=== PATIENT | male | born 1965 | race Caucasian/White ===

== ENCOUNTER → 2016-05-08 | Outpatient (CLI) | payer MEDICARE, OTHER ==
--- NOTE | 2016-05-08 11:44 | FL ---
EXAMINATION TYPE: FL barium swallow DATE OF EXAM ORDERED: 05/08/2016 11:28 AM HISTORY: Reflux and heartburn. COMPARISON: None. FINDINGS: The esophagus distended normally with air and barium without evidence of obstructing or co nstricting disease. The mucosal pattern throughout the esophagus is within normal limits. There is no significant hiatal hernia or reflux. The lower esophagus is somewhat patulous. IMPRESSION: MILDLY PATULOUS LOWER ESOPHAGUS.
== END | disposition home or self-care (01) ==
LOC: RADFLWHC 10:58
PROVIDERS: ATTEND Family Medicine
DX: K22.8 Other specified diseases of esophagus (principal)
CPT/HCPCS: 74220

== ENCOUNTER 2016-06-26 11:30 | Inpatient (IN) | payer MEDICARE, OTHER ==
[2016-06-26] MEDS ORDERED: SODIUM CHLORIDE 0.9% 500 ML IV STA (12:00)
[2016-06-26] MEDS ORDERED: METOCLOPRAMIDE 5 MG/ML 2 ML VIAL IVP STA (12:00)
[2016-06-26] MEDS ORDERED: SODIUM CHLORIDE 0.9% 1,000 ML IV STA (12:00)
[2016-06-26] MEDS ORDERED: DIPHENOX-ATROP 2.5-0.025 MG 1 EACH TAB PO STA (12:00)
--- NOTE | 2016-06-26 12:03 | ED ---
General Adult HPI - General Chief complaint: Nausea/Vomiting/Diarrhea Stated complaint: SORE THROAT, DIZZINESS, VOMITING X 3 DAYS Time Seen by Provider: 06/26/16 11:55 Source: patient, RN notes reviewed Mode of arrival: ambulatory Limitations: no limitations - History of Present Illness Initial comments: This is a 50-year-old male who presents emergency department with past medical history significant for alcoholism. Patient states she's been sober for 9 months. Patient comes in today because the last 3 days he states been vomiting and having diarrhea. Patient states he doesn't have any abdominal pain or has been some abdominal cramping. Patient states he can't keep anything down so he is feeling a little lightheaded and just overall feeling fatigued. Patient denies any headache patient denies any numbness weakness. Patient denies any disorientation. Patient denies any chest pain palpitations or difficulty breathing. Patient denies any blood emesis or in the diarrhea - Related Data Home Medications Medication Instructions Recorded Confirmed Benztropine Mesylate [Cogentin] 1 mg PO DAILY 06/26/16 06/26/16 Cyanocobalamin (Vitamin B-12) 5,000 mcg PO DAILY 06/26/16 06/26/16 [Vitamin B12] Ergocalciferol [Vitamin D2] 50,000 unit PO Q7D 06/26/16 06/26/16 Lisinopril [Zestril] 20 mg PO DAILY 06/26/16 06/26/16 Ranitidine HCl [Zantac] 150 mg PO BID 06/26/16 06/26/16 diphenhydrAMINE [Benadryl] 50 mg PO HS PRN 06/26/16 06/26/16 fluPHENAZine DECANOATE [Prolixin 50 mg IM Q7D 06/26/16 06/26/16 Decanoate] Allergies Allergy/AdvReac Type Severity Reaction Status Date / Time No Known Allergies Allergy Verified 11/01/15 20:24 Review of Systems ROS Statement: Those systems with pertinent positive or pertinent negative responses have been documented in the HPI. ROS Other: All systems not noted in ROS Statement are negative. Past Medical History Past Medical History: GERD/Reflux, Hypertension Additional Past Medical History / Comment(s): VARICOSE VEINS. HAND/ARM TREMORS FAMILT THINAKS MAY BE D/T MEDICATIONS HE'S ON. History of Any Multi-Drug Resistant Organisms: None Reported Past Surgical History: No Surgical Hx Reported Additional Past Surgical History / Comment(s): SPOKE WITH PT'S MOM AND SISTER CONCEPCIÓN-PT HAS NEVER HAD ANY SX. Past Anesthesia/Blood Transfusion Reactions: No Reported Reaction Additional Past Anesthesia/Blood Transfusion Reaction / Comment(s): Never had Past Psychological History: Anxiety, Depression, Schizophrenia Additional Psychological History / Comment(s): MAJOR DEPRSSIVE DISORDER/MOOD DISORDER/PSYCHOSIS/SCHIZOPHRANIA"AUDITORY HALLUCINATIONS" UPON ADMIT 04-17-15 PT DISORGANIZED WITH THOUGHTS,SCATTERED,POOR HISTORIAN. Smoking Status: Never smoker Past Alcohol Use History: None Reported, Daily, Heavy Past Drug Use History: None Reported - Past Family History Father Family Medical History: Myocardial Infarction ([place]) Additional Family Medical History / Comment(s): AT AGE 58 FROM [place] Mother Family Medical History: Deep Vein Thrombosis (DVT), Hypertension Additional Family Medical History / Comment(s): PRIMARY PULMONARY HYPERTENSION General Exam - General Exam Comments Initial Comments: GENERAL: Patient is well-developed and well-nourished. Patient is nontoxic and well- hydrated and is in mild distress. ENT: Neck is soft and supple. No significant lymphadenopathy is noted. Oropharynx is clear. Dry mucous membranes. Neck has full range of motion without eliciting any pain. EYES: The sclera were anicteric and conjunctiva were pink and moist. Extraocular movements were intact and pupils were equal round and reactive to light. Eyelids were unremarkable. PULMONARY: Unlabored respirations. Good breath sounds bilaterally. No audible rales rhonchi or wheezing was noted. CARDIOVASCULAR: There is a regular rate and rhythm without any murmurs gallops or rubs. ABDOMEN: Soft and nontender with normal bowel sounds. SKIN: Skin is clear with no lesions or rashes and otherwise unremarkable. NEUROLOGIC: Patient is alert and oriented x3. Cranial nerves II through XII are grossly intact. Motor and sensory are also intact. Normal speech, volume and content. Symmetrical smile. MUSCULOSKELETAL: Normal extremities with adequate strength and full range of motion. LYMPHATICS: No significant lymphadenopathy is noted PSYCHIATRIC: Normal psychiatric evaluation. Normal interpersonal interactions appears functionally intact in deals appropriately with others. No signs of depression. No signs of anxiety. Limitations: no limitations Course Vital Signs 06/26/16 06/26/16 11:53 12:25 Temperature 97.6 F 98.8 F Pulse Rate 114 H 100 Respiratory 18 20 Rate Blood Pressure 127/80 126/76 O2 Sat by Pulse 98 98 Oximetry Medical Decision Making - Medical Decision Making Patient's sodium was 117 so I we'll keep the patient in the hospital corrected sodium slowly. I spoke with Dr. Turcios and he agreed to admit the patient. - Lab Data Result diagrams: 06/26/16 12:20 06/26/16 12:20 Lab Results 06/26/16 06/26/16 06/26/16 Range/Units 12:20 12:20 12:20 WBC 14.2 H (3.8-10.6) k/uL RBC 4.23 L (4.30-5.90) m/uL Hgb 13.8 (13.0-17.5) gm/dL Hct 36.7 L (39.0-53.0) % MCV 86.7 (80.0-100.0) fL MCH 32.6 (25.0-35.0) pg MCHC 37.6 H (31.0-37.0) g/dL RDW 12.4 (11.5-15.5) % Plt Count 205 (150-450) k/uL Neutrophils % 82 % Lymphocytes % 7 % Monocytes % 8 % Eosinophils % 0 % Basophils % 0 % Neutrophils # 11.7 H (1.3-7.7) k/uL Lymphocytes # 1.0 (1.0-4.8) k/uL Monocytes # 1.2 H (0-1.0) k/uL Eosinophils # 0.0 (0-0.7) k/uL Basophils # 0.0 (0-0.2) k/uL Hyperchromasia Marked Sodium 117 L* (137-145) mmol/L Potassium 3.6 (3.5-5.1) mmol/L Chloride 81 L (98-107) mmol/L Carbon Dioxide 22 (22-30) mmol/L Anion Gap 14 mmol/L BUN 17 (9-20) mg/dL Creatinine 0.65 L (0.66-1.25) mg/dL Est GFR (MDRD) Af Amer >60 (>60 ml/min/1.73 sqM) Est GFR (MDRD) Non-Af >60 (>60 ml/min/1.73 sqM) Glucose 104 H (74-99) mg/dL Calcium 9.1 (8.4-10.2) mg/dL Total Bilirubin 2.6 H (0.2-1.3) mg/dL AST 25 (17-59) U/L ALT 23 (21-72) U/L Alkaline Phosphatase 47 (38-126) U/L Ammonia 10 (<30) umol/L Total Protein 7.2 (6.3-8.2) g/dL Albumin 4.5 (3.5-5.0) g/dL Amylase 47 (30-110) U/L Lipase 62 (23-300) U/L Disposition Clinical Impression: Gastroenteritis, Hyponatremia Disposition: ADMITTED IP TO THIS [facility] Time of Disposition: 13:18
[2016-06-26 12:49] LABS: ALT 23 U/L (21-72); AST 25 U/L (17-59); Alkaline Phosphatase 47 U/L (38-126); Amylase 47 U/L (30-110); Anion Gap 14 mmol/L; Blood Urea Nitrogen 17 mg/dL (9-20); Calcium 9.1 mg/dL (8.4-10.2); Carbon Dioxide 22 mmol/L (22-30); Chloride 81 mmol/L (98-107); Glucose 104 mg/dL (74-99); Non-African American GFR(MDRD) >60 (>60 ml/min/1.73 sqM); Potassium 3.6 mmol/L (3.5-5.1); Total Bilirubin 2.6 mg/dL (0.2-1.3); Total Protein 7.2 g/dL (6.3-8.2)
[2016-06-26 13:03] LABS: Basophils % (A) 0 %; CH 34.1; CHCM 39.5; Eosinophils % (A) 0 %; HCT 36.7 % (39.0-53.0); HDW 2.84; HGB 13.8 gm/dL (13.0-17.5); Hyperchromasia Marked; Luc # (Auto) 0.21; Luc % (Auto) 2; Lymphocytes % (A) 7 %; MCH 32.6 pg (25.0-35.0); MCHC 37.6 g/dL (31.0-37.0); MCV 86.7 fL (80.0-100.0); Monocytes # (A) 1.2 k/uL (0-1.0); Monocytes % (A) 8 %; Neutrophils # (A) 11.7 k/uL (1.3-7.7); Neutrophils % (A) 82 %; RBC 4.23 m/uL (4.30-5.90); RDW 12.4 % (11.5-15.5); WBC 14.2 k/uL (3.8-10.6); WBC (Perox) 12.84
[2016-06-26 13:10] LABS: Sodium 117 mmol/L (137-145)
[2016-06-26] MEDS ORDERED: SODIUM CHLORIDE 0.9% 1,000 ML IV ONE (13:18)
[2016-06-26] MEDS ORDERED: ONDANSETRON 4 MG/2 ML VIAL IVP PRN (13:22)
[2016-06-26] MEDS ORDERED: diphenhydrAMINE 25 MG CAP PO PRN (21:24)
[2016-06-26] MEDS: traZODone HCL 50 MG TAB PO PRN (21:41)
[2016-06-26] MEDS: LISINOPRIL 20 MG TAB PO SCH (21:41)
[2016-06-27 08:41] LABS: Potassium 3.5 mmol/L (3.5-5.1)
[2016-06-27] MEDS: LISINOPRIL 20 MG TAB PO SCH (09:18)
[2016-06-27] MEDS: FAMOTIDINE 20 MG TAB PO SCH ×2 (09:18→20:14)
[2016-06-27] MEDS: BENZTROPINE MESYLATE 1 MG TAB PO SCH (09:18)
[2016-06-27 11:15] VITALS: BMI 25.8
--- NOTE | 2016-06-27 13:10 | P.HPIM ---
History of Present Illness H&P Date: 06/27/16 Chief Complaint: Nausea vomiting dizziness lightheadedness with diarrhea 50-year-old male presented on the day of admission to the emergency room after patient stated over the last several days he been experiencing nausea vomiting loose stool with dizziness lightheadedness could not keep fluids down and became concerned and came into the emergency room to be evaluated for the above- mentioned symptoms. It was noted in the emergency room the sodium level was 119. Patient does have a history of alcoholism. Patient states he has been sober for the last 9 months. Given the above clinical presentation the patient was admitted with gastroenteritis and hyponatremia. Patient was placed on IV hydration 0.9 sodium infused at 100. A repeat sodium level was up to 137. Since admission patient denied any nausea vomiting there was no stool denied dizziness or lightheadedness. The ammonia level was 10. Creatinine 0.65 amylase and lipase were not elevated patient remained afebrile was noted that the patient was able to ambulate in the hallway without dizziness or lightheadedness Patient states he has not been hospitalized recently. Reviewing computerized records indicate the patient was admitted to the mental health unit in April 2015 at that time was treated for hyponatremia sodium on that admission was 125 Review of Systems Essentially unremarkable except as mentioned in the present illness Past Medical History Past Medical History: GERD/Reflux, Hypertension Additional Past Medical History / Comment(s): VARICOSE VEINS. History of Any Multi-Drug Resistant Organisms: None Reported Past Surgical History: No Surgical Hx Reported Additional Past Surgical History / Comment(s): SPOKE WITH PT'S MOM AND SISTER CONCEPCIÓN-PT HAS NEVER HAD ANY SX OTHER THAN TOOTH EXTRACTIONS Past Anesthesia/Blood Transfusion Reactions: No Reported Reaction Additional Past Anesthesia/Blood Transfusion Reaction / Comment(s): Never had Past Psychological History: Anxiety, Depression, Schizophrenia Additional Psychological History / Comment(s): MAJOR DEPRSSIVE DISORDER/MOOD DISORDER/PSYCHOSIS/SCHIZOPHRANIA"AUDITORY HALLUCINATIONS" AT TIME OF THIS ADMIT PT IS ALERT AND ORIENTATED,"FEEELS WELL MAINTAINED ON HIS MEDICATIONS DENIES ANY THOUGHTS OF WANTING TO HARM SELF. PT STATED LIVES BY HIMSELF, NO OUTSIDE SERVICES COME IN TO HELP. DOES'NT DRIVE-TAKES BUS OR TAXI OR UNCLE WILL TAKE TO APPTS. [facility] COMES OUT TWICE A WEEK Smoking Status: Never smoker Past Alcohol Use History: None Reported, Daily, Heavy Additional Past Alcohol Use History / Comment(s): QUIT ETOH OCTOBER 2015 Past Drug Use History: None Reported - Past Family History Father Family Medical History: Myocardial Infarction ([place]) Additional Family Medical History / Comment(s): AT AGE 58 FROM [place] Mother Family Medical History: Deep Vein Thrombosis (DVT), Hypertension Additional Family Medical History / Comment(s): PRIMARY PULMONARY HYPERTENSION Medications and Allergies Home Medications Medication Instructions Recorded Confirmed Type Benztropine Mesylate [Cogentin] 1 mg PO DAILY 06/26/16 06/26/16 History Cyanocobalamin (Vitamin B-12) 5,000 mcg PO DAILY 06/26/16 06/26/16 History [Vitamin B12] Ergocalciferol [Vitamin D2] 50,000 unit PO Q7D 06/26/16 06/26/16 History Lisinopril [Zestril] 20 mg PO DAILY 06/26/16 06/26/16 History Ranitidine HCl [Zantac] 150 mg PO BID 06/26/16 06/26/16 History diphenhydrAMINE [Benadryl] 50 mg PO HS PRN 06/26/16 06/26/16 History fluPHENAZine DECANOATE [Prolixin 50 mg IM Q7D 06/26/16 06/26/16 History Decanoate] Allergies Allergy/AdvReac Type Severity Reaction Status Date / Time No Known Allergies Allergy Verified 11/01/15 20:24 Physical Exam Vitals: Vital Signs Temp Pulse Pulse Resp BP BP Pulse Ox 06/27/16 12:00 98.0 F 98 16 120/79 99 06/27/16 08:00 97.1 F L 106 H 18 108/69 06/27/16 04:00 97.6 F 87 16 95/56 95 06/26/16 23:57 95 16 115/76 97 06/26/16 20:00 97.8 F 95 16 122/81 98 06/26/16 18:57 98.2 F 82 18 132/78 100 06/26/16 16:30 99.0 F 99 14 119/81 99 06/26/16 14:19 92 14 128/82 98 Intake and Output 06/26/16 06/27/16 06/27/16 22:59 06:59 14:59 Intake Total 800 2570 Balance 800 2570 Intake: IV 800 1800 Invasive Line 1 1800 Sodium Chloride 0.9% 1, 800 000 ml @ 100 mls/hr IV . Q10H ONE Rx#:[id number] Oral 770 Other: # Voids 0 Weight 72.575 kg Patient Weight 06/28/16 06:59 Weight 72.575 kg Physical exam 50-year-old male being seen on rounds. Patient was up ambulating in the hallway. Patient denies dizziness or lightheadedness HEENT normocephalic mucous membranes moist Lungs essentially clear with adequate air movement on room air Heart S1-S2 audible and regular Abdomen soft nontender reports no nausea vomiting no further stooling Extremities no edema to the upper or lower extremities Results CBC & Chem 7: 06/26/16 12:20 06/27/16 08:04 Thrombosis Risk Factor Assmnt - Choose All That Apply Any of the Below Risk Factors Present?: Yes Each Factor Represents 1 point: Age 41-60 years, Obesity (BMI >25), Varicose veins Other Risk Factors: No Other congenital or acquired thrombophilia - If yes, enter type in comment: No Thrombosis Risk Factor Assessment Total Risk Factor Score: 3 Thrombosis Risk Factor Assessment Level: Moderate Risk Assessment and Plan Plan: Impression Present on admission nausea vomiting frequent stooling suspect due to viral gastroenteritis Present on admission acute hyponatremia History of schizophrenia with schizoaffective disorder No evidence of psychogenic polydipsia History of alcoholism with his last drink reported 9 months prior Plan Hep-Lock IV Resume home meds as appropriate Transferred to a [facility] floor Repeat labs in the morning DVT and GI prophylaxis The above dictated assessment and findings were discussed with dr Padron Impression and the plan of care have been dictated as directed. Sophy Kaur nurse practitioner acting as a scribe for dr Padron
[2016-06-27] MEDS ORDERED: fluPHENAZine DECANOATE 25 MG/ML 5ML MDV IM SCH (13:15)
[2016-06-27] MEDS ORDERED: ERGOCALCIFEROL 50,000 UNIT CAP PO SCH (13:15)
[2016-06-27] MEDS: traZODone HCL 50 MG TAB PO PRN (22:05)
[2016-06-28 00:17] VITALS: RESP 16
[2016-06-28 07:03] LABS: Anion Gap 11 mmol/L; Blood Urea Nitrogen 6 mg/dL (9-20); Calcium 9.1 mg/dL (8.4-10.2); Carbon Dioxide 23 mmol/L (22-30); Chloride 101 mmol/L (98-107); Glucose 98 mg/dL (74-99); Non-African American GFR(MDRD) >60 (>60 ml/min/1.73 sqM); Potassium 3.6 mmol/L (3.5-5.1); Sodium 135 mmol/L (137-145)
[2016-06-28] MEDS: BENZTROPINE MESYLATE 1 MG TAB PO SCH (08:53)
[2016-06-28] MEDS: LISINOPRIL 20 MG TAB PO SCH (08:54)
[2016-06-28] MEDS: FAMOTIDINE 20 MG TAB PO SCH (08:54)
[2016-06-28 08:56] VITALS: BP 131/86; PULSE 95; TEMP 97.9
--- NOTE | 2016-06-28 10:35 | P.DS ---
Providers Date of admission: 06/26/16 13:18 Expected date of discharge: 06/28/16 Attending physician: Elvin Ruvalcaba Primary care physician: Elvin Ruvalcaba [facility] Course: 50-year-old male presented on the day of admission to the emergency room after patient stated over the last several days he been experiencing nausea vomiting loose stool with dizziness lightheadedness could not keep fluids down and became concerned and came into the emergency room to be evaluated for the above- mentioned symptoms. It was noted in the emergency room the sodium level was 119. Patient does have a history of alcoholism. Patient states he has been sober for the last 9 months. Given the above clinical presentation the patient was admitted with gastroenteritis and hyponatremia. Patient was placed on IV hydration 0.9 sodium infused at 100. A repeat sodium level was up to 137. Since admission patient denied any nausea vomiting there was no stool denied dizziness or lightheadedness. The ammonia level was 10. Creatinine 0.65 amylase and lipase were not elevated patient remained afebrile was noted that the patient was able to ambulate in the hallway without dizziness or lightheadedness On the morning of the discharge date June 28 the sodium was 135. The attending did discuss with the patient to not be drinking excessive amounts of liquid patient verbalized an understanding. There was no further episodes of nausea vomiting no frequent stooling Patient states he has not been hospitalized recently. Reviewing computerized records indicate the patient was admitted to the mental health unit in April 2015 at that time was treated for hyponatremia sodium on that admission was 125 Impression discharge diagnosis Present on admission nausea vomiting frequent stooling suspect due to viral gastroenteritis Present on admission acute hyponatremia resolved History of schizophrenia with schizoaffective disorder No evidence of psychogenic polydipsia History of alcoholism with his last drink reported 9 months prior The above dictated assessment and findings were discussed with dr jordon Butler and the plan of care have been dictated as directed. Sophy Kaur nurse practitioner acting as a scribe for dr ruvalcaba Plan - Discharge Summary Discharge Medication List Benztropine Mesylate [Cogentin] 1 mg PO DAILY 06/26/16 [History] Cyanocobalamin (Vitamin B-12) [Vitamin B12] 5,000 mcg PO DAILY 06/26/16 [History ] Ergocalciferol [Vitamin D2 (DRISDOL)] 50,000 unit PO Q7D 06/26/16 [History] Lisinopril [Zestril] 20 mg PO DAILY 06/26/16 [History] Ranitidine HCl [Zantac] 150 mg PO BID 06/26/16 [History] diphenhydrAMINE [Benadryl] 50 mg PO HS PRN 06/26/16 [History] fluPHENAZine DECANOATE [Prolixin Decanoate] 50 mg IM Q7D 06/26/16 [History] Follow up Appointment(s)/Referral(s): Elvin Ruvalcaba MD [Primary Care Provider] - 1-2 days Patient Instructions/Handouts: Gastroenteritis ([place]) Discharge Disposition: HOME SELF-CARE
[2016-06-28] MEDS ORDERED: CYANOCOBALAMIN 500 MCG TAB PO SCH (12:00)
--- NOTE | 2016-06-28 15:35 | HP ---
DATE OF ADMISSION: 06/26/2016 CHIEF COMPLAINT: Nausea, vomiting, dehydration and hyponatremia. HISTORY OF PRESENT ILLNESS: This is another admission for this 50-year-old white male with schizophrenia. I have not seen him for some time. He came into the emergency room yesterday with nausea, vomiting, diarrhea, and his sodium was 114. He has a past problem with psychogenic water drinking, however. REVIEW OF SYSTEMS: He denies any headaches, chest pain, shortness of breath, cough, hemoptysis, hematemesis, melena, hematochezia, jaundice, hematuria, frequency, urgency, diabetes, etc. Past medical history, family history and personal and social histories are all otherwise unremarkable or noncontributory or unchanged. PHYSICAL EXAMINATION: Blood pressure is 132/84 with a pulse of 90, respirations 30, and he is afebrile. In general he appeared to be slightly pale and dehydrated. Head, ears, eyes, nose, mouth, and throat were normal. Neck veins not distended. Thyroid is not enlarged. Chest is clear. Cardiac exam is normal. Abdomen is soft, nontender. Extremities are normal. IMPRESSION: 1. Probable gastroenteritis. 2. Dehydration. 3. Hyponatremia. 4. Schizophrenia. 5. History of psychogenic water drinking. PLAN: 1. Bed rest. 2. IV fluids. 3. Correct electrolyte imbalance.
--- NOTE | 2016-06-28 15:39 | PN ---
DATE OF SERVICE: 06/27/2016 CHIEF COMPLAINT: Dehydration and hyponatremia. HISTORY OF PRESENT ILLNESS: This gentleman is doing better. Sodium has started to come up. He still feels nauseated. PHYSICAL EXAMINATION: CHEST: Clear. CARDIAC: Normal. ABDOMEN: Soft, nontender. IMPRESSION: 1. Viral gastroenteritis. 2. Dehydration. 3. Hyponatremia. PLAN: 1. Continue with IV fluids and follow labs. 2. Reintroduce diet slowly.
--- NOTE | 2016-06-28 16:07 | PN ---
DATE OF SERVICE: 06/28/2016 CHIEF COMPLAINT: Dehydration, viral gastroenteritis and electrolyte imbalance. HISTORY OF PRESENT ILLNESS: This gentleman is doing well and he is having no problems. He has had no vomiting. Sodium corrected. He is drinking a lot of liquids. PHYSICAL EXAMINATION: ABDOMEN: Soft, nontender. Chest is clear. Cardiac exam is normal. IMPRESSION: 1. Viral gastroenteritis. 2. Dehydration. 3. Hyponatremia. 4. Schizophrenia. 5. History of psychogenic water drinking. PLAN: He can probably go home today and this may be arranged by the nurse practitioner. We will see him in the office.
== END 2016-06-28 13:28 | disposition home or self-care (01) | DRG 641 ==
LOC: EC 11:30 → 6SEL 13:18
PROVIDERS: ADMIT Family Medicine; ATTEND Family Medicine
DX: E87.1 Hypo-osmolality and hyponatremia (principal); E86.0 Dehydration; F25.9 Schizoaffective disorder, unspecified; I10 Essential (primary) hypertension; A08.4 Viral intestinal infection, unspecified; F10.21 Alcohol dependence, in remission; K21.9 Gastro-esophageal reflux disease without esophagitis; R25.1 Tremor, unspecified; F32.9 Major depressive disorder, single episode, unspecified; F41.9 Anxiety disorder, unspecified; Z79.899 Other long term (current) drug therapy
CPT/HCPCS: 36415; 80048; 80051; 80053; 82140; 82150; 83690; 85025; 96361; 96374; 99284

== ENCOUNTER 2018-05-14 17:50 | Emergency (ER) | payer MEDICARE, OTHER ==
--- NOTE | 2018-05-14 19:02 | ED ---
General Adult HPI - General Chief complaint: Recheck/Abnormal Lab/Rx Stated complaint: Sodim IV Time Seen by Provider: 05/14/18 18:15 Source: patient, RN notes reviewed Mode of arrival: ambulatory Limitations: no limitations - History of Present Illness Initial comments: This is a 52-year-old male presents emergency department and states that he has had a chronic history of low sodium and so he is monitored by a internet marketing director and the internet marketing director recently did some lab work. Patient states that lab work showed that his sodium was low enough to come back to the hospital so he is here. Patient states he feels absolutely fine he has no symptoms. Patient denies any pain patient denies any difficulty breathing patient denies any weakness. Patient denies any recent fever or chills. - Related Data Home Medications Medication Instructions Recorded Confirmed Benztropine Mesylate [Cogentin] 1 mg PO BID 06/26/16 05/14/18 Cyanocobalamin (Vitamin B-12) 5,000 mcg PO DAILY 06/26/16 05/14/18 [Vitamin B12] Ergocalciferol [Vitamin D2 50,000 unit PO Q48H 06/26/16 05/14/18 (DRISDOL)] Lisinopril [Zestril] 20 mg PO DAILY 06/26/16 05/14/18 diphenhydrAMINE [Benadryl] 50 mg PO HS PRN 06/26/16 05/14/18 fluPHENAZine DECANOATE [Prolixin 50 mg IM TH 06/26/16 05/14/18 Decanoate] Atenolol [Tenormin] 50 mg PO DAILY 05/14/18 05/14/18 Furosemide [Lasix] 20 mg PO DAILY 05/14/18 05/14/18 Omeprazole 20 mg PO Q48H 05/14/18 05/14/18 Potassium Chloride ER [K-Dur 20] 20 meq PO DAILY 05/14/18 05/14/18 Sodium Chloride Tab 1 gm PO BID 05/14/18 05/14/18 Allergies Allergy/AdvReac Type Severity Reaction Status Date / Time No Known Allergies Allergy Verified 05/14/18 19:42 Review of Systems ROS Statement: Those systems with pertinent positive or pertinent negative responses have been documented in the HPI. ROS Other: All systems not noted in ROS Statement are negative. Past Medical History Past Medical History: GERD/Reflux, Hypertension Additional Past Medical History / Comment(s): VARICOSE VEINS. History of Any Multi-Drug Resistant Organisms: None Reported Past Surgical History: No Surgical Hx Reported Additional Past Surgical History / Comment(s): SPOKE WITH PT'S MOM AND SISTER CONCEPCIÓN-PT HAS NEVER HAD ANY SX OTHER THAN TOOTH EXTRACTIONS Past Anesthesia/Blood Transfusion Reactions: No Reported Reaction Additional Past Anesthesia/Blood Transfusion Reaction / Comment(s): Never had Past Psychological History: Anxiety, Depression, Schizophrenia Smoking Status: Never smoker Past Alcohol Use History: None Reported, Daily, Heavy Past Drug Use History: None Reported - Past Family History Father Family Medical History: Myocardial Infarction ([place]) Additional Family Medical History / Comment(s): AT AGE 58 FROM [place] Mother Family Medical History: Deep Vein Thrombosis (DVT), Hypertension Additional Family Medical History / Comment(s): PRIMARY PULMONARY HYPERTENSION General Exam - General Exam Comments Initial Comments: GENERAL: Patient is well-developed and well-nourished. Patient is nontoxic and well- hydrated and is in no acute distress. ENT: Neck is soft and supple. No significant lymphadenopathy is noted. Oropharynx is clear. Moist mucous membranes. Neck has full range of motion without eliciting any pain. EYES: The sclera were anicteric and conjunctiva were pink and moist. Extraocular movements were intact and pupils were equal round and reactive to light. Eyelids were unremarkable. PULMONARY: Unlabored respirations. Good breath sounds bilaterally. No audible rales rhonchi or wheezing was noted. CARDIOVASCULAR: There is a regular rate and rhythm without any murmurs gallops or rubs. ABDOMEN: Soft and nontender with normal bowel sounds. No palpable organomegaly was noted. There is no palpable pulsatile mass. SKIN: Skin is clear with no lesions or rashes and otherwise unremarkable. NEUROLOGIC: Patient is alert and oriented x3. Cranial nerves II through XII are grossly intact. Motor and sensory are also intact. Normal speech, volume and content. Symmetrical smile. MUSCULOSKELETAL: Normal extremities with adequate strength and full range of motion. No lower extremity swelling or edema. No calf tenderness. LYMPHATICS: No significant lymphadenopathy is noted PSYCHIATRIC: Normal psychiatric evaluation. Limitations: no limitations Course Vital Signs 05/14/18 05/14/18 18:14 20:10 Temperature 97.8 F Pulse Rate 78 69 Respiratory 20 16 Rate Blood Pressure 148/88 107/72 O2 Sat by Pulse 99 99 Oximetry Medical Decision Making - Medical Decision Making Patient's sodium was 127. I gave the patient a 500 mL bolus of normal saline. I spoke with Dr. Silver she did not think that was too low and did not need to keep the patient I sent the patient home to get labs done on Friday and she will follow the patient up as an outpatient. Patient remains asymptomatic throughout his ED stay. - Lab Data Result diagrams: 05/14/18 18:50 05/14/18 18:50 Lab Results 05/14/18 05/14/18 Range/Units 18:50 18:50 WBC 5.3 (3.8-10.6) k/uL RBC 4.24 L (4.30-5.90) m/uL Hgb 13.7 (13.0-17.5) gm/dL Hct 37.7 L (39.0-53.0) % MCV 88.8 (80.0-100.0) fL MCH 32.3 (25.0-35.0) pg MCHC 36.4 (31.0-37.0) g/dL RDW 12.3 (11.5-15.5) % Plt Count 217 (150-450) k/uL Neutrophils % 53 % Lymphocytes % 32 % Monocytes % 9 % Eosinophils % 2 % Basophils % 1 % Neutrophils # 2.8 (1.3-7.7) k/uL Lymphocytes # 1.7 (1.0-4.8) k/uL Monocytes # 0.5 (0-1.0) k/uL Eosinophils # 0.1 (0-0.7) k/uL Basophils # 0.0 (0-0.2) k/uL Sodium 127 L (137-145) mmol/L Potassium 4.0 (3.5-5.1) mmol/L Chloride 94 L (98-107) mmol/L Carbon Dioxide 24 (22-30) mmol/L Anion Gap 9 mmol/L BUN 8 L (9-20) mg/dL Creatinine 0.82 (0.66-1.25) mg/dL Est GFR (CKD-EPI)AfAm >90 (>60 ml/min/1.73 sqM) Est GFR (CKD-EPI)NonAf >90 (>60 ml/min/1.73 sqM) Glucose 106 H (74-99) mg/dL Calcium 9.7 (8.4-10.2) mg/dL Total Bilirubin 2.2 H (0.2-1.3) mg/dL AST 25 (17-59) U/L ALT 26 (21-72) U/L Alkaline Phosphatase 36 L (38-126) U/L Total Protein 7.2 (6.3-8.2) g/dL Albumin 4.9 (3.5-5.0) g/dL Disposition Clinical Impression: Hyponatremia Disposition: HOME SELF-CARE Condition: Good Instructions: Hyponatremia (ED) Additional Instructions: Patient needs to get his blood redrawn on Friday and follow-up with Dr. Silver later in the day. Is patient prescribed a controlled substance at d/c from ED?: No Referrals: Nat Silver MD [STAFF PHYSICIAN] - 1-2 days Time of Disposition: 20:16
[2018-05-14 19:23] LABS: Basophils % (A) 1 %; Eosinophils # (A) 0.1 k/uL (0-0.7); Eosinophils % (A) 2 %; HCT 37.7 % (39.0-53.0); HGB 13.7 gm/dL (13.0-17.5); Lymphocytes # (A) 1.7 k/uL (1.0-4.8); Lymphocytes % (A) 32 %; MCH 32.3 pg (25.0-35.0); MCHC 36.4 g/dL (31.0-37.0); MCV 88.8 fL (80.0-100.0); Mean Platelet Volume 6.7; Monocytes # (A) 0.5 k/uL (0-1.0); Monocytes % (A) 9 %; Neutrophils # (A) 2.8 k/uL (1.3-7.7); Neutrophils % (A) 53 %; Platelet Count 217 k/uL (150-450); RBC 4.24 m/uL (4.30-5.90); RDW 12.3 % (11.5-15.5); WBC 5.3 k/uL (3.8-10.6)
[2018-05-14 19:33] LABS: ALT 26 U/L (21-72); AST 25 U/L (17-59); Albumin 4.9 g/dL (3.5-5.0); Alkaline Phosphatase 36 U/L (38-126); Anion Gap 9 mmol/L; Blood Urea Nitrogen 8 mg/dL (9-20); Calcium 9.7 mg/dL (8.4-10.2); Carbon Dioxide 24 mmol/L (22-30); Chloride 94 mmol/L (98-107); Glucose 106 mg/dL (74-99); Sodium 127 mmol/L (137-145); Total Bilirubin 2.2 mg/dL (0.2-1.3); Total Protein 7.2 g/dL (6.3-8.2)
[2018-05-14] MEDS ORDERED: SODIUM CHLORIDE 0.9% 500 ML 500 ML IV ONE (19:44)
[2018-05-14 20:10] VITALS: BP 107/72; PULSE 69; RESP 16
[2018-05-14 20:30] VITALS: TEMP 98.1
== END 2018-05-14 20:28 | disposition home or self-care (01) ==
LOC: EC 17:50
DX: E87.1 Hypo-osmolality and hyponatremia (principal); I10 Essential (primary) hypertension; K21.9 Gastro-esophageal reflux disease without esophagitis; Z79.899 Other long term (current) drug therapy
CPT/HCPCS: 36415; 80053; 85025; 99283

== ENCOUNTER → 2018-05-19 | Outpatient (CLI) | payer MEDICARE, OTHER ==
[2018-05-20 04:16] LABS: Albumin 4.6 g/dL (3.80-4.90); Albumin/Globulin Ratio 3.07 (1.20-2.10); Anion Gap 7.4 mmol/L (4.00-12.00); Carbon Dioxide 25.6 mmol/L (21.6-31.8); Globulin 1.5 g/dL (1.6-3.3); Potassium 3.9 mmol/L (3.5-5.5); Total Bilirubin 1.7 mg/dL (0.3-1.2); Total Protein 6.1 g/dL (6.2-8.2)
== END | disposition home or self-care (01) ==
LOC: LABWHC1 16:42
PROVIDERS: ATTEND Nurse Practitioner Family
DX: E87.1 Hypo-osmolality and hyponatremia (principal)
CPT/HCPCS: 36415; 80053

== ENCOUNTER 2018-06-11 10:22 | Day surgery (SDC) | payer MEDICARE, OTHER ==
[2018-06-10 08:59] VITALS: BMI 28.2
[2018-06-11 10:46] VITALS: RESP 16; TEMP 98
[2018-06-11] MEDS ORDERED: LACTATED RINGERS 1,000 ML IV ONE (10:52)
[2018-06-11] MEDS ORDERED: PROPOFOL 10 MG/ML 20 ML VIAL IV ONE (11:50)
--- NOTE | 2018-06-11 12:27 | P.PCN ---
Date of Procedure: 06/11/18 Procedure(s) Performed: Procedure: Colonoscopy and polypectomy. Preoperative diagnosis: Screening for colon cancer. Postoperative diagnosis: 1. Flat rectal polyp partially removed with the snare piecemeal. 2. Sigmoid diverticulosis with no evidence of acute diverticulitis or strictures. Preparation: HalfLytely prep. Sedation: Was provided by anesthesia. Brief clinical history: The patient is a 52-year-old male who is scheduled for this evaluation for screening for neoplasia age being his risk factor. There is no family history of colon cancer. The patient does no abdominal pains, change in bowel habits or bleeding. This would be his first colonoscopy. Procedure: With the patient on his left lateral decubitus position and after informed consent and adequate sedation, the perianal area was inspected and it did not show any fissures or fistulas. There were no masses felt on digital rectal examination. The Olympus CFH 190L video colonoscope was then inserted in the rectum in the usual fashion and advanced to the cecum. There were several diverticular orifices seen scattered in the sigmoid but I saw no evidence of acute diverticulitis or strictures. There was a flat polypoid area in the rectum close to the rectosigmoid junction measuring 2-3 cm in greatest dimension. I partially removed it piecemeal with the snare with good hemostasis. I retroflexed the endoscope in the rectum before the endoscope was withdrawn. The patient tolerated the procedure well. Plan: The patient was reassured. Discussed dietary measures. He will follow up with you as planned and I would like to see him in follow-up in the office in 2-3 months and plan further evaluation depending on his course and pathology results. I will keep you updated on his progress.
[2018-06-11 12:48] VITALS: BP 157/86; PULSE 87
== END 2018-06-11 13:15 | disposition home or self-care (01) ==
LOC: ORWHC2ENDO 10:22
DX: Z12.11 Encounter for screening for malignant neoplasm of colon (principal); D12.8 Benign neoplasm of rectum; K21.9 Gastro-esophageal reflux disease without esophagitis; I10 Essential (primary) hypertension; F41.9 Anxiety disorder, unspecified; K57.30 Diverticulosis of large intestine without perforation or abscess without bleeding; F32.9 Major depressive disorder, single episode, unspecified; F20.9 Schizophrenia, unspecified; Z79.899 Other long term (current) drug therapy; Z86.73 Personal history of transient ischemic attack (TIA), and cerebral infarction without residual deficits
CPT/HCPCS: 88305; 45385; J2704

== ENCOUNTER 2019-01-25 08:48 | Day surgery (SDC) | payer MEDICARE, OTHER ==
[2019-01-22 08:59] VITALS: BMI 29.8
[~2019-01-25 08:48] MED LIST: LACTATED RINGERS 1,000 ML IV SCH; LIDOCAINE 1% 20 ML VIAL (10MG/ML) FOR IV START INTRADERMA PRN
[2019-01-25 09:08] VITALS: TEMP 96.8
[2019-01-25] MEDS ORDERED: LIDOCAINE 1% INJ 10MG/ML (20 ML MDV) ONE (09:41)
[2019-01-25] MEDS ORDERED: PROPOFOL 10 MG/ML 20 ML VIAL IV ONE (09:41)
--- NOTE | 2019-01-25 10:14 | P.PCN ---
Date of Procedure: 01/25/19 Description of Procedure: BRIEF HISTORY: Patient is a 53-year-old pleasant male scheduled for an elective colonoscopy as a part of follow-up after colonoscopy in 06/2018 with piecemeal resection of large rectal polyp. The patient was seen on 06/11/2018 at which time a 2-3 cm flat rectal polyp close to the rectosigmoid regimen approximately 2-3 cm in size was removed with cold snare polypectomy. Pathology was significant for tubular adenoma and the patient is following up for repeat colonoscopy. PROCEDURE PERFORMED: Colonoscopy. PREOPERATIVE DIAGNOSIS: History of colon polyps, last colonoscopy 06/2018 with piecemeal resection of a rectal colon polyp. ESTIMATED BLOOD LOSS: Minimal. IV sedation per Anesthesia. PROCEDURE: After informed consent was obtained, the patient, was brought into the endoscopy unit. IV sedation was administered by Anesthesia under continuous monitoring. Digital rectal examination was normal. Initially the Olympus CF-190 flexible video colonoscope was then inserted in the rectum, gradually advanced into the cecum without any difficulty. Careful examination was performed as the scope was gradually being withdrawn. Ileocecal valve and the appendiceal orifice were visualized and appeared normal. Prep was excellent. Mucosa of the cecum, ascending colon, transverse colon, descending colon, sigmoid colon, and rectum appeared normal. A few small mouth diverticula were noted in the left colon. Careful examination of the rectosigmoid and rectum at the location of previously removed polyps failed to show any remaining tissue. Retroflexion was performed in the rectum and no lesions were seen. The patient tolerated the procedure well. IMPRESSION: Careful examination of the rectum and rectosigmoid location of previously removed rectal polyp with no remaining abnormal tissue noted. Mild left-sided colonic diverticulosis. RECOMMENDATIONS: Findings of this examination were discussed with the patient and his brother. Okay to resume diet and medications. Recommend repeat colonoscopy in 3 years for high risk colon polyps.
[2019-01-25 10:33] VITALS: BP 36/78; PULSE 77; RESP 18
== END 2019-01-25 10:44 | disposition home or self-care (01) ==
LOC: ORWHC2ENDO 08:48
PROVIDERS: ATTEND Internal Medicine
DX: Z12.11 Encounter for screening for malignant neoplasm of colon (principal); Z86.010 Personal history of colon polyps; K21.9 Gastro-esophageal reflux disease without esophagitis; K57.30 Diverticulosis of large intestine without perforation or abscess without bleeding; I10 Essential (primary) hypertension; Z87.898 Personal history of other specified conditions; Z79.899 Other long term (current) drug therapy
CPT/HCPCS: J2001; J2704; G0105; 45378

== ENCOUNTER 2019-10-04 11:53 | Emergency (ER) | payer MEDICARE, OTHER ==
[2019-10-04 11:58] VITALS: TEMP 98
--- NOTE | 2019-10-04 12:50 | ED ---
General Adult HPI - General Chief complaint: Extremity Problem,Nontraumatic Stated complaint: right foot/ankle swelling Time Seen by Provider: 10/04/19 12:39 Source: patient Mode of arrival: ambulatory Limitations: no limitations - History of Present Illness Initial comments: Patient is a 53-year-old male presenting to the emergency department with chief complaint of ankle or feet swelling. Patient reports incident occurred yesterday has gradually increased in severity. Patient states he might a stepped on a nail but is not completely sure. States it initially started on the right lower extremity now he has also noticed that her left lower ext remity. States he does not leave his house much. States he sees a boardmarker. 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 He states he has tapered down to about 2-3 L of ". States he has a history of hypertension and poor urinary excretion so he takes Lasix daily. Denies any night sweats fevers or chills. Denies any chest pain or shortness of breath at this time. - Related Data Home Medications Medication Instructions Recorded Confirmed Cyanocobalamin (Vitamin B-12) 5,000 mcg PO DAILY 06/26/16 01/22/19 [Vitamin B-12] Lisinopril [Zestril] 20 mg PO HS 06/26/16 01/22/19 diphenhydrAMINE [Benadryl] 50 mg PO HS PRN 06/26/16 01/22/19 fluPHENAZine DECANOATE [Prolixin 50 mg IM TH 06/26/16 01/22/19 Decanoate] Atenolol [Tenormin] 50 mg PO DAILY 05/14/18 01/22/19 Furosemide [Lasix] 20 mg PO DAILY 05/14/18 01/22/19 Omeprazole 20 mg PO Q48H 05/14/18 01/22/19 Potassium Chloride ER [K-Dur 20] 10 meq PO DAILY 05/14/18 01/22/19 Sodium Chloride Tab 1 gm PO BID 05/14/18 01/22/19 Cholecalciferol [Vitamin D3] 5,000 unit PO Q48H 06/10/18 01/22/19 Fluticasone Nasal [place] [Flonase 1 spray EA NOSTRIL DAILY 06/10/18 01/22/19 Nasal [place]] Naltrexone HCl [Revia] 50 mg PO DAILY 01/22/19 01/22/19 Tamsulosin [Flomax] 0.4 mg PO BID 01/22/19 01/22/19 Allergies Allergy/AdvReac Type Severity Reaction Status Date / Time No Known Allergies Allergy Verified 10/04/19 11:58 Review of Systems ROS Statement: Those systems with pertinent positive or pertinent negative responses have been documented in the HPI. ROS Other: All systems not noted in ROS Statement are negative. Past Medical History Past Medical History: GERD/Reflux, Hypertension Additional Past Medical History / Comment(s): VARICOSE VEINS. History of Any Multi-Drug Resistant Organisms: None Reported Past Surgical History: No Surgical Hx Reported Additional Past Surgical History / Comment(s): TOOTH EXTRACTIONS Past Anesthesia/Blood Transfusion Reactions: No Reported Reaction Additional Past Anesthesia/Blood Transfusion Reaction / Comment(s): Never had Past Psychological History: Anxiety, Depression, Schizophrenia Smoking Status: Never smoker - Past Family History Father Family Medical History: Myocardial Infarction ([place]) Additional Family Medical History / Comment(s): AT AGE 58 FROM [place] Mother Family Medical History: Deep Vein Thrombosis (DVT), Hypertension Additional Family Medical History / Comment(s): PRIMARY PULMONARY HYPERTENSION General Exam Limitations: no limitations General appearance: alert, in no apparent distress Head exam: Present: atraumatic, normocephalic, normal inspection Eye exam: Present: normal appearance, PERRL, EOMI Pupils: Present: normal accommodation ENT exam: Present: normal exam, mucous membranes moist Neck exam: Present: normal inspection, full ROM Respiratory exam: Present: normal lung sounds bilaterally Cardiovascular Exam: Present: regular rate, normal rhythm, normal heart sounds Extremities exam: Present: normal inspection (Non-erythematous swelling noted in the bilateral lower extremity. No overlying skin changes suggesting cellulitis.), full ROM, normal capillary refill, pedal edema (+2 pitting edema right lower extremity. +1 pitting edema in the left lower extremity.), other (+2 dorsalis pedis and posterior tibialis bilaterally.). Absent: tenderness, calf tenderness (Negative Homans bilaterally.) Back exam: Present: normal inspection, full ROM Neurological exam: Present: alert, oriented X3 Psychiatric exam: Present: normal affect, normal mood Skin exam: Present: warm, dry, intact, normal color Course Vital Signs 10/04/19 10/04/19 10/04/19 11:53 13:30 14:00 Temperature 98.0 F Pulse Rate 78 63 61 Respiratory 18 15 17 Rate Blood Pressure 109/68 108/74 105/76 O2 Sat by Pulse 100 98 Oximetry 10/04/19 10/04/19 10/04/19 14:30 15:00 15:30 Temperature Pulse Rate 60 55 L 68 Respiratory 14 19 19 Rate Blood Pressure 109/82 105/73 117/81 O2 Sat by Pulse 98 Oximetry 10/04/19 16:00 Temperature Pulse Rate 78 Respiratory 18 Rate Blood Pressure 112/80 O2 Sat by Pulse Oximetry Medical Decision Making - Medical Decision Making Patient is a 53-year-old male presenting to emergency Department with a chief complaint of feet and ankle swelling. On exam patient has bilateral lower extremity edema localized to the feet and ankle region. +2 pitting edema on the right lower extremity +1 pitting edema in the left lower extremity. No overlying cellulitic skin changes noted. Patient does take Lasix for poor urinary excretion. Patient does drink large amounts of diet Coke daily. Patient to see a boardmarker and is scheduled to see him within this week. CBC CMP are unremarkable. BNP is within normal limits. Chest x-ray is unremarkable. EKG reveals sinus rhythm and no ST changes. Patient denies any shortness of breath or chest pain at this time. Patient given 20 mg of IV Lasix. I suspect this is due to fluid overload. Return parameters were thoroughly discussed with patient was understanding and agreeable. Case discussed with physician. - Lab Data Result diagrams: 10/04/19 13:10/04/19 13: Lab Results 10/04/19 10/04/19 10/04/19 Range/Units 13: 13: 13: WBC 4.6 (3.8-10.6) k/uL RBC 4.13 L (4.30-5.90) m/uL Hgb 13.5 (13.0-17.5) gm/dL Hct 38.9 L (39.0-53.0) % MCV 94.1 (80.0-100.0) fL MCH 32.6 (25.0-35.0) pg MCHC 34.7 (31.0-37.0) g/dL RDW 14.1 (11.5-15.5) % Plt Count 213 (150-450) k/uL Neutrophils % 62 % Lymphocytes % 21 % Monocytes % 10 % Eosinophils % 3 % Basophils % 1 % Neutrophils # 2.9 (1.3-7.7) k/uL Lymphocytes # 1.0 (1.0-4.8) k/uL Monocytes # 0.4 (0-1.0) k/uL Eosinophils # 0.1 (0-0.7) k/uL Basophils # 0.0 (0-0.2) k/uL Sodium 139 (137-145) mmol/L Potassium 4.0 (3.5-5.1) mmol/L Chloride 106 (98-107) mmol/L Carbon Dioxide 23 (22-30) mmol/L Anion Gap 10 mmol/L BUN 7 L (9-20) mg/dL Creatinine 0.75 (0.66-1.25) mg/dL Est GFR (CKD-EPI)AfAm >90 (>60 ml/min/1.73 sqM) Est GFR (CKD-EPI)NonAf >90 (>60 ml/min/1.73 sqM) Glucose 92 (74-99) mg/dL Calcium 9.6 (8.4-10.2) mg/dL Total Bilirubin 0.9 (0.2-1.3) mg/dL AST 41 (17-59) U/L ALT 58 H (4-49) U/L Alkaline Phosphatase 51 (38-126) U/L NT-Pro-B Natriuret Pep 85 pg/mL Total Protein 7.1 (6.3-8.2) g/dL Albumin 4.4 (3.5-5.0) g/dL Disposition Clinical Impression: Bilateral lower extremity edema Disposition: HOME SELF-CARE Condition: Stable Instructions (If sedation given, give patient instructions): Leg Edema (ED) Additional Instructions: Follow-up with your kidney doctor. Return to emergency department if symptoms worsen. Is patient prescribed a controlled substance at d/c from ED?: No Referrals: [facility] [Primary Care Provider] - 1-2 days Time of Disposition: 15:34
--- NOTE | 2019-10-04 13:19 | XR ---
EXAMINATION TYPE: XR chest 2V DATE OF EXAM: 10/04/2019 COMPARISON: None HISTORY: 53-year-old male with chest pain TECHNIQUE: PA and lateral views FINDINGS: The cardiomediastinal silhouette, aorta, and pulmonary vasculature are within normal limits. Lungs an d pleural spaces are clear. IMPRESSION: No acute cardiopulmonary process.
[2019-10-04 13:52] LABS: Basophils % (A) 1 %; Eosinophils # (A) 0.1 k/uL (0-0.7); Eosinophils % (A) 3 %; HCT 38.9 % (39.0-53.0); HGB 13.5 gm/dL (13.0-17.5); Lymphocytes % (A) 21 %; MCH 32.6 pg (25.0-35.0); MCHC 34.7 g/dL (31.0-37.0); MCV 94.1 fL (80.0-100.0); Mean Platelet Volume 8.1; Monocytes # (A) 0.4 k/uL (0-1.0); Monocytes % (A) 10 %; Neutrophils # (A) 2.9 k/uL (1.3-7.7); Neutrophils % (A) 62 %; Platelet Count 213 k/uL (150-450); RBC 4.13 m/uL (4.30-5.90); RDW 14.1 % (11.5-15.5); WBC 4.6 k/uL (3.8-10.6)
[2019-10-04 13:59] LABS: ALT 58 U/L (4-49); AST 41 U/L (17-59); African American GFR (CKD) >90 (>60 ml/min/1.73 sqM); Albumin 4.4 g/dL (3.5-5.0); Alkaline Phosphatase 51 U/L (38-126); Anion Gap 10 mmol/L; Blood Urea Nitrogen 7 mg/dL (9-20); Calcium 9.6 mg/dL (8.4-10.2); Carbon Dioxide 23 mmol/L (22-30); Chloride 106 mmol/L (98-107); Glucose 92 mg/dL (74-99); Non-African American GFR(CKD) >90 (>60 ml/min/1.73 sqM); Sodium 139 mmol/L (137-145); Total Bilirubin 0.9 mg/dL (0.2-1.3); Total Protein 7.1 g/dL (6.3-8.2)
[2019-10-04] MEDS ORDERED: FUROSEMIDE 10 MG/ML 2 ML VIAL IV ONE (14:58)
[2019-10-04 16:19] VITALS: BP 112/80; PULSE 78; RESP 18
== END 2019-10-04 16:22 | disposition home or self-care (01) ==
LOC: EC 11:53
DX: R60.0 Localized edema (principal); I10 Essential (primary) hypertension; K21.9 Gastro-esophageal reflux disease without esophagitis
CPT/HCPCS: 36415; 93005; 83880; 80053; 85025; 71046; 99284; 96374; J1940

== ENCOUNTER 2019-10-22 14:54 | Observation (INO) | payer MEDICARE, OTHER ==
--- NOTE | 2019-10-22 15:39 | ED ---
General Adult HPI - General Chief complaint: GI Bleed Stated complaint: rectal bleeding Time Seen by Provider: 10/22/19 14:55 Source: patient, RN notes reviewed, old records reviewed Mode of arrival: ambulatory Limitations: no limitations - History of Present Illness Initial comments: This is a 53-year-old male who presents emergency department with past medical history significant for schizophrenia according to the brother his medications have recently been changed. Patient comes in today because he states he is having rectal bleeding since this morning. He states is bright red blood the 2 times he had a bowel movement. Patient states there was quite a bit of blood. Patient denies any rectal pain. Patient denies any anal sex. Patient denies any trauma to that area. Patient denies any abdominal pain. Brother does state that the patient's hygiene is severely worsening and has been he doesn't think Medications are serving as well. Patient denies any fever. Patient denies chest pain difficulty breathing shortness of breath. - Related Data Home Medications Medication Instructions Recorded Confirmed Cyanocobalamin (Vitamin B-12) 5,000 mcg PO DAILY 06/26/16 01/22/19 [Vitamin B-12] Lisinopril [Zestril] 20 mg PO HS 06/26/16 01/22/19 diphenhydrAMINE [Benadryl] 50 mg PO HS PRN 06/26/16 01/22/19 fluPHENAZine DECANOATE [Prolixin 50 mg IM TH 06/26/16 01/22/19 Decanoate] Atenolol [Tenormin] 50 mg PO DAILY 05/14/18 01/22/19 Furosemide [Lasix] 20 mg PO DAILY 05/14/18 01/22/19 Omeprazole 20 mg PO Q48H 05/14/18 01/22/19 Potassium Chloride ER [K-Dur 20] 10 meq PO DAILY 05/14/18 01/22/19 Sodium Chloride Tab 1 gm PO BID 05/14/18 01/22/19 Cholecalciferol [Vitamin D3] 5,000 unit PO Q48H 06/10/18 01/22/19 Fluticasone Nasal [place] [Flonase 1 spray EA NOSTRIL DAILY 06/10/18 01/22/19 Nasal [place]] Naltrexone HCl [Revia] 50 mg PO DAILY 09/20/19 09/20/19 Tamsulosin [Flomax] 0.4 mg PO BID 01/22/19 01/22/19 Allergies Allergy/AdvReac Type Severity Reaction Status Date / Time No Known Allergies Allergy Verified 10/22/19 15:01 Review of Systems ROS Statement: Those systems with pertinent positive or pertinent negative responses have been documented in the HPI. ROS Other: All systems not noted in ROS Statement are negative. Past Medical History Past Medical History: GERD/Reflux, Hypertension Additional Past Medical History / Comment(s): VARICOSE VEINS. History of Any Multi-Drug Resistant Organisms: None Reported Past Surgical History: No Surgical Hx Reported Additional Past Surgical History / Comment(s): TOOTH EXTRACTIONS Past Anesthesia/Blood Transfusion Reactions: No Reported Reaction Additional Past Anesthesia/Blood Transfusion Reaction / Comment(s): Never had Past Psychological History: Anxiety, Depression, Schizophrenia Smoking Status: Never smoker - Past Family History Father Family Medical History: Myocardial Infarction ([place]) Additional Family Medical History / Comment(s): AT AGE 58 FROM [place] Mother Family Medical History: Deep Vein Thrombosis (DVT), Hypertension Additional Family Medical History / Comment(s): PRIMARY PULMONARY HYPERTENSION General Exam - General Exam Comments Initial Comments: GENERAL: Patient is well-developed and well-nourished. Patient is nontoxic and well- hydrated and is in no acute distress. ENT: Neck is soft and supple. No significant lymphadenopathy is noted. Oropharynx is clear. Moist mucous membranes. Neck has full range of motion without eliciting any pain. EYES: The sclera were anicteric and conjunctiva were pink and moist. Extraocular movements were intact and pupils were equal round and reactive to light. Eyelids were unremarkable. PULMONARY: Unlabored respirations. Good breath sounds bilaterally. No audible rales rhonchi or wheezing was noted. CARDIOVASCULAR: There is a regular rate and rhythm without any murmurs gallops or rubs. RECTAL: There was no obvious source of bright red blood. Patient had excoriation all around the anus. It looked like very poor hygiene. ABDOMEN: Soft and nontender with normal bowel sounds. No palpable organomegaly was noted. There is no palpable pulsatile mass. SKIN: Skin is clear with no lesions or rashes and otherwise unremarkable. NEUROLOGIC: Patient is alert and oriented x3. Cranial nerves II through XII are grossly intact. Motor and sensory are also intact. Normal speech, volume and content. Symmetrical smile. MUSCULOSKELETAL: Normal extremities with adequate strength and full range of motion. LYMPHATICS: No significant lymphadenopathy is noted PSYCHIATRIC: Normal psychiatric evaluation. Limitations: no limitations Course Vital Signs 10/22/19 10/22/19 10/22/19 14:56 15:30 16:00 Temperature 98.4 F Pulse Rate 107 H 97 81 Respiratory 18 14 18 Rate Blood Pressure 136/90 145/95 157/106 O2 Sat by Pulse 98 97 Oximetry 10/22/19 16:30 Temperature Pulse Rate 72 Respiratory 22 Rate Blood Pressure 160/104 O2 Sat by Pulse 97 Oximetry Medical Decision Making - Medical Decision Making I spoke with Dr. Harrison agreed to admit the patient admitted the patient wrote admitting orders. - Lab Data Result diagrams: 10/22/19 15:18 10/22/19 15:18 Lab Results 10/22/19 10/22/19 10/22/19 Range/Units 15:18 15:18 15:18 WBC 9.9 (3.8-10.6) k/uL RBC 4.13 L (4.30-5.90) m/uL Hgb 13.0 (13.0-17.5) gm/dL Hct 38.1 L (39.0-53.0) % MCV 92.1 (80.0-100.0) fL MCH 31.5 (25.0-35.0) pg MCHC 34.2 (31.0-37.0) g/dL RDW 13.1 (11.5-15.5) % Plt Count 191 (150-450) k/uL Neutrophils % 85 % Lymphocytes % 6 % Monocytes % 6 % Eosinophils % 1 % Basophils % 1 % Neutrophils # 8.4 H (1.3-7.7) k/uL Lymphocytes # 0.6 L (1.0-4.8) k/uL Monocytes # 0.6 (0-1.0) k/uL Eosinophils # 0.1 (0-0.7) k/uL Basophils # 0.1 (0-0.2) k/uL PT 10.6 (9.0-12.0) sec INR 1.0 (<1.2) APTT 27.7 (22.0-30.0) sec Sodium 133 L (137-145) mmol/L Potassium 3.5 (3.5-5.1) mmol/L Chloride 102 (98-107) mmol/L Carbon Dioxide 22 (22-30) mmol/L Anion Gap 9 mmol/L BUN 5 L (9-20) mg/dL Creatinine 0.55 L (0.66-1.25) mg/dL Est GFR (CKD-EPI)AfAm >90 (>60 ml/min/1.73 sqM) Est GFR (CKD-EPI)NonAf >90 (>60 ml/min/1.73 sqM) Glucose 103 H (74-99) mg/dL Calcium 9.0 (8.4-10.2) mg/dL Total Bilirubin 2.4 H (0.2-1.3) mg/dL AST 41 (17-59) U/L ALT 28 (4-49) U/L Alkaline Phosphatase 53 (38-126) U/L Total Protein 6.9 (6.3-8.2) g/dL Albumin 4.3 (3.5-5.0) g/dL Disposition Clinical Impression: Rectal bleeding Disposition: ADMITTED IP TO THIS [facility] Referrals: [facility] [Primary Care Provider] - 1-2 days Time of Disposition: 16:48
[2019-10-22 15:53] LABS: Basophils # (A) 0.1 k/uL (0-0.2); Basophils % (A) 1 %; Eosinophils # (A) 0.1 k/uL (0-0.7); Eosinophils % (A) 1 %; HCT 38.1 % (39.0-53.0); Lymphocytes # (A) 0.6 k/uL (1.0-4.8); Lymphocytes % (A) 6 %; MCH 31.5 pg (25.0-35.0); MCHC 34.2 g/dL (31.0-37.0); MCV 92.1 fL (80.0-100.0); Mean Platelet Volume 7.4; Monocytes # (A) 0.6 k/uL (0-1.0); Monocytes % (A) 6 %; Neutrophils # (A) 8.4 k/uL (1.3-7.7); Neutrophils % (A) 85 %; Platelet Count 191 k/uL (150-450); RBC 4.13 m/uL (4.30-5.90); RDW 13.1 % (11.5-15.5); WBC 9.9 k/uL (3.8-10.6)
[2019-10-22 16:03] LABS: ALT 28 U/L (4-49); AST 41 U/L (17-59); African American GFR (CKD) >90 (>60 ml/min/1.73 sqM); Albumin 4.3 g/dL (3.5-5.0); Alkaline Phosphatase 53 U/L (38-126); Anion Gap 9 mmol/L; Blood Urea Nitrogen 5 mg/dL (9-20); Carbon Dioxide 22 mmol/L (22-30); Chloride 102 mmol/L (98-107); Glucose 103 mg/dL (74-99); Non-African American GFR(CKD) >90 (>60 ml/min/1.73 sqM); Potassium 3.5 mmol/L (3.5-5.1); Sodium 133 mmol/L (137-145); Total Bilirubin 2.4 mg/dL (0.2-1.3); Total Protein 6.9 g/dL (6.3-8.2)
[2019-10-22 16:07] LABS: Partial Thromboplastin Time 27.7 sec (22.0-30.0); Prothrombin Time 10.6 sec (9.0-12.0)
[2019-10-22] MEDS ORDERED: SODIUM CHLORIDE 0.9% 1,000 ML IV ONE (16:49)
[2019-10-22] MEDS ORDERED: ACETAMINOPHEN TAB 325 MG TAB PO PRN (19:13)
[2019-10-22] MEDS ORDERED: ONDANSETRON 4 MG/2 ML VIAL IVP PRN (19:14)
[2019-10-22] MEDS: PANTOPRAZOLE 40 MG/10 ML VIAL IVP SCH (19:30)
[2019-10-22] MEDS: TAMSULOSIN 0.4 MG CAP.ER.24H PO SCH (21:00)
[2019-10-22] MEDS ORDERED: LISINOPRIL 20 MG TAB PO SCH (21:00)
[2019-10-22 23:47] LABS: Basophils % (A) 1 %; Eosinophils # (A) 0.2 k/uL (0-0.7); Eosinophils % (A) 3 %; HCT 39.7 % (39.0-53.0); Lymphocytes # (A) 1.3 k/uL (1.0-4.8); Lymphocytes % (A) 18 %; MCH 30.9 pg (25.0-35.0); MCHC 32.8 g/dL (31.0-37.0); Mean Platelet Volume 7.3; Monocytes # (A) 0.5 k/uL (0-1.0); Monocytes % (A) 7 %; Neutrophils # (A) 5.1 k/uL (1.3-7.7); Neutrophils % (A) 69 %; Platelet Count 195 k/uL (150-450); RBC 4.22 m/uL (4.30-5.90); RDW 13.3 % (11.5-15.5); WBC 7.3 k/uL (3.8-10.6)
--- NOTE | 2019-10-22 23:54 | P.HPIM ---
History of Present Illness H&P Date: 10/22/19 Chief Complaint: Rectal bleeding Patient is a 53-year-old male with a known history of hypertension, GERD, anxiety/depression, schizophrenia and history of heavy alcohol use currently in remission presents to ER with complaints of rectal bleeding which he noticed this morning. Patient states that he did have bright red blood along with his bowel movement. Denies any complaints of abdominal pain or rectal pain. Patient says that he was constipated recently and he dehydrated bowel movement otherwise yesterday. Patient also had small bowel 1 today. Denies any fever or chills. Denied any trauma. Denied any complaints of chest pain or shortness of breath. No fever no chills. No cough or sputum production. Laboratory data showed WBC 9.9, hemoglobin 13.0 and platelets 191, sodium 133, potassium 3.5, BUN 5 and creatinine 0.55 and total bilirubin is 2.4 Patient is referred he did have colonoscopy several years ago by Dr. Collins and was told he he had diverticulosis but patient is not sure. Review of Systems Constitutional: Patient denies any fever or chills . No generalized weakness or weight loss. Abdomen: Patient denied nausea vomiting and diarrhea and abdominal pain.Rectal bleeding. Cardiovascular: Patient denies any chest pain or short of breath no palpitations. Respiratory: patient denied any cough is from production. No shortness of breath Neurologic: Patient denied any numbness or tingling headache. Musculoskeletal: Patient denies any complaints of joint swelling or deformity. Skin: Negative Psychiatric: Negative Endocrine: No heat or cold intolerance. No recent weight gain. Genitourinary: No dysuria or hematuria. All other 14 point ROS negative except the above Past Medical History Past Medical History: GERD/Reflux, Hypertension Additional Past Medical History / Comment(s): VARICOSE VEINS. History of Any Multi-Drug Resistant Organisms: None Reported Past Surgical History: No Surgical Hx Reported Additional Past Surgical History / Comment(s): TOOTH EXTRACTIONS Past Anesthesia/Blood Transfusion Reactions: No Reported Reaction Additional Past Anesthesia/Blood Transfusion Reaction / Comment(s): Never had Past Psychological History: Anxiety, Depression, Schizophrenia Additional Psychological History / Comment(s): MAJOR DEPRSSIVE DISORDER/MOOD DISORDER/PSYCHOSIS/SCHIZOPHRENIA"AUDITORY HALLUCINATIONS" FEEELS WELL MAINTAINED ON HIS MEDICATIONS DENIES ANY THOUGHTS OF WANTING TO HARM SELF. PT STATED LIVES BY HIMSELF, NO OUTSIDE SERVICES COME IN TO HELP. DOESN'T DRIVE-TAKES BUS, TAXI OR UNCLE WILL TAKE TO APPTS. [facility] COMES OUT on THURSDAYS Smoking Status: Never smoker Past Alcohol Use History: None Reported, Abuse, Heavy Additional Past Alcohol Use History / Comment(s): HX ETOH ABUSE LAST USED 11/20/18 Past Drug Use History: None Reported - Past Family History Father Family Medical History: Myocardial Infarction ([place]) Additional Family Medical History / Comment(s): AT AGE 58 FROM [place] Mother Family Medical History: Deep Vein Thrombosis (DVT), Hypertension Additional Family Medical History / Comment(s): PRIMARY PULMONARY HYPERTENSION Medications and Allergies Home Medications Medication Instructions Recorded Confirmed Type Atenolol [Tenormin] 50 mg PO DAILY 05/14/18 10/22/19 History Furosemide [Lasix] 20 mg PO BID-W/MEALS 05/14/18 10/22/19 History Omeprazole 20 mg PO Q48H 05/14/18 10/22/19 History Sodium Chloride Tab 1 gm PO BID 05/14/18 10/22/19 History Tamsulosin [Flomax] 0.4 mg PO BID 01/22/19 10/22/19 History ARIPiprazole IM SYRINGE [Abilify 400 mg IM Q28D 10/22/19 10/22/19 History Maintena Syringe] ARIPiprazole [Abilify] 20 mg PO DAILY 10/22/19 10/22/19 History Benztropine Mesylate [Cogentin] 2 mg PO BID PRN 10/22/19 10/22/19 History Cholecalciferol [Vitamin D3 (25 5,000 unit PO DAILY 10/22/19 10/22/19 History Mcg = 1000 Iu)] Fluticasone Nasal [place] [Flonase 1 spray EA NOSTRIL DAILY 10/22/19 10/22/19 History Nasal [place]] Lisinopril 30 mg PO HS 10/22/19 10/22/19 History Potassium Chloride ER [K-Dur 10] 10 meq PO DAILY 10/22/19 10/22/19 History Topiramate 50 mg PO DAILY 10/22/19 10/22/19 History Allergies Allergy/AdvReac Type Severity Reaction Status Date / Time No Known Allergies Allergy Verified 10/22/19 20:42 Physical Exam Vitals: Vital Signs Temp Pulse Pulse Resp BP BP Pulse Ox 10/22/19 19:35 98.7 F 76 17 156/96 96 10/22/19 17:59 98.9 F 71 14 135/81 97 10/22/19 17:30 92 11 L 169/100 98 10/22/19 17:00 93 17 156/104 98 10/22/19 16:30 72 22 160/104 97 10/22/19 16:00 81 18 157/106 97 10/22/19 15:30 97 14 145/95 98 10/22/19 14:56 98.4 F 107 H 18 136/90 Intake and Output 10/22/19 10/22/19 10/23/19 14:59 22:59 06:59 Other: Voiding Method Toilet # Voids 1 1 Weight 81.647 kg 81.647 kg PHYSICAL EXAMINATION: Patient is lying in the bed comfortably, no acute distress, awake alert and oriented.. HEENT: Normocephalic. Neck is supple. Pupils reactive. Nostrils clear. Oral cavity is moist. Ears reveal no drainage. Neck reveals no JVD, carotid bruits, or thyromegaly. CHEST EXAMINATION: Trachea is central. Symmetrical expansion. Lung hurtado clear to auscultation and percussion. CARDIAC: Normal S1, S2 with no gallops. No murmurs ABDOMEN: Soft. Bowel sounds normal. No organomegaly. No abdominal bruits. Extremities: reveal no edema. No clubbing or cyanosis Neurologically awake, alert, oriented x3 with well-coordinated movements. No focal deficits noted Skin: No rash or skin lesions. Psychiatric: Coperative. Nonsuicidal, Flat affect. Musculoskeletal: No joint swelling or deformity. Normal range of motion. Results CBC & Chem 7: 10/22/19 23:18 10/22/19 15:18 Labs: Abnormal Lab Results - Last 24 Hours (Table) 10/22/19 10/22/19 Range/Units 15:18 15:18 RBC 4.13 L (4.30-5.90) m/uL Hct 38.1 L (39.0-53.0) % Neutrophils # 8.4 H (1.3-7.7) k/uL Lymphocytes # 0.6 L (1.0-4.8) k/uL Sodium 133 L (137-145) mmol/L BUN 5 L (9-20) mg/dL Creatinine 0.55 L (0.66-1.25) mg/dL Glucose 103 H (74-99) mg/dL Total Bilirubin 2.4 H (0.2-1.3) mg/dL Thrombosis Risk Factor Assmnt - DVT/VTE Prophylaxis DVT/VTE Prophylaxis: Mechanical Prophylaxis ordered - Choose All That Apply Each Factor Represents 1 point: Age 41-60 years Each Risk Factor Represents 3 Points: Family history of DVT/PE Thrombosis Risk Factor Assessment Total Risk Factor Score: 4 Thrombosis Risk Factor Assessment Level: Moderate Risk Assessment and Plan Assessment: Rectal bleeding likely hemorrhoidal internal. Questionable history of diverticulosis Uncontrolled hypertension Anxiety/depression, schizophrenia DVT prophylaxis with SCDs Plan: Patient will be continued on IV hydration with normal saline. Monitor H&H. Nothing by mouth. Currently at home blood pressure medications and GI was consulted. Further recommendations based on clinical course. Time with Patient: Greater than 30
[2019-10-23 07:29] VITALS: BP 154/91; PULSE 69; RESP 16; TEMP 98.4
[2019-10-23] MEDS: TAMSULOSIN 0.4 MG CAP.ER.24H PO SCH (08:23)
[2019-10-23] MEDS: PANTOPRAZOLE 40 MG/10 ML VIAL IVP SCH (08:24)
[2019-10-23 08:57] LABS: Basophils % (A) 0 %; Eosinophils # (A) 0.1 k/uL (0-0.7); Eosinophils % (A) 2 %; HCT 40.4 % (39.0-53.0); HGB 13.2 gm/dL (13.0-17.5); Lymphocytes # (A) 0.8 k/uL (1.0-4.8); Lymphocytes % (A) 12 %; MCH 30.9 pg (25.0-35.0); MCHC 32.7 g/dL (31.0-37.0); MCV 94.3 fL (80.0-100.0); Mean Platelet Volume 7.6; Monocytes # (A) 0.5 k/uL (0-1.0); Monocytes % (A) 7 %; Neutrophils # (A) 4.9 k/uL (1.3-7.7); Neutrophils % (A) 76 %; Platelet Count 189 k/uL (150-450); RBC 4.29 m/uL (4.30-5.90); RDW 13.4 % (11.5-15.5); WBC 6.4 k/uL (3.8-10.6)
[2019-10-23] MEDS ORDERED: ATENOLOL 50 MG TAB PO SCH (09:00)
[2019-10-23 09:02] LABS: ALT 28 U/L (4-49); AST 35 U/L (17-59); African American GFR (CKD) >90 (>60 ml/min/1.73 sqM); Albumin 3.8 g/dL (3.5-5.0); Alkaline Phosphatase 44 U/L (38-126); Anion Gap 8 mmol/L; Blood Urea Nitrogen 3 mg/dL (9-20); Calcium 8.6 mg/dL (8.4-10.2); Carbon Dioxide 24 mmol/L (22-30); Chloride 107 mmol/L (98-107); Glucose 88 mg/dL (74-99); Non-African American GFR(CKD) >90 (>60 ml/min/1.73 sqM); Potassium 3.9 mmol/L (3.5-5.1); Sodium 139 mmol/L (137-145); Total Bilirubin 2.3 mg/dL (0.2-1.3); Total Protein 6.5 g/dL (6.3-8.2)
--- NOTE | 2019-10-23 16:11 | P.CONS ---
History of Present Illness - Reason for Consult Consult date: 10/23/19 Rectal hemorrhage Requesting physician: Percy Harrison - Chief Complaint Rectal bleed - History of Present Illness 53-year-old male with a medical history significant for hypertension, GERD, anxiety/depression, schizophrenia, and previous alcohol abuse who presented to the emergency department with reports of blood per rectum. The patient reports noting blood per rectum yesterday. Multiple episodes. He also reports some blood on his underwear. No further bleeding since he came to the hospital with the patient reporting a normal brown bowel movement today. No associated abdominal pain. No history of peptic ulcer disease. Denies any NSAID use. No nausea or vomiting. Laboratory evaluation significant for WBC 6.4, hemoglobin 13.2, platelet count 289,000, total bilirubin 2.3, alkaline phosphatase 44, AST 35 and ALTs 28. He has undergone multiple colonoscopies in the past with his last in 2019 significant for polypectomy and diverticulosis. Review of Systems REVIEW OF SYSTEMS: CONSTITUTIONAL: Denies any fevers, chills, weight change or fatigue. CARDIOVASCULAR: Denies any chest pain, palpitations high or low blood pressures RESPIRATORY: Denies any shortness of breath, hemoptysis or cough. GENITOURINARY: No dysuria or hematuria. MUSCULOSKELETAL: No weakness reported. SKIN: Denies any new rashes or lesions, jaundice or pallor. PSYCHIATRIC: Patient has a history of schizophrenia, anxiety and depression. NEUROLOGY: Denies headache, denies any new focal deficits. EARS/NOSE/THROAT: No recent hearing change, congestion, nasal discharge or sore throat. EYES: No pain in eyes, discharge or change in vision. GASTROINTESTINAL: As per HPI. Past Medical History Past Medical History: GERD/Reflux, Hypertension Additional Past Medical History / Comment(s): VARICOSE VEINS. History of Any Multi-Drug Resistant Organisms: None Reported Past Surgical History: No Surgical Hx Reported Additional Past Surgical History / Comment(s): TOOTH EXTRACTIONS Past Anesthesia/Blood Transfusion Reactions: No Reported Reaction Additional Past Anesthesia/Blood Transfusion Reaction / Comm: Never had Past Psychological History: Anxiety, Depression, Schizophrenia Additional Psychological History / Comment(s): MAJOR DEPRSSIVE DISORDER/MOOD DISORDER/PSYCHOSIS/SCHIZOPHRENIA"AUDITORY HALLUCINATIONS" FEEELS WELL MAINTAINED ON HIS MEDICATIONS DENIES ANY THOUGHTS OF WANTING TO HARM SELF. PT STATED LIVES BY HIMSELF, NO OUTSIDE SERVICES COME IN TO HELP. DOESN'T DRIVE-TAKES BUS, TAXI OR UNCLE WILL TAKE TO APPTS. [facility] COMES OUT on THURSDAYS Smoking Status: Never smoker Past Alcohol Use History: None Reported, Abuse, Heavy Additional Past Alcohol Use History / Comment(s): HX ETOH ABUSE LAST USED 11/20/18 Past Drug Use History: None Reported - Past Family History Father Family Medical History: Myocardial Infarction ([place]) Additional Family Medical History / Comment(s): AT AGE 58 FROM [place] Mother Family Medical History: Deep Vein Thrombosis (DVT), Hypertension Additional Family Medical History / Comment(s): PRIMARY PULMONARY HYPERTENSION Medications and Allergies Home Medications Medication Instructions Recorded Confirmed Type Atenolol [Tenormin] 50 mg PO DAILY 05/14/18 10/22/19 History Furosemide [Lasix] 20 mg PO BID-W/MEALS 05/14/18 10/22/19 History Omeprazole 20 mg PO Q48H 05/14/18 10/22/19 History Sodium Chloride Tab 1 gm PO BID 05/14/18 10/22/19 History Tamsulosin [Flomax] 0.4 mg PO BID 01/22/19 10/22/19 History ARIPiprazole IM SYRINGE [Abilify 400 mg IM Q28D 10/22/19 10/22/19 History Maintena Syringe] ARIPiprazole [Abilify] 20 mg PO DAILY 10/22/19 10/22/19 History Benztropine Mesylate [Cogentin] 2 mg PO BID PRN 10/22/19 10/22/19 History Cholecalciferol [Vitamin D3 (25 5,000 unit PO DAILY 10/22/19 10/22/19 History Mcg = 1000 Iu)] Fluticasone Nasal [place] [Flonase 1 spray EA NOSTRIL DAILY 10/22/19 10/22/19 History Nasal [place]] Lisinopril 30 mg PO HS 10/22/19 10/22/19 History Potassium Chloride ER [K-Dur 10] 10 meq PO DAILY 10/22/19 10/22/19 History Topiramate 50 mg PO DAILY 10/22/19 10/22/19 History Hydrocortisone Suppository 25 mg RECTAL BID PRN #7 supp 10/23/19 Rx [Anusol-Hc] Allergies Allergy/AdvReac Type Severity Reaction Status Date / Time No Known Allergies Allergy Verified 10/22/19 20:42 Physical Exam Vitals: Vital Signs Temp Pulse Pulse Resp BP BP Pulse Ox 10/23/19 08:00 16 10/23/19 07:00 98.4 F 69 16 154/91 98 10/23/19 03:23 98.2 F 81 18 152/90 97 10/22/19 19:35 98.7 F 76 17 156/96 96 10/22/19 17:59 98.9 F 71 14 135/81 97 10/22/19 17:30 92 11 L 169/100 98 10/22/19 17:00 93 17 156/104 98 10/22/19 16:30 72 22 160/104 97 10/22/19 16:00 81 18 157/106 97 10/22/19 15:30 97 14 145/95 98 10/22/19 14:56 98.4 F 107 H 18 136/90 Intake and Output 10/22/19 10/23/19 10/23/19 22:59 06:59 14:59 Other: Voiding Method Toilet Toilet # Voids 1 0 Weight 81.647 kg On physical examination, patient appears comfortable in no apparent distress. HEAD: Normocephalic, atraumatic. EYES: No scleral icterus. No conjunctival injection. MOUTH: No lesions, tongue midline. NECK: Trachea midline, no gross abnormalities. CHEST: Clear to auscultation with no wheezing or rhonchi appreciated. HEART: Regular rate and rhythm. ABDOMEN: Soft, nontender to palpation. Bowel sounds are positive. No organomegaly. No guarding or rigidity. EXTREMITIES: No pedal edema. SKIN: No rashes, no jaundice. NEUROLOGIC: Alert and oriented x3. No focal deficits. Results CBC & Chem 7: 10/23/19 08:03 10/23/19 08:03 Labs: Abnormal Lab Results - Last 24 Hours (Table) 10/22/19 10/22/19 10/22/19 Range/Units 15:18 15:18 23:18 RBC 4.13 L 4.22 L (4.30-5.90) m/uL Hct 38.1 L (39.0-53.0) % Neutrophils # 8.4 H (1.3-7.7) k/uL Lymphocytes # 0.6 L (1.0-4.8) k/uL Sodium 133 L (137-145) mmol/L BUN 5 L (9-20) mg/dL Creatinine 0.55 L (0.66-1.25) mg/dL Glucose 103 H (74-99) mg/dL Total Bilirubin 2.4 H (0.2-1.3) mg/dL Assessment and Plan (1) Rectal bleeding Narrative/Plan: 53-year-old male with multiple medical comorbidities presenting to the hospital with painless bright red blood per rectum yesterday. Multiple episodes with the patient denying any associated abdominal pain. No history of peptic ulcer disease or NSAID use. Last colonoscopy in 2019 significant for polypectomy and diverticulosis. Hemoglobin has remained stable at 13.2 with patient reporting a normal nonbloody brown bowel movement today. Suspicion is for hemorrhoidal disease, less likely diverticular given stability of hemoglobin, AVM or other etiology. Current Visit: Yes Status: Acute Code(s): K62.5 - HEMORRHAGE OF ANUS AND RECTUM SNOMED Code(s): 07359765 (2) Diverticulosis Current Visit: Yes Status: Acute Code(s): K57.90 - DVRTCLOS OF INTEST, PART UNSP, W/O PERF OR ABSCESS W/O BLEED SNOMED Code(s): 868236474 (3) History of colon polyps Current Visit: Yes Status: Acute Code(s): Z86.010 - PERSONAL HISTORY OF COLONIC POLYPS SNOMED Code(s): 245606209 Plan: Supportive care Okay for diet Anusol suppository ordered Local hemorrhoidal care discussed No plans for endoscopic evaluation at this time Thanks for allowing us to participate in the care of the patient
[2019-10-23] MEDS ORDERED: HYDROCORTISONE SUPPOSITORY 25 MG SUPP RECTAL SCH (21:00)
== END 2019-10-23 16:44 | disposition home or self-care (01) ==
LOC: EC 14:54 → 4SSUR 16:49
PROVIDERS: ADMIT Internal Medicine; ATTEND Internal Medicine
DX: K57.91 Diverticulosis of intestine, part unspecified, without perforation or abscess with bleeding (principal); I10 Essential (primary) hypertension; F41.9 Anxiety disorder, unspecified; F32.9 Major depressive disorder, single episode, unspecified; F20.9 Schizophrenia, unspecified; K21.9 Gastro-esophageal reflux disease without esophagitis; I83.90 Asymptomatic varicose veins of unspecified lower extremity; F39 Unspecified mood [affective] disorder; Z03.818 Encounter for observation for suspected exposure to other biological agents ruled out; Z79.899 Other long term (current) drug therapy; Z98.890 Other specified postprocedural states; Z87.19 Personal history of other diseases of the digestive system; Z86.010 Personal history of colon polyps; Z82.49 Family history of ischemic heart disease and other diseases of the circulatory system
CPT/HCPCS: 96376; 96361 ×3; 96374; 99285; 36415; 86900; 86901; 80053 ×2; 85025 ×2; 85610; 85730; 86850; G0378 ×2; U0003; C9113 ×2

== ENCOUNTER 2019-10-26 15:33 | Inpatient (IN) | payer MEDICARE, MEDICAID ==
--- NOTE | 2019-10-26 15:40 | ED ---
Psych HPI - General Stated Complaint: mental health Time Seen by Provider: 10/26/19 15:36 Source: patient, EMS, RN notes reviewed Mode of arrival: EMS Limitations: no limitations - History of Present Illness Initial Comments: 53-year-old male presents emergency department for psychiatric evaluation. Patient was brought to emergency department via EMS for evaluation. 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 Patient denies any suicidal or homicidal denies any drug or alcohol use. Patient states that he was with his sister who did not agree with something so she called the convenience store clerk. Patient offers no other complaints. No physical complaints. - Related Data Home Medications Medication Instructions Recorded Confirmed Atenolol [Tenormin] 50 mg PO DAILY 05/14/18 10/26/19 Furosemide [Lasix] 20 mg PO BID-W/MEALS 05/14/18 10/26/19 Omeprazole 20 mg PO Q48H 05/14/18 10/26/19 Tamsulosin [Flomax] 0.4 mg PO BID 01/22/19 10/26/19 ARIPiprazole IM SYRINGE [Abilify 400 mg IM Q28D 10/22/19 10/26/19 Maintena Syringe] ARIPiprazole [Abilify] 20 mg PO DAILY 10/22/19 10/26/19 Benztropine Mesylate [Cogentin] 2 mg PO BID PRN 10/22/19 10/26/19 Lisinopril 30 mg PO HS 10/22/19 10/26/19 Potassium Chloride ER [K-Dur 10] 10 meq PO DAILY 10/22/19 10/26/19 Topiramate 50 mg PO DAILY 10/22/19 10/26/19 Allergies Allergy/AdvReac Type Severity Reaction Status Date / Time No Known Allergies Allergy Verified 10/22/19 20:42 Review of Systems ROS Statement: Those systems with pertinent positive or pertinent negative responses have been documented in the HPI. ROS Other: All systems not noted in ROS Statement are negative. Past Medical History Past Medical History: GERD/Reflux, Hypertension Additional Past Medical History / Comment(s): VARICOSE VEINS. History of Any Multi-Drug Resistant Organisms: None Reported Past Surgical History: No Surgical Hx Reported Additional Past Surgical History / Comment(s): TOOTH EXTRACTIONS Past Anesthesia/Blood Transfusion Reactions: No Reported Reaction Additional Past Anesthesia/Blood Transfusion Reaction / Comment(s): Never had Past Psychological History: Anxiety, Depression, Schizophrenia Additional Psychological History / Comment(s): MAJOR DEPRSSIVE DISORDER/MOOD DISORDER/PSYCHOSIS/SCHIZOPHRENIA"AUDITORY HALLUCINATIONS" FEEELS WELL MAINTAINED ON HIS MEDICATIONS DENIES ANY THOUGHTS OF WANTING TO HARM SELF. PT STATED LIVES BY HIMSELF, NO OUTSIDE SERVICES COME IN TO HELP. DOESN'T DRIVE-TAKES BUS, TAXI OR UNCLE WILL TAKE TO APPTS. [facility] COMES OUT on THURSDAYS Smoking Status: Never smoker Past Alcohol Use History: None Reported, Abuse, Heavy Additional Past Alcohol Use History / Comment(s): HX ETOH ABUSE LAST USED 11/20/18 Past Drug Use History: None Reported - Past Family History Father Family Medical History: Myocardial Infarction ([place]) Additional Family Medical History / Comment(s): AT AGE 58 FROM [place] Mother Family Medical History: Deep Vein Thrombosis (DVT), Hypertension Additional Family Medical History / Comment(s): PRIMARY PULMONARY HYPERTENSION General Exam General appearance: alert, in no apparent distress Head exam: Present: atraumatic, normocephalic, normal inspection Eye exam: Present: normal appearance, PERRL, EOMI. Absent: scleral icterus, conjunctival injection, periorbital swelling ENT exam: Present: normal exam, normal oropharynx, mucous membranes moist Neck exam: Present: normal inspection, full ROM. Absent: tenderness, meningismus, lymphadenopathy Respiratory exam: Present: normal lung sounds bilaterally. Absent: respiratory distress, wheezes, rales, rhonchi, stridor Cardiovascular Exam: Present: regular rate, normal rhythm, normal heart sounds. Absent: systolic murmur, diastolic murmur, rubs, gallop, clicks GI/Abdominal exam: Present: soft, normal bowel sounds. Absent: distended, tenderness, guarding, rebound, rigid Neurological exam: Present: alert, oriented X3, CN II-XII intact, reflexes normal. Absent: motor sensory deficit Psychiatric exam: Present: flat affect Skin exam: Present: warm, dry, intact, normal color. Absent: rash Course Vital Signs 10/26/19 15:35 Temperature 98.7 F Pulse Rate 80 Respiratory 18 Rate Blood Pressure 127/93 O2 Sat by Pulse 99 Oximetry Medical Decision Making - Medical Decision Making Patient reevaluated and will be admitted for further psychiatric treatment. Disposition Clinical Impression: Acute psychosis Disposition: TRANSFER TO PSYCH HOSP/UNIT Referrals: [facility] [Primary Care Provider] - 1-2 days
[2019-10-26] MEDS ORDERED: BENZTROPINE MESYLATE 1 MG TAB PO PRN (17:57)
[2019-10-26] MEDS ORDERED: MAGNESIUM HYDROXIDE 2,400 MG/10 ML CUP PO PRN (17:59)
[2019-10-26] MEDS ORDERED: LORazepam 1 MG TAB PO PRN (17:59)
[2019-10-26] MEDS ORDERED: ACETAMINOPHEN TAB 325 MG TAB PO PRN (17:59)
[2019-10-26] MEDS ORDERED: ZIPRASIDONE 20 MG VIAL IM PRN (17:59)
[2019-10-26] MEDS ORDERED: LORazepam 2 MG/ML INJ IM PRN (18:01)
[2019-10-26 18:22] LABS: Amphetamine Screen,Urine Not Detected (NotDetected); Barbiturate Screen,Urine Not Detected (NotDetected); Benzodiazepines Screen,Urine Not Detected (NotDetected); Cocaine Screen,Urine Not Detected (NotDetected); Methadone Screen, Urine Not Detected (NotDetected); Opiate Screen,Urine Not Detected (NotDetected); Oxycodone Screen, Urine Not Detected (NotDetected); Phencyclidine Screen,Urine Not Detected (NotDetected); Tricyclic Antidepressant,Urine Not Detected (NotDetected); Urn Cannabinoid Scrn Not Detected (NotDetected)
[2019-10-26 19:01] LABS: Appearance,Urine Clear (Clear); Bilirubin,Urine Negative (Negative); Blood,Urine Negative (Negative); Color,Urine Colorless; Glucose,Urine (UA) Negative (Negative); Ketones,Urine Negative (Negative); Leukocyte Esterase,Urine Negative (Negative); Nitrite,Urine Negative (Negative); Protein,Urine Negative (Negative); Specific Gravity,Urine 1.002 (1.001-1.035); Urobilinogen,Urine <2.0 mg/dL (<2.0)
[2019-10-26] MEDS: TAMSULOSIN 0.4 MG CAP.ER.24H PO SCH (20:59)
[2019-10-26] MEDS: PANTOPRAZOLE 40 MG TABLET PO SCH (20:59)
[2019-10-26] MEDS: LISINOPRIL 10 MG TAB PO SCH (20:59)
--- NOTE | 2019-10-26 23:00 | P.HPIM ---
History of Present Illness H&P Date: 10/26/19 The patient was seen and examined in the mental health unit at 9 PM on 10/25 Patient is a 53-year-old male with a PMH of hypertension, GERD, depression, schizophrenia, and anxiety who was brought in by EMS after a [facility] order. The patient was subsequently admitted to the mental health unit where he was seen and evaluated earlier today. The patient had reportedly had an argument with his sister who had activated the EMS. The patient notes being upset about the fact that he is in the mental health unit though otherwise denied any additional complaints. Despite being on antihypertensives at home, the patient had reported no medical history or complaints. He denied any complaints including chest pain, shortness of fever, chills, nausea, vomiting, dizziness, or diarrhea. Urine toxicology and UA were unremarkable in the emergency room. Review of Systems Pertinent positives and negatives as discussed in HPI, a complete review of systems was performed and all other systems are negative. Past Medical History Past Medical History: GERD/Reflux, Hypertension Additional Past Medical History / Comment(s): VARICOSE VEINS. History of Any Multi-Drug Resistant Organisms: None Reported Past Surgical History: No Surgical Hx Reported Additional Past Surgical History / Comment(s): TOOTH EXTRACTIONS Past Anesthesia/Blood Transfusion Reactions: No Reported Reaction Additional Past Anesthesia/Blood Transfusion Reaction / Comment(s): Never had Past Psychological History: Anxiety, Depression, Schizophrenia Additional Psychological History / Comment(s): MAJOR DEPRSSIVE DISORDER/MOOD DISORDER/PSYCHOSIS/SCHIZOPHRENIA"AUDITORY HALLUCINATIONS" FEEELS WELL MAINTAINED ON HIS MEDICATIONS DENIES ANY THOUGHTS OF WANTING TO HARM SELF. PT STATED LIVES BY HIMSELF, NO OUTSIDE SERVICES COME IN TO HELP. DOESN'T DRIVE-TAKES BUS, TAXI OR UNCLE WILL TAKE TO APPTS. [facility] COMES OUT on THURSDAYS Smoking Status: Never smoker Past Alcohol Use History: None Reported, Abuse, Heavy Additional Past Alcohol Use History / Comment(s): HX ETOH ABUSE LAST USED 11/20/18 Past Drug Use History: None Reported - Past Family History Father Family Medical History: Myocardial Infarction ([place]) Additional Family Medical History / Comment(s): AT AGE 58 FROM [place] Mother Family Medical History: Deep Vein Thrombosis (DVT), Hypertension Additional Family Medical History / Comment(s): PRIMARY PULMONARY HYPERTENSION Medications and Allergies Home Medications Medication Instructions Recorded Confirmed Type Atenolol [Tenormin] 50 mg PO DAILY 05/14/18 10/26/19 History Furosemide [Lasix] 20 mg PO BID-W/MEALS 05/14/18 10/26/19 History Omeprazole 20 mg PO Q48H 05/14/18 10/26/19 History Tamsulosin [Flomax] 0.4 mg PO BID 01/22/19 10/26/19 History ARIPiprazole IM SYRINGE [Abilify 400 mg IM Q28D 10/22/19 10/26/19 History Maintena Syringe] ARIPiprazole [Abilify] 20 mg PO DAILY 10/22/19 10/26/19 History Benztropine Mesylate [Cogentin] 2 mg PO BID PRN 10/22/19 10/26/19 History Lisinopril 30 mg PO HS 10/22/19 10/26/19 History Potassium Chloride ER [K-Dur 10] 10 meq PO DAILY 10/22/19 10/26/19 History Topiramate 50 mg PO DAILY 10/22/19 10/26/19 History Allergies Allergy/AdvReac Type Severity Reaction Status Date / Time No Known Allergies Allergy Verified 10/22/19 20:42 Physical Exam Vitals: Vital Signs Temp Pulse Pulse Resp BP BP Pulse Ox 10/26/19 19:48 97.0 F L 60 18 145/99 100 10/26/19 19:00 82 18 122/76 98 10/26/19 15:35 98.7 F 80 18 127/93 99 Intake and Output 10/26/19 10/26/19 10/26/19 06:59 14:59 22:59 Other: Weight 86.636 kg General: non toxic, no distress, appears at stated age, obese Derm: no unusual rashes/lesions no unusual ecchymoses, warm, dry Head: atraumatic, normocephalic, symmetric Eyes: EOMI, no lid lag, anicteric sclera, pupils equal round reactive to light ENT: Nose and ears atraumatic, no thrush, no pharyngeal erythema Neck: No thyromegaly, no cervical lymphadenopathy, trachea midline, supple Mouth: no lip lesion, mucus membranes moist Cardiovascular: S1S2 reg, no murmur, positive posterior tibial pulse bilateral, no edema, capillary refill less than 2 seconds Lungs: CTA bilateral, no rhonchi, no rales , no accessory muscle use Abdominal: soft, nontender to palpation, no guarding, no appreciable organomegaly, normal bowel sounds Ext: no gross muscle atrophy, muscle strength 5 out of 5 in all 4 extremities grossly, no contractures, Neuro: CN II-XI grossly intact, light touch intact all 4 extremities, finger to nose within normal limits, Psych: Alert, oriented, flat affect Assessment and Plan Plan: Hypertension -Continue with home meds History of schizophrenia, depression, anxiety -As per psychiatry Thank you for allowing us to participate in the care of this patient. We will follow peripherally. Do not hesitate to contact us with questions. Someone can be reached from the [facility] hospitalist group at all hours of the day at [phone].
[2019-10-27 09:02] LABS: Basophils % (A) 1 %; Eosinophils # (A) 0.1 k/uL (0-0.7); Eosinophils % (A) 2 %; HCT 41.3 % (39.0-53.0); HGB 13.4 gm/dL (13.0-17.5); Lymphocytes # (A) 0.9 k/uL (1.0-4.8); Lymphocytes % (A) 20 %; MCH 30.8 pg (25.0-35.0); MCHC 32.4 g/dL (31.0-37.0); MCV 95.1 fL (80.0-100.0); Mean Platelet Volume 7.6; Monocytes # (A) 0.3 k/uL (0-1.0); Monocytes % (A) 7 %; Neutrophils # (A) 3.2 k/uL (1.3-7.7); Neutrophils % (A) 68 %; Platelet Count 222 k/uL (150-450); RBC 4.34 m/uL (4.30-5.90); RDW 13.5 % (11.5-15.5); WBC 4.7 k/uL (3.8-10.6)
[2019-10-27] MEDS: FUROSEMIDE 20 MG TAB PO SCH ×2 (09:07→18:52)
[2019-10-27] MEDS: TAMSULOSIN 0.4 MG CAP.ER.24H PO SCH ×2 (09:08→20:56)
[2019-10-27] MEDS: POTASSIUM CHLORIDE ER 10 MEQ TAB.ER.PRT PO SCH (09:08)
[2019-10-27] MEDS: ATENOLOL 50 MG TAB PO SCH (09:08)
[2019-10-27] MEDS: TOPIRAMATE 25 MG TAB PO SCH (09:08)
[2019-10-27 09:26] LABS: ALT 25 U/L (4-49); AST 30 U/L (17-59); African American GFR (CKD) >90 (>60 ml/min/1.73 sqM); Albumin 4.2 g/dL (3.5-5.0); Alkaline Phosphatase 45 U/L (38-126); Anion Gap 11 mmol/L; Blood Urea Nitrogen 6 mg/dL (9-20); Calcium 9.3 mg/dL (8.4-10.2); Carbon Dioxide 26 mmol/L (22-30); Chloride 105 mmol/L (98-107); Cholesterol 90 mg/dL (<200); Glucose 104 mg/dL (74-99); HDL Cholesterol 67 mg/dL (40-60); LDL Cholesterol,Calculated 17 mg/dL (0-99); Non-African American GFR(CKD) >90 (>60 ml/min/1.73 sqM); Potassium 3.7 mmol/L (3.5-5.1); Sodium 142 mmol/L (137-145); Total Bilirubin 1.3 mg/dL (0.2-1.3); Triglycerides 30 mg/dL (<150)
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
[2019-10-27 18:11] LABS: Hemoglobin A1C 4.7 % (4.0-6.0)
[2019-10-27] MEDS: LISINOPRIL 10 MG TAB PO SCH (20:56)
[2019-10-28] MEDS: POTASSIUM CHLORIDE ER 10 MEQ TAB.ER.PRT PO SCH (08:35)
[2019-10-28] MEDS: FUROSEMIDE 20 MG TAB PO SCH ×2 (08:35→18:30)
[2019-10-28] MEDS: TAMSULOSIN 0.4 MG CAP.ER.24H PO SCH ×2 (08:35→19:57)
[2019-10-28] MEDS: TOPIRAMATE 25 MG TAB PO SCH (08:35)
[2019-10-28] MEDS: ATENOLOL 50 MG TAB PO SCH (08:35)
[2019-10-28] MEDS ORDERED: ARIPiprazole IM 400 MG VIAL (NO COST) IM SCH (10:15)
[2019-10-28] MEDS ORDERED: ARIPiprazole IM SYRINGE 400 MG (NO CHARGE) IM SCH ×2 (10:15→11:15)
--- NOTE | 2019-10-28 13:16 | P.PN ---
Progress Note - Text Progress Note Date: 10/28/19 Clinical Problems: Schizophrenia multiple episodes currently in acute episode, alcohol use disorder moderate Interim history: I reviewed the medical record, interviewed the patient and discuss his treatment and treatment plan during team meeting. He requested a physician's order to be allowed to drink Coca-Cola that a friend brought to the unit. He was angry when I informed him of the unit policy regarding no outside food or drink. He also asked to continue "salt tablets" that he alleged were prescribed by a "outside doctor." By a explained there is no reason to prescribe salt tablets because his serum sodium is normal and the consulting hospitalist did not recommend the supplement. I informed of my recommendation regarding another trial of clozapine. He would not consent and alleged that his current medication, Abilify, is "miraculous." He has been attending most therapeutic groups and activities. He slept 6 hours last night but he had difficulty falling asleep and neuro psych sales specialist awakening. Mental status exam: He presented as a neatly groomed and casually dressed 53-year-old male who is irritable and demanding. He made eye contact and attended the interview. He had a distressed facial expression. He showed no abnormality of psychomotor activity. His speech was spontaneous and consistent with his mood. His affect was irritable but not inappropriate. He denied suicidal ideation or wishes. He did not express clear ideas reference, paranoid ideation or delusions. He ruminated over his Coca-Cola need for salt tablets. His thinking was concrete and associations were not fully logical goal-directed. He denied hallucinations but again was responding to internal stimuli during our interview. Assessment: He is irritable, demanding and continued to experiencing auditory hallucinations. Overall, his clinical condition is unchanged from admission. He is angry that his demands were not met and is not consenting to a clozapine trial. Plan: Continue inpatient treatment. Safety precautions. Continue Abilify 20 mg daily. Administer Abilify injection 400 mg today. Continued discussion of clozapine. Note that although I prefer having his consent for a clozapine trial he is on a one year involuntary treatment order. Encouraged continued participation in therapeutic groups and activities. Evaluate clinical status response to treatment daily basis.
[2019-10-28] MEDS: PANTOPRAZOLE 40 MG TABLET PO SCH (18:31)
[2019-10-28] MEDS: LISINOPRIL 10 MG TAB PO SCH (19:57)
[2019-10-29] MEDS: TAMSULOSIN 0.4 MG CAP.ER.24H PO SCH ×2 (09:13→21:50)
[2019-10-29] MEDS: POTASSIUM CHLORIDE ER 10 MEQ TAB.ER.PRT PO SCH (09:13)
[2019-10-29] MEDS: TOPIRAMATE 25 MG TAB PO SCH (09:13)
[2019-10-29] MEDS: ATENOLOL 50 MG TAB PO SCH (09:13)
[2019-10-29] MEDS: FUROSEMIDE 20 MG TAB PO SCH ×2 (09:13→16:57)
[2019-10-29] MEDS: LISINOPRIL 10 MG TAB PO SCH (21:50)
[2019-10-30] MEDS: FUROSEMIDE 20 MG TAB PO SCH ×2 (08:50→17:02)
[2019-10-30] MEDS: TOPIRAMATE 25 MG TAB PO SCH (08:50)
[2019-10-30] MEDS: POTASSIUM CHLORIDE ER 10 MEQ TAB.ER.PRT PO SCH (08:50)
[2019-10-30] MEDS: TAMSULOSIN 0.4 MG CAP.ER.24H PO SCH ×2 (08:50→20:15)
[2019-10-30] MEDS: ATENOLOL 50 MG TAB PO SCH (08:50)
--- NOTE | 2019-10-30 13:16 | P.PN ---
Progress Note - Text Interval history: The patient is found in the hallway he follows me to an interview room. The patient has a history of schizophrenia and was recently admitted her acute symptoms of psychosis. He continues to comply with the oral Abilify. He describes auditory hallucinations that are heard from 4 AM to 10 PM every night, he indicates he has some concerns about his safety and he is trying to maintain an "awareness perimeter". He was able to sleep last night staff report he slept 6 hours. Appetite is stable. No reports of any behavioral disturbance. Mental status exam: The patient is a balding male appearing his stated age his hair short he is dressed in his own clothing eye contact is appropriate speech is fluent spontaneous nonpressured. Affect is blunted. He reports no suicidal or homicidal ideation intent or plan. He reports auditory hallucinations described as voices on speakers. He reports no visual h allucinations he describes some paranoid thinking in terms of safety. He demonstrates no verbal or physical aggressiveness he demonstrates no involuntary repetitive movements. Insight and judgment impaired. Plan: The patient will continue on his current psychotropic medication. We will monitor him for safety and encourage full participation in the milieu. Vital signs reviewed. He requires continued psychiatric hospitalization.
[2019-10-30] MEDS: PANTOPRAZOLE 40 MG TABLET PO SCH ×2 (18:11→20:15)
[2019-10-30] MEDS: LISINOPRIL 10 MG TAB PO SCH (20:15)
[2019-10-31] MEDS: TOPIRAMATE 25 MG TAB PO SCH (09:32)
[2019-10-31] MEDS: TAMSULOSIN 0.4 MG CAP.ER.24H PO SCH ×2 (09:32→21:03)
[2019-10-31] MEDS: POTASSIUM CHLORIDE ER 10 MEQ TAB.ER.PRT PO SCH (09:32)
[2019-10-31] MEDS: ATENOLOL 50 MG TAB PO SCH (09:32)
[2019-10-31] MEDS: FUROSEMIDE 20 MG TAB PO SCH ×2 (09:32→17:26)
--- NOTE | 2019-10-31 11:15 | P.PN ---
Progress Note - Text Interval history: The patient is found in his room pacing he follows me to an interview room. He indicates his mood is fine he states he's working on things. He indicates ongoing auditory hallucinations that are "expert, professional things". He states that he is fearful of using clozapine as it will erase his memory. Staff report he slept 6 hours he indicates he is eating meals. He has no particular questions or concerns for me today. He indicates that he would like to be discharged as soon as possible. Mental status exam: The patient is alert he is found pacing in his room he reluctantly follows me to an interview room. Hygiene grooming adequate, speech is fluent nonspontaneous but he does provide answers to questions. Speech is slow at times. He reports no suicidal or homicidal ideation intent or plan. He endorses ongoing auditory hallucinations and is somewhat vague in describing what they are saying. He states that he is experiencing no command auditory hallucinations "at this time". He demonstrates no verbal or physical aggressiveness he is demonstrating no involuntary repetitive movements. Affect is bland throughout the session with little reactivity. Plan: The patient will continue on his current psychotropic medications. We will monitor him for safety and encourage full participation in the milieu. Vital signs reviewed. He requires continued psychiatric hospitalization.
[2019-10-31] MEDS: LISINOPRIL 10 MG TAB PO SCH (21:03)
[2019-11-01] MEDS ORDERED: cloZAPine 25 MG TAB PO SCH (09:45)
[2019-11-01] MEDS: POTASSIUM CHLORIDE ER 10 MEQ TAB.ER.PRT PO SCH (09:51)
[2019-11-01] MEDS: ATENOLOL 50 MG TAB PO SCH (09:51)
[2019-11-01] MEDS: TOPIRAMATE 25 MG TAB PO SCH (09:51)
[2019-11-01] MEDS: TAMSULOSIN 0.4 MG CAP.ER.24H PO SCH ×2 (09:51→21:18)
[2019-11-01] MEDS: FUROSEMIDE 20 MG TAB PO SCH ×2 (09:51→17:20)
--- NOTE | 2019-11-01 11:25 | P.PN ---
Progress Note - Text Progress Note Date: 10/29/19 Clinical Problems: Schizophrenia multiple episodes currently in acute episode, alcohol use disorder moderate Interim history: I reviewed the medical record, interviewed the patient and discuss his treatment and treatment plan during team meeting. He requested a prescription for a "salt tablet" that was prescribed by primary care provider. He alleged that he can tell that his sodium is low. I explained that his serum sodium was normal and the medical geneticist did not recommend sodium sup plement. He replied that has been "2 days" since he left has blood tests and "demanded" on other tests. Otherwise, his only concern was discharge. He again declined treatment with clozapine. I attempted to explained the reasons for this recommendation but became more guarded, paranoid and defensive. He began accusing me of "threatening him" and "making him "deaf." The latter allegation was related to my opinion that he is experiencing auditory hallucinations. He has been attending most therapeutic groups and activities but often stays last on the duration of the activity. He slept 6 hours last night. Mental status exam: He presented as a neatly groomed and casually dressed 53-year-old male who is irritable and demanding. He made eye contact and attended the interview. He had a angry facial expression. He showed no abnormality of psychomotor activity. His speech was spontaneous and consistent with his mood. His affect was paranoid, irritable and hostile. He denied suicidal ideation or wishes. He talked about receiving messages from the computer monitor. He ruminated over salt tablets. His thinking was concrete and associations were not fully logical goal-directed. He denied hallucinations but again was responding to internal stimuli during our interview. Assessment: He is irritable, demanding and continued to experiencing auditory hallucinations. Overall, his clinical condition is unchanged from admission. He is angry that his demands were not met and is not consenting to a clozapine trial. Plan: Continue inpatient treatment. Safety precautions. Continue Abilify 20 mg daily. Administer Abilify injection 400 mg today. Continued discussion of clozapine. Encouraged continued participation in therapeutic groups and activities. Evaluate clinical status response to treatment daily basis.
--- NOTE | 2019-11-01 11:38 | P.PN ---
Progress Note - Text Progress Note Date: 11/01/19 Clinical Problems: Schizophrenia multiple episodes currently in acute episode, alcohol use disorder moderate Interim history: I reviewed the medical record, interviewed the patient and discuss his treatment and treatment plan during team meeting. He stated that he spoke with his sister over the weekend and on her recommendation he will start clozapine. He did not perseverate about Coca-Cola her salt tablets. I calculated his average daily dose of caffeine if he is consuming 10 2 L bottles of Diet Coke per day. Supposedly there are 42 mg of caffeine per 12 ounces of diet Coke. So he is consuming 2,366.98mg of caffeine per day. Mental status exam: He presented as a neatly groomed and casually dressed 53-year-old male who was not irritable and demanding. He made eye contact and attended the interview. He had blunted but bright facial expression. He showed no abnormality of psychomotor activity. His speech was spontaneous and consistent with his mood. His affect was calm and appropriate. He denied suicidal ideation or wishes. He continues to experience ideas reference and thought insertion. His thinking was concrete and associations were not fully logical goal-directed. He denied hallucinations but again was responding to internal stimuli during our interview. Assessment: The initial irritability was probably related to caffeine withdrawal. Overall, his clinical condition has improved from admission. He has consented to a clozapine trial. Plan: Continue inpatient treatment. Safety precautions. Continue Abilify 20 mg daily. Begin clozapine titration with 12.5 mg daily. Obtain weekly CBC with differential. Encouraged continued participation in therapeutic groups and activities. Evaluate clinical status response to treatment daily basis.
[2019-11-01] MEDS: PANTOPRAZOLE 40 MG TABLET PO SCH (19:44)
[2019-11-01] MEDS: LISINOPRIL 10 MG TAB PO SCH (21:18)
[2019-11-02] MEDS: ARIPiprazole 10 MG TAB PO SCH ×2 (08:52→09:17)
[2019-11-02] MEDS: FUROSEMIDE 20 MG TAB PO SCH (08:52)
[2019-11-02] MEDS: POTASSIUM CHLORIDE ER 10 MEQ TAB.ER.PRT PO SCH (08:53)
[2019-11-02] MEDS: TOPIRAMATE 25 MG TAB PO SCH (08:53)
[2019-11-02] MEDS: ATENOLOL 50 MG TAB PO SCH (08:53)
[2019-11-02] MEDS: TAMSULOSIN 0.4 MG CAP.ER.24H PO SCH (08:53)
[2019-11-02] MEDS ORDERED: cloZAPine 25 MG TAB PO SCH (09:00)
[2019-11-02] MEDS: MAG HYDROX/AL HYDROX/SIMETH 30 ML CUP PO PRN ×2 (09:19→17:23)
[2019-11-02 13:23] LABS: Glucose,Whole Blood 95 mg/dL (75-99)
--- NOTE | 2019-11-02 14:11 | P.PN ---
Progress Note - Text Progress Note Date: 11/02/19 Clinical Problems: Schizophrenia multiple episodes currently in acute episode, alcohol use disorder moderate Interim history: I reviewed the medical record, interviewed the patient and discuss his treatment and treatment plan during team meeting. He received at 25 mg dose of clozapine this morning. At approximately 1310 this afternoon he fell and hit his head. He told the nurse that he fell twice. When nurse evaluated him he was pale and had difficulty responding to questions. His initial blood pressure was 104/61. A repeat was 61/36 then 70/34. He is evaluated by the hospital recruiting operations consultant. Mental status exam: He presented as a pale. 53-year-old male who was not irritable and demanding. He made eye contact and attended the interview. He had blunted but bright facial expression. He showed no abnormality of psychomotor activity. His speech was spontaneous and consistent with his mood. His affect was calm and appropriate. He denied suicidal ideation or wishes. He did not express ideas reference or thought insertion. His thinking was concrete and associations were not fully logical goal-directed. He denied hallucinations but again was responding to internal stimuli during our interview. Assessment: Orthostasis is most likely secondary to clozapine. Plan: Follow recommendations of the hospitalist. Computed tomography scan and x-ray pending. Discontinue clozapine. Discuss treatment with normal. Attentive antipsychotic. Obtain weekly CBC with differential. Encouraged continued participation in therapeutic groups and activities. Evaluate clinical status response to treatment daily basis.
--- NOTE | 2019-11-02 14:27 | CT ---
EXAMINATION TYPE: CT brain wo con DATE OF EXAM: 11/02/2019 COMPARISON: 04/23/2015 HISTORY: 54-year-old male pain after Fall today TECHNIQUE: Examination was done in axial plane without intravenous contrast. Coronal and sagittal r econstructions performed. CT DLP: 1201 mGycm Automated exposure control for dose reduction was used. FINDINGS: Mild posterior scalp swelling. No underlying calvarial fracture. Paranasal sinuses and mastoid air ce lls appear well-pneumatized. Rightward nasal septal deviation. Orbits and globes are intact. Some scattered prominent calvarial artifacts especially posteriorly and along the middle cranial mikhail a. Allowing for this limitation, there is no definite evidence of acute intracranial hemorrhage, acute ischemic changes, mass, mass-effect, or extra-axial fluid collection. There is no effacement of cere bral sulci or basal subarachnoid cisterns. There is no hydrocephalus. There is no midline shift. G ray-white matter distinction is preserved. IMPRESSION: Prominent calvarial artifacts due to head positioning limiting assessment of the posterior convexitie s and middle cranial fossa. Allowing for this limitation, no definite acute intracranial abnormality seen. However, given the extensive artifacts, clinical monitoring is recommended. If any changes in m entation, the exam should be repeated.
[2019-11-02 14:41] LABS: Basophils % (A) 0 %; Eosinophils % (A) 0 %; HCT 43.4 % (39.0-53.0); HGB 14.1 gm/dL (13.0-17.5); Lymphocytes # (A) 0.2 k/uL (1.0-4.8); Lymphocytes % (A) 3 %; MCH 31.1 pg (25.0-35.0); MCHC 32.5 g/dL (31.0-37.0); MCV 95.6 fL (80.0-100.0); Mean Platelet Volume 7.6; Monocytes # (A) 0.3 k/uL (0-1.0); Monocytes % (A) 5 %; Neutrophils # (A) 5.6 k/uL (1.3-7.7); Neutrophils % (A) 89 %; Platelet Count 164 k/uL (150-450); RBC 4.54 m/uL (4.30-5.90); RDW 13.3 % (11.5-15.5); WBC 6.3 k/uL (3.8-10.6)
--- NOTE | 2019-11-02 14:41 | XR ---
Left shoulder HISTORY: Trauma and pain 3 views of left shoulder Bone mineralization, joint spaces and alignment are maintained. Left lung apex as visualized is [place]. IMPRESSION: No fracture or dislocation is evident.
[2019-11-02 14:49] LABS: ALT 18 U/L (4-49); AST 19 U/L (17-59); African American GFR (CKD) >90 (>60 ml/min/1.73 sqM); Albumin 4.1 g/dL (3.5-5.0); Alkaline Phosphatase 44 U/L (38-126); Anion Gap 9 mmol/L; Blood Urea Nitrogen 11 mg/dL (9-20); Calcium 8.8 mg/dL (8.4-10.2); Carbon Dioxide 19 mmol/L (22-30); Chloride 107 mmol/L (98-107); Glucose 114 mg/dL (74-99); Non-African American GFR(CKD) 84 (>60 ml/min/1.73 sqM); Potassium 4.4 mmol/L (3.5-5.1); Sodium 135 mmol/L (137-145); Total Bilirubin 1.7 mg/dL (0.2-1.3); Total Protein 6.8 g/dL (6.3-8.2)
--- NOTE | 2019-11-02 15:08 | P.PN ---
Progress Note - Text Progress Note Date: 11/02/19 Nursing staff reported that patient fell twice on the floor and hit the back of his head. No bleeding was noted. Patient stated that he felt dizzy, lightheaded, got weak and lost balance. He denied losing consciousness. No blurred or double vision. No focal weakness or numbness. No palpitations, chest pain or shortness of breath. Further history revealed that patient was started on clozapine yesterday, started having diarrhea afterwards. Also having some nausea but no vomiting. He had a total of 5 watery stools since last night. Examination revealed positive orthostatic vital signs, Constitutional: No acute distress Eyes:Anicteric sclerae, moist conjunctiva, no lid-lag, PERRLA, Neck: Supple, FROM, no masses, or JVD, No carotid bruits, No thyromegaly Lungs: Clear to auscultation, Clear to percussion, Normal respiratory effort, no accessory muscle use Cardiovascular: Heart regular in rate and rhythm, No murmurs, gallops, or rubs, No peripheral edema Abdominal: Soft, Nontender, no guarding, rebound or rigidity, Normoactive bowel sounds, No hepatomegaly, No splenomegaly, No palpable mass Neuro: Muscles Strength 5/5 in all 4 extremities, Sensation to light touch grossly present throughout, Cranial nerves II-XII grossly intact, no focal sensory deficits Plan: D/C clozapine IV fluids, already given 1 L, will bolus with 1 more liter. Hold blood pressure medications for now Follow blood pressure Fall precautions Care discussed with patient's nurse
[2019-11-02] MEDS ORDERED: SODIUM CHLORIDE 0.9% 1,000 ML IV ONE (15:26)
[2019-11-03] MEDS: ARIPiprazole 10 MG TAB PO SCH (08:17)
[2019-11-03] MEDS: POTASSIUM CHLORIDE ER 10 MEQ TAB.ER.PRT PO SCH (08:17)
[2019-11-03] MEDS: TOPIRAMATE 25 MG TAB PO SCH (08:17)
[2019-11-03] MEDS ORDERED: cloZAPine 25 MG TAB PO SCH (09:00)
[2019-11-03 09:11] LABS: Basophils % (A) 0 %; Eosinophils % (A) 1 %; HGB 14.3 gm/dL (13.0-17.5); Lymphocytes # (A) 0.3 k/uL (1.0-4.8); Lymphocytes % (A) 6 %; MCH 32.3 pg (25.0-35.0); MCHC 33.3 g/dL (31.0-37.0); Mean Platelet Volume 7.6; Monocytes # (A) 0.3 k/uL (0-1.0); Monocytes % (A) 6 %; Neutrophils # (A) 4.6 k/uL (1.3-7.7); Neutrophils % (A) 86 %; Platelet Count 182 k/uL (150-450); RBC 4.44 m/uL (4.30-5.90); RDW 13.7 % (11.5-15.5); WBC 5.3 k/uL (3.8-10.6)
--- NOTE | 2019-11-03 12:57 | P.PN ---
Progress Note - Text Progress Note Date: 11/03/19 Clinical Problems: Schizophrenia multiple episodes currently in acute episode, alcohol use disorder moderate Interim history: I reviewed the medical record, interviewed the patient and discuss his treatment and treatment plan during team meeting. We stopped clozapine yesterday. Medicine administered 2 L of saline IV. The shoulder x- ray was negative for fracture or dislocation. The computed tomography scan was suboptimal but showed no definite intracranial abnormalities. His blood pressu re today was 138/79 with normal orthostatic changes. He attributes the low blood pressure and fall to not being allowed to have Diet Coke or take his "salt pills." I explained that it is likely related to the clozapine appears to have marked sensitivity to the autonomic effects of clozapine. We discussed treatment options and agreed to trial of Prolixin. Mental status exam: He presented casually groomed 53-year-old male who was guarded but pleasant. He made eye contact and attended the interview. He had blunted but bright facial expression. He showed no abnormality of psychomo tor activity. His speech was spontaneous and consistent with his mood. His affect was calm and appropriate. He denied suicidal ideation or wishes. He did not express ideas reference or thought insertion. His thinking was concrete and associations were not fully logical goal-directed. He denied hallucinations but again was responding to internal stimuli during our interview. Assessment: Orthostasis and fall most likely secondary to clozapine. Plan: Continue inpatient hospitalization. Safety precautions. Begin Prolixin 2.5 mg by mouth twice a day and titrated clinical response and tolerance. Encouraged continued participation in therapeutic groups and activities. Evaluate clinical status response to treatment daily basis.
[2019-11-03] MEDS: MAG HYDROX/AL HYDROX/SIMETH 30 ML CUP PO PRN (14:42)
[2019-11-03] MEDS: PANTOPRAZOLE 40 MG TABLET PO SCH (21:04)
[2019-11-04] MEDS: ARIPiprazole 10 MG TAB PO SCH (08:21)
[2019-11-04] MEDS: TOPIRAMATE 25 MG TAB PO SCH (08:21)
[2019-11-04 09:41] LABS: African American GFR (CKD) >90 (>60 ml/min/1.73 sqM); Anion Gap 9 mmol/L; Blood Urea Nitrogen 7 mg/dL (9-20); Calcium 8.8 mg/dL (8.4-10.2); Carbon Dioxide 20 mmol/L (22-30); Chloride 108 mmol/L (98-107); Glucose 117 mg/dL (74-99); Non-African American GFR(CKD) >90 (>60 ml/min/1.73 sqM); Potassium 3.8 mmol/L (3.5-5.1); Sodium 137 mmol/L (137-145)
--- NOTE | 2019-11-04 13:12 | P.PN ---
Progress Note - Text Progress Note Date: 11/04/19 Clinical Problems: Schizophrenia multiple episodes currently in acute episode, alcohol use disorder moderate Interim history: I reviewed the medical record, interviewed the patient and discuss his treatment and treatment plan during team meeting. He denied problems or concerns other than discharge and wanting to be allowed to drink diet Coca-Cola. I explained that the policy does not allow outside food or drinks. He denied experiencing further episodes of lightheadedness, weakness or faintness. Repeat BMP-sodium 137 potassium 3.8 BUN 7 creatinine 0.63 He denied side effects to the initial doses of Prolixin. Mental status exam: He presented casually groomed 53-year-old male who was guarded but pleasant. He made eye contact and attended the interview. He had blunted but bright facial expression. He showed no abnormality of psychomotor activity. His speech was spontaneous and consistent with his mood. His affect was calm and appropriate. He denied suicidal ideation or wishes. He did not express ideas reference or thought insertion. His thinking was concrete and associations were not fully logical goal-directed. He denied hallucinations but again was responding to internal stimuli during our interview. Assessment: No further episodes of orthostasis once we discontinued clozapine. No adverse effects initial dose of Prolixin. Plan: Continue inpatient hospitalization. Safety precautions. Continue Prolixin 2.5 mg by mouth twice a day and titrated clinical response and tolerance. Begin Prolixin Decanoate 25 mg IM monthly. Encouraged continued participation in therapeutic groups and activities. Evaluate clinical status response to treatment daily basis.
[2019-11-04] MEDS ORDERED: fluPHENAZine DECANOATE 25 MG/ML 5ML MDV IM SCH ×3 (13:30→15:00)
[2019-11-05] MEDS ORDERED: cloZAPine 25 MG TAB PO SCH (09:00)
[2019-11-05] MEDS: TOPIRAMATE 25 MG TAB PO SCH (09:23)
--- NOTE | 2019-11-05 11:58 | P.PN ---
Progress Note - Text Progress Note Date: 11/05/19 Clinical Problems: Schizophrenia multiple episodes currently in acute episode, alcohol use disorder moderate Interim history: I reviewed the medical record, interviewed the patient and discuss his treatment and treatment plan during team meeting. With his permission, also spoke with his sister Aviva. Tin denied problems or concerns other than discharge and wanted to drink his diet Coca-Cola. He specifically denied that he is receiving messages from the computer or the computer speakers. He would not talk about past believes her conspiracies. His sister asked about his condition and treatment. She was unaware of the severity of his psychosis prior to admission. She inquired about the reason for prescribing Topamax. I spoke with Tin he stated the psychiatrist the [facility] started Topamax because of his alcohol use. He denied adverse reactions to the initial injection of Prolixin. He has pending therapeutic groups and activities. He posed no management problem and had no episodes of behavioral dyscontrol. Mental status exam: He presented casually groomed 53-year-old male who was guarded but pleasant. He made eye contact and attended the interview. He had blunted but bright facial expression. He showed no abnormality of psychomotor activity. His speech was spontaneous and consistent with his mood. His affect was calm and appropriate. He denied suicidal ideation or wishes. He did not express ideas reference or thought insertion. His thinking was concrete and associations were not fully logical goal-directed. He denied hallucinations but again was responding to internal stimuli during our interview. Assessment: No further episodes of orthostasis once we discontinued clozapine. No adverse effects initial dose of Prolixin decanoate. Plan: Continue inpatient hospitalization. Safety precautions. Continue Prolixin 2.5 mg by mouth twice a day and titrated clinical response and tolerance. Continue Prolixin Decanoate 25 mg IM monthly. Encouraged continued participation in therapeutic groups and activities. Evaluate clinical status response to treatment daily basis.
[2019-11-05] MEDS: PANTOPRAZOLE 40 MG TABLET PO SCH (18:25)
[2019-11-06] MEDS: TOPIRAMATE 25 MG TAB PO SCH (08:20)
--- NOTE | 2019-11-06 11:46 | P.PN ---
Progress Note - Text Progress Note Date: 11/06/19 Interval history: Patient was seen taking part in group and doing a crossword puzzle and was di rectable and agreeable to speak with sign writer letterer or painter. Patient appeared to be polite and was calm during the interview. He was concrete in speaking about his crossword puzzle that he was doing. He states it is getting along with others. He claims that he might be discharged later on this week. He states that his mood has been gradually improving however continues to hear voices "on and off". He claims that he was able to sleep well last night and has a fair appetite. At this time patient denies any suicidal or homicidal ideations intent or plan. Denies any visual hallucinations. Patient denies any side effects from the medications and has been compliant with meds. Mental status exam: General Appearance: Patient appears to be stated age is alert, directable, and cooperative. Behavior: No agitated behavior. Patient is calm and directable cooperative. Speech: Patient's speech is fluent and nonpressured. Monotone. Mood/Affect: Mood is improving mildly, affect is congruent and constricted. Suicidality/Homicidality: Patient denies having any suicidal or homicidal ideation intent or plan. Perceptions: Patient denies any auditory or visual hallucinations. Though content/process: There is no evidence of any delusional thought content and thought process is linear and goal-directed. [place]. Memory and concentration: AOX3, grossly intact for the purposes of this session Judgment and insight: improving mildly Assessment/Plan: Continue with current diagnosis. Patient continues to meet criteria for inpatient psychiatric admission for symptom stabilization and safety.Patient will be maintained on current psychotropic medication regimen. Monitor for medication compliance and for any psychotropic medication side effects. Will continue to monitor ongoing response to treatment. Encouraged participation in milieu.
[2019-11-07] MEDS: TOPIRAMATE 25 MG TAB PO SCH (09:46)
--- NOTE | 2019-11-07 10:40 | P.PN ---
Progress Note - Text Progress Note Date: 11/07/19 Interval history: Patient was seen in his room this morning and was directable and agreeable to speak with sports writer. Patient appeared to be polite and was calm during the interview and for the most part was appropriate with sports writer. He claims that he has been going to groups and getting along with others on the unit. Patient offered no complaints about his medications and states that he was able to sleep well last night. He claims that he might be discharged later on this week. He states that his mood has been gradually improving however continues to hear voices during the day. He states that he was waiting for his close to finish drying and also was wondering if he could have Diet Coke dropped off for him. At this time patient denies any suicidal or homicidal ideations intent or plan. Denies any visual hallucinations. Patient denies any side effects from the medications and has been compliant with meds. Mental status exam: General Appearance: Patient appears to be stated age is alert, directable, and cooperative. Behavior: No agitated behavior. Patient is calm and directable cooperative. Speech: Patient's speech is fluent and nonpressured. Monotone. Mood/Affect: Mood is improving mildly, affect is congruent and constricted. Suicidality/Homicidality: Patient denies having any suicidal or homicidal ideation intent or plan. Perceptions: Patient denies any auditory or visual hallucinations. Though content/process: There is no evidence of any delusional thought content and thought process is linear and goal-directed. [place]. Memory and concentration: AOX3, grossly intact for the purposes of this session Judgment and insight: improving mildly Assessment/Plan: Continue with current diagnosis. Patient continues to meet criteria for inpatient psychiatric admission for symptom stabilization and safety.Patient will be maintained on current psychotropic medication regimen, with the exception of increasing Prolixin by mouth to 3 mg twice a day. Monitor for medication compliance and for any psychotropic medication side effects. Will continue to monitor ongoing response to treatment. Encouraged participation in milieu.
[2019-11-07] MEDS: PANTOPRAZOLE 40 MG TABLET PO SCH (20:22)
[2019-11-08 07:00] VITALS: RESP 18
[2019-11-08] MEDS: TOPIRAMATE 25 MG TAB PO SCH (08:27)
--- NOTE | 2019-11-08 14:09 | P.PN ---
Progress Note - Text Progress Note Date: 11/08/19 Clinical Problems: Schizophrenia multiple episodes currently in acute episode, alcohol use disorder moderate Interim history: I reviewed the medical record, interviewed the patient and discuss his treatment and treatment plan during team meeting. He was ambivalent about discharge requested not to be discharged "until tomorrow or the day after." He described a were organized delusional belief that his thoughts and actions are controlled by what he described as "radiofrequencies". The radiof requencies were boradcast by the president of [facility]. She showed me a paper where he lists a series of steps that he must follow as a result of commands of the radiofrequencies. The items on his list were written as though they were lines in a computer". He later gave me a piece of paper that he wrote "one half shock. [place] glamour adjustment. [employer]." The covering psychiatrist increased his Prolixin to 30 mg twice a day over the weekend. Mental status exam: He presented casually groomed 53-year-old male who was guarded but pleasant. He made eye contact and attended the interview. He had blunted but bright facial expression. He showed no abnormality of psychomotor activity. His speech was spontaneous and consistent with his mood. His affect was calm and appropriate. He denied suicidal ideation or wishes. He expressed ideas of reference. I suspect that is also experiencing thought insertion. His thinking was concrete and associations were not fully lo gical goal-directed. He described ongoing auditory hallucinations and possible command hallucinations. During the interview he frequently stares at the computer monitors and was mumbling to himself. Assessment: He is overall clinical condition appears much worse since we discontinued clozapine. He will probably require treatment with 2 antipsychotics. Plan: Continue inpatient hospitalization. Safety precautions. Continue Prolixin 3 mg by mouth twice a day and titrated clinical response and tolerance. Consider augmentation with olanzapine. Continue Prolixin Decanoate 25 mg IM monthly. Encouraged continued participation in therapeutic groups and activities. Evaluate clinical status response to treatment daily basis.
[2019-11-09] MEDS: TOPIRAMATE 25 MG TAB PO SCH (09:14)
[2019-11-09 11:24] VITALS: BMI 29.9
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
[2019-11-09] MEDS ORDERED: fluPHENAZine DECANOATE 25 MG/ML 5ML MDV IM SCH (14:00)
[2019-11-09] MEDS: PANTOPRAZOLE 40 MG TABLET PO SCH (19:22)
[2019-11-09] MEDS: OLANZapine 5 MG TAB PO SCH (21:41)
[2019-11-10] MEDS: TOPIRAMATE 25 MG TAB PO SCH (08:27)
--- NOTE | 2019-11-10 13:08 | P.PN ---
Progress Note - Text Progress Note Date: 11/10/19 Clinical Problems: Schizophrenia multiple episodes currently in acute episode, alcohol use disorder moderate Interim history: I reviewed the medical record, interviewed the patient and discuss his treatment and treatment plan during team meeting. He was again apprehensive about leaving the hospital today. He denied that he is concerned about his neighbors. He continues expressed multiple paranoid delusional beliefs. He has a fixed paranoid that he is a subject of a conspiracy. He denied side effects to the initial dose of olanzapine. Mental status exam: He presented casually groomed restless 53-year-old male who was guarded but pleasant. He made eye contact and attended the interview. He had blunted but bright facial expression. He showed no abnormality of psychomotor activity. His speech was spontaneous and consistent with his mood. His affect was blunted. He denied suicidal ideation or wishes. He expressed ideas of reference, paranoid ideation and paranoid delusional beliefs. His thinking was concrete and associations were not fully logical goal-directed. He described ongoing auditory hallucinations and possible command hallucinations. During the interview he frequently stares at the computer monitors and was mumbling to himself. Assessment: He is overall clinical condition is improved modestly since admission. He experienced symptomatic orthostasis and the fall with 25 mg of clozapine. Plan: Continue inpatient hospitalization. Safety precautions. Continue Prolixin Decanoate to 25 mg every weekly IM and olanzapine 5 mg at bedtime. Titrate medications according to clinical response and tolerance. Encouraged continued participation in therapeutic groups and activities. Evaluate clinical status response to treatment daily basis.
[2019-11-11 08:35] LABS: Basophils # (A) 0.1 k/uL (0-0.2); Basophils % (A) 1 %; Eosinophils # (A) 0.2 k/uL (0-0.7); Eosinophils % (A) 3 %; HCT 43.5 % (39.0-53.0); HGB 15.3 gm/dL (13.0-17.5); Lymphocytes # (A) 1.3 k/uL (1.0-4.8); Lymphocytes % (A) 23 %; MCH 31.7 pg (25.0-35.0); MCHC 35.2 g/dL (31.0-37.0); Mean Platelet Volume 7.9; Monocytes # (A) 0.4 k/uL (0-1.0); Monocytes % (A) 8 %; Neutrophils # (A) 3.6 k/uL (1.3-7.7); Neutrophils % (A) 63 %; Platelet Count 280 k/uL (150-450); RBC 4.82 m/uL (4.30-5.90); RDW 12.8 % (11.5-15.5); WBC 5.6 k/uL (3.8-10.6)
[2019-11-11 08:54] LABS: ALT 31 U/L (4-49); AST 28 U/L (17-59); African American GFR (CKD) >90 (>60 ml/min/1.73 sqM); Albumin 4.5 g/dL (3.5-5.0); Alkaline Phosphatase 61 U/L (38-126); Anion Gap 10 mmol/L; Blood Urea Nitrogen 8 mg/dL (9-20); Calcium 9.3 mg/dL (8.4-10.2); Carbon Dioxide 21 mmol/L (22-30); Chloride 104 mmol/L (98-107); Glucose 105 mg/dL (74-99); MCV 90.3 fL (80.0-100.0); Non-African American GFR(CKD) >90 (>60 ml/min/1.73 sqM); Potassium 4.7 mmol/L (3.5-5.1); Sodium 135 mmol/L (137-145); Total Bilirubin 1.3 mg/dL (0.2-1.3)
[2019-11-11] MEDS: TOPIRAMATE 25 MG TAB PO SCH (09:11)
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
[2019-11-11] MEDS: PANTOPRAZOLE 40 MG TABLET PO SCH (19:07)
[2019-11-11] MEDS ORDERED: OLANZapine 10 MG TAB PO SCH (21:00)
[2019-11-12 00:05] VITALS: BP 130/79; PULSE 84; TEMP 98.5
[2019-11-12] MEDS: OLANZapine 5 MG TAB PO SCH (08:53)
[2019-11-12] MEDS: TOPIRAMATE 25 MG TAB PO SCH (11:15)
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
== END 2019-11-12 15:05 | disposition home or self-care (01) | DRG 885 ==
LOC: EC 15:33 → 3MHU 17:40
PROVIDERS: ADMIT Psychiatry & Neurology Psychiatry; ATTEND Psychiatry & Neurology Psychiatry
DX: F20.0 Paranoid schizophrenia (principal); E87.1 Hypo-osmolality and hyponatremia; F15.93 Other stimulant use, unspecified with withdrawal; F10.10 Alcohol abuse, uncomplicated; F32.9 Major depressive disorder, single episode, unspecified; H91.90 Unspecified hearing loss, unspecified ear; I10 Essential (primary) hypertension; I95.2 Hypotension due to drugs; T42.4X5A Adverse effect of benzodiazepines, initial encounter; R63.1 Polydipsia; Z79.899 Other long term (current) drug therapy; Z82.49 Family history of ischemic heart disease and other diseases of the circulatory system; W19.XXXA Unspecified fall, initial encounter; F41.9 Anxiety disorder, unspecified; I83.90 Asymptomatic varicose veins of unspecified lower extremity; Z83.2 Family history of diseases of the blood and blood-forming organs and certain disorders involving the immune mechanism
CPT/HCPCS: 70450; 80048; 80053; 80061; 80306; 81003; 82075; 83036; 84443; 85025; 93005; 99285

== ENCOUNTER 2019-11-18 19:44 | Inpatient (IN) | payer MEDICARE, OTHER ==
[2019-11-18] MEDS ORDERED: SODIUM CHLORIDE 0.9% 1,000 ML IV STA (20:09)
[2019-11-18] MEDS ORDERED: ONDANSETRON 4 MG/2 ML VIAL IVP STA (20:09)
--- NOTE | 2019-11-18 20:14 | ED ---
Weakness HPI <Chu Muir - Last Filed: 11/18/19 22:11> - General Source: patient, family Mode of arrival: ambulatory <Tawana Pham - Last Filed: 11/18/19 23:49> - General Chief complaint: Weakness Stated complaint: Mental Health Time Seen by Provider: 11/18/19 20:03 - History of Present Illness Initial comments: 54-year-old male patient with past medical history significant for hypertension and chronic alcohol abuse presents to the emergency department today for evaluation of weakness, shaking, shortness of breath, and vomiting. Patient states had 2 episodes of vomiting today. States he feels weak and shaky. Denies any fever or chills. Denies headache, blurred vision, double vision. Denies any chest pain. Brother says that he seems short of breath, has been breathing heavily all day. Denies any cough or congestion. Denies nasal congestion or drainage. Denies any rash. He denies any hematemesis, hematochezia, or melena. Reports normal bowel movements with no constipation or diarrhea. Denies any new medications. Patient denies any recent back pain, numbness, tingling, dizziness, hematuria, dysuria, urinary urgency, urinary frequency, or any other complaints. (Tawana Pham) - Related Data Home Medications Medication Instructions Recorded Confirmed Omeprazole 20 mg PO Q48H 05/14/18 11/18/19 Previous Rx's Medication Instructions Recorded Benztropine Mesylate [Cogentin] 2 mg PO BID PRN #60 tab 11/12/19 OLANZapine [ZyPREXA] 10 mg PO HS #30 tab 11/12/19 Topiramate 50 mg PO DAILY #30 tab 11/12/19 fluPHENAZine DECANOATE [Prolixin 25 mg IM Q7D #1 ml 11/12/19 Decanoate] Allergies Allergy/AdvReac Type Severity Reaction Status Date / Time No Known Allergies Allergy Verified 11/18/19 21:57 Review of Systems ROS Other: All systems not noted in ROS Statement are negative. <Chu Muir - Last Filed: 11/18/19 22:11> ROS Other: All systems not noted in ROS Statement are negative. <Tawana Pham - Last Filed: 11/18/19 23:49> ROS Statement: Those systems with pertinent positive or pertinent negative responses have been documented in the HPI. Past Medical History Past Medical History: GERD/Reflux, Hypertension Additional Past Medical History / Comment(s): VARICOSE VEINS. History of Any Multi-Drug Resistant Organisms: None Reported Past Surgical History: No Surgical Hx Reported Additional Past Surgical History / Comment(s): TOOTH EXTRACTIONS Past Anesthesia/Blood Transfusion Reactions: No Reported Reaction Additional Past Anesthesia/Blood Transfusion Reaction / Comment(s): Never had Past Psychological History: Anxiety, Depression, Schizophrenia Smoking Status: Never smoker Past Alcohol Use History: None Reported, Occasional Past Drug Use History: None Reported - Past Family History Father Family Medical History: Myocardial Infarction (MD) Additional Family Medical History / Comment(s): AT AGE 58 FROM MD Mother Family Medical History: Deep Vein Thrombosis (DVT), Hypertension Additional Family Medical History / Comment(s): PRIMARY PULMONARY HYPERTENSION <Tawana Pham - Last Filed: 11/18/19 23:49> General Exam Limitations: altered mental status, physical limitation General appearance: obtunded, in distress Head exam: Present: atraumatic, normocephalic, normal inspection Eye exam: Present: normal appearance, PERRL, EOMI. Absent: scleral icterus, conjunctival injection, periorbital swelling ENT exam: Present: normal exam, mucous membranes moist Neck exam: Present: normal inspection. Absent: tenderness, meningismus, lymphadenopathy Respiratory exam: Present: normal lung sounds bilaterally. Absent: respiratory distress, wheezes, rales, rhonchi, stridor Cardiovascular Exam: Present: normal rhythm, tachycardia, normal heart sounds. Absent: systolic murmur, diastolic murmur, rubs, gallop, clicks GI/Abdominal exam: Present: soft, normal bowel sounds. Absent: distended, tenderness, guarding, rebound, rigid Extremities exam: Present: normal inspection, full ROM, normal capillary refill. Absent: tenderness, pedal edema, joint swelling, calf tenderness Back exam: Present: normal inspection Neurological exam: Present: alert, oriented X3, CN II-XII intact Psychiatric exam: Present: normal affect, normal mood Skin exam: Present: warm, dry, intact, normal color. Absent: rash <Chu Muir - Last Filed: 11/18/19 22:11> General appearance: alert, in no apparent distress, other (Physical well-de veloped, well-nourished adult male patient in no acute distress. Vital signs upon presentation are temperature 97.6F, pulse 113, respirations 20, blood pressure 150/93, pulse ox 98% on room air.) Eye exam: Present: normal appearance, PERRL, EOMI. Absent: scleral icterus, conjunctival injection, periorbital swelling ENT exam: Present: normal exam, normal oropharynx, mucous membranes moist Respiratory exam: Present: normal lung sounds bilaterally. Absent: respiratory distress, wheezes, rales, rhonchi, stridor Cardiovascular Exam: Present: normal rhythm, tachycardia, normal heart sounds. Absent: systolic murmur, diastolic murmur, rubs, gallop, clicks GI/Abdominal exam: Present: soft, normal bowel sounds. Absent: distended, tenderness, guarding, rebound, rigid Neurological exam: Present: alert, oriented X3, CN II-XII intact Psychiatric exam: Present: normal affect, normal mood Skin exam: Present: warm, dry, intact, pallor. Absent: normal color, rash <Tawana Pham M - Last Filed: 11/18/19 23:49> Course Vital Signs 11/18/19 11/18/19 11/18/19 19:51 21:40 21:44 Temperature 97.6 F Pulse Rate 113 H 136 H 122 H Respiratory 20 48 H 52 H Rate Blood Pressure 158/93 190/108 171/93 O2 Sat by Pulse 98 96 98 Oximetry 11/18/19 11/18/19 11/18/19 21:50 22:20 22:45 Temperature Pulse Rate 113 H 101 H 102 H Respiratory 38 H 22 22 Rate Blood Pressure 159/91 151/91 150/88 O2 Sat by Pulse 98 97 97 Oximetry 11/18/19 23:10 Temperature 98.0 F Pulse Rate 101 H Respiratory 26 H Rate Blood Pressure 141/87 O2 Sat by Pulse 97 Oximetry EKG Findings - EKG Comments: EKG Findings:: EKG obtained at 2023 shows sinus tachycardia with a ventricular rate of 113, IN interval 164, QRS duration 92, QT 336, QTc 460. No evidence of ST elevation or depression. <Tawana Pham - Last Filed: 11/18/19 23:49> Medical Decision Making - Lab Data Result diagrams: 11/18/19 20:24 11/18/19 20:24 <Chu Muir - Last Filed: 11/18/19 22:11> - Lab Data Result diagrams: 11/18/19 20:24 11/18/19 22:42 <Tawana Pham - Last Filed: 11/18/19 23:49> - Medical Decision Making 54-year-old male patient presented to the emergency department today for evaluation of generalized weakness, shaking, and one episode of vomiting. Patient has a known history of daily alcohol use. Patient has had hyponatremia in the past and states symptoms were similar. Physical examination did reveal mild tremor into the bilateral upper extremities. Patient was answering questions appropriately. Physical examination was otherwise unremarkable. Labs reviewed and did reveal White blood cell count of 11.6, PT/INR were normal. Sodium 113, potassium 3.6, carbon dioxide 7, glucose 118, serum osmolality 237, lactic acid 7.2, using 1.2. Liver enzymes are normal. Did discuss the case with my attending Dr. Muir. Patient's breath alcohol was .000. CIWA and ativan was ordered. Before performing CIWA patient did have what appeared to be a seizure. Patient was exhibiting decorticate posturing and muscle rigidity, not responding to verbal stimuli. Patient was given 2mg IV ativan and moved to a trauma room. IV fluids ordered. Dr. Muir took over care of the patient at 2114. Did speak to Dr. Rivero after repeat labs came back. Informed him of patient's electrolytes and labs. He recommended hypertonic saline 3% at 30cc/hr. Serum sodium check every 2 hours. Stop hypertonic saline when sodium reaches 118 or higher. Cotton insertion. Did enter orders and spoke to ICU nurse Don caring for the patient with instructions. (Tawana Pham) - Lab Data Lab Results 11/18/19 11/18/19 11/18/19 Range/Units 20:24 20:24 20:24 WBC 11.6 H (3.8-10.6) k/uL RBC 4.52 (4.30-5.90) m/uL Hgb 14.4 (13.0-17.5) gm/dL Hct 40.7 (39.0-53.0) % MCV 90.0 (80.0-100.0) fL MCH 31.8 (25.0-35.0) pg MCHC 35.4 (31.0-37.0) g/dL RDW 12.7 (11.5-15.5) % Plt Count 317 (150-450) k/uL Neutrophils % 89 % Lymphocytes % 5 % Monocytes % 5 % Eosinophils % 0 % Basophils % 0 % Neutrophils # 10.4 H (1.3-7.7) k/uL Lymphocytes # 0.6 L (1.0-4.8) k/uL Monocytes # 0.6 (0-1.0) k/uL Eosinophils # 0.0 (0-0.7) k/uL Basophils # 0.0 (0-0.2) k/uL Manual Slide Review Performed PT 10.1 (9.0-12.0) sec INR 1.0 (<1.2) APTT 22.5 (22.0-30.0) sec Sodium 113 L* (137-145) mmol/L Potassium 3.6 (3.5-5.1) mmol/L Chloride 82 L (98-107) mmol/L Carbon Dioxide 7 L* (22-30) mmol/L Anion Gap 24 mmol/L BUN <2 L (9-20) mg/dL Creatinine 0.40 L (0.66-1.25) mg/dL Est GFR (CKD-EPI)AfAm >90 (>60 ml/min/1.73 sqM) Est GFR (CKD-EPI)NonAf >90 (>60 ml/min/1.73 sqM) Glucose 118 H (74-99) mg/dL Osmolality (280-301) mosm/kg Lactic Ac Sepsis Rflx Plasma Lactic Acid Edwin (0.7-2.0) mmol/L Calcium 7.9 L (8.4-10.2) mg/dL Phosphorus (2.5-4.5) mg/dL Magnesium 1.2 L (1.6-2.3) mg/dL Total Bilirubin 2.2 H (0.2-1.3) mg/dL AST 43 (17-59) U/L ALT 26 (4-49) U/L Alkaline Phosphatase 63 (38-126) U/L Troponin I (0.000-0.034) ng/mL Total Protein 7.6 (6.3-8.2) g/dL Albumin 5.0 (3.5-5.0) g/dL TSH 0.917 (0.465-4.680) mIU/L Urine Color Urine Appearance (Clear) Urine pH (5.0-8.0) Ur Specific [place] (1.001-1.035) Urine Protein (Negative) Urine Glucose (UA) (Negative) Urine Ketones (Negative) Urine Blood (Negative) Urine Nitrite (Negative) Urine Bilirubin (Negative) Urine Urobilinogen (<2.0) mg/dL Ur Leukocyte Esterase (Negative) Urine RBC (0-5) /hpf Urine WBC (0-5) /hpf Urine Bacteria (None) /hpf Hyaline Casts (0-2) /lpf Urine Mucus (None) /hpf Urine Osmolality (50-1400) mosm/kg 11/18/19 11/18/19 11/18/19 Range/Units 20:24 20:24 20:24 WBC (3.8-10.6) k/uL RBC (4.30-5.90) m/uL Hgb (13.0-17.5) gm/dL Hct (39.0-53.0) % MCV (80.0-100.0) fL MCH (25.0-35.0) pg MCHC (31.0-37.0) g/dL RDW (11.5-15.5) % Plt Count (150-450) k/uL Neutrophils % % Lymphocytes % % Monocytes % % Eosinophils % % Basophils % % Neutrophils # (1.3-7.7) k/uL Lymphocytes # (1.0-4.8) k/uL Monocytes # (0-1.0) k/uL Eosinophils # (0-0.7) k/uL Basophils # (0-0.2) k/uL Manual Slide Review PT (9.0-12.0) sec INR (<1.2) APTT (22.0-30.0) sec Sodium (137-145) mmol/L Potassium (3.5-5.1) mmol/L Chloride (98-107) mmol/L Carbon Dioxide (22-30) mmol/L Anion Gap mmol/L BUN (9-20) mg/dL Creatinine (0.66-1.25) mg/dL Est GFR (CKD-EPI)AfAm (>60 ml/min/1.73 sqM) Est GFR (CKD-EPI)NonAf (>60 ml/min/1.73 sqM) Glucose (74-99) mg/dL Osmolality (280-301) mosm/kg Lactic Ac Sepsis Rflx Plasma Lactic Acid Edwin 7.2 H* (0.7-2.0) mmol/L Calcium (8.4-10.2) mg/dL Phosphorus (2.5-4.5) mg/dL Magnesium (1.6-2.3) mg/dL Total Bilirubin (0.2-1.3) mg/dL AST (17-59) U/L ALT (4-49) U/L Alkaline Phosphatase (38-126) U/L Troponin I <0.012 (0.000-0.034) ng/mL Total Protein (6.3-8.2) g/dL Albumin (3.5-5.0) g/dL TSH (0.465-4.680) mIU/L Urine Color Urine Appearance (Clear) Urine pH (5.0-8.0) Ur Specific [place] (1.001-1.035) Urine Protein (Negative) Urine Glucose (UA) (Negative) Urine Ketones (Negative) Urine Blood (Negative) Urine Nitrite (Negative) Urine Bilirubin (Negative) Urine Urobilinogen (<2.0) mg/dL Ur Leukocyte Esterase (Negative) Urine RBC (0-5) /hpf Urine WBC (0-5) /hpf Urine Bacteria (None) /hpf Hyaline Casts (0-2) /lpf Urine Mucus (None) /hpf Urine Osmolality 314 (50-1400) mosm/kg 11/18/19 11/18/19 11/18/19 Range/Units 20:24 20:47 20:55 WBC (3.8-10.6) k/uL RBC (4.30-5.90) m/uL Hgb (13.0-17.5) gm/dL Hct (39.0-53.0) % MCV (80.0-100.0) fL MCH (25.0-35.0) pg MCHC (31.0-37.0) g/dL RDW (11.5-15.5) % Plt Count (150-450) k/uL Neutrophils % % Lymphocytes % % Monocytes % % Eosinophils % % Basophils % % Neutrophils # (1.3-7.7) k/uL Lymphocytes # (1.0-4.8) k/uL Monocytes # (0-1.0) k/uL Eosinophils # (0-0.7) k/uL Basophils # (0-0.2) k/uL Manual Slide Review PT (9.0-12.0) sec INR (<1.2) APTT (22.0-30.0) sec Sodium (137-145) mmol/L Potassium (3.5-5.1) mmol/L Chloride (98-107) mmol/L Carbon Dioxide (22-30) mmol/L Anion Gap mmol/L BUN (9-20) mg/dL Creatinine (0.66-1.25) mg/dL Est GFR (CKD-EPI)AfAm (>60 ml/min/1.73 sqM) Est GFR (CKD-EPI)NonAf (>60 ml/min/1.73 sqM) Glucose (74-99) mg/dL Osmolality 237 L* (280-301) mosm/kg Lactic Ac Sepsis Rflx Y Plasma Lactic Acid Edwin (0.7-2.0) mmol/L Calcium (8.4-10.2) mg/dL Phosphorus 2.7 (2.5-4.5) mg/dL Magnesium (1.6-2.3) mg/dL Total Bilirubin (0.2-1.3) mg/dL AST (17-59) U/L ALT (4-49) U/L Alkaline Phosphatase (38-126) U/L Troponin I (0.000-0.034) ng/mL Total Protein (6.3-8.2) g/dL Albumin (3.5-5.0) g/dL TSH (0.465-4.680) mIU/L Urine Color Colorless Urine Appearance Clear (Clear) Urine pH 5.0 (5.0-8.0) Ur Specific [place] 1.006 (1.001-1.035) Urine Protein Negative (Negative) Urine Glucose (UA) 2+ H (Negative) Urine Ketones 1+ H (Negative) Urine Blood Trace H (Negative) Urine Nitrite Negative (Negative) Urine Bilirubin Negative (Negative) Urine Urobilinogen <2.0 (<2.0) mg/dL Ur Leukocyte Esterase Negative (Negative) Urine RBC <1 (0-5) /hpf Urine WBC <1 (0-5) /hpf Urine Bacteria Rare H (None) /hpf Hyaline Casts 1 (0-2) /lpf Urine Mucus Rare H (None) /hpf Urine Osmolality (50-1400) mosm/kg - Radiology Data Two-view x-ray of the chest was obtained. Report was reviewed in its entirety. Impression by Dr. [place]a shows no acute cardiopulmonary process. (Tawana Pham) Critical Care Time Critical Care Time: Yes Total Critical Care Time: 31 <Chu Muir - Last Filed: 11/18/19 22:11> Disposition Is patient prescribed a controlled substance at d/c from ED?: No <Chu Muir - Last Filed: 11/18/19 22:11> <Tawana Pham - Last Filed: 11/18/19 23:49> Clinical Impression: Hyponatremia, Psychogenic polydipsia, Dehydration, New onset seizure, Alcohol abuse Disposition: ADMITTED IP TO THIS HOSP Condition: Serious
[2019-11-18 20:47] LABS: Basophils % (A) 0 %; Eosinophils % (A) 0 %; HCT 40.7 % (39.0-53.0); HGB 14.4 gm/dL (13.0-17.5); Lymphocytes # (A) 0.6 k/uL (1.0-4.8); Lymphocytes % (A) 5 %; MCH 31.8 pg (25.0-35.0); MCHC 35.4 g/dL (31.0-37.0); Mean Platelet Volume 9.8; Monocytes # (A) 0.6 k/uL (0-1.0); Monocytes % (A) 5 %; Neutrophils # (A) 10.4 k/uL (1.3-7.7); Neutrophils % (A) 89 %; RBC 4.52 m/uL (4.30-5.90); RDW 12.7 % (11.5-15.5); WBC 11.6 k/uL (3.8-10.6)
[2019-11-18 20:48] LABS: ALT 26 U/L (4-49); AST 43 U/L (17-59); African American GFR (CKD) >90 (>60 ml/min/1.73 sqM); Alkaline Phosphatase 63 U/L (38-126); Anion Gap 24 mmol/L; Blood Urea Nitrogen <2 mg/dL (9-20); Calcium 7.9 mg/dL (8.4-10.2); Chloride 82 mmol/L (98-107); Glucose 118 mg/dL (74-99); Magnesium 1.2 mg/dL (1.6-2.3); Non-African American GFR(CKD) >90 (>60 ml/min/1.73 sqM); Total Bilirubin 2.2 mg/dL (0.2-1.3); Total Protein 7.6 g/dL (6.3-8.2)
[2019-11-18 20:53] LABS: Potassium 3.6 mmol/L (3.5-5.1)
[2019-11-18 20:54] LABS: Carbon Dioxide 7 mmol/L (22-30); Sodium 113 mmol/L (137-145)
[2019-11-18 20:56] LABS: Platelet Count 317 k/uL (150-450)
[2019-11-18 21:00] LABS: Appearance,Urine Clear (Clear); Bacteria,Urine Rare /hpf; Bilirubin,Urine Negative (Negative); Blood,Urine Trace (Negative); Color,Urine Colorless; Glucose,Urine (UA) 2+ (Negative); Hyaline Casts,Urine 1 /lpf (0-2); Ketones,Urine 1+ (Negative); Leukocyte Esterase,Urine Negative (Negative); Mucus,Urine Rare /hpf; Nitrite,Urine Negative (Negative); Protein,Urine Negative (Negative); RBC,Urine <1 /hpf (0-5); Specific Gravity,Urine 1.006 (1.001-1.035); Urobilinogen,Urine <2.0 mg/dL (<2.0); WBC,Urine <1 /hpf (0-5)
[2019-11-18 21:02] LABS: Partial Thromboplastin Time 22.5 sec (22.0-30.0); Prothrombin Time 10.1 sec (9.0-12.0)
[2019-11-18] MEDS ORDERED: SODIUM CHLORIDE 0.9% 1,000 ML IV ONE (21:10)
[2019-11-18] MEDS ORDERED: LORazepam 2 MG/ML INJ IV PRN ×2 (21:15)
[2019-11-18] MEDS ORDERED: THIAMINE 100 MG/ML 2 ML VIAL IM STA (21:15)
[2019-11-18] MEDS ORDERED: DIAZEPAM 5 MG/ML 2 ML INJ IVP STA (21:17)
[2019-11-18] MEDS ORDERED: LORazepam 2 MG/ML INJ IV STA (21:17)
[2019-11-18] MEDS ORDERED: levETIRAcetam IV 1,500 MG in SALINE 1 100ML.BAG IVPB STA (21:17)
[2019-11-18] MEDS ORDERED: DEXTROSE 5%-0.45% NACL 1,000 ML IV ONE (21:17)
--- NOTE | 2019-11-18 21:27 | XR ---
EXAMINATION TYPE: XR chest 2V DATE OF EXAM: 11/18/2019 COMPARISON: Prior chest x-ray 10/04/2019 HISTORY: Weakness and vomiting TECHNIQUE: Frontal and lateral views of the chest are obtained. FINDINGS: Exam is expiratory and rotated. There is no focal air space opacity, pleural effusion, or p neumothorax seen. The cardiac silhouette size is within normal limits. The osseous structures are intact. IMPRESSION: No acute cardiopulmonary process.
[2019-11-18] MEDS: MAGNESIUM SULFATE-D5W PMX 1 GM in DEXTROSE/WATER 1 100ML.BAG IVPB SCH ×2 (21:34→22:15)
[2019-11-18 21:41] LABS: Phosphorus 2.7 mg/dL (2.5-4.5)
[2019-11-18] MEDS ORDERED: NALOXONE 0.4 MG/ML 1 ML VIAL IV PRN (21:59)
[2019-11-18 23:02] LABS: ALT 24 U/L (4-49); AST 36 U/L (17-59); African American GFR (CKD) >90 (>60 ml/min/1.73 sqM); Albumin 3.7 g/dL (3.5-5.0); Alkaline Phosphatase 51 U/L (38-126); Anion Gap 18 mmol/L; Blood Urea Nitrogen 3 mg/dL (9-20); Chloride 87 mmol/L (98-107); Glucose 111 mg/dL (74-99); Magnesium 2.1 mg/dL (1.6-2.3); Non-African American GFR(CKD) >90 (>60 ml/min/1.73 sqM); Phosphorus 1.5 mg/dL (2.5-4.5); Potassium 3.6 mmol/L (3.5-5.1); VBG PH 7.23 (7.31-7.41)
[2019-11-18 23:03] LABS: Carbon Dioxide 8 mmol/L (22-30); Sodium 113 mmol/L (137-145)
[2019-11-18] MEDS ORDERED: DEXTROSE 5%-0.9% NACL 1,000 ML IV SCH (23:15)
--- NOTE | 2019-11-18 23:41 | CT ---
EXAMINATION TYPE: CT brain wo con DATE OF EXAM: 11/18/2019 COMPARISON: 11/02/2019 HISTORY: seizure CT DLP: 1072.4 mGycm Automated exposure control for dose reduction was used. Ventricles have fairly normal size. There is no mass effect nor midline shift. There is no sign of in tracranial hemorrhage. Calvarium is intact. There is no evidence of cerebral edema. Skull base appear s intact. IMPRESSION: Negative CT scan of the brain. No change.
[2019-11-18] MEDS ORDERED: SODIUM CHLORIDE 3%(HYPERTONIC) 500 ML IV SCH (23:45)
[2019-11-19 00:47] LABS: Glucose,Whole Blood 103 mg/dL (75-99)
[2019-11-19 02:26] LABS: Sodium 116 mmol/L (137-145)
--- NOTE | 2019-11-19 02:31 | XR ---
EXAMINATION TYPE: XR chest 1V portable DATE OF EXAM: 11/19/2019 COMPARISON: Yesterday HISTORY: Weakness. Aspiration. TECHNIQUE: FINDINGS: There is no heart failure nor confluent pneumonic infiltrate. Heart size is normal. Costoph renic angles are clear. There are chest leads. Bony thorax appears intact. IMPRESSION: No active cardiopulmonary disease. Inspiration improved compared to exam yesterday.
[2019-11-19 03:07] LABS: African American GFR (CKD) >90 (>60 ml/min/1.73 sqM); Anion Gap 15 mmol/L; Blood Urea Nitrogen 4 mg/dL (9-20); Calcium 7.9 mg/dL (8.4-10.2); Carbon Dioxide 15 mmol/L (22-30); Chloride 86 mmol/L (98-107); Glucose 90 mg/dL (74-99); Non-African American GFR(CKD) >90 (>60 ml/min/1.73 sqM); Potassium 4.2 mmol/L (3.5-5.1)
[2019-11-19 05:38] LABS: HCT 42.8 % (39.0-53.0); MCH 30.5 pg (25.0-35.0); MCHC 34.9 g/dL (31.0-37.0); MCV 87.2 fL (80.0-100.0); Mean Platelet Volume 7.3; Platelet Count 312 k/uL (150-450); RBC 4.91 m/uL (4.30-5.90); RDW 12.5 % (11.5-15.5); WBC 13.2 k/uL (3.8-10.6)
[2019-11-19 05:46] LABS: African American GFR (CKD) >90 (>60 ml/min/1.73 sqM); Anion Gap 13 mmol/L; Carbon Dioxide 17 mmol/L (22-30); Chloride 91 mmol/L (98-107); Glucose 91 mg/dL (74-99); Non-African American GFR(CKD) >90 (>60 ml/min/1.73 sqM); Sodium 121 mmol/L (137-145)
[2019-11-19 05:47] LABS: Blood Urea Nitrogen 5 mg/dL (9-20); Potassium 4.6 mmol/L (3.5-5.1)
[2019-11-19 05:52] LABS: Band Neutrophils % 1 %; Crenated RBC Present; Lymphocytes # (M) 0.26 k/uL (1.0-4.8); Monocytes # (M) 0.53 k/uL (0-1.0); Neutrophils % (M) 93 %; Nucleated Red Blood Cells 0 /100 WBC (0-0); Total Cells Counted 100
[2019-11-19] MEDS ORDERED: DEXTROSE 5% IN WATER 1,000 ML IV SCH (06:15)
[2019-11-19] MEDS ORDERED: IPRATROPIUM-ALBUTEROL 3 ML NEB INHALATION PRN (07:42)
[2019-11-19] MEDS ORDERED: LEVOFLOXACIN 750MG-D5W PMX 750 MG in DEXTROSE/WATER 1 150ML.BAG IVPB SCH (09:00)
[2019-11-19] MEDS ORDERED: DIAZEPAM 5 MG/ML 2 ML INJ IVP SCH (09:00)
--- NOTE | 2019-11-19 09:37 | P.CNNES ---
History of Present Illness Consult date: 11/19/19 Requesting physician: Chu Muir Reason for Consult: seizure History of Present Illness: History obtained from medical records. This is a 54-year-old gentleman with medical history of hypertension, chronic alcohol abuse, Who presented to the emergency department for evaluation of weakness, shaken, shortness of breath and vomiting. Patient is stated that he had 2 episodes of vomiting the day of presentation as well feeling weak and shaky. He denies fever, headache, visual disturbance, numbness, dizziness. Denies being on any new medication. 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 the ED workup consisted of CT of the head done on which was reported as negative computed tomography scan of the brain. No change. EKG was reported as sinus tachycardia with ventricular rate of 113, bilatrial enlargement, left axis deviation, pulmonary disease pattern. chest x-ray there is no acute cardiopulmonary process. In the hospital prior to given Ativan 2 mg for CIWA protocol patient appears to have a procedure per medical record. Patient was exhibiting decorticate posturing and muscle rigidity, not responding to verbal stimuli. Patient was given 2 mg Ativan. patient sodium on presentation was 113 his baseline sodium is 135-142 he did have episodes in the past and got as low as 121 (2015). He was started on 3% hypertonic saline. And it was decided that the patient to be moved to the ICU. Serum blood glucose on presentation was 118. Patient was seen at bedside and he was drowsy and not responding. No further seizure or jerking movement seen. Review of Systems 12 point review of system and the pertinent positive and negative as per HPI. Past Medical History Past Medical History: GERD/Reflux, Hypertension Additional Past Medical History / Comment(s): VARICOSE VEINS. History of Any Multi-Drug Resistant Organisms: None Reported Past Surgical History: No Surgical Hx Reported Additional Past Surgical History / Comment(s): TOOTH EXTRACTIONS Past Anesthesia/Blood Transfusion Reactions: No Reported Reaction Additional Past Anesthesia/Blood Transfusion Reaction / Comment(s): Never had Past Psychological History: Anxiety, Depression, Schizophrenia Smoking Status: Never smoker Past Alcohol Use History: None Reported, Occasional Past Drug Use History: None Reported - Past Family History Father Family Medical History: Myocardial Infarction ([place]) Additional Family Medical History / Comment(s): AT AGE 58 FROM [place] Mother Family Medical History: Deep Vein Thrombosis (DVT), Hypertension Additional Family Medical History / Comment(s): PRIMARY PULMONARY HYPERTENSION Medications and Allergies Home Medications Medication Instructions Recorded Confirmed Type Omeprazole 20 mg PO Q48H 05/14/18 11/18/19 History OLANZapine [ZyPREXA] 10 mg PO HS #30 tab 11/12/19 11/18/19 Rx Topiramate 50 mg PO DAILY #30 tab 11/12/19 11/18/19 Rx fluPHENAZine DECANOATE [Prolixin 25 mg IM Q7D #1 ml 11/12/19 11/18/19 Rx Decanoate] Atenolol [Tenormin] 50 mg PO DAILY 11/19/19 11/19/19 History Allergies Allergy/AdvReac Type Severity Reaction Status Date / Time No Known Allergies Allergy Verified 11/18/19 21:57 Physical Examination - Vital Signs Vital Signs: Vital Signs Temp Pulse Resp BP Pulse Ox 11/19/19 06:00 111 H 23 134/88 97 11/19/19 05:00 110 H 25 H 142/105 99 11/19/19 04:00 97.9 F 114 H 28 H 147/96 97 11/19/19 03:00 109 H 31 H 147/104 100 11/19/19 02:00 112 H 26 H 109/77 89 L 11/19/19 01:00 101 H 23 144/90 95 11/19/19 00:00 97.5 F L 103 H 19 148/91 96 11/18/19 23:10 98.0 F 101 H 26 H 141/87 97 11/18/19 22:45 102 H 22 150/88 97 11/18/19 22:20 101 H 22 151/91 97 11/18/19 21:50 113 H 38 H 159/91 98 11/18/19 21:44 122 H 52 H 171/93 98 11/18/19 21:40 136 H 48 H 190/108 96 11/18/19 19:51 97.6 F 113 H 20 158/93 98 Intake and Output 11/18/19 11/19/19 11/19/19 22:59 06:59 14:59 Intake Total 90 Output Total 5200 Balance -5110 Intake: IV 30 Sodium Chloride 3%( 30 Hypertonic) 500 ml @ 30 mls/hr IV .[id number] [facility] Rx #:[id number] Intake, IV Titration 60 Amount Sodium Chloride 3%( 60 Hypertonic) 500 ml @ 30 mls/hr IV .[id number] [facility] Rx #:[id number] Output: Urine 5200 Other: Voiding Method Indwelling Catheter Weight 68.039 kg 68.039 kg GENERAL: The patient is lying in bed and is not in acute distress. CHEST: The heart rate is regular rate rhythm. No murmurs to auscultation. LUNG: Rhonci to auscultation throughout. Not labored breathing. ABDOMEN/GI: Bowel sounds present in all 4 quadrants. No tenderness to palpation throughout. NEUROLOGICAL: Limited because of patient condition Higher mental function: Drowsy but awakable to voice and painful stimuli but not responding to questions. Cranial nerves: The pupils are round, equal (3mm bilaterally) and reactive to light. Pupils are in center bilaterally. Visual hurtado are full to confrontati on throughout. Extraocular movement is intact no nystagmus is noted. No facial weakness appreciated. Motor: Gait is defered. The strength is moving all extremities above gravity throughout and no focality seen. Normal tone and bulk. Sensation: Intact to painful stimuli. Reflexes (right/left): 2+ rhroughout except ankles 1+. Plantars are downgoing bilaterally. Results sodium on presentation was 113 at 2024 on 7 10/19/2019. Currently sodium is 121 on 0 533 on 11/19/2019. calcium of 7.9. Wbc cell of 13.2. lactic acid of 2.2, PT of 10.1, INR 1.0, PTT of 22.5. - Laboratory Findings CBC and BMP: 11/19/19 05:33 11/19/19 10:55 Abnormal Lab Findings: Abnormal Labs 11/18/19 11/18/19 11/18/19 20:24 20:24 20:24 WBC 11.6 H Neutrophils # 10.4 H Neutrophils # (Manual) Lymphocytes # 0.6 L Lymphocytes # (Manual) VBG pH VBG pCO2 VBG HCO3 Sodium 113 L* Chloride 82 L Carbon Dioxide 7 L* BUN <2 L Creatinine 0.40 L Glucose 118 H POC Glucose (mg/dL) Osmolality Plasma Lactic Acid Edwin 7.2 H* Calcium 7.9 L Phosphorus Magnesium 1.2 L Total Bilirubin 2.2 H Total Protein Urine Glucose (UA) Urine Ketones Urine Blood Urine Bacteria Urine Mucus 11/18/19 11/18/19 11/18/19 20:24 20:47 22:42 WBC Neutrophils # Neutrophils # (Manual) Lymphocytes # Lymphocytes # (Manual) VBG pH VBG pCO2 VBG HCO3 Sodium 113 L* Chloride 87 L Carbon Dioxide 8 L* BUN 3 L Creatinine 0.40 L Glucose 111 H POC Glucose (mg/dL) Osmolality 237 L* Plasma Lactic Acid Edwin Calcium 7.0 L Phosphorus 1.5 L Magnesium Total Bilirubin 2.0 H Total Protein 6.0 L Urine Glucose (UA) 2+ H Urine Ketones 1+ H Urine Blood Trace H Urine Bacteria Rare H Urine Mucus Rare H 11/18/19 11/18/19 11/19/19 22:42 22:42 00:16 WBC Neutrophils # Neutrophils # (Manual) Lymphocytes # Lymphocytes # (Manual) VBG pH 7.23 L VBG pCO2 22 L VBG HCO3 9 L* Sodium 114 L* Chloride Carbon Dioxide BUN Creatinine Glucose POC Glucose (mg/dL) Osmolality Plasma Lactic Acid Edwin 5.9 H* Calcium Phosphorus Magnesium Total Bilirubin Total Protein Urine Glucose (UA) Urine Ketones Urine Blood Urine Bacteria Urine Mucus 11/19/19 11/19/19 11/19/19 00:45 01:50 01:50 WBC Neutrophils # Neutrophils # (Manual) Lymphocytes # Lymphocytes # (Manual) VBG pH VBG pCO2 VBG HCO3 Sodium 116 L* Chloride 86 L Carbon Dioxide 15 L BUN 4 L Creatinine 0.43 L Glucose POC Glucose (mg/dL) 103 H Osmolality Plasma Lactic Acid Edwin 2.2 H* Calcium 7.9 L Phosphorus Magnesium Total Bilirubin Total Protein Urine Glucose (UA) Urine Ketones Urine Blood Urine Bacteria Urine Mucus 11/19/19 11/19/19 11/19/19 05:33 05:33 05:33 WBC 13.2 H Neutrophils # Neutrophils # (Manual) 12.40 H Lymphocytes # Lymphocytes # (Manual) 0.26 L VBG pH VBG pCO2 VBG HCO3 Sodium 121 L Chloride 91 L Carbon Dioxide 17 L BUN 5 L Creatinine 0.42 L Glucose POC Glucose (mg/dL) Osmolality Plasma Lactic Acid Edwin 2.2 H* Calcium 8.0 L Phosphorus Magnesium Total Bilirubin Total Protein Urine Glucose (UA) Urine Ketones Urine Blood Urine Bacteria Urine Mucus Assessment and Plan Assessment: This is a 54-year-old gentleman with medical history of hypertension, chronic alcohol abuse, Who presented to the emergency department for evaluation of weakness, shaken, shortness of breath and vomiting. Patient is stated that he had 2 episodes of vomiting the day of presentation as well feeling weak and shaky. He had episode of seizure on presentation and was given [address] head was negative for acute abnormality. His initial Na leve was 113. His baseline is 135-142. He was started on 3% hypertnoic saline. Seizure is provoked from hyponatremia Hyponatremia Chronic alcohol use Plan: Regarding his seizure it is likely provoked from hyponatremia. -EEG ordered. Significant Hyponatremia: -His last Na in system was on 11/11/2019 and was 135. He presented with Na level of 113 on 11/18/19. (criteria for chronic hyponatremia is >48 hours. And we are not exactly sure if this was >48hr or not)?. -Regarding correction of Na: Recommend correcting at 6 to 12 mEq per L in the first 24 hours and 18 mEQ per L or less within 48 hours. Rapid correction can lead to osmotic demylination syndrome. He is on 3% hypertonic saline. Regarding alcohol use: -[facility] protocol -On Thiamine 100mg daily. thank you for the consultation Tha Singh M.D. neuro hospitalist Time with Patient: Greater than 30
[2019-11-19] MEDS: THIAMINE 100 MG TAB PO SCH ×2 (09:42→16:52)
[2019-11-19] MEDS: PIPERACILLIN-TAZOBACTAM 3.375 GM in SODIUM CHLORIDE 0.9% 100 ML IVPB SCH ×3 (09:45→23:54)
[2019-11-19] MEDS: ENOXAPARIN 40 MG/0.4 ML SYRINGE SQ SCH (09:46)
[2019-11-19] MEDS: levETIRAcetam IV 1,000 MG in SALINE 1 100ML.BAG IVPB SCH ×2 (09:46→22:18)
[2019-11-19] MEDS: DESMOPRESSIN ACETATE 4 MCG/ML VIAL (MDV) IV SCH (09:46)
[2019-11-19] MEDS: PANTOPRAZOLE 40 MG/10 ML VIAL IV SCH (09:47)
[2019-11-19] MEDS ORDERED: hydrALAZINE HCL 20 MG/ML 1 ML VIAL IVP PRN (09:58)
--- NOTE | 2019-11-19 10:07 | P.HPIM ---
History of Present Illness H&P Date: 11/19/19 History of Present Illness This is a 54-year-old male patient of [facility]'s clinic with past medical history of hypertension, gastroesophageal reflux disease, anxiety, depression, schizophrenia, daily alcohol use. Patient had a hospitalization in October of this year for rectal bleeding and hemoglobin was stable at 13. He was seen by GI with no plan for intervention. He also had a recent psychiatric unit admission, involuntary. The patient follows with [facility] with Dr. Jacinto. The patient was admitted for psychosis which is a chronic issue. He is noted to consume 6-10 L of diet Coke per day and there was also concern that he was drinking alcohol. Patient presents to [facility] emergency center for evaluation of weakness, shaking, shortness of breath and vomiting. Patient apparently had 2 episodes of vomiting today. No fever or chills no chest pain. Apparently brother was with him in the emergency center and thought he was short of breath and had been breathing heavily all day. No cough or congestion. No rash. No known blood in his stools and no diarrhea. No recent medication changes. Blood pressure initially 190/108, heart rate running between 113 and 136. He was afebrile. EKG was sinus tachycardia. WBC 11.6, hemoglobin 14.4, platelet count 317. Sodium 113, potassium 3.6, chloride 82, CO2 7, BUN 2 and creatinine 0.4. Blood sugar 118. Lactic acid 7.2 and this morning at 1.1. Venous pH 7.23, pCO2 22 and bicarb 9. Serum osmolality 237, urine osmolality 314, urine sodium 98. Urinalysis negative for infection. Troponin negative. Total bilirubin 2.2. Calcium 7.9, phosphorus initially 2.7 repeated 1.5. Magnesium 1.2 with repeat at 2.1. Chest x-ray shows no acute cardiac pulmonary process. CAT scan of the brain was negative. In the emergency center, patient had mild tremor and possible seizure activity. Patient was admitted to the intensive care unit, started on 3% saline IV and started on CIWA protocol and IV Keppra. Patient is seen today in the intensive care unit. Patient is obtunded. organ tuner is sinus tachycardia. Consults in place with intensivists, neurology, nephrology and psychiatry. Review of Systems Unable to be obtained due to patient's mental status. Physical Examination Gen: This is a 54-year-old male. No respiratory distress noted. HEENT: Head is atraumatic, normocephalic. Pupils equal, round, sluggish. Sclerae is anicteric. NECK: Supple. No JVD. No lymphadenopathy. No thyromegaly. LUNGS: Scattered rhonchi. No intercostal retractions. HEART: Regular rate and rhythm. No murmur. organ tuner is sinus tachycardia ABDOMEN: Soft. Bowel sounds are present. No masses. No tenderness. EXTREMITIES: No pedal edema. No calf tenderness. NEUROLOGICAL: Patient is unresponsive to verbal/painful stimuli. Assessment and Plan 1. Metabolic encephalopathy secondary to hyponatremia, possible seizure, alcohol abuse. 2. Aspiration pneumonia. Patient started on Levaquin 750 mg daily and Zosyn IV. Dr. Cannon on consult. Patient will need speech therapy evaluation once responsive. 3. Severe metabolic acidosis, lactic acidosis. Consult with nephrology. Patient is currently on IV fluids at D5 4 5 100 mL per hour managed by Dr. Rivero. Patient is status desmopressin 1. 4. Severe hyponatremia most likely secondary to alcohol abuse and psychogenic polydipsia. Nephrology on consult. 5. New onset seizure disorder possibly related to low sodium. Patient's been started on Keppra 1000 mg every 12 hours. Neurology consult. 6. Possible sepsis with aspiration pneumonia. Continue IV antibiotics. 7. History of alcohol abuse. Patient has been placed on the CIWA protocol. 8. 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 Psychiatric evaluation once patient stabilized. Anticipate need for mental health admission. 9. Hypertensive emergency. Patient started on hydralazine 10 mg IV every 4 hours for systolic blood pressure greater than 160. 10. Gastroesophageal reflux disease. Protonix. 11. DVT prophylaxis. Lovenox. 11. COVID-19 testing. Patient will be admitted to the hospital for a minimum of 2 night stay. Discharge plan: To be determined. Patient may require enteral health admission. Impression and plan of care have been directed as dictated by the signing physician. Alla Teran nurse practitioner acting as scribe for signing physician. Past Medical History Past Medical History: GERD/Reflux, Hypertension Additional Past Medical History / Comment(s): VARICOSE VEINS. History of Any Multi-Drug Resistant Organisms: None Reported Past Surgical History: No Surgical Hx Reported Additional Past Surgical History / Comment(s): TOOTH EXTRACTIONS Past Anesthesia/Blood Transfusion Reactions: No Reported Reaction Additional Past Anesthesia/Blood Transfusion Reaction / Comment(s): Never had Past Psychological History: Anxiety, Depression, Schizophrenia Smoking Status: Never smoker Past Alcohol Use History: None Reported, Daily Past Drug Use History: None Reported - Past Family History Father Family Medical History: Myocardial Infarction ([place]) Additional Family Medical History / Comment(s): AT AGE 58 FROM [place] Mother Family Medical History: Deep Vein Thrombosis (DVT), Hypertension Additional Family Medical History / Comment(s): PRIMARY PULMONARY HYPERTENSION Medications and Allergies Home Medications Medication Instructions Recorded Confirmed Type Omeprazole 20 mg PO Q48H 05/14/18 11/18/19 History OLANZapine [ZyPREXA] 10 mg PO HS #30 tab 11/12/19 11/18/19 Rx Topiramate 50 mg PO DAILY #30 tab 11/12/19 11/18/19 Rx fluPHENAZine DECANOATE [Prolixin 25 mg IM Q7D #1 ml 11/12/19 11/18/19 Rx Decanoate] Atenolol [Tenormin] 50 mg PO DAILY 11/19/19 11/19/19 History Allergies Allergy/AdvReac Type Severity Reaction Status Date / Time No Known Allergies Allergy Verified 11/18/19 21:57 Physical Exam Vitals: Vital Signs Temp Pulse Resp BP Pulse Ox 11/19/19 06:00 111 H 23 134/88 97 11/19/19 05:00 110 H 25 H 142/105 99 11/19/19 04:00 97.9 F 114 H 28 H 147/96 97 11/19/19 03:00 109 H 31 H 147/104 100 11/19/19 02:00 112 H 26 H 109/77 89 L 11/19/19 01:00 101 H 23 144/90 95 11/19/19 00:00 97.5 F L 103 H 19 148/91 96 11/18/19 23:10 98.0 F 101 H 26 H 141/87 97 11/18/19 22:45 102 H 22 150/88 97 11/18/19 22:20 101 H 22 151/91 97 11/18/19 21:50 113 H 38 H 159/91 98 11/18/19 21:44 122 H 52 H 171/93 98 11/18/19 21:40 136 H 48 H 190/108 96 11/18/19 19:51 97.6 F 113 H 20 158/93 98 Intake and Output 11/18/19 11/19/19 11/19/19 22:59 06:59 14:59 Intake Total 90 Output Total 5200 Balance -5110 Intake: IV 30 Sodium Chloride 3%( 30 Hypertonic) 500 ml @ 30 mls/hr IV .[id number] [facility] Rx #:[id number] Intake, IV Titration 60 Amount Sodium Chloride 3%( 60 Hypertonic) 500 ml @ 30 mls/hr IV .[id number] [facility] Rx #:[id number] Output: Urine 5200 Other: Voiding Method Indwelling Catheter Weight 68.039 kg 68.039 kg Results CBC & Chem 7: 11/19/19 05:33 11/19/19 05:33 Labs: Abnormal Lab Results - Last 24 Hours (Table) 11/18/19 11/18/19 11/18/19 Range/Units 20:24 20:24 20:24 WBC 11.6 H (3.8-10.6) k/uL Neutrophils # 10.4 H (1.3-7.7) k/uL Neutrophils # (Manual) (1.3-7.7) k/uL Lymphocytes # 0.6 L (1.0-4.8) k/uL Lymphocytes # (Manual) (1.0-4.8) k/uL VBG pH (7.31-7.41) VBG pCO2 (37-51) mmHg VBG HCO3 (24-28) mmol/L Sodium 113 L* (137-145) mmol/L Chloride 82 L (98-107) mmol/L Carbon Dioxide 7 L* (22-30) mmol/L BUN <2 L (9-20) mg/dL Creatinine 0.40 L (0.66-1.25) mg/dL Glucose 118 H (74-99) mg/dL POC Glucose (mg/dL) (75-99) mg/dL Osmolality (280-301) mosm/kg Plasma Lactic Acid Edwin 7.2 H* (0.7-2.0) mmol/L Calcium 7.9 L (8.4-10.2) mg/dL Phosphorus (2.5-4.5) mg/dL Magnesium 1.2 L (1.6-2.3) mg/dL Total Bilirubin 2.2 H (0.2-1.3) mg/dL Total Protein (6.3-8.2) g/dL Urine Glucose (UA) (Negative) Urine Ketones (Negative) Urine Blood (Negative) Urine Bacteria (None) /hpf Urine Mucus (None) /hpf 11/18/19 11/18/19 11/18/19 Range/Units 20:24 20:47 22:42 WBC (3.8-10.6) k/uL Neutrophils # (1.3-7.7) k/uL Neutrophils # (Manual) (1.3-7.7) k/uL Lymphocytes # (1.0-4.8) k/uL Lymphocytes # (Manual) (1.0-4.8) k/uL VBG pH (7.31-7.41) VBG pCO2 (37-51) mmHg VBG HCO3 (24-28) mmol/L Sodium 113 L* (137-145) mmol/L Chloride 87 L (98-107) mmol/L Carbon Dioxide 8 L* (22-30) mmol/L BUN 3 L (9-20) mg/dL Creatinine 0.40 L (0.66-1.25) mg/dL Glucose 111 H (74-99) mg/dL POC Glucose (mg/dL) (75-99) mg/dL Osmolality 237 L* (280-301) mosm/kg Plasma Lactic Acid Edwin (0.7-2.0) mmol/L Calcium 7.0 L (8.4-10.2) mg/dL Phosphorus 1.5 L (2.5-4.5) mg/dL Magnesium (1.6-2.3) mg/dL Total Bilirubin 2.0 H (0.2-1.3) mg/dL Total Protein 6.0 L (6.3-8.2) g/dL Urine Glucose (UA) 2+ H (Negative) Urine Ketones 1+ H (Negative) Urine Blood Trace H (Negative) Urine Bacteria Rare H (None) /hpf Urine Mucus Rare H (None) /hpf 11/18/19 11/18/19 11/19/19 Range/Units 22:42 22:42 00:16 WBC (3.8-10.6) k/uL Neutrophils # (1.3-7.7) k/uL Neutrophils # (Manual) (1.3-7.7) k/uL Lymphocytes # (1.0-4.8) k/uL Lymphocytes # (Manual) (1.0-4.8) k/uL VBG pH 7.23 L (7.31-7.41) VBG pCO2 22 L (37-51) mmHg VBG HCO3 9 L* (24-28) mmol/L Sodium 114 L* (137-145) mmol/L Chloride (98-107) mmol/L Carbon Dioxide (22-30) mmol/L BUN (9-20) mg/dL Creatinine (0.66-1.25) mg/dL Glucose (74-99) mg/dL POC Glucose (mg/dL) (75-99) mg/dL Osmolality (280-301) mosm/kg Plasma Lactic Acid Edwin 5.9 H* (0.7-2.0) mmol/L Calcium (8.4-10.2) mg/dL Phosphorus (2.5-4.5) mg/dL Magnesium (1.6-2.3) mg/dL Total Bilirubin (0.2-1.3) mg/dL Total Protein (6.3-8.2) g/dL Urine Glucose (UA) (Negative) Urine Ketones (Negative) Urine Blood (Negative) Urine Bacteria (None) /hpf Urine Mucus (None) /hpf 11/19/19 11/19/19 11/19/19 Range/Units 00:45 01:50 01:50 WBC (3.8-10.6) k/uL Neutrophils # (1.3-7.7) k/uL Neutrophils # (Manual) (1.3-7.7) k/uL Lymphocytes # (1.0-4.8) k/uL Lymphocytes # (Manual) (1.0-4.8) k/uL VBG pH (7.31-7.41) VBG pCO2 (37-51) mmHg VBG HCO3 (24-28) mmol/L Sodium 116 L* (137-145) mmol/L Chloride 86 L (98-107) mmol/L Carbon Dioxide 15 L (22-30) mmol/L BUN 4 L (9-20) mg/dL Creatinine 0.43 L (0.66-1.25) mg/dL Glucose (74-99) mg/dL POC Glucose (mg/dL) 103 H (75-99) mg/dL Osmolality (280-301) mosm/kg Plasma Lactic Acid Edwin 2.2 H* (0.7-2.0) mmol/L Calcium 7.9 L (8.4-10.2) mg/dL Phosphorus (2.5-4.5) mg/dL Magnesium (1.6-2.3) mg/dL Total Bilirubin (0.2-1.3) mg/dL Total Protein (6.3-8.2) g/dL Urine Glucose (UA) (Negative) Urine Ketones (Negative) Urine Blood (Negative) Urine Bacteria (None) /hpf Urine Mucus (None) /hpf 11/19/19 11/19/19 11/19/19 Range/Units 05:33 05:33 05:33 WBC 13.2 H (3.8-10.6) k/uL Neutrophils # (1.3-7.7) k/uL Neutrophils # (Manual) 12.40 H (1.3-7.7) k/uL Lymphocytes # (1.0-4.8) k/uL Lymphocytes # (Manual) 0.26 L (1.0-4.8) k/uL VBG pH (7.31-7.41) VBG pCO2 (37-51) mmHg VBG HCO3 (24-28) mmol/L Sodium 121 L (137-145) mmol/L Chloride 91 L (98-107) mmol/L Carbon Dioxide 17 L (22-30) mmol/L BUN 5 L (9-20) mg/dL Creatinine 0.42 L (0.66-1.25) mg/dL Glucose (74-99) mg/dL POC Glucose (mg/dL) (75-99) mg/dL Osmolality (280-301) mosm/kg Plasma Lactic Acid Edwin 2.2 H* (0.7-2.0) mmol/L Calcium 8.0 L (8.4-10.2) mg/dL Phosphorus (2.5-4.5) mg/dL Magnesium (1.6-2.3) mg/dL Total Bilirubin (0.2-1.3) mg/dL Total Protein (6.3-8.2) g/dL Urine Glucose (UA) (Negative) Urine Ketones (Negative) Urine Blood (Negative) Urine Bacteria (None) /hpf Urine Mucus (None) /hpf Thrombosis Risk Factor Assmnt - Choose All That Apply Any of the Below Risk Factors Present?: Yes Each Factor Represents 1 point: Age 41-60 years, Medical pt on bed rest Other Risk Factors: Yes Each Risk Factor Represents 2 Points: Patient confined to bed Thrombosis Risk Factor Assessment Total Risk Factor Score: 4 Thrombosis Risk Factor Assessment Level: Moderate Risk
[2019-11-19] MEDS: IPRATROPIUM-ALBUTEROL 3 ML NEB INHALATION SCH ×4 (10:20→19:55)
--- NOTE | 2019-11-19 10:51 | P.NPCON ---
History of Present Illness - Reason for Consult hyponatremia - History of Present Illness Reason for consultation: Hyponatremia History of present illness: Patient is a 54-year-old male seen in renal consultation for hyponatremia. Patient's sodium level on admission on 11/18/2019 at 8:24 PM was 113. He did have a seizure in the ER. He received normal saline boluses. He was then also started on 3% for short duration. 3% saline was subsequently discontinued due to high urine output. He is currently on D5W at 75 mL an hour. Sodium level was 121 this morning. Patient is not a reliable historian. He is quite lethargic. Patient has history of alcohol abuse and will binge drink large amounts at a time. He also has history of drinking significant amount of fluids. Per records, he drinks 10 L of diet Coke daily. He also received 1 g of DDAVP this morning. Urine output in the last 3 hours was about 550 mL. Blood pressure stable. Oral intake poor. Vital signs are stable. General: The patient appeared well nourished and normally developed. Lethargic. HEENT: Head exam is unremarkable. Neck is without jugular venous distension. LUNGS: Lungs are clear to auscultation and percussion. Breath sounds decreased. HEART: Rate and Rhythm are regular. ABDOMEN: Soft, nontender. EXTREMITITES: No clubbing, cyanosis, or edema. Past Medical History Past Medical History: GERD/Reflux, Hypertension Additional Past Medical History / Comment(s): VARICOSE VEINS. History of Any Multi-Drug Resistant Organisms: None Reported Past Surgical History: No Surgical Hx Reported Additional Past Surgical History / Comment(s): TOOTH EXTRACTIONS Past Anesthesia/Blood Transfusion Reactions: No Reported Reaction Additional Past Anesthesia/Blood Transfusion Reaction / Comment(s): Never had Past Psychological History: Anxiety, Depression, Schizophrenia Smoking Status: Never smoker Past Alcohol Use History: None Reported, Daily Past Drug Use History: None Reported - Past Family History Father Family Medical History: Myocardial Infarction ([place]) Additional Family Medical History / Comment(s): AT AGE 58 FROM [place] Mother Family Medical History: Deep Vein Thrombosis (DVT), Hypertension Additional Family Medical History / Comment(s): PRIMARY PULMONARY HYPERTENSION Medications and Allergies Home Medications Medication Instructions Recorded Confirmed Type Omeprazole 20 mg PO Q48H 05/14/18 11/18/19 History OLANZapine [ZyPREXA] 10 mg PO HS #30 tab 11/12/19 11/18/19 Rx Topiramate 50 mg PO DAILY #30 tab 11/12/19 11/18/19 Rx fluPHENAZine DECANOATE [Prolixin 25 mg IM Q7D #1 ml 11/12/19 11/18/19 Rx Decanoate] Atenolol [Tenormin] 50 mg PO DAILY 11/19/19 11/19/19 History Allergies Allergy/AdvReac Type Severity Reaction Status Date / Time No Known Allergies Allergy Verified 11/18/19 21:57 Physical Exam Vitals: Vital Signs Temp Pulse Resp BP Pulse Ox 11/19/19 10:37 98 11/19/19 10:00 105 H 23 144/87 99 11/19/19 09:00 110 H 27 H 123/73 98 11/19/19 08:00 97.5 F L 121 H 27 H 114/80 96 11/19/19 07:00 110 H 27 H 136/95 90 L 11/19/19 06:00 111 H 23 134/88 97 11/19/19 05:00 110 H 25 H 142/105 99 11/19/19 04:00 97.9 F 114 H 28 H 147/96 97 11/19/19 03:00 109 H 31 H 147/104 100 11/19/19 02:00 112 H 26 H 109/77 89 L 11/19/19 01:00 101 H 23 144/90 95 11/19/19 00:00 97.5 F L 103 H 19 148/91 96 11/18/19 23:10 98.0 F 101 H 26 H 141/87 97 11/18/19 22:45 102 H 22 150/88 97 11/18/19 22:20 101 H 22 151/91 97 11/18/19 21:50 113 H 38 H 159/91 98 11/18/19 21:44 122 H 52 H 171/93 98 11/18/19 21:40 136 H 48 H 190/108 96 11/18/19 19:51 97.6 F 113 H 20 158/93 98 Intake and Output 11/18/19 11/19/19 11/19/19 22:59 06:59 14:59 Intake Total 90 150 Output Total 0874 573 Balance -4047 -621 Intake: IV 30 150 Dextrose 5% in Water 1, 150 000 ml @ 75 mls/hr IV . [id number] [facility] Rx#:[id number] Sodium Chloride 3%( 30 Hypertonic) 500 ml @ 30 mls/hr IV .[id number] [facility] Rx #:[id number] Intake, IV Titration 60 Amount Sodium Chloride 3%( 60 Hypertonic) 500 ml @ 30 mls/hr IV .[id number] [facility] Rx #:[id number] Output: Urine 5200 575 Other: Voiding Method Indwelling Catheter Indwelling Catheter Weight 68.039 kg 85.9 kg Results - Lab Results Most recent lab results Calcium 8.0 mg/dL (8.4-10.2) L 11/19/19 05:33 Phosphorus 1.5 mg/dL (2.5-4.5) L 11/18/19 22:42 Magnesium 2.1 mg/dL (1.6-2.3) 11/18/19 22:42 11/19/19 05:33 11/19/19 05:33 Assessment and Plan Plan: Assessment: 1. Hypovolemic hyponatremia. Also component of excess fluid intake and poor solute intake. Sodium level 113 on admission last night and 121 this morning. TSH normal. Urine osmolality 314. Urine random sodium 98. 2. Metabolic acidosis secondary to Topamax and lactic acidosis. 3. Aspiration pneumonia maintained on antibiotics. 4. New onset seizure secondary to hyponatremia. Neurology following. 5. History of alcohol abuse. 6. History of schizophrenia and chronic psychosis. Plan: Increase D5W to 125 mL an hour. Status post DDAVP this morning. Repeat sodium level at 11 AM. Avoid rapid correction of sodium level. Brain CT negative. Thank you for the consultation. I will continue to follow the patient with you during his hospital stay.
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
[2019-11-19 12:25] LABS: Appearance,Urine Clear (Clear); Bacteria,Urine Rare /hpf; Bilirubin,Urine Negative (Negative); Blood,Urine Small (Negative); Color,Urine Yellow; Glucose,Urine (UA) Negative (Negative); Hyaline Casts,Urine 1 /lpf (0-2); Ketones,Urine 4+ (Negative); Leukocyte Esterase,Urine Moderate (Negative); Mucus,Urine Rare /hpf; Nitrite,Urine Negative (Negative); Protein,Urine Trace (Negative); RBC,Urine 1 /hpf (0-5); Specific Gravity,Urine 1.013 (1.001-1.035); Squamous Epithelial Cell,Urine <1 /hpf (0-4); Urobilinogen,Urine <2.0 mg/dL (<2.0); WBC,Urine 15 /hpf (0-5)
--- NOTE | 2019-11-19 13:52 | P.CON ---
Consult Note - . Consult date: 11/19/19 Assessment/Plan:: Clinical Problems: Delirium due to hyponatremia, seizure, schizophrenia, psychogenic polydipsia, history of hypotension Interim history: I reviewed the medical record and attempted to interview the patient. He is a 54-year-old male known to psychiatry service due to prior psychiatric hospitalizations. He was discharged from psychiatric unit on 11/12/2019 with a diagnosis of schizophrenia and psychogenic polydipsia. He has a long history of psychosis schizophrenia and multiple trials of antipsychotic medications. He has history of poor response to antipsychotic medications and is chronically psychotic. He also history of self-induced water intoxication where we have to restrict his food intake when he is on the psychiatric unit. He was nonresponsive and unable to provide a history. Mental status exam: He presented as a thin casually groomed middle-aged male with pale complexion. He was unresponsive to his fourth. He was restless in bed. Assessment: He has signs and symptoms of acute delirium is likely related to hyponatremia. Given his history of psychogenic polydipsia I suspect that he was consuming excessive amounts of water and diet Coca-Cola prior to admission. Plan: Hold psychotropic medications at this time. Psychiatry will follow. Thank you for the consult.
[2019-11-19] MEDS ORDERED: SODIUM CHLORIDE 3%(HYPERTONIC) 500 ML IV SCH (17:30)
[2019-11-19] MEDS: LORazepam 2 MG/ML INJ IV PRN (20:32)
[2019-11-20] MEDS: LORazepam 2 MG/ML INJ IV PRN (02:12)
[2019-11-20 05:14] LABS: ALT 49 U/L (4-49); AST 456 U/L (17-59); African American GFR (CKD) >90 (>60 ml/min/1.73 sqM); Albumin 3.8 g/dL (3.5-5.0); Alkaline Phosphatase 57 U/L (38-126); Anion Gap 9 mmol/L; Blood Urea Nitrogen 3 mg/dL (9-20); Calcium 8.2 mg/dL (8.4-10.2); Carbon Dioxide 18 mmol/L (22-30); Chloride 98 mmol/L (98-107); Glucose 94 mg/dL (74-99); Magnesium 2.3 mg/dL (1.6-2.3); Non-African American GFR(CKD) >90 (>60 ml/min/1.73 sqM); Potassium 3.6 mmol/L (3.5-5.1); Sodium 125 mmol/L (137-145); Total Protein 6.2 g/dL (6.3-8.2)
--- NOTE | 2019-11-20 06:28 | XR ---
EXAMINATION TYPE: XR chest 1V portable DATE OF EXAM: 11/20/2019 HISTORY: sob. REFERENCE: Previous study dated 11/19/2019. FINDINGS: The patient has taken a relatively poor inspiration. Heart size upper limits of normal. There is vascular congestion without agustina edema. Pleural spaces a re clear. IMPRESSION: 1. POOR INSPIRATION. 2. MILD VASCULAR CONGESTION.
[2019-11-20] MEDS: IPRATROPIUM-ALBUTEROL 3 ML NEB INHALATION SCH ×4 (08:32→19:22)
[2019-11-20] MEDS: THIAMINE 100 MG TAB PO SCH (08:55)
[2019-11-20] MEDS: PANTOPRAZOLE 40 MG/10 ML VIAL IV SCH (09:48)
[2019-11-20] MEDS: ENOXAPARIN 40 MG/0.4 ML SYRINGE SQ SCH (09:48)
[2019-11-20] MEDS: PIPERACILLIN-TAZOBACTAM 3.375 GM in SODIUM CHLORIDE 0.9% 100 ML IVPB SCH ×3 (09:48→23:32)
--- NOTE | 2019-11-20 10:41 | P.PN ---
Subjective Progress Note Date: 11/20/19 This is a 54-year-old male patient of [facility] clinic with past medical history of hypertension, gastroesophageal reflux disease, anxiety, depression, schizophrenia, daily alcohol use. Patient had a hospitalization in October of this year for rectal bleeding and hemoglobin was stable at 13. He was seen by GI with no plan for intervention. He also had a recent psychiatric unit admission, involuntary. The patient follows with [facility] with Dr. Jacinto. The patient was admitted for psychosis which is a chronic issue. He is noted to consume 6-10 L of diet Coke per day and there was also concern that he was drinking alcohol. Patient presents to [facility] emergency center for evaluation of weakness, shaking, shortness of breath and vomiting. Patient apparently had 2 episodes of vomiting today. No fever or chills no chest pain. Apparently brother was with him in the emergency center and thought he was short of breath and had been breathing heavily all day. No cough or congestion. No rash. No known blood in his stools and no diarrhea. No recent medication changes. Blood pressure initially 190/108, heart rate running between 113 and 136. He was afebrile. EKG was sinus tachycardia. WBC 11.6, hemoglobin 14.4, platelet count 317. Sodium 113, potassium 3.6, chloride 82, CO2 7, BUN 2 and creatinine 0.4. Blood sugar 118. Lactic acid 7.2 and this morning at 1.1. Venous pH 7.23, pCO2 22 and bicarb 9. Serum osmolality 237, urine osmolality 314, urine sodium 98. Urinalysis negative for infection. Troponin negative. Total bilirubin 2.2. Calcium 7.9, phosphorus initially 2.7 repeated 1.5. Magnesium 1.2 with repeat at 2.1. Chest x-ray shows no acute cardiac pulmonary process. CAT scan of the brain was negative. In the emergency center, patient had mild tremor and possible seizure activity. Patient was admitted to the intensive care unit, started on 3% saline IV and started on CIWA protocol and IV Keppra. Patient is seen today in the intensive care unit. Patient is obtunded. quality assurance monitor final is sinus tachycardia. Consults in place with intensivists, neurology, nephrology and psychiatry. 11/19: Patient remains in the intensive care unit. He is an awake and alert but unable to answer questions. This morning, he had a first episode small amount of liquid stool. Heart rate in the 90s and low 100s, blood pressure 100/77, pulse ox is 100% on O2. Blood work at 4 AM revealed sodium 125, CO2 18, BUN 3 and creatinine 0.49. AST 456. Patient has been seen and followed by multiple consultants. Patient remains nothing by mouth and thiamine will be changed to IV. Speech therapy consult added which will see him on Friday. EEG was unable to be obtained. Review of Systems Unable to be obtained due to patient's mental status. Physical Examination Gen: This is a 54-year-old male. No respiratory distress noted. HEENT: Head is atraumatic, normocephalic. Pupils equal, round, sluggish. Sclerae is anicteric. NECK: Supple. No JVD. No lymphadenopathy. No thyromegaly. LUNGS: Scattered rhonchi. No intercostal retractions. HEART: Regular rate and rhythm. No murmur. quality assurance monitor final is sinus tachycardia ABDOMEN: Soft. Bowel sounds are present. No masses. No tenderness. Cotton catheter draining clear raheel urine EXTREMITIES: No pedal edema. No calf tenderness. NEUROLOGICAL: Patient is awake and remains disoriented. Unable to answer questions. Assessment and Plan 1. Metabolic encephalopathy secondary to hyponatremia, possible seizure, alcohol abuse. EEG was unable to be obtained. Neurology consult appreciated. 2. Aspiration pneumonia. Continue Zosyn IV. Dr. Cannon consult appreciated. Patient will need speech therapy evaluation on Friday. 3. Severe metabolic acidosis, lactic acidosis. Consult with nephrology. Patient is status desmopressin 1. 4. Severe hyponatremia most likely secondary to alcohol abuse and psychogenic polydipsia. Nephrology consult appreciated. 5. New onset seizure disorder possibly related to low sodium. Patient's been started on Keppra 1000 mg every 12 hours. Neurology consult appreciated. 6. Possible sepsis with aspiration pneumonia. Continue IV antibiotics. 7. History of alcohol abuse. Patient has been placed on the CIWA protocol. 8. 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 Psychiatric evaluation once patient stabilized. Anticipate need for mental health admission. 9. Hypertensive emergency. Patient started on hydralazine 10 mg IV every 4 hours for systolic blood pressure greater than 160. 10. Gastroesophageal reflux disease. Protonix. 11. DVT prophylaxis. Lovenox. 11. COVID-19 infection not present. Discharge plan: To be determined. Patient may require enteral health admission. Impression and plan of care have been directed as dictated by the signing physician. Alla Teran nurse practitioner acting as scribe for signing physician. Objective - Vital Signs Vital signs: Vital Signs Temp 98.5 F 11/20/19 04:00 Pulse 95 11/20/19 08:42 Resp 20 11/20/19 06:00 BP 100/77 11/20/19 06:00 Pulse Ox 100 11/20/19 06:00 Intake & Output 11/19/19 11/20/19 11/20/19 18:59 06:59 18:59 Intake Total 460 590 Output Total 1375 1895 Balance -915 -1305 Weight 83.1 kg Intake: IV 460 490 Dextrose 5% in Water 1, 420 450 000 ml @ 75 mls/hr IV . [id number] [facility] Rx#:[id number] Sodium Chloride 3%( 40 40 Hypertonic) 500 ml @ 20 mls/hr IV .Q24H [facility] Rx#: [id number] Intake, IV Titration 100 Amount levETIRAcetam IV 1,000 mg 100 In Saline 1 100ml.bag @ 400 mls/hr IVPB Q12HR [facility] Rx#:[id number] Output: Urine 1375 1895 Other: Voiding Method Indwelling Catheter Indwelling Catheter - Labs CBC & Chem 7: 11/19/19 05:33 11/20/19 04:27 Labs: Abnormal Lab Results - Last 24 Hours (Table) 11/19/19 11/19/19 11/19/19 Range/Units 10:55 12:00 15:54 Sodium 119 L* 118 L* (137-145) mmol/L Carbon Dioxide (22-30) mmol/L BUN (9-20) mg/dL Creatinine (0.66-1.25) mg/dL Calcium (8.4-10.2) mg/dL Total Bilirubin (0.2-1.3) mg/dL AST (17-59) U/L Total Protein (6.3-8.2) g/dL Urine Protein Trace H (Negative) Urine Ketones 4+ H (Negative) Urine Blood Small H (Negative) Ur Leukocyte Esterase Moderate H (Negative) Urine WBC 15 H (0-5) /hpf Urine Bacteria Rare H (None) /hpf Urine Mucus Rare H (None) /hpf 11/19/19 11/20/19 11/20/19 Range/Units 20:11 00:53 04:27 Sodium 120 L 122 L 125 L (137-145) mmol/L Carbon Dioxide 18 L (22-30) mmol/L BUN 3 L (9-20) mg/dL Creatinine 0.49 L (0.66-1.25) mg/dL Calcium 8.2 L (8.4-10.2) mg/dL Total Bilirubin 4.0 H (0.2-1.3) mg/dL AST 456 H (17-59) U/L Total Protein 6.2 L (6.3-8.2) g/dL Urine Protein (Negative) Urine Ketones (Negative) Urine Blood (Negative) Ur Leukocyte Esterase (Negative) Urine WBC (0-5) /hpf Urine Bacteria (None) /hpf Urine Mucus (None) /hpf Microbiology - Last 24 Hours (Table) 11/19/19 12:00 Urine Culture - Preliminary Urine,Voided
[2019-11-20] MEDS: DESMOPRESSIN ACETATE 4 MCG/ML VIAL (MDV) IV SCH (10:47)
[2019-11-20] MEDS: THIAMINE 100 MG/ML 2 ML VIAL IVP SCH (10:48)
[2019-11-20] MEDS: levETIRAcetam IV 1,000 MG in SALINE 1 100ML.BAG IVPB SCH ×2 (10:52→20:43)
[2019-11-20] MEDS ORDERED: DEXTROSE 5% IN WATER 1,000 ML IV ONE (11:53)
--- NOTE | 2019-11-20 12:20 | P.PN ---
Subjective Progress Note Date: 11/20/19 Follow-up for hyponatremia. Sodium improving. 3% saline was stopped last night. Objective - Vital Signs Vital signs: Vital Signs Temp 98.6 F 11/20/19 08:00 Pulse 96 11/20/19 11:29 Resp 15 11/20/19 11:00 BP 135/95 11/20/19 11:00 Pulse Ox 99 11/20/19 11:00 Intake & Output 11/19/19 11/20/19 11/20/19 18:59 06:59 18:59 Intake Total 460 590 375 Output Total 1375 1895 740 Balance -915 -1305 -365 Weight 83.1 kg Intake: IV 460 490 375 .9 225 Dextrose 5% in Water 1, 420 450 150 000 ml @ 75 mls/hr IV . [id number] [facility] Rx#:[id number] Sodium Chloride 3%( 40 40 Hypertonic) 500 ml @ 20 mls/hr IV .Q24H [facility] Rx#: [id number] Intake, IV Titration 100 Amount levETIRAcetam IV 1,000 mg 100 In Saline 1 100ml.bag @ 400 mls/hr IVPB Q12HR [facility] Rx#:[id number] Output: Urine 1375 1895 740 Other: Voiding Method Indwelling Catheter Indwelling Catheter Indwelling Catheter # Bowel Movements 1 - Exam No acute distress Comfortably sleeping S1-S2 heard Lungs clear No edema - Labs CBC & Chem 7: 11/19/19 05:33 11/20/19 10:33 Labs: Abnormal Lab Results - Last 24 Hours (Table) 11/19/19 11/19/19 11/19/19 Range/Units 12:00 15:54 20:11 Sodium 118 L* 120 L (137-145) mmol/L Carbon Dioxide (22-30) mmol/L BUN (9-20) mg/dL Creatinine (0.66-1.25) mg/dL Calcium (8.4-10.2) mg/dL Total Bilirubin (0.2-1.3) mg/dL AST (17-59) U/L Total Protein (6.3-8.2) g/dL Urine Protein Trace H (Negative) Urine Ketones 4+ H (Negative) Urine Blood Small H (Negative) Ur Leukocyte Esterase Moderate H (Negative) Urine WBC 15 H (0-5) /hpf Urine Bacteria Rare H (None) /hpf Urine Mucus Rare H (None) /hpf 11/20/19 11/20/19 11/20/19 Range/Units 00:53 04:27 10:33 Sodium 122 L 125 L 129 L (137-145) mmol/L Carbon Dioxide 18 L (22-30) mmol/L BUN 3 L (9-20) mg/dL Creatinine 0.49 L (0.66-1.25) mg/dL Calcium 8.2 L (8.4-10.2) mg/dL Total Bilirubin 4.0 H (0.2-1.3) mg/dL AST 456 H (17-59) U/L Total Protein 6.2 L (6.3-8.2) g/dL Urine Protein (Negative) Urine Ketones (Negative) Urine Blood (Negative) Ur Leukocyte Esterase (Negative) Urine WBC (0-5) /hpf Urine Bacteria (None) /hpf Urine Mucus (None) /hpf Microbiology - Last 24 Hours (Table) 11/19/19 08:26 Blood Culture - Preliminary Blood No Growth after 24 hours 11/19/19 08:33 Blood Culture - Preliminary Blood No Growth after 24 hours 11/19/19 12:00 Urine Culture - Preliminary Urine,Voided Assessment and Plan Assessment: #1 symptomatic hypovolemic hypotonic hyponatremia. #2 anion gap metabolic acidosis secondary to lactic acidosis. #3 aspiration pneumonia on antibiotics #4 alcohol abuse #5 schizophrenia and chronic psychosis Plan: #1 goal sodium of 127 by end of the day until 8 PM. Sodium 129 at 10:30 in the morning. #2 start D5 water at 100 ML's an hour to lower the serum sodium. #3 monitor ins and outs. #4 if still rapidly correcting give 1 g of DDAVP.
--- NOTE | 2019-11-20 13:46 | P.PN ---
Subjective Progress Note Date: 11/20/19 On today's evaluation of 11/20/19, the patient is due can slightly more aroused and awake compared to yesterday. He talks slow. He is able to follow some simple commands and answer questions appropriately. We are still managing his sodium and nephrology is mainly involved in management of his hyponatremia. There was a rapid correction the sodium and accordingly, the patient will be given DDAVP. I've left management of hyponatremia to the nephrology team. The patient's sodium this morning was 125 and he subsequently came up to 129. He is making good amount of urine output. Creatinine is at 0.4. No significant respiratory distress. He has some scattered rhonchi. Limited congestion. Ch est x-ray is not showing any focal pulmonary infiltrates or pneumonias. No evidence of seizure activity. The patient is moving all 4 extremities for now. As mentioned earlier, the patient is known to have schizophrenia. Objective - Vital Signs Vital signs: Vital Signs Temp 98.6 F 11/20/19 08:00 Pulse 96 11/20/19 11:29 Resp 15 11/20/19 11:00 BP 135/95 11/20/19 11:00 Pulse Ox 99 11/20/19 11:00 Intake & Output 11/19/19 11/20/19 11/20/19 18:59 06:59 18:59 Intake Total 460 590 375 Output Total 1375 1895 740 Balance -915 -1305 -365 Weight 83.1 kg Intake: IV 460 490 375 .9 225 Dextrose 5% in Water 1, 420 450 150 000 ml @ 75 mls/hr IV . [id number] [facility] Rx#:[id number] Sodium Chloride 3%( 40 40 Hypertonic) 500 ml @ 20 mls/hr IV .Q24H [facility] Rx#: [id number] Intake, IV Titration 100 Amount levETIRAcetam IV 1,000 mg 100 In Saline 1 100ml.bag @ 400 mls/hr IVPB Q12HR [facility] Rx#:[id number] Output: Urine 1375 1895 740 Other: Voiding Method Indwelling Catheter Indwelling Catheter Indwelling Catheter # Bowel Movements 1 - Exam Gen. appearance is calm comfortable likely distress Head exam was generally normal. There was no scleral icterus or corneal arcus. Mucous membranes were moist. Neck was supple and without jugular venous distension, thyromegaly, or carotid bruits. Carotids were easily palpable bilaterally. There was no adenopathy. Lungs sounds are diminished and there is scattered rhonchi throughout the lung hurtado bilaterally Cardiac exam revealed the PMI to be normally situated and sized. The rhythm was regular and no extrasystoles were noted during several minutes of auscultation. The first and second heart sounds were normal and physiologic splitting of the second heart sound was noted. There were no murmurs, rubs, clicks, or gallops. Abdominal exam revealed normal bowel sounds. The abdomen was soft, non-tender, and without masses, organomegaly, or appreciable enlargement of the abdominal aorta. Examination of the extremities revealed easily palpable radial, femoral and pedal pulses. There was no cyanosis, clubbing or edema. Neurologically the patient is slow in answering questions. He remains still s ome degree of confusion. Is able to follow simple commands. He talks quite slow. There is improvement in level of alertness compared to yesterday. - Labs CBC & Chem 7: 11/19/19 05:33 11/20/19 10:33 Labs: Abnormal Lab Results - Last 24 Hours (Table) 11/19/19 11/19/19 11/20/19 Range/Units 15:54 20:11 00:53 Sodium 118 L* 120 L 122 L (137-145) mmol/L Carbon Dioxide (22-30) mmol/L BUN (9-20) mg/dL Creatinine (0.66-1.25) mg/dL Calcium (8.4-10.2) mg/dL Total Bilirubin (0.2-1.3) mg/dL AST (17-59) U/L Total Protein (6.3-8.2) g/dL 11/20/19 11/20/19 Range/Units 04:27 10:33 Sodium 125 L 129 L (137-145) mmol/L Carbon Dioxide 18 L (22-30) mmol/L BUN 3 L (9-20) mg/dL Creatinine 0.49 L (0.66-1.25) mg/dL Calcium 8.2 L (8.4-10.2) mg/dL Total Bilirubin 4.0 H (0.2-1.3) mg/dL AST 456 H (17-59) U/L Total Protein 6.2 L (6.3-8.2) g/dL Microbiology - Last 24 Hours (Table) 11/19/19 08:26 Blood Culture - Preliminary Blood No Growth after 24 hours 11/19/19 08:33 Blood Culture - Preliminary Blood No Growth after 24 hours 11/19/19 12:00 Urine Culture - Preliminary Urine,Voided Assessment and Plan Plan: 1 severe hyponatremia due to excessive fluid intake, possibility of psychogenic polydipsia in addition to excessive alcohol ingestion. The sodium level was gradually improving and it was up to 125 and he came up to 129. Nephrology is concerned about a rapid correction. We are providing this patient with the DDAV P. We'll monitor the sodium every 4 hours and will make the necessary adjustments. 2 seizure activity secondary to above 3 encephalopathy, related to metabolic encephalopathy with a possibility of a postictal state post seizure activity, the patient is improved and seems to be much more alert and awake. Unable to perform an EEG as the patient was having increased mobility and movement. Nevertheless, clinically, there are no seizure activity noted. 4 lactic acidosis, improved 5 emesis with questionable aspiration. No evidence of pneumonia on today's chest x-ray 6 schizophrenia with delusional ideations along with history of depression 7 alcoholism 8 history of chronic and ongoing psychosis 9 hypertension 10. 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 The patient is receiving DDAVP 1 g to prevent rapid correction of the sodium level. We'll monitor the sodium. Replace electrolytes IV Keppra IV Zosyn aspiration precautions Unable to complete the EEG. This will be done at the later stage. Clinically there are no seizure activity noted. Will need another psychiatric evaluation once more awake and alert and wants to metabolic issues have been treated and resolved we'll continue to follow.
[2019-11-21 04:42] LABS: ALT 54 U/L (4-49); AST 383 U/L (17-59); African American GFR (CKD) >90 (>60 ml/min/1.73 sqM); Albumin 3.3 g/dL (3.5-5.0); Alkaline Phosphatase 47 U/L (38-126); Anion Gap 7 mmol/L; Blood Urea Nitrogen 3 mg/dL (9-20); Calcium 8.1 mg/dL (8.4-10.2); Carbon Dioxide 20 mmol/L (22-30); Chloride 102 mmol/L (98-107); Glucose 104 mg/dL (74-99); Non-African American GFR(CKD) >90 (>60 ml/min/1.73 sqM); Potassium 3.1 mmol/L (3.5-5.1); Sodium 129 mmol/L (137-145); Total Bilirubin 2.4 mg/dL (0.2-1.3); Total Protein 5.5 g/dL (6.3-8.2)
[2019-11-21] MEDS ORDERED: Potassium Replacement Protocol 1 EACH MISC MISCELLANE PRN (06:26)
[2019-11-21] MEDS: POTASSIUM CHLORIDE 10 MEQ in WATER FOR INJECTION 1 100ML.BAG IVPB SCH ×4 (06:33→10:23)
[2019-11-21] MEDS: IPRATROPIUM-ALBUTEROL 3 ML NEB INHALATION SCH ×5 (07:05→19:27)
[2019-11-21] MEDS: PIPERACILLIN-TAZOBACTAM 3.375 GM in SODIUM CHLORIDE 0.9% 100 ML IVPB SCH (07:54)
[2019-11-21] MEDS: ENOXAPARIN 40 MG/0.4 ML SYRINGE SQ SCH (08:15)
[2019-11-21] MEDS: levETIRAcetam IV 1,000 MG in SALINE 1 100ML.BAG IVPB SCH ×2 (08:15→21:41)
[2019-11-21] MEDS: THIAMINE 100 MG/ML 2 ML VIAL IVP SCH (08:16)
[2019-11-21] MEDS: PANTOPRAZOLE 40 MG/10 ML VIAL IV SCH (08:16)
[2019-11-21] MEDS: DESMOPRESSIN ACETATE 4 MCG/ML VIAL (MDV) IV SCH (09:13)
[2019-11-21] MEDS ORDERED: fluPHENAZine DECANOATE 25 MG/ML 5ML MDV IM SCH (10:15)
[2019-11-21] MEDS: atenoloL 50 MG TAB PO SCH (10:40)
[2019-11-21 11:50] LABS: Potassium 4.1 mmol/L (3.5-5.1)
[2019-11-21 11:53] LABS: HCT 36.5 % (39.0-53.0); HGB 13.2 gm/dL (13.0-17.5); MCH 32.4 pg (25.0-35.0); MCHC 36.2 g/dL (31.0-37.0); MCV 89.5 fL (80.0-100.0); Mean Platelet Volume 6.9; Platelet Count 192 k/uL (150-450); RBC 4.08 m/uL (4.30-5.90); RDW 13.3 % (11.5-15.5); WBC 7.9 k/uL (3.8-10.6)
--- NOTE | 2019-11-21 12:21 | P.PN ---
Subjective Progress Note Date: 11/21/19 On today's evaluation of 11/21/2019, the patient is much more aroused and awake. No new complaints. He is interactive. He is slow in his speech but he is making much better since compared to yesterday and today before. Sodium level has improved and sodium level is up to 131. Nephrology was concerned about the rapid correction of the patient was given DDAVP. This slowed out of the rapid correction of the sodium level. Otherwise, the patient became well. The patient having respiratory difficulties and IV Zosyn were discontinued. No seizure activity has been noted. Is moving all 4 extremities. His psychiatric medication will be resumed. A swallow evaluation will be done and this was done the bedside and the patient will be off her diet if he passes a swallow evaluation. No other significant events otherwise for now. Objective - Vital Signs Vital signs: Vital Signs Temp 98.7 F 11/21/19 08:00 Pulse 91 11/21/19 10:00 Resp 20 11/21/19 10:00 BP 110/66 11/21/19 10:00 Pulse Ox 96 11/21/19 10:00 Intake & Output 11/20/19 11/21/19 11/21/19 18:59 06:59 18:59 Intake Total 1000 1200 100 Output Total 1225 511 256 Balance -225 689 -156 Weight 89.8 kg Intake: IV 1000 1100 .9 450 Dextrose 5% in Water 1, 1000 000 ml @ 100 mls/hr IV . Q10H [facility] Rx#:[id number] Dextrose 5% in Water 1, 550 100 000 ml @ 75 mls/hr IV . [id number] [facility] Rx#:[id number] Intake, IV Titration 100 100 Amount Dextrose 5% in Water 1, 100 000 ml @ 100 mls/hr IV . Q10H [facility] Rx#:[id number] Potassium Chloride 10 meq 100 In Water For Injection 1 100ml.bag @ 100 mls/hr IVPB Q1HR [facility] Rx#: [id number] Output: Urine 1225 511 256 Other: Voiding Method Indwelling Catheter Indwelling Catheter Indwelling Catheter # Bowel Movements 1 - Exam Gen. appearance is calm comfortable likely distress Head exam was generally normal. There was no scleral icterus or corneal arcus. Mucous membranes were moist. Neck was supple and without jugular venous distension, thyromegaly, or carotid bruits. Carotids were easily palpable bilaterally. There was no adenopathy. Lungs sounds are diminished and there is scattered rhonchi throughout the lung hurtado bilaterally Cardiac exam revealed the PMI to be normally situated and sized. The rhythm was regular and no extrasystoles were noted during several minutes of auscultation. The first and second heart sounds were normal and physiologic splitting of the second heart sound was noted. There were no murmurs, rubs, clicks, or gallops. Abdominal exam revealed normal bowel sounds. The abdomen was soft, non-tender, and without masses, organomegaly, or appreciable enlargement of the abdominal aorta. Examination of the extremities revealed easily palpable radial, femoral and pedal pulses. There was no cyanosis, clubbing or edema. Neurologically the patient is slow in answering questions. He seems to be much more awake and regaining his consciousness back slowly. Is able to follow simple commands. He talks quite slow. There is improvement in level of alertness compared to yesterday. Continues to show daily improvement in the level of alertness. - Labs CBC & Chem 7: 11/21/19 11:25 11/21/19 11:25 Labs: Abnormal Lab Results - Last 24 Hours (Table) 11/20/19 11/20/19 11/21/19 Range/Units 16:00 23:11 04:16 RBC (4.30-5.90) m/uL Hct (39.0-53.0) % Sodium 129 L 128 L 129 L (137-145) mmol/L Potassium 3.1 L (3.5-5.1) mmol/L Carbon Dioxide 20 L (22-30) mmol/L BUN 3 L (9-20) mg/dL Creatinine 0.51 L (0.66-1.25) mg/dL Glucose 104 H (74-99) mg/dL Calcium 8.1 L (8.4-10.2) mg/dL Total Bilirubin 2.4 H (0.2-1.3) mg/dL AST 383 H (17-59) U/L ALT 54 H (4-49) U/L Total Protein 5.5 L (6.3-8.2) g/dL Albumin 3.3 L (3.5-5.0) g/dL 11/21/19 11/21/19 11/21/19 Range/Units 08:25 11:25 11:25 RBC 4.08 L (4.30-5.90) m/uL Hct 36.5 L (39.0-53.0) % Sodium 131 L 131 L (137-145) mmol/L Potassium (3.5-5.1) mmol/L Carbon Dioxide (22-30) mmol/L BUN (9-20) mg/dL Creatinine (0.66-1.25) mg/dL Glucose (74-99) mg/dL Calcium (8.4-10.2) mg/dL Total Bilirubin (0.2-1.3) mg/dL AST (17-59) U/L ALT (4-49) U/L Total Protein (6.3-8.2) g/dL Albumin (3.5-5.0) g/dL Microbiology - Last 24 Hours (Table) 11/19/19 08:26 Blood Culture - Preliminary Blood No Growth after 48 hours 11/19/19 08:33 Blood Culture - Preliminary Blood No Growth after 48 hours 11/19/19 12:00 Urine Culture - Final Urine,Voided Assessment and Plan Plan: 1 severe hyponatremia due to excessive fluid intake, possibility of psychogenic polydipsia in addition to excessive alcohol ingestion. The sodium level is up to 131 and along with that there is improvement in the patient's mentation 2 seizure activity secondary to above 3 encephalopathy, related to metabolic encephalopathy with a possibility of a postictal state post seizure activity, the patient is improved and seems to be much more alert and awake. Unable to perform an EEG as the patient was having increased mobility and movement. Nevertheless, clinically, there are no seizure activity noted. Neurologist on the case and an EEG may be done probably within next 24-48 hours. 4 lactic acidosis, improved 5 emesis with questionable aspiration. No evidence of pneumonia on today's chest x-ray 6 schizophrenia with delusional ideations along with history of depression 7 alcoholism 8 history of chronic and ongoing psychosis 9 hypertension 10. Acid reflux Plan Monitor sodium level and tapered the recovery on a rapid correction of the sodium by DDAVP IV Keppra Stopped IV Zosyn aspiration precautions Unable to complete the EEG. This will be done at the later stage. Clinically there are no seizure activity noted. I would suggest doing an EEG by tomorrow meanwhile keeping the IV Keppra. Restart psychiatric medication including Topamax and Zyprexa we'll continue to follow.
--- NOTE | 2019-11-21 12:46 | P.PN ---
Subjective Progress Note Date: 11/21/19 This is a 54-year-old male patient of [facility]'s clinic with past medical history of hypertension, gastroesophageal reflux disease, anxiety, depression, schizophrenia, daily alcohol use. Patient had a hospitalization in October of this year for rectal bleeding and hemoglobin was stable at 13. He was seen by GI with no plan for intervention. He also had a recent psychiatric unit admission, involuntary. The patient follows with [facility] with Dr. Jacinto. The patient was admitted for psychosis which is a chronic issue. He is noted to consume 6-10 L of diet Coke per day and there was also concern that he was drinking alcohol. Patient presents to [facility] emergency center for evaluation of weakness, shaking, shortness of breath and vomiting. Patient apparently had 2 episodes of vomiting today. No fever or chills no chest pain. Apparently brother was with him in the emergency center and thought he was short of breath and had been breathing heavily all day. No cough or congestion. No rash. No known blood in his stools and no diarrhea. No recent medication changes. Blood pressure initially 190/108, heart rate running between 113 and 136. He was afebrile. EKG was sinus tachycardia. WBC 11.6, hemoglobin 14.4, platelet count 317. Sodium 113, potassium 3.6, chloride 82, CO2 7, BUN 2 and creatinine 0.4. Blood sugar 118. Lactic acid 7.2 and this morning at 1.1. Venous pH 7.23, pCO2 22 and bicarb 9. Serum osmolality 237, urine osmolality 314, urine sodium 98. Urinalysis negative for infection. Troponin negative. Total bilirubin 2.2. Calcium 7.9, phosphorus initially 2.7 repeated 1.5. Magnesium 1.2 with repeat at 2.1. Chest x-ray shows no acute cardiac pulmonary process. CAT scan of the brain was negative. In the emergency center, patient had mild tremor and possible seizure activity. Patient was admitted to the intensive care unit, started on 3% saline IV and started on CIWA protocol and IV Keppra. Patient is seen today in the intensive care unit. Patient is obtunded. cardiac monitor technician is sinus tachycardia. Consults in place with intensivists, neurology, nephrology and psychiatry. 11/19: Patient remains in the intensive care unit. He is an awake and alert but unable to answer questions. This morning, he had a first episode small amount of liquid stool. Heart rate in the 90s and low 100s, blood pressure 100/77, pulse ox is 100% on O2. Blood work at 4 AM revealed sodium 125, CO2 18, BUN 3 and creatinine 0.49. AST 456. Patient has been seen and followed by multiple consultants. Patient remains nothing by mouth and thiamine will be changed to IV. Speech therapy consult added which will see him on Friday. EEG was unable to be obtained. 11/20: Patient remains in the intensive care unit. He is following commands and more alert. He has had good urine output with 80 mL per hour. Urine is clear. Bedside swallow evaluation to be done. He has been afebrile, heart rate 76, blood pressure 138/101, pulse ox 97% on room air. Patient has been resumed on atenolol. Anticipate psych evaluation next 24 hours. Repeat blood work reveals sodium 129, potassium 3.1, chloride 102, CO2 20, BUN 3 and creatinine 0.51. Blood sugar 104. Total bilirubin 2.4, AST 383, ALT 54, alkaline phosphatase 47. Lata BC 7.9, hemoglobin 13.2, platelet count 192. Review of Systems Unable to be obtained due to patient's mental status. Physical Examination Gen: This is a 54-year-old male. No respiratory distress noted. HEENT: Head is atraumatic, normocephalic. Pupils equal, round, sluggish. Sclerae is anicteric. NECK: Supple. No JVD. No lymphadenopathy. No thyromegaly. LUNGS: Scattered rhonchi. No intercostal retractions. HEART: Regular rate and rhythm. No murmur. cardiac monitor technician is sinus tachycardia ABDOMEN: Soft. Bowel sounds are present. No masses. No tenderness. Cotton catheter draining clear raheel urine EXTREMITIES: No pedal edema. No calf tenderness. NEUROLOGICAL: Patient is awake and able to follow commands. Assessment and Plan 1. Metabolic encephalopathy secondary to hyponatremia, possible seizure, alcohol abuse. EEG was unable to be obtained. Neurology consult appreciated. 2. Aspiration pneumonia ruled out. Dr. Cannon consult appreciated. Patient will need speech therapy evaluation on Friday. 3. Severe metabolic acidosis, lactic acidosis. Consult with nephrology. 4. Severe hyponatremia most likely secondary to alcohol abuse and psychogenic polydipsia. Nephrology consult appreciated. 5. New onset seizure disorder possibly related to low sodium. Patient's been started on Keppra 1000 mg every 12 hours. Neurology consult appreciated. 6. Possible sepsis with aspiration pneumonia. Continue IV antibiotics. 7. History of alcohol abuse. Patient has been placed on the CIWA protocol. 8. 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 Psychiatric evaluation once patient stabilized. Anticipate need for mental health admission. 9. Hypertensive emergency. Patient started on hydralazine 10 mg IV every 4 hours for systolic blood pressure greater than 160. Atenolol resumed. 10. Gastroesophageal reflux disease. Protonix. 11. DVT prophylaxis. Lovenox. 11. COVID-19 infection not present. Discharge plan: To be determined. Patient may require mental health admission. Impression and plan of care have been directed as dictated by the signing physician. Alla Teran nurse practitioner acting as scribe for signing physici an. Objective - Vital Signs Vital signs: Vital Signs Temp 99.0 F 11/21/19 07:00 Pulse 86 11/21/19 07:00 Resp 11 L 11/21/19 07:00 BP 105/80 11/21/19 07:00 Pulse Ox 97 11/21/19 07:00 Intake & Output 11/20/19 11/21/19 11/21/19 18:59 06:59 18:59 Intake Total 1000 1200 100 Output Total 1225 511 41 Balance -225 689 59 Weight 89.8 kg Intake: IV 1000 1100 .9 450 Dextrose 5% in Water 1, 1000 000 ml @ 100 mls/hr IV . Q10H [facility] Rx#:[id number] Dextrose 5% in Water 1, 550 100 000 ml @ 75 mls/hr IV . [id number] [facility] Rx#:[id number] Intake, IV Titration 100 100 Amount Dextrose 5% in Water 1, 100 000 ml @ 100 mls/hr IV . Q10H [facility] Rx#:[id number] Potassium Chloride 10 meq 100 In Water For Injection 1 100ml.bag @ 100 mls/hr IVPB Q1HR [facility] Rx#: [id number] Output: Urine 1225 511 41 Other: Voiding Method Indwelling Catheter Indwelling Catheter # Bowel Movements 1 - Labs CBC & Chem 7: 11/21/19 11:25 11/21/19 11:25 Labs: Abnormal Lab Results - Last 24 Hours (Table) 07/18/20 07/18/20 07/18/20 Range/Units 10:33 16:00 23:11 Sodium 129 L 129 L 128 L (137-145) mmol/L Potassium (3.5-5.1) mmol/L Carbon Dioxide (22-30) mmol/L BUN (9-20) mg/dL Creatinine (0.66-1.25) mg/dL Glucose (74-99) mg/dL Calcium (8.4-10.2) mg/dL Total Bilirubin (0.2-1.3) mg/dL AST (17-59) U/L ALT (4-49) U/L Total Protein (6.3-8.2) g/dL Albumin (3.5-5.0) g/dL 11/21/19 11/21/19 Range/Units 04:16 08:25 Sodium 129 L 131 L (137-145) mmol/L Potassium 3.1 L (3.5-5.1) mmol/L Carbon Dioxide 20 L (22-30) mmol/L BUN 3 L (9-20) mg/dL Creatinine 0.51 L (0.66-1.25) mg/dL Glucose 104 H (74-99) mg/dL Calcium 8.1 L (8.4-10.2) mg/dL Total Bilirubin 2.4 H (0.2-1.3) mg/dL AST 383 H (17-59) U/L ALT 54 H (4-49) U/L Total Protein 5.5 L (6.3-8.2) g/dL Albumin 3.3 L (3.5-5.0) g/dL Microbiology - Last 24 Hours (Table) 11/19/19 12:00 Urine Culture - Final Urine,Voided 11/19/19 08:26 Blood Culture - Preliminary Blood No Growth after 24 hours 11/19/19 08:33 Blood Culture - Preliminary Blood No Growth after 24 hours
--- NOTE | 2019-11-21 19:06 | P.PN ---
Progress Note - Text Progress Note Date: 11/21/19 Interval history: Patient is seen in psychiatric follow-up in [facility]. Patient was found in his room lying in bed. He is able to maintain alertness.He makes reference to not being able to eat currently and also makes reference to a seizure.He currently is on Zyprexa 10 mg at bedtime. Mental status exam: He is able to maintain alertness. He describes his mood as pretty good. He does not display any agitation. He does not verbalize any thoughts of harm to self or others. He makes a reference to thanking me for not killing him in the hospital in the past, seems to relay that he had asked me to do this.When asked the date he reads the date off the patient board. Plan: Monitor for any psychotropic medication side effects. Monitor for any symptoms of psychosis. Continue to treat any possible causes of delirium. Psychiatry will be following up with the patient.
[2019-11-21] MEDS ORDERED: OLANZapine 10 MG TAB PO SCH (21:00)
[2019-11-22 05:35] VITALS: BP 125/82; PULSE 95; RESP 18; TEMP 99.2
[2019-11-22] MEDS: IPRATROPIUM-ALBUTEROL 3 ML NEB INHALATION SCH ×2 (07:05→10:51)
[2019-11-22 07:26] LABS: ALT 72 U/L (4-49); AST 483 U/L (17-59); African American GFR (CKD) >90 (>60 ml/min/1.73 sqM); Albumin 3.6 g/dL (3.5-5.0); Alkaline Phosphatase 53 U/L (38-126); Anion Gap 5 mmol/L; Blood Urea Nitrogen 6 mg/dL (9-20); Calcium 8.7 mg/dL (8.4-10.2); Carbon Dioxide 23 mmol/L (22-30); Chloride 109 mmol/L (98-107); Glucose 75 mg/dL (74-99); Non-African American GFR(CKD) >90 (>60 ml/min/1.73 sqM); Potassium 3.9 mmol/L (3.5-5.1); Sodium 137 mmol/L (137-145); Total Bilirubin 1.8 mg/dL (0.2-1.3); Total Protein 5.9 g/dL (6.3-8.2)
[2019-11-22 07:37] LABS: HCT 36.9 % (39.0-53.0); MCH 31.6 pg (25.0-35.0); MCHC 35.3 g/dL (31.0-37.0); MCV 89.7 fL (80.0-100.0); Mean Platelet Volume 7.3; Platelet Count 185 k/uL (150-450); RBC 4.12 m/uL (4.30-5.90); RDW 13.4 % (11.5-15.5)
[2019-11-22] MEDS ORDERED: DEXTROSE 5% IN WATER 1,000 ML IV SCH (08:45)
--- NOTE | 2019-11-22 09:57 | FL ---
EXAMINATION TYPE: FL barium swallow w video DATE OF EXAM: 11/22/2019 CLINICAL HISTORY: 54-year-old male with aspiration pneumonia. TECHNIQUE: Deglutition study is performed utilizing thin liquid barium, honey and nectar thick liqui d barium, barium thick applesauce, and barium coated cracker. Total fluoroscopy time: 1 minute 52 seconds. Total images: None. Real-time fluoroscopy support was provided to speech pathology. COMPARISON: None. FINDINGS: The oral phase show satisfactory initiation and propagation with all modalities tested. There is ini tial absence of epiglottic inversion with gradually progresses to a normal swallow. Mild vallecular a nd piriform sinus residuals are demonstrated. There is transient penetration of nectar residuals duri ng a swallow of honey thickened liquid. No other aspiration or penetration is seen with any other mod ality tested. IMPRESSION: 1. Initial absence of epiglottic inversion with gradually progresses to a normal swallow. 2. Mild vallecular and piriform sinus residuals. 3. An episode of transient penetration of vallecular residuals. 4. No other penetration or aspiration seen. Please refer to speech therapist notes for further details if necessary.
--- NOTE | 2019-11-22 10:48 | P.DS ---
Providers Date of admission: 11/18/19 21:59 Expected date of discharge: 11/22/19 Attending physician: Bert Carrillo Consults: 11/18/19 21:59 Consult Physician Routine Consulting Provider: Bert Calderon Consult Reason/Comments: psychiatricHx Do you want consulting provider notified?: Yes Consult Physician Routine Consulting Provider: Nat Silver Consult Reason/Comments: hyponatremia Do you want consulting provider notified?: Already Contacted Consult Physician Urgent Consulting Provider: Jeffry Cannon Consult Reason/Comments: known Do you want consulting provider notified?: Yes Consult Physician Urgent Consulting Provider: Tha Zelaya Consult Reason/Comments: sz Do you want consulting provider notified?: Yes Primary care physician: [facility] Course: This is a 54-year-old male patient of [facility] with past medical history of hypertension, gastroesophageal reflux disease, anxiety, depression, schizophrenia, daily alcohol use. Patient had a hospitalization in October of this year for rectal bleeding and hemoglobin was stable at 13. He was seen by GI with no plan for intervention. He also had a recent psychiatric unit admission, involuntary. The patient follows with [facility] with Dr. Jacinto. The patient was admitted for psychosis which is a chronic issue. He is noted to consume 6-10 L of diet Coke per day and there was also concern that he was drinking alcohol. Patient presents to [facility] emergency center for evaluation of weakness, shaking, shortness of breath and vomiting. Patient apparently had 2 episodes of vomiting today. No fever or chills no chest pain. Apparently brother was with him in the emergency center and thought he was short of breath and had been breathing heavily all day. No cough or congestion. No rash. No known blood in his stools and no diarrhea. No recent medication changes. Blood pressure initially 190/108, heart rate running between 113 and 136. He was afebrile. EKG was sinus tachycardia. WBC 11.6, hemoglobin 14.4, platelet count 317. Sodium 113, potassium 3.6, chloride 82, CO2 7, BUN 2 and creatinine 0.4. Blood sugar 118. Lactic acid 7.2 and this morning at 1.1. Venous pH 7.23, pCO2 22 and bicarb 9. Serum osmolality 237, urine osmolality 314, urine sodium 98. Urinalysis negative for infection. Troponin negative. Total bilirubin 2.2. Calcium 7.9, phosphorus initially 2.7 repeated 1.5. Magnesium 1.2 with repeat at 2.1. Chest x-ray shows no acute cardiac pulmonary process. CAT scan of the brain was negative. In the emergency center, patient had mild tremor and possible seizure activity. Patient was admitted to the intensive care unit, started on 3% saline IV and started on CIWA protocol and IV Keppra. Patient is seen today in the intensive care unit. Patient is obtunded. barber is sinus tachycardia. Consults in place with intensivists, neurology, nephrology and psychiatry. 11/19: Patient remains in the intensive care unit. He is an awake and alert but unable to answer questions. This morning, he had a first episode small amount of liquid stool. Heart rate in the 90s and low 100s, blood pressure 100/77, pulse ox is 100% on O2. Blood work at 4 AM revealed sodium 125, CO2 18, BUN 3 and creatinine 0.49. AST 456. Patient has been seen and followed by multiple consultants. Patient remains nothing by mouth and thiamine will be changed to IV. Speech therapy consult added which will see him on Friday. EEG was unable to be obtained. 11/20: Patient remains in the intensive care unit. He is following commands and more alert. He has had good urine output with 80 mL per hour. Urine is clear. Bedside swallow evaluation to be done. He has been afebrile, heart rate 76, blood pressure 138/101, pulse ox 97% on room air. Patient has been resumed on atenolol. Anticipate psych evaluation next 24 hours. Repeat blood work reveals sodium 129, potassium 3.1, chloride 102, CO2 20, BUN 3 and creatinine 0.51. Blood sugar 104. Total bilirubin 2.4, AST 383, ALT 54, alkaline phosphatase 47. Lata BC 7.9, hemoglobin 13.2, platelet count 192. 11/21: Patient is seen today on the med-surg floor. He is awake and alert, able to follow commands, able to provide sister's phone number. Patient's sister Nevaeh is his power of marine engineer and has been contacted via phone. She would like him to return home. She is requesting no Keppra for home and she discussed this with neurology apparently on Ihsan. We will plan to have recheck of his sodium level every 2 weeks for the next 3 months and sodium tablets been ordered. Patient underwent modified barium swallow this morning with speech therapy that revealed no aspiration. Cotton catheter will be removed. Repeat lab work reveals sodium 137, potassium 3.9, chloride 109, CO2 23, BUN 6 and creatinine 0.46. Total bilirubin 1.8, AST 483, ALT 72.. Patient will be discharged home today in stable condition. Assessment and Plan 1. Metabolic encephalopathy secondary to hyponatremia, possible seizure, alcohol abuse. 2. Aspiration pneumonia ruled out. 3. Severe metabolic acidosis, lactic acidosis. 4. Severe hyponatremia most likely secondary to alcohol abuse and psychogenic polydipsia. 5. New onset seizure disorder possibly related to low sodium. 6. Possible sepsis with aspiration pneumonia, ruled out 7. History of alcohol abuse. 8. 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 9. Hypertensive emergency. 10. Gastroesophageal reflux disease. 11. COVID-19 infection not present. Discharge plan: Return home Impression and plan of care have been directed as dictated by the signing physician. Alla Teran nurse practitioner acting as scribe for signing physician. Patient Condition at Discharge: Serious Plan - Discharge Summary Discharge Rx Participant: No New Discharge Prescriptions: New Sodium Chloride Tab 1 gm PO DAILY #30 tablet Continue Omeprazole 20 mg PO Q48H fluPHENAZine DECANOATE [Prolixin Decanoate] 25 mg IM Q7D #1 ml OLANZapine [ZyPREXA] 10 mg PO HS #30 tab Topiramate 50 mg PO DAILY #30 tab Atenolol [Tenormin] 50 mg PO DAILY Discharge Medication List Omeprazole 20 mg PO Q48H 05/14/18 [History] OLANZapine [ZyPREXA] 10 mg PO HS #30 tab 11/12/19 [Rx] Topiramate 50 mg PO DAILY #30 tab 11/12/19 [Rx] fluPHENAZine DECANOATE [Prolixin Decanoate] 25 mg IM Q7D #1 ml 11/12/19 [Rx] Atenolol [Tenormin] 50 mg PO DAILY 11/19/19 [History] Sodium Chloride Tab 1 gm PO DAILY #30 tablet 11/22/19 [Rx] Follow up Appointment(s)/Referral([facility] - [facility] Days Ambulatory/Diagnostic Orders: Basic Metabolic Panel [LAB.AMB] Location: None Selected Comprehensive Metabolic Panel [LAB.AMB] Location: None Selected Patient Instructions/Handouts: Hyponatremia (DC) Activity/Diet/Wound Care/Special Instructions: Have first blood draw on and if sodium is low, start sodium tabs. Discharge Disposition: HOME SELF-CARE
[2019-11-22] MEDS: DESMOPRESSIN ACETATE 4 MCG/ML VIAL (MDV) IV SCH (10:58)
[2019-11-22] MEDS: PANTOPRAZOLE 40 MG/10 ML VIAL IV SCH (10:59)
[2019-11-22] MEDS: ENOXAPARIN 40 MG/0.4 ML SYRINGE SQ SCH (10:59)
[2019-11-22] MEDS: atenoloL 50 MG TAB PO SCH (11:00)
[2019-11-22] MEDS: THIAMINE 100 MG/ML 2 ML VIAL IVP SCH (11:00)
--- NOTE | 2019-11-22 11:28 | P.PN ---
Subjective Progress Note Date: 11/22/19 Principal diagnosis: Severe hyponatremia, hypervolemic related to psychogenic polydipsia, seizure activity related to hyponatremia On today's evaluation of 11/21/2019, the patient is much more aroused and awake. No new complaints. He is interactive. He is slow in his speech but he is making much better since compared to yesterday and today before. Sodium level has improved and sodium level is up to 131. Nephrology was concerned about the rapid correction of the patient was given DDAVP. This slowed out of the rapid correction of the sodium level. Otherwise, the patient became well. The patient having respiratory difficulties and IV Zosyn were discontinued. No sei zure activity has been noted. Is moving all 4 extremities. His psychiatric medication will be resumed. A swallow evaluation will be done and this was done the bedside and the patient will be off her diet if he passes a swallow evaluation. No other significant events otherwise for now. On 11/22/2019 patient seen in follow-up on the general medical oncology floor, he is resting comfortably in bed room air pulse ox is 96%, hemodynamically he is stable, no fever or chills, no complaints of shortness of breath, no cough or congestion, breathing seems to be comfortable, patient is lying flat in bed, she states he is feeling tired, he is easily arousable to verbal stimuli, and he is answering questions appropriately. IV fluids are D5 water at a rate of 40 ML per hour, today's serum sodium is up to 137, up from 129 from yesterday's labs on the morning labs. Patient also receiving DDAVP 1 caron IV daily Nephrology is following, and managing the sodium. Today's labs have been reviewed showing white blood cell count is 6.0, hemoglobin of 13.0, potassium 3.9, chloride is 109, CO2 is 23, BUN is 6, creatinine 0.46. Total bilirubin is down to 1.8, AST is 483, ALT 72, alk phos is 53. Blood and urine cultures are negative. No seizure activity, patient remains on CIWA protocol, no evidence of DTs at this time Objective - Vital Signs Vital signs: Vital Signs Temp 99.2 F 11/22/19 05:35 Pulse 95 11/22/19 05:35 Resp 18 11/22/19 05:35 BP 125/82 11/22/19 05:35 Pulse Ox 96 11/22/19 05:35 Intake & Output 11/21/19 11/22/19 11/22/19 18:59 06:59 18:59 Intake Total 100 100 Output Total 1156 300 300 Balance -1056 -200 -300 Intake: Intake, IV Titration 100 100 Amount Potassium Chloride 10 meq 100 In Water For Injection 1 100ml.bag @ 100 mls/hr IVPB Q1HR [facility] Rx#: [id number] levETIRAcetam IV 1,000 mg 100 In Saline 1 100ml.bag @ 400 mls/hr IVPB Q12HR [facility] Rx#:[id number] Oral 0 Output: Urine 1156 300 300 Other: Voiding Method Indwelling Catheter Indwelling Catheter Indwelling Catheter - Exam GENERAL EXAM: Somnolent, but easily arousable to verbal stimuli, 54-year-old white male, resting flat in bed on room air, speech is slow, but not slurred, understandable, patient states she is feeling fatigued, but no acute distress, with a pulse ox of 96%, comfortable in no apparent distress. HEAD: Normocephalic/atraumatic. EYES: Normal reaction of pupils, equal size. Conjunctiva pink, sclera white. NOSE: Clear with pink turbinates. THROAT: No erythema or exudates. NECK: No masses, no JVD, no thyroid enlargement, no adenopathy. CHEST: No chest wall deformity. Symmetrical expansion. LUNGS: Equal air entry with no crackles, wheeze, rhonchi or dullness. CVS: Regular rate and rhythm, normal S1 and S2, no gallops, no murmurs, no rubs ABDOMEN: Soft, nontender. No hepatosplenomegaly, normal bowel sounds, no guarding or rigidity. EXTREMITIES: No clubbing, no edema, no cyanosis, 2+ pulses and upper and lower extremities. MUSCULOSKELETAL: Muscle strength and tone normal. SPINE: No scoliosis or deformity SKIN: No rashes CENTRAL NERVOUS SYSTEM: Alert and oriented -3. No focal deficits, tone is normal in all 4 extremities. - Labs CBC & Chem 7: 11/22/19 06:59 11/22/19 06:59 Labs: Abnormal Lab Results - Last 24 Hours (Table) 11/21/19 11/21/19 11/21/19 Range/Units 11:25 11:25 16:50 RBC 4.08 L (4.30-5.90) m/uL Hct 36.5 L (39.0-53.0) % Sodium 131 L 133 L (137-145) mmol/L Chloride (98-107) mmol/L BUN (9-20) mg/dL Creatinine (0.66-1.25) mg/dL Total Bilirubin (0.2-1.3) mg/dL AST (17-59) U/L ALT (4-49) U/L Total Protein (6.3-8.2) g/dL 11/22/19 11/22/19 Range/Units 06:59 06:59 RBC 4.12 L (4.30-5.90) m/uL Hct 36.9 L (39.0-53.0) % Sodium (137-145) mmol/L Chloride 109 H (98-107) mmol/L BUN 6 L (9-20) mg/dL Creatinine 0.46 L (0.66-1.25) mg/dL Total Bilirubin 1.8 H (0.2-1.3) mg/dL AST 483 H (17-59) U/L ALT 72 H (4-49) U/L Total Protein 5.9 L (6.3-8.2) g/dL Microbiology - Last 24 Hours (Table) 11/19/19 08:26 Blood Culture - Preliminary Blood No Growth after 72 hours 11/19/19 08:33 Blood Culture - Preliminary Blood No Growth after 72 hours Assessment and Plan Plan: Assessment: 1 severe hyponatremia due to excessive fluid intake, possibility of psychogenic polydipsia in addition to excessive alcohol ingestion. The sodium level is up to 137 and along with that there is improvement in the patient's mentation 2 seizure activity secondary to above 3 encephalopathy, related to metabolic encephalopathy with a possibility of a postictal state post seizure activity, the patient is improved and seems to be much more alert and awake. Unable to perform an EEG as the patient was having increased mobility and movement. Nevertheless, clinically, there are no seizure activity noted. Neurologist on the case and an EEG may be done probably within next 24-48 hours. 4 lactic acidosis, improved 5 emesis with questionable aspiration. No evidence of pneumonia on today's chest x-ray 6 schizophrenia with delusional ideations along with history of depression 7 alcoholism 8 history of chronic and ongoing psychosis 9 hypertension 10. Acid reflux Plan: Patient is clinically stable, no recurrence of seizures, mentation is improving, patient is answering questions appropriately. He denies any acute complaints, no shortness of breath cough or congestion, vital signs have been stable, today's labs have been noted, nephrology is on an managing the serum sodium, patient is planning on returning home after discharge according to his sister who is his power of admitted attorneys. No other acute events overnight. Increase activity as tolerated. Stable for discharge from pulmonary perspective I performed a history & physical examination of the patient and discussed their management with my nurse practitioner, Maria Del Rosario Velazquez. I reviewed the nurse practitioner's note and agree with the documented findings and plan of care. Lung sounds are positive for clear breath sounds. The findings and the impression was discussed with the patient. I attest to the documentation by the nurse practitioner. Time with Patient: Less than 30
--- NOTE | 2019-11-22 12:19 | PN ---
PROGRESS NOTE Patient is seen for followup for hyponatremia. His serum sodium has improved to 137 today. He was 129 yesterday. Currently, patient is not eating much. He did receive a dose of DDAVP today as well to prevent rapid increase in the serum sodium level. PHYSICAL EXAMINATION: On examination today, blood pressure was 125/82, heart rate 95 per minute, patient is afebrile. Examination of the heart S1, S2. Examination of the lungs, decreased breath sounds at bases. Abdomen is soft, nontender. Examination lower extremities shows no evidence of edema. LABS: Show sodium of 137, potassium 3.9, chloride 109, BUN 6, creatinine 0.46. ASSESSMENT: Hyponatremia with rapid increase in serum sodium, status post 3% saline currently status post DDAVP. Serum sodium was 137 today. I will switch the IV fluids to D5W and repeat serum sodium again this afternoon. Avoid salt tablets given the rapid increase in serum sodium level. DC the DDAVP if the patient is being discharged. The patient will need close followup as outpatient. MMODL / IJN: [id number] /
== END 2019-11-22 15:25 | disposition home or self-care (01) | DRG 640 ==
LOC: EC 19:44 → 2SICU 21:59 → 5NMEDONC 11-21 14:24
PROVIDERS: ADMIT Internal Medicine Geriatric Medicine; ATTEND Internal Medicine Geriatric Medicine
DX: E87.1 Hypo-osmolality and hyponatremia (principal); G93.41 Metabolic encephalopathy; I16.1 Hypertensive emergency; F10.20 Alcohol dependence, uncomplicated; F20.9 Schizophrenia, unspecified; F41.9 Anxiety disorder, unspecified; G40.909 Epilepsy, unspecified, not intractable, without status epilepticus; I10 Essential (primary) hypertension; K21.9 Gastro-esophageal reflux disease without esophagitis; E86.0 Dehydration; E86.1 Hypovolemia; E87.2 Acidosis; R63.1 Polydipsia; Z79.899 Other long term (current) drug therapy; Z82.49 Family history of ischemic heart disease and other diseases of the circulatory system; I83.90 Asymptomatic varicose veins of unspecified lower extremity; Z11.59 Encounter for screening for other viral diseases; Z87.19 Personal history of other diseases of the digestive system; E87.79 Other fluid overload; Z83.2 Family history of diseases of the blood and blood-forming organs and certain disorders involving the immune mechanism; F32.9 Major depressive disorder, single episode, unspecified
CPT/HCPCS: 36415; 70450; 71045; 71046; 74230; 80048; 80053; 81001; 82075; 82803; 83605; 83735; 83930; 83935; 84100; 84132; 84295; 84300; 84443; 84484; 85025; 85027; 85610; 85730; 87040; 87086; 93005; 94640; 96361; 96365; 96366; 96372; 96375; 99291

== ENCOUNTER 2021-01-04 19:35 | Emergency (ER) | payer MEDICARE, OTHER ==
--- NOTE | 2021-01-04 22:24 | ED ---
Psych HPI - General Source: patient, police, RN notes reviewed Mode of arrival: ambulatory - History of Present Illness MD Complaint: other <Humza Fernandez - Last Filed: 01/04/21 23:19> - History of Present Illness MD Complaint: altered mental status Associated Psychiatric Symptoms: racing thoughts Quality: intermittent Worsens With: none Associated Symptoms: denies other symptoms Treatments Prior to Arrival: placed on mental health hold <Chu Muir - Last Filed: 01/05/21 02:50> - General Chief Complaint: Psychiatric Symptoms Stated Complaint: Petition Time Seen by Provider: 01/04/21 21:00 - History of Present Illness Initial Comments: 55-year-old male with a history of alcoholism history depression who is brought in by police tonight and a pickup order is also petitioned is a history of schi zophrenia who is dressed and formal tired today he states he will be tortured and killed is stated he was dressed [id number]. (Humza Fernandez) - Related Data Home Medications Medication Instructions Recorded Confirmed Omeprazole 20 mg PO Q48H 05/14/18 01/04/21 atenoloL [Tenormin] 50 mg PO BID 11/19/19 01/04/21 Acetaminophen [Tylenol] 650 mg PO TID PRN 01/04/21 01/04/21 Aspirin EC [Ecotrin Low Dose] 81 mg PO DAILY 01/04/21 01/04/21 Benztropine Mesylate [Cogentin] 2 mg PO BID 01/04/21 01/04/21 Cholecalciferol (Vitamin D3) 125 mcg PO DAILY 01/04/21 01/04/21 [Vitamin D3 (125 MCG = 5,000 IU)] fluPHENAZine decanoate [Prolixin 50 mg IM Q14D 01/04/21 01/04/21 Decanoate] lisinopriL [Zestril] 20 mg PO HS 01/04/21 01/04/21 Allergies Allergy/AdvReac Type Severity Reaction Status Date / Time No Known Allergies Allergy Verified 01/04/21 21:55 Review of Systems ROS Other: All systems not noted in ROS Statement are negative. <Humza Fernandez - Last Filed: 01/04/21 23:19> ROS Other: All systems not noted in ROS Statement are negative. <Chu Muir - Last Filed: 01/05/21 02:50> ROS Statement: Those systems with pertinent positive or pertinent negative responses have been documented in the HPI. Past Medical History Past Medical History: GERD/Reflux, Hypertension Additional Past Medical History / Comment(s): VARICOSE VEINS. History of Any Multi-Drug Resistant Organisms: None Reported Past Surgical History: No Surgical Hx Reported Additional Past Surgical History / Comment(s): TOOTH EXTRACTIONS Past Anesthesia/Blood Transfusion Reactions: No Reported Reaction Additional Past Anesthesia/Blood Transfusion Reaction / Comment(s): Never had Past Psychological History: Anxiety, Depression, Schizophrenia Smoking Status: Never smoker Past Alcohol Use History: None Reported, Occasional Past Drug Use History: None Reported - Past Family History Father Family Medical History: Myocardial Infarction ([place]) Additional Family Medical History / Comment(s): AT AGE 58 FROM [place] Mother Family Medical History: Deep Vein Thrombosis (DVT), Hypertension Additional Family Medical History / Comment(s): PRIMARY PULMONARY HYPERTENSION <Humza Fernandez - Last Filed: 01/04/21 23:19> General Exam General appearance: alert Head exam: Present: atraumatic, normocephalic, normal inspection Eye exam: Present: normal appearance, PERRL, EOMI. Absent: scleral icterus, conjunctival injection, periorbital swelling ENT exam: Present: normal exam, mucous membranes moist Neck exam: Present: normal inspection. Absent: tenderness, meningismus, lymphadenopathy Respiratory exam: Present: normal lung sounds bilaterally. Absent: respiratory distress, wheezes, rales, rhonchi, stridor Cardiovascular Exam: Present: regular rate, normal rhythm, normal heart sounds. Absent: systolic murmur, diastolic murmur, rubs, gallop, clicks GI/Abdominal exam: Present: soft, normal bowel sounds. Absent: distended, tenderness, guarding, rebound, rigid Extremities exam: Present: normal inspection, full ROM, normal capillary refill. Absent: tenderness, pedal edema, joint swelling, calf tenderness Back exam: Present: normal inspection Neurological exam: Present: alert, oriented X3, CN II-XII intact Psychiatric exam: Present: normal mood, flat affect, other (Demonstrate some flight of ideas) Skin exam: Present: warm, dry, intact, normal color. Absent: rash <Humza Fernandez - Last Filed: 09/02/21 23:19> - General Exam Comments Initial Comments: This is a well-developed well-nourished awake alert oriented times female (JimHumza) Course <Humza Fernandez - Last Filed: 01/04/21 23:19> <Chu Muir - Last Filed: 01/05/21 02:50> Vital Signs 01/04/21 20:24 Temperature 98.7 F Pulse Rate 115 H Respiratory 18 Rate Blood Pressure 163/100 O2 Sat by Pulse 96 Oximetry - Reevaluation(s) Reevaluation #1: 01/04/21 23:19 Petition and pickup order reviewed. Labs pending patient was endorsed to Dr. Muir at our shift change (Humza Fernandez) Reevaluation #2: 01/05/21 02:49 Record is reviewed (Chu Muir) Reevaluation #3: 01/05/21 02:49 Medically clear for psychiatric evaluation (Chu Muir) Medical Decision Making - Lab Data Result diagrams: 01/04/21 23:40 01/04/21 23:40 <Chu Muir - Last Filed: 01/05/21 02:50> - Medical Decision Making 55 male to the ER for evaluation patient is deemed safe for discharge home (Chu Muir) - Lab Data Lab Results 01/04/21 01/04/21 01/04/21 Range/Units 23:40 23:40 23:40 WBC 5.5 (3.8-10.6) k/uL RBC 4.00 L (4.30-5.90) m/uL Hgb 14.1 (13.0-17.5) gm/dL Hct 38.6 L (39.0-53.0) % MCV 96.5 (80.0-100.0) fL MCH 35.2 H (25.0-35.0) pg MCHC 36.5 (31.0-37.0) g/dL RDW 14.7 (11.5-15.5) % Plt Count 242 (150-450) k/uL MPV 7.7 Neutrophils % 64 % Lymphocytes % 23 % Monocytes % 8 % Eosinophils % 2 % Basophils % 1 % Neutrophils # 3.5 (1.3-7.7) k/uL Lymphocytes # 1.3 (1.0-4.8) k/uL Monocytes # 0.4 (0-1.0) k/uL Eosinophils # 0.1 (0-0.7) k/uL Basophils # 0.1 (0-0.2) k/uL Poikilocytosis Moderate Sodium 137 (137-145) mmol/L Potassium 3.2 L (3.5-5.1) mmol/L Chloride 100 (98-107) mmol/L Carbon Dioxide 25 (22-30) mmol/L Anion Gap 12 mmol/L BUN 3 L (9-20) mg/dL Creatinine 0.60 L (0.66-1.25) mg/dL Est GFR (CKD-EPI)AfAm >90 (>60 ml/min/1.73 sqM) Est GFR (CKD-EPI)NonAf >90 (>60 ml/min/1.73 sqM) Glucose 102 H (74-99) mg/dL Calcium 9.4 (8.4-10.2) mg/dL Magnesium 1.7 (1.6-2.3) mg/dL Total Bilirubin 0.8 (0.2-1.3) mg/dL AST 81 H (17-59) U/L ALT 53 H (4-49) U/L Alkaline Phosphatase 82 (38-126) U/L Total Protein 6.7 (6.3-8.2) g/dL Albumin 4.2 (3.5-5.0) g/dL Lipase 132 (23-300) U/L Urine Opiates Screen Not Detected (NotDetected) Ur Oxycodone Screen Not Detected (NotDetected) Urine Methadone Screen Not Detected (NotDetected) Ur Propoxyphene Screen Not Detected (NotDetected) Ur Barbiturates Screen Not Detected (NotDetected) U Tricyclic Antidepress Not Detected (NotDetected) Ur Phencyclidine Scrn Not Detected (NotDetected) Ur Amphetamines Screen Not Detected (NotDetected) U Methamphetamines Scrn Not Detected (NotDetected) U Benzodiazepines Scrn Not Detected (NotDetected) Urine Cocaine Screen Not Detected (NotDetected) U Marijuana (THC) Screen Not Detected (NotDetected) Disposition <Humza Fernandez - Last Filed: 01/04/21 23:19> Is patient prescribed a controlled substance at d/c from ED?: No <Chu Muir - Last Filed: 01/05/21 02:50> Clinical Impression: Schizophrenia, paranoid, chronic Disposition: HOME SELF-CARE Condition: Fair Instructions (If sedation given, give patient instructions): Mood Disorders (ED) [facility]errals: [facility] [Primary Care Provider] - 1-2 days
[2021-01-04 23:52] LABS: Basophils # (A) 0.1 k/uL (0-0.2); Basophils % (A) 1 %; Eosinophils # (A) 0.1 k/uL (0-0.7); Eosinophils % (A) 2 %; HCT 38.6 % (39.0-53.0); HGB 14.1 gm/dL (13.0-17.5); Lymphocytes # (A) 1.3 k/uL (1.0-4.8); Lymphocytes % (A) 23 %; MCH 35.2 pg (25.0-35.0); MCHC 36.5 g/dL (31.0-37.0); MCV 96.5 fL (80.0-100.0); Mean Platelet Volume 7.7; Monocytes # (A) 0.4 k/uL (0-1.0); Monocytes % (A) 8 %; Neutrophils # (A) 3.5 k/uL (1.3-7.7); Neutrophils % (A) 64 %; Platelet Count 242 k/uL (150-450); Poikilocytosis Moderate; RDW 14.7 % (11.5-15.5); WBC 5.5 k/uL (3.8-10.6)
[2021-01-05] LABS: ALT 53 U/L (4-49); AST 81 U/L (17-59); African American GFR (CKD) >90 (>60 ml/min/1.73 sqM); Albumin 4.2 g/dL (3.5-5.0); Alkaline Phosphatase 82 U/L (38-126); Anion Gap 12 mmol/L; Blood Urea Nitrogen 3 mg/dL (9-20); Calcium 9.4 mg/dL (8.4-10.2); Carbon Dioxide 25 mmol/L (22-30); Chloride 100 mmol/L (98-107); Glucose 102 mg/dL (74-99); Lipase 132 U/L (23-300); Magnesium 1.7 mg/dL (1.6-2.3); Non-African American GFR(CKD) >90 (>60 ml/min/1.73 sqM); Potassium 3.2 mmol/L (3.5-5.1); Sodium 137 mmol/L (137-145); Total Bilirubin 0.8 mg/dL (0.2-1.3); Total Protein 6.7 g/dL (6.3-8.2)
[2021-01-05 00:24] LABS: Amphetamine Screen,Urine Not Detected (NotDetected); Barbiturate Screen,Urine Not Detected (NotDetected); Benzodiazepines Screen,Urine Not Detected (NotDetected); Cocaine Screen,Urine Not Detected (NotDetected); Methadone Screen, Urine Not Detected (NotDetected); Opiate Screen,Urine Not Detected (NotDetected); Oxycodone Screen, Urine Not Detected (NotDetected); Phencyclidine Screen,Urine Not Detected (NotDetected); Tricyclic Antidepressant,Urine Not Detected (NotDetected); Urn Cannabinoid Scrn Not Detected (NotDetected)
[2021-01-05] MEDS ORDERED: POTASSIUM CHLORIDE ER 20 MEQ TAB.ER PO STA ×2 (00:41)
[2021-01-05 03:23] VITALS: BP 148/87; PULSE 91; RESP 20; TEMP 98.4
== END 2021-01-05 03:48 | disposition home or self-care (01) ==
LOC: EC 19:35
DX: F20.0 Paranoid schizophrenia (principal); K21.9 Gastro-esophageal reflux disease without esophagitis; I10 Essential (primary) hypertension; F41.9 Anxiety disorder, unspecified; F32.9 Major depressive disorder, single episode, unspecified; Z79.899 Other long term (current) drug therapy
CPT/HCPCS: 36415; 80053; 80306; 82075; 83690; 83735; 85025; 99284

== ENCOUNTER 2021-01-18 12:53 | Inpatient (IN) | payer MEDICARE, MEDICAID ==
[2021-01-18] MEDS ORDERED: SODIUM CHLORIDE 0.9% 1,000 ML IV ONE (13:45)
--- NOTE | 2021-01-18 13:47 | ED ---
General Adult HPI - General Chief complaint: Psychiatric Symptoms Stated complaint: Petition Time Seen by Provider: 01/18/21 13:20 Source: patient, RN notes reviewed, old records reviewed Mode of arrival: ambulatory Limitations: no limitations - History of Present Illness Initial comments: This is a 55-year-old male whose has a past medical history significant for schizophrenia. Patient is brought in today on a petition because he has not taken his medication he thinks that the pharmacy and charges and insurance difficulties or after. Patient states he agrees he is not taking his medications because he believes that her place. Patient denies suicidal or homicidal ideations. Patient states she has no physical complaints today. Patient denies shortness of breath difficult breathing or palpitations or chest pain. Patient denies any recent fever chills or cough. Patient states she's COVID vaccine. Patient denies abdominal pain patient denies nausea vomiting diarrhea. Patient states he drinks rum every day but he does loosen a lot of w ater because he doesn't like the taste. - Related Data Home Medications Medication Instructions Recorded Confirmed Omeprazole 20 mg PO Q48H 05/14/18 01/18/21 atenoloL [Tenormin] 50 mg PO BID 11/19/19 01/18/21 Acetaminophen [Tylenol] 650 mg PO TID PRN 01/04/21 01/18/21 Aspirin EC [Ecotrin Low Dose] 81 mg PO DAILY 01/04/21 01/18/21 Benztropine Mesylate [Cogentin] 2 mg PO BID 01/04/21 01/18/21 Cholecalciferol (Vitamin D3) 125 mcg PO Q48H 01/04/21 01/18/21 [Vitamin D3 (125 MCG = 5,000 IU)] fluPHENAZine decanoate [Prolixin 50 mg IM Q14D 01/04/21 01/18/21 Decanoate] lisinopriL [Zestril] 20 mg PO HS 01/04/21 01/18/21 Allergies Allergy/AdvReac Type Severity Reaction Status Date / Time No Known Allergies Allergy Verified 01/18/21 13:21 Review of Systems ROS Statement: Those systems with pertinent positive or pertinent negative responses have been documented in the HPI. ROS Other: All systems not noted in ROS Statement are negative. Past Medical History Past Medical History: GERD/Reflux, Hypertension Additional Past Medical History / Comment(s): VARICOSE VEINS. History of Any Multi-Drug Resistant Organisms: None Reported Past Surgical History: No Surgical Hx Reported Additional Past Surgical History / Comment(s): TOOTH EXTRACTIONS Past Anesthesia/Blood Transfusion Reactions: No Reported Reaction Additional Past Anesthesia/Blood Transfusion Reaction / Comment(s): Never had Past Psychological History: Anxiety, Depression, Schizophrenia Smoking Status: Never smoker Past Alcohol Use History: None Reported, Occasional Past Drug Use History: None Reported - Past Family History Father Family Medical History: Myocardial Infarction ([place]) Additional Family Medical History / Comment(s): AT AGE 58 FROM [place] Mother Family Medical History: Deep Vein Thrombosis (DVT), Hypertension Additional Family Medical History / Comment(s): PRIMARY PULMONARY HYPERTENSION General Exam - General Exam Comments Initial Comments: GENERAL: Patient is well-developed and well-nourished. Patient is nontoxic and well- hydrated and is in no acute distress. ENT: Neck is soft and supple. No significant lymphadenopathy is noted. Oropharynx is clear. Moist mucous membranes. Neck has full range of motion without eliciting any pain. EYES: The sclera were anicteric and conjunctiva were pink and moist. Extraocular movements were intact and pupils were equal round and reactive to light. Eyelids were unremarkable. PULMONARY: Unlabored respirations. Good breath sounds bilaterally. No audible rales rhonchi or wheezing was noted. CARDIOVASCULAR: There is a regular rate and rhythm without any murmurs gallops or rubs. ABDOMEN: Soft and nontender with normal bowel sounds. SKIN: Skin is clear with no lesions or rashes and otherwise unremarkable. NEUROLOGIC: Patient is alert and oriented x3. Cranial nerves II through XII are grossly int act. Motor and sensory are also intact. Normal speech, volume and content. Symmetrical smile. MUSCULOSKELETAL: Normal extremities with adequate strength and full range of motion. LYMPHATICS: No significant lymphadenopathy is noted PSYCHIATRIC: Patient states his medications for poison. Patient states insurance companies are after him as well as the local judges and the pharmacy. Limitations: no limitations Course Vital Signs 01/18/21 13:18 Temperature 97.7 F Pulse Rate 102 H Respiratory 18 Rate Blood Pressure 154/101 O2 Sat by Pulse 97 Oximetry Medical Decision Making - Medical Decision Making I filled out a clinical certification on this patient. EPS evaluated the patient and determined that the patient needs to be admitted. - Lab Data Result diagrams: 01/18/21 14:00 01/18/21 14:00 Lab Results 01/18/21 01/18/21 01/18/21 Range/Units 14:00 14:00 14:00 WBC 8.3 (3.8-10.6) k/uL RBC 4.39 (4.30-5.90) m/uL Hgb 15.4 (13.0-17.5) gm/dL Hct 41.1 (39.0-53.0) % MCV 93.6 (80.0-100.0) fL MCH 35.2 H (25.0-35.0) pg MCHC 37.6 H (31.0-37.0) g/dL RDW 12.3 (11.5-15.5) % Plt Count 239 (150-450) k/uL MPV 7.8 Neutrophils % 71 % Lymphocytes % 15 % Monocytes % 9 % Eosinophils % 1 % Basophils % 1 % Neutrophils # 5.8 (1.3-7.7) k/uL Lymphocytes # 1.3 (1.0-4.8) k/uL Monocytes # 0.7 (0-1.0) k/uL Eosinophils # 0.1 (0-0.7) k/uL Basophils # 0.0 (0-0.2) k/uL Hyperchromasia Slight Sodium 131 L (137-145) mmol/L Potassium 3.7 (3.5-5.1) mmol/L Chloride 95 L (98-107) mmol/L Carbon Dioxide 24 (22-30) mmol/L Anion Gap 12 mmol/L BUN 4 L (9-20) mg/dL Creatinine 0.57 L (0.66-1.25) mg/dL Est GFR (CKD-EPI)AfAm >90 (>60 ml/min/1.73 sqM) Est GFR (CKD-EPI)NonAf >90 (>60 ml/min/1.73 sqM) Glucose 84 (74-99) mg/dL Calcium 9.4 (8.4-10.2) mg/dL Magnesium 1.7 (1.6-2.3) mg/dL Total Bilirubin 1.6 H (0.2-1.3) mg/dL AST 75 H (17-59) U/L ALT 51 H (4-49) U/L Alkaline Phosphatase 67 (38-126) U/L Total Protein 7.2 (6.3-8.2) g/dL Albumin 4.4 (3.5-5.0) g/dL Urine Opiates Screen Not Detected (NotDetected) Ur Oxycodone Screen Not Detected (NotDetected) Urine Methadone Screen Not Detected (NotDetected) Ur Propoxyphene Screen Not Detected (NotDetected) Ur Barbiturates Screen Not Detected (NotDetected) U Tricyclic Antidepress Not Detected (NotDetected) Ur Phencyclidine Scrn Not Detected (NotDetected) Ur Amphetamines Screen Not Detected (NotDetected) U Methamphetamines Scrn Not Detected (NotDetected) U Benzodiazepines Scrn Not Detected (NotDetected) Urine Cocaine Screen Not Detected (NotDetected) U Marijuana (THC) Screen Not Detected (NotDetected) Disposition Clinical Impression: Psychoses Disposition: ADMITTED IP TO THIS [facility] Referrals: [facility] [Primary Care Provider] - 1-2 days Time of Disposition: 16:53
[2021-01-18 14:17] LABS: Basophils % (A) 1 %; Eosinophils # (A) 0.1 k/uL (0-0.7); Eosinophils % (A) 1 %; HCT 41.1 % (39.0-53.0); HGB 15.4 gm/dL (13.0-17.5); Hyperchromasia Slight; Lymphocytes # (A) 1.3 k/uL (1.0-4.8); Lymphocytes % (A) 15 %; MCH 35.2 pg (25.0-35.0); MCHC 37.6 g/dL (31.0-37.0); MCV 93.6 fL (80.0-100.0); Mean Platelet Volume 7.8; Monocytes # (A) 0.7 k/uL (0-1.0); Monocytes % (A) 9 %; Neutrophils # (A) 5.8 k/uL (1.3-7.7); Neutrophils % (A) 71 %; Platelet Count 239 k/uL (150-450); RBC 4.39 m/uL (4.30-5.90); RDW 12.3 % (11.5-15.5); WBC 8.3 k/uL (3.8-10.6)
[2021-01-18 14:36] LABS: ALT 51 U/L (4-49); AST 75 U/L (17-59); African American GFR (CKD) >90 (>60 ml/min/1.73 sqM); Albumin 4.4 g/dL (3.5-5.0); Alkaline Phosphatase 67 U/L (38-126); Anion Gap 12 mmol/L; Blood Urea Nitrogen 4 mg/dL (9-20); Calcium 9.4 mg/dL (8.4-10.2); Carbon Dioxide 24 mmol/L (22-30); Chloride 95 mmol/L (98-107); Glucose 84 mg/dL (74-99); Magnesium 1.7 mg/dL (1.6-2.3); Non-African American GFR(CKD) >90 (>60 ml/min/1.73 sqM); Potassium 3.7 mmol/L (3.5-5.1); Sodium 131 mmol/L (137-145); Total Bilirubin 1.6 mg/dL (0.2-1.3); Total Protein 7.2 g/dL (6.3-8.2)
[2021-01-18 14:58] LABS: Amphetamine Screen,Urine Not Detected (NotDetected); Barbiturate Screen,Urine Not Detected (NotDetected); Benzodiazepines Screen,Urine Not Detected (NotDetected); Cocaine Screen,Urine Not Detected (NotDetected); Methadone Screen, Urine Not Detected (NotDetected); Opiate Screen,Urine Not Detected (NotDetected); Oxycodone Screen, Urine Not Detected (NotDetected); Phencyclidine Screen,Urine Not Detected (NotDetected); Tricyclic Antidepressant,Urine Not Detected (NotDetected); Urn Cannabinoid Scrn Not Detected (NotDetected)
[2021-01-18] MEDS ORDERED: hydrALAZINE HCL 20 MG/ML 1 ML VIAL IVP STA (16:57)
[2021-01-18] MEDS ORDERED: MAGNESIUM HYDROXIDE 2,400 MG/10 ML CUP PO PRN (19:38)
[2021-01-18] MEDS ORDERED: ACETAMINOPHEN TAB 325 MG TAB PO PRN (19:38)
[2021-01-18] MEDS ORDERED: MAG HYDROX/AL HYDROX/SIMETH 30 ML CUP PO PRN (19:38)
[2021-01-18] MEDS ORDERED: LORazepam 2 MG/ML INJ IM PRN (19:44)
[2021-01-18] MEDS ORDERED: HALOPERIDOL LACTATE 5 MG/ML 1 ML VIAL IM PRN (19:45)
[2021-01-18] MEDS ORDERED: haloperidoL 5 MG TAB PO PRN (19:45)
[2021-01-18] MEDS: LORazepam 1 MG TAB PO PRN (19:59)
[2021-01-18] MEDS: SODIUM CHLORIDE TAB 1 GM TAB PO SCH (20:43)
[2021-01-18] MEDS: lisinopriL 20 MG TAB PO SCH (20:43)
[2021-01-18] MEDS: atenoloL 50 MG TAB PO SCH (20:43)
[2021-01-18] MEDS ORDERED: diazePAM 5 MG TAB PO SCH (22:00)
[2021-01-18] MEDS: diazePAM 5 MG TAB PO SCH (22:26)
--- NOTE | 2021-01-19 02:31 | P.PN ---
Progress Note - Text Progress Note Date: 01/18/21 patient with severe alcohol abuse, heavily sedated and currently sleeping
[2021-01-19] MEDS: ASPIRIN 81 MG PO SCH (08:47)
[2021-01-19] MEDS: SODIUM CHLORIDE TAB 1 GM TAB PO SCH ×2 (08:48→21:17)
[2021-01-19] MEDS: CHOLECALCIFEROL 25 MCG (1000 IU) TABLET PO SCH (08:48)
[2021-01-19] MEDS: diazePAM 5 MG TAB PO SCH ×3 (08:48→21:17)
[2021-01-19] MEDS: atenoloL 50 MG TAB PO SCH ×2 (08:48→21:16)
[2021-01-19] MEDS: PANTOPRAZOLE 40 MG TABLET PO SCH (08:48)
[2021-01-19 15:50] LABS: Hemoglobin A1C 4.6 % (4.0-6.0)
[2021-01-19] MEDS: BENZTROPINE MESYLATE 1 MG TAB PO SCH (21:16)
[2021-01-19] MEDS: lisinopriL 20 MG TAB PO SCH (21:17)
[2021-01-20 04:54] LABS: Chol/HDL Ratio 1.53; Cholesterol 81 mg/dL (0-200); Triglycerides <50.0 mg/dL (0.0-149.0)
--- NOTE | 2021-01-20 06:59 | P.MDCNMH ---
History of Present Illness H&P Date: 01/20/21 Chief Complaint: Medical eval 55-year-old male with schizophrenia Patient comes in due to noncompliance with his medications he had a pickup order from [facility] due to noncompliance. He denies that and reports that [facility] doesn't listen to him and his needs and he thinks that there are some issues with pharmacy and insurance. Otherwise he is feeling fine denies any chest pain or trouble breathing denies any fevers or chills. Denies any abdominal pain nausea or vomiting His main concern is dry right foot with a crack at the base of the right big toe no bleeding no history of diabetes he denies any tobacco smoking or drug abuse he does admit to occasional alcohol He denies any suicidal or homicidal ideation Review of Systems Pertinent positives as noted in HPI. All other systems were reviewed and are negative Past Medical History Past Medical History: GERD/Reflux, Hypertension Additional Past Medical History / Comment(s): VARICOSE VEINS. History of Any Multi-Drug Resistant Organisms: None Reported Past Surgical History: No Surgical Hx Reported Additional Past Surgical History / Comment(s): TOOTH EXTRACTIONS Past Anesthesia/Blood Transfusion Reactions: No Reported Reaction Additional Past Anesthesia/Blood Transfusion Reaction / Comment(s): Never had Past Psychological History: Anxiety, Depression, Schizophrenia Smoking Status: Never smoker Past Alcohol Use History: None Reported, Occasional Past Drug Use History: None Reported - Past Family History Father Family Medical History: Myocardial Infarction ([place]) Additional Family Medical History / Comment(s): AT AGE 58 FROM [place] Mother Family Medical History: Deep Vein Thrombosis (DVT), Hypertension Additional Family Medical History / Comment(s): PRIMARY PULMONARY HYPERTENSION Medications and Allergies Home Medications Medication Instructions Recorded Confirmed Type Omeprazole 20 mg PO Q48H 05/14/18 01/18/21 History atenoloL [Tenormin] 50 mg PO BID 11/19/19 01/18/21 History Acetaminophen [Tylenol] 650 mg PO TID PRN 01/04/21 01/18/21 History Aspirin EC [Ecotrin Low Dose] 81 mg PO DAILY 01/04/21 01/18/21 History Benztropine Mesylate [Cogentin] 2 mg PO BID 01/04/21 01/18/21 History Cholecalciferol (Vitamin D3) 125 mcg PO Q48H 01/04/21 01/18/21 History [Vitamin D3 (125 MCG = 5,000 IU)] fluPHENAZine decanoate [Prolixin 50 mg IM Q14D 01/04/21 01/18/21 History Decanoate] lisinopriL [Zestril] 20 mg PO HS 01/04/21 01/18/21 History Allergies Allergy/AdvReac Type Severity Reaction Status Date / Time No Known Allergies Allergy Verified 01/18/21 13:21 Physical Exam Vitals: Vital Signs Pulse Resp BP 01/19/21 16:15 73 151/95 01/19/21 08:51 94 16 124/70 01/19/21 08:46 94 20 124/70 Constitutional: No acute distress, patient looks anxious Eyes: Anicteric sclerae, moist conjunctiva, Pupils equal round reactive to light ENMT: NC/AT Oropharynx clear, no erythema, or exudates Neck: Supple, FROM, no masses, or JVD No carotid bruits No thyromegaly Lungs: Clear to auscultation Clear to percussion Normal respiratory effort, no accessory muscle use Cardiovascular: Heart regular in rate and rhythm, No murmurs, gallops, or rubs No peripheral edema Abdominal: Soft Nontender, no guarding, rebound or rigidity Abdomen moving with respiration Normoactive bowel sounds No hepatomegaly, No splenomegaly No palpable mass No abdominal wall hernia noted Skin: Scaling and dryness of the sole of the right foot no bleeding no blisters with skin breaking at the base of the right big toe. Patient refuses to show me his left foot claiming that it started bothering him Extremities: No digital cyanosis No clubbing Pedal pulses intact and symmetrical Radial pulses intact and symmetrical No calf tenderness Psychiatric: Alert and oriented to person, place and time Neuro Muscles Strength 5/5 in all 4 extremities Sensation to light touch grossly present throughout Cranial nerves II-XII grossly intact No focal sensory deficits Lymphatics: no palpable cervical or supraclavicular , or inguinal lymph nodes Cranial Nerve Examination - Cranial Nerves Cranial Nerve II- Optic: Intact Cranial Nerve III- Oculomotor: Intact Cranial Nerve IV- Trochlear: Intact Cranial Nerve V- Trigeminal: Intact Cranial Nerve - Abducens: Intact Cranial Nerve VII- Facial: Intact Cranial Nerve VIII- Auditory: Intact Cranial Nerve IX- Glossopharyngeal: Intact Cranial Nerve X- Vagus: Intact Cranial Nerve XI- Accessory: Intact Cranial Nerve XII- Hypoglossal: Intact Results CBC & Chem 7: 01/18/21 14:00 01/18/21 14:00 Assessment and Plan Assessment: Schizophrenia with noncompliance Management per psych Athlete's foot of the right foot Use nystatin 3 times a day Labs reviewed Thank you for allowing us to participate in the care of this patient. We will follow peripherally. Do not hesitate to contact us with questions. Someone can be reached from the [facility] hospitalist group at all hours of the day at [phone].
--- NOTE | 2021-01-20 07:29 | P.HP ---
Psychiatric H&P - . H&P Date: 01/19/21 History & Physical: IDENTIFYING Data: Mr. Tin Askew is a 55-year-old single male who currently lives by himself at his own residence, [facility], has psychiatric history of schizophrenia, and medical history of or tension. The patient has been admitted to our inpatient psychiatric services after been transferred from [facility]. Patient was initially brought to ED by EMS for psychiatric evaluation. The patient has been admitted on involuntary basis to our service. CHIEF COMPLAINT: "I don't need to be here, it's a mistake." HISTORY OF PRESENT ILLNESS: The patient was long history of schizophrenia who was brought to the hospital with a petition that he refused to take his psychiatric medications because he thought the medications are poisoned, and was feeling that he would be tortured and killed. According to evaluation today, patient reports that he is misdiagnosed and the reason for this hospitalization that he is" the wrong prisoner", and he was on "arrested" referring to a local safety council director "Diane" wants to put him in the hospital. He reports that this safety council director wants to tell him something. Patient stated that he does not want to take any medications especially his psych meds and will not take any medications after discharge. He denies auditory or visual hallucinations, denies any suicidal or homicidal ideation and reports "I can entertain myself". Denies any symptoms of anxiety, depression, severe mood swings, anger, or agitation. Patient appears responding to internal stimuli, and was very superficial in his answers was very flat affect. He was alert and fully oriented but delusional about his meds that they are rat poisoned and and he couldn't explain any more. He believes certain pharmacist and a pharmaceutical companies boys on his medications and mess up with the label on his meds to kill him. He believes that he will be killed if he takes these medications. At one point he reports will not take any medications including his blood pressure medications, but he agreed to take his blood pressure medication from the nurses. Patient reports that he doesn't feel safe about how the medications handled and could be a lot of money bribing pharmaceutical company to kill him. PAST PSYCHIATRIC HISTORY: Previous diagnoses: Schizophrenia Previous psychiatric hospitalizations: Reports previous multiple hospitalization at this unit. Previous suicide attempts: Denies. Previous outpatient psychiatric treatment: Currently connected with [facility], but reports the staff are not cooperative with him. Current psychiatric medications: Prolixin 50 mg IM every 2 weeks, and Cogentin 2 mg twice daily. Patient refused to sign consent taking medications and he refused to discuss any other alternative.. Previous medication trials: unknown. SUBSTANCE ABUSE HISTORY: Nicotine: Denies using tobacco products. Alcohol: Reports drinking alcohol occasionally but sometimes drink more." Drinking could be bad for 1 week but I better not to tell you anymore" Patient denies using any street drugs. Social History: Patient was born in [place] and raised up by his Parents. Housing: Currently lives by himself. The patient has no children. Work history: Currently unemployed on SSD. Education: Patient reports attaining an educational level of high school and some college. Patient denies any academic problems during score time History of psychological trauma: Patient denies any history of psychological trauma FAMILY HISTORY: Psychiatric Illness: Denies any family history of mental illness. Substance abuse: Denies any family history of substance problems. Completed Suicides: Reports one of his cousins committed suicide by CO poisoning. Medical History: Hypertension MENTAL STATUS EVALUATION: Appearance: Appears stated age, groomed, average body built, and no specific features. Gait/ posture: Steady gait, normal arm swinging, no abnormal movements, with relaxed posture. Attitude and Behavior: Not cooperative, not related to the interviewer in socially accepted manner, poor eye contact during course of interview. Motor Activity: Decreased psychomotor activity. Speech: spontaneous, Slow rate, rhythm, and articulation. Low volume. Not pressured. Language: Articulating, naming objects and repeat phrases. Mood: Fine Affect: Flat. Thought process: Poverty of thoughts. Thought content: Paranoid delusions, denies suicidal thoughts, denies homicidal thoughts, Denies intentions, or plans. Perception: Denies any hallucinations but apparently RIS Alertness: No impairment. Concentration: Impaired. Orientation: Alert and fully oriented Insight regarding psychiatric condition: Limited, refused treatment. Judgment regarding daily activities and social situation: limited, refused medications Impulse control: fair Strengths: Stable general medical condition. Stable housing, Stable financially. Challenges: Poor compliance with treatment. Probably alcohol use disorder Allergies Allergy/AdvReac Type Severity Reaction Status Date / Time No Known Allergies Allergy Verified 01/18/21 13:21 Vital Signs Temp 97.7 F 01/18/21 13:18 Pulse 73 01/19/21 16:15 Resp 16 01/19/21 08:51 BP 151/95 01/19/21 16:15 Pulse Ox 97 01/18/21 13:18 Intake & Output 01/18/21 01/19/21 01/19/21 18:59 06:59 18:59 Weight 95.254 kg Review of Lab results: Laboratory Last Values WBC 8.3 k/uL (3.8-10.6) 01/18/21 14:00 RBC 4.39 m/uL (4.30-5.90) 01/18/21 14:00 Hgb 15.4 gm/dL (13.0-17.5) 01/18/21 14:00 Hct 41.1 % (39.0-53.0) 01/18/21 14:00 MCV 93.6 fL (80.0-100.0) 01/18/21 14:00 MCH 35.2 pg (25.0-35.0) H 01/18/21 14:00 MCHC 37.6 g/dL (31.0-37.0) H 01/18/21 14:00 RDW 12.3 % (11.5-15.5) 01/18/21 14:00 Plt Count 239 k/uL (150-450) 01/18/21 14:00 MPV 7.8 01/18/21 14:00 Neutrophils % 71 % 01/18/21 14:00 Lymphocytes % 15 % 01/18/21 14:00 Monocytes % 9 % 01/18/21 14:00 Eosinophils % 1 % 01/18/21 14:00 Basophils % 1 % 01/18/21 14:00 Neutrophils # 5.8 k/uL (1.3-7.7) 01/18/21 14:00 Lymphocytes # 1.3 k/uL (1.0-4.8) 01/18/21 14:00 Monocytes # 0.7 k/uL (0-1.0) 01/18/21 14:00 Eosinophils # 0.1 k/uL (0-0.7) 01/18/21 14:00 Basophils # 0.0 k/uL (0-0.2) 01/18/21 14:00 Hyperchromasia Slight 01/18/21 14:00 Sodium 131 mmol/L (137-145) L 01/18/21 14:00 Potassium 3.7 mmol/L (3.5-5.1) 01/18/21 14:00 Chloride 95 mmol/L (98-107) L 01/18/21 14:00 Carbon Dioxide 24 mmol/L (22-30) 01/18/21 14:00 Anion Gap 12 mmol/L 01/18/21 14:00 BUN 4 mg/dL (9-20) L 01/18/21 14:00 Creatinine 0.57 mg/dL (0.66-1.25) L 01/18/21 14:00 Est GFR (CKD-EPI)AfAm >90 (>60 ml/min/1.73 sqM) 01/18/21 14:00 Est GFR (CKD-EPI)NonAf >90 (>60 ml/min/1.73 sqM) 01/18/21 14:00 Glucose 84 mg/dL (74-99) 01/18/21 14:[address] Glu mg/dL 85 01/19/21 07:11 Hemoglobin A1c 4.6 % (4.0-6.0) 01/19/21 07:11 Calcium 9.4 mg/dL (8.4-10.2) 01/18/21 14:00 Magnesium 1.7 mg/dL (1.6-2.3) 01/18/21 14:00 Total Bilirubin 1.6 mg/dL (0.2-1.3) H 01/18/21 14:00 AST 75 U/L (17-59) H 01/18/21 14:00 ALT 51 U/L (4-49) H 01/18/21 14:00 Alkaline Phosphatase 67 U/L (38-126) 01/18/21 14:00 Total Protein 7.2 g/dL (6.3-8.2) 01/18/21 14:00 Albumin 4.4 g/dL (3.5-5.0) 01/18/21 14:00 TSH 1.230 mIU/L (0.465-4.680) 01/19/21 07:11 Urine Opiates Screen Not Detected (NotDetected) 01/18/21 14:00 Ur Oxycodone Screen Not Detected (NotDetected) 01/18/21 14:00 Urine Methadone Screen Not Detected (NotDetected) 01/18/21 14:00 Ur Propoxyphene Screen Not Detected (NotDetected) 01/18/21 14:00 Ur Barbiturates Screen Not Detected (NotDetected) 01/18/21 14:00 U Tricyclic Antidepress Not Detected (NotDetected) 01/18/21 14:00 Ur Phencyclidine Scrn Not Detected (NotDetected) 01/18/21 14:00 Ur Amphetamines Screen Not Detected (NotDetected) 01/18/21 14:00 U Methamphetamines Scrn Not Detected (NotDetected) 01/18/21 14:00 U Benzodiazepines Scrn Not Detected (NotDetected) 01/18/21 14:00 Urine Cocaine Screen Not Detected (NotDetected) 01/18/21 14:00 U Marijuana (THC) Screen Not Detected (NotDetected) 01/18/21 14:00 Coronavirus (PCR) Not Detected (Not Detectd) 01/18/21 16:50 Assessment: Schizophrenia. Rule out alcohol use disorder. TREATMENT PLAN/RECOMMENDATIONS: Medical Decision making: The patient presented with paranoid delusions, refused to take his medications, and delusions about would be killed and tortured. The patient at high risk to hurt himself if he is not in the inpatient setting. The patient's psychiatric symptoms are not stable and he needs further management of psychiatric medications and further planning for discharge. Therefore, inpatient level of care is needed. Continue the patient inpatient for safety. Continue the patient under 15 minutes safe check for safety. Continue treatment of psychotic symptoms. Continue monitoring for alcohol withdrawal, and when necessary benzodiazepines for withdrawal symptoms The patient will also be provided with individual therapy, group therapy, substance abuse counseling, gain insight, and coping skills. Consider medical consultation if any acute medical issue arises. Medications: Patient refused to discuss any psychiatric medications and stated will not take any medications. Patient agreed well restart home medications Prolixin for psychotic symptoms, and Cogentin to prevent EPS Prognosis is guarded, contingent on patient has been compliant with his medications and has been followed up closely with outpatient mental health provider after discharge. The patient will be assessed on daily basis and will be discharged back to his outpatient mental health provider upon stabilization. EXPECTED LENGTH OF STAY: 7 days. 01/19/21 17:06
[2021-01-20] MEDS: SODIUM CHLORIDE TAB 1 GM TAB PO SCH ×2 (08:02→21:14)
[2021-01-20] MEDS: BENZTROPINE MESYLATE 1 MG TAB PO SCH ×2 (08:02→21:14)
[2021-01-20] MEDS: ASPIRIN 81 MG PO SCH (08:02)
[2021-01-20] MEDS: NYSTATIN 100,000UNIT/GM CREAM 30 GM TUBE TOPICAL SCH ×3 (08:03→21:16)
[2021-01-20] MEDS: diazePAM 5 MG TAB PO SCH ×3 (08:03→21:15)
[2021-01-20] MEDS: atenoloL 50 MG TAB PO SCH ×2 (08:03→21:14)
[2021-01-20] MEDS: lisinopriL 20 MG TAB PO SCH (21:14)
--- NOTE | 2021-01-21 00:56 | P.PN ---
Progress Note - Text Progress Note Date: 01/20/21 Chief complaint:" I am fine" Subjective: The patient has been seen today as follow-up, chart reviewed, case discussed with the treatment team. Patient slept about 6 hours last night. Patient has been going to some groups and other unit activities. Patient reports good appetite. The patient is compliant with his medications and denies any adverse reactions. Patient reports his mood is better today and denies feeling depressed, hopeless or suicidal. He denies any severe mood swings, irritability or agitation. No manic symptoms reported or noticed. Patient states still having auditory hallucinations "hearing expert and intelligent voices" but didn't elaborate more about the voices. He denies any commands. Pt is still paranoid and isolates himself in his room for most of the time with minimal interaction and doesn't socialize. Objective: Vitals has been reviewed. MENTAL STATUS EVALUATION: Appearance: Appears stated age, groomed, average body built, and no specific features. Gait/ posture: Steady gait, normal arm swinging, no abnormal movements, with relaxed posture. Attitude and Behavior: Not cooperative, not related to the interviewer in socially accepted manner, poor eye contact during course of interview. Motor Activity: Decreased psychomotor activity. Speech: spontaneous, Slow rate, rhythm, and articulation. Low volume. Not pressured. Language: Articulating, naming objects and repeat phrases. Mood: Fine Affect: Flat. Thought process: Poverty of thoughts. Thought content: Paranoid delusions, denies suicidal thoughts, denies homicidal thoughts, Denies intentions, or plans. Perception: Denies any hallucinations but apparently RIS Alertness: No impairment. Concentration: Impaired. Orientation: Alert and fully oriented Insight regarding psychiatric condition: Limited, refused treatment. Judgment regarding daily activities and social situation: limited, refused medications Impulse control: fair Assessment: Schizophrenia. Rule out alcohol use disorder. TREATMENT PLAN/RECOMMENDATIONS: Continue inpatient psychiatric hospitalization due to need for further monitoring and stabilization and patient still meets criteria for inpatient psych hospitalization Continue treatment of psychotic symptoms. Continue monitoring for alcohol withdrawal, and when necessary benzodiazepines for withdrawal symptoms Precautions: Continue 15 minutes check for safety. The patient will also be provided with individual therapy, group therapy, substance abuse counseling, gain insight, and coping skills. Consider medical consultation if any acute medical issue arises. Medications: Patient refused to discuss any psychiatric medications and stated will not take any medications. Patient agreed to restart home medication Prolixin for psychotic symptoms, and Cogentin to prevent EPS. Continue PRN psychiatric medications for agitation and anxiety. Continue non-psychiatric medications as per medical team recommendations. Discharge patient to OUTPATIENT services upon a stabilization
[2021-01-21] MEDS: diazePAM 5 MG TAB PO SCH ×3 (08:44→21:00)
[2021-01-21] MEDS: CHOLECALCIFEROL 25 MCG (1000 IU) TABLET PO SCH (08:44)
[2021-01-21] MEDS: ASPIRIN 81 MG PO SCH (08:45)
[2021-01-21] MEDS: BENZTROPINE MESYLATE 1 MG TAB PO SCH ×2 (08:45→20:57)
[2021-01-21] MEDS: PANTOPRAZOLE 40 MG TABLET PO SCH (08:45)
[2021-01-21] MEDS: atenoloL 50 MG TAB PO SCH ×2 (08:45→20:57)
[2021-01-21] MEDS: SODIUM CHLORIDE TAB 1 GM TAB PO SCH ×2 (08:45→20:57)
[2021-01-21] MEDS: NYSTATIN 100,000UNIT/GM CREAM 30 GM TUBE TOPICAL SCH ×3 (08:49→20:59)
[2021-01-21] MEDS: lisinopriL 20 MG TAB PO SCH (20:57)
--- NOTE | 2021-01-21 23:52 | P.PN ---
Progress Note - Text Progress Note Date: 01/21/21 Subjective: Patient was seen today as a cross coverage for Dr. Flores. The patient was evaluated, chart reviewed, case discussed with the treatment team. Patient reports better sleep last night, and appetite was reported as " fair". Patient has not been going to many groups and other unit activities. The patient is compliant with his medications and denies any adverse reactions. Patient reports feeling "ok" but he was superficial in his answers. He continues to present par anoid but denies any hallucinations. No manic symptoms reported or noticed. Objective: Vitals has been reviewed. MENTAL STATUS EVALUATION: Appearance: Appears stated age, groomed, average body built, and no specific features. Gait/ posture: Steady gait, normal arm swinging, no abnormal movements, with relaxed posture. Attitude and Behavior: Not cooperative, not related to the interviewer in socially accepted manner, poor eye contact during course of interview. Motor Activity: Decreased psychomotor activity. Speech: spontaneous, Slow rate, rhythm, and articulation. Low volume. Not pr essured. Language: Articulating, naming objects and repeat phrases. Mood: Fine Affect: Flat. Thought process: Poverty of thoughts. Thought content: Paranoid delusions, denies suicidal thoughts, denies homicidal thoughts, Denies intentions, or plans. Perception: Denies any hallucinations but apparently RIS Alertness: No impairment. Concentration: Impaired. Orientation: Alert and fully oriented Insight regarding psychiatric condition: Limited, refused treatment. Judgment regarding daily activities and social situation: limited, refused medications Impulse control: fair Assessment: Schizophrenia. Rule out alcohol use disorder. TREATMENT PLAN/RECOMMENDATIONS: Continue inpatient psychiatric hospitalization due to need for further monitoring and stabilization and patient still meets criteria for inpatient psych hospitalization Continue treatment of psychotic symptoms. Continue monitoring for alcohol withdrawal, and when necessary benzodiazepines for withdrawal symptoms Precautions: Continue 15 minutes check for safety. The patient will also be provided with individual therapy, group therapy, substance abuse counseling, gain insight, and coping skills. Consider medical consultation if any acute medical issue arises. Medications: Patient refused to discuss any psychiatric medications and stated will not take any medications. Patient agreed to restart home medication Prolixin for psychotic symptoms, and Cogentin to prevent EPS. Continue PRN psychiatric medications for agitation and anxiety. Continue non-psychiatric medications as per medical team recommendations. Discharge patient to OUTPATIENT services upon a stabilization
[2021-01-22] MEDS: ASPIRIN 81 MG PO SCH (09:05)
[2021-01-22] MEDS: SODIUM CHLORIDE TAB 1 GM TAB PO SCH ×2 (09:05→21:29)
[2021-01-22] MEDS: atenoloL 50 MG TAB PO SCH ×2 (09:05→21:29)
[2021-01-22] MEDS: BENZTROPINE MESYLATE 1 MG TAB PO SCH ×2 (09:05→21:28)
[2021-01-22] MEDS: diazePAM 5 MG TAB PO SCH ×3 (09:06→21:29)
[2021-01-22] MEDS: NYSTATIN 100,000UNIT/GM CREAM 30 GM TUBE TOPICAL SCH ×3 (09:06→21:32)
[2021-01-22 09:11] VITALS: RESP 16
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
[2021-01-22] MEDS: LORazepam 1 MG TAB PO PRN (17:18)
[2021-01-22] MEDS: lisinopriL 20 MG TAB PO SCH (21:28)
[2021-01-23] MEDS: diazePAM 5 MG TAB PO SCH ×2 (08:34→21:14)
[2021-01-23] MEDS: PANTOPRAZOLE 40 MG TABLET PO SCH (08:35)
[2021-01-23] MEDS: CHOLECALCIFEROL 25 MCG (1000 IU) TABLET PO SCH (08:35)
[2021-01-23] MEDS: ASPIRIN 81 MG PO SCH (08:35)
[2021-01-23] MEDS: atenoloL 50 MG TAB PO SCH ×2 (08:35→21:15)
[2021-01-23] MEDS: SODIUM CHLORIDE TAB 1 GM TAB PO SCH ×2 (08:35→21:15)
[2021-01-23] MEDS: BENZTROPINE MESYLATE 1 MG TAB PO SCH ×2 (08:35→21:14)
[2021-01-23] MEDS: NYSTATIN 100,000UNIT/GM CREAM 30 GM TUBE TOPICAL SCH ×3 (08:35→21:13)
--- NOTE | 2021-01-23 11:53 | P.PN ---
Progress Note - Text Progress Note Date: 01/23/21 Interval History: Patient was seen wandering the hallways and was directable and agreeable to sp tyler with card writer hand in the office. The patient does report that he is feeling okay. Despite this, the patient continues to endorse significant psychotic symptoms. Patient reports that he is expressing auditory hallucinations which she describes as "expert, professional, and ." He continues endorse ideas of reference but refused to elaborate on the content of what is said to him or hurt by him. He reports that this is "top secret information." He has been in adherent with his medications and is not endorsing any significant side effects at this time. The patient is inquiring about discharge and was informed that he is likely to receive Prolixin Decanoate prior to discharge. He is not reporting any significant issues regarding his sleep or his appetite at this time. He is denying any suicidal or homicidal ideation, intention, and/or plan. Mental Status Exam: General Appearance: Patient appears to be stated age is alert, directable, and cooperative. Behavior: Patient is calmly seated without any agitated behavior. Speech: Patient's speech is fluent and nonpressured. Mood/Affect: Mood is "okay," Affect is Flat. Suicidality/Homicidality: Patient denies having any suicidal or homicidal ideation intent or plan. Perceptions: Patient is endorsing auditory hallucinations but no visualizations at this time. Though content/process: Bizarre and paranoid delusional thought content evident. Thought process was a flight of ideas and magical thinking. Ideas of reference. Memory and concentration: Grossly intact for the purposes of this session Judgment and insight: Very poor Vital Signs Temp 97.5 F L 01/22/21 09:10 Pulse 78 01/22/21 21:31 Resp 16 01/22/21 09:10 BP 163/102 01/22/21 21:31 Pulse Ox 98 01/22/21 09:10 Assessment Schizophrenia Alcohol use disorder Plan: -Patient continues to meet criteria for inpatient psychiatric admission for symptom stabilization and safety. Patient is currently under court order. -Medications: Increase Prolixin to 10 mg by mouth twice a day for psychosis. The patient was to receive Prolixin Decanoate 50 mg IM on 01/09/2021, but did not show up for his appointment. We will adminsiter Prolixin Decanoate before discharge. -When necessary Ativan and Haldol for agitation/aggression. -NRT - nicotine patch -SW on board for discharge planning. Encouraged the patient to participate in milieu.
[2021-01-23] MEDS: lisinopriL 20 MG TAB PO SCH (21:14)
[2021-01-24] MEDS: atenoloL 50 MG TAB PO SCH ×2 (08:40→20:21)
[2021-01-24] MEDS: ASPIRIN 81 MG PO SCH (08:40)
[2021-01-24] MEDS: BENZTROPINE MESYLATE 1 MG TAB PO SCH ×2 (08:40→20:21)
[2021-01-24] MEDS: NYSTATIN 100,000UNIT/GM CREAM 30 GM TUBE TOPICAL SCH ×3 (08:40→20:22)
[2021-01-24] MEDS: SODIUM CHLORIDE TAB 1 GM TAB PO SCH ×2 (08:40→20:21)
[2021-01-24] MEDS: diazePAM 5 MG TAB PO SCH ×2 (08:41→20:21)
--- NOTE | 2021-01-24 12:11 | P.PN ---
Progress Note - Text Progress Note Date: 01/24/21 Interval History: Patient was seen sleeping in group and was directable and agreeable to speak with loan underwriter in the office. The patient reports that he is feeling "tired." He continues to endorse auditory hallucinations in the form of "professionals and personnel" contacting him. Despite this, the patient states that the content is nothing out of the ordinary but refuses to elaborate. Furthermore, the patient continues to endorse ideas of reference and feels like he gets special messages sent to him through various media. The patient states this provider "it feels like God is talking to me." He is currently not endorsing any suicidal or homicidal ideation, intention, and/or plan. The patient has been adherent to his medication and is only reporting sedation as a side effect at this time. Mental Status Exam: General Appearance: Patient appears to be stated age is alert, directable, and cooperative. Behavior: Patient is calmly seated without any agitated behavior. Speech: Patient's speech is fluent and nonpressured. Mood/Affect: Mood is "just tired," Affect is Flat. Suicidality/Homicidality: Patient denies having any suicidal or homicidal ideation intent or plan. Perceptions: Patient is endorsing auditory hallucinations but no visualizations at this time. Though content/process: Bizarre and paranoid delusional thought content evident. Ideas of reference are evident. Memory and concentration: Grossly intact for the purposes of this session Judgment and insight: Mildly improving Vital Signs Temp 97.7 F 01/24/21 07:03 Pulse 77 01/24/21 08:38 Resp 16 01/24/21 07:03 BP 129/91 01/24/21 08:38 Pulse Ox 98 01/22/21 09:10 Assessment Schizophrenia Alcohol use disorder Plan: -Patient continues to meet criteria for inpatient psychiatric admission for symptom stabilization and safety. Patient is currently under court order. -Medications: Continue Prolixin 10 mg by mouth twice a day for psychosis. The patient was to receive Prolixin Decanoate 50 mg IM on 01/09/2021, but did not show up for his appointment. We will adminsiter Prolixin Decanoate before discharge. Continue taper of Valium to 10 mg daily. -When necessary Ativan and Haldol for agitation/aggression. -NRT - nicotine patch -SW on board for discharge planning. Encouraged the patient to participate in milieu.
[2021-01-24] MEDS: lisinopriL 20 MG TAB PO SCH (20:21)
[2021-01-25] MEDS: SODIUM CHLORIDE TAB 1 GM TAB PO SCH ×2 (08:35→21:11)
[2021-01-25] MEDS: atenoloL 50 MG TAB PO SCH ×2 (08:35→21:11)
[2021-01-25] MEDS: NYSTATIN 100,000UNIT/GM CREAM 30 GM TUBE TOPICAL SCH ×4 (08:36→21:08)
[2021-01-25] MEDS: CHOLECALCIFEROL 25 MCG (1000 IU) TABLET PO SCH (08:38)
[2021-01-25] MEDS: ASPIRIN 81 MG PO SCH (08:38)
[2021-01-25] MEDS: diazePAM 5 MG TAB PO SCH (08:38)
[2021-01-25] MEDS: PANTOPRAZOLE 40 MG TABLET PO SCH (08:38)
[2021-01-25] MEDS: BENZTROPINE MESYLATE 1 MG TAB PO SCH ×2 (08:38→21:11)
--- NOTE | 2021-01-25 12:52 | P.PN ---
Progress Note - Text Progress Note Date: 01/25/21 Interval History: Patient was seen sleeping in group and was directable and agreeable to speak with policy writer typist in the office. Patient reports that he is feeling better. He is currently not reporting any suicidal or homicidal ideation, intention, and/or plan. He is coming off endorsing auditory visual or thoughts that his paranoid thoughts decreased significantly. He states that he is getting less messages. He is currently reporting no significant issues regarding his sleep or his appetite. He is currently denying any significant side effects of his medications and appears to be tolerating them well. The patient does state that he wishes to wait even stipulate mental health court. He does not wish to go to court and his goal was to go home as soon as possible. Mental Status Exam: General Appearance: Patient appears to be stated age is alert, directable, and cooperative. Behavior: Patient is calmly seated without any agitated behavior. Speech: Patient's speech is fluent and nonpressured. Mood/Affect: Mood is feeling "better." Affect is blunted but improved. Suicidality/Homicidality: Patient denies having any suicidal or homicidal ideation intent or plan. Perceptions: Patient is not endorsing any hallucinations today. Though content/process: The patient does report some ideas of reference but states that these have decreased significantly. Memory and concentration: Grossly intact for the purposes of this session Judgment and insight: Mildly improving Vital Signs Temp 97.5 F L 01/25/21 07:14 Pulse 91 01/25/21 08:34 Resp 16 01/25/21 07:14 BP 119/87 01/25/21 08:34 Pulse Ox 98 01/22/21 09:10 Assessment Schizophrenia Alcohol use disorder Plan: -Patient continues to meet criteria for inpatient psychiatric admission for symptom stabilization and safety. Patient is currently under court order. -Medications: Continue Prolixin 10 mg by mouth twice a day for psychosis. Consider transition to Prolixin Decanoate 25 mg IM prior to discharge. Continue taper of Valium to 10 mg daily. -When necessary Ativan and Haldol for agitation/aggression. -NRT - nicotine patch -SW on board for discharge planning. Encouraged the patient to participate in milieu.
[2021-01-25] MEDS: lisinopriL 20 MG TAB PO SCH (21:11)
[2021-01-26] MEDS: ASPIRIN 81 MG PO SCH (08:00)
[2021-01-26] MEDS: BENZTROPINE MESYLATE 1 MG TAB PO SCH ×2 (08:01→20:50)
[2021-01-26] MEDS: NYSTATIN 100,000UNIT/GM CREAM 30 GM TUBE TOPICAL SCH ×3 (08:01→20:50)
[2021-01-26] MEDS: atenoloL 50 MG TAB PO SCH ×2 (08:01→20:50)
[2021-01-26] MEDS: SODIUM CHLORIDE TAB 1 GM TAB PO SCH ×2 (08:04→20:50)
[2021-01-26] MEDS ORDERED: diazePAM 5 MG TAB PO SCH (09:00)
--- NOTE | 2021-01-26 11:06 | P.PN ---
Progress Note - Text Progress Note Date: 01/26/21 Interval History: Patient was seen sleeping in group and was directable and agreeable to speak with greeting card writer in the office. Patient is reporting he is feeling tired. He is otherwise not reporting any significant symptoms of depression or anxiety at this time. He reports no suicidal or homicidal ideation, intention, and/or plan. He reports auditory hallucinations today stating he feels like he is "receiving orders." He does not verbalize the content that is told to him. He denies any visual hallucinations. The patient is wishing to waive and stipulate court as he would like to be discharged as soon as possible. He has been adherent with his medications and is not endorsing any significant side effects at this time. Mental Status Exam: General Appearance: Patient appears to be stated age is alert, directable, and cooperative. Behavior: Patient is calmly seated without any agitated behavior. Eye contact is appropriate. Speech: Patient's speech is fluent and nonpressured. Mood/Affect: Mood is feeling "Just tired." Affect is blunted. Suicidality/Homicidality: Patient denies having any suicidal or homicidal ideation intent or plan. Perceptions: Patient is endorsing auditory hallucinations today. No visual hallucinations. Though content/process: Ideas of reference. Otherwise no significant abnormalities of thought endorsed. Memory and concentration: Grossly intact for the purposes of this session Judgment and insight: Mildly improving Vital Signs Temp 97.5 F L 01/25/21 07:14 Pulse 81 01/26/21 08:21 Resp 16 01/26/21 08:21 BP 114/77 01/26/21 08:21 Pulse Ox 98 01/22/21 09:10 Assessment Schizophrenia Alcohol use disorder Plan: -Patient continues to meet criteria for inpatient psychiatric admission for symptom stabilization and safety. Patient is scheduled for court on FridayJanuary 31. He plans to waive and stipulate court. -Medications: Decrease Prolixin to 5 mg twice daily for psychosis. Administer Prolixin Decanoate 25 mg IM today. Discontinue Valium -When necessary Ativan and Haldol for agitation/aggression. -NRT - nicotine patch -SW on board for discharge planning. Encouraged the patient to participate in milieu.
[2021-01-26] MEDS ORDERED: fluPHENAZine DECANOATE 25 MG/ML 5ML MDV IM ONE (11:30)
[2021-01-26] MEDS: lisinopriL 20 MG TAB PO SCH (20:50)
[2021-01-27] MEDS: SODIUM CHLORIDE TAB 1 GM TAB PO SCH ×2 (07:54→20:12)
[2021-01-27] MEDS: CHOLECALCIFEROL 25 MCG (1000 IU) TABLET PO SCH (07:54)
[2021-01-27] MEDS: ASPIRIN 81 MG PO SCH (07:54)
[2021-01-27] MEDS: BENZTROPINE MESYLATE 1 MG TAB PO SCH ×2 (07:54→20:11)
[2021-01-27] MEDS: PANTOPRAZOLE 40 MG TABLET PO SCH (07:54)
[2021-01-27] MEDS: atenoloL 50 MG TAB PO SCH ×2 (07:55→20:12)
[2021-01-27] MEDS: NYSTATIN 100,000UNIT/GM CREAM 30 GM TUBE TOPICAL SCH ×3 (07:57→20:12)
--- NOTE | 2021-01-27 18:25 | PN ---
PROGRESS NOTE DATE OF SERVICE: 01/27/2021 CHIEF COMPLAINT: The patient had stopped medications believing they were poisoning him and believe that he would be tortured and killed. He also believed there were demons that were after him. INTERVAL HISTORY: The patient has been doing fair. He had a quiet day yesterday. He comes out on the unit. He wanders about. For the most part he seems to keep to himself. He will interact a little with others. He pays some attention to things going on around him. He chose not to attend most of the groups yesterday though did attend two groups later in the day and seemed to engage adequately in the groups. For the most part he presented with a quiet manner. He slept fairly well last night. Today he has been up again. He has been out. He attended two groups today. He is noted to show low energy and limited focus though otherwise appropriate. When I talked to the patient he continued to make references to some "[employer] [employer]" conspiracy. He talked about taking major [employer] to court to destroy them. In regard to function on the unit, he had no specific complaints or concerns. He has been cooperative with care. He reported no difficulties with his medications. It is noteworthy that he had been receiving Prolixin Decanoate 50 mg IM every 14 days with his last dose 12/26/2020. He appears to tolerate his psychotropic medications. MENTAL STATUS: Patient sat without too much restlessness. He gave fair eye contact. He made various spontaneous comments that were disconnected from things being discussed. His affect was somewhat constricted. He had a quiet mood. He did appear to be distressed. He continued to make references that were of a delusional nature. He voiced no thoughts of harm. Cognition was clear. ASSESSMENT: I will continue the current diagnosis and treatment plan. I will continue psychotropic medications the same. The patient appears to be doing fairly well. We will coordinate with [facility] in regards to treatment and discharge planning. I briefly reviewed medication issues with the patient, though he did not engage too much in the conversation. We will focus on stabilization and discharge planning. MMODL / IJN: [id number] /
[2021-01-27] MEDS: lisinopriL 20 MG TAB PO SCH (20:11)
[2021-01-28] MEDS: SODIUM CHLORIDE TAB 1 GM TAB PO SCH ×2 (07:39→20:18)
[2021-01-28] MEDS: BENZTROPINE MESYLATE 1 MG TAB PO SCH ×2 (07:39→20:18)
[2021-01-28] MEDS: ASPIRIN 81 MG PO SCH (07:39)
[2021-01-28] MEDS: atenoloL 50 MG TAB PO SCH ×2 (07:39→20:18)
[2021-01-28] MEDS: NYSTATIN 100,000UNIT/GM CREAM 30 GM TUBE TOPICAL SCH ×2 (07:40→16:07)
--- NOTE | 2021-01-28 09:13 | PN ---
PROGRESS NOTE DATE OF SERVICE: 01/28/2021. CHIEF COMPLAINT: The patient had stopped medications believing they were poisoning him and believing that he would be tortured and killed. He also believes there were demons that were after him. INTERVAL HISTORY: Patient has been doing fairly well. He had a quiet day yesterday. He comes out on the unit. He wanders about. He does interact some with others, though generally tends to have a quiet manner. He has been cooperative with care. He attended groups yesterday. He presents in a somewhat reserved manner in group. He slept well last night. Today he has been up. It is noteworthy that today when I talked to him, he was very clear in his thinking. He noted that he had signed the waiver in regards to his upcoming court hearing. He was able to state that it was his understanding that through signing the waiver, the court hearing is deferred and that he would be in a position to be discharged hopefully soon. He only made 1 reference to "court cases" that he had in regard to lawsuits that he previously had referenced. He only stated that as a brief side and otherwise stayed completely on track with the conversation. He had fairly good understanding of his medications. He tolerates his medications. MENTAL STATUS: Patient sat without restlessness. He had good eye contact. Psychomotor activity was somewhat slowed. He answered questions appropriately. His thoughts were clear. His affect tends to be blunted. His mood was quiet. He did not show much emotional expression one way or another. He did not appear to be distressed. He did not evidence any outward signs of thought disorder other than a brief reference to court cases which is not likely to be in reality. He voiced no thoughts of harm. He was oriented and alert. He could tell me the day and date. He also was able to tell me the date of the schedule court hearing, which has now been deferred. ASSESSMENT: I will continue the current diagnosis and treatment plan. The patient appears to be making good progress. He shows significant improvement in his thought process. We will focus on stabilization and discharge planning. I anticipate discharging the patient early in the week. SANTHOSH / JYOTSNA: [id number] /
[2021-01-28] MEDS: lisinopriL 20 MG TAB PO SCH (20:18)
[2021-01-29] MEDS: NYSTATIN 100,000UNIT/GM CREAM 30 GM TUBE TOPICAL SCH ×2 (01:57→08:22)
[2021-01-29 07:26] VITALS: TEMP 97
[2021-01-29] MEDS: atenoloL 50 MG TAB PO SCH (08:23)
[2021-01-29] MEDS: SODIUM CHLORIDE TAB 1 GM TAB PO SCH (08:23)
[2021-01-29] MEDS: ASPIRIN 81 MG PO SCH (08:23)
[2021-01-29] MEDS: PANTOPRAZOLE 40 MG TABLET PO SCH (08:23)
[2021-01-29] MEDS: BENZTROPINE MESYLATE 1 MG TAB PO SCH (08:23)
[2021-01-29] MEDS: CHOLECALCIFEROL 25 MCG (1000 IU) TABLET PO SCH (08:23)
[2021-01-29 08:25] VITALS: BP 150/95; PULSE 87
--- NOTE | 2021-01-29 12:08 | P.DS ---
Providers Date of admission: 01/18/21 18:52 Expected date of discharge: 01/29/21 Attending physician: Jim Flores MD Consults: 01/18/21 19:38 Consult Physician Routine Consulting Provider: Ezequiel Starks Consult Reason/Comments: history and physical/medical management Do you want consulting provider notified?: Yes Primary care physician: [facility] - Discharge Diagnosis(es) (1) Schizophrenia Current Visit: Yes Status: Acute Priority: High (2) Alcohol abuse Current Visit: Yes Status: Chronic Priority: Medium Hospital Course: Admission HPI: Initial psychiatric evaluation was completed by Dr. Limon on 01/19/2021 who wrote: "Mr. Tin Askew is a 55-year-old single male who currently lives by himself at his own residence, [facility], has psychiatric history of schizophrenia, and medical history of or tension. The patient has been admitted to our inpatient psychiatric services after been transferred from [facility] ED. Patient was initially brought to ED by EMS for psychiatric evaluation. The patient has been admitted on involuntary basis to our service. "I don't need to be here, it's a mistake." The patient was long history of schizophrenia who was brought to the hospital with a petition that he refused to take his psychiatric medications because he thought the medications are poisoned, and was feeling that he would be tortured and killed. According to evaluation today, patient reports that he is misdiagnosed and the reason for this hospitalization that he is" the wrong prisoner", and he was on "arrested" referring to a local engine builder "Diane" wants to put him in the hospital. He reports that this engine builder wants to tell him something. Patient stated that he does not want to take any medications especially his psych meds and will not take any medications after discharge. He denies auditory or visual hallucinations, denies any suicidal or homicidal ideation and reports "I can entertain myself". Denies any symptoms of anxiety, depression, severe mood swings, anger, or agitation. Patient appears responding to internal stimuli, and was very superficial in his answers was very flat affect. He was alert and fully oriented but delusional about his meds that they are rat poisoned and and he couldn't explain any more. He believes certain pharmacist and a pharmaceutical companies boys on his medications and mess up with the label on his meds to kill him. He believes that he will be killed if he takes these medications. At one point he reports will not take any medications including his blood pressure medications, but he agreed to take his blood pressure medication from the nurses. Patient reports that he doesn't feel safe about how the medications handled and could be a lot of money bribing pharmaceutical company to kill him." Hospital course: Upon admission to the unit patient was initially noted to be uncooperative, with poor eye contact, polite endorsing significant paranoid delusions and auditory hallucinations. The patient was petitioned and certified. The patient initially refused to take any medications. He was started on his home medication of Prolixin and Cogentin. Their encouragement, the patient was eventually adherent with his medications and when seen by this provider, his Prolixin was gradually titrated to a final dose of 10 mg twice a day. Coordination with the patient's sister as well as [facility] took place. The patient was compliant with his medications and denied any significant side effects of the medication throughout the hospital course aside from sedation. The patient was also eventually tech per Belinda Valium which was started for concerns for alcohol withdrawal. The patient engaged in both individual and group therapies. He was also seen by the medical team for history and physical examination. Over the course of the hospitalization, the patient displayed significant improvement in regards to his psychotic symptoms. He became less psychotic, less delusional, and had a significant decrease in his auditory hallucinations. Although some the delusions appear at baseline, he is no longer reacting to them or preoccupied by them. The patient was transitioned to Prolixin Decanoate 25 mg IM on 01/26/2021. This is because the patient appeared to be doing well with the lower dose of Prolixin. This may be reevaluated by [facility] in the outpatient setting if the patient displays uncontrolled symptoms and may be titrated back on his Prolixin decanoate 50 mg IM dose. The patient eventually waved and stipulated court. He was agreeable to be under a court order for mental health treatment and to continue taking his medications and following up with his appointments with [facility]. On the day of discharge, the patient is not endorsing any suicidal or homicidal ideation, intention, and/or plan. He is not reporting any auditory or visual hallucinations. Denying any paranoia or other delusions. He is not reporting any access to firearms or other weapons. The patient has been adherent with his medications and is endorsing no significant side effects at this time. He denies any chest pain or shortness of breath. He reports no EPS symptoms or tardive symptoms. The patient was counseled length on the importance of his medications and with regular follow-up. The patient has a history of substance abuse however was counseled on abstaining from all substances including alcohol and marijuana. Prior to discharge, and remaining Wellbutrin by social work assistant to answer any questions and ensure safety. Mental status exam: General Appearance: Patient appears to be stated age is alert, pleasant, and cooperative. Patient is in no acute distress and has fair hygiene and grooming Behavior: Patient is calmly seated without any agitated behavior. Speech: Patient's speech is fluent and nonpressured. Mood/Affect: Patient reports their mood is "feeling good", affect is congruent and euthymic. Range of affect is slightly increased but continues to be blunted at baseline. Suicidality/Homicidality: Patient is not endorsing any suicidal homicidal ideation, intention, and/or plan. Perceptions: Patient denies any auditory or visual hallucinations. Though content/process: Mild delusional thought content is present but does not appear to be preoccupying the patient. Thought process appears to be linear and logical in short conversation. Memory and concentration: AOX3, grossly intact for the purposes of this session. Can spell "WORLD" backwards correctly. Judgment and insight: Improved with guarded prognosis Vital Signs Temp 97 F L 01/29/21 07:04 Pulse 87 01/29/21 08:24 Resp 16 01/29/21 07:04 BP 150/95 01/29/21 08:24 Pulse Ox 98 01/22/21 09:10 Impression: Schizophrenia Alcohol use disorder Plan: -Continue with discharge today as patient has improved and stabilized psychiatrically and is not currently an imminent threat to himself and/or others. Patient will remain at chronically elevated risk for harm to self and/or others due to his severity of mental illness and his co-occurring alcohol use. -Continue medications: Prolixin decanoate 25 mg IM every 14 weeks. Next dose due show 02/09/2021. Cogentin 1 mg by mouth twice a day when necessary for side effects Home medications of atenlol, lisinopril, aspirin, and nystatin -Patient was counseled on the need for medication compliance and appropriate follow-up at mental health and also primary care for medical issues. Patient verbalized understanding and agreed. -Social work to arrange for and conduct family meeting to ensure safety upon discharge and answer any questions/concerns.] Social work also to arrange for patients follow up appointments with [facility] for psychiatric care along with follow up with primary care provider. -Patient counseled on abstaining from recreational drugs and marijuana and alcohol. Was informed/educated on the adverse effects on their physical and mental health. Patient verbally agreed and understood. Patient was offered substance abuse treatment however declined at this time. -Patient was instructed to return to the hospital or seek immediate medical care if their psychiatric or medical symptoms do worsen or reoccur. -Psychoeducation and supportive therapy provided to patient. Risks and benefits of pharmacological treatment versus the risks and benefits of nontreatment weight and discussed. Informed consent discussion held. Common side effects of psychotropics discussed such as, but not limited to headache, GI disturbance, sexual dysfunction, movement disorders, sedation, and orthostatic hypotension. Life threatening and blackbox warnings of prescribed medications also discussed. Potential risks of operating a vehicle or heavy machinery discussed with patient at length. Advised on importance of compliance and a reliable and responsible manner. Patient advised to review FDA consumer labeling of all medications prior to taking. Patient verbalized understanding of potential risks, and agrees with current treatment plan. Patient advised to medically contact physician/emergency personnel if any acute changes in condition occur. Laboratory Results WBC 8.3 k/uL (3.8-10.6) 01/18/21 14:00 RBC 4.39 m/uL (4.30-5.90) 01/18/21 14:00 Hgb 15.4 gm/dL (13.0-17.5) 01/18/21 14:00 Hct 41.1 % (39.0-53.0) 01/18/21 14:00 MCV 93.6 fL (80.0-100.0) 01/18/21 14:00 MCH 35.2 pg (25.0-35.0) H 01/18/21 14:00 MCHC 37.6 g/dL (31.0-37.0) H 01/18/21 14:00 RDW 12.3 % (11.5-15.5) 01/18/21 14:00 Plt Count 239 k/uL (150-450) 01/18/21 14:00 MPV 7.8 01/18/21 14:00 Neutrophils % 71 % 01/18/21 14:00 Lymphocytes % 15 % 01/18/21 14:00 Monocytes % 9 % 01/18/21 14:00 Eosinophils % 1 % 01/18/21 14:00 Basophils % 1 % 01/18/21 14:00 Neutrophils # 5.8 k/uL (1.3-7.7) 01/18/21 14:00 Lymphocytes # 1.3 k/uL (1.0-4.8) 01/18/21 14:00 Monocytes # 0.7 k/uL (0-1.0) 01/18/21 14:00 Eosinophils # 0.1 k/uL (0-0.7) 01/18/21 14:00 Basophils # 0.0 k/uL (0-0.2) 01/18/21 14:00 Hyperchromasia Slight 01/18/21 14:00 Sodium 131 mmol/L (137-145) L 01/18/21 14:00 Potassium 3.7 mmol/L (3.5-5.1) 01/18/21 14:00 Chloride 95 mmol/L (98-107) L 01/18/21 14:00 Carbon Dioxide 24 mmol/L (22-30) 01/18/21 14:00 Anion Gap 12 mmol/L 01/18/21 14:00 BUN 4 mg/dL (9-20) L 01/18/21 14:00 Creatinine 0.57 mg/dL (0.66-1.25) L 01/18/21 14:00 Est GFR (CKD-EPI)AfAm >90 (>60 ml/min/1.73 sqM) 01/18/21 14:00 Est GFR (CKD-EPI)NonAf >90 (>60 ml/min/1.73 sqM) 01/18/21 14:00 Glucose 84 mg/dL (74-99) 01/18/21 14:[address] Glu mg/dL 85 01/19/21 07:11 Hemoglobin A1c 4.6 % (4.0-6.0) 01/19/21 07:11 Calcium 9.4 mg/dL (8.4-10.2) 01/18/21 14:00 Magnesium 1.7 mg/dL (1.6-2.3) 01/18/21 14:00 Total Bilirubin 1.6 mg/dL (0.2-1.3) H 01/18/21 14:00 AST 75 U/L (17-59) H 01/18/21 14:00 ALT 51 U/L (4-49) H 01/18/21 14:00 Alkaline Phosphatase 67 U/L (38-126) 01/18/21 14:00 Total Protein 7.2 g/dL (6.3-8.2) 01/18/21 14:00 Albumin 4.4 g/dL (3.5-5.0) 01/18/21 14:00 Triglycerides <50.0 mg/dL (0.0-149.0) 01/19/21 07:11 Cholesterol 81 mg/dL (0-200) 01/19/21 07:11 LDL Cholesterol, Calc mg/dL (0.0-131.0) 01/19/21 07:11 VLDL Cholesterol, Calc mg/dL (5.00-40.00) 01/19/21 07:11 HDL Cholesterol 53.0 mg/dL (40.0-60.0) 01/19/21 07:11 Cholesterol/HDL Ratio 1.53 01/19/21 07:11 TSH 1.230 mIU/L (0.465-4.680) 01/19/21 07:11 Urine Opiates Screen Not Detected (NotDetected) 01/18/21 14:00 Ur Oxycodone Screen Not Detected (NotDetected) 01/18/21 14:00 Urine Methadone Screen Not Detected (NotDetected) 01/18/21 14:00 Ur Propoxyphene Screen Not Detected (NotDetected) 01/18/21 14:00 Ur Barbiturates Screen Not Detected (NotDetected) 01/18/21 14:00 U Tricyclic Antidepress Not Detected (NotDetected) 01/18/21 14:00 Ur Phencyclidine Scrn Not Detected (NotDetected) 01/18/21 14:00 Ur Amphetamines Screen Not Detected (NotDetected) 01/18/21 14:00 U Methamphetamines Scrn Not Detected (NotDetected) 01/18/21 14:00 U Benzodiazepines Scrn Not Detected (NotDetected) 01/18/21 14:00 Urine Cocaine Screen Not Detected (NotDetected) 01/18/21 14:00 U Marijuana (THC) Screen Not Detected (NotDetected) 01/18/21 14:00 Coronavirus (PCR) Not Detected (Not Detectd) 01/18/21 16:50 Allergies Allergy/AdvReac Type Severity Reaction Status Date / Time No Known Allergies Allergy Verified 01/26/21 09:44 Patient Condition at Discharge: Stable Plan - Discharge Summary Discharge Rx Participant: No New Discharge Prescriptions: New Nystatin 100,000Unit/gm Cream [Mycostatin Cream] 1 applic TOPICAL TID 14 Days gm atenoloL [Tenormin] 50 mg PO BID 30 Days tab Aspirin 81 mg PO DAILY 30 Days tab Benztropine Mesylate [Cogentin] 1 mg PO BID PRN 30 Days tab PRN Reason: For side effects lisinopriL [Zestril] 20 mg PO HS 30 Days tab Continue Omeprazole 20 mg PO Q48H Cholecalciferol (Vitamin D3) [Vitamin D3 (125 MCG = 5,000 IU)] 125 mcg PO Q48H Changed fluPHENAZine decanoate [Prolixin Decanoate] 25 mg IM Q14D #1 ml Discontinued atenoloL [Tenormin] 50 mg PO BID Acetaminophen [Tylenol] 650 mg PO TID PRN PRN Reason: Pain lisinopriL [Zestril] 20 mg PO HS Benztropine Mesylate [Cogentin] 2 mg PO BID Aspirin EC [Ecotrin Low Dose] 81 mg PO DAILY Discharge Medication List Omeprazole 20 mg PO Q48H 05/14/18 [History] Cholecalciferol (Vitamin D3) [Vitamin D3 (125 MCG = 5,000 IU)] 125 mcg PO Q48H 01/04/21 [History] Aspirin 81 mg PO DAILY 30 Days tab 01/29/21 [Rx] Benztropine Mesylate [Cogentin] 1 mg PO BID PRN 30 Days tab 01/29/21 [Rx] Nystatin 100,000Unit/gm Cream [Mycostatin Cream] 1 applic TOPICAL TID 14 Days gm 01/29/21 [Rx] atenoloL [Tenormin] 50 mg PO BID 30 Days tab 01/29/21 [Rx] fluPHENAZine decanoate [Prolixin Decanoate] 25 mg IM Q14D #1 ml 01/29/21 [Rx] lisinopriL [Zestril] 20 mg PO HS 30 Days tab 01/29/21 [Rx] Follow up Appointment(s)/Referral(s): [facility] [Primary Care Provider] - 1-2 days Patient Instructions/Handouts: Schizophrenia (DC) Activity/Diet/Wound Care/Special Instructions: Activity and diet as tolerated. Avoid the use of street drugs and alcohol. Take all medications as prescribed. When you are in need of refills on your medications please contact your medical provider and/or outpatient psychiatrist to have this done. Please go to scheduled outpatient appointment for aftercare treatment. If symptoms return or become worse, call the crisis line at and/or go to the nearest emergency room for evaluation. Discharge Disposition: HOME SELF-CARE
== END 2021-01-29 14:22 | disposition home or self-care (01) | DRG 885 ==
LOC: EC 12:53 → 3MHU 18:52
PROVIDERS: ADMIT Psychiatry & Neurology Psychiatry; ATTEND Psychiatry & Neurology Psychiatry
DX: F20.9 Schizophrenia, unspecified (principal); Z91.128 Patient's intentional underdosing of medication regimen for other reason; F10.10 Alcohol abuse, uncomplicated; Z20.822 Contact with and (suspected) exposure to COVID-19; T50.906A Underdosing of unspecified drugs, medicaments and biological substances, initial encounter; I10 Essential (primary) hypertension; K21.9 Gastro-esophageal reflux disease without esophagitis; I83.90 Asymptomatic varicose veins of unspecified lower extremity; Z79.82 Long term (current) use of aspirin; Z79.899 Other long term (current) drug therapy; Z56.0 Unemployment, unspecified; Z98.818 Other dental procedure status; Z82.49 Family history of ischemic heart disease and other diseases of the circulatory system; Z83.2 Family history of diseases of the blood and blood-forming organs and certain disorders involving the immune mechanism
CPT/HCPCS: 36415; 80053; 80061; 80306; 82075; 83036; 83735; 84443; 85025; 87635; 96360; 96361; 99285

== ENCOUNTER 2021-02-05 12:00 | Emergency (ER) | payer MEDICARE, OTHER ==
[2021-02-05 12:49] VITALS: RESP 18; TEMP 98.7
--- NOTE | 2021-02-05 14:04 | ED ---
Psych HPI - General Chief Complaint: Psychiatric Symptoms Stated Complaint: EPS-Court Order Time Seen by Provider: 02/05/21 13:14 Source: patient, police - History of Present Illness Initial Comments: 55-year-old male who presents emergency Department on a pickup order. He states that he was at home when the police showed up to his house. He states that the cords feel as if he is drinking too much. He states that he drinks every day however he is not harming anyone. The pickup order states the patient is not taking his meds. He tells the nurse that he is not taking them however to me he states that he has been compliant. Patient is currently intoxicated at this time. He is tearful and admits depression. States he wishes everyone would leave him alone. - Related Data Home Medications Medication Instructions Recorded Confirmed Omeprazole 20 mg PO Q48H 05/14/18 02/05/21 Cholecalciferol (Vitamin D3) 125 mcg PO Q48H 01/04/21 02/05/21 [Vitamin D3 (125 MCG = 5,000 IU)] Previous Rx's Medication Instructions Recorded Aspirin 81 mg PO DAILY 30 Days tab 01/29/21 Benztropine Mesylate [Cogentin] 1 mg PO BID PRN 30 Days tab 01/29/21 Nystatin 100,000Unit/gm Cream 1 applic TOPICAL TID 14 Days gm 01/29/21 [Mycostatin Cream] atenoloL [Tenormin] 50 mg PO BID 30 Days tab 01/29/21 fluPHENAZine decanoate [Prolixin 25 mg IM Q14D #1 ml 01/29/21 Decanoate] lisinopriL [Zestril] 20 mg PO HS 30 Days tab 01/29/21 Allergies Allergy/AdvReac Type Severity Reaction Status Date / Time No Known Allergies Allergy Verified 02/05/21 13:36 Review of Systems ROS Statement: Those systems with pertinent positive or pertinent negative responses have been documented in the HPI. ROS Other: All systems not noted in ROS Statement are negative. Past Medical History Past Medical History: GERD/Reflux, Hypertension Additional Past Medical History / Comment(s): VARICOSE VEINS. History of Any Multi-Drug Resistant Organisms: None Reported Past Surgical History: No Surgical Hx Reported Additional Past Surgical History / Comment(s): TOOTH EXTRACTIONS Past Anesthesia/Blood Transfusion Reactions: No Reported Reaction Additional Past Anesthesia/Blood Transfusion Reaction / Comment(s): Never had Past Psychological History: Anxiety, Depression, Schizophrenia Smoking Status: Never smoker - Past Family History Father Family Medical History: Myocardial Infarction (NM) Additional Family Medical History / Comment(s): AT AGE 58 FROM [place] Mother Family Medical History: Deep Vein Thrombosis (DVT), Hypertension Additional Family Medical History / Comment(s): PRIMARY PULMONARY HYPERTENSION General Exam Limitations: no limitations General appearance: alert, in no apparent distress, appears intoxicated Head exam: Present: atraumatic, normocephalic, normal inspection Eye exam: Present: normal appearance, PERRL, EOMI. Absent: scleral icterus, conjunctival injection, periorbital swelling ENT exam: Present: normal exam, mucous membranes moist Neck exam: Present: normal inspection. Absent: tenderness, meningismus, lymphadenopathy Respiratory exam: Present: normal lung sounds bilaterally. Absent: respiratory distress, wheezes, rales, rhonchi, stridor Cardiovascular Exam: Present: regular rate, normal rhythm, normal heart sounds. Absent: systolic murmur, diastolic murmur, rubs, gallop, clicks GI/Abdominal exam: Present: soft, normal bowel sounds. Absent: distended, tenderness, guarding, rebound, rigid Extremities exam: Present: normal inspection, full ROM, normal capillary refill. Absent: tenderness, pedal edema, joint swelling, calf tenderness Back exam: Present: normal inspection Neurological exam: Present: alert, oriented X3, CN II-XII intact Psychiatric exam: Present: depressed Skin exam: Present: warm, dry, intact, normal color. Absent: rash Course Vital Signs 02/05/21 12:45 Temperature 98.7 F Pulse Rate 78 Respiratory 18 Rate Blood Pressure 148/100 O2 Sat by Pulse 98 Oximetry Medical Decision Making - Medical Decision Making Upon arrival patient is placed in room 12. A thorough history and physical exam was performed. Patient is currently intoxicated with a level of 141. He will be sober and 4 hours and is awaiting EPS evaluation - Lab Data Lab Results 02/05/21 Range/Units 13:00 Urine Color Colorless Urine Appearance Clear (Clear) Urine pH 6.5 (5.0-8.0) Ur Specific Eckerman 1.002 (1.001-1.035) Urine Protein Negative (Negative) Urine Glucose (UA) Negative (Negative) Urine Ketones Negative (Negative) Urine Blood Negative (Negative) Urine Nitrite Negative (Negative) Urine Bilirubin Negative (Negative) Urine Urobilinogen <2.0 (<2.0) mg/dL Ur Leukocyte Esterase Small H (Negative) Urine RBC <1 (0-5) /hpf Urine WBC 1 (0-5) /hpf Urine Opiates Screen Not Detected (NotDetected) Ur Oxycodone Screen Not Detected (NotDetected) Urine Methadone Screen Not Detected (NotDetected) Ur Propoxyphene Screen Not Detected (NotDetected) Ur Barbiturates Screen Not Detected (NotDetected) U Tricyclic Antidepress Not Detected (NotDetected) Ur Phencyclidine Scrn Not Detected (NotDetected) Ur Amphetamines Screen Not Detected (NotDetected) U Methamphetamines Scrn Not Detected (NotDetected) U Benzodiazepines Scrn Detected H (NotDetected) Urine Cocaine Screen Not Detected (NotDetected) U Marijuana (THC) Screen Not Detected (NotDetected) Disposition Clinical Impression: Alcohol abuse Disposition: HOME SELF-CARE Condition: Stable Instructions (If sedation given, give patient instructions): Alcohol Dependence (ED) Is patient prescribed a controlled substance at d/c from ED?: No Referrals: None,Stated [Primary Care Provider] - 1-2 days Time of Disposition: 22:18
[2021-02-05 14:26] LABS: Appearance,Urine Clear (Clear); Bilirubin,Urine Negative (Negative); Blood,Urine Negative (Negative); Color,Urine Colorless; Glucose,Urine (UA) Negative (Negative); Ketones,Urine Negative (Negative); Leukocyte Esterase,Urine Small (Negative); Nitrite,Urine Negative (Negative); PH, Urine 6.5 (5.0-8.0); Protein,Urine Negative (Negative); RBC,Urine <1 /hpf (0-5); Specific Gravity,Urine 1.002 (1.001-1.035); Urobilinogen,Urine <2.0 mg/dL (<2.0); WBC,Urine 1 /hpf (0-5)
[2021-02-05 14:54] LABS: Amphetamine Screen,Urine Not Detected (NotDetected); Barbiturate Screen,Urine Not Detected (NotDetected); Benzodiazepines Screen,Urine Detected (NotDetected); Cocaine Screen,Urine Not Detected (NotDetected); Methadone Screen, Urine Not Detected (NotDetected); Opiate Screen,Urine Not Detected (NotDetected); Oxycodone Screen, Urine Not Detected (NotDetected); Phencyclidine Screen,Urine Not Detected (NotDetected); Tricyclic Antidepressant,Urine Not Detected (NotDetected); Urn Cannabinoid Scrn Not Detected (NotDetected)
[2021-02-05] MEDS ORDERED: LORazepam 1 MG TAB PO STA (20:52)
[2021-02-05 22:29] VITALS: BP 136/84; PULSE 82
== END 2021-02-05 22:29 | disposition home or self-care (01) ==
LOC: EC 12:00
DX: F10.129 Alcohol abuse with intoxication, unspecified (principal); I10 Essential (primary) hypertension; K21.9 Gastro-esophageal reflux disease without esophagitis; F32.9 Major depressive disorder, single episode, unspecified; F41.9 Anxiety disorder, unspecified; F20.9 Schizophrenia, unspecified; Z79.82 Long term (current) use of aspirin; Z79.899 Other long term (current) drug therapy; Z82.49 Family history of ischemic heart disease and other diseases of the circulatory system; Y90.6 Blood alcohol level of 120-199 mg/100 ml
CPT/HCPCS: 80306; 81001; 82075; 99284

== ENCOUNTER 2021-05-07 11:53 | Inpatient (IN) | payer MEDICARE, MEDICAID ==
--- NOTE | 2021-05-07 16:06 | ED ---
General Adult HPI - General Chief complaint: Psychiatric Symptoms Stated complaint: pickup order Time Seen by Provider: 05/07/21 15:42 Source: police Mode of arrival: ambulatory Limitations: altered mental status - History of Present Illness Initial comments: Dictation was produced using frooly dictation software. please excuse any grammatical, word or spelling errors. Chief Complaint: 55-year-old male past medical history of psychiatric disease presents via court order for psych evaluation History of Present Illness: Is a 55-year-old male he has past medical history of psychiatric disease. States that he does not know why he is here. He is brought in by law enforcement. Patient will is allegedly making suicidal comments to his ECT nurse. Patient's care navigator was notified and filed a court petition to have patient brought to the emergency department for evaluation. Patient has been having manic thoughts. No medical issues at the bedside. The ROS documented in this emergency department record has been reviewed and confirmed by me. Those systems with pertinent positive or negative responses have been documented in the HPI. All other systems are other negative and/or noncontributory. PHYSICAL EXAM: General Impression: Alert and oriented x3, not in acute distress HEENT: Normocephalic atraumatic, extra-ocular movements intact, pupils equal and reactive to light bilaterally, mucous membranes moist. Cardiovascular: Heart regular rate and rhythm Chest: Able to complete full sentences, no retractions, no tachypnea Abdomen: abdomen soft, non-tender, non-distended, no organomegaly Musculoskeletal: Pulses present and equal in all extremities, no peripheral edema Motor: no focal deficits noted Neurological: CN II-XII grossly intact, no focal motor or sensory deficits noted Skin: Intact with no visualized rashes Psych: Manic, tangential speech ED course: 55-year-old male past medical history of psychiatric disease presents to the emergency department for manic and delusional thoughts. Did allegedly have suicidal attempts several weeks ago. Vital signs upon arrival are within acceptable limits. Patient evaluated by EPS and will be admitted to inpatient psychiatry. - Related Data Home Medications Medication Instructions Recorded Confirmed Omeprazole 20 mg PO Q48H 05/14/18 05/07/21 Cholecalciferol (Vitamin D3) 125 mcg PO Q48H 01/04/21 05/07/21 [Vitamin D3 (125 MCG = 5,000 IU)] Acetaminophen Tab [Tylenol] 650 mg PO TID PRN 05/07/21 05/07/21 Benztropine Mesylate [Cogentin] 2 mg PO BID 05/07/21 05/07/21 Naltrexone Microspheres [Vivitrol] 380 mg IM Q28D 05/07/21 05/07/21 fluPHENAZine decanoate [Prolixin 50 mg IM Q14D 05/07/21 05/07/21 Decanoate] Previous Rx's Medication Instructions Recorded Aspirin 81 mg PO DAILY 30 Days tab 01/29/21 atenoloL [Tenormin] 50 mg PO BID 30 Days tab 01/29/21 lisinopriL [Zestril] 20 mg PO HS 30 Days tab 01/29/21 Allergies Allergy/AdvReac Type Severity Reaction Status Date / Time No Known Allergies Allergy Verified 05/07/21 19:13 Review of Systems ROS Statement: Those systems with pertinent positive or pertinent negative responses have been documented in the HPI. ROS Other: All systems not noted in ROS Statement are negative. Past Medical History Past Medical History: GERD/Reflux, Hypertension Additional Past Medical History / Comment(s): VARICOSE VEINS. History of Any Multi-Drug Resistant Organisms: None Reported Past Surgical History: No Surgical Hx Reported Additional Past Surgical History / Comment(s): TOOTH EXTRACTIONS Past Anesthesia/Blood Transfusion Reactions: No Reported Reaction Additional Past Anesthesia/Blood Transfusion Reaction / Comment(s): Never had Past Psychological History: Anxiety, Depression, Schizophrenia Smoking Status: Never smoker Past Alcohol Use History: Heavy Past Drug Use History: None Reported - Past Family History Father Family Medical History: Myocardial Infarction ([place]) Additional Family Medical History / Comment(s): AT AGE 58 FROM [place] Mother Family Medical History: Deep Vein Thrombosis (DVT), Hypertension Additional Family Medical History / Comment(s): PRIMARY PULMONARY HYPERTENSION General Exam Limitations: altered mental status Course Vital Signs 05/07/21 05/07/21 15:33 17:00 Temperature 97.8 F Pulse Rate 75 Respiratory 18 18 Rate Blood Pressure 160/103 O2 Sat by Pulse 99 Oximetry Disposition Clinical Impression: Psychosis Disposition: ADMITTED IP TO THIS HOSP Condition: Fair Referrals: [facility] [Primary Care Provider] - 1-2 days
[2021-05-07] MEDS ORDERED: ACETAMINOPHEN TAB 325 MG TAB PO PRN (21:56)
[2021-05-07] MEDS ORDERED: MAG HYDROX/AL HYDROX/SIMETH 30 ML CUP PO PRN (21:59)
[2021-05-07] MEDS ORDERED: MAGNESIUM HYDROXIDE 2,400 MG/10 ML CUP PO PRN (21:59)
[2021-05-07] MEDS ORDERED: LORazepam 1 MG TAB PO PRN (21:59)
[2021-05-07] MEDS ORDERED: LORazepam 2 MG/ML INJ IM PRN (22:03)
[2021-05-07] MEDS: lisinopriL 20 MG TAB PO SCH (22:47)
[2021-05-07] MEDS: atenoloL 50 MG TAB PO SCH (22:47)
[2021-05-07 23:12] LABS: Appearance,Urine Clear (Clear); Bilirubin,Urine Negative (Negative); Blood,Urine Negative (Negative); Color,Urine Light Yellow; Glucose,Urine (UA) Negative (Negative); Ketones,Urine Negative (Negative); Leukocyte Esterase,Urine Negative (Negative); Nitrite,Urine Negative (Negative); Protein,Urine Negative (Negative); Specific Gravity,Urine 1.005 (1.001-1.035); Urobilinogen,Urine <2.0 mg/dL (<2.0)
[2021-05-07 23:22] LABS: Amphetamine Screen,Urine Not Detected (NotDetected); Barbiturate Screen,Urine Not Detected (NotDetected); Benzodiazepines Screen,Urine Not Detected (NotDetected); Cocaine Screen,Urine Not Detected (NotDetected); Methadone Screen, Urine Not Detected (NotDetected); Opiate Screen,Urine Not Detected (NotDetected); Oxycodone Screen, Urine Not Detected (NotDetected); Phencyclidine Screen,Urine Not Detected (NotDetected); Tricyclic Antidepressant,Urine Not Detected (NotDetected); Urn Cannabinoid Scrn Not Detected (NotDetected)
[2021-05-08] MEDS ORDERED: flUPHENAZine 2.5 MG/ML (MDV) 10 ML VIAL IM PRN
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
[2021-05-08 07:32] LABS: Basophils # (A) 0.1 k/uL (0-0.2); Basophils % (A) 1 %; Eosinophils # (A) 0.4 k/uL (0-0.7); Eosinophils % (A) 9 %; HCT 39.5 % (39.0-53.0); HGB 13.4 gm/dL (13.0-17.5); Lymphocytes # (A) 1.3 k/uL (1.0-4.8); Lymphocytes % (A) 25 %; MCHC 33.9 g/dL (31.0-37.0); MCV 97.4 fL (80.0-100.0); Mean Platelet Volume 7.6; Monocytes # (A) 0.4 k/uL (0-1.0); Monocytes % (A) 8 %; Neutrophils # (A) 2.8 k/uL (1.3-7.7); Neutrophils % (A) 55 %; Platelet Count 218 k/uL (150-450); RBC 4.05 m/uL (4.30-5.90); RDW 14.3 % (11.5-15.5); WBC 5.1 k/uL (3.8-10.6)
[2021-05-08 07:49] LABS: ALT 20 U/L (4-49); AST 31 U/L (17-59); African American GFR (CKD) >90 (>60 ml/min/1.73 sqM); Albumin 3.8 g/dL (3.5-5.0); Alkaline Phosphatase 61 U/L (38-126); Anion Gap 6 mmol/L; Blood Urea Nitrogen 12 mg/dL (9-20); Calcium 9.7 mg/dL (8.4-10.2); Carbon Dioxide 31 mmol/L (22-30); Chloride 103 mmol/L (98-107); Glucose 99 mg/dL (74-99); Non-African American GFR(CKD) >90 (>60 ml/min/1.73 sqM); Potassium 4.3 mmol/L (3.5-5.1); Sodium 140 mmol/L (137-145); Total Bilirubin 1.4 mg/dL (0.2-1.3); Total Protein 6.6 g/dL (6.3-8.2)
[2021-05-08] MEDS: ASPIRIN 81 MG PO SCH (07:54)
[2021-05-08] MEDS: PANTOPRAZOLE 40 MG TABLET PO SCH (07:55)
[2021-05-08] MEDS: atenoloL 50 MG TAB PO SCH ×2 (07:55→20:10)
[2021-05-08] MEDS: CHOLECALCIFEROL 125 MCG (5000 IU) TABLET PO SCH (07:55)
[2021-05-08] MEDS ORDERED: atenoloL 50 MG TAB PO SCH (09:00)
[2021-05-08] MEDS ORDERED: BENZTROPINE MESYLATE 1 MG TAB PO SCH (09:00)
[2021-05-08 11:35] LABS: Chol/HDL Ratio 1.29 Ratio
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
[2021-05-08 12:38] VITALS: BMI 29.4
[2021-05-08] MEDS: THIAMINE 100 MG TAB PO SCH (13:45)
[2021-05-08] MEDS: FOLIC ACID 1 MG TAB PO SCH (13:45)
[2021-05-08] MEDS: MULTIVITAMINS, THERA 1 EACH TAB PO SCH (13:46)
[2021-05-08] MEDS: lisinopriL 20 MG TAB PO SCH (20:10)
[2021-05-08] MEDS: BENZTROPINE MESYLATE 1 MG TAB PO SCH (20:10)
[2021-05-08] MEDS: SODIUM CHLORIDE TAB 1 GM TAB PO SCH (20:55)
[2021-05-08] MEDS ORDERED: lisinopriL 20 MG TAB PO SCH (21:00)
[2021-05-09] MEDS: ASPIRIN 81 MG PO SCH (08:55)
[2021-05-09] MEDS: THIAMINE 100 MG TAB PO SCH (08:56)
[2021-05-09] MEDS: FOLIC ACID 1 MG TAB PO SCH (08:56)
[2021-05-09] MEDS: MULTIVITAMINS, THERA 1 EACH TAB PO SCH (08:56)
[2021-05-09] MEDS: BENZTROPINE MESYLATE 1 MG TAB PO SCH ×2 (08:56→20:30)
[2021-05-09] MEDS: SODIUM CHLORIDE TAB 1 GM TAB PO SCH ×2 (08:57→20:30)
[2021-05-09] MEDS: atenoloL 50 MG TAB PO SCH ×2 (08:57→20:30)
[2021-05-09 09:46] VITALS: PULSE 88
--- NOTE | 2021-05-09 11:18 | P.PN ---
Progress Note - Text Progress Note Date: 05/09/21 Interval History: Patient was seen resting in bed and was directable and agreeable to speak with the flex o writer operator in his room. The patient does express some psychotic symptoms today. He reports that he has been expressing auditory hallucinations, admitting that he would hear conversations between "multiple professionals." He is unable to identify any content of what was heard by him. He is currently denying any suicidal or homicidal ideation, intention, and/or plan. He is not reporting any auditory or visual status. He is denying any paranoia today but does endorse some bizarre delusions that vary from believing that his body is not his, the people like cloned, and other bizarre delusions. Despite this, the patient is not reporting any issues regarding his sleep, appetite, or his day-to-day functioning. He has been adherent with his medication is not reporting any significant side effects at this time. Mental Status Exam: General Appearance: Patient appears to be stated age is alert, directable, and cooperative. Behavior: Patient is calmly lying in bed without any agitated behavior. Speech: Patient's speech is fluent and nonpressured. Monotone, and nonspontaneous. Mood/Affect: Mood is improving mildly, affect is flat. Suicidality/Homicidality: Patient denies having any suicidal or homicidal ideation intent or plan. Perceptions: Patient denies any visual hallucinations but endorses auditory hallucinations. Though content/process: The patient endorses some bizarre delusional thought content. Thought processes otherwise appears to be linear. Memory and concentration: AOX3, grossly intact for the purposes of this session Judgment and insight: Improving mildly Assessment Schizophrenia Alcohol use disorder Plan: -Patient continues to meet criteria for inpatient psychiatric admission for symptom stabilization and safety. -This provider left a message with Dr Jacinto regarding coordination of care. -Medications: Patient received Prolixin Decanoate 50 mg IM. He is currently receiving Prolixin 5 mg by mouth twice a day started in the psychiatric unit and Cogentin 1 mg by mouth twice a day for EPS prophylaxis. -When necessary Ativan and Haldol for agitation/aggression. -SW on board for discharge planning. Encouraged the patient to participate in milieu.
[2021-05-09] MEDS: lisinopriL 20 MG TAB PO SCH (20:29)
[2021-05-10] MEDS: FOLIC ACID 1 MG TAB PO SCH (09:08)
[2021-05-10] MEDS: MULTIVITAMINS, THERA 1 EACH TAB PO SCH (09:08)
[2021-05-10] MEDS: CHOLECALCIFEROL 125 MCG (5000 IU) TABLET PO SCH (09:09)
[2021-05-10] MEDS: atenoloL 50 MG TAB PO SCH (09:09)
[2021-05-10] MEDS: ASPIRIN 81 MG PO SCH (09:09)
[2021-05-10] MEDS: SODIUM CHLORIDE TAB 1 GM TAB PO SCH (09:09)
[2021-05-10] MEDS: PANTOPRAZOLE 40 MG TABLET PO SCH (09:09)
[2021-05-10] MEDS: THIAMINE 100 MG TAB PO SCH (09:10)
[2021-05-10] MEDS: BENZTROPINE MESYLATE 1 MG TAB PO SCH (09:10)
[2021-05-10 09:49] VITALS: BP 132/91; RESP 114; TEMP 98.1
[2021-05-10] MEDS ORDERED: fluPHENAZine DECANOATE 25 MG/ML 5ML MDV IM ONE ×2 (11:04→11:14)
--- NOTE | 2021-05-10 11:39 | P.DS ---
Providers Date of admission: 05/07/21 21:54 Expected date of discharge: 05/10/21 Attending physician: Jim Flores MD Consults: 05/07/21 21:59 Consult Physician Routine Consulting Provider: Ezequiel Physician Consult Reason/Comments: H&P and medical Do you want consulting provider notified?: Yes Primary care physician: [facility] - Discharge Diagnosis(es) (1) Schizophrenia, paranoid, chronic Current Visit: Yes Status: Chronic Priority: High (2) Alcohol abuse Current Visit: Yes Status: Chronic Priority: Medium Hospital Course: Admission HPI: Initial psychiatric evaluation was completed by Dr. Yuen on 05/08/2020 who wrote: "Mr. Tin Askew is a 55-year-old single male who currently lives by himself at his own residence, is on SSD, has psychiatric history of schizophrenia and etoh use. The patient has been admitted on involuntary basis to our service. The patient was long history of schizophrenia and alcohol use disorder who is on Prolixin D and currently being followed by [facility] Dr. Jacinto who is his psychiatrist. Patient was admitted involuntarily to the mental health unit yesterday as he is currently on a substance use disorder which expires in July and also a mental health treatment in order which expires in July as well. Patient was seen wandering the hallways and agreeable to speak to ad copy writer in the office. He rambles during the conversation and was attempting to cooperate however was fairly tangential and illogical. He had loose associations. He asked several times if he can be discharged to "catch my flight of [place] to [place]". He claims that he is trying to go to "[facility]" from a "advice from my family" and spoke about a court case that he is thinking about. He states that it is against someone named "Anibal Sanchesd" and claims that he is hearing his machine adjuster helper speaking to him and voicing auditory hallucinations. He states that "they're professional voices". He claims that he went into [facility] and states that his therapist was trying to give him his Prolixin injection early and he claims that he was refusing it and they called the service desk technician to bring him to the hospital. He states that he is also been drinking up talks imminently a half gallon of rum every 45 days. He is denying any withdrawal symptoms or any history of complicated Withdrawn the past. He claims that his sleep has been fair. He appears to have very poor insight and judgment. He is denying any suicidal or homicidal ideations intent or plan. He is denying any visual hallucinations. He denies any other recreational drug use except for alcohol as noted above." Hospital course: Upon admission to the unit patient was initially presenting with some delusions however was calm and cooperative with staff and peers. He was also endorsing auditory hallucinations however endorse significant insight as to the voices being part of his diagnosis. Patient was restarted on Prolixin 5 mg by mouth twice a day and Cogentin for management of his psychotic symptoms. The following day, the patient displayed significant improvement. He was alert and oriented in all spheres and endorsed significant future orientation. The patient was scheduled for flight to go down to [place] to be with his sister however was admitted to this hospital due to his psychotic symptoms that was concerning for his ACT team. Was confirmed by the patient's family that he did have a flight that he was supposed to be on. The patient continued to be compliant adherent with his medications and on the day of discharge the patient did not report any suicidal or homicidal ideation, intention, and/or plan. He is not reporting any auditory or visual hallucinations at this time. He denies any paranoia or other delusions. The patient expresses a strong desire for discharge with plans to go back down to [place] to see his sister. The patient does report a significant support from his brother and other family members. He is agreeable to receiving the Prolixin Decanoate 50 mg IM today despite the next injection being due on 05/15/2021. He remains future oriented and is able to rationalize. The patient was counseled at length that his alcohol use contributes to his psychotic symptoms on for the patient continues to be somewhat pre-contemplative about this. As the patient presented with no criteria for an inpatient psychiatric admission, he was subsequently discharged. Mental status exam: General Appearance: Patient appears to be stated age is alert, pleasant, and cooperative. Patient is in no acute distress and has fair hygiene and grooming Behavior: Patient is calmly seated without any agitated behavior. Speech: Patient's speech is fluent and nonpressured. Mood/Affect: Patient reports their mood is "I feel fine." Range of affect is appropriate and the patient appears to be somewhat constricted but overall euthymic. Suicidality/Homicidality: Patient denies having any suicidal or homicidal ideation intent or plan. Perceptions: Patient denies any auditory or visual hallucinations. Though content/process: There is no evidence of any delusional thought content and thought process is linear and goal-directed. more future oriented Memory and concentration: AOX3, grossly intact for the purposes of this session. Can spell "WORLD" backwards correctly. Judgment and insight: Improved with guarded prognosis Vital Signs Temp 98.1 F 05/10/21 08:00 Pulse 88 05/09/21 08:50 Resp 114 H 05/10/21 08:00 BP 132/91 05/10/21 08:00 Pulse Ox 100 05/07/21 22:26 Impression: Schizophrenia Alcohol use disorder Plan: -Continue with discharge today as patient has improved and stabilized psychiatrically and is not currently an imminent threat to himself and/or others. The patient will remain elevated risk due to the severity of his mental illness and his alcohol use -Continue medications: -Patient wa the patient received Prolixin decanoate 50 mg IM on 05/10/2021. He'll also be provided with a 14 day prescription of Prolixin oral medication 5 mg twice a day. Cogentin will be continued for EPS side effects. -He was counseled on the need for medication compliance and appropriate follow-up at mental health and also primary care for medical issues. Patient verbalized understanding and agreed. -Social work to arrange for and conduct family meeting to ensure safety upon discharge and answer any questions/concerns. Social work also to arrange for patients follow up appointments with [facility] for psychiatric care along with follow up with primary care provider. -Patient counseled on abstaining from recreational drugs and marijuana and alcohol. Was informed/educated on the adverse effects on their physical and mental health. Patient verbally agreed and understood. Patient was offered substance abuse treatment however declined at this time. -Patient was instructed to return to the hospital or seek immediate medical care if their psychiatric or medical symptoms do worsen or reoccur. -Psychoeducation and supportive therapy provided to patient. Risks and benefits of pharmacological treatment versus the risks and benefits of nontreatment weight and discussed. Informed consent discussion held. Common side effects of psychotropics discussed such as, but not limited to headache, GI disturbance, sexual dysfunction, movement disorders, sedation, and orthostatic hypotension. Life threatening and blackbox warnings of prescribed medications also discussed. Potential risks of operating a vehicle or heavy machinery discussed with patient at length. Advised on importance of compliance and a reliable and responsible manner. Patient advised to review FDA consumer labeling of all medications prior to taking. Patient verbalized understanding of potential risks, and agrees with current treatment plan. Patient advised to medically contact physician/emergency personnel if any acute changes in condition occur. Allergies Allergy/AdvReac Type Severity Reaction Status Date / Time No Known Allergies Allergy Verified 05/07/21 19:13 Laboratory Results WBC 5.1 k/uL (3.8-10.6) 05/08/21 06:44 RBC 4.05 m/uL (4.30-5.90) L 05/08/21 06:44 Hgb 13.4 gm/dL (13.0-17.5) 05/08/21 06:44 Hct 39.5 % (39.0-53.0) 05/08/21 06:44 MCV 97.4 fL (80.0-100.0) 05/08/21 06:44 MCH 33.0 pg (25.0-35.0) 05/08/21 06:44 MCHC 33.9 g/dL (31.0-37.0) 05/08/21 06:44 RDW 14.3 % (11.5-15.5) 05/08/21 06:44 Plt Count 218 k/uL (150-450) 05/08/21 06:44 MPV 7.6 05/08/21 06:44 Neutrophils % 55 % 05/08/21 06:44 Lymphocytes % 25 % 05/08/21 06:44 Monocytes % 8 % 05/08/21 06:44 Eosinophils % 9 % 05/08/21 06:44 Basophils % 1 % 05/08/21 06:44 Neutrophils # 2.8 k/uL (1.3-7.7) 05/08/21 06:44 Lymphocytes # 1.3 k/uL (1.0-4.8) 05/08/21 06:44 Monocytes # 0.4 k/uL (0-1.0) 05/08/21 06:44 Eosinophils # 0.4 k/uL (0-0.7) 05/08/21 06:44 Basophils # 0.1 k/uL (0-0.2) 05/08/21 06:44 Sodium 140 mmol/L (137-145) 05/08/21 06:44 Potassium 4.3 mmol/L (3.5-5.1) 05/08/21 06:44 Chloride 103 mmol/L (98-107) 05/08/21 06:44 Carbon Dioxide 31 mmol/L (22-30) H 05/08/21 06:44 Anion Gap 6 mmol/L 05/08/21 06:44 BUN 12 mg/dL (9-20) 05/08/21 06:44 Creatinine 0.89 mg/dL (0.66-1.25) 05/08/21 06:44 Est GFR (CKD-EPI)AfAm >90 (>60 ml/min/1.73 sqM) 05/08/21 06:44 Est GFR (CKD-EPI)NonAf >90 (>60 ml/min/1.73 sqM) 05/08/21 06:44 Glucose 99 mg/dL (74-99) 05/08/21 06:[address] Glu mg/dL 91 05/08/21 06:44 Hemoglobin A1c 4.8 % (4.0-6.0) 05/08/21 06:44 Calcium 9.7 mg/dL (8.4-10.2) 05/08/21 06:44 Total Bilirubin 1.4 mg/dL (0.2-1.3) H 05/08/21 06:44 AST 31 U/L (17-59) 05/08/21 06:44 ALT 20 U/L (4-49) 05/08/21 06:44 Alkaline Phosphatase 61 U/L (38-126) 05/08/21 06:44 Total Protein 6.6 g/dL (6.3-8.2) 05/08/21 06:44 Albumin 3.8 g/dL (3.5-5.0) 05/08/21 06:44 Triglycerides 35.40 mg/dL (0.00-149.00) 05/08/21 06:44 Cholesterol 119.00 mg/dL (0.00-200.00) 05/08/21 06:44 LDL Cholesterol Direct 29.30 mg/dL (0.00-129.00) 05/08/21 06:44 LDL Cholesterol, Calc mg/dL (0.0-131.0) 05/08/21 06:44 VLDL Cholesterol, Calc mg/dL (5.00-40.00) 05/08/21 06:44 HDL Cholesterol 92.20 mg/dL (40.00-60.00) H 05/08/21 06:44 Cholesterol/HDL Ratio 1.29 Ratio 05/08/21 06:44 TSH 2.180 mIU/L (0.465-4.680) 05/08/21 06:44 Urine Color Light Yellow 05/07/21 23:08 Urine Appearance Clear (Clear) 05/07/21 23:08 Urine pH 7.0 (5.0-8.0) 05/07/21 23:08 Ur Specific [place] 1.005 (1.001-1.035) 05/07/21 23:08 Urine Protein Negative (Negative) 05/07/21 23:08 Urine Glucose (UA) Negative (Negative) 05/07/21 23:08 Urine Ketones Negative (Negative) 05/07/21 23:08 Urine Blood Negative (Negative) 05/07/21 23:08 Urine Nitrite Negative (Negative) 05/07/21 23:08 Urine Bilirubin Negative (Negative) 05/07/21 23:08 Urine Urobilinogen <2.0 mg/dL (<2.0) 05/07/21 23:08 Ur Leukocyte Esterase Negative (Negative) 05/07/21 23:08 Urine Opiates Screen Not Detected (NotDetected) 05/07/21 23:08 Ur Oxycodone Screen Not Detected (NotDetected) 05/07/21 23:08 Urine Methadone Screen Not Detected (NotDetected) 05/07/21 23:08 Ur Propoxyphene Screen Not Detected (NotDetected) 05/07/21 23:08 Ur Barbiturates Screen Not Detected (NotDetected) 05/07/21 23:08 U Tricyclic Antidepress Not Detected (NotDetected) 05/07/21 23:08 Ur Phencyclidine Scrn Not Detected (NotDetected) 05/07/21 23:08 Ur Amphetamines Screen Not Detected (NotDetected) 05/07/21 23:08 U Methamphetamines Scrn Not Detected (NotDetected) 05/07/21 23:08 U Benzodiazepines Scrn Not Detected (NotDetected) 05/07/21 23:08 Urine Cocaine Screen Not Detected (NotDetected) 05/07/21 23:08 U Marijuana (THC) Screen Not Detected (NotDetected) 05/07/21 23:08 Coronavirus (PCR) Not Detected (Not Detectd) 05/07/21 20:32 Patient Condition at Discharge: Stable Plan - Discharge Summary Discharge Rx Participant: No New Discharge Prescriptions: New fluPHENAZine decanoate [Prolixin Decanoate] 50 mg IM [id number] #1 each Benztropine Mesylate [Cogentin] 1 mg PO BID 30 Days tab fluPHENAZine [Prolixin] 5 mg PO BID 14 Days tab Continue Omeprazole 20 mg PO Q48H atenoloL [Tenormin] 50 mg PO BID 30 Days tab Cholecalciferol (Vitamin D3) [Vitamin D3 (125 MCG = 5,000 IU)] 125 mcg PO Q48H Aspirin 81 mg PO DAILY 30 Days tab lisinopriL [Zestril] 20 mg PO HS 30 Days tab Acetaminophen Tab [Tylenol] 650 mg PO TID PRN PRN Reason: Fever And/ Or Pain Naltrexone Microspheres [Vivitrol] 380 mg IM Q28D Discontinued fluPHENAZine decanoate [Prolixin Decanoate] 50 mg IM Q14D Benztropine Mesylate [Cogentin] 2 mg PO BID Discharge Medication List Omeprazole 20 mg PO Q48H 05/14/18 [History] Cholecalciferol (Vitamin D3) [Vitamin D3 (125 MCG = 5,000 IU)] 125 mcg PO Q48H 01/04/21 [History] Aspirin 81 mg PO DAILY 30 Days tab 01/29/21 [Rx] atenoloL [Tenormin] 50 mg PO BID 30 Days tab 01/29/21 [Rx] lisinopriL [Zestril] 20 mg PO HS 30 Days tab 01/29/21 [Rx] Acetaminophen Tab [Tylenol] 650 mg PO TID PRN 05/07/21 [History] Naltrexone Microspheres [Vivitrol] 380 mg IM Q28D 05/07/21 [History] Benztropine Mesylate [Cogentin] 1 mg PO BID 30 Days tab 05/10/21 [Rx] fluPHENAZine [Prolixin] 5 mg PO BID 14 Days tab 05/10/21 [Rx] fluPHENAZine decanoate [Prolixin Decanoate] 50 mg IM [id number] #1 each 05/10/21 [Rx] Follow up Appointment(s)/Referral(s): [facility] [Primary Care Provider] - 1-2 days Patient Instructions/Handouts: Naltrexone (By injection), Schizophrenia (DC), Alcohol Use Disorder (DC) Activity/Diet/Wound Care/Special Instructions: Activity and diet as tolerated. Avoid the use of street drugs and alcohol. Take all medications as prescribed. When you are in need of refills on your medications please contact your medical provider and/or outpatient psychiatrist to have this done. Please go to scheduled outpatient appointment for aftercare treatment. If symptoms return or become worse, call the crisis line at and/or go to the nearest emergency room for evaluation Discharge Disposition: HOME SELF-CARE
[2021-05-15] MEDS ORDERED: fluPHENAZine DECANOATE 25 MG/ML 5ML MDV IM SCH (09:00)
== END 2021-05-10 12:21 | disposition home or self-care (01) | DRG 885 ==
LOC: EC 11:53 → 3MHU 21:54
PROVIDERS: ADMIT Psychiatry & Neurology Psychiatry; ATTEND Psychiatry & Neurology Psychiatry
DX: F20.0 Paranoid schizophrenia (principal); R45.851 Suicidal ideations; F10.10 Alcohol abuse, uncomplicated; I10 Essential (primary) hypertension; Z79.82 Long term (current) use of aspirin; Z79.899 Other long term (current) drug therapy; Z82.49 Family history of ischemic heart disease and other diseases of the circulatory system; K21.9 Gastro-esophageal reflux disease without esophagitis; Z20.822 Contact with and (suspected) exposure to COVID-19
CPT/HCPCS: 80053; 80061; 80306; 81003; 82075; 83036; 83721; 84443; 85025; 87635; 99285

== ENCOUNTER 2021-08-20 20:47 | Observation (INO) | payer MEDICARE, OTHER ==
--- NOTE | 2021-08-20 21:31 | ED ---
Alcohol HPI - General Chief Complaint: Alcohol Stated Complaint: Fall, ETOH Time Seen by Provider: 08/20/21 21:08 Source: patient, EMS Mode of arrival: EMS Limitations: no limitations - History of Present Illness Initial Comments: This patient's 55-year-old man who had been drinking states he fell and struck his nose and face. Patient doesn't think that he was unconscious but he was dazed briefly. Indicating pain to the nose. He denies head, neck, chest or back pain no abdominal pain. Patient denies change in vision or any neurologic symptoms. No dyspnea. 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) Previous Visits for Alcohol Intoxication?: Yes Recent Trauma: Yes Treatments Prior to Arrival: cervical collar Chronic Alcohol Use: Yes - Related Data Home Medications Medication Instructions Recorded Confirmed Omeprazole 20 mg PO Q48H 05/14/18 08/20/21 Cholecalciferol (Vitamin D3) 125 mcg PO Q48H 01/04/21 08/20/21 [Vitamin D3 (125 MCG = 5,000 IU)] Acetaminophen Tab [Tylenol] 650 mg PO TID PRN 05/07/21 08/20/21 Metoprolol Tartrate [Lopressor] 25 mg PO TID 08/20/21 08/20/21 fluPHENAZine decanoate [Prolixin 50 mg IM Q28D 08/20/21 08/20/21 Decanoate] Previous Rx's Medication Instructions Recorded Aspirin 81 mg PO DAILY 30 Days tab 01/29/21 lisinopriL [Zestril] 20 mg PO HS 30 Days tab 01/29/21 Allergies Allergy/AdvReac Type Severity Reaction Status Date / Time No Known Allergies Allergy Verified 05/07/21 19:13 Review of Systems ROS Statement: Those systems with pertinent positive or pertinent negative responses have been documented in the HPI. ROS Other: All systems not noted in ROS Statement are negative. Constitutional: Denies: fever Eyes: Denies: vision change Respiratory: Denies: cough, dyspnea Cardiovascular: Denies: chest pain, syncope Gastrointestinal: Reports: nausea. Denies: abdominal pain, vomiting Genitourinary: Denies: dysuria, hematuria, testicular pain Musculoskeletal: Denies: back pain Skin: Denies: rash Neurological: Denies: headache, weakness, numbness Past Medical History Past Medical History: GERD/Reflux, Hypertension Additional Past Medical History / Comment(s): VARICOSE VEINS. History of Any Multi-Drug Resistant Organisms: None Reported Past Surgical History: No Surgical Hx Reported Additional Past Surgical History / Comment(s): TOOTH EXTRACTIONS Past Anesthesia/Blood Transfusion Reactions: No Reported Reaction Additional Past Anesthesia/Blood Transfusion Reaction / Comment(s): Never had Past Psychological History: Anxiety, Depression, Schizophrenia Smoking Status: Never smoker Past Alcohol Use History: Heavy Past Drug Use History: None Reported - Past Family History Father Family Medical History: Myocardial Infarction ([place]) Additional Family Medical History / Comment(s): AT AGE 58 FROM [place] Mother Family Medical History: Deep Vein Thrombosis (DVT), Hypertension Additional Family Medical History / Comment(s): PRIMARY PULMONARY HYPERTENSION General Exam Limitations: no limitations General appearance: alert, appears intoxicated Head exam: Present: normocephalic Eye exam: Present: PERRL, EOMI, nystagmus, periorbital swelling. Absent: scleral icterus, conjunctival injection ENT exam: Present: normal oropharynx, TM's normal bilaterally, other (There is swelling to the nose and tenderness on exam. No obvious displacement. Abrasion to bridge of nose. Lip swelling and abrasion) Neck exam: Present: normal inspection, other (Cervical collar). Absent: tenderness Respiratory exam: Present: normal lung sounds bilaterally. Absent: respiratory distress, wheezes, rales, rhonchi, stridor, chest wall tenderness Cardiovascular Exam: Present: normal rhythm, tachycardia, normal heart sounds. Absent: systolic murmur, diastolic murmur, rubs, gallop GI/Abdominal exam: Present: soft. Absent: distended, tenderness, guarding, rebound, rigid, mass Extremities exam: Present: normal inspection, normal capillary refill. Absent: pedal edema, calf tenderness Back exam: Present: normal inspection. Absent: CVA tenderness (R), CVA tenderness (L), vertebral tenderness Neurological exam: Present: alert Skin exam: Present: warm, dry, intact, normal color. Absent: rash Course Vital Signs 08/20/21 08/20/21 08/21/21 20:55 23:30 00:10 Temperature 97.8 F Pulse Rate 126 H 129 H 130 H Respiratory 18 22 20 Rate Blood Pressure 172/130 147/97 159/101 O2 Sat by Pulse 95 97 94 L Oximetry 08/21/21 08/21/21 02:01 05:00 Temperature Pulse Rate 118 H 117 H Respiratory 20 20 Rate Blood Pressure 154/91 117/93 O2 Sat by Pulse 94 L 95 Oximetry Medical Decision Making - Medical Decision Making Patient is 55-year-old man here with fall and intoxication. Alcohol level is elevated and patient still manifesting withdrawal. Patient will be admitted initially under trauma surgery as fall is his presentation. Ativan protocol for withdrawal. Patient's brother was in and I did discuss with him rationale for maintaining c- collar as ATLS guidelines is to have clearing of C-spine on sobriety. - Lab Data Result diagrams: 08/20/21 21:21 08/20/21 21:21 Lab Results 08/20/21 08/20/21 Range/Units 21:21 21:21 WBC 5.5 (3.8-10.6) k/uL RBC 4.58 (4.30-5.90) m/uL Hgb 15.6 (13.0-17.5) gm/dL Hct 44.4 (39.0-53.0) % MCV 96.9 (80.0-100.0) fL MCH 34.1 (25.0-35.0) pg MCHC 35.2 (31.0-37.0) g/dL RDW 13.3 (11.5-15.5) % Plt Count 183 (150-450) k/uL MPV 7.1 Neutrophils % (Manual) 56 % Band Neuts % (Manual) 1 % Lymphocytes % (Manual) 31 % Monocytes % (Manual) 10 % Eosinophils % (Manual) 2 % Neutrophils # (Manual) 3.10 (1.3-7.7) k/uL Lymphocytes # (Manual) 1.71 (1.0-4.8) k/uL Monocytes # (Manual) 0.55 (0-1.0) k/uL Eosinophils # (Manual) 0.11 (0-0.7) k/uL Nucleated RBCs 0 (0-0) /100 WBC Manual Slide Review Performed Anisocytosis (manual) Present Sodium 130 L (137-145) mmol/L Potassium 3.8 (3.5-5.1) mmol/L Chloride 93 L (98-107) mmol/L Carbon Dioxide 21 L (22-30) mmol/L Anion Gap 16 mmol/L BUN 5 L (9-20) mg/dL Creatinine 0.54 L (0.66-1.25) mg/dL Est GFR (CKD-EPI)AfAm >90 (>60 ml/min/1.73 sqM) Est GFR (CKD-EPI)NonAf >90 (>60 ml/min/1.73 sqM) Glucose 102 H (74-99) mg/dL Calcium 9.0 (8.4-10.2) mg/dL Total Bilirubin 1.1 (0.2-1.3) mg/dL AST 48 (17-59) U/L ALT 33 (4-49) U/L Alkaline Phosphatase 72 (38-126) U/L Total Protein 8.4 H (6.3-8.2) g/dL Albumin 5.2 H (3.5-5.0) g/dL Serum Alcohol 324 H* mg/dL Disposition Clinical Impression: Alcoholic intoxication, Alcohol withdrawal syndrome, Nasal bone fracture, Fall Disposition: ADMITTED IP TO THIS HOSP Condition: Fair Is patient prescribed a controlled substance at d/c from ED?: No
[2021-08-20 21:49] LABS: ALT 33 U/L (4-49); AST 48 U/L (17-59); African American GFR (CKD) >90 (>60 ml/min/1.73 sqM); Albumin 5.2 g/dL (3.5-5.0); Alkaline Phosphatase 72 U/L (38-126); Anion Gap 16 mmol/L; Blood Urea Nitrogen 5 mg/dL (9-20); Carbon Dioxide 21 mmol/L (22-30); Chloride 93 mmol/L (98-107); Glucose 102 mg/dL (74-99); Non-African American GFR(CKD) >90 (>60 ml/min/1.73 sqM); Potassium 3.8 mmol/L (3.5-5.1); Sodium 130 mmol/L (137-145); Total Bilirubin 1.1 mg/dL (0.2-1.3); Total Protein 8.4 g/dL (6.3-8.2)
[2021-08-20 22:00] LABS: Alcohol 324 mg/dL
--- NOTE | 2021-08-20 22:12 | CT ---
EXAMINATION TYPE: CT brain cspine wo con DATE OF EXAM: 08/20/2021 COMPARISON: CT brain 11/18/2019 HISTORY: FALL CT DLP: combined 1208.3 mGycm Automated exposure control for dose reduction was used. There is some cerebral cortical atrophy. There is no mass effect or midline shift. There is no sign o f intracranial hemorrhage. Calvarium is intact. There is normal aeration of the mastoid sinuses. Cervical vertebrae abnormal alignment. There is degenerative anterior spurring at C4-5 and C5-6. Face t joints are intact. No compression fracture. IMPRESSION: Hypertrophic anterior spurring. No significant disc space narrowing. No fracture of the cervical spin e. Cerebral atrophy. No acute intracranial abnormality. No adverse change.
[2021-08-20 22:15] LABS: HCT 44.4 % (39.0-53.0); HGB 15.6 gm/dL (13.0-17.5); MCH 34.1 pg (25.0-35.0); MCHC 35.2 g/dL (31.0-37.0); MCV 96.9 fL (80.0-100.0); Mean Platelet Volume 7.1; Platelet Count 183 k/uL (150-450); RBC 4.58 m/uL (4.30-5.90); RDW 13.3 % (11.5-15.5); WBC 5.5 k/uL (3.8-10.6)
--- NOTE | 2021-08-20 22:16 | CT ---
EXAMINATION TYPE: CT facial bones wo con DATE OF EXAM: 08/20/2021 COMPARISON: 04/23/2015 HISTORY: FALL CT DLP: combined 1208.3 mGycm Automated exposure control for dose reduction was used. Images obtained from the bottom of the mandible to the top of the frontal sinuses without contrast. The mandibular ring is intact. Temporomandibular joints are intact. Zygomatic arches appear normal. T he maxilla is intact. There is nasal bone fracture with deviation to the left side. The orbital margins are intact. There is no evidence of orbital blowout fracture. There is no retro-o rbital mass. Submandibular salivary glands appear normal. Parotid glands are intact. There is soft ti ssue swelling around the nose and anterior to the maxilla. There is mild mucosal thickening left maxi llary sinus. IMPRESSION: Nasal bone fracture. Paranasal soft tissue swelling. Mild left maxillary sinusitis improved compared to old exam. Nasal bone fracture and swelling appear new compared to old exam.
[2021-08-20 22:49] LABS: Band Neutrophils % 1 %; Eosinophils # (M) 0.11 k/uL (0-0.7); Lymphocytes # (M) 1.71 k/uL (1.0-4.8); Monocytes # (M) 0.55 k/uL (0-1.0); Neutrophils % (M) 56 %; Nucleated Red Blood Cells 0 /100 WBC (0-0); Total Cells Counted 100
[2021-08-20 22:51] LABS: Anisocytosis (M) Present
[2021-08-20] MEDS ORDERED: SODIUM CHLORIDE 0.9% 1,000 ML IV ONE (23:25)
[2021-08-20] MEDS ORDERED: SODIUM CHLORIDE 0.9% 1,000 ML IV STA (23:25)
[2021-08-20] MEDS ORDERED: LORazepam 2 MG/ML INJ IV STA (23:26)
[2021-08-20] MEDS ORDERED: NALOXONE 0.4 MG/ML 1 ML VIAL IV PRN (23:33)
[2021-08-20] MEDS ORDERED: ONDANSETRON 4 MG/2 ML VIAL IVP PRN (23:33)
[2021-08-21] MEDS: SODIUM CHLORIDE 0.9% 1,000 ML IV SCH ×2 (00:17→11:28)
--- NOTE | 2021-08-21 00:51 | CT ---
EXAMINATION TYPE: CT abdomen pelvis w con DATE OF EXAM: 08/21/2021 COMPARISON: None HISTORY: pain CT DLP: 1268.8 mGycm Automated exposure control for dose reduction was used. CONTRAST: Performed with IV Contrast, patient injected with 100 mL of Isovue 300. Images obtained from the diaphragm to the floor of the pelvis with IV contrast. Lung bases are clear. There is no pleural effusion. Heart size is fairly normal. No pericardial effus ion. There is no hilar mass. There is fatty infiltration of the liver. Spleen is intact. There is no pancreatic mass. The bile brennen t are not dilated. There are numerous calcified gallstones. Stomach is intact. There is no adrenal mass. Kidneys have normal size. No hydronephrosis. The ureters are not dilated. A ppendix is posterior and appears normal. Bladder distends smoothly. Urinary bladder is dilated and me asures 22 cm in length. There is no inguinal hernia. No free fluid in the pelvis. There is no mesenteric edema. No ascites or free air. No bowel obstruction. Delayed images show [place] l renal excretion. The lumbar vertebrae have normal alignment. There is L1 anterior wedging 30% that appears old. No acu te fracture seen. The bony pelvis is intact. The hip joints are intact. IMPRESSION: Dilated urinary bladder is suggestive of bladder outlet obstruction. Old L1 compression fracture. Normal appendix. Fatty liver. Cholelithiasis.
[2021-08-21] MEDS ORDERED: LORazepam 2 MG/ML INJ IV PRN ×2 (01:25)
[2021-08-21] MEDS ORDERED: THIAMINE 100 MG TAB PO SCH (07:30)
[2021-08-21] MEDS ORDERED: METOPROLOL TARTRATE 5 MG/5 ML VIAL IVP STA (07:34)
--- NOTE | 2021-08-21 08:43 | P.HPIM ---
History of Present Illness H&P Date: 08/21/21 History of Presenting Illness: Patient is a Review of systems: Pertinent positives and negatives as discussed in HPI, a complete review of systems was performed and all other systems are negative. Physical exam: Vital signs reviewed and stable. General: Nontoxic, no distress and appears stated age. Derm: Skin warm and dry, normal coloration for ethnicity. Head: Atraumatic, normocephalic and symmetric. Eyes: EOMs intact, no lid lag, and anicteric sclera Mouth: no lip lesions, mucus membranes moist Cardiovascular: regular rate and rhythm with normal S1S2, no murmur, positive posterior tibial pulses bilaterally, and cap refill < 2 seconds. Lungs: Respirations even, regular, and unlabored on room air. Lungs CTA bilaterally, no rhonchi, no rales, no wheezing, and no accessory muscle usage. Abdominal: soft, nontender to palpation, no guarding, no appreciable organomegaly Ext: ROM intact. No gross muscle atrophy, no edema, no contractures Neuro: Speech clear, face symmetrical and CN II-XII grossly intact with no noted focal neuro deficits Psych: Alert and oriented to person, place, time, and situation. Appropriate and pleasant affect. Assessment and Plan of Care: The patient is admitted with an anticipated greater than 2 midnight stay for evaluation of []. Surrogate decision-maker: [] CODE STATUS:[] DVT prophylaxis: [] Discussed with: [] Anticipated discharge date: [] Anticipated discharge place: [] A total of [] minutes was spent on the care of this complex patient more than 50% of the time was spent in counseling and care coordination. Past Medical History Past Medical History: GERD/Reflux, Hypertension Additional Past Medical History / Comment(s): VARICOSE VEINS. History of Any Multi-Drug Resistant Organisms: None Reported Past Surgical History: No Surgical Hx Reported Additional Past Surgical History / Comment(s): TOOTH EXTRACTIONS Past Anesthesia/Blood Transfusion Reactions: No Reported Reaction Additional Past Anesthesia/Blood Transfusion Reaction / Comment(s): Never had Past Psychological History: Anxiety, Depression, Schizophrenia Smoking Status: Never smoker Past Alcohol Use History: Heavy Past Drug Use History: None Reported - Past Family History Father Family Medical History: Myocardial Infarction ([place]) Additional Family Medical History / Comment(s): AT AGE 58 FROM [place] Mother Family Medical History: Deep Vein Thrombosis (DVT), Hypertension Additional Family Medical History / Comment(s): PRIMARY PULMONARY HYPERTENSION Medications and Allergies Home Medications Medication Instructions Recorded Confirmed Type Omeprazole 20 mg PO Q48H 05/14/18 08/20/21 History Cholecalciferol (Vitamin D3) 125 mcg PO Q48H 01/04/21 08/20/21 History [Vitamin D3 (125 MCG = 5,000 IU)] Aspirin 81 mg PO DAILY 30 Days tab 01/29/21 08/20/21 Rx lisinopriL [Zestril] 20 mg PO HS 30 Days tab 01/29/21 08/20/21 Rx Acetaminophen Tab [Tylenol] 650 mg PO TID PRN 05/07/21 08/20/21 History Metoprolol Tartrate [Lopressor] 25 mg PO TID 08/20/21 08/20/21 History fluPHENAZine decanoate [Prolixin 50 mg IM Q28D 08/20/21 08/20/21 History Decanoate] Allergies Allergy/AdvReac Type Severity Reaction Status Date / Time No Known Allergies Allergy Verified 05/07/21 19:13 Physical Exam Vitals: Vital Signs Temp Pulse Resp BP Pulse Ox 08/21/21 07:45 101 H 18 147/90 94 L 08/21/21 07:40 119 H 148/90 08/21/21 06:47 116 H 22 136/104 94 L 08/21/21 05:00 117 H 20 117/93 95 08/21/21 02:01 118 H 20 154/91 94 L 08/21/21 00:10 130 H 20 159/101 94 L 08/20/21 23:30 129 H 22 147/97 97 08/20/21 20:55 97.8 F 126 H 18 172/130 95 Intake and Output 08/20/21 08/21/21 08/21/21 22:59 06:59 14:59 Other: Weight 90.718 kg Results CBC & Chem 7: 08/20/21 21:21 08/20/21 21:21 Labs: Abnormal Lab Results - Last 24 Hours (Table) 08/20/21 Range/Units 21:21 Sodium 130 L (137-145) mmol/L Chloride 93 L (98-107) mmol/L Carbon Dioxide 21 L (22-30) mmol/L BUN 5 L (9-20) mg/dL Creatinine 0.54 L (0.66-1.25) mg/dL Glucose 102 H (74-99) mg/dL Total Protein 8.4 H (6.3-8.2) g/dL Albumin 5.2 H (3.5-5.0) g/dL Serum Alcohol 324 H* mg/dL
--- NOTE | 2021-08-21 08:46 | P.CONS ---
History of Present Illness - Reason for Consult Consult date: 08/21/21 EtOH intoxication Requesting physician: Alfredo Mason - Chief Complaint Etoh intoxication, facial trauma resulting in nasal bone fx - History of Present Illness History of Presenting Illness: Patient is a very pleasant 52 year old male with a PMH of alcoholism reporting drinking at least one fifth of alcohol daily for many years. He presented to the ER overnight status post fall resulting in facial trauma. Patient was running to catch the pus and reportedly slipped on ice landing directly on his face. In the emergency department patient was found to be intoxicated with blood alcohol level of 324. CT head negative for acute intercranial process, CT cervical spine revealing hypertrophic anterior spurring with no significant disc space narrowing and negative for acute fracture. CT face revealing Nasal bone fracture with paranasal soft tissue swelling. CT abdomen and pelvis revealing Old L1 compression fracture, Dilated urinary bladder suggestive of possible bladder outlet obstruction (patient reported having a full bladder and is ur inating without difficulties and denied any complaints). He was admitted under general surgery team and we were consulted for medical management throughout hospitalization. Patient was seen and fully evaluated at the bedside this morning. Patient had mild tremors. Patient appears to be showing signs of withdrawal at this time, discussed with patient possible rehab and/or outpatient treatment programs. Patient declined. Patient states he is aware he has a problem but he enjoys his problem and does not plan on quitting alcohol use. Patient currently reports mild discomfort at bridge of nose and slight headache otherwise denies having any complaints including dizziness, lightheadedness, changes in vision, changes in hearing, dysphasia, chest pain, palpitations, shortness of breath, or experiencing any numbness/tingling/weakness in his extremities. He T abdomen did show a distended bladder, patient reports urinating without any difficulties and denies having any retention, difficulties initiating a stream, hematuria, dysuria, frequency, or urgency. Patient is Review of systems: Pertinent positives and negatives as discussed in HPI, a complete review of systems was performed and all other systems are negative. Physical exam: Vital signs reviewed and stable. General: Nontoxic, no distress and appears stated age. Derm: Skin warm and dry, normal coloration for ethnicity. Head: Atraumatic, normocephalic and symmetric. Dried Blood in bilateral nares and swelling of bridge of nose and surrounding region. Eyes: EOMs intact, no lid lag, and anicteric sclera Mouth: no lip lesions, mucus membranes moist. No upper teeth. dried blood on bottom lip. Cardiovascular: regular rate and rhythm with normal S1S2, no murmur, positive posterior tibial pulses bilaterally, and cap refill < 2 seconds. Lungs: Respirations even, regular, and unlabored on room air. Lungs CTA bilat erally, no rhonchi, no rales, no wheezing, and no accessory muscle usage. Abdominal: soft, nontender to palpation, no guarding, no appreciable organomegaly Ext: ROM intact. No gross muscle atrophy, no edema, no contractures Neuro: Speech clear, face symmetrical and CN II-XII grossly intact with no noted focal neuro deficits.Mild tremors noted. Psych: Alert and oriented to person, place, time, and situation. Appropriate and pleasant affect. Assessment and Plan of Care: Alcohol intoxication pending withdrawal -CIWA Protocol with symptom triggered medication management with benzodiazepines. -Banana bag 1 dose followed by continuous IV hydration. -Thiamine 100 mg twice a day -Multivitamin daily -Folate 1 mg daily -Seizure, fall, aspiration, and elopement precautions in place. -Urine drug screen -Continued close monitoring of electrolytes and replace as needed. -Telemetry monitoring. Facial trauma resulting in nasal bone fracture -Management per primary admitting general surgery team. -Recommend continuing prophylactic antibiotics with Keflex -Symptomatic care and pain management. Thank you for allowing us to participate in the care of this pleasant patient. Do not hesitate to contact us with questions. Someone can be reached from the [facility] hospitalist group all hours of the day at [phone] or via [employer]. Past Medical History Past Medical History: GERD/Reflux, Hypertension, Vascular Disorder Additional Past Medical History / Comment(s): ETOH abuse, alcohol withdrawl with tremens, diverticular disease, benign colon polyp, varicose veins. History of Any Multi-Drug Resistant Organisms: None Reported Past Surgical History: No Surgical Hx Reported Additional Past Surgical History / Comment(s): Teeth extractions, colonoscopies. Past Anesthesia/Blood Transfusion Reactions: No Reported Reaction Additional Past Anesthesia/Blood Transfusion Reaction / Comm: Never had Past Psychological History: Anxiety, Depression, Schizophrenia Additional Psychological History / Comment(s): Pt resides with his brother, Bert Askew. Pt does not drive, his brother drives him or he takes the bus. He goes to [facility]. He manages his own medications. Smoking Status: Never smoker Past Alcohol Use History: Heavy Additional Past Alcohol Use History / Comment(s): Pt has ETOH abuse Past Drug Use History: None Reported - Past Family History Father Family Medical History: Myocardial Infarction ([place]) Additional Family Medical History / Comment(s): AT AGE 58 FROM [place] Mother Family Medical History: Deep Vein Thrombosis (DVT), Hypertension Additional Family Medical History / Comment(s): PRIMARY PULMONARY HYPERTENSION Medications and Allergies Home Medications Medication Instructions Recorded Confirmed Type Omeprazole 20 mg PO Q48H 05/14/18 08/20/21 History Cholecalciferol (Vitamin D3) 125 mcg PO Q48H 01/04/21 08/20/21 History [Vitamin D3 (125 MCG = 5,000 IU)] Aspirin 81 mg PO DAILY 30 Days tab 01/29/21 08/20/21 Rx lisinopriL [Zestril] 20 mg PO HS 30 Days tab 01/29/21 08/20/21 Rx Acetaminophen Tab [Tylenol] 650 mg PO TID PRN 05/07/21 08/20/21 History Metoprolol Tartrate [Lopressor] 25 mg PO TID 08/20/21 08/20/21 History fluPHENAZine decanoate [Prolixin 50 mg IM Q28D 08/20/21 08/20/21 History Decanoate] Thiamine [Vitamin B-1] 100 mg PO BID-W/MEALS tab 08/21/21 Rx Allergies Allergy/AdvReac Type Severity Reaction Status Date / Time No Known Allergies Allergy Verified 08/21/21 08:56 Physical Exam Vitals: Vital Signs Temp Pulse Resp BP Pulse Ox 08/21/21 07:45 101 H 18 147/90 94 L 08/21/21 07:40 119 H 148/90 08/21/21 06:47 116 H 22 136/104 94 L 08/21/21 05:00 117 H 20 117/93 95 08/21/21 02:01 118 H 20 154/91 94 L 08/21/21 00:10 130 H 20 159/101 94 L 08/20/21 23:30 129 H 22 147/97 97 08/20/21 20:55 97.8 F 126 H 18 172/130 95 Intake and Output 08/20/21 08/21/21 08/21/21 22:59 06:59 14:59 Other: Weight 90.718 kg Results CBC & Chem 7: 08/20/21 21:21 08/20/21 21:21 Labs: Abnormal Lab Results - Last 24 Hours (Table) 08/20/21 Range/Units 21:21 Sodium 130 L (137-145) mmol/L Chloride 93 L (98-107) mmol/L Carbon Dioxide 21 L (22-30) mmol/L BUN 5 L (9-20) mg/dL Creatinine 0.54 L (0.66-1.25) mg/dL Glucose 102 H (74-99) mg/dL Total Protein 8.4 H (6.3-8.2) g/dL Albumin 5.2 H (3.5-5.0) g/dL Serum Alcohol 324 H* mg/dL
[2021-08-21 08:49] VITALS: TEMP 98.5
[2021-08-21] MEDS ORDERED: FAMOTIDINE 20 MG TAB PO SCH (09:00)
[2021-08-21] MEDS ORDERED: METOPROLOL TARTRATE 25 MG TAB PO SCH (09:00)
[2021-08-21] MEDS: CEPHALEXIN 500 MG CAP PO SCH ×2 (09:15→12:50)
[2021-08-21] MEDS: LORazepam 2 MG/ML INJ IV PRN ×2 (09:16→15:09)
[2021-08-21] MEDS: ACETAMINOPHEN TAB 325 MG TAB PO PRN ×2 (09:17→14:30)
--- NOTE | 2021-08-21 14:00 | P.GSHP ---
History of Present Illness H&P Date: 08/21/21 CHIEF COMPLAINT: Fall with facial trauma HISTORY OF PRESENT ILLNESS: This is a 55-year-old male with a known history of alcohol abuse. Apparently he was trying to catch the bus. He was running and fell landing on his face. His face hit the cement. He denies any loss of consciousness. His nose was bleeding and he was having a lot of pain. He had evidence of alcohol intoxication. On admission he did have elevated alcohol level. He had a computed tomography scan of the facial bones that did show a nasal fracture. Otherwise all and other imaging showed no evidence of any acute problems. Patient is tolerating diet. He has been up and ambulating. His nasal pain is controlled. He denies any nausea or vomiting. He is no longer having any bleeding from his nose. He denies any abdominal pain. Patient denies any difficulty urinating. He is having flatus. Patient admitted to trauma service. PAST MEDICAL HISTORY: GERD/Reflux, Hypertension PAST SURGICAL HISTORY: See list. MEDICATIONS: See list. ALLERGIES: See list. SOCIAL HISTORY: Alcohol abuse REVIEW OF SYSTEMS: CONSTITUTIONAL: Denies fever or chills. HEENT: Denies blurred vision, vision changes, or eye pain. Denies hemoptysis CARDIOVASCULAR: Denies chest pain or pressure. RESPIRATORY: No shortness of breath. GASTROINTESTINAL: See HPI for pertinent findings HEMATOLOGIC: Denies bleeding disorders. GENITOURINARY: Denies any blood in urine or increased urinary frequency. SKIN: Denies pruitis. Denies rash. PHYSICAL EXAM: VITAL SIGNS: Reviewed GENERAL: Well-developed in no acute distress. HEENT: No sclera icterus. Extraocular movements grossly intact. Moist buccal mucosa. Head is patient has dried crusting blood noted along the nares. His nose is swollen. Does have a small laceration at the bridge of the nose that is Over. ABDOMEN: Soft. Nondistended. Tenderness with palpation to right lower quadrant. NEUROLOGIC: Alert and oriented. Cranial nerves II through XII grossly intact. LABORATORY DATA: WBC is 5.5 hgb 15.6 platelets 183 Sodium is 1:30 potassium is 3.8 creatinine 0.54 Glucose 102 LFTs normal Albumin 5.2 Serum alcohol level 324 IMAGING: Computed tomography scan of the head and cervical spine hypertrophic anterior spurring. No significant narrowing. No fracture of cervical spine. Cerebral atrophy. No acute intracranial abnormality. Facial CT. Nasal bone fracture. Paranasal soft tissue swelling. Mild left maxillary sinusitis improved compared to old exam. Nasal bone fracture and swelling appear new compared to old exam Computed tomography scan abdomen and pelvis showing dilated urinary bladder is suggestive of bladder outlet obstruction. Old L1 compression fracture. Normal appendix. Fatty liver. Cholelithiasis. ASSESSMENT: 1. Fall with nasal fracture 2. Alcohol intoxication PLAN: -Continue supportive care -Medical service consulted for medical management -Continue ice packs as needed for nasal fracture -Patient follow-up with ENT service outpatient regarding nasal fracture -CIWA protocol added for alcohol trauma -Continue regular diet -Continue pain medication as needed -Encourage patient to ambulate -Patient to be discharged later this afternoon when medically cleared Physician Laboratory Inspector note has been reviewed by physician. Signing provider agrees with the documented findings, assessment, and plan of care. Past Medical History Past Medical History: GERD/Reflux, Hypertension, Vascular Disorder Additional Past Medical History / Comment(s): ETOH abuse, alcohol withdrawl with tremens, diverticular disease, benign colon polyp, varicose veins. History of Any Multi-Drug Resistant Organisms: None Reported Past Surgical History: No Surgical Hx Reported Additional Past Surgical History / Comment(s): Teeth extractions, colonoscopies. Past Anesthesia/Blood Transfusion Reactions: No Reported Reaction Additional Past Anesthesia/Blood Transfusion Reaction / Comment(s): Never had Past Psychological History: Anxiety, Depression, Schizophrenia Additional Psychological History / Comment(s): Pt resides with his brother, Bert Askew. Pt does not drive, his brother drives him or he takes the bus. He goes to [facility]. He manages his own medications. Smoking Status: Never smoker Past Alcohol Use History: Heavy Additional Past Alcohol Use History / Comment(s): Pt has ETOH abuse Past Drug Use History: None Reported - Past Family History Father Family Medical History: Myocardial Infarction ([place]) Additional Family Medical History / Comment(s): AT AGE 58 FROM [place] Mother Family Medical History: Deep Vein Thrombosis (DVT), Hypertension Additional Family Medical History / Comment(s): PRIMARY PULMONARY HYPERTENSION Medications and Allergies Home Medications Medication Instructions Recorded Confirmed Type Omeprazole 20 mg PO Q48H 05/14/18 08/20/21 History Cholecalciferol (Vitamin D3) 125 mcg PO Q48H 01/04/21 08/20/21 History [Vitamin D3 (125 MCG = 5,000 IU)] Aspirin 81 mg PO DAILY 30 Days tab 01/29/21 08/20/21 Rx lisinopriL [Zestril] 20 mg PO HS 30 Days tab 01/29/21 08/20/21 Rx Acetaminophen Tab [Tylenol] 650 mg PO TID PRN 05/07/21 08/20/21 History Metoprolol Tartrate [Lopressor] 25 mg PO TID 08/20/21 08/20/21 History fluPHENAZine decanoate [Prolixin 50 mg IM Q28D 08/20/21 08/20/21 History Decanoate] Allergies Allergy/AdvReac Type Severity Reaction Status Date / Time No Known Allergies Allergy Verified 08/21/21 08:56 Surgical - Exam Vital Signs Temp Pulse Resp BP Pulse Ox 97.8 F 126 H 18 172/130 95 08/20/21 20:55 08/20/21 20:55 08/20/21 20:55 08/20/21 20:55 08/20/21 20:55 Results - Labs 08/20/21 21:21 08/20/21 21:21 Abnormal Lab Results - Last 24 Hours (Table) 08/20/21 Range/Units 21:21 Sodium 130 L (137-145) mmol/L Chloride 93 L (98-107) mmol/L Carbon Dioxide 21 L (22-30) mmol/L BUN 5 L (9-20) mg/dL Creatinine 0.54 L (0.66-1.25) mg/dL Glucose 102 H (74-99) mg/dL Total Protein 8.4 H (6.3-8.2) g/dL Albumin 5.2 H (3.5-5.0) g/dL Serum Alcohol 324 H* mg/dL Diabetes panel 08/20/21 Range/Units 21:21 Sodium 130 L (137-145) mmol/L Potassium 3.8 (3.5-5.1) mmol/L Chloride 93 L (98-107) mmol/L Carbon Dioxide 21 L (22-30) mmol/L BUN 5 L (9-20) mg/dL Creatinine 0.54 L (0.66-1.25) mg/dL Glucose 102 H (74-99) mg/dL Calcium 9.0 (8.4-10.2) mg/dL AST 48 (17-59) U/L ALT 33 (4-49) U/L Alkaline Phosphatase 72 (38-126) U/L Total Protein 8.4 H (6.3-8.2) g/dL Albumin 5.2 H (3.5-5.0) g/dL Calcium panel 08/20/21 Range/Units 21:21 Calcium 9.0 (8.4-10.2) mg/dL Albumin 5.2 H (3.5-5.0) g/dL Pituitary panel 08/20/21 Range/Units 21:21 Sodium 130 L (137-145) mmol/L Potassium 3.8 (3.5-5.1) mmol/L Chloride 93 L (98-107) mmol/L Carbon Dioxide 21 L (22-30) mmol/L BUN 5 L (9-20) mg/dL Creatinine 0.54 L (0.66-1.25) mg/dL Glucose 102 H (74-99) mg/dL Calcium 9.0 (8.4-10.2) mg/dL Adrenal panel 08/20/21 Range/Units 21:21 Sodium 130 L (137-145) mmol/L Potassium 3.8 (3.5-5.1) mmol/L Chloride 93 L (98-107) mmol/L Carbon Dioxide 21 L (22-30) mmol/L BUN 5 L (9-20) mg/dL Creatinine 0.54 L (0.66-1.25) mg/dL Glucose 102 H (74-99) mg/dL Calcium 9.0 (8.4-10.2) mg/dL Total Bilirubin 1.1 (0.2-1.3) mg/dL AST 48 (17-59) U/L ALT 33 (4-49) U/L Alkaline Phosphatase 72 (38-126) U/L Total Protein 8.4 H (6.3-8.2) g/dL Albumin 5.2 H (3.5-5.0) g/dL
--- NOTE | 2021-08-21 14:06 | P.DS ---
Providers Date of admission: 08/20/21 23:33 Expected date of discharge: 08/21/21 Attending physician: Alfredo Mason Consults: 08/20/21 23:34 Consult Physician Routine Consulting Provider: Bert Carrillo Reason/Comments: Your patient. Alcohol withdrawal Do you want consulting provider notified?: Yes Primary care physician: Bert Carrillo Hospital Course: Discharge diagnosis 1. Fall with nasal fracture 2. Alcohol intoxication 3. Hyponatremia likely secondary to patient's chronic alcohol abuse Hospital course his is a 55-year-old male with a known history of alcohol abuse. Apparently he was trying to catch the bus. He was running and fell landing on his face. His face hit the cement. He denies any loss of consciousness. His nose was bleeding and he was having a lot of pain. He had evidence of alcohol intoxication. On admission he did have elevated alcohol level. He had a computed tomography scan of the facial bones that did show a nasal fracture. Computed tomography scan of the head and cervical spine hypertrophic anterior spurring. No significant narrowing. No fracture of cervical spine. Cerebral atrophy. No acute intracranial abnormality. Facial CT demonstrated Nasal bone fracture. Paranasal soft tissue swelling. Mild left maxillary sinusitis improved compared to old exam. Nasal bone fracture and swelling appear new compared to old exam. Computed tomography scan abdomen and pelvis showing dilated urinary bladder is suggestive of bladder outlet obstruction. Old L1 compression fracture. Normal appendix. Fatty liver. Cholelithiasis. Patient is tolerating diet. His pain is controlled. He denies any nausea or vomiting. He is no longer having any bleeding from his nose. He denies any abdominal pain. Patient denies any difficulty urinating or fully emptying the bladder. He is having flatus. Patient is afebrile. He has been up and ambulating. Patient has been cleared by medical service for discharge. We'll patient foll ow-up with ENT service outpatient regarding nasal fracture. Patient is stable for discharge. Please refer to chart for any further details. Physician Piano Refinisher note has been reviewed by physician. Signing provider agrees with the documented findings, assessment, and plan of care. Patient Condition at Discharge: Stable Plan - Discharge Summary Discharge Rx Participant: No New Discharge Prescriptions: New Thiamine [Vitamin B-1] 100 mg PO BID-W/MEALS tab Continue Omeprazole 20 mg PO Q48H Metoprolol Tartrate [Lopressor] 25 mg PO TID Cholecalciferol (Vitamin D3) [Vitamin D3 (125 MCG = 5,000 IU)] 125 mcg PO Q48H Aspirin 81 mg PO DAILY 30 Days tab lisinopriL [Zestril] 20 mg PO HS 30 Days tab Acetaminophen Tab [Tylenol] 650 mg PO TID PRN PRN Reason: Fever And/ Or Pain fluPHENAZine decanoate [Prolixin Decanoate] 50 mg IM Q28D Discharge Medication List Omeprazole 20 mg PO Q48H 05/14/18 [History] Cholecalciferol (Vitamin D3) [Vitamin D3 (125 MCG = 5,000 IU)] 125 mcg PO Q48H 01/04/21 [History] Aspirin 81 mg PO DAILY 30 Days tab 01/29/21 [Rx] lisinopriL [Zestril] 20 mg PO HS 30 Days tab 01/29/21 [Rx] Acetaminophen Tab [Tylenol] 650 mg PO TID PRN 05/07/21 [History] Metoprolol Tartrate [Lopressor] 25 mg PO TID 08/20/21 [History] fluPHENAZine decanoate [Prolixin Decanoate] 50 mg IM Q28D 08/20/21 [History] Thiamine [Vitamin B-1] 100 mg PO BID-W/MEALS tab 08/21/21 [Rx] Follow up Appointment(s)/Referral(s): Bert Carrillo MD [Primary Care Provider] - 1-2 days Activity/Diet/Wound Care/Special Instructions: Activity: As tolerated. Take breaks as needed. Diet: Heart healthy and carb consistent diet. Avoid salts, or foods with hidden salts such as canned or boxed foods and frozen dinners. Extra salt makes your heart work harder and traps the fluid in your body for longer. Special Instructions: Take all of your medications as directed and remember to keep all of your doctor's appointments and follow-up as needed. Strongly encourage cessation of all alcohol use. Thank you for allowing us to participate in your care, it was truly a pleasure having you for our patient!!! Discharge Disposition: HOME SELF-CARE
[2021-08-21 15:50] VITALS: RESP 18
[2021-08-21 16:50] VITALS: BP 143/93; PULSE 115
[2021-08-21] MEDS ORDERED: lisinopriL 20 MG TAB PO SCH (21:00)
[2021-08-22] MEDS ORDERED: PANTOPRAZOLE 40 MG TABLET PO SCH (07:30)
== END 2021-08-21 16:25 | disposition home or self-care (01) ==
LOC: EC 20:47 → 6NMEDSUR 23:33
PROVIDERS: ADMIT Surgery; ATTEND Surgery
DX: S02.2XXA Fracture of nasal bones, initial encounter for closed fracture (principal); F10.229 Alcohol dependence with intoxication, unspecified; F10.239 Alcohol dependence with withdrawal, unspecified; Y90.8 Blood alcohol level of 240 mg/100 ml or more; J32.0 Chronic maxillary sinusitis; K76.0 Fatty (change of) liver, not elsewhere classified; K80.20 Calculus of gallbladder without cholecystitis without obstruction; I10 Essential (primary) hypertension; E87.1 Hypo-osmolality and hyponatremia; K21.9 Gastro-esophageal reflux disease without esophagitis; K57.90 Diverticulosis of intestine, part unspecified, without perforation or abscess without bleeding; F20.9 Schizophrenia, unspecified; F32.A Depression, unspecified; F41.9 Anxiety disorder, unspecified; I83.90 Asymptomatic varicose veins of unspecified lower extremity; Z79.899 Other long term (current) drug therapy; Z79.82 Long term (current) use of aspirin; Y93.02 Activity, running; W00.0XXA Fall on same level due to ice and snow, initial encounter; Z87.19 Personal history of other diseases of the digestive system; Z82.49 Family history of ischemic heart disease and other diseases of the circulatory system
CPT/HCPCS: 99285; 96376; 96361; 96375 ×2; 96365; 36415; 80053; 85025; 72125; 70486; 70450; 74177; G0378; G0480; J2060 ×2; J0690; Q9967; 80320

== ENCOUNTER 2021-10-19 16:26 | Emergency (ER) | payer MEDICARE, OTHER ==
[2021-10-19 16:34] VITALS: BP 165/112; PULSE 87; RESP 16; TEMP 97.8
--- NOTE | 2021-10-19 17:14 | ED ---
General Adult HPI - General Chief complaint: Recheck/Abnormal Lab/Rx Stated complaint: Detox, withdrawl Time Seen by Provider: 10/19/21 16:58 Source: patient, RN notes reviewed, old records reviewed Mode of arrival: ambulatory Limitations: no limitations - History of Present Illness Initial comments: 55-year-old male presenting for medication refill. Patient requesting Ativan prescription for alcohol withdrawal. He states that he was following up with his nurse from [facility] and there was an attempt to contact the psychiatrist for this medication. The patient last drank yesterday. He is not suicidal or homicidal. He came under his own will. He states that he is previously been in rehab. I did discuss the possibility of resources for rehabilitation and patient states that he does have all the resources. He is simply requesting a medication to help with withdrawal symptoms. - Related Data Home Medications Medication Instructions Recorded Confirmed Omeprazole 20 mg PO Q48H 05/14/18 08/20/21 Cholecalciferol (Vitamin D3) 125 mcg PO Q48H 01/04/21 08/20/21 [Vitamin D3 (125 MCG = 5,000 IU)] Acetaminophen Tab [Tylenol] 650 mg PO TID PRN 05/07/21 08/20/21 Metoprolol Tartrate [Lopressor] 25 mg PO TID 08/20/21 08/20/21 fluPHENAZine decanoate [Prolixin 50 mg IM Q28D 08/20/21 08/20/21 Decanoate] Previous Rx's Medication Instructions Recorded Aspirin 81 mg PO DAILY 30 Days tab 01/29/21 lisinopriL [Zestril] 20 mg PO HS 30 Days tab 01/29/21 Cephalexin [Keflex] 500 mg PO QID 6 Days #24 cap 08/21/21 Thiamine [Vitamin B-1] 100 mg PO BID-W/MEALS tab 08/21/21 diazePAM [Valium] 5 mg PO Q8H PRN 3 Days #9 tab 10/19/21 Allergies Allergy/AdvReac Type Severity Reaction Status Date / Time No Known Allergies Allergy Verified 10/19/21 16:34 Review of Systems ROS Statement: Those systems with pertinent positive or pertinent negative responses have been documented in the HPI. ROS Other: All systems not noted in ROS Statement are negative. Past Medical History Past Medical History: GERD/Reflux, Hypertension, Vascular Disorder Additional Past Medical History / Comment(s): ETOH abuse, alcohol withdrawl with tremens, diverticular disease, benign colon polyp, varicose veins. History of Any Multi-Drug Resistant Organisms: None Reported Past Surgical History: No Surgical Hx Reported Additional Past Surgical History / Comment(s): Teeth extractions, colonoscopies. Past Anesthesia/Blood Transfusion Reactions: No Reported Reaction Additional Past Anesthesia/Blood Transfusion Reaction / Comment(s): Never had Past Psychological History: Anxiety, Depression, Schizophrenia Smoking Status: Never smoker Past Alcohol Use History: Heavy Past Drug Use History: None Reported - Past Family History Father Family Medical History: Myocardial Infarction ([place]) Additional Family Medical History / Comment(s): AT AGE 58 FROM [place] Mother Family Medical History: Deep Vein Thrombosis (DVT), Hypertension Additional Family Medical History / Comment(s): PRIMARY PULMONARY HYPERTENSION General Exam Limitations: no limitations General appearance: alert, in no apparent distress Head exam: Present: atraumatic, normocephalic Eye exam: Present: normal appearance, PERRL Neck exam: Present: normal inspection. Absent: tenderness, meningismus Respiratory exam: Present: normal lung sounds bilaterally. Absent: respiratory distress, wheezes Cardiovascular Exam: Present: regular rate, normal rhythm GI/Abdominal exam: Present: soft. Absent: distended, tenderness, guarding Extremities exam: Present: normal inspection, normal capillary refill. Absent: pedal edema Neurological exam: Present: alert, oriented X3, CN II-XII intact. Absent: motor sensory deficit Psychiatric exam: Absent: homicidal ideation, suicidal ideation Skin exam: Present: warm, dry, intact. Absent: cyanosis, diaphoretic Course Vital Signs 10/19/21 16:31 Temperature 97.8 F Pulse Rate 87 Respiratory 16 Rate Blood Pressure 165/112 O2 Sat by Pulse 98 Oximetry Medical Decision Making - Medical Decision Making 55-year-old male requesting Ativan for alcohol withdrawal. He is not currently withdrawing although he is mildly hypertensive. He is not tachycardic. He has no significant tremor. He is alert and oriented. He states he has good outpatient follow-up. He has all the resources necessary and has previously been in rehabilitation. PT is provided resources for alcohol abuse in the emergency department. Disposition Clinical Impression: Alcohol abuse Disposition: HOME SELF-CARE Condition: Fair Instructions (If sedation given, give patient instructions): Abuse of Alcohol (ED) Additional Instructions: Please follow up with community mental health, please return with any worsening or changing symptoms. Prescriptions: diazePAM [Valium] 5 mg PO Q8H PRN 3 Days #9 tab PRN Reason: Alcohol Withdrawal Is patient prescribed a controlled substance at d/c from ED?: No Referrals: [facility] [Primary Care Provider] - 1-2 days Time of Disposition: 17:11
== END 2021-10-19 17:31 | disposition home or self-care (01) ==
LOC: EC 16:26
DX: F10.139 Alcohol abuse with withdrawal, unspecified (principal); I10 Essential (primary) hypertension; K21.9 Gastro-esophageal reflux disease without esophagitis; F32.A Depression, unspecified; F41.9 Anxiety disorder, unspecified; F20.9 Schizophrenia, unspecified; Z79.82 Long term (current) use of aspirin; Z79.899 Other long term (current) drug therapy; Y90.9 Presence of alcohol in blood, level not specified
CPT/HCPCS: 99282

== ENCOUNTER 2021-12-21 12:11 | Emergency (ER) | payer MEDICARE, OTHER ==
[2021-12-21 12:43] VITALS: RESP 18
--- NOTE | 2021-12-21 13:10 | ED ---
General Adult HPI - General Chief complaint: Nausea/Vomiting/Diarrhea Stated complaint: Fever,ABD Pain,Vomiting Time Seen by Provider: 12/21/21 12:48 Source: patient Mode of arrival: ambulatory - History of Present Illness Initial comments: Dictation was produced using [employer] dictation software. please excuse any grammatical, word or spelling errors. Chief Complaint: 56-year-old male presents emergency department for nausea vomiting abdominal pain History of Present Illness: 56-year-old male presents to the emergency department for approximately one week of nausea vomiting abdominal pain. Patient states that he has pain to the periumbilical area that's like a burning sensation. Nonradiating. Patient has had some bouts of nausea and vomiting. No diarrhea. Patient a normal bowel movement 2 days ago. Denies any fever or constitutional symptoms. Patient denies any history of abdominal surgery. The ROS documented in this emergency department record has been reviewed and confirmed by me. Those systems with pertinent positive or negative responses have been documented in the HPI. All other systems are other negative and/or noncontributory. PHYSICAL EXAM: General Impression: Alert and oriented x3, not in acute distress HEENT: Normocephalic atraumatic, extra-ocular movements intact, pupils equal and reactive to light bilaterally, mucous membranes moist. Cardiovascular: Heart regular rate and rhythm Chest: Able to complete full sentences, no retractions, no tachypnea Abdomen: abdomen soft, mild palpatory tenderness to the periumbilical area, non- distended, no organomegaly. No pain in McBurney's point, negative Acuna's sign Musculoskeletal: Pulses present and equal in all extremities, no peripheral edema Motor: no focal deficits noted Neurological: CN II-XII grossly intact, no focal motor or sensory deficits noted Skin: Intact with no visualized rashes Psych: Normal affect and mood ED course: 56-year-old male presents emergency Department with abdominal pain, nausea and vomiting. Vital signs upon arrival are within acceptable limits. Laboratory evaluation obtained per it CBC unremarkable. Metabolic panel within acceptable limits. Bilirubin is elevated at 2.2. Rest of abdominal labs are negative. Abdominal x-ray shows no acute processes. Patient given IV Zofran. Reevaluated at bedside at 2:40 PM on been stable medical condition. Patient is well-appearing. EKG interpretation: Ventricular rate 86, sinus rhythm,. Interval 153, appears 97, QTc 401. No AL prolongation, no QTC prolongation, no ST or T-wave changes noted. EKG compared to 11/18/2019 showing no changes. Overall, this EKG is unremarkable - Related Data Home Medications Medication Instructions Recorded Confirmed Omeprazole 20 mg PO Q48H 05/14/18 08/20/21 Cholecalciferol (Vitamin D3) 125 mcg PO Q48H 01/04/21 08/20/21 [Vitamin D3 (125 MCG = 5,000 IU)] Acetaminophen Tab [Tylenol] 650 mg PO TID PRN 05/07/21 08/20/21 Metoprolol Tartrate [Lopressor] 25 mg PO TID 08/20/21 08/20/21 fluPHENAZine decanoate [Prolixin 50 mg IM Q28D 08/20/21 08/20/21 Decanoate] Previous Rx's Medication Instructions Recorded Aspirin 81 mg PO DAILY 30 Days tab 01/29/21 lisinopriL [Zestril] 20 mg PO HS 30 Days tab 01/29/21 Cephalexin [Keflex] 500 mg PO QID 6 Days #24 cap 08/21/21 Thiamine [Vitamin B-1] 100 mg PO BID-W/MEALS tab 08/21/21 diazePAM [Valium] 5 mg PO Q8H PRN 3 Days #9 tab 10/19/21 Allergies Allergy/AdvReac Type Severity Reaction Status Date / Time No Known Allergies Allergy Verified 12/21/21 12:43 Review of Systems ROS Statement: Those systems with pertinent positive or pertinent negative responses have been documented in the HPI. ROS Other: All systems not noted in ROS Statement are negative. Past Medical History Past Medical History: GERD/Reflux, Hypertension, Vascular Disorder Additional Past Medical History / Comment(s): ETOH abuse, alcohol withdrawl with tremens, diverticular disease, benign colon polyp, varicose veins. History of Any Multi-Drug Resistant Organisms: None Reported Past Surgical History: No Surgical Hx Reported Additional Past Surgical History / Comment(s): Teeth extractions, colonoscopies. Past Anesthesia/Blood Transfusion Reactions: No Reported Reaction Additional Past Anesthesia/Blood Transfusion Reaction / Comment(s): Never had Past Psychological History: Anxiety, Depression, Schizophrenia Smoking Status: Never smoker Past Alcohol Use History: Heavy Past Drug Use History: None Reported - Past Family History Father Family Medical History: Myocardial Infarction ([place]) Additional Family Medical History / Comment(s): AT AGE 58 FROM [place] Mother Family Medical History: Deep Vein Thrombosis (DVT), Hypertension Additional Family Medical History / Comment(s): PRIMARY PULMONARY HYPERTENSION Course Vital Signs 12/21/21 12:40 Temperature 98.7 F Pulse Rate 99 Respiratory 18 Rate Blood Pressure 163/96 O2 Sat by Pulse 95 Oximetry Medical Decision Making - Lab Data Result diagrams: 12/21/21 14:03 12/21/21 14:03 Lab Results 12/21/21 12/21/21 Range/Units 14:03 14:03 WBC 9.5 (3.8-10.6) k/uL RBC 4.47 (4.30-5.90) m/uL Hgb 14.7 (13.0-17.5) gm/dL Hct 41.6 (39.0-53.0) % MCV 93.3 (80.0-100.0) fL MCH 33.0 (25.0-35.0) pg MCHC 35.3 (31.0-37.0) g/dL RDW 13.1 (11.5-15.5) % Plt Count 228 (150-450) k/uL MPV 7.3 Neutrophils % 79 % Lymphocytes % 10 % Monocytes % 7 % Eosinophils % 1 % Basophils % 1 % Neutrophils # 7.5 (1.3-7.7) k/uL Lymphocytes # 0.9 L (1.0-4.8) k/uL Monocytes # 0.7 (0-1.0) k/uL Eosinophils # 0.1 (0-0.7) k/uL Basophils # 0.1 (0-0.2) k/uL Sodium 134 L (137-145) mmol/L Potassium 4.1 (3.5-5.1) mmol/L Chloride 97 L (98-107) mmol/L Carbon Dioxide 24 (22-30) mmol/L Anion Gap 13 mmol/L BUN 6 L (9-20) mg/dL Creatinine 0.61 L (0.66-1.25) mg/dL Est GFR (CKD-EPI)AfAm >90 (>60 ml/min/1.73 sqM) Est GFR (CKD-EPI)NonAf >90 (>60 ml/min/1.73 sqM) Glucose 94 (74-99) mg/dL Calcium 9.6 (8.4-10.2) mg/dL Total Bilirubin 2.2 H (0.2-1.3) mg/dL AST 53 (17-59) U/L ALT 39 (4-49) U/L Alkaline Phosphatase 60 (38-126) U/L Total Protein 7.6 (6.3-8.2) g/dL Albumin 4.8 (3.5-5.0) g/dL Lipase 101 (23-300) U/L Disposition Clinical Impression: Nausea & vomiting Disposition: HOME SELF-CARE Condition: Fair Instructions (If sedation given, give patient instructions): Acute Nausea and Vomiting (ED) Is patient prescribed a controlled substance at d/c from ED?: No Referrals: [facility] [Primary Care Provider] - 1-2 days Time of Disposition: 14:45
[2021-12-21] MEDS ORDERED: ONDANSETRON 4 MG/2 ML VIAL IVP STA (13:41)
--- NOTE | 2021-12-21 14:14 | XR ---
EXAMINATION TYPE: XR abdomen acute w cxr DATE OF EXAM: 12/21/2021 CLINICAL HISTORY: Nausea and vomiting. TECHNIQUE: Single frontal view of chest is obtained. Supine and upright views of the abdomen are acq uired. COMPARISON: CT abdomen and pelvis August 20, 2021. Chest x-ray November 20, 2019 FINDINGS: The lungs remain grossly clear without pleural effusion or pneumothorax. Improved inspirat ion current study. Cardiac silhouette size appears stable and within normal limits. Bridging osteoph ytes in the mid to lower thoracic spine redemonstrated. Air-fluid level in nondistended stomach. Gas is noted in nondistended small bowel loops. Gas and fec al material is seen in nondistended colon and rectum. No pneumoperitoneum, visceromegaly, or suspic ious calcification is identified. The osseous structures are intact. IMPRESSION: 1. No acute pulmonary process. 2. Overall nonobstructive bowel gas pattern.
[2021-12-21 14:22] LABS: Basophils # (A) 0.1 k/uL (0-0.2); Basophils % (A) 1 %; Eosinophils # (A) 0.1 k/uL (0-0.7); Eosinophils % (A) 1 %; HCT 41.6 % (39.0-53.0); HGB 14.7 gm/dL (13.0-17.5); Lymphocytes # (A) 0.9 k/uL (1.0-4.8); Lymphocytes % (A) 10 %; MCHC 35.3 g/dL (31.0-37.0); MCV 93.3 fL (80.0-100.0); Mean Platelet Volume 7.3; Monocytes # (A) 0.7 k/uL (0-1.0); Monocytes % (A) 7 %; Neutrophils # (A) 7.5 k/uL (1.3-7.7); Neutrophils % (A) 79 %; Platelet Count 228 k/uL (150-450); RBC 4.47 m/uL (4.30-5.90); RDW 13.1 % (11.5-15.5); WBC 9.5 k/uL (3.8-10.6)
[2021-12-21 14:35] LABS: ALT 39 U/L (4-49); African American GFR (CKD) >90 (>60 ml/min/1.73 sqM); Albumin 4.8 g/dL (3.5-5.0); Anion Gap 13 mmol/L; Blood Urea Nitrogen 6 mg/dL (9-20); Calcium 9.6 mg/dL (8.4-10.2); Carbon Dioxide 24 mmol/L (22-30); Chloride 97 mmol/L (98-107); Glucose 94 mg/dL (74-99); Lipase 101 U/L (23-300); Non-African American GFR(CKD) >90 (>60 ml/min/1.73 sqM); Sodium 134 mmol/L (137-145); Total Bilirubin 2.2 mg/dL (0.2-1.3); Total Protein 7.6 g/dL (6.3-8.2)
[2021-12-21 14:38] LABS: AST 53 U/L (17-59); Alkaline Phosphatase 60 U/L (38-126); Potassium 4.1 mmol/L (3.5-5.1)
[2021-12-21] MEDS ORDERED: ONDANSETRON 4 MG ODT STARTER PACK 2 TAB BTL PO STA (14:45)
[2021-12-21 15:16] VITALS: BP 150/89; PULSE 90; TEMP 98.3
== END 2021-12-21 15:16 | disposition home or self-care (01) ==
LOC: EC 12:11
DX: R11.2 Nausea with vomiting, unspecified (principal); K21.9 Gastro-esophageal reflux disease without esophagitis; I10 Essential (primary) hypertension; Z82.49 Family history of ischemic heart disease and other diseases of the circulatory system; Z79.83 Long term (current) use of bisphosphonates
CPT/HCPCS: 36415; 93005; 80053; 83690; 85025; 74022; 99284; 96374; J2405; S0119

== ENCOUNTER 2022-02-07 15:10 | Inpatient (IN) | payer MEDICARE, OTHER ==
--- NOTE | 2022-02-07 16:11 | ED ---
Psych HPI - General Source: police Mode of arrival: ambulatory - History of Present Illness MD Complaint: other -: unknown Associated Psychiatric Symptoms: racing thoughts Quality: constant Improves With: none Worsens With: none Context: recent alcohol abuse, not taking psychiatric medications <Everton Castelan - Last Filed: 02/07/22 16:07> <Seng Boothe - Last Filed: 02/08/22 02:29> - General Chief Complaint: Psychiatric Symptoms Stated Complaint: Petition Time Seen by Provider: 02/07/22 15:34 - History of Present Illness Initial Comments: This patient is a 56-year-old man with psychiatric illness who is here to have ordered ordered evaluation. The patient reportedly noncompliant with his treatment plan. While here to the patient, he denies suicidal and homicidal ideation. He is expressing paranoid content (Everton Castelan) - Related Data Home Medications Medication Instructions Recorded Confirmed Omeprazole 20 mg PO Q48H 05/14/18 08/20/21 Cholecalciferol (Vitamin D3) 125 mcg PO Q48H 01/04/21 08/20/21 [Vitamin D3 (125 MCG = 5,000 IU)] Acetaminophen Tab [Tylenol] 650 mg PO TID PRN 05/07/21 08/20/21 Metoprolol Tartrate [Lopressor] 25 mg PO TID 08/20/21 08/20/21 fluPHENAZine decanoate [Prolixin 50 mg IM Q28D 08/20/21 08/20/21 Decanoate] Previous Rx's Medication Instructions Recorded Aspirin 81 mg PO DAILY 30 Days tab 01/29/21 lisinopriL [Zestril] 20 mg PO HS 30 Days tab 01/29/21 Cephalexin [Keflex] 500 mg PO QID 6 Days #24 cap 08/21/21 Thiamine [Vitamin B-1] 100 mg PO BID-W/MEALS tab 08/21/21 diazePAM [Valium] 5 mg PO Q8H PRN 3 Days #9 tab 10/19/21 Allergies Allergy/AdvReac Type Severity Reaction Status Date / Time No Known Allergies Allergy Verified 12/21/21 12:43 Review of Systems ROS Other: All systems not noted in ROS Statement are negative. Constitutional: Denies: fever Respiratory: Denies: cough, dyspnea Cardiovascular: Denies: chest pain, palpitations Gastrointestinal: Denies: abdominal pain, vomiting Musculoskeletal: Denies: back pain Skin: Denies: rash Neurological: Denies: headache Psychiatric: Denies: homicidal thoughts, suicidal thoughts <Everton Castelan - Last Filed: 02/07/22 16:07> ROS Other: All systems not noted in ROS Statement are negative. <Seng Boothe - Last Filed: 02/08/22 02:29> ROS Statement: Those systems with pertinent positive or pertinent negative responses have been documented in the HPI. Past Medical History Past Medical History: GERD/Reflux, Hypertension, Vascular Disorder Additional Past Medical History / Comment(s): ETOH abuse, alcohol withdrawl with tremens, diverticular disease, benign colon polyp, varicose veins. History of Any Multi-Drug Resistant Organisms: None Reported Past Surgical History: No Surgical Hx Reported Additional Past Surgical History / Comment(s): Teeth extractions, colonoscopies. Past Anesthesia/Blood Transfusion Reactions: No Reported Reaction Additional Past Anesthesia/Blood Transfusion Reaction / Comment(s): Never had Past Psychological History: Anxiety, Depression, Schizophrenia Smoking Status: Never smoker Past Alcohol Use History: Heavy Past Drug Use History: None Reported - Past Family History Father Family Medical History: Myocardial Infarction ([place]) Additional Family Medical History / Comment(s): AT AGE 58 FROM [place] Mother Family Medical History: Deep Vein Thrombosis (DVT), Hypertension Additional Family Medical History / Comment(s): PRIMARY PULMONARY HYPERTENSION <Everton Castelan - Last Filed: 02/07/22 16:07> General Exam Limitations: no limitations General appearance: alert, in no apparent distress Head exam: Present: atraumatic, normocephalic Eye exam: Present: normal appearance. Absent: scleral icterus, conjunctival injection Neck exam: Present: normal inspection Respiratory exam: Present: normal lung sounds bilaterally. Absent: respiratory distress, wheezes, rales, rhonchi, stridor Cardiovascular Exam: Present: regular rate, normal rhythm, normal heart sounds. Absent: systolic murmur, diastolic murmur, rubs, gallop GI/Abdominal exam: Present: soft. Absent: distended, tenderness, guarding, rebound, rigid, mass Extremities exam: Present: normal inspection, normal capillary refill. Absent: pedal edema, calf tenderness Back exam: Present: normal inspection. Absent: CVA tenderness (R), CVA tenderness (L) Neurological exam: Present: alert Psychiatric exam: Present: flat affect, other (Patient expresses appears to be some paranoid delusional thought content. Disorganized thought processes). Absent: homicidal ideation Skin exam: Present: warm, dry, intact, normal color. Absent: rash <Everton Castelan - Last Filed: 02/07/22 16:07> Course Vital Signs 02/07/22 02/07/22 15:14 21:05 Temperature 98.2 F 98.6 F Pulse Rate 120 H 115 H Respiratory 20 16 Rate Blood Pressure 168/111 168/110 O2 Sat by Pulse 97 95 Oximetry Medical Decision Making - Lab Data Result diagrams: 02/07/22 22:36 02/07/22 22:36 <Seng Boothe - Last Filed: 02/08/22 02:29> - Medical Decision Making Patient consented to me by previous shift physician, Dr. Colunga. Briefly, patient is a 56-year-old male presents emergency department for psychosis. Patient was initially to be transferred to psychiatric facility however patient was positive for COVID-19. EPS recommends that patient be admitted medically with psychiatry on consult. (Seng Boothe) - Lab Data Lab Results 02/07/22 02/07/22 02/07/22 Range/Units 22:33 22:36 22:36 WBC 6.9 (3.8-10.6) k/uL RBC 4.63 (4.30-5.90) m/uL Hgb 15.4 (13.0-17.5) gm/dL Hct 41.2 (39.0-53.0) % MCV 89.0 (80.0-100.0) fL MCH 33.2 (25.0-35.0) pg MCHC 37.4 H (31.0-37.0) g/dL RDW 12.7 (11.5-15.5) % Plt Count 206 (150-450) k/uL MPV 8.5 Neutrophils % 69 % Lymphocytes % 16 % Monocytes % 9 % Eosinophils % 1 % Basophils % 1 % Neutrophils # 4.7 (1.3-7.7) k/uL Lymphocytes # 1.1 (1.0-4.8) k/uL Monocytes # 0.6 (0-1.0) k/uL Eosinophils # 0.1 (0-0.7) k/uL Basophils # 0.1 (0-0.2) k/uL Hyperchromasia Moderate Sodium 132 L (137-145) mmol/L Potassium 3.4 L (3.5-5.1) mmol/L Chloride 92 L (98-107) mmol/L Carbon Dioxide 21 L (22-30) mmol/L Anion Gap 19 mmol/L BUN 3 L (9-20) mg/dL Creatinine 0.49 L (0.66-1.25) mg/dL Est GFR (CKD-EPI)AfAm >90 (>60 ml/min/1.73 sqM) Est GFR (CKD-EPI)NonAf >90 (>60 ml/min/1.73 sqM) Glucose 76 (74-99) mg/dL Calcium 9.2 (8.4-10.2) mg/dL Total Bilirubin 1.1 (0.2-1.3) mg/dL AST 55 (17-59) U/L ALT 46 (4-49) U/L Alkaline Phosphatase 65 (38-126) U/L Total Protein 7.0 (6.3-8.2) g/dL Albumin 4.6 (3.5-5.0) g/dL Coronavirus (PCR) Detected A (Not Detectd) Disposition <Everton Castelan - Last Filed: 02/07/22 16:07> Decision Time: 02:29 <Seng Boothe - Last Filed: 02/08/22 02:29> Clinical Impression: COVID-19, Psychosis Disposition: ADMITTED IP TO THIS [facility] Condition: Fair Referrals: [facility] [Primary Care Provider] - 1-2 days
[2022-02-07] MEDS ORDERED: LORazepam 1 MG TAB PO STA (21:18)
[2022-02-07 23:43] LABS: ALT 46 U/L (4-49); AST 55 U/L (17-59); African American GFR (CKD) >90 (>60 ml/min/1.73 sqM); Albumin 4.6 g/dL (3.5-5.0); Alkaline Phosphatase 65 U/L (38-126); Anion Gap 19 mmol/L; Blood Urea Nitrogen 3 mg/dL (9-20); Calcium 9.2 mg/dL (8.4-10.2); Carbon Dioxide 21 mmol/L (22-30); Chloride 92 mmol/L (98-107); Glucose 76 mg/dL (74-99); Non-African American GFR(CKD) >90 (>60 ml/min/1.73 sqM); Potassium 3.4 mmol/L (3.5-5.1); Sodium 132 mmol/L (137-145); Total Bilirubin 1.1 mg/dL (0.2-1.3)
[2022-02-07 23:57] LABS: Basophils # (A) 0.1 k/uL (0-0.2); Basophils % (A) 1 %; Eosinophils # (A) 0.1 k/uL (0-0.7); Eosinophils % (A) 1 %; HCT 41.2 % (39.0-53.0); HGB 15.4 gm/dL (13.0-17.5); Hyperchromasia Moderate; Lymphocytes # (A) 1.1 k/uL (1.0-4.8); Lymphocytes % (A) 16 %; MCH 33.2 pg (25.0-35.0); MCHC 37.4 g/dL (31.0-37.0); Mean Platelet Volume 8.5; Monocytes # (A) 0.6 k/uL (0-1.0); Monocytes % (A) 9 %; Neutrophils # (A) 4.7 k/uL (1.3-7.7); Neutrophils % (A) 69 %; Platelet Count 206 k/uL (150-450); RBC 4.63 m/uL (4.30-5.90); RDW 12.7 % (11.5-15.5); WBC 6.9 k/uL (3.8-10.6)
[2022-02-08] MEDS ORDERED: NALOXONE 0.4 MG/ML 1 ML VIAL IV PRN (02:26)
--- NOTE | 2022-02-08 04:50 | P.HPIM ---
History of Present Illness H&P Date: 02/08/22 Chief Complaint: acute psychosis , 56 year old male with schizophrenia patient comes in due to non compliance with psych follow up and treatment , he was petitioned for evaluation , he does admit to hearing voices, telling him about an accident he had recently . denies suicidal or homicidal ideation. he tested positive for COVID , and will be admitted to the medical floor for monitoring he denies any fever, chills, nausea or vomting, denies any diarrhea, abd pain , chest pain or trouble breathing, denies any sore throat or cough or any URI symptoms Review of Systems Pertinent positives as noted in HPI. All other systems were reviewed and are negative Past Medical History Past Medical History: GERD/Reflux, Hypertension, Vascular Disorder Additional Past Medical History / Comment(s): ETOH abuse, alcohol withdrawl with tremens, diverticular disease, benign colon polyp, varicose veins. History of Any Multi-Drug Resistant Organisms: None Reported Past Surgical History: No Surgical Hx Reported Additional Past Surgical History / Comment(s): Teeth extractions, colonoscopies. Past Anesthesia/Blood Transfusion Reactions: No Reported Reaction Additional Past Anesthesia/Blood Transfusion Reaction / Comment(s): Never had Past Psychological History: Anxiety, Depression, Schizophrenia Smoking Status: Never smoker Past Alcohol Use History: Heavy Past Drug Use History: None Reported - Past Family History Father Family Medical History: Myocardial Infarction ([place]) Additional Family Medical History / Comment(s): AT AGE 58 FROM [place] Mother Family Medical History: Deep Vein Thrombosis (DVT), Hypertension Additional Family Medical History / Comment(s): PRIMARY PULMONARY HYPERTENSION Medications and Allergies Home Medications Medication Instructions Recorded Confirmed Type Omeprazole 20 mg PO Q48H 05/14/18 08/20/21 History Cholecalciferol (Vitamin D3) 125 mcg PO Q48H 01/04/21 08/20/21 History [Vitamin D3 (125 MCG = 5,000 IU)] Aspirin 81 mg PO DAILY 30 Days tab 01/29/21 08/20/21 Rx lisinopriL [Zestril] 20 mg PO HS 30 Days tab 01/29/21 08/20/21 Rx Acetaminophen Tab [Tylenol] 650 mg PO TID PRN 05/07/21 08/20/21 History Metoprolol Tartrate [Lopressor] 25 mg PO TID 08/20/21 08/20/21 History fluPHENAZine decanoate [Prolixin 50 mg IM Q28D 08/20/21 08/20/21 History Decanoate] Cephalexin [Keflex] 500 mg PO QID 6 Days #24 cap 08/21/21 Rx Thiamine [Vitamin B-1] 100 mg PO BID-W/MEALS tab 08/21/21 Rx diazePAM [Valium] 5 mg PO Q8H PRN 3 Days #9 tab 10/19/21 Rx Allergies Allergy/AdvReac Type Severity Reaction Status Date / Time No Known Allergies Allergy Verified 12/21/21 12:43 Physical Exam Vitals: Vital Signs Temp Pulse Resp BP Pulse Ox 02/07/22 21:05 98.6 F 115 H 16 168/110 95 02/07/22 15:14 98.2 F 120 H 20 168/111 97 Intake and Output 02/07/22 02/07/22 02/08/22 14:59 22:59 06:59 Other: Weight 86.183 kg Constitutional: No acute distress, Eyes: Anicteric sclerae, moist conjunctiva, Pupils equal round reactive to light ENMT: NC/AT Oropharynx clear, no erythema, or exudates Neck: Supple, no masses, or JVD No carotid bruits No thyromegaly Lungs: Clear to auscultation Clear to percussion Normal respiratory effort, no accessory muscle use Cardiovascular: Heart regular in rate and rhythm, No murmurs, gallops, or rubs No peripheral edema Abdominal: Soft Nontender, no guarding, rebound or rigidity Abdomen moving with respiration Normoactive bowel sounds No hepatomegaly, No splenomegaly No palpable mass No abdominal wall hernia noted Skin: Normal temperature, tone, texture, turgor No induration No subcutaneous nodules No rash, lesions No ulcers Extremities: No digital cyanosis No clubbing Pedal pulses intact and symmetrical Radial pulses intact and symmetrical No calf tenderness Psychiatric: Alert and oriented to person, place Neuro Muscles Strength 5/5 in all 4 extremities Sensation to light touch grossly present throughout Cranial nerves II-XII grossly intact No focal sensory deficits Lymphatics: no palpable cervical or supraclavicular , or inguinal lymph nodes Results CBC & Chem 7: 02/07/22 22:36 02/07/22 22:36 Labs: Abnormal Lab Results - Last 24 Hours (Table) 1002/07/22 02/07/22 Range/Units 22:33 22:36 22:36 MCHC 37.4 H (31.0-37.0) g/dL Sodium 132 L (137-145) mmol/L Potassium 3.4 L (3.5-5.1) mmol/L Chloride 92 L (98-107) mmol/L Carbon Dioxide 21 L (22-30) mmol/L BUN 3 L (9-20) mg/dL Creatinine 0.49 L (0.66-1.25) mg/dL Coronavirus (PCR) Detected A (Not Detectd) Assessment and Plan Assessment: covid positive supportive care isolation droplet and contact precautions lovenox for DVT PPX sc monitor vital signs not requiring supplemental oxygen acute psychosis with auditory hallucinations management per psych full code DVT PPX lovenox sc
[2022-02-08] MEDS: ASPIRIN 81 MG PO SCH (08:28)
[2022-02-08] MEDS: ENOXAPARIN 40 MG/0.4 ML SYRINGE SQ SCH (08:28)
[2022-02-08] MEDS: METOPROLOL TARTRATE 25 MG TAB PO SCH ×3 (08:28→20:55)
[2022-02-08] MEDS: PANTOPRAZOLE 40 MG TABLET PO SCH (08:28)
[2022-02-08] MEDS ORDERED: MAG HYDROX/AL HYDROX/SIMETH 30 ML, HYOSCYAMINE ELIXIR 10 ML, LIDOCAINE VISCOUS 2% 10 ML PO ONE ×3 (10:00)
[2022-02-08] MEDS ORDERED: fluPHENAZine DECANOATE 25 MG/ML 5ML MDV IM ONE (14:23)
[2022-02-08] MEDS ORDERED: LORazepam 1 MG TAB PO PRN (14:30)
[2022-02-08] MEDS ORDERED: haloperidoL 5 MG TAB PO PRN (14:30)
[2022-02-08] MEDS ORDERED: LORazepam 2 MG/ML INJ IM PRN (14:30)
[2022-02-08] MEDS ORDERED: HALOPERIDOL LACTATE 5 MG/ML 1 ML VIAL IM PRN (14:30)
--- NOTE | 2022-02-08 14:34 | P.CN ---
Psychiatric Consult - . Consult date: 02/08/22 Consult:: 02/08/22 13:30 IDENTIFYING Data: Mr. Tin Askew is a 56-year-old single male who currently lives with his brother in a house, is on SSD, has psychiatric history of schizophrenia and etoh use. HISTORY OF PRESENT ILLNESS: The patient was long history of schizophrenia and alcohol use disorder who is on Prolixin D and currently being followed by [facility] Dr. Jacinto who is his psychiatrist. Patient apparently was brought in for psychiatric evaluation as he is currently on a active court order for mental health treatment. Patient was endorsing auditory hallucinations. Patient's nurse states that patient has been fairly calm however has been disorganized, delusional and not going to [facility] for his follow-up and also his injections. Patient tested positive for covid therefore he was not admitted to the psychiatric hospital. Patient was seen lying in the bed today in the ER and agreeable to speak to chart writer. Patient was fairly calm however was fairly talkative, rambles and was fairly illogical with loose associations. He spoke about a court order and also a "carjacking" and does not believe that he needs to take psychiatric medications. He claims that he last saw his psychiatrist in 1993. He was bizarre at times. He claims that his last shot was about 3 weeks ago. He claims that he is hearing voices telling him about a "carjacking". He claims that this is "commission impossible". He has very poor insight and judgment. He claims that his sleep has been fair. He is denying any suicidal or homicidal ideations intent or plan. He is denying any visual hallucinations. He denies any other recreational drug use except for alcohol as noted above. PAST PSYCHIATRIC HISTORY: Previous diagnoses: Schizophrenia and alcohol use disorder Patient has had several psychiatric admissions to the mental health unit in the past. Previous suicide attempts: Denies. Previous outpatient psychiatric treatment: Currently connected with [facility], follows up with Dr. Dr. Jacinto. Current psychiatric medications: Prolixin D 50 mg IM every 2 weeks and Cogentin twice daily. SUBSTANCE ABUSE HISTORY: As noted in HPI. Social History: Patient was born in [place] and raised up by his Parents. Housing: Currently lives by himself. The patient has no children. Work history: Currently unemployed on SSD. Education: Patient reports attaining an educational level of high school and some college. FAMILY HISTORY: Psychiatric Illness: Denies any family history of mental illness. Medical History: Hypertension MENTAL STATUS EVALUATION: Appearance: Appears stated age, groomed, average body built, and no specific features. Gait/ posture: Laying in bed, no abnormal movements, with relaxed posture. Attitude and Behavior: Not cooperative, poor eye contact during course of interview. Motor Activity: Decreased psychomotor activity. Speech: spontaneous, Slow rate, rhythm, and articulation. Low volume. Rambling at times. Mood: fine Affect: Flat. Thought content/process: Paranoid delusions, denies suicidal thoughts, denies homicidal thoughts, Denies intentions, or plans. Rambles, illogical. Loose associations. Perception: Admits to auditory hallucinations. Alertness: No impairment. Concentration: Impaired. Orientation: Alert and fully oriented Insight/judgment: Chronically poor Assessment: Schizophrenia non adherence to medication regimen Alcohol use disorder PLAN: -At this time patient DOES meet criteria for inpatient psychiatric admission however patient tested positive for covid-19 therefore he will remain on med floors and treated psychiatrically. -Would recommend the following medication changes/additions: Prolixin 5 mg twice a day for psychosis by mouth, this can be titrated over the next few days. Ordered Prolixin 50 mg IM to ensure compliance as patient is on mental health court order. prolixin shot was given [id number] in the past. Trazodone 100 mg daily at bedtime when necessary for insomnia. Haldol and Ativan when necessary for anxiety/agitation. -Continue 1:1 sitter for safety -She is currently on an active treatment order for mental health treatment. -Patient will need to be reconnected with [facility] upon discharge. -Communicated plan to patient's nurse -Will continue to follow along -Please contact with any questions.
[2022-02-08] MEDS: lisinopriL 20 MG TAB PO SCH (20:55)
[2022-02-08] MEDS: BENZTROPINE MESYLATE 0.5 MG TAB PO SCH (21:05)
[2022-02-08] MEDS: traZODone HCL 100 MG TAB PO PRN (21:08)
--- NOTE | 2022-02-09 09:23 | P.PN ---
Subjective Progress Note Date: 02/09/22 No new complaints. Resting comfortably in bed. Gen: Asleep, resting comfortably HEENT: normocephalic, atraumatic, good hearing acuity, moist mucous membranes Resp: good air exchange, breathing comfortably with no accessory muscle use CVS: good distal perfusion x 4, GI: soft, NTTP, ND : no SPT, no CVAT, hawkins catheter not present MSK: no pitting edema, no clubbing Neuro: non-focal, moving all extremities Psych: cooperative, euthymic mood Assessment/plan: covid positive supportive care isolation droplet and contact precautions lovenox for DVT PPX sc monitor vital signs not requiring supplemental oxygen acute psychosis with auditory hallucinations management per psych full code DVT PPX lovenox sc Objective - Vital Signs Vital signs: Vital Signs Temp 98.7 F 02/09/22 06:17 Pulse 77 02/09/22 06:17 Resp 17 02/09/22 06:17 BP 120/78 02/09/22 06:17 Pulse Ox 96 02/09/22 06:17 FiO2 Intake & Output 02/08/22 02/09/22 02/09/22 18:59 06:59 18:59 Intake Total 480 Balance 480 Weight 86.183 kg Intake: Oral 480 Other: # Voids 0 1 - Labs CBC & Chem 7: 02/07/22 22:36 02/07/22 22:36
[2022-02-09] MEDS: METOPROLOL TARTRATE 25 MG TAB PO SCH ×3 (10:22→21:04)
[2022-02-09] MEDS: ENOXAPARIN 40 MG/0.4 ML SYRINGE SQ SCH (10:22)
[2022-02-09] MEDS: BENZTROPINE MESYLATE 0.5 MG TAB PO SCH ×2 (10:22→21:04)
[2022-02-09] MEDS: ASPIRIN 81 MG PO SCH (10:22)
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
[2022-02-09] MEDS ORDERED: LORazepam 1 MG/0.5 ML VIAL IM PRN (14:15)
[2022-02-09] MEDS: lisinopriL 20 MG TAB PO SCH (21:04)
[2022-02-10] MEDS: ACETAMINOPHEN TAB 325 MG TAB PO PRN (08:35)
[2022-02-10] MEDS: ENOXAPARIN 40 MG/0.4 ML SYRINGE SQ SCH (08:36)
[2022-02-10] MEDS: ASPIRIN 81 MG PO SCH (08:36)
[2022-02-10] MEDS: METOPROLOL TARTRATE 25 MG TAB PO SCH ×3 (08:36→21:31)
[2022-02-10] MEDS: PANTOPRAZOLE 40 MG TABLET PO SCH (08:36)
[2022-02-10] MEDS: BENZTROPINE MESYLATE 0.5 MG TAB PO SCH ×2 (08:36→21:31)
--- NOTE | 2022-02-10 12:10 | P.PN ---
Subjective Progress Note Date: 02/10/22 Principal diagnosis: Assessment: Schizophrenia non adherence to medication regimen Alcohol use disorder Subjective data: The patient reports that he is feeling a lot better and that the voices are less intense He states that he would like to stay 1 more day before he leaves Patient gives vague excuses about his brother not having time as well as that the voices could get worse if he goes home today He denies any suicidal or homicidal ideations Patient also states that he is tired of getting the shots and plans to switch to oral medications and that it is his prerogative and his rights He denies any intention of harming herself or others Following is an excerpt from the assessment done by Dr. Nam the previous day Mr. Tin Askew is a 56-year-old single male who currently lives with his brother in a house, is on SSD, has psychiatric history of schizophrenia and etoh use. The patient was long history of schizophrenia and alcohol use disorder who is on Prolixin D and currently being followed by [facility] Dr. Jacinto who is his psychiatrist. Patient apparently was brought in for psychiatric evaluation as he is currently on a active court order for mental health treatment. Patient was endorsing auditory hallucinations. Patient's nurse states that patient has been fairly calm however has been disorganized, delusional and not going to [facility] for his follow-up and also his injections. Patient tested positive for covid therefore he was not admitted to the psychiatric hospital. Patient was seen laying in the bed today in the ER and agreeable to speak to residential mortgage underwriter. Patient was fairly calm however was fairly talkative, rambles and was fairly illogical with loose associations. He spoke about a court order and also a "carjacking" and does not believe that he needs to take psychiatric medications. He claims that he last saw his psychiatrist in 1993. He was bizarre at times. He claims that his last shot was about 3 weeks ago. He claims that he is hearing voices telling him about a "carjacking". He claims that this is "commission impossible". He has very poor insight and judgment. He claims that his sleep has been fair. He is denying any suicidal or homicidal ideations intent or plan. He is denying any visual hallucinations. He denies any other recreational drug use except for alcohol as noted above. MENTAL STATUS EVALUATION: Appearance: Appears stated age, groomed, average body built, and no specific features. Gait/ posture: Laying in bed, no abnormal movements, with relaxed posture. Attitude and Behavior: cooperative, good eye contact during course of interview. Motor Activity: Normal Speech: spontaneous, Slow rate, rhythm, and articulation. Low volume. Appropriate Mood: fine Affect: Flat. Thought content/process: Does not exhibit any paranoid ideations, denies suicidal thoughts, denies homicidal thoughts, Denies intentions, or plans. Thought processes are more goal directed sequential and logical Perception: Admits to auditory hallucinations. Alertness: No impairment. Concentration: Impaired. Orientation: Alert and fully oriented Insight/judgment: Chronically poor Assessment: Schizophrenia non adherence to medication regimen Alcohol use disorder PLAN: -At this time patient DOES not meet criteria for inpatient psychiatric admission Continue Prolixin 5 mg twice a day for psychosis by mouth, Patient was also Ordered Prolixin 50 mg IM to ensure compliance as patient is on mental health court order. prolixin shot was given [id number] in the past. Trazodone 100 mg daily at bedtime when necessary for insomnia. Haldol and Ativan when necessary for anxiety/agitation. -Continue 1:1 sitter for safety -he is currently on an active treatment order for mental health treatment. -Patient will need to be reconnected with [facility] upon discharge. -Communicated plan to patient's nurse -Please contact with any questions. Patient is currently at his baseline level of functioning although there is been some increase in the auditory hallucinations due to his noncompliance with medications but is improving Patient would be a likely candidate for discharge tomorrow Objective - Vital Signs Vital signs: Vital Signs Temp 97.3 F L 02/10/22 08:00 Pulse 83 02/10/22 08:00 Resp 17 02/10/22 08:00 BP 142/95 02/10/22 08:00 Pulse Ox 98 02/10/22 08:00 FiO2 Intake & Output 02/09/22 02/10/22 02/10/22 18:59 06:59 18:59 Intake Total 200 Balance 200 Intake: Oral 200 Other: Voiding Method Toilet # Voids 1 # Bowel Movements 0 - Labs CBC & Chem 7: 02/07/22 22:36 02/07/22 22:36
--- NOTE | 2022-02-10 13:40 | P.PN ---
Subjective Progress Note Date: 02/10/22 No new complaints. Resting comfortably in bed. Gen: Asleep, resting comfortably HEENT: normocephalic, atraumatic, good hearing acuity, moist mucous membranes Resp: good air exchange, breathing comfortably with no accessory muscle use CVS: good distal perfusion x 4, GI: soft, NTTP, ND : no SPT, no CVAT, hawkins catheter not present MSK: no pitting edema, no clubbing Neuro: non-focal, moving all extremities Psych: cooperative, euthymic mood Assessment/plan: covid positive supportive care isolation droplet and contact precautions lovenox for DVT PPX sc monitor vital signs not requiring supplemental oxygen acute psychosis with auditory hallucinations management per psych full code DVT PPX lovenox sc Objective - Vital Signs Vital signs: Vital Signs Temp 97.3 F L 02/10/22 08:00 Pulse 83 02/10/22 08:00 Resp 17 02/10/22 08:00 BP 142/95 02/10/22 08:00 Pulse Ox 98 02/10/22 08:00 FiO2 Intake & Output 02/09/22 02/10/22 02/10/22 18:59 06:59 18:59 Intake Total 200 Balance 200 Intake: Oral 200 Other: Voiding Method Toilet # Voids 1 # Bowel Movements 0 - Labs CBC & Chem 7: 02/07/22 22:36 02/07/22 22:36
[2022-02-10] MEDS: lisinopriL 20 MG TAB PO SCH (21:31)
[2022-02-11] MEDS: ENOXAPARIN 40 MG/0.4 ML SYRINGE SQ SCH ×2 (10:07→10:10)
[2022-02-11] MEDS: ASPIRIN 81 MG PO SCH (10:07)
[2022-02-11] MEDS: METOPROLOL TARTRATE 25 MG TAB PO SCH ×3 (10:07→20:04)
[2022-02-11] MEDS: BENZTROPINE MESYLATE 0.5 MG TAB PO SCH ×2 (10:08→20:04)
--- NOTE | 2022-02-11 11:55 | P.PN ---
Subjective Progress Note Date: 02/11/22 No new complaints. Resting comfortably in bed. Gen: Asleep, resting comfortably HEENT: normocephalic, atraumatic, good hearing acuity, moist mucous membranes Resp: good air exchange, breathing comfortably with no accessory muscle use CVS: good distal perfusion x 4, GI: soft, NTTP, ND : no SPT, no CVAT, hawkins catheter not present MSK: no pitting edema, no clubbing Neuro: non-focal, moving all extremities Psych: cooperative, euthymic mood Assessment/plan: covid positive supportive care isolation droplet and contact precautions lovenox for DVT PPX sc monitor vital signs not requiring supplemental oxygen acute psychosis with auditory hallucinations management per psych full code DVT PPX lovenox sc Objective - Vital Signs Vital signs: Vital Signs Temp 98.4 F 02/11/22 08:00 Pulse 83 02/11/22 08:00 Resp 17 02/11/22 08:00 BP 143/90 02/11/22 08:00 Pulse Ox 94 L 02/11/22 08:00 FiO2 Intake & Output 02/10/22 02/11/22 02/11/22 18:59 06:59 18:59 Intake Total 500 Balance 500 Intake: Oral 500 Other: Voiding Method Toilet Toilet Toilet # Voids 3 3 - Labs CBC & Chem 7: 02/07/22 22:36 02/07/22 22:36
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
[2022-02-11] MEDS: lisinopriL 20 MG TAB PO SCH (20:04)
[2022-02-11] MEDS: traZODone HCL 100 MG TAB PO PRN (20:37)
[2022-02-12] MEDS: METOPROLOL TARTRATE 25 MG TAB PO SCH ×3 (08:21→22:20)
[2022-02-12] MEDS: PANTOPRAZOLE 40 MG TABLET PO SCH (08:21)
[2022-02-12] MEDS: ASPIRIN 81 MG PO SCH (08:21)
[2022-02-12] MEDS: BENZTROPINE MESYLATE 0.5 MG TAB PO SCH ×2 (08:21→20:35)
[2022-02-12] MEDS: ENOXAPARIN 40 MG/0.4 ML SYRINGE SQ SCH (08:22)
--- NOTE | 2022-02-12 15:42 | P.PN ---
Subjective Progress Note Date: 02/12/22 56 year old male with PMH of schizophrenia presents due to non compliance with psych follow up and treatment. He was petitioned for evaluation. He does admit to hearing voices. Denies suicidal or homicidal ideation. He tested positive for COVID 19, and will be admitted to the medical floor for monitoring. Patient was seen and examined. No acute events overnight. Nurse reports no new complaints. Seen pacing around his room. Gen: no acute distress HEENT: normocephalic, atraumatic, good hearing acuity, moist mucous membranes Resp: good air exchange, breathing comfortably with no accessory muscle use CVS: good distal perfusion x 4, GI: soft, NTTP, ND : no SPT, no CVAT, hawkins catheter not present MSK: no pitting edema, no clubbing Neuro: non-focal, moving all extremities Psych: cooperative, euthymic mood Assessment/plan: COVID-19 Supportive care. Isolation droplet and contact precautions. Monitor vital signs Not requiring supplemental oxygen Hypochloremic hyponatremia Hypokalemia Metabolic acidosis Repeat BMP tomorrow morning. Hypertension Restart Lisinopril and Metoprolol. Monitor vitals, adjust medications if necessary. GERD Protonix acute psychosis with auditory hallucinations management per psych Lovenox for DVT prophylaxis. Patient will be FULL CODE. Objective - Vital Signs Vital signs: Vital Signs Temp 97.9 F 02/12/22 14:00 Pulse 100 02/12/22 14:00 Resp 18 02/12/22 14:00 BP 144/92 02/12/22 14:00 Pulse Ox 97 02/12/22 14:00 FiO2 Intake & Output 02/11/22 02/12/22 02/12/22 18:59 06:59 18:59 Other: Voiding Method Toilet Toilet Toilet # Voids 8 1 # Bowel Movements 1 - Labs CBC & Chem 7: 02/07/22 22:36 02/07/22 22:36
[2022-02-12] MEDS: traZODone HCL 100 MG TAB PO PRN (20:35)
[2022-02-12] MEDS: lisinopriL 20 MG TAB PO SCH (20:35)
[2022-02-13] MEDS: ENOXAPARIN 40 MG/0.4 ML SYRINGE SQ SCH (09:26)
[2022-02-13] MEDS: BENZTROPINE MESYLATE 0.5 MG TAB PO SCH ×2 (09:30→20:08)
[2022-02-13] MEDS: METOPROLOL TARTRATE 25 MG TAB PO SCH ×3 (09:30→22:31)
[2022-02-13] MEDS: ASPIRIN 81 MG PO SCH (09:30)
[2022-02-13 11:16] LABS: African American GFR (CKD) 117.4 (60.0-200.0); Anion Gap 9.6 mmol/L (10.00-18.00); BUN/Creat Ratio 14.13 Ratio (12.00-20.00); Blood Urea Nitrogen 11.3 mg/dL (9.0-27.0); Calcium 9.5 mg/dL (8.7-10.3); Carbon Dioxide 29.4 mmol/L (20.0-27.5); Non-African American GFR(CKD) 101.3 (60.0-200.0); Potassium 4.4 mmol/L (3.5-5.5)
--- NOTE | 2022-02-13 13:37 | P.CN ---
Psychiatric Consult - . Consult date: 02/13/22 Consult:: 02/13/22 13:37 Interval History: Patient was seen standing in his room and was directable and agreeable to speak with newspaper writer in his room. The patient continues to endorse overtly psychotic symptoms. He continues to be extremely paranoid regarding multiple judges that reside in the [place] area. He also reports homicidal ideation towards them. The patient denies any means or plan. He is currently denying any suicidal ideation, intention, and/or plan. He does admit to auditory hallucinations however refuses to elaborate further. He has been adherent with his medication and is not endorsing any significant side effects. The patient is in agreement to increasing his Prolixin today. Mental Status Exam: General Appearance: Patient appears to be stated age is alert, at times difficult to direct, but is overall cooperative. Behavior: Patient displace psychomotor agitation is constant pacing. Speech: Patient's speech is monotone however spontaneous and may be at times hyperverbal and less interrupted. Mood/Affect: Mood is described as "not good." Affect appears to be blunted in range. Guarded and suspicious Suicidality/Homicidality: Patient is denying any overt suicidal just. Patient is endorsing homicidal ideation with no intention or plan. Perceptions: Patient reports auditory hallucinations and denies any visual hallucinations Though content/process: The patient does endorse significant delusional thought content including paranoia and persecution. Thought process with loose associations and flight of ideas. Memory and concentration: AOX3, grossly intact for the purposes of this session Judgment and insight: Poor Vital Signs Temp 98.3 F 02/13/22 10:39 Pulse 80 02/13/22 10:39 Resp 16 02/13/22 10:39 BP 131/91 02/13/22 10:39 Pulse Ox 99 02/13/22 10:39 FiO2 Intake & Output 02/12/22 02/13/22 02/13/22 18:59 06:59 18:59 Other: Voiding Method Toilet Toilet Toilet # Voids 7 2 Laboratory Results - Last 24 Hours 02/13/22 07:35 Sodium 136 Potassium 4.4 Chloride 97 Carbon Dioxide 29.4 H Anion Gap 9.60 L BUN 11.3 Creatinine 0.8 Est GFR (CKD-EPI)AfAm 117.4 Est GFR (CKD-EPI)NonAf 101.3 BUN/Creatinine Ratio 14.13 Glucose 105 Calcium 9.5 Assessment Schizophrenia Alcohol use disorder Plan: -At this time patient DOES meet criteria for inpatient psychiatric admission. The patient currently presents with acute psychotic symptoms or placing him at risk of danger to self or others whether inadvertent or intentionally. -Would recommend the following medication changes/additions: We will increase Prolixin to 7.5 mg by mouth twice a day for psychosis Prolixin 50 mg IM was administered on 02/08/2022. -Continue 1:1 sitter for safety -Cannot leave AMA at this time. Patient will need a petition and certification if attempting to leave AMA. -Will continue to follow along -When medically stable, patient is eligible for transfer to a psych bed when available.
--- NOTE | 2022-02-13 14:33 | P.PN ---
Subjective Progress Note Date: 02/13/22 56 year old male with PMH of schizophrenia presents due to non compliance with psych follow up and treatment. He was petitioned for evaluation. He does admit to hearing voices. Denies suicidal or homicidal ideation. He tested positive for COVID 19, and will be admitted to the medical floor for monitoring. Patient was seen and examined. No acute events overnight. Nurse reports no new complaints. Seen pacing around his room. Gen: no acute distress HEENT: normocephalic, atraumatic, good hearing acuity, moist mucous membranes Resp: good air exchange, breathing comfortably with no accessory muscle use CVS: good distal perfusion x 4, GI: soft, NTTP, ND : no SPT, no CVAT, hawkins catheter not present MSK: no pitting edema, no clubbing Neuro: non-focal, moving all extremities Psych: cooperative, euthymic mood Assessment/plan: COVID-19 Supportive care. Isolation droplet and contact precautions. Monitor vital signs Not requiring supplemental oxygen Hypochloremic hyponatremia Hypokalemia Metabolic acidosis Repeat BMP tomorrow morning. Hypertension Restart Lisinopril and Metoprolol. Monitor vitals, adjust medications if necessary. GERD Protonix Acute psychosis with auditory hallucinations Management per psych Lovenox for DVT prophylaxis. Patient will be FULL CODE. Objective - Vital Signs Vital signs: Vital Signs Temp 98.3 F 02/13/22 10:39 Pulse 80 02/13/22 10:39 Resp 16 02/13/22 10:39 BP 131/91 02/13/22 10:39 Pulse Ox 99 02/13/22 10:39 FiO2 Intake & Output 02/12/22 02/13/22 02/13/22 18:59 06:59 18:59 Other: Voiding Method Toilet Toilet Toilet # Voids 7 2 - Labs CBC & Chem 7: 02/07/22 22:36 02/13/22 07:35 Labs: Abnormal Lab Results - Last 24 Hours (Table) 02/13/22 Range/Units 07:35 Carbon Dioxide 29.4 H (20.0-27.5) mmol/L Anion Gap 9.60 L (10.00-18.00) mmol/L
[2022-02-13] MEDS: ACETAMINOPHEN TAB 325 MG TAB PO PRN (16:44)
[2022-02-13] MEDS: traZODone HCL 100 MG TAB PO PRN (20:08)
[2022-02-13] MEDS: lisinopriL 20 MG TAB PO SCH (20:08)
[2022-02-14] MEDS: ENOXAPARIN 40 MG/0.4 ML SYRINGE SQ SCH (07:40)
[2022-02-14] MEDS: BENZTROPINE MESYLATE 0.5 MG TAB PO SCH ×2 (07:41→21:55)
[2022-02-14] MEDS: PANTOPRAZOLE 40 MG TABLET PO SCH (07:41)
[2022-02-14] MEDS: METOPROLOL TARTRATE 25 MG TAB PO SCH ×3 (07:41→21:54)
[2022-02-14] MEDS: ASPIRIN 81 MG PO SCH (07:41)
--- NOTE | 2022-02-14 11:16 | P.PN ---
Subjective Progress Note Date: 02/14/22 56 year old male with PMH of schizophrenia presents due to non compliance with psych follow up and treatment. He was petitioned for evaluation. He does admit to hearing voices. Denies suicidal or homicidal ideation. He tested positive for COVID 19, and will be admitted to the medical floor for monitoring. Patient was seen and examined. No acute events overnight. Nurse reports no new complaints. Seen pacing around his room. Gen: no acute distress HEENT: normocephalic, atraumatic, good hearing acuity, moist mucous membranes Resp: good air exchange, breathing comfortably with no accessory muscle use CVS: good distal perfusion x 4, GI: soft, NTTP, ND : no SPT, no CVAT, hawkins catheter not present MSK: no pitting edema, no clubbing Neuro: non-focal, moving all extremities Psych: cooperative, euthymic mood Assessment/plan: COVID-19 Supportive care. Isolation droplet and contact precautions. Monitor vital signs Not requiring supplemental oxygen Metabolic acidosis Resolved: Hypochloremic hyponatremia, Hypokalemia Repeat BMP tomorrow morning. Hypertension Restart Lisinopril and Metoprolol. Monitor vitals, adjust medications if necessary. GERD Protonix Acute psychosis with auditory hallucinations Management per psych Lovenox for DVT prophylaxis. Patient will be FULL CODE. Objective - Vital Signs Vital signs: Vital Signs Temp 97.6 F 02/14/22 08:00 Pulse 65 02/14/22 08:00 Resp 17 02/14/22 08:00 BP 127/85 02/14/22 08:00 Pulse Ox 98 02/14/22 08:00 FiO2 Intake & Output 02/13/22 02/14/22 02/14/22 18:59 06:59 18:59 Other: Voiding Method Toilet Toilet # Voids 3 2 - Labs CBC & Chem 7: 02/07/22 22:36 02/13/22 07:35 Labs: Abnormal Lab Results - Last 24 Hours (Table) 02/13/22 Range/Units 07:35 Carbon Dioxide 29.4 H (20.0-27.5) mmol/L Anion Gap 9.60 L (10.00-18.00) mmol/L
[2022-02-14 11:42] VITALS: BMI 30.7
[2022-02-14] MEDS: lisinopriL 20 MG TAB PO SCH (21:54)
[2022-02-15] MEDS: BENZTROPINE MESYLATE 0.5 MG TAB PO SCH ×2 (07:49→21:55)
[2022-02-15] MEDS: METOPROLOL TARTRATE 25 MG TAB PO SCH ×3 (07:49→21:55)
[2022-02-15] MEDS: ENOXAPARIN 40 MG/0.4 ML SYRINGE SQ SCH (07:52)
[2022-02-15] MEDS: ASPIRIN 81 MG PO SCH (07:52)
--- NOTE | 2022-02-15 09:48 | P.PN ---
Subjective Progress Note Date: 02/15/22 56 year old male with PMH of schizophrenia presents due to non compliance with psych follow up and treatment. He was petitioned for evaluation. He does admit to hearing voices. Denies suicidal or homicidal ideation. He tested positive for COVID 19, and will be admitted to the medical floor for monitoring. Patient was seen and examined. No acute events overnight. Nurse reports no new complaints. Seen pacing around his room. Gen: no acute distress HEENT: normocephalic, atraumatic, good hearing acuity, moist mucous membranes Resp: good air exchange, breathing comfortably with no accessory muscle use CVS: good distal perfusion x 4, GI: soft, NTTP, ND : no SPT, no CVAT, hawkins catheter not present MSK: no pitting edema, no clubbing Neuro: non-focal, moving all extremities Psych: cooperative, euthymic mood Assessment/plan: COVID-19 Supportive care. Isolation droplet and contact precautions. Monitor vital signs Not requiring supplemental oxygen Hypertension Restart Lisinopril and Metoprolol. Add Amlodipine. Monitor vitals, adjust medications if necessary. GERD Protonix Acute psychosis with auditory hallucinations Management per psych Lovenox for DVT prophylaxis. Patient will be FULL CODE. Objective - Vital Signs Vital signs: Vital Signs Temp 97.0 F L 02/15/22 08:00 Pulse 82 02/15/22 08:00 Resp 17 02/15/22 08:00 BP 172/118 02/15/22 08:00 Pulse Ox 98 02/15/22 08:00 FiO2 Intake & Output 02/14/22 02/15/22 02/15/22 18:59 06:59 18:59 Weight 86.183 kg Other: Voiding Method Toilet # Voids 10 1 # Bowel Movements 1 - Labs CBC & Chem 7: 02/07/22 22:36 02/13/22 07:35
[2022-02-15] MEDS: amLODIPine 10 MG TAB PO SCH (10:15)
[2022-02-15] MEDS: lisinopriL 20 MG TAB PO SCH (21:55)
[2022-02-15] MEDS: traZODone HCL 100 MG TAB PO PRN (21:59)
[2022-02-16] MEDS: METOPROLOL TARTRATE 25 MG TAB PO SCH ×3 (09:39→20:02)
[2022-02-16] MEDS: ASPIRIN 81 MG PO SCH (09:39)
[2022-02-16] MEDS: BENZTROPINE MESYLATE 0.5 MG TAB PO SCH ×2 (09:39→20:02)
[2022-02-16] MEDS: PANTOPRAZOLE 40 MG TABLET PO SCH (09:39)
[2022-02-16] MEDS: amLODIPine 10 MG TAB PO SCH (09:39)
[2022-02-16] MEDS: ENOXAPARIN 40 MG/0.4 ML SYRINGE SQ SCH (09:39)
--- NOTE | 2022-02-16 12:56 | P.PN ---
Subjective Progress Note Date: 02/16/22 56 year old male with PMH of schizophrenia presents due to non compliance with psych follow up and treatment. He was petitioned for evaluation. He does admit to hearing voices. Denies suicidal or homicidal ideation. He tested positive for COVID 19, and will be admitted to the medical floor for monitoring. Patient was seen and examined. No acute events overnight. Nurse reports no new complaints. Seen pacing around his room. Gen: no acute distress HEENT: normocephalic, atraumatic, good hearing acuity, moist mucous membranes Resp: good air exchange, breathing comfortably with no accessory muscle use CVS: good distal perfusion x 4, GI: soft, NTTP, ND : no SPT, no CVAT, hawkins catheter not present MSK: no pitting edema, no clubbing Neuro: non-focal, moving all extremities Psych: cooperative, euthymic mood Assessment/plan: COVID-19 Supportive care. Isolation droplet and contact precautions. Monitor vital signs Not requiring supplemental oxygen Hypertension Restart Lisinopril and Metoprolol. Add Amlodipine. Monitor vitals, adjust medications if necessary. GERD Protonix Acute psychosis with auditory hallucinations Management per psych Lovenox for DVT prophylaxis. Patient will be FULL CODE. Objective - Vital Signs Vital signs: Vital Signs Temp 98.0 F 02/16/22 10:00 Pulse 81 02/16/22 10:00 Resp 16 02/16/22 10:00 BP 129/83 02/16/22 10:00 Pulse Ox 96 02/16/22 10:00 FiO2 Intake & Output 02/15/22 02/16/22 02/16/22 18:59 06:59 18:59 Intake Total 120 Balance 120 Intake: Oral 120 Other: Voiding Method Toilet # Voids 10 1 # Bowel Movements 1 1 - Labs CBC & Chem 7: 02/07/22 22:36 02/13/22 07:35
--- NOTE | 2022-02-16 18:36 | P.PN ---
Progress Note - Text Progress Note Date: 02/16/22 Interval History: Patient was seen standing in his room and was directable and agreeable to speak with card writer hand in his room. The patient continues to express overtly psychotic symptoms. He continues to be extremely paranoid regarding multiple judges that reside in the [place] area. He denies HI or plan today. He is currently denying any suicidal ideation, intention, and/or plan. He does admit to auditory hallucinations and that the judges are speaking to him. He has been adherent with his medication and is not endorsing any significant side effects. The patient is in agreement to increasing his Prolixin today. He reports sleeping 1 hour and continues to be disorganized in speech. Mental Status Exam: General Appearance: Patient appears to be stated age is alert, at times difficult to direct, but is overall cooperative. Behavior: Patient displace psychomotor agitation is constant pacing. Speech: Patient's speech is monotone however spontaneous and may be at times hyperverbal and less interrupted. Mood/Affect: Mood is described as "not good." Affect appears to be blunted in range. Guarded and suspicious Suicidality/Homicidality: Patient is denying any overt suicidal just. Patient is endorsing homicidal ideation with no intention or plan. Perceptions: Patient reports auditory hallucinations and denies any visual hallucinations Though content/process: The patient does endorse significant delusional thought content including paranoia and persecution. Thought process with loose associations and flight of ideas. Memory and concentration: AOX3, grossly intact for the purposes of this session Judgment and insight: Poor Assessment Schizophrenia Alcohol use disorder Plan: -At this time patient DOES meet criteria for inpatient psychiatric admission. The patient currently presents with acute psychotic symptoms or placing him at risk of danger to self or others whether inadvertent or intentionally. -Would recommend the following medication changes/additions: We will increase Prolixin to 10 mg by mouth twice a day for psychosis Prolixin 50 mg IM was administered on 02/08/2022. -Continue 1:1 sitter for safety -Cannot leave AMA at this time. Patient will need a petition and certification if attempting to leave AMA. -Will continue to follow along -When medically stable, patient is eligible for transfer to a psych bed when available.
[2022-02-16] MEDS: ACETAMINOPHEN TAB 325 MG TAB PO PRN (19:10)
[2022-02-16] MEDS: traZODone HCL 100 MG TAB PO PRN (19:11)
[2022-02-16] MEDS: lisinopriL 20 MG TAB PO SCH (20:02)
[2022-02-17] MEDS: METOPROLOL TARTRATE 25 MG TAB PO SCH ×2 (09:10→14:59)
[2022-02-17] MEDS: BENZTROPINE MESYLATE 0.5 MG TAB PO SCH (09:10)
[2022-02-17] MEDS: amLODIPine 10 MG TAB PO SCH (09:10)
[2022-02-17] MEDS: ASPIRIN 81 MG PO SCH (09:11)
[2022-02-17] MEDS: ENOXAPARIN 40 MG/0.4 ML SYRINGE SQ SCH (09:11)
--- NOTE | 2022-02-17 11:21 | P.PN ---
Subjective Progress Note Date: 02/17/22 56 year old male with PMH of schizophrenia presents due to non compliance with psych follow up and treatment. He was petitioned for evaluation. He does admit to hearing voices. Denies suicidal or homicidal ideation. He tested positive for COVID 19, and will be admitted to the medical floor for monitoring. Patient was seen and examined. No acute events overnight. Nurse reports no new complaints. Seen pacing around his room. Gen: no acute distress HEENT: normocephalic, atraumatic, good hearing acuity, moist mucous membranes Resp: good air exchange, breathing comfortably with no accessory muscle use CVS: good distal perfusion x 4, GI: soft, NTTP, ND : no SPT, no CVAT, hawkins catheter not present MSK: no pitting edema, no clubbing Neuro: non-focal, moving all extremities Psych: cooperative, euthymic mood Assessment/plan: COVID-19 Supportive care. Isolation droplet and contact precautions. Monitor vital signs Not requiring supplemental oxygen Hypertension Restart Lisinopril and Metoprolol. Add Amlodipine. Monitor vitals, adjust medications if necessary. GERD Protonix Acute psychosis with auditory hallucinations Management per psych 10 days since positive COVID 19 test. Patient asymptomatic. Medically stable for transfer to mental health unit. Lovenox for DVT prophylaxis. Patient will be FULL CODE. Objective - Vital Signs Vital signs: Vital Signs Temp 98.3 F 02/17/22 10:19 Pulse 74 02/17/22 10:19 Resp 18 02/17/22 10:19 BP 127/90 02/17/22 10:19 Pulse Ox 98 02/17/22 10:19 FiO2 Intake & Output 02/16/22 02/17/22 02/17/22 18:59 06:59 18:59 Intake Total 120 Output Total 300 300 300 Balance -180 -300 -300 Intake: Oral 120 Output: Urine 300 300 300 Other: Voiding Method Toilet - Labs CBC & Chem 7: 02/07/22 22:36 02/13/22 07:35
[2022-02-17 15:04] VITALS: BP 132/84; PULSE 72; RESP 16; TEMP 97.8
--- NOTE | 2022-02-18 10:29 | P.DS ---
Providers Date of admission: 02/08/22 02:26 Expected date of discharge: 02/18/22 Attending physician: Carlee Barnes MD Consults: 02/08/22 02:26 Consult Physician Routine Consulting Provider: Jim Flores Consult Reason/Comments: psych admit w covid Do you want consulting provider notified?: Yes Primary care physician: [facility] Course: 56 year old male with PMH of schizophrenia presents due to non compliance with psych follow up and treatment. He was petitioned for evaluation. He does admit to hearing voices. Denies suicidal or homicidal ideation. He tested positive for COVID 19, and was admitted to the medical floor for monitoring. He did not show any signs or symptoms with regard to his COVID-19 diagnosis. Psychiatry was consulted and recommended inpatient psychiatric evaluation. Amlodipine was added to his antihypertensive medication regimen for better blood pressure control. He was discharged to psychiatric unit after 10 days of isolation on the medical floor. Gen: no acute distress HEENT: normocephalic, atraumatic, good hearing acuity, moist mucous membranes Resp: good air exchange, breathing comfortably with no accessory muscle use CVS: good distal perfusion x 4, GI: soft, NTTP, ND : no SPT, no CVAT, hawkins catheter not present MSK: no pitting edema, no clubbing Neuro: non-focal, moving all extremities Psych: cooperative, euthymic mood Discharge diagnosis: COVID-19 Hypertension GERD Acute psychosis with auditory hallucinations This complex discharge took about 35 minutes to complete. Patient Condition at Discharge: Stable Plan - Discharge Summary Discharge Rx Participant: No New Discharge Prescriptions: New amLODIPine [Norvasc] 10 mg PO DAILY tab lisinopriL [Zestril] 20 mg PO HS tab Continue Omeprazole 20 mg PO Q48H Metoprolol Tartrate [Lopressor] 25 mg PO TID Cholecalciferol (Vitamin D3) [Vitamin D3 (125 MCG = 5,000 IU)] 125 mcg PO Q48H Aspirin 81 mg PO DAILY 30 Days tab Acetaminophen Tab [Tylenol] 650 mg PO TID PRN PRN Reason: Fever And/ Or Pain Discontinued lisinopriL [Zestril] 30 mg PO DAILY No Action fluPHENAZine decanoate [Prolixin Decanoate] 50 mg IM Q28D Discharge Medication List Omeprazole 20 mg PO Q48H 01/10/19 [History] Cholecalciferol (Vitamin D3) [Vitamin D3 (125 MCG = 5,000 IU)] 125 mcg PO Q48H 01/04/21 [History] Aspirin 81 mg PO DAILY 30 Days tab 01/29/21 [Rx] Acetaminophen Tab [Tylenol] 650 mg PO TID PRN 05/07/21 [History] Metoprolol Tartrate [Lopressor] 25 mg PO TID 08/20/21 [History] fluPHENAZine decanoate [Prolixin Decanoate] 50 mg IM Q28D 08/20/21 [History] amLODIPine [Norvasc] 10 mg PO DAILY tab 02/17/22 [Rx] lisinopriL [Zestril] 20 mg PO HS tab 02/17/22 [Rx] Follow up Appointment(s)/Referral(s): [facility] [Primary Care Provider] - 1-2 days Patient Instructions/Handouts: Psychiatric Hallucinations (DC), COVID-19 (Coronavirus Disease 2019) (DC) Discharge Disposition: TRANSFER TO PSYCH HOSP/UNIT
== END 2022-02-17 15:02 | DRG 178 ==
LOC: EC 15:10 → 4SSUR 02-08 02:26
PROVIDERS: ADMIT Internal Medicine; ATTEND Internal Medicine
PROC: 8E0ZXY6 Isolation (ICD-10-PCS; principal; 2022-02-08)
DX: U07.1 COVID-19 (principal); E87.1 Hypo-osmolality and hyponatremia; E87.20 Acidosis, unspecified; F20.9 Schizophrenia, unspecified; F32.A Depression, unspecified; E87.6 Hypokalemia; E87.8 Other disorders of electrolyte and fluid balance, not elsewhere classified; F10.10 Alcohol abuse, uncomplicated; F41.9 Anxiety disorder, unspecified; I10 Essential (primary) hypertension; K21.9 Gastro-esophageal reflux disease without esophagitis; Z79.82 Long term (current) use of aspirin; Z79.899 Other long term (current) drug therapy; Z81.8 Family history of other mental and behavioral disorders; Z91.14 Patient's other noncompliance with medication regimen; Z91.199 Patient's noncompliance with other medical treatment and regimen due to unspecified reason; Z56.0 Unemployment, unspecified
CPT/HCPCS: 36415; 80048; 80053; 82075; 85025; 87635

== ENCOUNTER 2022-02-17 14:43 | Inpatient (IN) | payer MEDICARE, MEDICAID ==
[2022-02-17] MEDS ORDERED: MAG HYDROX/AL HYDROX/SIMETH 30 ML CUP PO PRN (14:59)
[2022-02-17] MEDS ORDERED: HALOPERIDOL LACTATE 5 MG/ML 1 ML VIAL IM PRN (14:59)
[2022-02-17] MEDS ORDERED: MAGNESIUM HYDROXIDE 2,400 MG/10 ML CUP PO PRN (14:59)
[2022-02-17] MEDS ORDERED: fluPHENAZine DECANOATE 25 MG/ML 5ML MDV IM SCH (15:15)
[2022-02-17] MEDS ORDERED: CHOLECALCIFEROL 125 MCG (5000 IU) TABLET PO SCH (15:15)
[2022-02-17] MEDS ORDERED: PANTOPRAZOLE 40 MG TABLET PO SCH (15:15)
[2022-02-17] MEDS ORDERED: PANTOPRAZOLE 40 MG TABLET PO ONE (15:15)
[2022-02-17] MEDS ORDERED: CHOLECALCIFEROL 125 MCG (5000 IU) TABLET PO ONE (15:15)
[2022-02-17] MEDS: METOPROLOL TARTRATE 25 MG TAB PO SCH ×2 (15:53→21:07)
[2022-02-17] MEDS: LORazepam 1 MG TAB PO PRN (20:31)
[2022-02-17] MEDS: lisinopriL 20 MG TAB PO SCH (20:31)
[2022-02-18] MEDS: METOPROLOL TARTRATE 25 MG TAB PO SCH ×3 (08:34→21:17)
[2022-02-18] MEDS: ASPIRIN 81 MG PO SCH (08:34)
[2022-02-18] MEDS: NICOTINE 14MG/24HR PATCH TRANSDERM SCH (09:11)
--- NOTE | 2022-02-18 13:11 | P.HP ---
Psychiatric H&P - . H&P Date: 02/18/22 History & Physical: Allergies Allergy/AdvReac Type Severity Reaction Status Date / Time No Known Allergies Allergy Verified 12/21/21 12:43 Vital Signs Temp 97.3 F L 02/17/22 14:53 Pulse 86 02/17/22 14:53 Resp 20 02/17/22 14:53 BP 136/86 02/17/22 14:53 Pulse Ox 98 02/17/22 14:53 FiO2 Intake & Output 02/17/22 02/18/22 02/18/22 18:59 06:59 18:59 Weight 86.183 kg 02/18/22 13:10 IDENTIFYING DATA: Patient is a 56-year-old single, on SSD, male with a significant history of schizophrenia and alcohol use disorder presenting to the hospital on 02/07/2022, brought in on a pickup order due to noncompliance with court ordered mental health treatment. HPI: Patient presented to the hospital on 02/07/[address] ordered mental health treatment. However, the patient did test positive for Covid-19 and was subsequently admitted medically. Upon assessment on the medical floor, the patient did endorse significant psychotic symptoms including a conspiracy about Judge Limon, Dr. Jacinto, and others in power in the [facility] that have been plotting against him. As per initial psychiatric evaluation on 02/08/2022 by , the patient was noted to be very illogical and making very loose associations. He was endorsing significant auditory hallucinations at that time. During the patient's hospitalization, he displayed no significant improvement regards to his target symptoms of psychosis. Once medically cleared for admission, the patient was subsequently transferred to our psychiatric unit. Upon evaluation on the psychiatric unit, the patient is currently reporting that he continues to experience auditory hallucinations from "Consulting Sales Manager Limon." He expresses that "they are all trying to screw me over about this carjacking." He states that he has been unable to sleep due to the nonstop auditory hallucinations that he experiences. He otherwise denies any visual hallucinations. The patient reports that he wants to go to court because he mccollum s not want to take any more long-acting injectable medication. The patient is otherwise not reporting any suicidal or homicidal ideation, intent, and/or plan. He reports no changes in his appetite. He just reports poor sleep. PAST PSYCHIATRIC HISTORY: Patient has been previously diagnosed with schizophrenia and alcohol use disorder. The patient is currently on a regimen of Prolixin Decanoate and oral Prolixin. The patient has had multiple inpatient psychiatric admissions with his last time being in May 2021. He is currently open with [facility]. Patient has no reported previous suicide attempts. PMH: Past Medical History: GERD/Reflux, Hypertension, Vascular Disorder Additional Past Medical History / Comment(s): ETOH abuse, alcohol withdrawl with tremens, diverticular disease, benign colon polyp, varicose veins. History of Any Multi-Drug Resistant Organisms: None Reported Past Surgical History: No Surgical Hx Reported Additional Past Surgical History / Comment(s): Teeth extractions, colonoscopies. Past Anesthesia/Blood Transfusion Reactions: No Reported Reaction Additional Past Anesthesia/Blood Transfusion Reaction / Comment(s): Never had Past Psychological History: Anxiety, Depression, Schizophrenia Smoking Status: Never smoker Past Alcohol Use History: Heavy Past Drug Use History: None Reported ALLERGIES: NO KNOWN DRUG ALLERGIES CHEMICAL DEPENDENCY HISTORY: Patient does admit to heavy alcohol use, approximately a fifth of liquor per day. However is denying any current wi thdrawal symptoms and has been more than a week since his last alcoholic beverage. No reported tobacco or marijuana use. No reported drug use. FAMILY PSYCHIATRIC/SUBSTANCE USE HISTORY: No reported family psychiatric history. One of his cousins reportedly committed suicide by carbon monoxide poisoning. SOCIAL HISTORY: Patient was born and raised in [place] by his parents. He currently lives by himself. He is unemployed and receives Social Security disability. He attended some college. MENTAL STATUS EXAM: General Appearance: Patient appears to be stated age is alert, directable, and attempts to cooperate. Patient appears to have fair hygiene and grooming. Behavior: Patient is lying down in bed without any agitated behavior. Eye contact is appropriate. Speech: Patient's speech is spontaneous however monotone. Mood/Affect: Patient reports their mood is "I did not sleep." Affect is blunted. Suicidality/Homicidality: Patient denies having any homicidal ideation intent or plan. Denies any suicidal ideations intent or plan Perceptions: Patient denies any visual hallucinations however the patient endorses auditory hallucinations. Though content/process: There is no evidence of any delusional thought content and thought process is linear and goal-directed. Memory and concentration: AOX3, grossly intact for the purposes of this session. Can spell "WORLD" backwards Judgment and insight: Fair STRENGTHS/WEAKNESSES: Strength is that the patient is resilient. Weakness is that the patient engaged in heavy substance abuse and has very treatment resistant schizophrenia. INTELLECT: average IMPRESSIONS: Schizophrenia Alcohol use disorder PLAN: -Patient is admitted under involuntary status to MHU for stabilization of psychiatric symptoms and safety. Patient is currently under court order for mental health treatment. -Medications : Will start patient on Clozaril 25 mg by mouth at bedtime for treatment resistant schizophrenia Decrease Prolixin to 10 mg daily for management of acute psychosis. Plan is to cross titrate to Clozaril for management of treatment resistant schizophrenia -Ativan and Haldol PRN for agitation/aggression -Patient was counseled on substance abuse however appears to be contemplative. -Patient was informed of the risks, benefits and side effects of the medication and patient verbally consented to taking the medications. Patient signed med consent form and was placed in chart. -Internal Medicine consult to perform medical evaluation and physical. -NRT - nicotine patch -SW on board for discharge planning. Encourage patient to participate in groups to work on coping skills. 02/18/22 13:10
[2022-02-18 14:45] LABS: HDL Cholesterol 82.5 mg/dL (40.00-60.00); Triglycerides 31.4 mg/dL (0.00-149.00)
[2022-02-18 14:57] LABS: Chol/HDL Ratio 1.28 Ratio
--- NOTE | 2022-02-18 17:09 | P.MDCNMH ---
History of Present Illness H&P Date: 02/18/22 56 year old male with PMH of schizophrenia presents due to non compliance with psych follow up and treatment. He was petitioned for evaluation. He does admit to hearing voices. Denies suicidal or homicidal ideation. He tested positive for COVID 19, and was admitted to the medical floor for monitoring. He did not show any signs or symptoms with regard to his COVID-19 diagnosis. Psychiatry was consulted and recommended inpatient psychiatric evaluation. Amlodipine was added to his antihypertensive medication regimen for better blood pressure control. He was discharged to psychiatric unit after 10 days of isolation on the medical floor. Patient was seen and examined on the psychiatric unit. He reports some rhinorrhea but denies any other complaints. He denies any headache, lower extremity edema, nausea vomiting, fever chills, cough, chest pain, shortness of breath, palpitations, changes in urination or bowel habits. No changes in appetite or weight. He denies any lightheadedness, numbness/weakness/tingling of the extremities General: non toxic, no distress, appears at stated age Derm: warm, dry Head: atraumatic, normocephalic, symmetric Eyes: EOMI, no lid lag, anicteric sclera Mouth: no lip lesion, mucus membranes moist Cardiovascular: S1S2 reg, no murmur, positive posterior tibial pulse bilateral, Lungs: CTA bilateral, no rhonchi, no rales , no accessory muscle use Abdominal: soft, nontender to palpation, no guarding, no appreciable organomegaly Ext: no gross muscle atrophy, no edema, no contractures Neuro: CN II-XI grossly intact, no focal neuro deficits Psych: Alert, oriented, appropriate affect Assessment/plan: COVID-19 Supportive care. Isolation droplet and contact precautions. Monitor vital signs Not requiring supplemental oxygen Hypertension Restart Lisinopril and Metoprolol. Add Amlodipine. Monitor vitals, adjust medications if necessary. GERD Protonix Acute psychosis with auditory hallucinations Management per psych Past Medical History Past Medical History: GERD/Reflux, Hypertension, Vascular Disorder Additional Past Medical History / Comment(s): ETOH abuse, alcohol withdrawl with tremens, diverticular disease, benign colon polyp, varicose veins. History of Any Multi-Drug Resistant Organisms: None Reported Past Surgical History: No Surgical Hx Reported Additional Past Surgical History / Comment(s): Teeth extractions, colonoscopies. Past Anesthesia/Blood Transfusion Reactions: No Reported Reaction Additional Past Anesthesia/Blood Transfusion Reaction / Comment(s): Never had Past Psychological History: Anxiety, Depression, Schizophrenia Additional Psychological History / Comment(s): Pt resides with his brother, Bert Askew. Pt does not drive, his brother drives him or he takes the bus. He goes to [facility]. He manages his own medications. Smoking Status: Never smoker Past Alcohol Use History: Heavy Additional Past Alcohol Use History / Comment(s): Pt has ETOH abuse Past Drug Use History: None Reported - Past Family History Father Family Medical History: Myocardial Infarction ([place]) Additional Family Medical History / Comment(s): AT AGE 58 FROM [place] Mother Family Medical History: Deep Vein Thrombosis (DVT), Hypertension Additional Family Medical History / Comment(s): PRIMARY PULMONARY HYPERTENSION Medications and Allergies Home Medications Medication Instructions Recorded Confirmed Type Omeprazole 20 mg PO Q48H 05/14/18 02/17/22 History Cholecalciferol (Vitamin D3) 125 mcg PO Q48H 01/04/21 02/17/22 History [Vitamin D3 (125 MCG = 5,000 IU)] Aspirin 81 mg PO DAILY 30 Days tab 01/29/21 02/17/22 Rx Acetaminophen Tab [Tylenol] 650 mg PO TID PRN 05/07/21 02/17/22 History Metoprolol Tartrate [Lopressor] 25 mg PO TID 08/20/21 02/17/22 History fluPHENAZine decanoate [Prolixin 50 mg IM Q28D 08/20/21 02/17/22 History Decanoate] amLODIPine [Norvasc] 10 mg PO DAILY tab 02/17/22 02/17/22 Rx lisinopriL [Zestril] 20 mg PO HS tab 02/17/22 02/17/22 Rx Allergies Allergy/AdvReac Type Severity Reaction Status Date / Time No Known Allergies Allergy Verified 12/21/21 12:43 Physical Exam Vitals: Vital Signs Pulse Resp BP 02/18/22 16:00 104 H 20 122/86 Cranial Nerve Examination - Cranial Nerves Cranial Nerve I- Olfactory: Intact Cranial Nerve II- Optic: Intact Cranial Nerve III- Oculomotor: Intact Cranial Nerve IV- Trochlear: Intact Cranial Nerve V- Trigeminal: Intact Cranial Nerve - Abducens: Intact Cranial Nerve VII- Facial: Intact Cranial Nerve VIII- Auditory: Intact Cranial Nerve IX- Glossopharyngeal: Intact Cranial Nerve X- Vagus: Intact Cranial Nerve XI- Accessory: Intact Cranial Nerve XII- Hypoglossal: Intact Results Labs: Abnormal Lab Results - Last 24 Hours (Table) 02/18/22 Range/Units 08:03 HDL Cholesterol 82.50 H (40.00-60.00) mg/dL
[2022-02-18] MEDS ORDERED: cloZAPine 25 MG TAB PO SCH (21:00)
[2022-02-18] MEDS: lisinopriL 20 MG TAB PO SCH (21:17)
[2022-02-19] MEDS: CHOLECALCIFEROL 125 MCG (5000 IU) TABLET PO SCH (08:36)
[2022-02-19] MEDS: METOPROLOL TARTRATE 25 MG TAB PO SCH ×3 (08:37→20:51)
[2022-02-19] MEDS: ASPIRIN 81 MG PO SCH (08:37)
[2022-02-19] MEDS: PANTOPRAZOLE 40 MG TABLET PO SCH (08:37)
[2022-02-19] MEDS: NICOTINE 14MG/24HR PATCH TRANSDERM SCH (08:42)
--- NOTE | 2022-02-19 11:19 | P.PN ---
Progress Note - Text Progress Note Date: 02/19/22 Interval History: Patient was seen resting in bed and was directable and agreeable to speak with aligner typewriter in his room. Currently, the patient continues to endorse auditory hallucinations and paranoid delusions regarding Tentering Machine Off Bearer Ashly. He does express that he is able to sleep better last night. He is denying any suicidal or homicidal ideation, intention, and/or plan. He has been transitioning to Clozaril and reports that he is tolerating the medication well however has been experiencing increased diarrhea. He otherwise denies any chest pain, palpitations, shortness of breath, or any musculoskeletal issues. The patient continues to maintain that he does not need any long-acting injectable medication. Collateral information provided by the patient's brother reveals that the patient has been previously trialed on Clozaril however experienced hypotension and had a fall secondary to the medication. We will continue to encourage fluids for the patient and monitor his blood pressure. Mental Status Exam: General Appearance: Patient appears to be stated age is alert, directable, and cooperative. Behavior: . lying down in bed without any agitated behavior. Eye contact is appropriate. Speech: Patient's speech is fluent and nonpressured. Mood/Affect: Mood is improving mildly, affect is congruent and blunted. Suicidality/Homicidality: Patient denies having any suicidal or homicidal ideation intent or plan. Perceptions: Patient denies any visual hallucinations. The patient continues to express auditory hallucinations. Though content/process: Patient continues to express delusional thoughts and paranoia towards Tentering Machine Off Bearer Ashly. Memory and concentration: AOX3, grossly intact for the purposes of this session Judgment and insight: Improving mildly Vital Signs Temp 97.6 F 02/19/22 06:06 Pulse 88 02/19/22 08:43 Resp 16 02/19/22 06:06 BP 101/58 02/19/22 08:43 Pulse Ox 96 02/19/22 06:06 FiO2 Intake & Output 02/18/22 02/19/22 02/19/22 18:59 06:59 18:59 Weight 86.183 kg Laboratory Results - Last 24 Hours 02/18/22 02/18/22 08:03 08:[address] Glu mg/dL 99 Hemoglobin A1c 5.1 Triglycerides 31.40 Cholesterol 106.00 LDL Cholesterol Direct 25.00 LDL Cholesterol, Calc VLDL Cholesterol, Calc HDL Cholesterol 82.50 H Cholesterol/HDL Ratio 1.28 Assessment Schizophrenia Alcohol use disorder Plan: -Patient continues to meet criteria for inpatient psychiatric admission for symptom stabilization and safety. Patient has signed adult voluntary form and medication consent and was placed in patient's chart. 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 -NRT - nicotine patch -SW on board for discharge planning. Encouraged the patient to participate in milieu.
[2022-02-19] MEDS: ACETAMINOPHEN TAB 325 MG TAB PO PRN (14:34)
[2022-02-19] MEDS: lisinopriL 20 MG TAB PO SCH (20:51)
[2022-02-19] MEDS: cloZAPine 25 MG TAB PO SCH (20:51)
[2022-02-20 07:16] LABS: Basophils % (A) 0 %; Eosinophils % (A) 0 %; HCT 42.1 % (39.0-53.0); HGB 15.4 gm/dL (13.0-17.5); Lymphocytes # (A) 0.3 k/uL (1.0-4.8); Lymphocytes % (A) 7 %; MCH 33.3 pg (25.0-35.0); MCHC 36.6 g/dL (31.0-37.0); MCV 90.9 fL (80.0-100.0); Mean Platelet Volume 8.1; Monocytes # (A) 0.2 k/uL (0-1.0); Monocytes % (A) 5 %; Neutrophils # (A) 3.6 k/uL (1.3-7.7); Neutrophils % (A) 86 %; Platelet Count 170 k/uL (150-450); RBC 4.63 m/uL (4.30-5.90); RDW 12.1 % (11.5-15.5); WBC 4.2 k/uL (3.8-10.6)
[2022-02-20] MEDS: METOPROLOL TARTRATE 25 MG TAB PO SCH ×3 (09:16→20:50)
[2022-02-20] MEDS: LOPERAMIDE 2 MG CAP PO PRN ×2 (09:16→16:59)
[2022-02-20] MEDS: ASPIRIN 81 MG PO SCH (09:16)
--- NOTE | 2022-02-20 11:38 | P.PN ---
Progress Note - Text Progress Note Date: 02/20/22 Interval History: Patient was seen resting in bed and was directable and agreeable to speak with keno writer in his room. Currently, the patient is expressing that he is feeling slightly better. He reports that he did not experience as many auditory hallucinations and was able to sleep better last night. He is currently denying any suicidal or homicidal ideation, intention, and/or plan. He is not reporting any visual hallucinations however continues to express that he expresses auditory hallucinations. It should be noted that the staff have noticed that the patient was quite somnolent with his medication regimen which attributed to the patient's soiling himself on his bed. The patient reports to this provider that he did experience a fall however no falls been documented. He was encouraged to slowly get out of bed out of concern for orthostatic hypotension. The patient is otherwise tolerating his medications well and is not reporting any significant side effects at this time. Mental Status Exam: General Appearance: Patient appears to be stated age is alert, directable, and cooperative. Behavior: Patient is lying down in bed without any agitated behavior.. Eye contact is appropriate. Speech: Patient's speech is fluent and nonpressured. Mood/Affect: Mood is improving mildly, affect is congruent and blunted. Suicidality/Homicidality: Patient denies having any suicidal or homicidal ideation intent or plan. Perceptions: Patient denies any visual hallucinations. The patient continues to express auditory hallucinations however states that these have decreased. Though content/process: Patient reports delusional thoughts however is less paranoid in regards to his feelings towards administrative sales assistant Limon. Memory and concentration: AOX3, grossly intact for the purposes of this session Judgment and insight: Improving mildly Vital Signs Temp 97.6 F 02/20/22 06:17 Pulse 95 02/20/22 06:17 Resp 16 02/20/22 06:17 BP 137/83 02/20/22 06:17 Pulse Ox 96 02/19/22 06:06 FiO2 Laboratory Results - Last 24 Hours 02/20/22 06:29 WBC 4.2 RBC 4.63 Hgb 15.4 Hct 42.1 MCV 90.9 MCH 33.3 MCHC 36.6 RDW 12.1 Plt Count 170 MPV 8.1 Neutrophils % 86 Lymphocytes % 7 Monocytes % 5 Eosinophils % 0 Basophils % 0 Neutrophils # 3.6 Lymphocytes # 0.3 L Monocytes # 0.2 Eosinophils # 0.0 Basophils # 0.0 Assessment Schizophrenia Alcohol use disorder Plan: -Patient continues to meet criteria for inpatient psychiatric admission for symptom stabilization and safety. Patient has signed adult voluntary form and medication consent and was placed in patient's chart. -Medications: We will continue Clozaril 50 mg by mouth at bedtime for treatment resistant schizophrenia Discontinue Prolixin. -Will order orthostatic vitals tomorrow depending patient tolerance of medications. Patient was encouraged to increase his fluid intake. -When necessary Ativan and Haldol for agitation/aggression. -NRT - nicotine patch -SW on board for discharge planning. Encouraged the patient to participate in milieu.
[2022-02-20] MEDS: ACETAMINOPHEN TAB 325 MG TAB PO PRN (14:45)
[2022-02-20] MEDS: lisinopriL 20 MG TAB PO SCH (20:50)
[2022-02-20] MEDS: cloZAPine 25 MG TAB PO SCH (20:50)
[2022-02-21] MEDS: ASPIRIN 81 MG PO SCH (09:45)
[2022-02-21] MEDS: PANTOPRAZOLE 40 MG TABLET PO SCH (09:45)
[2022-02-21] MEDS: METOPROLOL TARTRATE 25 MG TAB PO SCH ×4 (09:45→20:24)
[2022-02-21] MEDS: CHOLECALCIFEROL 125 MCG (5000 IU) TABLET PO SCH (09:45)
--- NOTE | 2022-02-21 12:50 | P.PN ---
Progress Note - Text Progress Note Date: 02/21/22 Interval History: Patient was seen resting in a bed after an A-team was called due to a fall and was directable and agreeable to speak with comic book writer in the hallway. The patient reports that he is feeling better. He reports that he was feeling lightheaded and experienced a fall and ended up falling on his upper extremities. This fall was witnessed and no head trauma was observed. The patient is otherwise reporting that he is not experiencing as many auditory hallucinations and is not expressing any significant paranoia today. The patient has been on Clozaril in the past and has also experienced orthostatic hypotension with a fall in the past as well. Despite significant improvement in regards his target symptoms of psychosis, the patient does admit that the Clozaril causes him significant hypertension and is difficult to tolerate. He is agreeable to switching back to Prolixin however we will hold medications today. Mental Status Exam: General Appearance: Patient appears to be stated age is alert, directable, and cooperative. Behavior: Patient is lying down in bed without any agitated behavior.. Eye contact is appropriate. Speech: Patient's speech is fluent and nonpressured. Mood/Affect: Mood is improving mildly, affect is congruent and blunted. Suicidality/Homicidality: Patient denies having any suicidal or homicidal ideation intent or plan. Perceptions: Patient denies any visual hallucinations. He reports no auditory hallucinations today. Though content/process: The patient does not endorse any paranoid or bizarre delusions today. Memory and concentration: AOX3, grossly intact for the purposes of this session Judgment and insight: Improving mildly Vital Signs Temp 97.7 F 02/21/22 06:41 Pulse 107 H 02/21/22 10:25 Resp 20 02/21/22 09:35 BP 131/71 02/21/22 10:25 Pulse Ox 97 02/21/22 09:30 FiO2 Assessment Schizophrenia Alcohol use disorder Plan: -Patient continues to meet criteria for inpatient psychiatric admission for symptom stabilization and safety. Patient has signed adult voluntary form and medication consent and was placed in patient's chart. -Medications: Discontinue Clozaril at this time. We will reinitiate Prolixin tomorrow with plans to transition back to Prolixin Decanoate. -When necessary Ativan and Haldol for agitation/aggression. -NRT - nicotine patch -SW on board for discharge planning. Encouraged the patient to participate in milieu.
[2022-02-21] MEDS: LORazepam 1 MG TAB PO PRN (17:07)
[2022-02-21] MEDS: ACETAMINOPHEN TAB 325 MG TAB PO PRN (17:27)
[2022-02-21] MEDS: lisinopriL 20 MG TAB PO SCH (20:24)
[2022-02-22] MEDS: METOPROLOL TARTRATE 25 MG TAB PO SCH ×3 (08:32→21:03)
[2022-02-22] MEDS: ASPIRIN 81 MG PO SCH (09:00)
--- NOTE | 2022-02-22 13:28 | P.PN ---
Progress Note - Text Progress Note Date: 02/22/22 Interval History: Patient was seen resting in a bed and was agreeable to speak with typewriter mechanic in his room. Currently, the patient is not reporting any suicidal or homicidal ideation, intention, and/or plan. He reports his auditory hallucinations 1 out of 10 in severity with 10 being very severe. He states that he had some difficulty falling asleep last night but was able to do so. He is otherwise not reporting any visual hallucinations or paranoia today. The patient reports no issues regarding any medical issues or concerns at this time aside from mild lightheadedness and fatigue. He is agreement to hold Prolixin at this time with plans to reinitiate the medication over this weekend. Mental Status Exam: General Appearance: Patient appears to be stated age is alert, directable, and cooperative. Behavior: Patient is lying down in bed without any agitated behavior. Eye contact is appropriate. Speech: Patient's speech is fluent and nonpressured. Mood/Affect: Mood is improving mildly, affect is congruent and blunted. Suicidality/Homicidality: Patient denies having any suicidal or homicidal ideation intent or plan. Perceptions: Patient denies any visual hallucinations. Patient reports auditory hallucinations. Though content/process: The patient does not endorse any paranoid or bizarre delusions today. Memory and concentration: AOX3, grossly intact for the purposes of this session Judgment and insight: Improving mildly Vital Signs Temp 99.2 F 02/22/22 12:23 Pulse 95 02/22/22 12:23 Resp 16 02/22/22 12:23 BP 103/66 02/22/22 12:23 Pulse Ox 96 02/22/22 06:58 FiO2 Assessment Schizophrenia Alcohol use disorder Plan: -Patient continues to meet criteria for inpatient psychiatric admission for symptom stabilization and safety. Patient has signed adult voluntary form and medication consent and was placed in patient's chart. -Medications: As the patient had a fall secondary to orthostatic hypotension from Clozaril, Clozaril will continue to be discontinued. Tomorrow we will reinitiate Prolixin at 1 mg by mouth twice a day and we will be conservative with its titration. Start Trazodone 100 mg by mouth at bedtime per patient preference for insomnia. -When necessary Ativan and Haldol for agitation/aggression. -NRT - nicotine patch -SW on board for discharge planning. Encouraged the patient to participate in milieu.
[2022-02-22] MEDS: ACETAMINOPHEN TAB 325 MG TAB PO PRN (17:41)
[2022-02-22] MEDS: lisinopriL 20 MG TAB PO SCH (20:14)
[2022-02-22] MEDS: traZODone HCL 100 MG TAB PO SCH (20:18)
[2022-02-23] MEDS: METOPROLOL TARTRATE 25 MG TAB PO SCH ×3 (08:23→21:27)
[2022-02-23] MEDS: CHOLECALCIFEROL 125 MCG (5000 IU) TABLET PO SCH (08:23)
[2022-02-23] MEDS: ASPIRIN 81 MG PO SCH (08:23)
[2022-02-23] MEDS: PANTOPRAZOLE 40 MG TABLET PO SCH (08:23)
[2022-02-23] MEDS: traZODone HCL 100 MG TAB PO SCH (20:32)
[2022-02-23] MEDS: lisinopriL 20 MG TAB PO SCH (20:32)
[2022-02-24] MEDS: ASPIRIN 81 MG PO SCH (09:30)
[2022-02-24] MEDS: METOPROLOL TARTRATE 25 MG TAB PO SCH ×3 (09:30→21:34)
--- NOTE | 2022-02-24 14:34 | P.PN ---
Progress Note - Text Progress Note Date: 02/23/22 Interval history: Patient was seen laying in his bed and was directable and agreeable to speak with entry writer. He appears withdrawn and irritable, and asks my name so he can write it down and asks about discharge, appears paranoid and attending to internal stimuli. At this time, patient denies any suicidal or homicidal ideation, intent or plan. Patient denies any side effects from the medications and has been compliant with meds. Mental status exam: General Appearance: Patient appears to be stated age, dressed in casual attire. Behavior: No agitated behavior. Patient is withdrawn and isolates to his room, guarded. . Speech: Patient's speech is fluent and non-pressured, low tone. Mood/Affect: Mood is irritable, affect is congruent and constricted. Suicidality/Homicidality: Patient denies having any suicidal or homicidal ideation intent or plan. Perceptions: Patient denies any auditory or visual hallucinations, but appears to be attending to internal stimuli. Though content/process: No overt delusional thoughts expressed. Linear,concrete. Memory and concentration: AOX3, grossly intact for the purposes of this session Judgment and insight: fair Assessment/Plan: Continue with current diagnosis. Patient continues to meet criteria for inpatient psychiatric admission for symptom stabilization and safety. Patient will be maintained on current psychotropic medication regimen. Monitor for medication compliance and for any psychotropic medication side effects. Will continue to monitor ongoing response to treatment. Encouraged participation in milieu.
[2022-02-24] MEDS: traZODone HCL 100 MG TAB PO SCH (20:04)
[2022-02-24] MEDS: lisinopriL 20 MG TAB PO SCH (20:05)
--- NOTE | 2022-02-24 23:15 | P.PN ---
Progress Note - Text Progress Note Date: 02/24/22 Interval history: Patient was seen isolating to his room and was directable and agreeable to speak with telegraphic typewriter operator. He continues to be withdrawn, guarded and with irritable edge, appears paranoid and attending to internal stimuli. At this time, patient denies any suicidal or homicidal ideation, intent or plan. Patient denies any side effects from the medications and has been compliant with meds. Mental status exam: General Appearance: Patient appears to be stated age, dressed in casual attire. Behavior: No agitated behavior. Patient is withdrawn and isolates to his room, guarded. . Speech: Patient's speech is fluent and non-pressured, low tone. Mood/Affect: Mood is irritable, affect is congruent and constricted. Suicidality/Homicidality: Patient denies having any suicidal or homicidal ideation intent or plan. Perceptions: Patient denies any auditory or visual hallucinations, but appears to be attending to internal stimuli. Though content/process: No overt delusional thoughts expressed. Linear,concrete. Memory and concentration: AOX3, grossly intact for the purposes of this session Judgment and insight: fair Assessment/Plan: Continue with current diagnosis. Patient continues to meet criteria for inpatient psychiatric admission for symptom stabilization and safety. Increase Prolixin to 2 mg BID for psychosis. Monitor for medication compliance and for any psychotropic medication side effects. Will continue to monitor ongoing response to treatment. Encouraged participation in milieu.
[2022-02-25] MEDS: PANTOPRAZOLE 40 MG TABLET PO SCH (09:04)
[2022-02-25] MEDS: ASPIRIN 81 MG PO SCH (09:04)
[2022-02-25] MEDS: CHOLECALCIFEROL 125 MCG (5000 IU) TABLET PO SCH (09:04)
[2022-02-25] MEDS: METOPROLOL TARTRATE 25 MG TAB PO SCH ×3 (09:04→20:48)
--- NOTE | 2022-02-25 12:26 | P.PN ---
Progress Note - Text Progress Note Date: 02/25/22 Interval History: Patient was seen wandering the hallways and was directable and agreeable to speak with com writer in his room. Currently, the patient is not reporting any suicidal or homicidal ideation, intention, and/or plan. He rates his auditory hallucinations 2 out of 10 in severity with 10 being very severe. The patient does admit that he we'll continue to drink heavily upon discharge. He approximates that he will go through a half gallon of liquor over 3 days. He is not interested in starting naltrexone at this time. He is currently not reporting any any concerns regarding any paranoia or delusion no thoughts to this provider today. He is anticipated for discharge tomorrow. Collateral information obtained by the patient's sister reports that the patient has been drinking rum and Coke as his drink of choice. She states that he constantly drinks caffeinated Coke and approximates multiple liters of coke per sitting. Mental Status Exam: General Appearance: Patient appears to be stated age is alert, directable, and cooperative. Behavior: Patient is calmly seated without any agitated behavior. Speech: Patient's speech is fluent and nonpressured. Mood/Affect: Mood is improving mildly, affect is congruent and constricted. Suicidality/Homicidality: Patient denies having any suicidal or homicidal ideation intent or plan. Perceptions: Patient denies any visual hallucinations but reports auditory hallucinations. Though content/process: There is no evidence of any delusional thought content and thought process is linear and goal-directed. Memory and concentration: AOX3, grossly intact for the purposes of this session Judgment and insight: Improving mildly Vital Signs Temp 97.7 F 02/25/22 07:01 Pulse 76 02/25/22 07:01 Resp 14 02/25/22 07:01 BP 127/86 02/25/22 07:01 Pulse Ox 97 02/25/22 07:01 FiO2 Intake & Output 02/24/22 02/25/22 02/25/22 18:59 06:59 18:59 Weight 88.1 kg Assessment Schizophrenia Alcohol use disorder Plan: -Patient continues to meet criteria for inpatient psychiatric admission for symptom stabilization and safety. Patient is currently on an order. -Medications: Continue Prolixin 2 mg by mouth twice a day for psychosis Trazodone 100 mg by mouth at bedtime for insomnia This provider discussed starting naltrexone for alcohol use disorder however the patient is pre-contemplative in regards to his alcohol use. He does not wish to quit. He does not wish to start any new medications. -When necessary Ativan and Haldol for agitation/aggression. -SW on board for discharge planning. Encouraged the patient to participate in milieu.
[2022-02-25] MEDS: traZODone HCL 100 MG TAB PO SCH (20:48)
[2022-02-26 06:55] VITALS: BP 132/88; PULSE 67; RESP 17; TEMP 98.1
[2022-02-26] MEDS: METOPROLOL TARTRATE 25 MG TAB PO SCH (08:54)
[2022-02-26] MEDS: ASPIRIN 81 MG PO SCH (08:55)
--- NOTE | 2022-02-26 13:37 | P.DS ---
Providers Date of admission: 02/17/22 14:43 Expected date of discharge: 02/26/22 Attending physician: Jim Flores MD Consults: 02/17/22 18:14 Consult Physician Routine Consulting Provider: Deng Dyson Consult Reason/Comments: Medical management Do you want consulting provider notified?: Yes Primary care physician: [facility] - Discharge Diagnosis(es) (1) Schizophrenia, acute Current Visit: Yes Status: Acute Priority: High (2) Alcohol use disorder Current Visit: Yes Status: Chronic Priority: Medium Hospital Course: Admission HPI: Patient is a 56-year-old single, on SSD, male with a significant history of schizophrenia and alcohol use disorder presenting to the hospital on 02/07/2022, brought in on a pickup order due to noncompliance with court ordered mental health treatment. Patient presented to the hospital on 02/07/[address] ordered mental health treatment. However, the patient did test positive for Covid-19 and was subsequently admitted medically. Upon assessment on the medical floor, the patient did endorse significant psychotic symptoms including a conspiracy about Judge Limon, Dr. Jacinto, and others in power in the [facility] that have been plotting against him. As per initial psychiatric evaluation on 02/08/2022 by , the patient was noted to be very illogical and making very loose associations. He was endorsing significant auditory hallucinations at that time. During the patient's hospitalization, he displayed no significant improvement regards to his target symptoms of psychosis. Once medically cleared for admission, the patient was subsequently transferred to our psychiatric unit. Upon evaluation on the psychiatric unit, the patient is currently reporting that he continues to experience auditory hallucinations from [facility]." He expresses that "they are all trying to screw me over about this carjacking." He states that he has been unable to sleep due to the nonstop auditory hallucinations that he experiences. He otherwise denies any visual hallucinations. The patient reports that he wants to go to court because he does not want to take any more long-acting injectable medication. The patient is otherwise not reporting any suicidal or homicidal ideation, intent, and/or plan. He reports no changes in his appetite. He just reports poor sleep. Patient has been previously diagnosed with schizophrenia and alcohol use disorder. The patient is currently on a regimen of Prolixin Decanoate and oral Prolixin. The patient has had multiple inpatient psychiatric admissions with his last time being in May 2021. He is currently open with [facility]. Patient has no reported previous suicide attempts. Hospital course: Upon admission to the unit patient was initially presenting with significant psychotic symptoms however did test positive for Covid-19 and was subsequently admitted medically. Once the patient was cleared medically and underwent protocol, the patient was subsequently admitted to our psychiatric unit. Due to a history of being on Prolixin with little to no improvement in regards to psychotic symptoms, the patient was started on Clozaril. However with this medication, the patient displayed significant problems with regarding hypotension and had a witnessed fall. The decision was made to taper Clozaril and restart the patient on Prolixin. It is noted that during this hospitalization, the patient despite significant improvement in regards his target symptoms of psychosis. He developed better insight and judgment and was calm and cooperative with staff and peers. He was also evaluated by the medical team for history and physical examination. On the day of discharge, the patient is not reporting any suicidal or homicidal ideation, intention, and/or plan. He is reporting auditory hallucinations that are 1 out of 10 in severity with 10 being very severe. He denies any visual hallucinations. He is not endorsing any paranoid thoughts or delusions today. The patient does have a significant history of heavy alcohol use and was counseled at great length on cutting down his alcohol use. The patient appears to be pre-contemplative at this time in regards to quitting his alcohol. He is not reporting any access to firearms or other weapons and edema denying any suicidal or homicidal ideation, intention, and/or plan. He is tolerating his Prolixin well and is not endorsing any significant side effects. Lisinopril was discontinued during this hospitalization so as to decrease the risk of hypotensive episodes. The patient was encouraged to be adherent with his medications and to follow-up with his outpatient appointments. He is currently under court order. Furthermore, the patient was encouraged to follow-up with his outpatient appointments for his primary care as well. As the patient no longer met criteria for continued inpatient psychiatric auscultation, he was subsequently discharged. Mental status exam: General Appearance: Patient appears to be stated age is alert, pleasant, and cooperative. Patient is in no acute distress and has fair hygiene and grooming Behavior: Patient is calmly seated without any agitated behavior. Speech: Patient's speech is fluent and nonpressured. Mood/Affect: Patient reports their mood is "feeling good", affect is congruent and euthymic and at times bright.. Suicidality/Homicidality: Patient denies having any suicidal or homicidal ideation intent or plan. Perceptions: Patient denies any auditory or visual hallucinations. Though content/process: There is no evidence of any delusional thought content and thought process is linear and goal-directed. Patient was future oriented. Memory and concentration: AOX3, grossly intact for the purposes of this session. Can spell "WORLD" backwards correctly. Judgment and insight: Improved with guarded prognosis Vital Signs Temp 98.1 F 02/26/22 04:40 Pulse 67 02/26/22 04:40 Resp 17 02/26/22 04:40 BP 132/88 02/26/22 04:40 Pulse Ox 98 02/26/22 04:40 FiO2 Laboratory Results WBC 4.2 k/uL (3.8-10.6) 02/20/22 06:29 RBC 4.63 m/uL (4.30-5.90) 02/20/22 06:29 Hgb 15.4 gm/dL (13.0-17.5) 02/20/22 06:29 Hct 42.1 % (39.0-53.0) 02/20/22 06:29 MCV 90.9 fL (80.0-100.0) 02/20/22 06:29 MCH 33.3 pg (25.0-35.0) 02/20/22 06:29 MCHC 36.6 g/dL (31.0-37.0) 02/20/22 06:29 RDW 12.1 % (11.5-15.5) 02/20/22 06:29 Plt Count 170 k/uL (150-450) 02/20/22 06:29 MPV 8.1 02/20/22 06:29 Neutrophils % 86 % 02/20/22 06:29 Lymphocytes % 7 % 02/20/22 06:29 Monocytes % 5 % 02/20/22 06:29 Eosinophils % 0 % 02/20/22 06:29 Basophils % 0 % 02/20/22 06:29 Neutrophils # 3.6 k/uL (1.3-7.7) 02/20/22 06:29 Lymphocytes # 0.3 k/uL (1.0-4.8) L 02/20/22 06:29 Monocytes # 0.2 k/uL (0-1.0) 02/20/22 06:29 Eosinophils # 0.0 k/uL (0-0.7) 02/20/22 06:29 Basophils # 0.0 k/uL (0-0.2) 02/20/22 06:[address] Glu mg/dL 99 02/18/22 08:03 Hemoglobin A1c 5.1 % (0.0-6.0) 02/18/22 08:03 Triglycerides 31.40 mg/dL (0.00-149.00) 02/18/22 08:03 Cholesterol 106.00 mg/dL (0.00-200.00) 02/18/22 08:03 LDL Cholesterol Direct 25.00 mg/dL (0.00-129.00) 02/18/22 08:03 LDL Cholesterol, Calc mg/dL (0.0-131.0) 02/18/22 08:03 VLDL Cholesterol, Calc mg/dL (5.00-40.00) 02/18/22 08:03 HDL Cholesterol 82.50 mg/dL (40.00-60.00) H 02/18/22 08:03 Cholesterol/HDL Ratio 1.28 Ratio 02/18/22 08:03 Allergies Allergy/AdvReac Type Severity Reaction Status Date / Time clozapine AdvReac Diarrhea Verified 02/21/22 12:53 Impression: Schizophrenia Alcohol use disorder Plan: -Continue with discharge today as patient has improved and stabilized psychiat rically and is not currently an imminent threat to himself and/or others. Patient will remain at chronically elevated risk due to the severity of his mental illness and ongoing substance abuse. -Continue medications: Patient will be discharged on Prolixin 2 mg by mouth twice a day for schizophrenia and trazodone 100 mg by mouth at bedtime for insomnia. Lisinopril was discontinued during this hospitalization. Recommend outpatient medical follow-up as well to address his blood pressure issues. -Patient was counseled on the need for medication compliance and appropriate follow-up at mental health and also primary care for medical issues. Patient verbalized understanding and agreed. -Social work to arrange for and conduct family meeting to ensure safety upon discharge and answer any questions/concerns. Social work also to arrange for patients follow up appointments with [facility] for psychiatric care along with follow up with primary care provider. -Patient counseled on abstaining from recreational drugs and marijuana and alcohol. Was informed/educated on the adverse effects on their physical and mental health. Patient verbally agreed and understood. Patient was offered substance abuse treatment however declined at this time. -Patient was instructed to return to the hospital or seek immediate medical care if their psychiatric or medical symptoms do worsen or reoccur. -Psychoeducation and supportive therapy provided to patient. Risks and benefits of pharmacological treatment versus the risks and benefits of nontreatment weight and discussed. Informed consent discussion held. Common side effects of psychotropics discussed such as, but not limited to headache, GI disturbance, sexual dysfunction, movement disorders, sedation, and orthostatic hypotension. Life threatening and blackbox warnings of prescribed medications also discussed. Potential risks of operating a vehicle or heavy machinery discussed with patient at length. Advised on importance of compliance and a reliable and responsible manner. Patient advised to review FDA consumer labeling of all medications prior to taking. Patient verbalized understanding of potential risks, and agrees with current treatment plan. Patient advised to medically contact physician/emergency personnel if any acute changes in condition occur. Patient Condition at Discharge: Stable Plan - Discharge Summary New Discharge Prescriptions: New traZODone HCL [Desyrel] 100 mg PO HS 30 Days tab fluPHENAZine [Prolixin] 2 mg PO BID 30 Days tab Continue Omeprazole 20 mg PO Q48H Metoprolol Tartrate [Lopressor] 25 mg PO TID amLODIPine [Norvasc] 10 mg PO DAILY tab Cholecalciferol (Vitamin D3) [Vitamin D3 (125 MCG = 5,000 IU)] 125 mcg PO Q48H Aspirin 81 mg PO DAILY 30 Days tab Discontinued Acetaminophen Tab [Tylenol] 650 mg PO TID PRN PRN Reason: Fever And/ Or Pain fluPHENAZine decanoate [Prolixin Decanoate] 50 mg IM Q28D lisinopriL [Zestril] 20 mg PO HS tab Discharge Medication List Omeprazole 20 mg PO Q48H 05/14/18 [History] Cholecalciferol (Vitamin D3) [Vitamin D3 (125 MCG = 5,000 IU)] 125 mcg PO Q48H 01/04/21 [History] Aspirin 81 mg PO DAILY 30 Days tab 01/29/21 [Rx] Metoprolol Tartrate [Lopressor] 25 mg PO TID 08/20/21 [History] amLODIPine [Norvasc] 10 mg PO DAILY tab 02/17/22 [Rx] fluPHENAZine [Prolixin] 2 mg PO BID 30 Days tab 02/26/22 [Rx] traZODone HCL [Desyrel] 100 mg PO HS 30 Days tab 02/26/22 [Rx] Follow up Appointment(s)/Referral(s): [facility] [Outside] - 02/27/22 3:30 pm (02-27-22 at 3:[address] Jacinto ACT team today or tomorrow. ) [facility] [Primary Care Provider] - 1 Week Patient Instructions/Handouts: Schizophrenia (DC), Psychotic Disorder (DC) Activity/Diet/Wound Care/Special Instructions: Avoid the use of street drugs and alcohol. Take all prescriptions as prescribed. When you are in need of refills on your medications, please contact your medical provider and/or outpatient psychiatrist to have this done. Please go to scheduled outpatient appointment for aftercare treatment. If symptoms return or become worse, call the crisis line at and/or go to the nearest emergency room for evaluation. Discharge Disposition: HOME SELF-CARE
== END 2022-02-26 13:22 | disposition home or self-care (01) | DRG 885 ==
LOC: 3MHU 14:43
PROVIDERS: ADMIT Psychiatry & Neurology Psychiatry; ATTEND Psychiatry & Neurology Psychiatry
DX: F20.9 Schizophrenia, unspecified (principal); F32.A Depression, unspecified; F41.9 Anxiety disorder, unspecified; I10 Essential (primary) hypertension; Z86.16 Personal history of COVID-19; W19.XXXA Unspecified fall, initial encounter; Z87.19 Personal history of other diseases of the digestive system; Z91.199 Patient's noncompliance with other medical treatment and regimen due to unspecified reason
CPT/HCPCS: 80061; 83036; 83721; 85025

== ENCOUNTER 2022-08-03 02:59 | Inpatient (IN) | payer MEDICARE, OTHER ==
[2022-08-03] MEDS ORDERED: PANTOPRAZOLE 40 MG/10 ML VIAL IVP STA (03:06)
[2022-08-03] MEDS ORDERED: SODIUM CHLORIDE 0.9% 1,000 ML IV ONE (03:06)
[2022-08-03] MEDS ORDERED: ONDANSETRON 4 MG/2 ML VIAL IVP STA (03:10)
[2022-08-03 03:35] LABS: Basophils % (A) 0 %; Eosinophils # (A) 0.1 k/uL (0-0.7); Eosinophils % (A) 1 %; HCT 39.5 % (39.0-53.0); HGB 14.7 gm/dL (13.0-17.5); Hyperchromasia Marked; Lymphocytes # (A) 1.1 k/uL (1.0-4.8); Lymphocytes % (A) 13 %; MCH 33.1 pg (25.0-35.0); MCHC 37.2 g/dL (31.0-37.0); Mean Platelet Volume 7.5; Monocytes # (A) 0.8 k/uL (0-1.0); Monocytes % (A) 10 %; Neutrophils % (A) 72 %; Platelet Count 231 k/uL (150-450); RBC 4.43 m/uL (4.30-5.90); RDW 12.1 % (11.5-15.5); WBC 8.4 k/uL (3.8-10.6)
--- NOTE | 2022-08-03 03:58 | ED ---
General Adult HPI - General Chief complaint: Chest Pain Stated complaint: Chest Pain Time Seen by Provider: 08/03/22 03:05 Source: patient, RN notes reviewed, old records reviewed Mode of arrival: EMS Limitations: no limitations - History of Present Illness Initial comments: 56-year-old male who presents for evaluation of epigastric pain and lower chest pain. Burning in nature. This has been associated with multiple episodes of vomiting. His been present for the past several days. He was seen by here urgent care or his primary care physician and they recommended he seek medical care at the emergency department. This was yesterday and the patient states he felt okay and went home. He does have history of daily alcohol abuse. States he vomited 6 times prior to arrival and has been vomiting several times daily for the past 5 days. - Related Data Home Medications Medication Instructions Recorded Confirmed Omeprazole 20 mg PO Q48H 05/14/18 02/17/22 Cholecalciferol (Vitamin D3) 125 mcg PO Q48H 01/04/21 02/17/22 [Vitamin D3 (125 MCG = 5,000 IU)] Metoprolol Tartrate [Lopressor] 25 mg PO TID 08/20/21 02/17/22 Previous Rx's Medication Instructions Recorded Aspirin 81 mg PO DAILY 30 Days tab 01/29/21 amLODIPine [Norvasc] 10 mg PO DAILY tab 02/17/22 fluPHENAZine [Prolixin] 2 mg PO BID 30 Days tab 02/26/22 traZODone HCL [Desyrel] 100 mg PO HS 30 Days tab 02/26/22 Allergies Allergy/AdvReac Type Severity Reaction Status Date / Time clozapine AdvReac Diarrhea Verified 02/21/22 12:53 Review of Systems ROS Statement: Those systems with pertinent positive or pertinent negative responses have been documented in the HPI. ROS Other: All systems not noted in ROS Statement are negative. Past Medical History Past Medical History: GERD/Reflux, Hypertension, Vascular Disorder Additional Past Medical History / Comment(s): ETOH abuse, alcohol withdrawl with tremens, diverticular disease, benign colon polyp, varicose veins. History of Any Multi-Drug Resistant Organisms: None Reported Past Surgical History: No Surgical Hx Reported Additional Past Surgical History / Comment(s): Teeth extractions, colonoscopies. Past Anesthesia/Blood Transfusion Reactions: No Reported Reaction Additional Past Anesthesia/Blood Transfusion Reaction / Comment(s): Never had Past Psychological History: Anxiety, Depression, Schizophrenia Smoking Status: Never smoker Past Alcohol Use History: Heavy Past Drug Use History: None Reported - Past Family History Father Family Medical History: Myocardial Infarction ([place]) Additional Family Medical History / Comment(s): AT AGE 58 FROM [place] Mother Family Medical History: Deep Vein Thrombosis (DVT), Hypertension Additional Family Medical History / Comment(s): PRIMARY PULMONARY HYPERTENSION General Exam Limitations: no limitations General appearance: alert, in no apparent distress, appears intoxicated Head exam: Present: atraumatic, normocephalic Eye exam: Present: normal appearance, PERRL ENT exam: Present: mucous membranes dry Neck exam: Present: normal inspection. Absent: tenderness, meningismus Respiratory exam: Present: normal lung sounds bilaterally. Absent: respiratory distress, wheezes Cardiovascular Exam: Present: normal rhythm, tachycardia GI/Abdominal exam: Present: soft. Absent: distended, tenderness, guarding, rebound Extremities exam: Present: normal inspection, full ROM Neurological exam: Present: alert, oriented X3, CN II-XII intact. Absent: motor sensory deficit Psychiatric exam: Present: normal affect, normal mood Skin exam: Present: warm, dry, intact. Absent: cyanosis, diaphoretic Course Vital Signs 08/03/22 08/03/22 08/03/22 03:08 03:15 03:30 Temperature 98.1 F Pulse Rate 112 H 105 H 103 H Respiratory 18 19 Rate Blood Pressure 102/74 108/86 108/86 O2 Sat by Pulse 98 96 97 Oximetry 08/03/22 08/03/22 08/03/22 04:00 04:30 05:00 Temperature Pulse Rate 100 102 H 99 Respiratory 20 13 Rate Blood Pressure 117/84 126/91 132/86 O2 Sat by Pulse 97 96 94 L Oximetry 08/03/22 05:30 Temperature Pulse Rate 101 H Respiratory 19 Rate Blood Pressure 123/86 O2 Sat by Pulse 94 L Oximetry EKG Findings - EKG Comments: EKG Findings:: EKG: Sinus tachycardia rate of 110, TN interval 136, QRS duration 82, QTC [address] segment elevation. Medical Decision Making - Medical Decision Making Was pt. sent in by a medical professional or institution (, PA, RAIL CAR DRIVER, urgent care, hospital, or detention...) When possible be specific @ -[No] Did you speak to anyone other than the patient for history (EMS, parent, family, police, friend...)? What history was obtained from this source @ -[No] Did you review nursing and triage notes (agree or disagree)? Why? @ -[I reviewed and agree with nursing and triage notes] Were old charts reviewed (outside hosp., previous admission, EMS record, old EKG, old radiological studies, urgent care reports/EKG's, detention records)? Report findings @ -[No old charts were reviewed] Differential Diagnosis (chest pain, altered mental status, abdominal pain women, abdominal pain men, vaginal bleeding, weakness, fever, dyspnea, syncope, headache, dizziness, GI bleed, back pain, seizure, CVA, palpatations, mental health, musculoskeletal)? @ -[Differential Chest Pain: Stable Angina, Unstable Angina, STEMI, NSTEMI Aortic Dissection, Pneumothorax, M usculoskeletal, Esophageal Spasm GERD, Cholecystitis, Pancreatitis, Zoster, this is not meant to be an all-inclusive list. ] EKG interpreted by me (3pts min.). @ -[As above] X-rays interpreted by me (1pt min.). @ -[Chest x-ray clear reviewed by myself] CT interpreted by me (1pt min.). @ -[None done] U/S interpreted by me (1pt. min.). @ -[None done] What testing was considered but not performed or refused? (CT, X-rays, U/S, labs)? Why? @ -[None] What meds were considered but not given or refused? Why? @ -[None] Did you discuss the management of the patient with other professionals (professionals i.e. , PA, RAIL CAR DRIVER, lab, RT, psych nurse, perinatal social worker, supervisor metal placing, teacher, fire management officer, renal case manager)? Give summary @ -[No] Was smoking cessation discussed for >3mins.? @ -[No] Was critical care preformed (if so, how long)? @ -[No] Were there social determinants of health that impacted care today? How? (Homelessness, low income, unemployed, alcoholism, drug addiction, transportation, low edu. Level, literacy, decrease access to med. care, fci, rehab)? @ -[No] Was there de-escalation of care discussed even if they declined (Discuss DNR or withdrawal of care, Hospice)? DNR status @ -[No] What co-morbidities impacted this encounter? (DM, HTN, Smoking, COPD, CAD, Cancer, CVA, ARF, Chemo, Hep., AIDS, mental health diagnosis, sleep apnea, morbid obesity)? @ -[None] Was patient admitted / discharged? Hospital course, mention meds given and route, prescriptions, significant lab abnormalities, going to OR and other pertinent info. @ -[56-year-old male with 5 days of epigastric and lower chest pain. Burning in nature. Patient does not have radiating symptoms. His EKG is sinus tachycardia without ST segment elevation. Chest x-ray is clear. Troponin is ne gative. He has some mild hyponatremia which is stable for this patient. He does remain symptomatic on the emergency department. Suspect this is likely related to gastritis with persistent nausea and vomiting but we will trend cardiac enzymes. He will be placed in observation for symptomatic control.] Undiagnosed new problem with uncertain prognosis? @ -[No] Drug Therapy requiring intensive monitoring for toxicity (Heparin, Nitro, Insul in, Cardizem)? @ -[No] Were any procedures done? @ -[No] Diagnosis/symptom? @ -[Chest pain, intractable vomiting] A - Lab Data Result diagrams: 08/03/22 03:13 08/03/22 03:13 Lab Results 08/03/22 08/03/22 08/03/22 Range/Units 03:13 03:13 03:13 WBC 8.4 (3.8-10.6) k/uL RBC 4.43 (4.30-5.90) m/uL Hgb 14.7 (13.0-17.5) gm/dL Hct 39.5 (39.0-53.0) % MCV 89.0 (80.0-100.0) fL MCH 33.1 (25.0-35.0) pg MCHC 37.2 H (31.0-37.0) g/dL RDW 12.1 (11.5-15.5) % Plt Count 231 (150-450) k/uL MPV 7.5 Neutrophils % 72 % Lymphocytes % 13 % Monocytes % 10 % Eosinophils % 1 % Basophils % 0 % Neutrophils # 6.0 (1.3-7.7) k/uL Lymphocytes # 1.1 (1.0-4.8) k/uL Monocytes # 0.8 (0-1.0) k/uL Eosinophils # 0.1 (0-0.7) k/uL Basophils # 0.0 (0-0.2) k/uL Hyperchromasia Marked PT 10.0 (9.0-12.0) sec INR 0.9 (<1.2) APTT 24.7 (22.0-30.0) sec Sodium 127 L (137-145) mmol/L Potassium 3.5 (3.5-5.1) mmol/L Chloride 89 L (98-107) mmol/L Carbon Dioxide 25 (22-30) mmol/L Anion Gap 13 mmol/L BUN 4 L (9-20) mg/dL Creatinine 0.52 L (0.66-1.25) mg/dL Est GFR (CKD-EPI)AfAm >90 (>60 ml/min/1.73 sqM) Est GFR (CKD-EPI)NonAf >90 (>60 ml/min/1.73 sqM) Glucose 91 (74-99) mg/dL Calcium 9.3 (8.4-10.2) mg/dL Magnesium 1.7 (1.6-2.3) mg/dL Total Bilirubin 2.6 H (0.2-1.3) mg/dL AST 31 (17-59) U/L ALT 22 (4-49) U/L Alkaline Phosphatase 55 (38-126) U/L Troponin I (0.000-0.034) ng/mL Total Protein 7.5 (6.3-8.2) g/dL Albumin 4.7 (3.5-5.0) g/dL Lipase 76 (23-300) U/L Serum Alcohol <10 mg/dL 08/03/22 Range/Units 03:13 WBC (3.8-10.6) k/uL RBC (4.30-5.90) m/uL Hgb (13.0-17.5) gm/dL Hct (39.0-53.0) % MCV (80.0-100.0) fL MCH (25.0-35.0) pg MCHC (31.0-37.0) g/dL RDW (11.5-15.5) % Plt Count (150-450) k/uL MPV Neutrophils % % Lymphocytes % % Monocytes % % Eosinophils % % Basophils % % Neutrophils # (1.3-7.7) k/uL Lymphocytes # (1.0-4.8) k/uL Monocytes # (0-1.0) k/uL Eosinophils # (0-0.7) k/uL Basophils # (0-0.2) k/uL Hyperchromasia PT (9.0-12.0) sec INR (<1.2) APTT (22.0-30.0) sec Sodium (137-145) mmol/L Potassium (3.5-5.1) mmol/L Chloride (98-107) mmol/L Carbon Dioxide (22-30) mmol/L Anion Gap mmol/L BUN (9-20) mg/dL Creatinine (0.66-1.25) mg/dL Est GFR (CKD-EPI)AfAm (>60 ml/min/1.73 sqM) Est GFR (CKD-EPI)NonAf (>60 ml/min/1.73 sqM) Glucose (74-99) mg/dL Calcium (8.4-10.2) mg/dL Magnesium (1.6-2.3) mg/dL Total Bilirubin (0.2-1.3) mg/dL AST (17-59) U/L ALT (4-49) U/L Alkaline Phosphatase (38-126) U/L Troponin I <0.012 (0.000-0.034) ng/mL Total Protein (6.3-8.2) g/dL Albumin (3.5-5.0) g/dL Lipase (23-300) U/L Serum Alcohol mg/dL Disposition Clinical Impression: Gastroenteritis, Hyponatremia, Alcohol use disorder, Chest pain Disposition: ADMITTED IP TO [facility] Condition: Stable Is patient prescribed a controlled substance at d/c from ED?: No Referrals: [facility] [Primary Care Provider] - 1-2 days Time of Disposition: 06:15
[2022-08-03 04:00] LABS: ALT 22 U/L (4-49); AST 31 U/L (17-59); African American GFR (CKD) >90 (>60 ml/min/1.73 sqM); Albumin 4.7 g/dL (3.5-5.0); Alcohol <10 mg/dL; Alkaline Phosphatase 55 U/L (38-126); Anion Gap 13 mmol/L; Blood Urea Nitrogen 4 mg/dL (9-20); Calcium 9.3 mg/dL (8.4-10.2); Carbon Dioxide 25 mmol/L (22-30); Chloride 89 mmol/L (98-107); Glucose 91 mg/dL (74-99); Lipase 76 U/L (23-300); Magnesium 1.7 mg/dL (1.6-2.3); Non-African American GFR(CKD) >90 (>60 ml/min/1.73 sqM); Potassium 3.5 mmol/L (3.5-5.1); Sodium 127 mmol/L (137-145); Total Bilirubin 2.6 mg/dL (0.2-1.3); Total Protein 7.5 g/dL (6.3-8.2)
[2022-08-03 04:03] LABS: INR 0.9 (<1.2); Partial Thromboplastin Time 24.7 sec (22.0-30.0)
--- NOTE | 2022-08-03 05:45 | XR ---
EXAMINATION TYPE: XR chest 2V DATE OF EXAM: 08/03/2022 COMPARISON: Chest x-ray November 20, 2019 HISTORY: Chest pain. TECHNIQUE: Frontal and lateral views of the chest are obtained. FINDINGS: There is no suspicious focal air space opacity, pleural effusion, or pneumothorax seen. T he cardiac silhouette size is stable and within normal limits. The osseous structures are intact. O verlying EKG leads. IMPRESSION: No acute cardiopulmonary process.
[2022-08-03] MEDS ORDERED: MAG HYDROX/AL HYDROX/SIMETH 30 ML, HYOSCYAMINE ELIXIR 10 ML, LIDOCAINE VISCOUS 2% 10 ML PO STA ×3 (06:11)
[2022-08-03] MEDS ORDERED: ONDANSETRON 4 MG/2 ML VIAL IVP PRN (06:12)
[2022-08-03] MEDS ORDERED: NALOXONE 0.4 MG/ML 1 ML VIAL IV PRN (06:12)
[2022-08-03] MEDS: SODIUM CHLORIDE 0.9% 1,000 ML IV SCH ×2 (06:54→21:06)
[2022-08-03] MEDS: PANTOPRAZOLE 40 MG/10 ML VIAL IV SCH (09:29)
[2022-08-03] MEDS ORDERED: diazePAM 5 MG TAB PO STA (14:35)
[2022-08-03] MEDS ORDERED: MORPHINE SULFATE 2 MG/ML SYRINGE IVP PRN (14:42)
--- NOTE | 2022-08-03 14:46 | P.HPIM ---
History of Present Illness This is a pleasant 56 years old male with multiple medical problems including schizophrenia GERD/Reflux, Hypertension, , ETOH abuse, alcohol withdrawl with tremens, diverticular disease, benign colon polyp, varicose veins. Anxiety, Depression, Schizophrenia Patient presents because of recurrent vomiting for the last 6 days he has been vomiting daily, yesterday he vomited 6 times, he could not eat only very little, however he was still able to drink liquids. This is associated with lower chest pain, he describes chest pain as burning sensation in the lower chest radiating all over to the left side associated with epigastric pain and tenderness and rated as 10/10 in severity although the patient was lying, intubated and does not look in distress. He states that this pain has been going on for about 2 weeks. He denies any dyspnea or coughing, also has been complaining of from mild periumbilical pain but is more in the epigastric area, he didn't have bowel movement for a few days. No urinary complaints. No headache dizziness weakness or numbness. He denies smoking or illicit tracts but he drinks alcohol daily, gait drinks 6 cans of 32 months of beer and he had 3 shots of liquor with each beer (as per bedside nurse also), he says that his last drink was 6 PM yesterday. He denies much grieving for alcohol now but he looks anxious and with slight tremor. He states that he never had a scope before. He follow-up with the [facility] Here versus since 1994 He denies depressive signs and symptoms, he denies suicidal symptoms, he denies homicidal symptoms but he has thoughts to hurt other people (he did not specify) through the discharge, he wants to take them to Court to put them in custodial Patient is mildly tachycardic and febrile Has unremarkable CBC, INR, BMP and liver enzymes. Sodium low 127 Troponin less than 0.0123. Serum alcohol less than 10 chest x-ray: No acute process EKG showing sinus tachycardia at [address] T changes Review of Systems Review of systems CONSTITUTIONAL: No fever, no malaise, no fatigue. HEENT: No recent visual problems or hearing problems. Denied any sore throat. CARDIOVASCULAR: No orthopnea, PND, no palpitations, no syncope. PULMONARY: No shortness of breath, no cough, no hemoptysis. GASTROINTESTINAL: No diarrhea. Normoactive bowel sounds. NEUROLOGICAL: No headaches, no weakness, no numbness. HEMATOLOGICAL: Denies any bleeding or petechiae. GENITOURINARY: Denies any burning micturition, frequency, or urgency. MUSCULOSKELETAL/RHEUMATOLOGICAL: Denies any joint pain, swelling, or any muscle pain. ENDOCRINE: Denies any polyuria or polydipsia. Past Medical History Past Medical History: GERD/Reflux, Hypertension, Vascular Disorder Additional Past Medical History / Comment(s): ETOH abuse, alcohol withdrawl with tremens, diverticular disease, benign colon polyp, varicose veins. History of Any Multi-Drug Resistant Organisms: None Reported Past Surgical History: No Surgical Hx Reported Additional Past Surgical History / Comment(s): Teeth extractions, colonoscopies. Past Anesthesia/Blood Transfusion Reactions: No Reported Reaction Additional Past Anesthesia/Blood Transfusion Reaction / Comment(s): Never had Past Psychological History: Anxiety, Depression, Schizophrenia Additional Psychological History / Comment(s): Pt resides with his brother, Bert Askew. Pt does not drive, his brother drives him or he takes the bus. He goes to [facility]. He manages his own medications. Smoking Status: Never smoker Past Alcohol Use History: Heavy Additional Past Alcohol Use History / Comment(s): Pt has ETOH abuse Past Drug Use History: None Reported - Past Family History Father Family Medical History: Myocardial Infarction ([place]) Additional Family Medical History / Comment(s): AT AGE 58 FROM [place] Mother Family Medical History: Deep Vein Thrombosis (DVT), Hypertension Additional Family Medical History / Comment(s): PRIMARY PULMONARY HYPERTENSION Medications and Allergies Home Medications Medication Instructions Recorded Confirmed Type Aspirin 81 mg PO DAILY 30 Days tab 01/29/21 08/03/22 Rx Sodium Chloride Tab 1 gm PO Q48H 08/03/22 08/03/22 History atenoloL [Tenormin] 50 mg PO DAILY 08/03/22 08/03/22 History fluPHENAZine decanoate [Prolixin 50 mg IM Q28D 08/03/22 08/03/22 History Decanoate] Allergies Allergy/AdvReac Type Severity Reaction Status Date / Time clozapine AdvReac Diarrhea Verified 08/03/22 12:35 Physical Exam Vitals: Vital Signs Temp Pulse Pulse Resp BP BP Pulse Ox 08/03/22 13:24 98.3 F 102 H 16 128/83 98 08/03/22 11:22 98.5 F 102 H 16 123/78 98 08/03/22 10:50 100 18 107/77 97 08/03/22 09:00 110 H 18 106/73 96 08/03/22 07:00 98 20 124/84 95 08/03/22 05:30 101 H 19 123/86 94 L 08/03/22 05:00 99 13 132/86 94 L 08/03/22 04:30 102 H 126/91 96 08/03/22 04:00 100 20 117/84 97 08/03/22 03:30 103 H 19 108/86 97 08/03/22 03:15 98.1 F 105 H 18 108/86 96 08/03/22 03:08 112 H 102/74 98 Intake and Output 08/02/22 08/03/22 08/03/22 22:59 06:59 14:59 Other: # Voids 1 Weight 83.915 kg 83.915 kg GENERAL: The patient is alert and oriented x3, not in any acute distress. Well developed, well nourished. HEENT: Pupils are round and equally reacting to light. EOMI. No scleral icterus. No conjunctival pallor. Normocephalic, atraumatic. No pharyngeal erythema. No thyromegaly. CARDIOVASCULAR: S1 and S2 present. No murmurs, rubs, or gallops. PULMONARY: Chest is clear to auscultation, no wheezing or crackles. -ABDOMEN: Soft, epigastric tenderness with no guarding or rebound tenderness, nondistended, normoactive bowel sounds. No palpable organomegaly. MUSCULOSKELETAL: No joint swelling or deformity. EXTREMITIES: No cyanosis, clubbing, or pedal edema. NEUROLOGICAL: Gross neurological examination did not reveal any focal deficits. SKIN: No rashes. no petechiae. Results CBC & Chem 7: 08/03/22 03:13 08/03/22 03:13 Labs: Abnormal Lab Results - Last 24 Hours (Table) 08/03/22 08/03/22 Range/Units 03:13 03:13 MCHC 37.2 H (31.0-37.0) g/dL Sodium 127 L (137-145) mmol/L Chloride 89 L (98-107) mmol/L BUN 4 L (9-20) mg/dL Creatinine 0.52 L (0.66-1.25) mg/dL Total Bilirubin 2.6 H (0.2-1.3) mg/dL Thrombosis Risk Factor Assmnt - Choose All That Apply Each Factor Represents 1 point: Age 41-60 years Thrombosis Risk Factor Assessment Total Risk Factor Score: 1 Thrombosis Risk Factor Assessment Level: Low Risk Assessment and Plan Assessment: -Intractable nausea vomiting, associated with epigastric pain and tenderness and burning chest pain, rule out GI source, esophagitis versus peptic ulcer disease. Versus gallbladder disease -Lower chest pain, felt cardiac causes to be less likely but not entirely excluded -Mild hypnnatremia, mostly hypovolemic associated with dehydration -Hypertension -History of GERD -History of alcohol withdrawal -Diverticular disease -History of anxiety, depression and schizophrenia Plan: Continue with Protonix twice a day Continue gentle hydration Continue with liquid diet Pain medication Surgical team consulted psychiatry team consult Cardiology consult CIWA protocol and thiamine Labs and medication were reviewed.. Continue same treatment. Continue with symptomatic treatment. Resume home medication. Monitor labs and vitals. DVT and GI prophylaxis. Further recommendations as per clinical course of the patient DVT prophylaxis: Subcutaneous heparin GI Prophylaxis: Ppi Prognosis is guarded
[2022-08-03] MEDS: THIAMINE 100 MG/ML 2 ML VIAL IVP SCH (16:38)
[2022-08-03] MEDS: HEPARIN SODIUM,PORCINE/PF 5,000 UNIT/0.5 ML SYRINGE SQ SCH (20:09)
[2022-08-04 07:00] LABS: Basophils % (A) 1 %; Eosinophils # (A) 0.1 k/uL (0-0.7); Eosinophils % (A) 1 %; HCT 36.7 % (39.0-53.0); HGB 13.6 gm/dL (13.0-17.5); Hyperchromasia Slight; Lymphocytes # (A) 0.7 k/uL (1.0-4.8); Lymphocytes % (A) 10 %; MCH 34.3 pg (25.0-35.0); MCHC 37.1 g/dL (31.0-37.0); MCV 92.4 fL (80.0-100.0); Mean Platelet Volume 7.8; Monocytes # (A) 0.5 k/uL (0-1.0); Monocytes % (A) 7 %; Neutrophils # (A) 5.3 k/uL (1.3-7.7); Neutrophils % (A) 77 %; Platelet Count 166 k/uL (150-450); RBC 3.98 m/uL (4.30-5.90); RDW 13.2 % (11.5-15.5); WBC 6.9 k/uL (3.8-10.6)
[2022-08-04 07:08] LABS: African American GFR (CKD) >90 (>60 ml/min/1.73 sqM); Anion Gap 8 mmol/L; Blood Urea Nitrogen 4 mg/dL (9-20); Calcium 8.7 mg/dL (8.4-10.2); Carbon Dioxide 26 mmol/L (22-30); Chloride 100 mmol/L (98-107); Glucose 101 mg/dL (74-99); Non-African American GFR(CKD) >90 (>60 ml/min/1.73 sqM); Potassium 3.7 mmol/L (3.5-5.1); Sodium 134 mmol/L (137-145)
[2022-08-04] MEDS: PANTOPRAZOLE 40 MG/10 ML VIAL IV SCH (09:22)
[2022-08-04] MEDS: THIAMINE 100 MG/ML 2 ML VIAL IVP SCH (09:22)
[2022-08-04] MEDS: ASPIRIN 81 MG PO SCH (09:22)
[2022-08-04] MEDS: HEPARIN SODIUM,PORCINE/PF 5,000 UNIT/0.5 ML SYRINGE SQ SCH ×2 (09:22→20:11)
[2022-08-04] MEDS: atenoloL 50 MG TAB PO SCH (09:22)
[2022-08-04] MEDS: SODIUM CHLORIDE 0.9% 1,000 ML IV SCH ×2 (09:22→21:37)
--- NOTE | 2022-08-04 11:22 | P.GSCN ---
History of Present Illness Consult date: 08/04/22 Reason for Consult: Epigastric pain, nausea History of present illness: This a 56 male was admitted to the emergency room complaints of epigastric pain nausea. Patient states pain is mainly in the epigastric area. He denies a history of peptic ulcer disease. Past Medical History Past Medical History: GERD/Reflux, Hypertension, Vascular Disorder Additional Past Medical History / Comment(s): ETOH abuse, alcohol withdrawl with tremens, diverticular disease, benign colon polyp, varicose veins. History of Any Multi-Drug Resistant Organisms: None Reported Past Surgical History: No Surgical Hx Reported Additional Past Surgical History / Comment(s): Teeth extractions, colonoscopies. Past Anesthesia/Blood Transfusion Reactions: No Reported Reaction Additional Past Anesthesia/Blood Transfusion Reaction / Comm: Never had Past Psychological History: Anxiety, Depression, Schizophrenia Additional Psychological History / Comment(s): Pt resides with his brother, Bert Askew. Pt does not drive, his brother drives him or he takes the bus. He goes to [facility]. He manages his own medications. Smoking Status: Never smoker Past Alcohol Use History: Heavy Additional Past Alcohol Use History / Comment(s): Pt has ETOH abuse Past Drug Use History: None Reported - Past Family History Father Family Medical History: Myocardial Infarction ([place]) Additional Family Medical History / Comment(s): AT AGE 58 FROM [place] Mother Family Medical History: Deep Vein Thrombosis (DVT), Hypertension Additional Family Medical History / Comment(s): PRIMARY PULMONARY HYPERTENSION Medications and Allergies Home Medications Medication Instructions Recorded Confirmed Type Aspirin 81 mg PO DAILY 30 Days tab 01/29/21 08/03/22 Rx Sodium Chloride Tab 1 gm PO Q48H 08/03/22 08/03/22 History atenoloL [Tenormin] 50 mg PO DAILY 08/03/22 08/03/22 History fluPHENAZine decanoate [Prolixin 50 mg IM Q28D 08/03/22 08/03/22 History Decanoate] Allergies Allergy/AdvReac Type Severity Reaction Status Date / Time clozapine AdvReac Diarrhea Verified 08/03/22 12:35 Surgical - Exam Vital Signs Pulse BP Pulse Ox 112 H 102/74 98 08/03/22 03:08 08/03/22 03:08 08/03/22 03:08 - General well developed, well nourished, moderate distress - Eyes PERRL - ENT normal pinna - Neck no masses - Respiratory normal expansion - Cardiovascular Rhythm: regular - Abdomen Mild epigastric pain Abdomen: soft Results - Labs 08/04/22 06:35 08/04/22 06:35 Abnormal Lab Results - Last 24 Hours (Table) 08/04/22 08/04/22 Range/Units 06:35 06:35 RBC 3.98 L (4.30-5.90) m/uL Hct 36.7 L (39.0-53.0) % MCHC 37.1 H (31.0-37.0) g/dL Lymphocytes # 0.7 L (1.0-4.8) k/uL Sodium 134 L (137-145) mmol/L BUN 4 L (9-20) mg/dL Glucose 101 H (74-99) mg/dL Diabetes panel 08/04/22 Range/Units 06:35 Sodium 134 L (137-145) mmol/L Potassium 3.7 (3.5-5.1) mmol/L Chloride 100 (98-107) mmol/L Carbon Dioxide 26 (22-30) mmol/L BUN 4 L (9-20) mg/dL Creatinine 0.69 (0.66-1.25) mg/dL Glucose 101 H (74-99) mg/dL Calcium 8.7 (8.4-10.2) mg/dL Calcium panel 08/04/22 Range/Units 06:35 Calcium 8.7 (8.4-10.2) mg/dL Pituitary panel 08/04/22 Range/Units 06:35 Sodium 134 L (137-145) mmol/L Potassium 3.7 (3.5-5.1) mmol/L Chloride 100 (98-107) mmol/L Carbon Dioxide 26 (22-30) mmol/L BUN 4 L (9-20) mg/dL Creatinine 0.69 (0.66-1.25) mg/dL Glucose 101 H (74-99) mg/dL Calcium 8.7 (8.4-10.2) mg/dL Adrenal panel 08/04/22 Range/Units 06:35 Sodium 134 L (137-145) mmol/L Potassium 3.7 (3.5-5.1) mmol/L Chloride 100 (98-107) mmol/L Carbon Dioxide 26 (22-30) mmol/L BUN 4 L (9-20) mg/dL Creatinine 0.69 (0.66-1.25) mg/dL Glucose 101 H (74-99) mg/dL Calcium 8.7 (8.4-10.2) mg/dL Assessment and Plan Assessment: Epigastric pain, nausea. Patient will be scheduled for EGD exam.
--- NOTE | 2022-08-04 12:57 | P.CRDCN ---
History of Present Illness Consult date: 08/04/22 Consult reason: chest pain History of present illness: The patient is a 56-year-old male who follows in the office with Dr. FRANCIS Lomeli. He initially presented to the emergency room with intractable nausea and vomiting. He reported to ER staff that he had been experiencing epigastric discomfort which causes a burning sensation up to his throat. He states this has progressively gotten worse as he is under increased stress. He states it has been several years since the patient has undergone cardiac testing in the office. He does follow regularly with his primary care team, as he has an extensive psychiatric history. DIAGNOSTICS: EKG shows sinus tachycardia with hypertensive heart disease Chest x-ray shows no acute cardiopulmonary process Lab data: WBC 6.9, hemoglobin 13.6, hematocrit 36.7, platelet 166, sodium 134, potassium 3.7, BUN 4, creatinine 0.69, troponin negative 3, AST 31, ALT 22, lipase 76, serum alcohol less than 10 Vital signs blood pressure 122/82, pulse 77, respiratory rate 16, temp 98.4F, SpO2 96% on room air REVIEW OF SYSTEMS: No fever or chills. No cough or expectoration. No diaphoresis. Patient denies headache, dizziness, blurred vision, double vision. No hematochezia. No hematemesis. Denies any black stools or blood in his stools. Denies dysuria or hematuria. No muscle weakness or numbness. Positive for nausea, weakness, and fatigue. No current vomiting. Mild epigastric discomfort, no current sharp pain. PHYSICAL EXAMINATION: This is a 56-year-old male in no apparent distress at the time of my examination. HEENT: Head is atraumatic, normocephalic. Pupils are equal, round. Sclerae anicteric. Conjunctivae are clear. Mucous membranes of the mouth are moist. Neck is supple. There is no jugular venous distention. No carotid bruit is heard. CHEST EXAMINATION: Lungs are clear to auscultation. No chest wall tenderness is noted on palpation or with deep breathing. HEART EXAMINATION: Heart regular rate and rhythm. S1, S2 heard. No murmurs, gallops or rub. ABDOMEN: Soft, nontender. Bowel sounds are heard. No organomegaly noted. EXTREMITIES: 2+ peripheral pulses with no evidence of peripheral edema and no calf tenderness noted. NEUROLOGIC EXAMINATION: Patient is awake, alert and oriented x3. FINAL ASSESSMENT AND PLAN: Intractable nausea and vomiting Epigastric discomfort, ACS workup unremarkable History of hypertension History of hyperlipidemia History of psychiatric illness History of EtOH abuse PLAN: Resume home cardiac medications At statin current regimen Dobutamine stress echocardiogram pending Further recommendations based on clinical course I am dictating on behalf of Dr Brody Heredia's history/physical and assessment/plan. Past Medical History Past Medical History: GERD/Reflux, Hypertension, Vascular Disorder Additional Past Medical History / Comment(s): ETOH abuse, alcohol withdrawl with tremens, diverticular disease, benign colon polyp, varicose veins. History of Any Multi-Drug Resistant Organisms: None Reported Past Surgical History: No Surgical Hx Reported Additional Past Surgical History / Comment(s): Teeth extractions, colonoscopies. Past Anesthesia/Blood Transfusion Reactions: No Reported Reaction Additional Past Anesthesia/Blood Transfusion Reaction / Comment(s): Never had Past Psychological History: Anxiety, Depression, Schizophrenia Additional Psychological History / Comment(s): Pt resides with his brother, Bert Askew. Pt does not drive, his brother drives him or he takes the bus. He goes to [facility]. He manages his own medications. Smoking Status: Never smoker Past Alcohol Use History: Heavy Additional Past Alcohol Use History / Comment(s): Pt has ETOH abuse Past Drug Use History: None Reported - Past Family History Father Family Medical History: Myocardial Infarction ([place]) Additional Family Medical History / Comment(s): AT AGE 58 FROM [place] Mother Family Medical History: Deep Vein Thrombosis (DVT), Hypertension Additional Family Medical History / Comment(s): PRIMARY PULMONARY HYPERTENSION Medications and Allergies Home Medications Medication Instructions Recorded Confirmed Type Aspirin 81 mg PO DAILY 30 Days tab 01/29/21 08/03/22 Rx Sodium Chloride Tab 1 gm PO Q48H 08/03/22 08/03/22 History atenoloL [Tenormin] 50 mg PO DAILY 08/03/22 08/03/22 History fluPHENAZine decanoate [Prolixin 50 mg IM Q28D 08/03/22 08/03/22 History Decanoate] Allergies Allergy/AdvReac Type Severity Reaction Status Date / Time clozapine AdvReac Diarrhea Verified 08/03/22 12:35 Physical Exam Vitals: Vital Signs Temp Pulse Resp BP Pulse Ox FiO2 08/04/22 09:01 97 21 08/04/22 07:00 98.4 F 77 16 122/82 96 08/04/22 02:00 98.2 F 89 16 127/83 96 08/03/22 20:12 97.6 F 95 18 143/91 97 08/03/22 13:24 98.3 F 102 H 16 128/83 98 Intake and Output 08/03/22 08/04/22 08/04/22 22:59 06:59 14:59 Intake Total 118 236 Balance 118 236 Intake: Oral 118 236 Other: # Voids 1 2 Results 08/04/22 06:35 08/04/22 06:35 CBC 08/04/22 Range/Units 06:35 WBC 6.9 (3.8-10.6) k/uL RBC 3.98 L (4.30-5.90) m/uL Hgb 13.6 (13.0-17.5) gm/dL Hct 36.7 L (39.0-53.0) % Plt Count 166 (150-450) k/uL Comprehensive Metabolic Panel 08/04/22 Range/Units 06:35 Sodium 134 L (137-145) mmol/L Potassium 3.7 (3.5-5.1) mmol/L Chloride 100 (98-107) mmol/L Carbon Dioxide 26 (22-30) mmol/L BUN 4 L (9-20) mg/dL Creatinine 0.69 (0.66-1.25) mg/dL Glucose 101 H (74-99) mg/dL Calcium 8.7 (8.4-10.2) mg/dL Current Medications Generic Name Dose Route Start Last Admin Trade Name Danieleq PRN Reason Stop Dose Admin Aspirin 81 mg 08/04/22 09:00 08/04/22 09:22 Aspirin 81 Mg PO 81 mg DAILY [facility] Administration Atenolol 50 mg 08/04/22 09:00 08/04/22 09:22 Atenolol 50 Mg Tab PO 50 mg DAILY [facility] Administration Fluphenazine Decanoate 50 mg 09/01/22 09:00 Fluphenazine Decanoate 25 Mg/Ml 5ml Mdv IM Q28D [facility] Heparin Sodium (Porcine) 5,000 unit 08/03/22 21:00 08/04/22 09:22 Heparin Sodium,Porcine/Pf 5,000 Unit/0.5 Ml Syringe SQ 5,000 unit Q12HR [facility] Administration Sodium Chloride 1,000 mls @ 75 mls/hr 08/03/22 06:15 08/04/22 09:22 Saline 0.9% IV 75 mls/hr .[id number] [facility] Administration Morphine Sulfate 2 mg 08/03/22 14:42 08/03/22 21:12 Morphine Sulfate 2 Mg/Ml Syringe IVP 2 mg Q4HR PRN Administration Pain/Discomfort Naloxone HCl 0.2 mg 08/03/22 06:12 Naloxone 0.4 Mg/Ml 1 Ml Vial IV Q2M PRN Opioid Reversal Ondansetron HCl 4 mg 08/03/22 06:12 Ondansetron 4 Mg/2 Ml Vial IVP Q8HR PRN Nausea And Vomiting Pantoprazole Sodium 40 mg 08/03/22 09:00 08/04/22 09:22 Pantoprazole 40 Mg/10 Ml Vial IV 40 mg DAILY [facility] Administration Thiamine HCl 100 mg 08/03/22 14:45 08/04/22 09:22 Thiamine 100 Mg/Ml 2 Ml Vial IVP 100 mg DAILY [facility] Administration Intake and Output 08/03/22 08/04/22 08/04/22 22:59 06:59 14:59 Intake Total 118 236 Balance 118 236 Intake: Oral 118 236 Other: # Voids 1 2 08/04/22 06:35 08/04/22 06:35
[2022-08-04] MEDS ORDERED: ATORVASTATIN 10 MG TAB PO SCH (21:00)
--- NOTE | 2022-08-05 07:21 | P.PN ---
Subjective This is a pleasant 56 years old male with multiple medical problems including schizophrenia GERD/Reflux, Hypertension, , ETOH abuse, alcohol withdrawl with tremens, diverticular disease, benign colon polyp, varicose veins. Anxiety, Depression, Schizophrenia Patient presents because of recurrent vomiting for the last 6 days he has been vomiting daily, yesterday he vomited 6 times, he could not eat only very little, however he was still able to drink liquids. This is associated with lower chest pain, he describes chest pain as burning sensation in the lower chest radiating all over to the left side associated with epigastric pain and tenderness and rated as 10/10 in severity although the patient was lying, intubated and does not look in distress. He states that this pain has been going on for about 2 weeks. He denies any dyspnea or coughing, also has been complaining of from mild periumbilical pain but is more in the epigastric area, he didn't have bowel movement for a few days. No urinary complaints. No headache dizziness weakness or numbness. He denies smoking or illicit tracts but he drinks alcohol daily, gait drinks 6 cans of 32 months of beer and he had 3 shots of liquor with each beer (as per bedside nurse also), he says that his last drink was 6 PM yesterday. He denies much grieving for alcohol now but he looks anxious and with slight tremor. He states that he never had a scope before. He follow-up with the [facility]. Here versus since 1994 He denies depressive signs and symptoms, he denies suicidal symptoms, he denies homicidal symptoms but he has thoughts to hurt other people (he did not specify) through the discharge, he wants to take them to Court to put them in penitentiary Patient is mildly tachycardic and febrile Has unremarkable CBC, INR, BMP and liver enzymes. Sodium low 127 Troponin less than 0.0123. Serum alcohol less than 10 chest x-ray: No acute process EKG showing sinus tachycardia at [address] T changes 08/04/2022 Patient nausea vomiting stopped His epigastric pain and tenderness and chest pain in the lower chest is improving No overt symptoms of alcohol withdrawal, no other psychiatric symptoms Patient evaluated by surgery team and plan for EGD this coming week. Cardiology input is appreciated and plan for stress test Plan discussed with the patient and he is agreeable Objective - Vital Signs Vital signs: Vital Signs Temp 98.4 F 08/04/22 07:00 Pulse 77 08/04/22 07:00 Resp 16 08/04/22 07:00 BP 122/82 08/04/22 07:00 Pulse Ox 97 08/04/22 09:01 FiO2 21 08/04/22 09:01 Intake & Output 08/03/22 08/04/22 08/04/22 18:59 06:59 18:59 Intake Total 358 236 Balance 358 236 Weight 83.915 kg Intake: Oral 358 236 Other: # Voids 1 2 - Exam GENERAL: The patient is alert and oriented x3, not in any acute distress. Well developed, well nourished. HEENT: Pupils are round and equally reacting to light. EOMI. No scleral icterus. No conjunctival pallor. Normocephalic, atraumatic. No pharyngeal erythema. No thyromegaly. CARDIOVASCULAR: S1 and S2 present. No murmurs, rubs, or gallops. PULMONARY: Chest is clear to auscultation, no wheezing or crackles. ABDOMEN: Soft, nontender, nondistended, normoactive bowel sounds. No palpable organomegaly. MUSCULOSKELETAL: No joint swelling or deformity. EXTREMITIES: No cyanosis, clubbing, or pedal edema. NEUROLOGICAL: Gross neurological examination did not reveal any focal deficits. SKIN: No rashes. no petechiae. - Labs CBC & Chem 7: 08/04/22 06:35 08/04/22 06:35 Labs: Abnormal Lab Results - Last 24 Hours (Table) 08/04/22 08/04/22 Range/Units 06:35 06:35 RBC 3.98 L (4.30-5.90) m/uL Hct 36.7 L (39.0-53.0) % MCHC 37.1 H (31.0-37.0) g/dL Lymphocytes # 0.7 L (1.0-4.8) k/uL Sodium 134 L (137-145) mmol/L BUN 4 L (9-20) mg/dL Glucose 101 H (74-99) mg/dL Assessment and Plan Assessment: -Intractable nausea vomiting, associated with epigastric pain and tenderness and burning chest pain, rule out GI source, esophagitis versus peptic ulcer disease. Versus gallbladder disease -Lower chest pain, felt cardiac causes to be less likely but not entirely excluded -Mild hypnnatremia, mostly hypovolemic associated with dehydration -Hypertension -History of GERD -History of alcohol withdrawal -Diverticular disease -History of anxiety, depression and schizophrenia Plan: Continue with Protonix twice a day Continue gentle hydration Continue with liquid diet Pain medication Surgical team consulted , plan for EGD psychiatry team consult Cardiology consult, plan for stress test CIWA protocol and thiamine Labs and medication were reviewed.. Continue same treatment. Continue with symptomatic treatment. Resume home medication. Monitor labs and vitals. DVT and GI prophylaxis. Further recommendations as per clinical course of the pat ient DVT prophylaxis: Subcutaneous heparin GI Prophylaxis: Ppi Prognosis is guarded
[2022-08-05] MEDS: SODIUM CHLORIDE 0.9% 1,000 ML IV SCH (08:48)
[2022-08-05] MEDS: atenoloL 50 MG TAB PO SCH (08:49)
[2022-08-05] MEDS: THIAMINE 100 MG/ML 2 ML VIAL IVP SCH (08:49)
[2022-08-05] MEDS: PANTOPRAZOLE 40 MG/10 ML VIAL IV SCH (08:49)
[2022-08-05 10:27] VITALS: RESP 18
--- NOTE | 2022-08-05 13:08 | P.PN ---
Subjective Progress Note Date: 08/05/22 History of present illness: The patient is a 56-year-old male who follows in the office with Dr. FRANCIS Lomeli. He initially presented to the emergency room with intractable nausea and vomiting. He reported to ER staff that he had been experiencing epigastric discomfort which causes a burning sensation up to his throat. He states this has progressively gotten worse as he is under increased stress. He states it has been several years since the patient has undergone cardiac testing in the office. He does follow regularly with his primary care team, as he has an extensive psychiatric history. DIAGNOSTICS: EKG shows sinus tachycardia with hypertensive heart disease Chest x-ray shows no acute cardiopulmonary process Lab data: WBC 6.9, hemoglobin 13.6, hematocrit 36.7, platelet 166, sodium 134, potassium 3.7, BUN 4, creatinine 0.69, troponin negative 3, AST 31, ALT 22, l ipase 76, serum alcohol less than 10 Vital signs blood pressure 122/82, pulse 77, respiratory rate 16, temp 98.4F, SpO2 96% on room air 08/05 Patient is seen today in follow-up. He is scheduled for EGD today. Echocardiogram ordered and pending on results, further plan will be made. Note the patient is alcohol free for 2 days, no signs of DVT. PHYSICAL EXAMINATION: This is a 56-year-old male in no apparent distress at the time of my examination. HEENT: Head is atraumatic, normocephalic. Pupils are equal, round. Sclerae anicteric. Conjunctivae are clear. Mucous membranes of the mouth are moist. Neck is supple. There is no jugular venous distention. No carotid bruit is heard. CHEST EXAMINATION: Lungs are clear to auscultation. No chest wall tenderness is noted on palpation or with deep breathing. HEART EXAMINATION: Heart regular rate and rhythm. S1, S2 heard. No murmurs, gallops or rub. ABDOMEN: Soft, nontender. Bowel sounds are heard. No organomegaly noted. EXTREMITIES: 2+ peripheral pulses with no evidence of peripheral edema and no calf tenderness noted. NEUROLOGIC EXAMINATION: Patient is awake, alert and oriented x3. FINAL ASSESSMENT AND PLAN: Intractable nausea and vomiting Epigastric discomfort, ACS workup unremarkable History of hypertension History of hyperlipidemia History of psychiatric illness History of EtOH abuse PLAN: Continue home cardiac medications Echocardiogram ordered Further recommendations based on clinical course I am dictating on behalf of Dr Brody Heredia's history/physical and assessment/plan. Objective - Vital Signs Vital signs: Vital Signs Temp 98.1 F 08/05/22 07:00 Pulse 72 08/05/22 07:00 Resp 18 08/05/22 07:00 BP 134/91 08/05/22 07:00 Pulse Ox 98 08/05/22 08:28 FiO2 21 08/04/22 09:01 Intake & Output 08/04/22 08/05/22 08/05/22 18:59 06:59 18:59 Intake Total 1072 400 Balance 1072 400 Intake: Intake, IV Titration 600 Amount Sodium Chloride 0.9% 1, 600 000 ml @ 75 mls/hr IV . [id number] [facility] Rx#:[id number] Oral 472 400 Other: Voiding Method Toilet # Voids 2 1 - Labs CBC & Chem 7: 08/04/22 06:35 08/04/22 06:35
--- NOTE | 2022-08-05 14:06 | P.CN ---
Psychiatric Consult - . Consult date: 08/05/22 Consult:: 08/05/22 14:05 IDENTIFYING DATA: This patient is a 56-year-old single, on SSD, male with a significant history of schizophrenia and alcohol use disorder presenting to the hospital on 08/03/2022, brought in by EMS for evaluation of epigastric pain and lower chest pain. HISTORY OF PRESENT ILLNESS: The patient presented to the hospital on 08/03/2022, brought in by EMS for evaluation of epigastric pain. The patient was also noted to be vomiting multiple times prior to his arrival and for several times daily for the past few days. Psychiatry has been consulted for evaluation of the patient's schizophrenia history and concerns for suicidal and homicidal ideation. Upon evaluation by this provider, the patient is not expressing any concerns regarding his general mental health. He last received his Prolixin Decanoate 50 mg IM on 08/01/2022. He reports no significant side effects of this medication. The patient continues to endorse the same delusional thoughts that he had during his previous psychiatric admission in February 2022. During that admission, the patient reported homicidal ideation towards [employer]on as well as auditory hallucinations coming from "authority figures." However, compared to his last admission, the patient is not reporting any desire to do anything about these delusions and auditory hallucinations. He reports no intention to try and hurt anyone. He reports that he is not bothered by them at this time. The patient appears to be at baseline in regards to his chronic schizophrenic symptoms. He rates his severity of his mental symptoms 1 out of 10 in severity with 10 being very severe. The patient continues to endorse heavy alcohol use. He states that he has been drinking rum and Coke however approximates 12-18 shots of rum per day. However, the patient is not reporting any concerns or issues regarding withdrawal to his provider. The patient was counseled at length on abstaining from substances such as alcohol however this has been a chronic problem for this patient and his ACT team is made aware. The patient expresses understanding that he will be undergoing an endoscopic procedure in order to assess for any problems regarding his general health and his nausea and vomiting. He bizarrely states that it may be due to "some kind of shocked dog collar placed in there in the past." However, the patient does not appear to be bothered and does not express any overt concerns to this provider. He has been calm and cooperative with staff and peers and expresses no agitation. PAST PSYCHIATRIC HISTORY: Patient has been previously diagnosed with schizophrenia and alcohol use disorder. The patient is currently on a regimen of Prolixin Decanoate and oral Prolixin. The patient has had multiple inpatient psychiatric admissions with his last time being in February 2022. He is currently open with [facility] and ACT team. Patient has no reported previous suicide attempts. PAST MEDICAL HISTORY: Past Medical History: GERD/Reflux, Hypertension, Vascular Disorder Additional Past Medical History / Comment(s): ETOH abuse, alcohol withdrawl with tremens, diverticular disease, benign colon polyp, varicose veins. History of Any Multi-Drug Resistant Organisms: None Reported Past Surgical History: No Surgical Hx Reported Additional Past Surgical History / Comment(s): Teeth extractions, colonoscopies. Past Anesthesia/Blood Transfusion Reactions: No Reported Reaction Additional Past Anesthesia/Blood Transfusion Reaction / Comment(s): Never had Past Psychological History: Anxiety, Depression, Schizophrenia Additional Psychological History / Comment(s): Pt resides with his brother, Bert Askew. Pt does not drive, his brother drives him or he takes the bus. He goes to [facility]. He manages his own medications. Smoking Status: Never smoker Past Alcohol Use History: Heavy Additional Past Alcohol Use History / Comment(s): Pt has ETOH abuse Past Drug Use History: None Reported ALLERGIES: Allergies Allergy/AdvReac Type Severity Reaction Status Date / Time clozapine AdvReac Diarrhea Verified 08/03/22 12:35 CHEMICAL DEPENDENCY HISTORY: Patient does admit to heavy alcohol use, approximately a 12-18 shots of liquor daily. However is denying any current withdrawal symptoms and has been a few days since his last alcoholic beverage. No reported tobacco or marijuana use. No reported drug use. FAMILY PSYCHIATRIC/SUBSTANCE USE HISTORY: No reported family psychiatric history. One of his cousins reportedly committed suicide by carbon monoxide poisoning. SOCIAL HISTORY: Patient was born and raised in [place] by his parents. He currently lives by himself. He is unemployed and receives Social Security disability. He attended some college. Patient states that he has been living with his brother. MENTAL STATUS EXAM: General Appearance: Patient appears to be stated age is alert, pleasant, and cooperative. Patient appears to have fair hygiene and grooming wearing hospital gown with fair eye contact. Behavior: Patient is calmly lying in bed without any agitated behavior. Speech: Patient's speech is fluent and nonpressured. Mood/Affect: Patient reports their mood is "doing great." Affect is congruent and blunted at baseline. Suicidality/Homicidality: Patient is not reporting any suicidal ideation, intention, and/or plan. At baseline he reports some homicidal ideation towards "[employer]on." He denies any intention or means. He understands the repercussions if he should act on these thoughts. Perceptions: Patient denies any visual hallucinations however endorses auditory hallucinations at baseline. Though content/process: Some paranoid and delusional thought content is endorse however this appears to be baseline. Memory and concentration: AOX3, grossly intact for the purposes of this session. Can spell "WORLD" backwards Judgment and insight: Fair Vital Signs Temp 98.1 F 08/05/22 07:00 Pulse 72 08/05/22 07:00 Resp 18 08/05/22 07:00 BP 134/91 08/05/22 07:00 Pulse Ox 98 08/05/22 08:28 FiO2 21 08/04/22 09:01 Intake & Output 08/04/22 08/05/22 08/05/22 18:59 06:59 18:59 Intake Total 1072 400 Balance 1072 400 Intake: Intake, IV Titration 600 Amount Sodium Chloride 0.9% 1, 600 000 ml @ 75 mls/hr IV . [id number] [facility] Rx#:[id number] Oral 472 400 Other: Voiding Method Toilet # Voids 2 1 Laboratory Results WBC 6.9 k/uL (3.8-10.6) 08/04/22 06:35 RBC 3.98 m/uL (4.30-5.90) L 08/04/22 06:35 Hgb 13.6 gm/dL (13.0-17.5) 08/04/22 06:35 Hct 36.7 % (39.0-53.0) L 08/04/22 06:35 MCV 92.4 fL (80.0-100.0) 08/04/22 06:35 MCH 34.3 pg (25.0-35.0) 08/04/22 06:35 MCHC 37.1 g/dL (31.0-37.0) H 08/04/22 06:35 RDW 13.2 % (11.5-15.5) 08/04/22 06:35 Plt Count 166 k/uL (150-450) 08/04/22 06:35 MPV 7.8 08/04/22 06:35 Neutrophils % 77 % 08/04/22 06:35 Lymphocytes % 10 % 08/04/22 06:35 Monocytes % 7 % 08/04/22 06:35 Eosinophils % 1 % 08/04/22 06:35 Basophils % 1 % 08/04/22 06:35 Neutrophils # 5.3 k/uL (1.3-7.7) 08/04/22 06:35 Lymphocytes # 0.7 k/uL (1.0-4.8) L 08/04/22 06:35 Monocytes # 0.5 k/uL (0-1.0) 08/04/22 06:35 Eosinophils # 0.1 k/uL (0-0.7) 08/04/22 06:35 Basophils # 0.0 k/uL (0-0.2) 08/04/22 06:35 Hyperchromasia Slight 08/04/22 06:35 PT 10.0 sec (9.0-12.0) 08/03/22 03:13 INR 0.9 (<1.2) 08/03/22 03:13 APTT 24.7 sec (22.0-30.0) 08/03/22 03:13 Sodium 134 mmol/L (137-145) L 08/04/22 06:35 Potassium 3.7 mmol/L (3.5-5.1) 08/04/22 06:35 Chloride 100 mmol/L (98-107) 08/04/22 06:35 Carbon Dioxide 26 mmol/L (22-30) 08/04/22 06:35 Anion Gap 8 mmol/L 08/04/22 06:35 BUN 4 mg/dL (9-20) L 08/04/22 06:35 Creatinine 0.69 mg/dL (0.66-1.25) 08/04/22 06:35 Est GFR (CKD-EPI)AfAm >90 (>60 ml/min/1.73 sqM) 08/04/22 06:35 Est GFR (CKD-EPI)NonAf >90 (>60 ml/min/1.73 sqM) 08/04/22 06:35 Glucose 101 mg/dL (74-99) H 08/04/22 06:35 Calcium 8.7 mg/dL (8.4-10.2) 08/04/22 06:35 Magnesium 1.7 mg/dL (1.6-2.3) 08/03/22 03:13 Total Bilirubin 2.6 mg/dL (0.2-1.3) H 08/03/22 03:13 AST 31 U/L (17-59) 08/03/22 03:13 ALT 22 U/L (4-49) 08/03/22 03:13 Alkaline Phosphatase 55 U/L (38-126) 08/03/22 03:13 Troponin I <0.012 ng/mL (0.000-0.034) 08/03/22 11:48 Total Protein 7.5 g/dL (6.3-8.2) 08/03/22 03:13 Albumin 4.7 g/dL (3.5-5.0) 08/03/22 03:13 Lipase 76 U/L (23-300) 08/03/22 03:13 Serum Alcohol <10 mg/dL 08/03/22 03:13 IMPRESSIONS: Schizophrenia Alcohol use disorder PLAN: -Continue your medical management and evaluation. -Patient counseled at length on abstaining from alcohol however he remains precontemplative. This is a chronic issue for the patient. -At this time patient DOES NOT meet criteria for inpatient psychiatric admission. The patient is currently presenting at baseline. Chronically, the patient continues to have these delusional thoughts, auditory hallucinations, and thoughts of hurting [employer]on. However, the patient is not presenting with imminent risk of harm to himself or others as he expresses no intention or means to do so. The patient follows closely with [facility]. He has been adherent with his medication. -Would recommend the following medication changes/additions: No psychiatric medications will be recommended at this time. The patient is receiving Prolixin Decanoate 50 mg IM with last dose administered on 08/01/2022 -Patient does not require one-to-one sitter. -Psychiatry will sign off at this point, please contact with any questions or concerns. Reconsult if necessary. -Recommend outpatient psychiatry follow-up with [facility]. 08/05/22 14:06
[2022-08-05] MEDS ORDERED: LIDOCAINE 2% INJ 20 MG/ML (2 ML VIAL) ONE (15:22)
[2022-08-05] MEDS ORDERED: PROPOFOL 10 MG/ML 20 ML VIAL IV ONE (15:22)
[2022-08-05] MEDS ORDERED: IV FLUID CONTINUATION 600 ML IV ONE (15:27)
--- NOTE | 2022-08-05 15:37 | P.OP ---
Date of Procedure: 08/05/22 Preoperative Diagnosis: GERD, nausea Postoperative Diagnosis: Antral gastritis Hiatal hernia Esophagitis Procedure(s) Performed: EGD Anesthesia: MAC Surgeon: Alfredo Mason Pathology: other (Antrum, esophagus) Condition: stable Disposition: PACU Description of Procedure: The patient's placed on the endoscopy table in the lateral position. He received IV sedation. The gastro-/oropharynx passed in the esophagus and stomach. Scope was placed into the duodenum. The first and second portion duodenum appeared normal. Scope was then brought back the antrum this appeared mildly inflamed. A biopsies scope was unretroflexed and the remainder of the stomach appeared normal. Patient had a hiatal hernia. The GE junction was at 38 cm the distal esophagus. Inflamed. Biopsies performed. The proximal esophagus appeared normal. Scope withdrawn for patient.
[2022-08-05] MEDS: HEPARIN SODIUM,PORCINE/PF 5,000 UNIT/0.5 ML SYRINGE SQ SCH (15:55)
[2022-08-05] MEDS: ASPIRIN 81 MG PO SCH (15:55)
[2022-08-05 16:40] VITALS: TEMP 97.9
[2022-08-05 17:14] VITALS: BP 138/91; PULSE 74
--- NOTE | 2022-08-06 07:01 | P.DS ---
Providers Date of admission: 08/03/22 14:46 Expected date of discharge: 08/05/22 Attending physician: Drew Quinteros MD Consults: 08/03/22 14:30 Consult Physician Urgent Consulting Provider: Alfredo Mason Consult Reason/Comments: epigastric pain and tenderness Do you want consulting provider notified?: Yes Consult Physician Urgent Consulting Provider: Maury Yuen Consult Reason/Comments: h/o schizophrenia, thoughts to harm Do you want consulting provider notified?: Yes 08/03/22 14:37 Consult Physician Routine Consulting Provider: Quinten Martin Consult Reason/Comments: chest pain , atypical Do you want consulting provider notified?: Yes Primary care physician: [facility] Course: Final diagnosis -Intractable nausea vomiting, associated with epigastric pain and tenderness and burning chest pain, likely secondary to esophagitis and antral gastritis as noted on EGD -Lower chest pain, felt cardiac causes to be less likely but not entirely excluded ruled out ACS -Mild hypnnatremia, mostly hypovolemic associated with dehydration improved -Hypertension -History of GERD -History of alcohol withdrawal -Diverticular disease -History of anxiety, depression and schizophrenia Discharge disposition Patient is being discharged in a stable condition with guarded prognosis to home. Patient will [facility] setting upon discharge. Patient is to follow-up with general surgery for biopsy results as well as primary care provider in the outpatient setting as scheduled. Total time taken is greater than 35 minutes. Hospital course This is a 56-year-old male who was recently admitted with intractable nausea and vomiting being closely monitored with cardiology evaluating the patient. ACS ruled out and patient has been cleared by cardiology for discharge. Patient having some continued nausea and vomiting was evaluated by general surgery underwent EGD showing some antral gastritis and esophagitis with hiatal hernia. Patient has been cleared by consultations for discharge. Please refer to cardiology and Gen. surgery notes along with psychiatry notes for further HPI. Patient will need follow-up with general surgery in 1-2 weeks for biopsy results. Reports the nausea and vomiting has stopped and is tolerating oral intake. Would recommend starting with clears and slowly advancing to full liquids and then low fiber as tolerated. Currently no reports of chest pain, shortness of breath, or palpitations. Patient is afebrile. No reports of nausea or vomiting and patient is tolerating diet. Patient will be discharged home today. Guarded Prognosis. Physical exam: Gen: This is a 56-year-old male who is awake, alert and oriented 3, well- developed, well-nourished, obese HEENT: Head is atraumatic, normocephalic. Pupils equal, round. Sclerae is anicteric. NECK: Supple. No JVD. No lymphadenopathy. No thyromegaly. LUNGS: Clear to auscultation. No wheezes or rhonchi. No intercostal retractions. HEART: S1, S2 are muffled ABDOMEN: Soft. Bowel sounds are present. No masses. No tenderness. EXTREMITIES: No pedal edema. No calf tenderness. NEUROLOGICAL: Patient is awake, alert and oriented x3. Cranial nerves 2 through 12 are grossly intact. Please refer to medication reconciliation sheet for a list of medications. The impression and plan of care has been dictated by Merry Maldonado, Nurse Practitioner as directed. Dr. Dk MD I have performed a history and examination and MDM of this patient, discussed the same with the dictator, and agree with the dictator's assessment and plan as written ,documented as a scribe. Based on total visit time, I have performed more than 50% of the visit. Patient Condition at Discharge: Stable Plan - Discharge Summary Discharge Rx Participant: Yes New Discharge Prescriptions: New Pantoprazole Sodium [Protonix] 40 mg PO DAILY #15 tab Atorvastatin [Lipitor] 10 mg PO HS #30 tab Continue fluPHENAZine decanoate [Prolixin Decanoate] 50 mg IM Q28D Aspirin 81 mg PO DAILY 30 Days tab atenoloL [Tenormin] 50 mg PO DAILY Sodium Chloride Tab 1 gm PO Q48H Discharge Medication List Aspirin 81 mg PO DAILY 30 Days tab 01/29/21 [Rx] Sodium Chloride Tab 1 gm PO Q48H 08/03/22 [History] atenoloL [Tenormin] 50 mg PO DAILY 08/03/22 [History] fluPHENAZine decanoate [Prolixin Decanoate] 50 mg IM Q28D 08/03/22 [History] Atorvastatin [Lipitor] 10 mg PO HS #30 tab 08/05/22 [Rx] Pantoprazole Sodium [Protonix] 40 mg PO DAILY #15 tab 08/05/22 [Rx] Follow up Appointment(s)/Referral(s): Lomeli,Beeravolu, MD [STAFF PHYSICIAN] - 1 Week [facility] [Primary Care Provider] - 1-2 days Alfredo Mason MD [STAFF PHYSICIAN] - 1 Week Patient Instructions/Handouts: Gastroenteritis (DC) Activity/Diet/Wound Care/Special Instructions: Activity Limited until follow-up Follow-up with primary care provider on discharge Continue Protonix daily for the next 2 weeks Continue taking medications as prescribed Continue clear liquids for tonight slowly advance as tolerated to full liquids over the next few days and low fiber until tolerating Follow-up with general surgery outpatient in one week to 2 weeks for biopsy results Discharge Disposition: HOME SELF-CARE
--- NOTE | 2022-08-06 09:37 | CA ---
Transthoracic Echo Report Name: Tin Askew Age: 56 Gender: M : 1965 Exam Date: 08/05/2022 14:38 Exam Location: [facility] Ht (in): 66 Wt (lb): 185 Ordering Physician: Alla Teran Attending/Referring Phys: [id number], Jeffry Shale Processing Technician Honey Bunch RDCS Procedure CPT: Indications: LVF Cardiac Hx: Technical Quality: Fair Contrast 1: Total Dose (mL): Contrast 2: Total Dose (mL): MEASUREMENTS (Male / Female) Normal Values 2D ECHO LV Diastolic Diameter PLAX 4.9 cm 4.2 - 5.9 / 3.9 - 5.3 cm LV Systolic Diameter PLAX 3.3 cm IVS Diastolic Thickness 1.4 cm 0.6 - 1.0 / 0.6 - 0.9 cm LVPW Diastolic Thickness 0.9 cm 0.6 - 1.0 / 0.6 - 0.9 cm LV Relative Wall Thickness 0.5 Ascending Aorta Diameter 3.5 cm M-MODE Aortic Root Diameter MM 2.9 cm AV Cusp Separation MM 1.5 cm DOPPLER AV Peak Velocity 107.0 cm/s AV Peak Gradient 4.6 mmHg LVOT Peak Velocity 81.8 cm/s LVOT Peak Gradient 2.7 mmHg MV Area PHT 3.3 cm??? Mitral E Point Velocity 54.5 cm/s Mitral A Point Velocity 75.6 cm/s Mitral E to A Ratio 0.7 MV Deceleration Time 227.4 ms FINDINGS Left Ventricle Mild septal wall thickness.grade 1 diastolic dysfunction. Left ventricular ejection fraction is estimated at 55%. Right Ventricle Normal right ventricular size. Right ventricular systolic pressure within normal limits. Right Atrium Right atrial dilatation. Left Atrium Normal left atrial size. Mitral Valve Structurally normal mitral valve. No mitral regurgitation. No mitral stenosis. Aortic Valve Trileaflet aortic valve. No aortic regurgitation. No aortic stenosis. Tricuspid Valve Structurally normal tricuspid valve. Mild tricuspid regurgitation. Pulmonic Valve Structurally normal pulmonic valve. Pericardium No pericardial or pleural effusion. No pericardial or pleural effusion. Aorta Normal size aortic root and proximal ascending aorta. CONCLUSIONS Normal LV size and systolic function with mild concentric LVH. No significant abnormality on the Doppler exam. No pericardial effusion Previewed by: Dr. Kevan Lomeli MD (Electronically Signed) Final Date: 06 August 2022 09:36
[2022-09-01] MEDS ORDERED: fluPHENAZine DECANOATE 25 MG/ML 5ML MDV IM SCH (09:00)
== END 2022-08-05 18:57 | disposition home or self-care (01) | DRG 392 ==
LOC: EC 02:59 → 6NMEDSUR 06:12 → OBSVTOIN 14:46
PROVIDERS: ADMIT Internal Medicine; ATTEND Internal Medicine
PROC: 0DB68ZX Excision of Stomach, Via Natural or Artificial Opening Endoscopic, Diagnostic (ICD-10-PCS; 2022-08-05)
PROC: 0DB38ZX Excision of Lower Esophagus, Via Natural or Artificial Opening Endoscopic, Diagnostic (ICD-10-PCS; principal; 2022-08-05 07:50)
DX: K29.60 Other gastritis without bleeding (principal); E87.1 Hypo-osmolality and hyponatremia; K44.9 Diaphragmatic hernia without obstruction or gangrene; K21.00 Gastro-esophageal reflux disease with esophagitis, without bleeding; E86.0 Dehydration; F32.A Depression, unspecified; F41.9 Anxiety disorder, unspecified; F32.9 Major depressive disorder, single episode, unspecified; I10 Essential (primary) hypertension; F20.9 Schizophrenia, unspecified; K57.90 Diverticulosis of intestine, part unspecified, without perforation or abscess without bleeding; E86.1 Hypovolemia; F10.10 Alcohol abuse, uncomplicated; Z86.010 Personal history of colon polyps; Z79.82 Long term (current) use of aspirin; Z79.899 Other long term (current) drug therapy
CPT/HCPCS: 36415; 43239; 71046; 80048; 80053; 80320; 83690; 83735; 84484; 85025; 85610; 85730; 88305; 93005; 93306; 94760; 96361; 96374; 96375; 99285

== ENCOUNTER 2023-08-07 16:04 | Inpatient (IN) | payer MEDICARE, OTHER ==
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
[2023-08-07 17:44] LABS: Amphetamine Screen,Urine Not Detected (NotDetected); Barbiturate Screen,Urine Not Detected (NotDetected); Benzodiazepines Screen,Urine Not Detected (NotDetected); Cocaine Screen,Urine Not Detected (NotDetected); Methadone Screen, Urine Not Detected (NotDetected); Opiate Screen,Urine Not Detected (NotDetected); Oxycodone Screen, Urine Not Detected (NotDetected); Phencyclidine Screen,Urine Not Detected (NotDetected); Tricyclic Antidepressant,Urine Not Detected (NotDetected); Urn Cannabinoid Scrn Not Detected (NotDetected)
[2023-08-07 22:21] LABS: HCT 40.2 % (39.0-53.0); HGB 14.2 gm/dL (13.0-17.5); MCH 32.6 pg (25.0-35.0); MCHC 35.3 g/dL (31.0-37.0); MCV 92.3 fL (80.0-100.0); Mean Platelet Volume 7.7; Platelet Count 214 k/uL (150-450); RBC 4.36 m/uL (4.30-5.90); RDW 13.8 % (11.5-15.5); WBC 4.5 k/uL (3.8-10.6)
[2023-08-07 22:32] LABS: ALT 49 U/L (4-49); AST 55 U/L (17-59); African American GFR (CKD) >90 (>60 ml/min/1.73 sqM); Albumin 4.6 g/dL (3.5-5.0); Alkaline Phosphatase 66 U/L (38-126); Anion Gap 10 mmol/L; Blood Urea Nitrogen 9 mg/dL (9-20); Calcium 9.3 mg/dL (8.4-10.2); Carbon Dioxide 23 mmol/L (22-30); Chloride 105 mmol/L (98-107); Glucose 79 mg/dL (74-99); Non-African American GFR(CKD) >90 (>60 ml/min/1.73 sqM); Potassium 3.6 mmol/L (3.5-5.1); Sodium 138 mmol/L (137-145); Total Bilirubin 0.8 mg/dL (0.2-1.3); Total Protein 7.6 g/dL (6.3-8.2)
[2023-08-07 23:19] LABS: Band Neutrophils % 1 %; Monocytes # (M) 0.68 k/uL (0-1.0); Neutrophils % (M) 64 %; Nucleated Red Blood Cells 0 /100 WBC (0-0); RBC Morphology Normal; Total Cells Counted 100
[2023-08-08] MEDS ORDERED: ACETAMINOPHEN TAB 325 MG TAB PO PRN (16:24)
[2023-08-08] MEDS ORDERED: LORazepam 1 MG TAB PO PRN ×3 (16:24→16:34)
[2023-08-08] MEDS ORDERED: haloperidoL 5 MG TAB PO PRN (16:24)
[2023-08-08] MEDS ORDERED: MAGNESIUM HYDROXIDE 2,400 MG/30 ML CUP PO PRN (16:24)
[2023-08-08] MEDS ORDERED: IBUPROFEN 600 MG TAB PO PRN (16:24)
[2023-08-08] MEDS ORDERED: MAG HYDROX/AL HYDROX/SIMETH 355 ML BOTTLE PO PRN (16:24)
[2023-08-08] MEDS ORDERED: LORazepam 2 MG/ML INJ IM PRN (16:24)
[2023-08-08] MEDS ORDERED: HALOPERIDOL LACTATE 5 MG/ML 1 ML VIAL IM PRN (16:24)
[2023-08-08] MEDS: DIVALPROEX ER 500 MG TAB.ER.24H PO SCH (22:10)
[2023-08-08] MEDS: atenoloL 50 MG TAB PO SCH (22:10)
[2023-08-08] MEDS: chlordiazePOXIDE 25 MG CAP PO SCH (22:10)
--- NOTE | 2023-08-09 07:33 | P.MDCNMH ---
History of Present Illness H&P Date: 08/09/23 Chief Complaint: medical evaluation 57-year-old male with schizophrenia and hypertension Patient is coming in for the hospital for mental health evaluation he was petitioned by [facility] for evaluation as he was not compliant not taking his medication. During my interview with the patient he was having flight of ideas not answering any of my questions been making derogatory comments about he is only going to talk to a heart doctor because he has a silver heart. I was not able to obtain any meaningful information during the interview with the patient review of systems Pertinent positives as noted in HPI. All other systems were reviewed and are negative review of systems Pertinent positives as noted in HPI. All other systems were reviewed and are negative on exam Constitutional: No acute distress Eyes: Anicteric sclerae, moist conjunctiva, Pupils equal round reactive to light ENMT: NC/AT Lungs: declined Cardiovascular: declined Abdominal: declined Psychiatric: Alert and oriented to person, place and time Neuro moving all 4 extremities purposefully Past Medical History Past Medical History: GERD/Reflux, Hypertension, Vascular Disorder Additional Past Medical History / Comment(s): ETOH abuse, alcohol withdrawl with tremens, diverticular disease, benign colon polyp, varicose veins. History of Any Multi-Drug Resistant Organisms: None Reported Past Surgical History: No Surgical Hx Reported Additional Past Surgical History / Comment(s): Teeth extractions, colonoscopies. Past Anesthesia/Blood Transfusion Reactions: No Reported Reaction Additional Past Anesthesia/Blood Transfusion Reaction / Comment(s): Never had Past Psychological History: Anxiety, Depression, Schizophrenia Additional Psychological History / Comment(s): Pt resides with his brother, Bert Askew. Pt does not drive, his brother drives him or he takes the bus. He goes to [facility]. He manages his own medications. Smoking Status: Never smoker Past Alcohol Use History: Heavy Additional Past Alcohol Use History / Comment(s): Pt has ETOH abuse Past Drug Use History: None Reported - Past Family History Father Family Medical History: Myocardial Infarction ([place]) Additional Family Medical History / Comment(s): AT AGE 58 FROM [place] Mother Family Medical History: Deep Vein Thrombosis (DVT), Hypertension Additional Family Medical History / Comment(s): PRIMARY PULMONARY HYPERTENSION Medications and Allergies Home Medications Medication Instructions Recorded Confirmed Type Aspirin 81 mg PO DAILY 30 Days tab 01/29/21 08/07/23 Rx atenoloL [Tenormin] 50 mg PO BID 08/03/22 08/07/23 History fluPHENAZine decanoate [Prolixin 25 mg IM Q14D 08/03/22 08/07/23 History Decanoate] Pantoprazole Sodium [Protonix] 40 mg PO DAILY #15 tab 08/05/22 08/07/23 Rx Acetaminophen Tab [Tylenol] 650 mg PO TID PRN 08/07/23 08/07/23 History Cholecalciferol [Vitamin D3 (125 125 mcg PO DAILY 08/07/23 08/07/23 History Mcg = 5000 Iu)] Divalproex ER [Depakote ER] 500 mg PO BID 08/07/23 08/07/23 History Loratadine [Claritin] 10 mg PO DAILY 08/07/23 08/07/23 History Potassium Chloride ER [K-Dur 10] 10 meq PO DAILY 08/07/23 08/07/23 History Sodium Bicarbonate Tab 650 mg PO DAILY 08/07/23 08/07/23 History Sodium Chloride Tab 1 gm PO DAILY 08/07/23 08/07/23 History amLODIPine [Norvasc] 10 mg PO DAILY 08/07/23 08/07/23 History fluPHENAZine HCl 10 mg PO HS 08/07/23 08/07/23 History Allergies Allergy/AdvReac Type Severity Reaction Status Date / Time clozapine AdvReac Hypotension Verified 08/07/23 16:41 /Diarrhea Physical Exam Vitals: Vital Signs Temp Pulse Pulse Resp BP BP Pulse Ox 08/08/23 22:11 98.0 F 130 H 14 140/102 08/08/23 17:15 96.9 F L 111 H 16 142/98 98 Cranial Nerve Examination - Cranial Nerves Cranial Nerve II- Optic: Intact Cranial Nerve III- Oculomotor: Intact Cranial Nerve IV- Trochlear: Intact Cranial Nerve V- Trigeminal: Intact Cranial Nerve - Abducens: Intact Cranial Nerve VII- Facial: Intact Cranial Nerve VIII- Auditory: Intact Cranial Nerve IX- Glossopharyngeal: Intact Cranial Nerve X- Vagus: Intact Cranial Nerve XI- Accessory: Intact Cranial Nerve XII- Hypoglossal: Intact Results CBC & Chem 7: 08/07/23 21:50 08/07/23 21:50 Assessment and Plan Assessment: hypertension uncontrolled resume amlodipine atenolol continue to monitor BP acute psychosis schizophrenia management per psych Blood work showing white count 4.5 hemoglobin 14.2 Sodium 138 potassium 3.6 BUN 9 creatinine 0.7 COVID-negative
[2023-08-09] MEDS: amLODIPine 10 MG TAB PO SCH (09:08)
[2023-08-09] MEDS: PANTOPRAZOLE 40 MG TABLET PO SCH (09:08)
[2023-08-09] MEDS: THIAMINE 100 MG TAB PO SCH (09:08)
[2023-08-09] MEDS: MULTIVITAMINS, THERA 1 EACH TAB PO SCH (09:08)
[2023-08-09] MEDS: LORATADINE 10 MG TAB PO SCH (09:08)
[2023-08-09] MEDS: ASPIRIN 81 MG PO SCH (09:08)
[2023-08-09] MEDS: FOLIC ACID 1 MG TAB PO SCH (09:08)
[2023-08-09] MEDS: CHOLECALCIFEROL 125 MCG (5000 IU) TABLET PO SCH (09:09)
[2023-08-09] MEDS: POTASSIUM CHLORIDE ER 10 MEQ TAB.ER.PRT PO SCH (09:09)
[2023-08-09] MEDS: SODIUM CHLORIDE TAB 1 GM TAB PO SCH (09:09)
[2023-08-09] MEDS: SODIUM BICARBONATE TAB 650 MG TAB PO SCH (09:09)
[2023-08-09 10:16] LABS: ALT 46 U/L (4-49); AST 42 U/L (17-59); Albumin 4.5 g/dL (3.5-5.0); Alkaline Phosphatase 60 U/L (38-126); Bilirubin, Delta 0.3 mg/dL (0.0-0.2); Bilirubin,Unconjugated 1.2 mg/dL (0.0-1.1); Total Bilirubin 1.5 mg/dL (0.2-1.3); Total Protein 7.4 g/dL (6.3-8.2)
--- NOTE | 2023-08-09 11:33 | P.HP ---
Psychiatric H&P - . H&P Date: 08/09/23 History & Physical: Allergies Allergy/AdvReac Type Severity Reaction Status Date / Time clozapine AdvReac Hypotension Verified 08/07/23 16:41 /Diarrhea Vital Signs Temp 97.5 F L 08/09/23 06:00 Pulse 83 08/09/23 06:00 Resp 18 08/09/23 06:00 BP 118/68 08/09/23 06:00 Pulse Ox 97 08/09/23 06:00 FiO2 Laboratory Last Values WBC 4.5 k/uL (3.8-10.6) 08/07/23 21:50 RBC 4.36 m/uL (4.30-5.90) 08/07/23 21:50 Hgb 14.2 gm/dL (13.0-17.5) 08/07/23 21:50 Hct 40.2 % (39.0-53.0) 08/07/23 21:50 MCV 92.3 fL (80.0-100.0) 08/07/23 21:50 MCH 32.6 pg (25.0-35.0) 08/07/23 21:50 MCHC 35.3 g/dL (31.0-37.0) 08/07/23 21:50 RDW 13.8 % (11.5-15.5) 08/07/23 21:50 Plt Count 214 k/uL (150-450) 08/07/23 21:50 MPV 7.7 08/07/23 21:50 Neutrophils % (Manual) 64 % 08/07/23 21:50 Band Neuts % (Manual) 1 % 08/07/23 21:50 Lymphocytes % (Manual) 20 % 08/07/23 21:50 Monocytes % (Manual) 15 % 08/07/23 21:50 Neutrophils # (Manual) 2.90 k/uL (1.3-7.7) 08/07/23 21:50 Lymphocytes # (Manual) 0.90 k/uL (1.0-4.8) L 08/07/23 21:50 Monocytes # (Manual) 0.68 k/uL (0-1.0) 08/07/23 21:50 Nucleated RBCs 0 /100 WBC (0-0) 08/07/23 21:50 Manual Slide Review Performed 08/07/23 21:50 RBC Morphology Normal 08/07/23 21:50 Sodium 138 mmol/L (137-145) 08/07/23 21:50 Potassium 3.6 mmol/L (3.5-5.1) 08/07/23 21:50 Chloride 105 mmol/L (98-107) 08/07/23 21:50 Carbon Dioxide 23 mmol/L (22-30) 08/07/23 21:50 Anion Gap 10 mmol/L 08/07/23 21:50 BUN 9 mg/dL (9-20) 08/07/23 21:50 Creatinine 0.71 mg/dL (0.66-1.25) 08/07/23 21:50 Est GFR (CKD-EPI)AfAm >90 (>60 ml/min/1.73 sqM) 08/07/23 21:50 Est GFR (CKD-EPI)NonAf >90 (>60 ml/min/1.73 sqM) 08/07/23 21:50 Glucose 79 mg/dL (74-99) 08/07/23 21:50 Calcium 9.3 mg/dL (8.4-10.2) 08/07/23 21:50 Total Bilirubin 1.5 mg/dL (0.2-1.3) H 08/09/23 09:24 Conjugated Bilirubin 0.0 mg/dL (0.0-0.3) 08/09/23 09:24 Unconjugated Bilirubin 1.2 mg/dL (0.0-1.1) H 08/09/23 09:24 Delta Bilirubin 0.3 mg/dL (0.0-0.2) H 08/09/23 09:24 AST 42 U/L (17-59) 08/09/23 09:24 ALT 46 U/L (4-49) 08/09/23 09:24 Alkaline Phosphatase 60 U/L (38-126) 08/09/23 09:24 Total Protein 7.4 g/dL (6.3-8.2) 08/09/23 09:24 Albumin 4.5 g/dL (3.5-5.0) 08/09/23 09:24 TSH 0.756 mIU/L (0.465-4.680) 08/09/23 09:24 Urine Opiates Screen Not Detected (NotDetected) 08/07/23 17:06 Ur Oxycodone Screen Not Detected (NotDetected) 08/07/23 17:06 Urine Methadone Screen Not Detected (NotDetected) 08/07/23 17:06 Ur Barbiturates Screen Not Detected (NotDetected) 08/07/23 17:06 U Tricyclic Antidepress Not Detected (NotDetected) 08/07/23 17:06 Ur Phencyclidine Scrn Not Detected (NotDetected) 08/07/23 17:06 Ur Amphetamines Screen Not Detected (NotDetected) 08/07/23 17:06 U Methamphetamines Scrn Not Detected (NotDetected) 08/07/23 17:06 U Benzodiazepines Scrn Not Detected (NotDetected) 08/07/23 17:06 Urine Cocaine Screen Not Detected (NotDetected) 08/07/23 17:06 U Marijuana (THC) Screen Not Detected (NotDetected) 08/07/23 17:06 SARS-CoV-2 (PCR) Not Detected (Not Detectd) 08/07/23 21:50 08/09/23 11:24 IDENTIFYING DATA: Patient is a 57-year-old single, on SSD, male with a significant history of schizophrenia and alcohol use disorder. HPI: Patient presented to the hospital on a petition. Patient has a history of schizophrenia, currently follows up at [facility]. He also has history of alcohol use disorder. He apparently was having flight of ideas, delusions and admitting to alcohol abuse. Patient also admitted to hearing voices in the ER. Urine drug screen was negative. Petition claims that "Tin is presenting with symptoms of paranoia believing this staff wants to bash his T10. His safety is at risk due to poor judgment. He is not taking oral medications. Very angry yelling. Police informed this auto service writer that Tin called "[employer]" insurance company threatening to send a bomb via drone. He was naked when police arrived". Patient has had several inpatient psychiatric admissions. He was seen laying in his bed today. He was agreeable to speak to auto service writer. He states that he is feeling tired. He was rambling, claims that he "swallowed 14 pills". He spoke about the rawhide trimmer's department and "Manager Of Transportation [employer]" conspiring against him. He was fairly illogical had loose associations. He believes that the regulatory technician is a potential "spot". He also spoke significantly about "[employer] however was rambling. He does not believe he needs medications, he states that he lives in a mansion at this time. Has a flight of ideas. Racing thoughts. Denying any withdrawal symptoms at this time no shakes. Claims that he is hearing voices claims that they are "radiofrequencies". Denies any visual hallucinations. Denies any suicidal homicidal ideations intent or plan. He does claim that he drinks "only expensive alcohol" however did not specify how much and when his last drink was. PAST PSYCHIATRIC HISTORY: Patient has been previously diagnosed with schizophrenia and alcohol use disorder. The patient is currently on a regimen of Prolixin Decanoate and oral Prolixin. She is also on Depakote. The patient has had multiple inpatient psychiatric admissions with his last time being in February 2022. He is currently open with [facility]. Patient has no reported previous suicide attempts. PMH: Past Medical History: GERD/Reflux, Hypertension, Vascular Disorder Additional Past Medical History / Comment(s): ETOH abuse, alcohol withdrawl with tremens, diverticular disease, benign colon polyp, varicose veins. History of Any Multi-Drug Resistant Organisms: None Reported Past Surgical History: No Surgical Hx Reported Additional Past Surgical History / Comment(s): Teeth extractions, colonoscopies. Past Anesthesia/Blood Transfusion Reactions: No Reported Reaction Additional Past Anesthesia/Blood Transfusion Reaction / Comment(s): Never had Past Psychological History: Anxiety, Depression, Schizophrenia Smoking Status: Never smoker Past Alcohol Use History: Heavy Past Drug Use History: None Reported ALLERGIES: NO KNOWN DRUG ALLERGIES CHEMICAL DEPENDENCY HISTORY: Unknown, patient had a negative urine drug screen. He has a history of alcohol use disorder FAMILY PSYCHIATRIC/SUBSTANCE USE HISTORY: No reported family psychiatric history. One of his cousins reportedly committed suicide by carbon monoxide poisoning. SOCIAL HISTORY: Patient was born and raised in [place] by his parents. He currently lives by himself. He is unemployed and receives Social Security disability. He attended some college. MENTAL STATUS EXAM: General Appearance: Patient appears to be stated age is alert, directable, and attempts to cooperate. Patient appears to have fair hygiene and grooming. Behavior: Patient is lying down in bed without any agitated behavior. Eye contact is appropriate. Speech: Patient's speech is rambling, loose associations Mood/Affect: Patient reports their mood is "same." Affect is blunted. Suicidality/Homicidality: Patient denies having any homicidal ideation intent or plan. Denies any suicidal ideations intent or plan Perceptions: Patient denies any visual hallucinations, he is endorsing auditory hallucinations claiming that he is hearing "radiofrequencies" Though content/process: Patient is delusional, flight of ideas, rambling, illogical. Memory and concentration: AOX3, grossly intact for the purposes of this session. Cannot spell "WORLD" backwards Judgment and insight: chronically poor STRENGTHS/WEAKNESSES: Strength is that the patient is resilient. Weakness is that the patient engaged in heavy substance abuse and has very treatment resistant schizophrenia. INTELLECT: average IMPRESSIONS: Schizophrenia Alcohol use disorder Nicotine dependence PLAN: -Patient is admitted under involuntary status to [facility] for stabilization of psychiatric symptoms and safety. Barrel Washer will complete second certificate, will fax to certificates plus petition due to the courts and await deferral and court hearing date. -Medications : Will gather further information about patient's dose of Prolixin D [facility] records. Will start Librium 25 mg 3 times daily for alcohol withdrawal, plan to taper down. CIWA protocol with as needed Ativan. Change Depakote to 1000 mg nightly for mood stabilization, trazodone 100 mg nightly as needed for sleep. -Ativan and Haldol PRN for agitation/aggression -Patient was informed of the risks, benefits and side effects of the medication, patient did not sign medication consent form -Internal Medicine consult to perform medical evaluation and physical. -NRT - nicotine patch - on board for discharge planning. Encourage patient to participate in groups to work on coping skills. 08/09/23 11:32
[2023-08-09] MEDS: DIVALPROEX ER 500 MG TAB.ER.24H PO SCH (20:54)
[2023-08-09 22:36] LABS: Chol/HDL Ratio 1.22 Ratio; LDL Cholesterol,Calculated 15.5 mg/dL (0.0-131.0); VLDL Calculation 4.88 mg/dL (5.00-40.00)
--- NOTE | 2023-08-10 10:40 | P.PN ---
Progress Note - Text Progress Note Date: 08/10/23 Interval history: Patient was seen laying in bed today and was directable and agreeable to speak with consumer loan underwriter. Patient appeared to be fairly drowsy, he was agreeable to speak to consumer loan underwriter. He appeared to be calmer today, denies any withdrawal symptoms. Continues to have loose associations, illogical. Continues to speak about "swallowing pills" and also was fairly focused on "[employer]". He appeared to be more directable during conversation today. He has been taking medications. Claims that he slept fairly last night and has been eating, denies any other complaints. At this time patient denies any suicidal or homicidal ideations intent or plan. Denies any visual hallucinations. He continues to state that he is hearing "lots of voices". Patient denies any side effects from the medications and has been compliant with meds. Mental status exam: General Appearance: Patient appears to be stated age is fairly tired, directable, and times to be cooperative. Behavior: No agitated behavior. Patient is calm and directable. Bizarre Speech: Patient's speech is fluent and nonpressured. Mood/Affect: Mood is improving mildly, affect is congruent and constricted. Suicidality/Homicidality: Patient denies having any suicidal or homicidal ideation intent or plan. Perceptions: Patient denies any auditory or visual hallucinations. Though content/process: Continues to have delusions, loosely formed, illogical, loose associations. Memory and concentration: AOX3, grossly intact for the purposes of this session Judgment and insight: Phonically poor, improving mildly Assessment/Plan: Continue with current diagnosis. Patient continues to meet criteria for inpatient psychiatric admission for symptom stabilization and safety. Patient will be maintained on current psychotropic medication regimen, with the exception of decreasing Librium, continue to taper down. CIWA protocol with as needed Ativan for alcohol withdrawal symptoms. monitor for medication compliance and for any psychotropic medication side effects. Will continue to monitor ongoing response to treatment. Encouraged participation in milieu.
--- NOTE | 2023-08-11 11:42 | P.PN ---
Progress Note - Text Progress Note Date: 08/11/23 Interval History: Patient was seen in his room and was directable and agreeable to speak with wr iter at the bedside. Patient has papers laid out all over his room, when asked about them, he states they are his case studies. Patient rambles on about the production quality analyst killing his manager medicare marketing, and will put people in senior living to beat and torture them. Patient is having flight of ideas, and making very bizarre statements about judges killing people. Patient denies any alcohol withdraw symptoms. Patient is rambling, and having loose associations. At this time patient denies any suicidal or homicidal ideations, intent or plan. Patient endorses auditory hallucinations, stating he hears the expert voices, denies visual hallucinations and endorses paranoia and delusions. Patient denies any side effects from the medications and has been compliant with meds. Patient is denying any withdrawal symptoms at this time. MENTAL STATUS EXAM: General Appearance: Patient appears to be stated age is alert, directable, and attempts to cooperate. Patient appears to have fair hygiene and grooming. Behavior: Patient is lying down in bed without any agitated behavior. Eye contact is appropriate. Speech: Patient's speech is rambling, loose associations Mood/Affect: Patient reports their mood is "same." Affect is blunted. Suicidality/Homicidality: Patient denies having any homicidal ideation intent or plan. Denies any suicidal ideations intent or plan Perceptions: Patient denies any visual hallucinations, he is endorsing auditory hallucinations claiming that he is hearing expert voices Though content/process: Patient is delusional, flight of ideas, rambling, illogical. Memory and concentration: AOX3, loose associations. Judgment and insight: chronically poor IMPRESSIONS: Schizophrenia Alcohol use disorder Nicotine dependence PLAN: -Patient is admitted under involuntary status to [facility] for stabilization of psychiatric symptoms and safety. Patient is currently on a full ental health treatment order exp 10/09/23 Medications : Prolixin D 25mg IM q 2 weeks, next dose due 08/19/23, will likely need to increase dose of Prolixin D due to patient's severe symptoms. added Prolixin PO 3mg bid for psychosis will continue to titrate up. decrease Librium 10 mg 4 times daily for alcohol withdrawal, plan to taper down. CIWA protocol with as needed Ativan. Depakote to 1000 mg nightly for mood stabilization, trazodone 100 mg nightly as needed for sleep. -Ativan and Haldol PRN for agitation/aggression -NRT - nicotine patch -SW on board for discharge planning. Encourage patient to participate in groups to work on coping skills.
--- NOTE | 2023-08-12 10:31 | P.PN ---
Progress Note - Text Progress Note Date: 08/12/23 Interval History: Patient was seen in his room and was directable and agreeable to speak with wr iter at the bedside. Patient was laying in bed, rambling about having to take 26 pills yesterday, and 16 today. Patient denies any alcohol withdraw symptoms. Patient is rambling. Patient is not going to groups. States he is sleeping "too much" and he is going to the dining chu for meals. At this time patient denies any suicidal or homicidal ideations, intent or plan. Patient endorses auditory hallucinations, stating he hears the voices of 100 different people, denies visual hallucinations and endorses paranoia and delusions. Patient denies any side effects from the medications and has been compliant with meds. MENTAL STATUS EXAM: General Appearance: Patient appears to be stated age is alert, directable, and attempts to cooperate. Patient appears to have fair hygiene and grooming. Behavior: Patient is lying down in bed without any agitated behavior. Eye contact is appropriate. Speech: Patient's speech is rambling, loose associations Mood/Affect: Patient reports their mood is "same." Affect is blunted. Suicidality/Homicidality: Patient denies having any homicidal ideation intent or plan. Denies any suicidal ideations intent or plan Perceptions: Patient denies any visual hallucinations, he is endorsing auditory hallucinations claiming that he is hearing the voices of 100 people Though content/process: Patient is delusional, flight of ideas, rambling, illogical. Memory and concentration: AOX3, loose associations. Judgment and insight: chronically poor IMPRESSIONS: Schizophrenia Alcohol use disorder Nicotine dependence PLAN: -Patient is admitted under involuntary status to [facility] for stabilization of psychiatric symptoms and safety. Patient is currently on a full mental health treatment order exp 10/09/23 Medications : Prolixin D 25mg IM q 2 weeks, next dose due 08/19/23, will likely need to increase dose of Prolixin-D due to patient's severe symptoms. Prolixin PO 3mg bid for psychosis will continue to titrate up. decrease Librium 10 mg 2 times daily for alcohol withdrawal, plan to taper down. CIWA protocol with as needed Ativan. Depakote to 1000 mg nightly for mood stabilization, trazodone 100 mg nightly as needed for sleep. -Ativan and Haldol PRN for agitation/aggression -NRT - nicotine patch -SW on board for discharge planning. Encourage patient to participate in groups to work on coping skills.
--- NOTE | 2023-08-13 11:32 | P.PN ---
Progress Note - Text Progress Note Date: 08/13/23 Interval History: Patient was seen in his room and was directable and agreeable to speak with wr iter at the bedside. Patient was laying in bed, patient states he is tired from taking 16.5 pills a couple hours ago. Patient has papers scattered about his room, with several different things written on them, mostly about judges and attorneys. Patient is endorsing auditory hallucinations, stating he is hearing the professional voices, when asked what they are saying to him, he states they are saying "Professional words, $100 words" Patient then rambled on about 30 focus years. It was unclear what he was talking about. Patient denies any alcohol withdraw symptoms. At this time patient denies any suicidal or homicidal ideations, intent or plan. Patient endorses auditory hallucinations, stating he hears the voices of 100 different people, denies visual hallucinations and endorses paranoia and delusions. Patient denies any side effects from the medications and has been compliant with meds. MENTAL STATUS EXAM: General Appearance: Patient appears to be stated age is alert, directable, and attempts to cooperate. Patient appears to have fair hygiene and grooming. Behavior: Patient is lying down in bed without any agitated behavior. Eye contact is appropriate. Speech: Patient's speech is rambling, loose associations Mood/Affect: Patient reports their mood is "same." Affect is blunted. Suicidality/Homicidality: Patient denies having any homicidal ideation intent or plan. Denies any suicidal ideations intent or plan Perceptions: Patient denies any visual hallucinations, he is endorsing auditory hallucinations claiming that he is hearing the voices of expert people Though content/process: Patient is delusional, flight of ideas, rambling, illogical. Memory and concentration: AOX3, loose associations. Judgment and insight: chronically poor, improving mildly IMPRESSIONS: Schizophrenia Alcohol use disorder Nicotine dependence PLAN: -Patient is admitted under involuntary status to [facility] for stabilization of psychiatric symptoms and safety. Patient is currently on a full mental health treatment order exp 10/09/23 Medications : Prolixin D 25mg IM q 2 weeks, next dose due 08/19/23, will likely need to increase dose of Prolixin-D due to patient's severe symptoms. increase Prolixin PO 5mg bid for psychosis will continue to titrate up. d/c Librium. Depakote to 1000 mg nightly for mood stabilization, trazodone 100 mg nightly as needed for sleep. -Ativan and Haldol PRN for agitation/aggression -NRT - nicotine patch -SW on board for discharge planning. Encourage patient to participate in groups to work on coping skills. Patient will need to be stabilized psychiatrically before discharge. Most likely next week after patient receives a second dose of Prolixin D.
[2023-08-13] MEDS: traZODone HCL 50 MG TAB PO PRN (21:10)
--- NOTE | 2023-08-14 09:05 | P.PN ---
Progress Note - Text Progress Note Date: 08/14/23 Interval History: Patient was seen in his room and was directable and agreeable to speak with wr iter at the bedside. Patient continues to mainly keep to himself in his room. He continues to mention the amount of pills that he talk this morning. She was mildly less delusional today, continues to endorse hearing voices, states that he hears "professional voices" and states that I will always hear them". He continues to be frustrated with publications writer and wants publications writer to spend "at least 30 minutes with me". He also called publications writer a "asshole". Patient continues to ramble, somewhat illogical and loose associations. This is mildly improving. At this time patient denies any suicidal or homicidal ideations, intent or plan. Patient endorses auditory hallucinations, stating he hears the voices of 100 different people, denies visual hallucinations and endorses paranoia and delusions. Patient denies any side effects from the medications and has been compliant with meds. MENTAL STATUS EXAM: General Appearance: Patient appears to be stated age is alert, directable, and attempts to cooperate. Patient appears to have fair hygiene and grooming. Behavior: Patient is lying down in bed without any agitated behavior. Eye contact is appropriate. Speech: Patient's speech is rambling, loose associations Mood/Affect: Patient reports their mood is "same." Affect is blunted. Suicidality/Homicidality: Patient denies having any homicidal ideation intent or plan. Denies any suicidal ideations intent or plan Perceptions: Patient denies any visual hallucinations, he is endorsing auditory hallucinations claiming that he is hearing the voices of expert people Though content/process: Patient is delusional, flight of ideas, rambling, illogical. Memory and concentration: AOX3, loose associations. Judgment and insight: chronically poor, improving mildly IMPRESSIONS: Schizophrenia Alcohol use disorder Nicotine dependence PLAN: -Patient is admitted under involuntary status to [facility] for stabilization of psychiatric symptoms and safety. Patient is currently on a full mental health treatment order exp 10/09/23 Medications : Will reevaluate dose of Prolixin D early next week, at this time we will continue titrating patient's Prolixin PO, increase 6mg bid for psychosis will continue to titrate up as needed. Depakote 1000 mg nightly for mood stabilization, trazodone 100 mg nightly as needed for sleep. -Ativan and Haldol PRN for agitation/aggression -NRT - nicotine patch -SW on board for discharge planning. Encourage patient to participate in groups to work on coping skills. Patient will need to be stabilized psychiatrically before discharge. Most likely next week after patient receives a second dose of Prolixin D, next week hopeful for discharge
--- NOTE | 2023-08-15 18:14 | P.PN ---
Progress Note - Text Progress Note Date: 08/15/23 Interval history: Patient was seen isolating to his room and was focused on shuffling his through his papers. He appears borderline irritable on assessment. He complains of taking too many pills during the day. At this time, patient denies any suicidal or homicidal ideation, intent or plan. He endorses auditory hallucinations, denies command auditory hallucinations. He makes delusional comments about the voices being an expert perinatal technician that charges $200 per hour. Patient denies any side effects from the medications and has been compliant with meds. Mental status exam: General Appearance: Patient appears to be stated age, fair hygiene and grooming Behavior: No agitated behavior. Patient is somewhat irritable. Speech: Patient's speech is fluent and non-pressured. Mood/Affect: Mood is improving mildly, affect is congruent and constricted. Suicidality/Homicidality: Patient denies having any suicidal or homicidal ideation intent or plan. Perceptions: Patient denies visual hallucinations. He endorses auditory hallucinations. Though content/process: There is evidence of any delusional thought content and thought process is somewhat concrete. Memory and concentration: AOX3, grossly intact for the purposes of this session Judgment and insight: chronically poor, improving mildly Assessment/Plan: Continue with current diagnosis. Patient continues to meet criteria for inpatient psychiatric admission for symptom stabilization and safety Increase Prolixin 6 mg po BID to 5 mg po TID for psychosis, in addition to his Prolixin dec injection. Monitor for medication compliance and for any psychotropic medication side effects. Will continue to monitor ongoing response to treatment. Encouraged participation in milieu.
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
--- NOTE | 2023-08-17 21:00 | P.PN ---
Progress Note - Text Progress Note Date: 08/17/23 Interval history: Patient was seen resting in bed today, appears to be catching up on sleep after sleeping only one hour two nights ago. He appears more calm, not irritable, not agitated, however he continues to ask me if I want to see his pile of papers (which he believes has evidence to support his fixed delusions) again today. Per chart, he slept through the night after getting PRN Trazodone at bedtime. At this time, patient denies any suicidal or homicidal ideation, intent or plan. He denies auditory or visual hallucinations today. Patient denies any side effects from the medications and has been compliant with meds. He continues to complain about how many pills he takes each day, however most are vitamins. Mental status exam: General Appearance: Patient appears to be stated age, fair hygiene and grooming, showered Behavior: No agitated behavior. Resting in bed. Speech: Patient's speech is fluent and non-pressured. Mood/Affect: Mood is improving mildly, affect is congruent and constricted. Suicidality/Homicidality: Patient denies having any suicidal or homicidal ideation intent or plan. Perceptions: Patient denies visual hallucinations. He denies auditory hallucinations. Though content/process: There is evidence of any delusional thought content and thought process is concrete. Memory and concentration: AOX3, grossly intact for the purposes of this session Judgment and insight: chronically poor, improving mildly Assessment/Plan: Continue with current diagnosis. Patient continues to meet criteria for inpatient psychiatric admission for symptom stabilization and safety Continue medications at current doses. Monitor for medication compliance and for any psychotropic medication side effects. Will continue to monitor ongoing response to treatment. Encouraged participation in milieu.
--- NOTE | 2023-08-18 21:33 | P.PN ---
Progress Note - Text Progress Note Date: 08/18/23 Interval history: Patient was seen resting today. He appears more calm, withdrawn, continues to isolate to his room mostly and does not attend group. He continues to have delusional thoughts. At this time, patient denies any suicidal or homicidal ideation, intent or plan. He denies auditory or visual hallucinations today. Patient denies any side effects from the medications and has been compliant with meds. His Depakote level this morning is therapeutic at 64.4. Mental status exam: General Appearance: Patient appears to be stated age, fair hygiene and grooming, showered Behavior: No agitated behavior. Resting in bed. Speech: Patient's speech is fluent and non-pressured. Mood/Affect: Mood is improving mildly, affect is congruent and constricted. Suicidality/Homicidality: Patient denies having any suicidal or homicidal ideation intent or plan. Perceptions: Patient denies visual hallucinations. He denies auditory hallucinations. Though content/process: There is evidence of any delusional thought content and thought process is concrete. Memory and concentration: AOX3, grossly intact for the purposes of this session Judgment and insight: chronically poor, improving mildly Assessment/Plan: Continue with current diagnosis. Patient continues to meet criteria for inpatient psychiatric admission for symptom stabilization and safety. Continue medications at current doses. Next Prolixin decanoate injection is due tomorrow; will defer to Dr. Yuen to order dose. Monitor for medication compliance and for any psychotropic medication side effects. Will continue to monitor ongoing response to treatment. Encouraged participation in milieu.
[2023-08-19] MEDS ORDERED: fluPHENAZine DECANOATE 25 MG/ML 5ML MDV IM SCH (09:00)
[2023-08-19 10:57] VITALS: BMI 32.1
--- NOTE | 2023-08-19 12:44 | P.PN ---
Progress Note - Text Progress Note Date: 08/19/23 Interval History: Patient was seen in his room and was directable and agreeable to speak with wr iter at the bedside. Patient continues to keep to himself in his room. He continues to mention the amount of pills that he takes daily. Patient is staying in bed most of the time, and complains of stiffness in his legs. Patient claims that he is concerned because he is fairly tired during the day. Residential Property Manager encouraged patient to get up during the day and move about the unit. Patient seems to be mildly improving with his delusions. He claims the voices are quiet today. At this time patient denies any suicidal or homicidal ideations, intent or plan. Patient denies auditory hallucinations,, denies visual hallucinations and denies paranoia and delusions. Patient denies any side effects from the medications and has been compliant with meds. MENTAL STATUS EXAM: General Appearance: Patient appears to be stated age is alert, directable, and attempts to cooperate. Patient appears to have fair hygiene and grooming. Behavior: Patient is lying down in bed without any agitated behavior. Eye contact is appropriate. Speech: Patient's speech is rambling, loose associations mildly improving Mood/Affect: Patient reports their mood is "same." Affect is blunted. Suicidality/Homicidality: Patient denies having any homicidal ideation intent or plan. Denies any suicidal ideations intent or plan Perceptions: Patient denies any visual hallucinations, denies auditory hallucinations Though content/process: Patient is mildly improving Memory and concentration: AOX3, Judgment and insight: chronically poor, improving mildly IMPRESSIONS: Schizophrenia Alcohol use disorder Nicotine dependence PLAN: -Patient is admitted under involuntary status to [facility] for stabilization of psychiatric symptoms and safety. Patient is currently on a full mental health treatment order exp 10/09/23 Medications : decrease Prolixin PO 2mg tid for psychosis will continue to titrate down. Depakote 1000 mg nightly for mood stabilization, trazodone 100 mg nightly as needed for sleep. will give Prolixin D 37.5 IM today, 08/18, and every 14 days, next dose will be due at [facility] on 09/01 -Ativan and Haldol PRN for agitation/aggression -NRT - nicotine patch - on board for discharge planning. Encourage patient to participate in groups to work on coping skills. Patient will need to be stabilized psychiatrically before discharge. Most likely vs Friday, after patient receives GEE
[2023-08-19] MEDS: fluPHENAZine DECANOATE 25 MG/ML 5ML MDV IM SCH (13:00)
--- NOTE | 2023-08-20 10:29 | P.PN ---
Progress Note - Text Progress Note Date: 08/20/23 Interval History: Patient was seen in his room and was directable and agreeable to speak with wr iter at the bedside. Patient claims he is doing pretty good today. He complains of low energy, stating that is why he does not attend groups. He also claims to have an upset stomach. He is ruminating on the amount of pills he takes daily. Patient states that he is having regular bowel movements. He claims his appetite is good, and that he sleeps "too much" Patient seems to be mildly improving wi th his delusions. Patient encouraged to get out of bed more during the day and attend groups. Patient does not go to any groups, and stays secluded in his room. At this time patient denies any suicidal or homicidal ideations, intent or plan. Patient endorses auditory hallucinations, stating he hears expert technical services assistant words, denies visual hallucinations and denies paranoia and delusions. Patient denies any side effects from the medications and has been compliant with meds. MENTAL STATUS EXAM: General Appearance: Patient appears to be stated age is alert, directable, and attempts to cooperate. Patient appears to have fair hygiene and grooming. Behavior: Patient is lying down in bed without any agitated behavior. Eye contact is appropriate. Speech: Patient's speech is rambling, loose associations mildly improving Mood/Affect: Patient reports their mood is "same." Affect is blunted. Suicidality/Homicidality: Patient denies having any homicidal ideation intent or plan. Denies any suicidal ideations intent or plan Perceptions: Patient denies any visual hallucinations, endorses auditory hallucinations Though content/process: Patient is mildly improving Memory and concentration: AOX3, Judgment and insight: chronically poor, improving mildly IMPRESSIONS: Schizophrenia Alcohol use disorder Nicotine dependence PLAN: -Patient is admitted under involuntary status to [facility] for stabilization of psychiatric symptoms and safety. Patient is currently on a full mental health treatment order exp 10/09/23 Medications : discontinue Prolixin 2mg after tonights dose. Depakote 1000 mg nightly for mood stabilization, trazodone 100 mg nightly as needed for sleep. Prolixin D 37.5 IM last received 08/18, and every 14 days, next dose will be due at [facility] on 09/01 -Ativan and Haldol PRN for agitation/aggression -NRT - nicotine patch -SW on board for discharge planning. Encourage patient to participate in groups to work on coping skills. Patient will need to be stabilized psychiatrically before discharge. Most likely vs Friday
--- NOTE | 2023-08-21 09:38 | P.PN ---
Progress Note - Text Progress Note Date: 08/21/23 Interval History: Patient was seen in his room and was directable and agreeable to speak with wr iter at the bedside. Patient claims he is tired today. National Sales Trainer will d/c trazodone due to his sedation during the day. He continues to ruminate on the amount of pills he takes daily. National Sales Trainer will order a BMP and CBC with diff to check patients levels. Patient states that he is showering every 2 days. Patient appears less delusional today. Patient continues to be encouraged to get out of bed more during the day and attend groups. Patient does not go to any groups, and stays secluded in his room. At this time patient denies any suicidal or homicidal ideations, intent or plan. Patient endorses auditory hallucinations, stating he hears expert compliance attorney words, denies visual hallucinations and denies paranoia and delusions. Patient denies any side effects from the medications and has been compliant with meds. MENTAL STATUS EXAM: General Appearance: Patient appears to be stated age is alert, directable, and attempts to cooperate. Patient appears to have fair hygiene and grooming. Behavior: Patient is lying down in bed without any agitated behavior. Eye contact is appropriate. Speech: Patient's speech is rambling, loose associations mildly improving Mood/Affect: Patient reports their mood is "tired." Affect is blunted. mildly improving Suicidality/Homicidality: Patient denies having any homicidal ideation intent or plan. Denies any suicidal ideations intent or plan Perceptions: Patient denies any visual hallucinations, endorses auditory hallucinations Though content/process: Patient is mildly improving Memory and concentration: AOX3, Judgment and insight: chronically poor, improving mildly IMPRESSIONS: Schizophrenia Alcohol use disorder Nicotine dependence PLAN: -Patient is admitted under involuntary status to [facility] for stabilization of psychiatric symptoms and safety. Patient is currently on a full mental health treatment order exp 10/09/23. Order CBC with diff and BMP for tomorrow morning Medications : d/c PO Prolixin, Depakote 1000 mg nightly for mood stabilization, d/c trazodone due to sedation during the day. Prolixin D 37.5 IM last received 08/18, and every 14 days, next dose will be due at [facility] on 09/01 -Ativan and Haldol PRN for agitation/aggression -NRT - nicotine patch -SW on board for discharge planning. Encourage patient to participate in groups to work on coping skills. Patient will need to be stabilized psychiatrically before discharge. Most likely friday vs friday
[2023-08-21] MEDS: diphenhydrAMINE 50 MG CAP PO STA (20:17)
[2023-08-22 11:05] LABS: Basophils # (A) 0.1 k/uL (0-0.2); Basophils % (A) 1 %; Eosinophils # (A) 0.2 k/uL (0-0.7); Eosinophils % (A) 3 %; HCT 43.2 % (39.0-53.0); HGB 14.6 gm/dL (13.0-17.5); Lymphocytes # (A) 1.2 k/uL (1.0-4.8); Lymphocytes % (A) 18 %; MCH 31.8 pg (25.0-35.0); MCHC 33.7 g/dL (31.0-37.0); MCV 94.1 fL (80.0-100.0); Mean Platelet Volume 8.3; Monocytes # (A) 0.6 k/uL (0-1.0); Monocytes % (A) 10 %; Neutrophils # (A) 4.2 k/uL (1.3-7.7); Neutrophils % (A) 64 %; Platelet Count 233 k/uL (150-450); RBC 4.59 m/uL (4.30-5.90); RDW 13.1 % (11.5-15.5); WBC 6.5 k/uL (3.8-10.6)
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
[2023-08-22 11:12] LABS: African American GFR (CKD) >90 (>60 ml/min/1.73 sqM); Anion Gap 5 mmol/L; Blood Urea Nitrogen 13 mg/dL (9-20); Carbon Dioxide 28 mmol/L (22-30); Chloride 96 mmol/L (98-107); Glucose 95 mg/dL (74-99); Non-African American GFR(CKD) >90 (>60 ml/min/1.73 sqM); Potassium 4.4 mmol/L (3.5-5.1); Sodium 129 mmol/L (137-145)
[2023-08-22] MEDS: diphenhydrAMINE 25 MG CAP PO SCH (12:29)
[2023-08-22] MEDS: HYDROCORTISONE 1% CREAM 30 GM TUBE TOPICAL PRN (21:03)
[2023-08-23 06:25] VITALS: RESP 15; TEMP 97.7
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
[2023-08-24 11:38] VITALS: BP 102/63; PULSE 68
[2023-08-24 19:03] LABS: African American GFR (CKD) >90 (>60 ml/min/1.73 sqM); Anion Gap 7 mmol/L; Blood Urea Nitrogen 9 mg/dL (9-20); Calcium 8.8 mg/dL (8.4-10.2); Carbon Dioxide 26 mmol/L (22-30); Chloride 83 mmol/L (98-107); Glucose 106 mg/dL (74-99); Magnesium 1.5 mg/dL (1.6-2.3); Non-African American GFR(CKD) >90 (>60 ml/min/1.73 sqM); Potassium 4.6 mmol/L (3.5-5.1)
[2023-08-24 19:06] LABS: Sodium 116 mmol/L (137-145)
--- NOTE | 2023-08-26 06:42 | CDI ---
Documentation Clarification Form Date: 08/26/2023 From: Taylor Avalos Admit Date: 08/08/2023 04:11:00 PM Patient Name: Tin Askew Visit Number: [id number] Discharge Date: 08/24/2023 07:45:00 PM ATTENTION: The Clinical Documentation Specialists (CDI) and [facility] Coding Staff appreciate your assistance in clarifying documentation. Please respond to the clarification below the line at the bottom and electronically sign. The CDI & [facility] Coding staff will review the response and follow-up if needed. Please note: Queries are made part of the Legal Health Record. If you have any questions, please contact the author of this message via ITS. Dr. Delisa Jaffe, Your patient has a low sodium of 116 on 08/23. Based on this information and the findings below, is there an additional diagnosis that is clinically appropriate for this patient? Patient history/risk factors: schizophrenia, alcoholic dependence, depression and anxiety Clinical Indicators: Sodium came back as low at 116. He was transferred to acute care. Treatment: quality assurance monitor, magnesium daily, transfer to acute care Is there an additional diagnosis that is clinically appropriate for this patient? [x] Hyponatremia [ ] No additional diagnosis/Not clinically significant [ ] Unable to determine [ ] Other, please specify MTDD
== END 2023-08-24 19:45 | disposition short-term general hospital (02) | DRG 885 ==
LOC: EC 16:04 → 3MHU 08-08 16:11
PROVIDERS: ADMIT Psychiatry & Neurology Psychiatry; ATTEND Psychiatry & Neurology Psychiatry
DX: F20.9 Schizophrenia, unspecified (principal); E87.1 Hypo-osmolality and hyponatremia; F10.20 Alcohol dependence, uncomplicated; Z91.128 Patient's intentional underdosing of medication regimen for other reason; F32.A Depression, unspecified; I10 Essential (primary) hypertension; Z11.52 Encounter for screening for COVID-19; T50.906A Underdosing of unspecified drugs, medicaments and biological substances, initial encounter; F41.9 Anxiety disorder, unspecified; R21 Rash and other nonspecific skin eruption; K21.9 Gastro-esophageal reflux disease without esophagitis; I83.90 Asymptomatic varicose veins of unspecified lower extremity; K57.90 Diverticulosis of intestine, part unspecified, without perforation or abscess without bleeding; I99.9 Unspecified disorder of circulatory system; Z59.819 Housing instability, housed unspecified; Z79.82 Long term (current) use of aspirin; Z79.899 Other long term (current) drug therapy; Z56.0 Unemployment, unspecified; Z71.6 Tobacco abuse counseling; Z88.8 Allergy status to other drugs, medicaments and biological substances
CPT/HCPCS: 36415; 80048; 80053; 80061; 80076; 80164; 80306; 82075; 83036; 83735; 84443; 85025; 87635; 99285

== ENCOUNTER 2023-08-24 19:37 | Inpatient (IN) | payer MEDICARE, OTHER ==
[2023-08-24] MEDS ORDERED: ALPRAZolam 0.25 MG TAB PO PRN (21:52)
[2023-08-24] MEDS ORDERED: NALOXONE 0.4 MG/ML 1 ML VIAL IV PRN (21:52)
[2023-08-24] MEDS ORDERED: ONDANSETRON 4 MG/2 ML VIAL IVP PRN (21:52)
[2023-08-24] MEDS ORDERED: ACETAMINOPHEN TAB 325 MG TAB PO PRN (21:52)
[2023-08-24] MEDS ORDERED: MELATONIN 3 MG TABLET PO PRN (21:52)
[2023-08-24] MEDS: MAGNESIUM SULFATE-D5W PMX 1 GM in DEXTROSE/WATER 1 100ML.BAG IVPB SCH (23:32)
[2023-08-24] MEDS: SODIUM CHLORIDE 0.9% 1,000 ML IV SCH (23:33)
--- NOTE | 2023-08-25 01:08 | P.HPIM ---
History of Present Illness H&P Date: 08/24/23 Chief Complaint: Hyponatremia 57-year-old male with schizophrenia hypertension Patient has been admitted to the mental health unit for psychosis with history of schizophrenia currently under the management of psychiatry. I was notified to evaluate patient due to severe hyponatremia, patient is asymptomatic no reported seizure-like activity no falls patient denies any focal neurodeficits or weakness. Patient denies any changes in his urinary output. Upon reviewing patient medications he is currently on Depakote and as needed Haldol both of which could result in hyponatremia Otherwise patient provides very limited history denies any complaints at this point review of systems Pertinent positives as noted in HPI. All other systems were reviewed and are negative on exam Constitutional: No acute distress, cooperative Eyes: Anicteric sclerae, moist conjunctiva, Pupils equal round reactive to light ENMT: NC/AT Oropharynx clear, no erythema, or exudates Neck: Supple, no masses, or JVD No carotid bruits No thyromegaly Lungs: Clear to auscultation Clear to percussion Normal respiratory effort, no accessory muscle use Cardiovascular: Heart regular in rate and rhythm, No murmurs, gallops, or rubs No peripheral edema Abdominal: Soft Nontender, no guarding, rebound or rigidity Abdomen moving with respiration Normoactive bowel sounds Extremities: No digital cyanosis No clubbing Pedal pulses intact and symmetrical Radial pulses intact and symmetrical No calf tenderness Psychiatric: Alert and oriented to person, place and time Neuro Muscles Strength 5/5 in all 4 extremities Sensation to light touch grossly present throughout Cranial nerves II-XII grossly intact Past Medical History Past Medical History: GERD/Reflux, Hypertension, Vascular Disorder Additional Past Medical History / Comment(s): ETOH abuse, alcohol withdrawl with tremens, diverticular disease, benign colon polyp, varicose veins. History of Any Multi-Drug Resistant Organisms: None Reported Past Surgical History: No Surgical Hx Reported Additional Past Surgical History / Comment(s): Teeth extractions, colonoscopies. Past Anesthesia/Blood Transfusion Reactions: No Reported Reaction Additional Past Anesthesia/Blood Transfusion Reaction / Comment(s): Never had Smoking Status: Never smoker - Past Family History Father Family Medical History: Myocardial Infarction ([place]) Additional Family Medical History / Comment(s): AT AGE 58 FROM [place] Mother Family Medical History: Deep Vein Thrombosis (DVT), Hypertension Additional Family Medical History / Comment(s): PRIMARY PULMONARY HYPERTENSION Medications and Allergies Home Medications Medication Instructions Recorded Confirmed Type Aspirin 81 mg PO DAILY 30 Days tab 01/29/21 08/24/23 Rx atenoloL [Tenormin] 50 mg PO BID 08/03/22 08/24/23 History fluPHENAZine decanoate [Prolixin 25 mg IM Q14D 08/03/22 08/24/23 History Decanoate] Pantoprazole Sodium [Protonix] 40 mg PO DAILY #15 tab 08/05/22 08/24/23 Rx Acetaminophen Tab [Tylenol] 650 mg PO TID PRN 08/07/23 08/24/23 History Cholecalciferol [Vitamin D3 (125 125 mcg PO DAILY 08/07/23 08/24/23 History Mcg = 5000 Iu)] Divalproex ER [Depakote ER] 500 mg PO BID 08/07/23 08/24/23 History Loratadine [Claritin] 10 mg PO DAILY 08/07/23 08/24/23 History Potassium Chloride ER [K-Dur 10] 10 meq PO DAILY 08/07/23 08/24/23 History Sodium Bicarbonate Tab 650 mg PO DAILY 08/07/23 08/24/23 History Sodium Chloride Tab 1 gm PO DAILY 08/07/23 08/24/23 History amLODIPine [Norvasc] 10 mg PO DAILY 08/07/23 08/24/23 History fluPHENAZine HCl 10 mg PO HS 08/07/23 08/24/23 History Allergies Allergy/AdvReac Type Severity Reaction Status Date / Time clozapine AdvReac Hypotension Verified 08/24/23 20:37 /Diarrhea Physical Exam Vitals: Intake and Output 08/24/23 08/24/23 08/24/23 06:59 14:59 22:59 Other: Weight 95.3 kg Results CBC & Chem 7: 08/24/23 22:58 Assessment and Plan Assessment: 57-year-old male has been admitted to the mental health unit secondary to schizophrenia I was notified today due to severe hyponatremia on blood work with sodium of 116 patient asymptomatic, case was discussed with the mental health unit patient will be transferred to the medical unit for close monitoring of his sodium with anticipated length of stay more than 2 midnights Severe hyponatremia Suspected secondary to Depakote ER, Haldol as needed, will hold for now Psych evaluation Check sodium level every 4 hours goal sodium correction is 8 mEq per 24 hours with rapid correction to 120 initially IV fluid hydration normal saline 150 cc/h, readjust according to sodium levels Monitor vital signs Fall precautions Seizure precautions Neurochecks every 2 hours Sodium 116 potassium 4.6 BUN 9 creatinine 0.6 Magnesium 1.5 Hypertension Continue amlodipine Blood pressure control Schizophrenia under management of psychiatry Reconsult mental health unit for further recommendations and evaluation Full code DVT prophylaxis heparin subcu 3 times daily
[2023-08-25 04:28] LABS: ALT 20 U/L (4-49); AST 31 U/L (17-59); African American GFR (CKD) >90 (>60 ml/min/1.73 sqM); Albumin 4.2 g/dL (3.5-5.0); Alkaline Phosphatase 66 U/L (38-126); Anion Gap 7 mmol/L; Blood Urea Nitrogen 7 mg/dL (9-20); Calcium 8.6 mg/dL (8.4-10.2); Carbon Dioxide 24 mmol/L (22-30); Chloride 94 mmol/L (98-107); Glucose 91 mg/dL (74-99); Magnesium 2.3 mg/dL (1.6-2.3); Non-African American GFR(CKD) >90 (>60 ml/min/1.73 sqM); Potassium 3.7 mmol/L (3.5-5.1); Sodium 125 mmol/L (137-145); Total Bilirubin 1.8 mg/dL (0.2-1.3)
[2023-08-25 04:32] LABS: Basophils % (A) 0 %; Eosinophils # (A) 0.1 k/uL (0-0.7); Eosinophils % (A) 2 %; HCT 39.8 % (39.0-53.0); HGB 14.3 gm/dL (13.0-17.5); Hyperchromasia Slight; Lymphocytes # (A) 1.3 k/uL (1.0-4.8); Lymphocytes % (A) 21 %; MCH 32.3 pg (25.0-35.0); MCV 89.8 fL (80.0-100.0); Mean Platelet Volume 8.2; Monocytes # (A) 0.8 k/uL (0-1.0); Monocytes % (A) 13 %; Neutrophils # (A) 3.7 k/uL (1.3-7.7); Neutrophils % (A) 61 %; Platelet Count 194 k/uL (150-450); RBC 4.43 m/uL (4.30-5.90); RDW 13.1 % (11.5-15.5); WBC 6.2 k/uL (3.8-10.6)
[2023-08-25] MEDS: PANTOPRAZOLE 40 MG TABLET PO SCH (07:46)
[2023-08-25] MEDS: ASPIRIN 81 MG PO SCH (07:47)
[2023-08-25] MEDS: ENOXAPARIN 40 MG/0.4 ML SYRINGE SQ SCH (07:47)
[2023-08-25] MEDS: amLODIPine 10 MG TAB PO SCH (07:47)
--- NOTE | 2023-08-25 11:53 | P.NPCON ---
History of Present Illness - Reason for Consult hyponatremia - History of Present Illness Reason for consultation: Hyponatremia History of present illness: Patient is a 57-year-old male seen in renal consultation for hyponatremia. Patient was at the inpatient psychiatric unit and was being managed for sc hizophrenia. Patient had blood work done yesterday and sodium was noted to be low at 116. This was dated for August 24, 2023 at 6:23 PM. Patient was subsequently transferred to medical floor. He is currently receiving normal saline at 75 cc an hour. Sodium level as of 320 and this morning was 124. Sodium level dated August 22, 2023 at 10:30 AM was 129. Patient denies history of diabetes. Patient denies history of coronary artery disease. Denies gross hematuria or dysuria. Denies history of kidney disease. Patient states he does drink quite a bit of fluids. Patient states he mostly drinks rum and coke. Patient states he drinks a half a gallon of from with 4-6 2 L bottles of Diet Co ke every 2 to 3 days. He denies drinking much water. Does admit to drinking juice occasionally as well as milk. Denies history of malignancy. No chest pain or shortness of breath. Patient was also receiving Depakote which is currently held. Vital signs are stable. General: No acute distress. HEENT: Head exam is unremarkable. LUNGS: No audible rhonchi or wheezes. HEART: Rate and Rhythm are regular. ABDOMEN: Nontender. EXTREMITITES: No edema. Past Medical History Past Medical History: GERD/Reflux, Hypertension, Vascular Disorder Additional Past Medical History / Comment(s): ETOH abuse, alcohol withdrawl with tremens, diverticular disease, benign colon polyp, varicose veins. History of Any Multi-Drug Resistant Organisms: None Reported Past Surgical History: No Surgical Hx Reported Additional Past Surgical History / Comment(s): Teeth extractions, colonoscopies. Past Anesthesia/Blood Transfusion Reactions: No Reported Reaction Additional Past Anesthesia/Blood Transfusion Reaction / Comment(s): Never had Past Psychological History: Anxiety, Depression, Schizophrenia Additional Psychological History / Comment(s): Pt does not drive, his brother drives him or he takes the bus. He goes to [facility]. He manages his own medications. Smoking Status: Never smoker Past Alcohol Use History: Heavy Additional Past Alcohol Use History / Comment(s): Pt has ETOH abuse Past Drug Use History: None Reported - Past Family History Father Family Medical History: Myocardial Infarction ([place]) Additional Family Medical History / Comment(s): AT AGE 58 FROM [place] Mother Family Medical History: Deep Vein Thrombosis (DVT), Hypertension Additional Family Medical History / Comment(s): PRIMARY PULMONARY HYPERTENSION Medications and Allergies Home Medications Medication Instructions Recorded Confirmed Type Aspirin 81 mg PO DAILY 30 Days tab 01/29/21 08/24/23 Rx atenoloL [Tenormin] 50 mg PO BID 08/03/22 08/24/23 History fluPHENAZine decanoate [Prolixin 25 mg IM Q14D 08/03/22 08/24/23 History Decanoate] Pantoprazole Sodium [Protonix] 40 mg PO DAILY #15 tab 08/05/22 08/24/23 Rx Acetaminophen Tab [Tylenol] 650 mg PO TID PRN 08/07/23 08/24/23 History Cholecalciferol [Vitamin D3 (125 125 mcg PO DAILY 08/07/23 08/24/23 History Mcg = 5000 Iu)] Divalproex ER [Depakote ER] 500 mg PO BID 08/07/23 08/24/23 History Loratadine [Claritin] 10 mg PO DAILY 08/07/23 08/24/23 History Potassium Chloride ER [K-Dur 10] 10 meq PO DAILY 08/07/23 08/24/23 History Sodium Bicarbonate Tab 650 mg PO DAILY 08/07/23 08/24/23 History Sodium Chloride Tab 1 gm PO DAILY 08/07/23 08/24/23 History amLODIPine [Norvasc] 10 mg PO DAILY 08/07/23 08/24/23 History fluPHENAZine HCl 10 mg PO HS 08/07/23 08/24/23 History Allergies Allergy/AdvReac Type Severity Reaction Status Date / Time clozapine AdvReac Hypotension Verified 08/24/23 20:37 /Diarrhea Physical Exam Vitals: Vital Signs Temp Pulse Resp BP Pulse Ox 08/25/23 07:41 97.9 F 65 16 130/81 97 08/25/23 04:00 80 18 120/74 97 08/25/23 02:00 97.8 F 82 18 117/68 98 08/24/23 21:52 84 18 122/75 98 Intake and Output 08/24/23 08/25/23 08/25/23 22:59 06:59 14:59 Intake Total 0 Balance 0 Intake: Oral 0 Other: Voiding Method Toilet # Voids 4 1 Weight 95.3 kg 95.3 kg Results - Lab Results Most recent lab results Calcium 8.6 mg/dL (8.4-10.2) 08/25/23 03:20 Magnesium 2.3 mg/dL (1.6-2.3) 08/25/23 03:20 08/25/23 03:20 08/25/23 03:20 Assessment and Plan Plan: Assessment: 1. Hyponatremia secondary to poor solute intake and excessive fluid intake. 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 Hyponatremia is further worsen with the use of Depakote which is now held. This appears to be acute hyponatremia as sodium level August 22, 2023 at 10:30 AM was 129 and was low at 116 on August 24, 2023 at 6:30 PM. Sodium level this morning was 124. 2. Schizophrenia. 3. Benign hypertension. Controlled. Plan: Hep-Lock IV fluids. Check sodium level stat now. Depakote is currently held. Check serum and urine osmolality and urine sodium level. Check TSH. Will apply fluid restriction depending on the neck sodium level. Thank you for the consultation. I will continue to follow the patient with you during his hospital stay.
--- NOTE | 2023-08-25 13:49 | P.PN ---
Subjective Progress Note Date: 08/25/23 Principal diagnosis: hyponatremia Hospital course Patient is a 57-year-old male with schizophrenia and hypertension who was admitted to the mental health unit for psychosis with a history of schizophrenia. Patient's labs while he was in the psychiatry unit showed severe hyponatremia. Patient otherwise is asymptomatic. In the psych unit patient was getting Depakote and Haldol. Patient was transferred to the medical floor. He was started on normal saline fluids and Depakote and Haldol were discontinued. Patient's sodium levels were improving. Patient was seen by nephrology who stopped the fluids and started patient on fluid restriction for treatment of possible polydipsia hyponatremia. HPI Patient denying any acute complaints. He denies homicidal or suicidal ideation. He denies any nausea or vomiting. Physical exam General examination - Alert and Oriented 3 in NAD Heart - + S1S2 no murmurs Lungs - Clear to auscultation Abdomen soft NT ND +ve BS Extremities - No edema WIRE WELDER - Moving all 4 extremities spontaneously Psych - Calm and cooperative Assessment and plan Severe hyponatremia Because of patient's history of schizophrenia this likely is polydipsia related hyponatremia. Patient psych meds could also be contributing which include Depakote and Haldol. Will hold off on Depakote and Haldol. Psychiatry to adjust his psychiatric regimen Trend sodium level every 4 hours Nephrology on board and stopped fluids and started patient on fluid restriction Sodium is improving Check TSH Check serum osmolarity and urine osmolarity Hypomagnesemia Replete as needed Hypertension Continue with amlodipine Blood pressure controlled Schizophrenia Management as per psychiatry DVT prophylaxis: Subcu heparin Objective - Vital Signs Vital signs: Vital Signs Temp 97.9 F 08/25/23 07:41 Pulse 75 08/25/23 13:33 Resp 16 08/25/23 11:27 BP 141/88 08/25/23 11:27 Pulse Ox 99 08/25/23 11:27 FiO2 Intake & Output 08/24/23 08/25/23 08/25/23 18:59 06:59 18:59 Intake Total 200 Balance 200 Weight 95.3 kg Intake: Oral 200 Other: Voiding Method Toilet # Voids 4 1 - Labs CBC & Chem 7: 08/25/23 03:20 08/25/23 03:20 Labs: Abnormal Lab Results - Last 24 Hours (Table) 08/24/23 08/25/23 08/25/23 Range/Units 22:58 03:20 03:20 Sodium 122 L 125 L 124 L (137-145) mmol/L Chloride 94 L (98-107) mmol/L BUN 7 L (9-20) mg/dL Creatinine 0.54 L (0.66-1.25) mg/dL Total Bilirubin 1.8 H (0.2-1.3) mg/dL
[2023-08-25 14:30] LABS: Sodium 123 mmol/L (137-145)
[2023-08-25] MEDS ORDERED: OLANZapine 10 MG VIAL IM PRN (15:29)
--- NOTE | 2023-08-25 15:29 | P.CN ---
Psychiatric Consult - . Consult date: 08/25/23 Consult:: 08/25/23 14:10 IDENTIFYING DATA: Patient is a 57-year-old single, on SSD, male with a significant history of schizophrenia and alcohol use disorder. HPI: Patient was initially seen on the psychiatric unit and as per HPI on admission "patient presented to the hospital on a petition. Patient has a history of schizophrenia, currently follows up at [facility]. He also has history of alcohol use disorder. He apparently was having flight of ideas, delusions and admitting to alcohol abuse. Patient also admitted to hearing voices in the ER. Urine drug screen was negative. Petition claims that "Tin is presenting with symptoms of paranoia believing this staff wants to bash his T10. His safety is at risk due to poor judgment. He is not taking oral medications. Very angry yelling. Police informed this pattern chart writer that Tin called "[employer]" insurance company threatening to send a bomb via drone. He was naked when police arrived". Patient has had several inpatient psychiatric admissions. He was s een laying in his bed today. He was agreeable to speak to pattern chart writer. He states that he is feeling tired. He was rambling, claims that he "swallowed 14 pills". He spoke about the shop estimator's department and "[employer]" conspiring against him. He was fairly illogical had loose associations. He believes that the solar resource assessor is a potential "spot". He also spoke significantly about "[employer] [facility] however was rambling. He does not believe he needs medications, he states that he lives in a mansion at this time. Has a flight of ideas. Racing thoughts. Denying any withdrawal symptoms at this time no shakes. Claims that he is hearing voices claims that they are "radiofrequencies". Denies any visual hallucinations. Denies any suicidal homicidal ideations intent or plan. He does claim that he drinks "only expensive alcohol" however did not specify how much and when his last drink was." Patient was seen today for psychiatric consultation on the medical floors for continued psychiatric care. Patient was up and looking through his papers. He claims that he is doing "all right" and claims that he is feeling less lethargic today. He states that he has been tolerating the medications fairly well now. Claims that the rash on his leg has been improving. He states that he is not feeling lethargic today feeling like he has more energy. He claims that he is still hearing some voices at this time and claims that they are "expert witnesses". He states that he is not having visual hallucinations. Denying any suicidal homicidal ideations intent or plan. Claims that he has been sleeping on and off, appetite has been on and off. PAST PSYCHIATRIC HISTORY: Patient has been previously diagnosed with schizophrenia and alcohol use disorder. The patient is currently on a regimen of Prolixin Decanoate and oral Prolixin. S patient was previously on Depakote. The patient has had multiple inpatient psychiatric admissions with his last time being in February 2022. He is currently open with [facility]. Patient has no reported previous suicide attempts. PMH: Past Medical History: GERD/Reflux, Hypertension, Vascular Disorder Additional Past Medical History / Comment(s): ETOH abuse, alcohol withdrawl with tremens, diverticular disease, benign colon polyp, varicose veins. History of Any Multi-Drug Resistant Organisms: None Reported Past Surgical History: No Surgical Hx Reported Additional Past Surgical History / Comment(s): Teeth extractions, colonoscopies. Past Anesthesia/Blood Transfusion Reactions: No Reported Reaction Additional Past Anesthesia/Blood Transfusion Reaction / Comment(s): Never had Past Psychological History: Anxiety, Depression, Schizophrenia Smoking Status: Never smoker Past Alcohol Use History: Heavy Past Drug Use History: None Reported ALLERGIES: NO KNOWN DRUG ALLERGIES CHEMICAL DEPENDENCY HISTORY: Unknown, patient had a negative urine drug screen. He has a history of alcohol use disorder FAMILY PSYCHIATRIC/SUBSTANCE USE HISTORY: No reported family psychiatric history. One of his cousins reportedly committed suicide by carbon monoxide poisoning. SOCIAL HISTORY: Patient was born and raised in [place] by his parents. He currently lives by himself. He is unemployed and receives Social Security disability. He attended some college. MENTAL STATUS EXAM: General Appearance: Patient appears to be stated age is alert, directable, and attempts to cooperate. Patient appears to have fair hygiene and grooming. Behavior: Patient is lying down in bed without any agitated behavior. Eye contact is appropriate. Speech: Patient's speech is rambling, loose associations Mood/Affect: Patient reports their mood is "ok" Affect is blunted. Improving mildly Suicidality/Homicidality: Patient denies having any homicidal ideation intent or plan. Denies any suicidal ideations intent or plan Perceptions: Patient denies any visual hallucinations, he is endorsing auditory hallucinations claiming that he is hearing "expert witnesses" Though content/process: Patient is delusional, improving, less preoccupied with time. Memory and concentration: AOX3, grossly intact for the purposes of this session. Cannot spell "WORLD" backwards Judgment and insight: chronically poor, improving mildly STRENGTHS/WEAKNESSES: Strength is that the patient is resilient. Weakness is that the patient engaged in heavy substance abuse and has very treatment resistant schizophrenia. INTELLECT: average IMPRESSIONS: Schizophrenia Alcohol use disorder Nicotine dependence PLAN: -Patient is currently on a full mental health treatment order exp 10/09/23, therefore must take psychiatric medications. -Patient DOES NOT have decision making capacity at this time and is unable to reason through and communicate/appreciate the risks, benefits and alternatives to treatment. -Would recommend the following medication changes/additions: Discontinue Depako te. Patient received Prolixin D 37.5 mg IM on 08/18, next dose will be due on 09/01 every 2 weeks. Will start patient on propranolol 20 mg daily for akathisia/restlessness, seroquel 50 mg nightly for mood stabilization/psychosis adjunct/sleep, if patient refuses PO seroquel then please give zyprexa IM due to patient being on a court order -Continue your medical management for patient's hyponatremia and underlying medical comorbidities. -Communicated plan to patient's nurse -Will continue to follow along tomorrow. -Please contact with any questions. 08/25/23 15:23 08/25/23 15:26
[2023-08-25] MEDS: PROPRANOLOL 20 MG TAB PO SCH (15:57)
[2023-08-25] MEDS: DEXTROSE 5% IN WATER 1,000 ML IV SCH (19:03)
[2023-08-25] MEDS: QUEtiapine 50 MG TAB PO SCH (21:07)
--- NOTE | 2023-08-26 07:33 | P.PN ---
Subjective Progress Note Date: 08/26/23 57-year-old male with schizophrenia, h/o EtOH abuse, GERD and hypertension who was admitted to the mental health unit for psychosis with a history of schizophrenia. Patient's labs while he was in the psychiatry unit showed severe hyponatremia. Patient otherwise is asymptomatic. In the psych unit patient was getting Depakote and Haldol. Patient was transferred to the medical floor. He was started on normal saline fluids and Depakote and Haldol were discontinued. Patient's sodium levels were improving. Patient was seen by nephrology who stopped the fluids and started patient on fluid restriction for treatment of possible polydipsia hyponatremia. 08/25 Patient was seen and examined. Pacing the room. Most recent sodim is 126. His sodium on admission was 122. UOsm 43. Sarkis < 20. BMP, Mag, TSH pending this morning. General: non toxic, no distress, appears at stated age Derm: warm, dry Head: atraumatic, normocephalic, symmetric Eyes: EOMI, no lid lag, anicteric sclera Mouth: no lip lesion, mucus membranes moist Cardiovascular: good distal perfusion in all 4 extremities Lungs: breathing comfortably, no rhonchi, no rales , no accessory muscle use Ext: no gross muscle atrophy, no edema, no contractures Neuro: no focal neuro deficits Psych: Alert, oriented, appropriate affect Based on my assessment of this patient, this patient meets a high complexity level of care. Patient has an acute diagnosis of severe hyponatremia that poses a threat to life or bodily function. Severe acute hypotonic hyponatremia: Low urine and serum osmolality, low Sarkis. Concerns for polydipsia. Fluid restriction added. Patient psych meds could also be contributing which include Depakote and Haldol. TSH ordered by Nephrology. Fall precautions. Advanced neurochecks. Nephrology following. Hypertension: Amlodipine 10 mg PO QD. Schizophrenia: Seroquel 50 mg PO QHS. Psychiatry on board. CODE STATUS: FULL CODE. DVT Prophylaxis: Lovenox. GI Prophylaxis: Protonix PO Designated medical POA if patient is not able to make medical decisions for themselves: I have reviewed the following [employer] consultant notes: Nephrology, Psyc I have reviewed the results of the following tests: UOsm, Sarkis, Na. I have ordered the following tests: BMP, TSH, Mag pending. I have discussed the care of this patient with the following independent historian: I have independently interpreted the following test below: I have discussed the management of this patient with the following physician: Objective - Vital Signs Vital signs: Vital Signs Temp 98.1 F 08/26/23 03:57 Pulse 92 08/26/23 03:57 Resp 16 08/26/23 03:57 BP 141/90 08/26/23 03:57 Pulse Ox 96 08/26/23 03:57 FiO2 Intake & Output 08/25/23 08/25/23 08/26/23 06:59 18:59 06:59 Intake Total 310 Balance 310 Weight 95.3 kg Intake: Oral 310 Other: Voiding Method Toilet Toilet # Voids 4 3 - Labs CBC & Chem 7: 08/25/23 03:20 08/26/23 00:56 Labs: Abnormal Lab Results - Last 24 Hours (Table) 08/25/23 08/25/23 08/25/23 Range/Units 12:59 12:59 14:07 Sodium 123 L (137-145) mmol/L Osmolality 254 L (275-295) mOsm/kg Urine Osmolality 43 L (400-1100) mOsm/kg Ur Random Sodium <20 L (40-220) mmol/L 08/25/23 08/25/23 08/26/23 Range/Units 18:02 21:07 00:56 Sodium 126 L 128 L 126 L (137-145) mmol/L Osmolality (275-295) mOsm/kg Urine Osmolality (400-1100) mOsm/kg Ur Random Sodium (40-220) mmol/L
--- NOTE | 2023-08-26 10:54 | P.PN ---
Subjective Patient is seen in follow-up for hyponatremia. Patient received D5W yesterday and overnight to prevent rapid correction of hyponatremia. Sodium level 126 at 1 AM this morning. Currently off IV fluids. Refused blood draw this morning. Vital signs are stable. General: No acute distress. HEENT: Head exam is unremarkable. LUNGS: No audible rhonchi or wheezes. HEART: Rate and Rhythm are regular. ABDOMEN: Nontender. EXTREMITITES: No edema. Objective - Vital Signs Vital signs: Vital Signs Temp 98.1 F 08/26/23 03:57 Pulse 92 08/26/23 03:57 Resp 16 08/26/23 03:57 BP 141/90 08/26/23 03:57 Pulse Ox 96 08/26/23 03:57 FiO2 Intake & Output 08/25/23 08/26/23 08/26/23 18:59 06:59 18:59 Intake Total 310 480 Balance 310 480 Intake: Oral 310 480 Other: Voiding Method Toilet Toilet # Voids 3 - Labs CBC & Chem 7: 08/25/23 03:20 08/26/23 00:56 Labs: Abnormal Lab Results - Last 24 Hours (Table) 08/25/23 08/25/23 08/25/23 Range/Units 12:59 12:59 14:07 Sodium 123 L (137-145) mmol/L Osmolality 254 L (275-295) mOsm/kg Urine Osmolality 43 L (400-1100) mOsm/kg Ur Random Sodium <20 L (40-220) mmol/L 08/25/23 08/25/23 08/26/23 Range/Units 18:02 21:07 00:56 Sodium 126 L 128 L 126 L (137-145) mmol/L Osmolality (275-295) mOsm/kg Urine Osmolality (400-1100) mOsm/kg Ur Random Sodium (40-220) mmol/L Assessment and Plan Plan: Assessment: 1. Hyponatremia secondary to poor solute intake and excessive fluid intake. 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 Hyponatremia is further worsened with the use of Depakote which is now held. This appears to be acute hyponatremia as sodium level August 22, 2023 at 10:30 AM was 129 and was low at 116 on August 24, 2023 at 6:30 PM. Urine sodium less than 20 and urine osmola lity 43. 2. Schizophrenia. 3. Benign hypertension. Controlled. Plan: Currently off IV fluids. Depakote is currently held. Follow-up TSH. Advised patient to restrict fluid intake to 2 L/day. Follow-up morning labs. Patient agreeable to get blood drawn.
--- NOTE | 2023-08-26 14:32 | P.PN ---
Progress Note - Text Progress Note Date: 08/26/23 Interval history: Patient was seen today for psychiatric follow up. patient was up and wearing s treet clothing. he states that he is doing good today, denies any complaints. apparently has been drinking several glasses of water according to nurses. he states that he is hearing less voices today and are not bothersome. he denies any depression or anxiety. was requesting discharge. has mildly improving insight/judgment. remains somewhat contrete. less delusional today, appears to be more at baseline. deneis any VH and denies any Si or HI. slept well last night with the seroquel. MENTAL STATUS EXAM: General Appearance: Patient appears to be stated age is alert, directable, and attempts to cooperate. Patient appears to have fair hygiene and grooming. Behavior: Patient is lying down in bed without any agitated behavior. Eye contact is appropriate. Speech: Patient's speech is rambling, loose associations Mood/Affect: Patient reports their mood is "alright" Affect is blunted. Improving mildly Suicidality/Homicidality: Patient denies having any homicidal ideation intent or plan. Denies any suicidal ideations intent or plan Perceptions: Patient denies any visual hallucinations, he is endorsing auditory hallucinations claiming that he is hearing "expert witnesses" however improving, non distressing and chronic. Though content/process: Patient is delusional, improving, less preoccupied with time. Memory and concentration: AOX3, grossly intact for the purposes of this session. Cannot spell "WORLD" backwards Judgment and insight: chronically poor, improving mildly IMPRESSIONS: Schizophrenia Alcohol use disorder Nicotine dependence PLAN: -Patient is currently on a full mental health treatment order exp 10/09/23, therefore must take psychiatric medications. At this time patient does NOT meet criteria for inpatient psych admission. -Would recommend the following medication changes/additions: Discontinue Depakote. Patient received Prolixin D 37.5 mg IM on 08/18, next dose will be due on 09/01 every 2 weeks next dose can be given at [facility] (order sent to [facility]). propranolol 20 mg daily for akathisia/restlessness, seroquel 50 mg nightly for mood stabilization/psychosis adjunct/sleep, if patient refuses PO seroquel then please give zyprexa IM due to patient being on a court order -Continue your medical management for patient's hyponatremia and underlying medical comorbidities. please limit cups of water and consider adding salt packets to cups of water to help improve Na. -Communicated plan to patient's nurse -at this time psychiatry will sign off. he can continue f/u with [facility]. -Please contact with any questions.
[2023-08-26 21:44] VITALS: TEMP 97.7
[2023-08-27 07:20] LABS: African American GFR (CKD) >90 (>60 ml/min/1.73 sqM); Anion Gap 8 mmol/L; Blood Urea Nitrogen 12 mg/dL (9-20); Calcium 9.1 mg/dL (8.4-10.2); Carbon Dioxide 21 mmol/L (22-30); Chloride 103 mmol/L (98-107); Glucose 90 mg/dL (74-99); Non-African American GFR(CKD) >90 (>60 ml/min/1.73 sqM); Potassium 3.7 mmol/L (3.5-5.1); Sodium 132 mmol/L (137-145)
--- NOTE | 2023-08-27 11:24 | P.PN ---
Subjective Patient is seen in follow-up for hyponatremia. Sodium level 132 today. Oral intake is good. No vomiting or diarrhea. Vital signs are stable. General: No acute distress. HEENT: Head exam is unremarkable. LUNGS: No audible rhonchi or wheezes. HEART: Rate and Rhythm are regular. ABDOMEN: Nontender. EXTREMITITES: No edema. Objective - Vital Signs Vital signs: Vital Signs Temp 97.7 F 08/27/23 03:58 Pulse 66 08/27/23 03:58 Resp 14 08/27/23 03:58 BP 117/55 08/27/23 03:58 Pulse Ox 98 08/27/23 03:58 FiO2 Intake & Output 08/26/23 08/27/23 08/27/23 18:59 06:59 18:59 Intake Total 960 Balance 960 Intake: Oral 960 Other: Voiding Method Toilet Toilet # Voids 1 - Labs CBC & Chem 7: 08/25/23 03:20 08/27/23 06:26 Labs: Abnormal Lab Results - Last 24 Hours (Table) 08/27/23 Range/Units 06:26 Sodium 132 L (137-145) mmol/L Carbon Dioxide 21 L (22-30) mmol/L Creatinine 0.59 L (0.66-1.25) mg/dL Assessment and Plan Plan: Assessment: 1. Hyponatremia secondary to poor solute intake and excessive fluid intake. 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 Hyponatremia is further worsened with the use of Depakote which is now held. This appears to be acute hypon atremia as sodium level August 22, 2023 at 10:30 AM was 129 and was low at 116 on August 24, 2023 at 6:30 PM. Urine sodium less than 20 and urine osmolality 43. Sodium level 132 this morning. 2. Schizophrenia. 3. Benign hypertension. Controlled. Plan: Currently off IV fluids. Depakote is currently held. Follow-up TSH. Advised patient to restrict fluid intake to 2 L/day. Repeat BMP and magnesium level 2 to 3 days postdischarge. Follow-up outpatient in 1 week.
--- NOTE | 2023-08-27 11:35 | P.DS ---
Providers Date of admission: 08/24/23 19:54 Expected date of discharge: 08/27/23 Attending physician: Carlee Barnes MD Consults: 08/24/23 21:53 Consult Physician Routine Consulting Provider: Maury Yuen Consult Reason/Comments: known to doc Do you want consulting provider notified?: Yes 08/25/23 10:44 Consult Physician Routine Consulting Provider: Nat Silver Consult Reason/Comments: hyponatremia Do you want consulting provider notified?: Yes Primary care physician: [facility] Course: 57-year-old male with schizophrenia, h/o EtOH abuse, GERD and hypertension who was admitted to the mental health unit for psychosis with a history of schizophrenia. Patient's labs while he was in the psychiatry unit showed severe hyponatremia. Patient otherwise is asymptomatic. In the psych unit patient was getting Depakote and Haldol. Patient was transferred to the medical floor. He was started on normal saline fluids and Depakote and Haldol were discontinued. Patient's sodium levels were improving. Patient was seen by nephrology who stopped the fluids and started patient on fluid restriction for treatment of possible polydipsia hyponatremia. 08/25 Patient was seen and examined. Pacing the room. Most recent sodim is 126. His sodium on admission was 122. UOsm 43. Sarkis < 20. BMP, Mag, TSH pending this morning. 08/26 Patient was seen and examined. Patient is placed on fluid restriction. BMP shows Na 132, bicarb 21, Cr 0.59. Psychiatry recommends no inpatient psyc, Prolixin injections every 2 weeks (order sent to [facility] pharmacy), propranolol 20 mg PO QD, Seroquel 50 mg PO QHS. Psychiatry has signed off and cleared the patient for discharge. Patient is advised to limit his water intake to 1.5L daily. He is advised to follow up with psychiatry in the outpatient setting. Prescriptions sent to pharmacy. Repeat BMP in 3 days to be followed up with PCP. General: non toxic, no distress, appears at stated age Derm: warm, dry Head: atraumatic, normocephalic, symmetric Eyes: EOMI, no lid lag, anicteric sclera Mouth: no lip lesion, mucus membranes moist Cardiovascular: good distal perfusion in all 4 extremities Lungs: breathing comfortably, no rhonchi, no rales , no accessory muscle use Ext: no gross muscle atrophy, no edema, no contractures Neuro: no focal neuro deficits Psych: Alert, oriented, appropriate affect Discharge Diagnosis: Severe acute hypotonic hyponatremia Hypertension Schizophrenia This complex discharge took 35 minutes to complete. Patient Condition at Discharge: Stable Plan - Discharge Summary Discharge Rx Participant: Yes New Discharge Prescriptions: New fluPHENAZine decanoate [Prolixin Decanoate] 37.5 mg IM Q14D #1 ml Propranolol [Inderal] 20 mg PO DAILY #30 tab QUEtiapine [SEROquel] 50 mg PO HS #30 tab Continue fluPHENAZine decanoate [Prolixin Decanoate] 25 mg IM Q14D Pantoprazole Sodium [Protonix] 40 mg PO DAILY #15 tab Acetaminophen Tab [Tylenol] 650 mg PO TID PRN PRN Reason: Fever And/ Or Pain Cholecalciferol [Vitamin D3 (125 Mcg = 5000 Iu)] 125 mcg PO DAILY Loratadine [Claritin] 10 mg PO DAILY Aspirin 81 mg PO DAILY 30 Days tab amLODIPine [Norvasc] 10 mg PO DAILY Discontinued Divalproex ER [Depakote ER] 500 mg PO BID Sodium Bicarbonate Tab 650 mg PO DAILY atenoloL [Tenormin] 50 mg PO BID fluPHENAZine HCl 10 mg PO HS Potassium Chloride ER [K-Dur 10] 10 meq PO DAILY Sodium Chloride Tab 1 gm PO DAILY Discharge Medication List Aspirin 81 mg PO DAILY 30 Days tab 01/29/21 [Rx] fluPHENAZine decanoate [Prolixin Decanoate] 25 mg IM Q14D 08/03/22 [History] Pantoprazole Sodium [Protonix] 40 mg PO DAILY #15 tab 08/05/22 [Rx] Acetaminophen Tab [Tylenol] 650 mg PO TID PRN 08/07/23 [History] Cholecalciferol [Vitamin D3 (125 Mcg = 5000 Iu)] 125 mcg PO DAILY 08/07/23 [History] Loratadine [Claritin] 10 mg PO DAILY 08/07/23 [History] amLODIPine [Norvasc] 10 mg PO DAILY 08/07/23 [History] fluPHENAZine decanoate [Prolixin Decanoate] 37.5 mg IM Q14D #1 ml 08/26/23 [Rx] Propranolol [Inderal] 20 mg PO DAILY #30 tab 08/27/23 [Rx] QUEtiapine [SEROquel] 50 mg PO HS #30 tab 08/27/23 [Rx] Ambulatory/Diagnostic Orders: Basic Metabolic Panel [LAB.AMB] Time Frame: 3 Days, Location: None Selected Activity/Diet/Wound Care/Special Instructions: Please follow up with [facility] and your Psychiatrist within 1 week of discharge. Take all medications as advised. Limit water intake to 1.5L per day. Increase salt intake. Discharge Disposition: HOME SELF-CARE
[2023-08-27 11:44] VITALS: RESP 16
[2023-08-27 14:42] VITALS: BP 99/67; PULSE 97
[2023-09-02] MEDS ORDERED: fluPHENAZine DECANOATE 25 MG/ML 5ML MDV IM SCH (09:00)
== END 2023-08-27 17:52 | disposition home or self-care (01) | DRG 641 ==
LOC: 3SCARD 19:54 → EEVIPCON 19:54
PROVIDERS: ADMIT Internal Medicine; ATTEND Internal Medicine
DX: E87.1 Hypo-osmolality and hyponatremia (principal); F20.9 Schizophrenia, unspecified; I10 Essential (primary) hypertension; F10.11 Alcohol abuse, in remission; K21.9 Gastro-esophageal reflux disease without esophagitis; R63.1 Polydipsia; E83.42 Hypomagnesemia; Z79.82 Long term (current) use of aspirin; Z79.899 Other long term (current) drug therapy
CPT/HCPCS: 80048; 80053; 83735; 83930; 83935; 84295; 84300; 84443; 85025

== ENCOUNTER 2023-11-21 23:06 | Emergency (ER) | payer MEDICARE, OTHER ==
[2023-11-21 23:16] VITALS: TEMP 98.6
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
[2023-11-22 01:35] LABS: HCT 38.3 % (39.0-53.0); MCHC 36.6 g/dL (31.0-37.0); Mean Platelet Volume 7.8; Platelet Count 210 k/uL (150-450); RBC 4.11 m/uL (4.30-5.90); RDW 13.5 % (11.5-15.5); WBC 7.4 k/uL (3.8-10.6)
[2023-11-22 01:36] LABS: INR 0.9 (<1.2); Partial Thromboplastin Time 26.3 sec (22.0-30.0); Prothrombin Time 10.4 sec (10.0-12.5)
[2023-11-22 01:48] LABS: ALT 68 U/L (4-49); AST 103 U/L (17-59); African American GFR (CKD) >90 (>60 ml/min/1.73 sqM); Albumin 4.3 g/dL (3.5-5.0); Alkaline Phosphatase 93 U/L (38-126); Anion Gap 13 mmol/L; Blood Urea Nitrogen 5 mg/dL (9-20); Calcium 8.9 mg/dL (8.4-10.2); Carbon Dioxide 21 mmol/L (22-30); Chloride 95 mmol/L (98-107); Glucose 97 mg/dL (74-99); Non-African American GFR(CKD) >90 (>60 ml/min/1.73 sqM); Potassium 3.1 mmol/L (3.5-5.1); Sodium 129 mmol/L (137-145); Total Bilirubin 1.1 mg/dL (0.2-1.3); Total Protein 6.8 g/dL (6.3-8.2)
[2023-11-22 01:59] LABS: Band Neutrophils % 2 %; Eosinophils # (M) 0.15 k/uL (0-0.7); Lymphocytes # (M) 1.11 k/uL (1.0-4.8); Monocytes # (M) 1.26 k/uL (0-1.0); Neutrophils % (M) 64 %; Nucleated Red Blood Cells 0 /100 WBC (0-0); Total Cells Counted 100
[2023-11-22 02:08] LABS: Alcohol 200 mg/dL
--- NOTE | 2023-11-22 02:21 | CT ---
EXAM: CT Head Without Intravenous Contrast CLINICAL HISTORY: ITS.REASON CT Reason: fall injury TECHNIQUE: Axial computed tomography images of the head/brain without intravenous contrast. CTDI is 12.4 mGy and DLP is 376 mGy-cm. This CT exam was performed using one or more of the following dose reduction techniques: automated exposure control, adjustment of the mA and/or kV according to patient size, and/or use of iterative reconstruction technique. COMPARISON: No relevant prior studies available. FINDINGS: No acute intracranial hemorrhage. No midline shift or mass effect. The territorial tillman-white matter differentiation is maintained throughout. The ventricles and sulci are commensurate with age. The visualized orbits appear grossly unremarkable. The calvarium is intact. The visualized paranasal sinuses and mastoid air cells are grossly clear. IMPRESSION: No acute intracranial hemorrhage, midline shift, or mass effect. EXAM: CT Cervical Spine Without Intravenous Contrast CLINICAL HISTORY: ITS.REASON CT Reason: fall injury TECHNIQUE: Axial computed tomography images of the cervical spine without intravenous contrast. CTDI is 14.5 mGy and DLP is 441.3 mGy-cm. This CT exam was performed using one or more of the following dose reduction techniques: automated exposure control, adjustment of the mA and/or kV according to patient size, and/or use of iterative reconstruction technique. COMPARISON: No relevant prior studies available. FINDINGS: The vertebral body heights are maintained. The craniocervical junction is intact. The atlanto-dens interval is maintained. The dens is intact. There is no spondylolisthesis. Multilevel cervical spondylosis and degenerative disc disease. Straightening of the cervical lordosis. The unenhanced neck soft tissues are grossly unremarkable. The visualized lung apices are grossly clear. IMPRESSION: No acute fracture or subluxation of the cervical spine.
--- NOTE | 2023-11-22 03:21 | XR ---
EXAM: XR Chest, 1 View CLINICAL HISTORY: ITS.REASON XR Reason: fall injury TECHNIQUE: Frontal view of the chest. COMPARISON: No relevant prior studies available. FINDINGS: Lungs: No pneumonia. Pleural space: Unremarkable. No pneumothorax. Heart: Unremarkable. No cardiomegaly. Mediastinum: Unremarkable. Normal mediastinal contour. Bones/joints: Unremarkable. No acute fracture. IMPRESSION: No pneumonia.
--- NOTE | 2023-11-22 03:44 | CT ---
EXAM: CT Maxillofacial Without Intravenous Contrast CLINICAL HISTORY: ITS.REASON CT Reason: fall injury TECHNIQUE: Axial computed tomography images of the face without intravenous contrast. CTDI is 12.4 mGy and DLP is 376 mGy-cm. This CT exam was performed using one or more of the following dose reduction techniques: automated exposure control, adjustment of the mA and/or kV according to patient size, and/or use of iterative reconstruction technique. COMPARISON: No relevant prior studies available. FINDINGS: The mandible is intact. Intact maxillary alveolus. The orbital rims and floors are intact. The intraorbital contents are grossly unremarkable. Intact nasal bones, nasal septum, and maxillary spines. The zygomatic arches and pterygoid processes are intact. IMPRESSION: No facial bone fracture.
[2023-11-22 05:46] VITALS: BP 150/104; PULSE 93; RESP 20
== END 2023-11-22 06:25 | disposition home or self-care (01) ==
LOC: EC 23:06
DX: S02.2XXA Fracture of nasal bones, initial encounter for closed fracture (principal); F10.129 Alcohol abuse with intoxication, unspecified; R00.0 Tachycardia, unspecified; Z88.8 Allergy status to other drugs, medicaments and biological substances; Z87.19 Personal history of other diseases of the digestive system; W18.30XA Fall on same level, unspecified, initial encounter; Y90.7 Blood alcohol level of 200-239 mg/100 ml
CPT/HCPCS: 99285; 36415; 93005; 80053; 85025; 85610; 85730; 71045; 72125; 70486; 70450; G0480; 80320

== ENCOUNTER 2024-01-16 12:12 | Emergency (ER) | payer MEDICARE, OTHER ==
--- NOTE | 2024-01-16 12:31 | ED ---
Abdominal Pain HPI - General Source: patient, RN notes reviewed <Shani Ureña - Last Filed: 01/16/24 12:29> - General Source: patient, RN notes reviewed, old records reviewed <Raymundo Chandler - Last Filed: 01/16/24 14:51> - History of Present Illness MD Complaint: abdominal pain <Chu Muir - Last Filed: 01/16/24 17:01> - General Stated Complaint: Constipation Time Seen by Provider: 01/16/24 12:29 - History of Present Illness Initial Comments: Quick [id number] male presents emergency department chief complaint of bloating and constipation. Patient states that he has not had a bowel movement the past 3 to 4 days. denies abdominal pain. Patient states that he is still passing gas. Denies nausea, vomiting, fevers or chills. Patient has been taking Ex-Lax at home with minimal relief. Patient states that he has a history of constipation of the medications that he is on. (Shani Ureña) Patient originally seen as a quick note. Abdominal ultrasound obtained at that time. Patient presents for abdominal pain with constipation. States he is not having good bowel movements. Is an everyday drinker. Endorses diffuse abdominal discomfort and bloating. Denies any fevers or chills. States he has noticed a significant decrease in stooling. Denies nausea or vomiting. Denies chest pain or shortness of breath. Denies any other acute complaints at this time. Presents for further evaluation at this time. I evaluated the patient in the waiting room (Raymundo Chandler) 58 male to ER for evaluation of abdominal pain complaining of constipation no bowel movements (Chu Muir) - Related Data Home Medications Medication Instructions Recorded Confirmed fluPHENAZine decanoate [Prolixin 25 mg IM Q14D 08/03/22 08/24/23 Decanoate] Acetaminophen Tab [Tylenol] 650 mg PO TID PRN 08/07/23 08/24/23 Cholecalciferol [Vitamin D3 (125 125 mcg PO DAILY 08/07/23 08/24/23 Mcg = 5000 Iu)] Loratadine [Claritin] 10 mg PO DAILY 08/07/23 08/24/23 amLODIPine [Norvasc] 10 mg PO DAILY 08/07/23 08/24/23 Previous Rx's Medication Instructions Recorded Aspirin 81 mg PO DAILY 30 Days tab 01/29/21 Pantoprazole Sodium [Protonix] 40 mg PO DAILY #15 tab 08/05/22 fluPHENAZine decanoate [Prolixin 37.5 mg IM Q14D #1 ml 08/26/23 Decanoate] Propranolol [Inderal] 20 mg PO DAILY #30 tab 08/27/23 QUEtiapine [SEROquel] 50 mg PO HS #30 tab 08/27/23 Allergies Allergy/AdvReac Type Severity Reaction Status Date / Time clozapine AdvReac Hypotension Verified 11/21/23 23:16 /Diarrhea divalproex sodium AdvReac Hyponatremi Verified 11/21/23 23:16 [From Depakote] a Review of Systems ROS Other: All systems not noted in ROS Statement are negative. <Shani Ureña - Last Filed: 01/16/24 12:29> ROS Other: All systems not noted in ROS Statement are negative. <Raymundo Chandler - Last Filed: 01/16/24 14:51> ROS Other: All systems not noted in ROS Statement are negative. <Chu Muir - Last Filed: 01/16/24 17:01> ROS Statement: Those systems with pertinent positive or pertinent negative responses have been documented in the HPI. Review of Systems: CONST: Denies fever EYES: Denies blurry vision ENT: Denies nasal congestion C/V: Denies Chest pain RESP: Denies shortness of breath GI: Endorses abdominal pain : Denies dysuria SKIN: Denies rash. MSK: Denies joint pain. NEURO: Denies headache (Raymundo Chandler) Past Medical History Past Medical History: GERD/Reflux, Hypertension, Vascular Disorder Additional Past Medical History / Comment(s): ETOH abuse, alcohol withdrawl with tremens, diverticular disease, benign colon polyp, varicose veins. History of Any Multi-Drug Resistant Organisms: None Reported Past Surgical History: No Surgical Hx Reported Additional Past Surgical History / Comment(s): Teeth extractions, colonoscopies. Past Anesthesia/Blood Transfusion Reactions: No Reported Reaction Additional Past Anesthesia/Blood Transfusion Reaction / Comment(s): Never had Past Psychological History: Anxiety, Depression, Schizophrenia Smoking Status: Never smoker Past Alcohol Use History: Heavy Past Drug Use History: None Reported - Past Family History Father Family Medical History: Myocardial Infarction (VT) Additional Family Medical History / Comment(s): AT AGE 58 FROM [place] Mother Family Medical History: Deep Vein Thrombosis (DVT), Hypertension Additional Family Medical History / Comment(s): PRIMARY PULMONARY HYPERTENSION <Shani Ureña - Last Filed: 01/16/24 12:29> General Exam <Shani Ureña - Last Filed: 01/16/24 12:29> <RameshRaymundo - Last Filed: 01/16/24 14:51> General appearance: alert, in no apparent distress Head exam: Present: atraumatic, normocephalic, normal inspection Eye exam: Present: normal appearance, PERRL, EOMI. Absent: scleral icterus, conjunctival injection, periorbital swelling ENT exam: Present: normal exam, mucous membranes moist Neck exam: Present: normal inspection. Absent: tenderness, meningismus, lymphadenopathy Respiratory exam: Present: normal lung sounds bilaterally. Absent: respiratory distress, wheezes, rales, rhonchi, stridor Cardiovascular Exam: Present: regular rate, normal rhythm, normal heart sounds. Absent: systolic murmur, diastolic murmur, rubs, gallop, clicks GI/Abdominal exam: Present: soft, normal bowel sounds. Absent: distended, tenderness, guarding, rebound, rigid Extremities exam: Present: normal inspection, full ROM, normal capillary refill. Absent: tenderness, pedal edema, joint swelling, calf tenderness Back exam: Present: normal inspection Neurological exam: Present: alert, oriented X3, CN II-XII intact Psychiatric exam: Present: normal affect, normal mood Skin exam: Present: warm, dry, intact, normal color. Absent: rash <Chu Muir - Last Filed: 01/16/24 17:01> - General Exam Comments Initial Comments: Visual Physical Exam Vital signs reviewed General: Well-appearing, nontoxic, no acute distress. Head: Normocephalic, atraumatic Eyes: PERRLA, EOMI ENT: Airway patent Chest: Nonlabored breathing Skin: No visual rash, normal skin tone Neuro: Alert and oriented 3 Musculoskeletal: No gross abnormalities (Zarinaelercik,Shani) General: Appears in no acute distress. HEAD: Normal with no signs of head trauma. EYES: PERRLA, EOMI, conjunctiva normal, no discharge. ENT: Hearing grossly intact, normal oropharynx. RESPIRATORY: Clear breath sounds bilaterally. No wheezes, rales, or rhonchi. C/V: Regular rate and rhythm. S1 and S2 auscultated, no edema, peripheral pulses 2+ and intact throughout ABD: Abdomen soft, nondistended. Tender to palpation diffusely. No guarding or rebound tenderness. No peritoneal signs. EXT: Normal range of motion, no obvious deformity SKIN: No rashes or lesions observed on exposed skin. NEURO: Alert and oriented x 4. (Raymundo Chandler) Course <Chu Muir - Last Filed: 01/16/24 17:01> Vital Signs 01/16/24 12:35 Temperature 97.5 F L Pulse Rate 100 Respiratory 20 Rate Blood Pressure 157/100 O2 Sat by Pulse 97 Oximetry - Reevaluation(s) Reevaluation #1: 01/16/24 17:00 Medical records reviewed (Chu Muir) Reevaluation #2: 01/16/24 17:01 Patient has improvement in symptoms (Chu Muir) Reevaluation #3: 01/16/24 17:01 Patient informed of results questions answered (Chu Muir) Medical Decision Making <Shani Ureña - Last Filed: 01/16/24 12:29> <Raymundo Chandler - Last Filed: 01/16/24 14:51> - Lab Data Result diagrams: 01/16/24 14:39 01/16/24 14:39 <Chu Muir - Last Filed: 01/16/24 17:01> - Medical Decision Making I completed the quick note portion of this chart signed Shani Ureña PA-C (Shani Ureña) Was pt. sent in by a medical professional or institution ([facility], BUSINESS TEAM LEADER, urgent care, hospital, or group home...) When possible be specific @ -No Did you speak to anyone other than the patient for history (EMS, parent, family, police, friend...)? What history was obtained from this source @ -No Did you review nursing and triage notes (agree or disagree)? Why? @ -I reviewed and agree with nursing and triage notes Were old charts reviewed (outside hosp., previous admission, EMS record, old EKG, old radiological studies, urgent care reports/EKG's, group home records)? Report findings @ -No old charts were reviewed Differential Diagnosis (chest pain, altered mental status, abdominal pain women, abdominal pain men, vaginal bleeding, weakness, fever, dyspnea, syncope, headach e, dizziness, GI bleed, back pain, seizure, CVA, palpatations, mental health, musculoskeletal)? @ -Differential Abdominal Pain Men: Appendicitis, cholecystitis, diverticulosis, ischemic bowel, pancreatitis, hepatitis, UTI, gastroenteritis, AAA, incarcerated hernia, bowel obstruction, constipation, inflammatory bowel, hepatitis, peptic ulcer disease, splenic infarction, perforated viscus, testicular torsion, this is not meant to be an all-inclusive list EKG interpreted by me (3pts min.). @ -None done X-rays interpreted by me (1pt min.). @ -KUB x-ray reveals no obvious acute intra-abdominal process. CT interpreted by me (1pt min.). @ -Pending U/S interpreted by me (1pt. min.). @ -None done What testing was considered but not performed or refused? (CT, X-rays, U/S, labs)? Why? @ -None What meds were considered but not given or refused? Why? @ -None Did you discuss the management of the patient with other professionals (professionals i.e. , PA, BUSINESS TEAM LEADER, lab, RT, psych nurse, social media manager, revenue specialist, teacher, information officer, complex case manager)? Give summary @ -No Was smoking cessation discussed for >3mins.? @ -No Was critical care preformed (if so, how long)? @ -No Were there social determinants of health that impacted care today? How? (Homelessness, low income, unemployed, alcoholism, drug addiction, transportation, low edu. Level, literacy, decrease access to med. care, nursing home, r ehab)? @ -No Was there de-escalation of care discussed even if they declined (Discuss DNR or withdrawal of care, Hospice)? DNR status @ -No What co-morbidities impacted this encounter? (DM, HTN, Smoking, COPD, CAD, Cancer, CVA, ARF, Chemo, Hep., AIDS, mental health diagnosis, sleep apnea, morbid obesity)? @ -Alcohol abuse Was patient admitted / discharged? Hospital course, mention meds given and route, prescriptions, significant lab abnormalities, going to OR and other pertinent info. @ -Patient presents with abdominal pain. Originally seen as a quick note. Believes he is constipated. KUB x-ray obtained revealed no obvious constipation or findings. Discussed with the patient and due to his abdominal pain we will obtain abdominal labs as well as CT abdomen pelvis. Patient was in agreement this plan. Vitals are within acceptable limits. Patient is being worked up out of the waiting room. Originally seen as a quick note. I evaluated him in the waiting room. Disposition pending results of workup. Patient signed out to Dr. Muir Pending results. Undiagnosed new problem with uncertain prognosis? @ -No Drug Therapy requiring intensive monitoring for toxicity (Heparin, Nitro, Insulin, Cardizem)? @ -No Were any procedures done? @ -No (Raymundo Chandler) 58 male to ER for evaluation abdominal pain. No acute findings here in the ER patient can be discharged home (Chu Muir) - Lab Data Lab Results 01/16/24 01/16/24 01/16/24 Range/Units 14:39 14:39 14:39 WBC 6.4 (3.8-10.6) k/uL RBC 4.62 (4.30-5.90) m/uL Hgb 14.9 (13.0-17.5) gm/dL Hct 42.4 (39.0-53.0) % MCV 91.7 (80.0-100.0) fL MCH 32.3 (25.0-35.0) pg MCHC 35.3 (31.0-37.0) g/dL RDW 13.3 (11.5-15.5) % Plt Count 266 (150-450) k/uL MPV 7.6 Neutrophils % 58 % Lymphocytes % 27 % Monocytes % 6 % Eosinophils % 3 % Basophils % 1 % Neutrophils # 3.7 (1.3-7.7) k/uL Lymphocytes # 1.8 (1.0-4.8) k/uL Monocytes # 0.4 (0-1.0) k/uL Eosinophils # 0.2 (0-0.7) k/uL Basophils # 0.1 (0-0.2) k/uL Sodium 132 L (137-145) mmol/L Potassium 3.8 (3.5-5.1) mmol/L Chloride 96 L (98-107) mmol/L Carbon Dioxide 19 L (22-30) mmol/L Anion Gap 17 mmol/L BUN 7 L (9-20) mg/dL Creatinine 0.54 L (0.66-1.25) mg/dL Est GFR (CKD-EPI)AfAm >90 (>60 ml/min/1.73 sqM) Est GFR (CKD-EPI)NonAf >90 (>60 ml/min/1.73 sqM) Glucose 142 H (74-99) mg/dL Plasma Lactic Acid Edwin 2.0 (0.7-2.0) mmol/L Calcium 9.6 (8.4-10.2) mg/dL Total Bilirubin 1.2 (0.2-1.3) mg/dL AST 44 (17-59) U/L ALT 37 (4-49) U/L Alkaline Phosphatase 79 (38-126) U/L Total Protein 8.2 (6.3-8.2) g/dL Albumin 5.2 H (3.5-5.0) g/dL Amylase 52 (30-110) U/L Lipase 132 (23-300) U/L Urine Color Urine Appearance (Clear) Urine pH (5.0-8.0) Ur Specific Dante (1.001-1.035) Urine Protein (Negative) Urine Glucose (UA) (Negative) Urine Ketones (Negative) Urine Blood (Negative) Urine Nitrite (Negative) Urine Bilirubin (Negative) Urine Urobilinogen (<2.0) mg/dL Ur Leukocyte Esterase (Negative) Serum Alcohol 127 mg/dL 01/16/24 Range/Units 15:49 WBC (3.8-10.6) k/uL RBC (4.30-5.90) m/uL Hgb (13.0-17.5) gm/dL Hct (39.0-53.0) % MCV (80.0-100.0) fL MCH (25.0-35.0) pg MCHC (31.0-37.0) g/dL RDW (11.5-15.5) % Plt Count (150-450) k/uL MPV Neutrophils % % Lymphocytes % % Monocytes % % Eosinophils % % Basophils % % Neutrophils # (1.3-7.7) k/uL Lymphocytes # (1.0-4.8) k/uL Monocytes # (0-1.0) k/uL Eosinophils # (0-0.7) k/uL Basophils # (0-0.2) k/uL Sodium (137-145) mmol/L Potassium (3.5-5.1) mmol/L Chloride (98-107) mmol/L Carbon Dioxide (22-30) mmol/L Anion Gap mmol/L BUN (9-20) mg/dL Creatinine (0.66-1.25) mg/dL Est GFR (CKD-EPI)AfAm (>60 ml/min/1.73 sqM) Est GFR (CKD-EPI)NonAf (>60 ml/min/1.73 sqM) Glucose (74-99) mg/dL Plasma Lactic Acid Edwin (0.7-2.0) mmol/L Calcium (8.4-10.2) mg/dL Total Bilirubin (0.2-1.3) mg/dL AST (17-59) U/L ALT (4-49) U/L Alkaline Phosphatase (38-126) U/L Total Protein (6.3-8.2) g/dL Albumin (3.5-5.0) g/dL Amylase (30-110) U/L Lipase (23-300) U/L Urine Color Colorless Urine Appearance Clear (Clear) Urine pH 6.5 (5.0-8.0) Ur Specific Dante 1.002 (1.001-1.035) Urine Protein Negative (Negative) Urine Glucose (UA) Negative (Negative) Urine Ketones Negative (Negative) Urine Blood Negative (Negative) Urine Nitrite Negative (Negative) Urine Bilirubin Negative (Negative) Urine Urobilinogen <2.0 (<2.0) mg/dL Ur Leukocyte Esterase Negative (Negative) Serum Alcohol mg/dL Disposition <Shani Ureña - Last Filed: 01/16/24 12:29> <Raymundo Chandler - Last Filed: 01/16/24 14:51> Is patient prescribed a controlled substance at d/c from ED?: No Time of Disposition: 17:00 <Chu Muir - Last Filed: 01/16/24 17:01> Clinical Impression: Abdominal pain Disposition: HOME SELF-CARE Condition: Fair Instructions (If sedation given, give patient instructions): Abdominal Pain (ED) Referrals: [facility] [Primary Care Provider] - 1-2 days
--- NOTE | 2024-01-16 13:14 | XR ---
EXAMINATION TYPE: XR KUB DATE OF EXAM: 01/16/2024 Comparison: None Clinical History: 58-year-old male constipation for 4 days Findings: No significant stool burden. No dilated small bowel loops or air-fluid levels. Lung bases are clear. No evidence for free intraperitoneal air. Prominent left lateral endplate spondylosis L3-L4 and right lateral T12-L2. No suspicious calcifications are seen. Impression: No evidence for free air or bowel obstruction. No significant stool burden.
[2024-01-16 15:08] LABS: ALT 37 U/L (4-49); AST 44 U/L (17-59); African American GFR (CKD) >90 (>60 ml/min/1.73 sqM); Albumin 5.2 g/dL (3.5-5.0); Alkaline Phosphatase 79 U/L (38-126); Amylase 52 U/L (30-110); Anion Gap 17 mmol/L; Blood Urea Nitrogen 7 mg/dL (9-20); Calcium 9.6 mg/dL (8.4-10.2); Carbon Dioxide 19 mmol/L (22-30); Chloride 96 mmol/L (98-107); Glucose 142 mg/dL (74-99); Lipase 132 U/L (23-300); Non-African American GFR(CKD) >90 (>60 ml/min/1.73 sqM); Potassium 3.8 mmol/L (3.5-5.1); Sodium 132 mmol/L (137-145); Total Bilirubin 1.2 mg/dL (0.2-1.3); Total Protein 8.2 g/dL (6.3-8.2)
[2024-01-16 15:27] LABS: Basophils # (A) 0.1 k/uL (0-0.2); Basophils % (A) 1 %; Eosinophils # (A) 0.2 k/uL (0-0.7); Eosinophils % (A) 3 %; HCT 42.4 % (39.0-53.0); HGB 14.9 gm/dL (13.0-17.5); Lymphocytes # (A) 1.8 k/uL (1.0-4.8); Lymphocytes % (A) 27 %; MCH 32.3 pg (25.0-35.0); MCHC 35.3 g/dL (31.0-37.0); MCV 91.7 fL (80.0-100.0); Mean Platelet Volume 7.6; Monocytes # (A) 0.4 k/uL (0-1.0); Monocytes % (A) 6 %; Neutrophils # (A) 3.7 k/uL (1.3-7.7); Neutrophils % (A) 58 %; Platelet Count 266 k/uL (150-450); RBC 4.62 m/uL (4.30-5.90); RDW 13.3 % (11.5-15.5); WBC 6.4 k/uL (3.8-10.6)
[2024-01-16 15:30] LABS: Alcohol 127 mg/dL
[2024-01-16 16:19] LABS: Appearance,Urine Clear (Clear); Bilirubin,Urine Negative (Negative); Blood,Urine Negative (Negative); Color,Urine Colorless; Glucose,Urine (UA) Negative (Negative); Ketones,Urine Negative (Negative); Leukocyte Esterase,Urine Negative (Negative); Nitrite,Urine Negative (Negative); PH, Urine 6.5 (5.0-8.0); Protein,Urine Negative (Negative); Specific Gravity,Urine 1.002 (1.001-1.035); Urobilinogen,Urine <2.0 mg/dL (<2.0)
--- NOTE | 2024-01-16 16:30 | CT ---
EXAMINATION TYPE: CT abdomen pelvis w con DATE OF EXAM: 01/16/2024 COMPARISON: 08/20/2021 HISTORY: abdominal pain and constipation CT DLP: 1408.7 mGycm Automated exposure control for dose reduction was used. TECHNIQUE: Helical acquisition of images was performed from the lung bases through the pelvis. CONTRAST: Performed without Oral Contrast and with IV Contrast, patient injected with 100 mL of Isovue 300. FINDINGS: The lung bases are clear. Few small gallstones but no gallbladder distention, wall thickening or pericholecystic fluid. There i s no biliary ductal dilatation. There is no focal mass or organomegaly involving the liver, pancreas, spleen or adrenal glands. There is moderate to marked liver steatosis. There is stable mild nodularity of the left adrenal gland. There is no solid renal mass or hydronephrosis and there is homogeneous contrast enhancement of the renal parenchyma. The caliber the abdominal aorta is normal is no retroperitoneal adenopathy or hemor rhage. The bowel loops are normal in caliber and there is no evidence of dilatation or obstruction. No infla mmatory changes are identified in the bowel wall or mesentery. There is no free intraperitoneal air or fluid. The urinary bladder is prominent and fluid-filled reason question of obstruction. The prostate gland is normal in size. The osseous structures and soft tissues are intact. Note is made of a varicose vein in the right ante rior thigh extending from the right common femoral vein. IMPRESSION: 1. Moderate to marked liver steatosis. 2. Cholelithiasis without acute cholecystitis. 3. Prominent urinary bladder is described above
[2024-01-16 18:59] VITALS: BP 145/89; PULSE 89; RESP 18; TEMP 98
== END 2024-01-16 19:20 | disposition home or self-care (01) ==
LOC: EC 12:12
CPT/HCPCS: 36415; 74018; 74177; 80053; 80320; 81003; 82150; 83605; 83690; 85025; 99284

== ENCOUNTER 2024-01-20 02:14 | Inpatient (IN) | payer MEDICARE, OTHER ==
--- NOTE | 2024-01-20 02:18 | ED ---
Alcohol HPI - General Stated Complaint: ETOH, Mental health Time Seen by Provider: 01/20/24 02:17 Source: RN notes reviewed, old records reviewed Mode of arrival: EMS Limitations: altered mental status, physical limitation - History of Present Illness Initial Comments: This is a 58-year-old male for significant alcohol intoxication patient is unable to contribute to history of present illness patient is alcohol withdrawal MD Complaint: alcohol intoxication Last Drink: just [employer]PECT[employer], unknown -: minute(s) Previous Visits for Alcohol Intoxication?: Yes Recent Trauma: Yes Associated Symptoms: denies other symptoms Treatments Prior to Arrival: none Chronic Alcohol Use: Yes - Related Data Home Medications Medication Instructions Recorded Confirmed fluPHENAZine decanoate [Prolixin 50 mg IM Q14D 08/03/22 01/20/24 Decanoate] Acetaminophen Tab [Tylenol] 650 mg PO TID PRN 08/07/23 01/20/24 Cholecalciferol [Vitamin D3 (125 125 mcg PO DAILY 08/07/23 01/20/24 Mcg = 5000 Iu)] Loratadine [Claritin] 10 mg PO DAILY 08/07/23 01/20/24 amLODIPine [Norvasc] 10 mg PO DAILY 08/07/23 01/20/24 Potassium Chloride ER [K-Dur 10] 10 meq PO DAILY 01/20/24 01/20/24 Previous Rx's Medication Instructions Recorded Aspirin 81 mg PO DAILY 30 Days tab 01/29/21 Pantoprazole Sodium [Protonix] 40 mg PO DAILY #15 tab 08/05/22 Propranolol [Inderal] 20 mg PO DAILY #30 tab 08/27/23 QUEtiapine [SEROquel] 50 mg PO HS #30 tab 08/27/23 Allergies Allergy/AdvReac Type Severity Reaction Status Date / Time clozapine AdvReac Hypotension Verified 01/20/24 09:30 /Diarrhea divalproex sodium AdvReac Hyponatremi Verified 01/20/24 09:30 [From Depakote] a Review of Systems ROS Statement: Those systems with pertinent positive or pertinent negative responses have been documented in the HPI. ROS Other: All systems not noted in ROS Statement are negative. Past Medical History Past Medical History: GERD/Reflux, Hypertension, Vascular Disorder Additional Past Medical History / Comment(s): ETOH abuse, alcohol withdrawl with tremens, diverticular disease, benign colon polyp, varicose veins. History of Any Multi-Drug Resistant Organisms: None Reported Past Surgical History: No Surgical Hx Reported Additional Past Surgical History / Comment(s): Teeth extractions, colonoscopies. Past Anesthesia/Blood Transfusion Reactions: No Reported Reaction Additional Past Anesthesia/Blood Transfusion Reaction / Comment(s): Never had Past Psychological History: Anxiety, Depression, Schizophrenia Smoking Status: Never smoker Past Alcohol Use History: Heavy Past Drug Use History: None Reported - Past Family History Father Family Medical History: Myocardial Infarction ([place]) Additional Family Medical History / Comment(s): AT AGE 58 FROM [place] Mother Family Medical History: Deep Vein Thrombosis (DVT), Hypertension Additional Family Medical History / Comment(s): PRIMARY PULMONARY HYPERTENSION General Exam General appearance: appears intoxicated, anxious Head exam: Present: atraumatic, normocephalic, normal inspection Eye exam: Present: normal appearance, PERRL, EOMI. Absent: scleral icterus, conjunctival injection, periorbital swelling ENT exam: Present: normal exam, mucous membranes moist Neck exam: Present: normal inspection. Absent: tenderness, meningismus, lymphadenopathy Respiratory exam: Present: normal lung sounds bilaterally. Absent: respiratory distress, wheezes, rales, rhonchi, stridor Cardiovascular Exam: Present: regular rate, normal rhythm, normal heart sounds. Absent: systolic murmur, diastolic murmur, rubs, gallop, clicks GI/Abdominal exam: Present: soft, normal bowel sounds. Absent: distended, tenderness, guarding, rebound, rigid Extremities exam: Present: normal inspection, full ROM, normal capillary refill. Absent: tenderness, pedal edema, joint swelling, calf tenderness Back exam: Present: normal inspection Neurological exam: Present: alert, oriented X3, CN II-XII intact Psychiatric exam: Present: normal affect, normal mood Skin exam: Present: warm, dry, intact, normal color. Absent: rash Course Vital Signs 01/20/24 01/20/24 01/20/24 02:19 04:41 06:25 Temperature 98.8 F Pulse Rate 139 H 109 H 90 Respiratory 19 18 18 Rate Blood Pressure 154/103 138/91 124/83 O2 Sat by Pulse 98 96 93 L Oximetry 01/20/24 01/20/24 01/20/24 09:00 12:45 16:26 Temperature Pulse Rate 90 90 76 Respiratory 18 18 17 Rate Blood Pressure 133/89 128/87 134/76 O2 Sat by Pulse 95 98 98 Oximetry 01/21/24 03:25 Temperature Pulse Rate 96 Respiratory 16 Rate Blood Pressure 119/75 O2 Sat by Pulse 95 Oximetry - Reevaluation(s) Reevaluation #1: Medical records reviewed Reevaluation #2: Patient is showing significant withdrawal here in the ER thanks Reevaluation #3: Patient informed of results and questions answered Reevaluation #4: Was pt. sent in by a medical professional or institution (TYSON Damico, NETWORK DESIGN ARCHITECT, urgent care, hospital, or long term...) When possible be specific @ -no Did you speak to anyone other than the patient for history (EMS, parent, family, police, friend...)? What history was obtained from this source @ -no Did you review nursing and triage notes (agree or disagree)? Why? @ -agree Are old charts reviewed (outside hosp., previous admission, EMS record, old EKG, old radiological studies, urgent care reports/EKG's, long term records)? Rep ort findings @ -yes Differential Diagnosis (chest pain, altered mental status, abdominal pain women, abdominal pain men, vaginal bleeding, weakness, fever, dyspnea, syncope, headache, dizziness, GI bleed, back pain, seizure, CVA, palpatations, mental health, musculoskeletal)? @ -prior EKG interpreted by me (3pts min.). @ -no X-rays interpreted by me (1pt min.). @ -no CT interpreted by me (1pt min.). @ -no U/S interpreted by me (1pt. min.). @ -no What testing was considered but not performed or refused? (CT, X-rays, U/S, labs)? Why? @ -none What meds were considered but not given or refused? Why? @ -none Did you discuss the management of the patient with other professionals (cheri st i.e. TYSON Damico, NETWORK DESIGN ARCHITECT, lab, RT, psych nurse, social welfare clerk, patient centered care specialist, teacher, traffic officer, manager rn case)? Give summary @ -no Was smoking cessation discussed for >3mins.? @ -no Was critical care preformed (if so, how long)? @ -no Were there social determinants of health that impacted care today? How? (Homelessness, low income, unemployed, alcoholism, drug addiction, transportation, low edu. Level, literacy, decrease access to med. care, fdc, rehab)? @ -none Was there de-escalation of care discussed even if they declined (Discuss DNR or withdrawal of care, Hospice)? DNR status @ -no What co-morbidities impacted this encounter? (DM, HTN, Smoking, COPD, CAD, Cancer, CVA, ARF, Chemo, Hep., AIDS, mental health diagnosis, sleep apnea, morbid obesity)? @ -none Was patient admitted / discharged? Hospital course, mention meds given and route, prescriptions, significant lab abnormalities, going to OR and other pertinent info. @ - 58 male to the ER for evaluation patient presents today for evaluation going through alcohol withdrawal currently. Patient has n worsening in symptoms here in the ER and will admit for further evaluation and monitoring Admitted Undiagnosed new problem with uncertain prognosis? @ -no Drug Therapy requiring intensive monitoring for toxicity (Heparin, Nitro, Insulin, Cardizem)? @ -no Were any procedures done? @ -no Diagnosis/symptom? @ -Alcohol withdrawal DTs Acute, or Chronic, or Acute on Chronic? @ -Acute Uncomplicated (without systemic symptoms) or Complicated (systemic symptoms)? @ -Complicated Side effects of treatment? @ -no Exacerbation, Progression, or Severe Exacerbation? @ -exacerbation Poses a threat to life or bodily function? How? (Chest pain, [place], [place], pneumonia, PE, COPD, DKA, ARF, appy, cholecystitis, CVA, Diverticulitis, Homicidal, Suicidal, threat to staff... and all critical care pts) @ -yes with alcohol withdrawal symptoms Reevaluation #5: Differential Altered Mental Status: Hypoglycemia, DKA, hypercapnia, ETOH, overdose, CO poisoning, trauma, myxedema coma, HTN encephalopathy, infection, encephalitis, psychosis, intercranial hemorrhage, hepatic encephalopathy, meningitis, CVA, this is not meant to be an all-inclusive list - Consultations Consultation #1: Spoke with admitting who agreed to admit this patient Medical Decision Making - Medical Decision Making 58 male to the ER for evaluation patient presents today for evaluation going through alcohol withdrawal currently. Patient has n worsening in symptoms here in the ER and will admit for further evaluation and monitoring - Lab Data Result diagrams: 01/20/24 02:49 01/21/24 04:14 Lab Results 01/20/24 01/20/24 Range/Units 02:49 02:49 WBC 8.2 (3.8-10.6) k/uL RBC 4.42 (4.30-5.90) m/uL Hgb 14.1 (13.0-17.5) gm/dL Hct 40.8 (39.0-53.0) % MCV 92.3 (80.0-100.0) fL MCH 32.0 (25.0-35.0) pg MCHC 34.7 (31.0-37.0) g/dL RDW 13.8 (11.5-15.5) % Plt Count 186 (150-450) k/uL MPV 8.3 Neutrophils % 68 % Lymphocytes % 15 % Monocytes % 11 % Eosinophils % 1 % Basophils % 1 % Neutrophils # 5.6 (1.3-7.7) k/uL Lymphocytes # 1.2 (1.0-4.8) k/uL Monocytes # 0.9 (0-1.0) k/uL Eosinophils # 0.1 (0-0.7) k/uL Basophils # 0.0 (0-0.2) k/uL Sodium 128 L (137-145) mmol/L Potassium 3.4 L (3.5-5.1) mmol/L Chloride 89 L (98-107) mmol/L Carbon Dioxide 21 L (22-30) mmol/L Anion Gap 18 mmol/L BUN 14 (9-20) mg/dL Creatinine 0.78 (0.66-1.25) mg/dL Est GFR (CKD-EPI)AfAm >90 (>60 ml/min/1.73 sqM) Est GFR (CKD-EPI)NonAf >90 (>60 ml/min/1.73 sqM) Glucose 93 (74-99) mg/dL Calcium 9.7 (8.4-10.2) mg/dL Phosphorus 3.4 (2.5-4.5) mg/dL Magnesium 1.6 (1.6-2.3) mg/dL Total Bilirubin 2.1 H (0.2-1.3) mg/dL AST 72 H (17-59) U/L ALT 39 (4-49) U/L Alkaline Phosphatase 68 (38-126) U/L Total Protein 8.3 H (6.3-8.2) g/dL Albumin 5.2 H (3.5-5.0) g/dL Lipase 142 (23-300) U/L Serum Alcohol 10 mg/dL Disposition Clinical Impression: Alcohol use disorder, Alcohol withdrawal syndrome, Dehydration, Acute psychosi s, Acute anxiety Disposition: ADMITTED IP TO THIS HOSP Condition: Fair Is patient prescribed a controlled substance at d/c from ED?: No Time of Disposition: 04:00
[2024-01-20] MEDS: SODIUM CHLORIDE 0.9% 1,000 ML IV STA (03:10)
[2024-01-20 03:34] LABS: ALT 39 U/L (4-49); African American GFR (CKD) >90 (>60 ml/min/1.73 sqM); Albumin 5.2 g/dL (3.5-5.0); Alcohol 10 mg/dL; Anion Gap 18 mmol/L; Blood Urea Nitrogen 14 mg/dL (9-20); Calcium 9.7 mg/dL (8.4-10.2); Carbon Dioxide 21 mmol/L (22-30); Chloride 89 mmol/L (98-107); Glucose 93 mg/dL (74-99); Lipase 142 U/L (23-300); Non-African American GFR(CKD) >90 (>60 ml/min/1.73 sqM); Sodium 128 mmol/L (137-145); Total Bilirubin 2.1 mg/dL (0.2-1.3); Total Protein 8.3 g/dL (6.3-8.2)
[2024-01-20 03:40] LABS: AST 72 U/L (17-59); Alkaline Phosphatase 68 U/L (38-126); Magnesium 1.6 mg/dL (1.6-2.3); Phosphorus 3.4 mg/dL (2.5-4.5); Potassium 3.4 mmol/L (3.5-5.1)
[2024-01-20 03:41] LABS: Basophils % (A) 1 %; Eosinophils # (A) 0.1 k/uL (0-0.7); Eosinophils % (A) 1 %; HCT 40.8 % (39.0-53.0); HGB 14.1 gm/dL (13.0-17.5); Lymphocytes # (A) 1.2 k/uL (1.0-4.8); Lymphocytes % (A) 15 %; MCHC 34.7 g/dL (31.0-37.0); MCV 92.3 fL (80.0-100.0); Mean Platelet Volume 8.3; Monocytes # (A) 0.9 k/uL (0-1.0); Monocytes % (A) 11 %; Neutrophils # (A) 5.6 k/uL (1.3-7.7); Neutrophils % (A) 68 %; Platelet Count 186 k/uL (150-450); RBC 4.42 m/uL (4.30-5.90); RDW 13.8 % (11.5-15.5); WBC 8.2 k/uL (3.8-10.6)
[2024-01-20] MEDS ORDERED: NALOXONE 0.4 MG/ML 1 ML VIAL IV PRN (04:33)
[2024-01-20] MEDS ORDERED: LORazepam 0.5 MG TAB PO PRN (04:33)
[2024-01-20] MEDS ORDERED: ONDANSETRON 4 MG/2 ML VIAL IVP PRN (04:33)
[2024-01-20] MEDS ORDERED: LORazepam 1 MG TAB PO PRN ×4 (04:33)
[2024-01-20] MEDS ORDERED: LORazepam 2 MG/ML INJ IV PRN ×3 (04:33)
[2024-01-20] MEDS: LORazepam 2 MG/ML INJ IV STA (04:42)
[2024-01-20] MEDS: SODIUM CHLORIDE 0.9% 1,000 ML IV SCH (04:45)
--- NOTE | 2024-01-20 07:03 | P.HPIM ---
History of Present Illness H&P Date: 01/20/24 Chief Complaint: alcohol intoxication 58-year-old male with hypertension alcohol abuse history of schizophrenia Patient has heavily sedated at time of my evaluation history was obtained discussing the case with ED doctor and RN. Patient admitted for 500 cc of heavy liquor every day last drink was yesterday coming in reporting hallucinations and alcohol withdrawal symptoms. No report of suicidal or homicidal ideation patient does not know his medications at home no further history obtainable at this time review of systems Unable to obtain due to patient mental status on exam Constitutional: No acute distress sleeping difficult to arouse heavily sedated Eyes: Anicteric sclerae, moist conjunctiva, Pupils equal round reactive to light ENMT: NC/AT Oropharynx clear, no erythema, or exudates Neck: Supple, no masses, or JVD No carotid bruits No thyromegaly Lungs: Clear to auscultation Clear to percussion Normal respiratory effort, no accessory muscle use Cardiovascular: Heart regular in rate and rhythm, No murmurs, gallops, or rubs No peripheral edema Abdominal: Soft Nontender, no guarding, rebound or rigidity Abdomen moving with respiration Normoactive bowel sounds Extremities: No digital cyanosis No clubbing Pedal pulses intact and symmetrical Radial pulses intact and symmetrical No calf tenderness Psychiatric: Heavily sedated responds by moaning to verbal stimulation Neuro unable to assess Past Medical History Past Medical History: GERD/Reflux, Hypertension, Vascular Disorder Additional Past Medical History / Comment(s): ETOH abuse, alcohol withdrawl with tremens, diverticular disease, benign colon polyp, varicose veins. History of Any Multi-Drug Resistant Organisms: None Reported Past Surgical History: No Surgical Hx Reported Additional Past Surgical History / Comment(s): Teeth extractions, colonoscopies. Past Anesthesia/Blood Transfusion Reactions: No Reported Reaction Additional Past Anesthesia/Blood Transfusion Reaction / Comment(s): Never had Past Psychological History: Anxiety, Depression, Schizophrenia Smoking Status: Never smoker Past Alcohol Use History: Heavy Past Drug Use History: None Reported - Past Family History Father Family Medical History: Myocardial Infarction ([place]) Additional Family Medical History / Comment(s): AT AGE 58 FROM [place] Mother Family Medical History: Deep Vein Thrombosis (DVT), Hypertension Additional Family Medical History / Comment(s): PRIMARY PULMONARY HYPERTENSION Medications and Allergies Home Medications Medication Instructions Recorded Confirmed Type Aspirin 81 mg PO DAILY 30 Days tab 01/29/21 08/24/23 Rx fluPHENAZine decanoate [Prolixin 25 mg IM Q14D 08/03/22 08/24/23 History Decanoate] Pantoprazole Sodium [Protonix] 40 mg PO DAILY #15 tab 08/05/22 08/24/23 Rx Acetaminophen Tab [Tylenol] 650 mg PO TID PRN 08/07/23 08/24/23 History Cholecalciferol [Vitamin D3 (125 125 mcg PO DAILY 08/07/23 08/24/23 History Mcg = 5000 Iu)] Loratadine [Claritin] 10 mg PO DAILY 08/07/23 08/24/23 History amLODIPine [Norvasc] 10 mg PO DAILY 08/07/23 08/24/23 History fluPHENAZine decanoate [Prolixin 37.5 mg IM Q14D #1 ml 08/26/23 Rx Decanoate] Propranolol [Inderal] 20 mg PO DAILY #30 tab 08/27/23 Rx QUEtiapine [SEROquel] 50 mg PO HS #30 tab 08/27/23 Rx Allergies Allergy/AdvReac Type Severity Reaction Status Date / Time clozapine AdvReac Hypotension Verified 01/20/24 02:25 /Diarrhea divalproex sodium AdvReac Hyponatremi Verified 11/21/23 23:16 [From [facility]] a Physical Exam Vitals: Vital Signs Temp Pulse Resp BP Pulse Ox 01/20/24 06:25 90 18 124/83 93 L 01/20/24 04:41 109 H 18 138/91 96 01/20/24 02:19 98.8 F 139 H 19 154/103 98 Intake and Output 01/19/24 01/19/24 01/20/24 14:59 22:59 06:59 Other: Weight 95.254 kg Results CBC & Chem 7: 01/20/24 02:49 01/20/24 02:49 Labs: Abnormal Lab Results - Last 24 Hours (Table) 01/20/24 Range/Units 02:49 Sodium 128 L (137-145) mmol/L Potassium 3.4 L (3.5-5.1) mmol/L Chloride 89 L (98-107) mmol/L Carbon Dioxide 21 L (22-30) mmol/L Total Bilirubin 2.1 H (0.2-1.3) mg/dL AST 72 H (17-59) U/L Total Protein 8.3 H (6.3-8.2) g/dL Albumin 5.2 H (3.5-5.0) g/dL Assessment and Plan Assessment: 58-year-old male with schizophrenia hypertension alcohol abuse coming in reporting hallucinations and alcohol withdrawal symptoms discussed case with ED doctor and accepted the admission for alcohol drawl symptoms with anticipated length of stay more than 2 midnights Alcohol dependence with alcohol withdrawal syndrome Seizure and fall precautions Benzos per CIWA scale IV fluid hydration normal saline 130 cc/h Patient status post 1 L boluses of normal saline Hyponatremia euvolemic Less likely secondary to paraproteinemia Sodium level 128 Continue with IV fluid hydration normal saline as above Follow-up sodium every 4 hours Schizophrenia Acute psychosis with hallucinations Patient possibly noncompliant with his psych meds Psych evaluation No reported suicidal or homicidal ideation Hypertension Continue amlodipine Verify home meds Rest of blood work overall unremarkable BUN 14 creatinine 0.78 Hemoglobin 14.1 white count 8.2 Full code DVT prophylaxis Lovenox subcu 40 mg daily GI prophylaxis Protonix 40 mg p.o. daily
[2024-01-20] MEDS: MULTIVITAMINS, THERA 1 EACH TAB PO SCH (08:58)
[2024-01-20] MEDS: FOLIC ACID 1 MG TAB PO SCH (08:58)
[2024-01-20] MEDS: ENOXAPARIN 40 MG/0.4 ML SYRINGE SQ SCH (08:58)
[2024-01-20] MEDS: PANTOPRAZOLE 40 MG TABLET PO SCH (08:58)
[2024-01-20] MEDS: amLODIPine 10 MG TAB PO SCH (08:58)
--- NOTE | 2024-01-20 11:27 | P.PN ---
Subjective Progress Note Date: 01/20/24 Hospital course Patient is a 58-year-old male with a past medical history of hypertension, alcohol abuse and schizophrenia who presents to the ED with alcohol withdrawal and hallucinations. Patient was sedated in the ED. In ED patient found to have a sodium of 128. Patient admitted to the medicine service. Patient was given fluids. Patient was seen today. He was somnolent. He had no acute complaints Physical exam General examination - Alert and Oriented 3 in NAD Heart - + S1S2 no murmurs Lungs - Clear to auscultation Abdomen soft NT ND +ve BS Extremities - No edema ILLUMINATOR - Moving all 4 extremities spontaneously Psych -somnolent lethargic Alcohol dependence with alcohol withdrawal Seizure precaution [facility] protocol IV fluids 130 cc an hour Hypovolemic hyponatremia Continue with fluids Trend BMP Schizophrenia Acute psychosis with hallucinations Patient likely noncompliant with his psych meds Psych consult Hypertension Continue amlodipine DVT prophylaxis: Lovenox Objective - Vital Signs Vital signs: Vital Signs Temp 98.8 F 01/20/24 02:19 Pulse 90 01/20/24 09:00 Resp 18 01/20/24 09:00 BP 133/89 01/20/24 09:00 Pulse Ox 95 01/20/24 09:00 FiO2 Intake & Output 01/19/24 01/20/24 01/20/24 18:59 06:59 18:59 Weight 95.254 kg - Labs CBC & Chem 7: 01/20/24 02:49 01/20/24 02:49 Labs: Abnormal Lab Results - Last 24 Hours (Table) 01/20/24 Range/Units 02:49 Sodium 128 L (137-145) mmol/L Potassium 3.4 L (3.5-5.1) mmol/L Chloride 89 L (98-107) mmol/L Carbon Dioxide 21 L (22-30) mmol/L Total Bilirubin 2.1 H (0.2-1.3) mg/dL AST 72 H (17-59) U/L Total Protein 8.3 H (6.3-8.2) g/dL Albumin 5.2 H (3.5-5.0) g/dL
[2024-01-20 13:29] LABS: BUN/Creat Ratio 12.86 Ratio (12.00-20.00); Calcium 8.6 mg/dL (8.7-10.3); Carbon Dioxide 20.5 mmol/L (21.6-31.8); Chloride 96 mmol/L (96-109); Glucose 99 mg/dL (70-110); Potassium 3.4 mmol/L (3.5-5.5); Sodium 131 mmol/L (135-145)
--- NOTE | 2024-01-20 15:52 | P.CN ---
Psychiatric Consult - . Consult date: 01/20/24 Consult:: 01/20/24 15:52 CONSULTATION Reason for consult: Hearing voices. identifying Data: The patient is a 58-years old, single male, who lives in [facility] with his brother. Reason for admission: Bleeding from a cut close to right nipple. History of present illness: The patient was brought to the emergency department EMS for bleeding from the nipple. The patient was inebriated. He was hallucinating and exhibiting symptoms of alcohol withdrawal. As per patient he drinks every day and has been drinking daily since age 20. The patient is waiting to be transferred to medical floor for Alcohol withdrawal. The patient noted that he goes to [facility] for his out-pt treatment. He sees Dr. Frazier. His last visit with Dr. Frazier was on 01/06/24 but got cancelled. The patient noted that he gets Prolixin LA 50 mg every two weeks and Seroquel 50 mg. As per patient, his next shot is due tomorrow. The patient noted hearing voices. The voices are irritating him. He reported no other symptoms. He was focused on constipation. He wanted to get an Enema. On leading questions denied depression, anxiety, hopelessness, worthlessness, suicidal or homicidal ideations. The patient admitted to any symptoms of paranoia, and hearing voices. : History of past psychiatric illness: The patient has had several psychiatric admissions in the past. His last admission was here in 2023. He has diagnosis of Schizophrenia. No history of suicidal or homicidal ideations or behavior. Past medical history: GERD, HTN Vascular disorder. Substance abuse history: Alcohol Dependence MSE: Alert and attentive Orientation X3. Pleasant and cooperative. Psychomotor activity: Normal Speech: Normal tone, quality, and quantity Mood: I am anxious. Affect: Nervous. SI or HI: None Thought content: Exhibit paranoia. Thought process: Normal Perceptual disturbance: Reports hearing voices. Cognition: Intact Judgement and Insight: Fair Diagnosis: Alcohol dependence- in withdrawal H/O Schizophrenia- residual phase. Plan: Hold Prolixin D currently. Seroquel 25 mg po qhs. The patient will need out-pt psychiatric follow-up after discharge. Please arrange to get an appointment with Dr. Frazier within 5-7 days of Discharge. Sign off the case.
[2024-01-20] MEDS ORDERED: MAG HYDROX/AL HYDROX/SIMETH 30 ML CUP PO PRN (23:55)
[2024-01-21] MEDS: polyethylene glycoL 3350 17 GM POWD.PACK PO STA (00:20)
[2024-01-21 09:08] LABS: BUN/Creat Ratio 11.57 Ratio (12.00-20.00); Blood Urea Nitrogen 8.1 mg/dL (9.0-27.0); Calcium 9.3 mg/dL (8.7-10.3); Carbon Dioxide 21.1 mmol/L (21.6-31.8); Chloride 100 mmol/L (96-109); Glucose 101 mg/dL (70-110); Potassium 3.4 mmol/L (3.5-5.5); Sodium 135 mmol/L (135-145)
[2024-01-21] MEDS: polyethylene glycoL 3350 17 GM POWD.PACK PO SCH (09:31)
--- NOTE | 2024-01-21 10:47 | P.DS ---
Providers Date of admission: 01/20/24 04:34 Attending physician: Carlee Barnes MD Consults: 01/20/24 07:03 Consult Physician Routine Consulting Provider: Maury Yuen Reason/Comments: schizophrenia non compliant with meds Do you want consulting provider notified?: Yes Primary care physician: [facility] [place]: Discharge Diagnosis: Alcohol dependence Seizure precaution Hypovolemic hyponatremia: Resolved Schizophrenia Acute psychosis with hallucinations Hypertension Hospital Course: Patient is a 58-year-old male with a past medical history of hypertension, alcohol abuse and schizophrenia who presents to the ED with alcohol withdrawal and hallucinations. Patient was sedated in the ED. In ED patient found to have a sodium of 128. Patient admitted to the medicine service. Patient was given fluids. Patient's sodium level improved. Patient was seen by psychiatry who recommended that patient should follow-up with his psychiatrist in the next 5 to 7 days. Patient does have a follow-up appointment already with a psychiatrist early next month. Patient did not require any benzodiazepine for his alcohol withdrawal. At the time of discharge patient was calm and appropriate and showed no signs of alcohol withdrawal. Patient seen and examined at bedside.[] Vital signs reviewed and stable. General: [non toxic], [no distress], [appears at stated age] Derm: [warm], [dry] Head: [atraumatic], [normocephalic], [symmetric] Eyes: [EOMI], [no lid lag], [anicteric sclera] Mouth: [no lip lesion], [mucus membranes moist] Cardiovascular: [S1S2 reg], [no murmur], [positive posterior tibial pulse bilateral], Lungs: [CTA bilateral], [no rhonchi, no rales] , [no accessory muscle use] Abdominal: [soft], [ nontender to palpation], [no guarding], [no appreciable organomegaly] Ext: [no gross muscle atrophy], [no edema], [no contractures] Neuro: [ CN II-XI grossly intact], [no focal neuro deficits] Psych: [Alert], [oriented], [appropriate affect] A total of [33] minutes of time were spent preparing this complex discharge summary . Patient Condition at Discharge: Fair Plan - Discharge Summary Discharge Rx Participant: No New Discharge Prescriptions: Continue fluPHENAZine decanoate [Prolixin Decanoate] 50 mg IM Q14D Pantoprazole Sodium [Protonix] 40 mg PO DAILY #15 tab Acetaminophen Tab [Tylenol] 650 mg PO TID PRN PRN Reason: Fever And/ Or Pain Cholecalciferol [Vitamin D3 (125 Mcg = 5000 Iu)] 125 mcg PO DAILY Loratadine [Claritin] 10 mg PO DAILY Propranolol [Inderal] 20 mg PO DAILY #30 tab QUEtiapine [SEROquel] 50 mg PO HS #30 tab Aspirin 81 mg PO DAILY 30 Days tab amLODIPine [Norvasc] 10 mg PO DAILY Potassium Chloride ER [K-Dur 10] 10 meq PO DAILY Discharge Medication List Aspirin 81 mg PO DAILY 30 Days tab 01/29/21 [Rx] fluPHENAZine decanoate [Prolixin Decanoate] 50 mg IM Q14D 08/03/22 [History] Pantoprazole Sodium [Protonix] 40 mg PO DAILY #15 tab 08/05/22 [Rx] Acetaminophen Tab [Tylenol] 650 mg PO TID PRN 08/07/23 [History] Cholecalciferol [Vitamin D3 (125 Mcg = 5000 Iu)] 125 mcg PO DAILY 08/07/23 [History] Loratadine [Claritin] 10 mg PO DAILY 08/07/23 [History] amLODIPine [Norvasc] 10 mg PO DAILY 08/07/23 [History] Propranolol [Inderal] 20 mg PO DAILY #30 tab 08/27/23 [Rx] QUEtiapine [SEROquel] 50 mg PO HS #30 tab 08/27/23 [Rx] Potassium Chloride ER [K-Dur 10] 10 meq PO DAILY 01/20/24 [History] Follow up Appointment(s)/Referral(s): [facility] [Primary Care Provider] - 1-2 days Discharge Disposition: HOME SELF-CARE
[2024-01-21 13:23] VITALS: BP 116/76; PULSE 100; RESP 18; TEMP 98.5
[2024-01-21] MEDS: NA PHOS,M-B/NA PHOS,DI-BA 133 ML ENEMA RECTAL ONE (16:00)
== END 2024-01-21 16:00 | disposition home or self-care (01) | DRG 897 ==
LOC: EC 02:14 → 5NMEDONC 04:34 → 4SSUR 18:14
PROVIDERS: ADMIT Internal Medicine; ATTEND Internal Medicine
DX: F10.229 Alcohol dependence with intoxication, unspecified (principal); S21.111A Laceration without foreign body of right front wall of thorax without penetration into thoracic cavity, initial encounter; E87.1 Hypo-osmolality and hyponatremia; F10.239 Alcohol dependence with withdrawal, unspecified; F20.9 Schizophrenia, unspecified; I10 Essential (primary) hypertension; F41.9 Anxiety disorder, unspecified; E86.0 Dehydration; T43.506A Underdosing of unspecified antipsychotics and neuroleptics, initial encounter; E86.1 Hypovolemia; Y90.0 Blood alcohol level of less than 20 mg/100 ml; Z87.19 Personal history of other diseases of the digestive system; Z79.82 Long term (current) use of aspirin; Z79.899 Other long term (current) drug therapy; Z91.148 Patient's other noncompliance with medication regimen for other reason
CPT/HCPCS: 36415; 80048; 80053; 80320; 82075; 83690; 83735; 84100; 85025; 96361; 96372; 96374; 96375; 96376; 99285

== ENCOUNTER 2024-02-14 07:12 | Emergency (ER) | payer MEDICARE, OTHER ==
[2024-02-14 07:20] VITALS: TEMP 98.3
--- NOTE | 2024-02-14 07:56 | ED ---
General Adult HPI - General Chief complaint: Abdominal Pain Stated complaint: Abd pain Time Seen by Provider: 02/14/24 07:15 Source: patient, EMS, RN notes reviewed, old records reviewed Mode of arrival: EMS - History of Present Illness Initial comments: This is a 58-year-old male who presents to the emergency department stating that he has been vomiting all night and that is why he came in. Patient states that started about 3 days ago. Patient denies any abdominal pain patient [place] chest pain difficulty breathing shortness of breath. Patient has any fever chills. Patient denies any diarrhea. Patient is somewhat delusional he is talking to the TV and thinks the TV is watching him. Patient also states that he is suing all of the court people $[phone] trillion. Patient is not suicidal or homicidal. Patient thinks that someone may have poisoned his food even [employer] might have done it. - Related Data Home Medications Medication Instructions Recorded Confirmed fluPHENAZine decanoate [Prolixin 50 mg IM Q14D 08/03/22 01/20/24 Decanoate] Acetaminophen Tab [Tylenol] 650 mg PO TID PRN 08/07/23 01/20/24 Cholecalciferol [Vitamin D3 (125 125 mcg PO DAILY 08/07/23 01/20/24 Mcg = 5000 Iu)] Loratadine [Claritin] 10 mg PO DAILY 08/07/23 01/20/24 amLODIPine [Norvasc] 10 mg PO DAILY 08/07/23 01/20/24 Potassium Chloride ER [K-Dur 10] 10 meq PO DAILY 01/20/24 01/20/24 Previous Rx's Medication Instructions Recorded Aspirin 81 mg PO DAILY 30 Days tab 01/29/21 Pantoprazole Sodium [Protonix] 40 mg PO DAILY #15 tab 08/05/22 Propranolol [Inderal] 20 mg PO DAILY #30 tab 08/27/23 QUEtiapine [SEROquel] 50 mg PO HS #30 tab 08/27/23 Allergies Allergy/AdvReac Type Severity Reaction Status Date / Time clozapine AdvReac Hypotension Verified 02/14/24 07:18 /Diarrhea divalproex sodium AdvReac Hyponatremi Verified 02/14/24 07:18 [From Depakote] a Review of Systems ROS Statement: Those systems with pertinent positive or pertinent negative responses have been documented in the HPI. ROS Other: All systems not noted in ROS Statement are negative. Past Medical History Past Medical History: GERD/Reflux, Hypertension, Vascular Disorder Additional Past Medical History / Comment(s): ETOH abuse, alcohol withdrawl with tremens, diverticular disease, benign colon polyp, varicose veins. History of Any Multi-Drug Resistant Organisms: None Reported Past Surgical History: No Surgical Hx Reported Additional Past Surgical History / Comment(s): Teeth extractions, colonoscopies. Past Anesthesia/Blood Transfusion Reactions: No Reported Reaction Additional Past Anesthesia/Blood Transfusion Reaction / Comment(s): Never had Past Psychological History: Anxiety, Depression, Schizophrenia Smoking Status: Never smoker Past Alcohol Use History: Heavy Past Drug Use History: None Reported - Past Family History Father Family Medical History: Myocardial Infarction ([place]) Additional Family Medical History / Comment(s): AT AGE 58 FROM [place] Mother Family Medical History: Deep Vein Thrombosis (DVT), Hypertension Additional Family Medical History / Comment(s): PRIMARY PULMONARY HYPERTENSION General Exam - General Exam Comments Initial Comments: GENERAL: Patient is well-developed and well-nourished. Patient is nontoxic and well- hydrated and is in no acute distress. ENT: Neck is soft and supple. No significant lymphadenopathy is noted. Oropharynx is clear. Moist mucous membranes. Neck has full range of motion without eliciting any pain. There is no thyroid enlargement and no masses were felt. EYES: The sclera were anicteric and conjunctiva were pink and moist. Extraocular movements were intact and pupils were equal round and reactive to light. Eyelids were unremarkable. PULMONARY: Unlabored respirations. Good breath sounds bilaterally. No audible rales rhonc hi or wheezing was noted. CARDIOVASCULAR: There is a regular rate and rhythm without any murmurs gallops or rubs. Femoral pulses are equal bilaterally ABDOMEN: Soft and nontender with normal bowel sounds. No palpable organomegaly was noted. There is no palpable pulsatile mass. SKIN: Skin is clear with no lesions or rashes and otherwise unremarkable. NEUROLOGIC: Patient is alert and oriented x3. Cranial nerves II through XII are grossly intact. Motor and sensory are also intact. Normal speech, volume and content. Symmetrical smile. Cerebellar exam grossly intact. MUSCULOSKELETAL: Normal extremities with adequate strength and full range of motion. No lower extremity swelling or edema. No calf tenderness. LYMPHATICS: No significant lymphadenopathy is noted PSYCHIATRIC: Patient is delusional thinking he is feeling the court and possibly [employer] for $100 trillion. Patient also thinks that the TV is talking to him and he is talking back to the TV. Course Vital Signs 02/14/24 02/14/24 02/14/24 07:13 07:53 08:42 Temperature 98.3 F Pulse Rate 104 H 95 Respiratory 20 18 Rate Blood Pressure 194/130 158/113 153/103 O2 Sat by Pulse 95 96 Oximetry 02/14/24 09:31 Temperature Pulse Rate 103 H Respiratory 16 Rate Blood Pressure 139/88 O2 Sat by Pulse 98 Oximetry Medical Decision Making - Medical Decision Making Was pt. sent in by a medical professional or institution (, PA, SAFETY PERSON, urgent care, hospital, or detention...) When possible be specific @ -No Did you speak to anyone other than the patient for history (EMS, parent, family, police, friend...)? What history was obtained from this source @ -No Did you review nursing and triage notes (agree or disagree)? Why? @ -I reviewed and agree with nursing and triage notes Were old charts reviewed (outside hosp., previous admission, EMS record, old EKG, old radiological studies, urgent care reports/EKG's, detention records)? Report findings @ -No old charts were reviewed Differential Diagnosis? @ -Gastritis, gastroenteritis, viral syndrome, this is not an all-inclusive list EKG interpreted by me (3pts min.). @ -As above X-rays interpreted by me (1pt min.). @ -KUB shows no acute abnormality CT interpreted by me (1pt min.). @ -None done U/S interpreted by me (1pt. min.). @ -None done What testing was considered but not performed or refused? (CT, X-rays, U/S, labs)? Why? @ -None What meds were considered but not given or refused? Why? @ -None Did you discuss the management of the patient with other professionals (professionals i.e. , TYSON, SAFETY PERSON, lab, RT, psych nurse, bilingual social worker, chemical detection expert, teacher, [place] 9 police officer, skilled nursing case manager)? Give summary @ -No Was smoking cessation discussed for >3mins.? @ -No Was critical care preformed (if so, how long)? @ -No Were there social determinants of health that impacted care today? How? (Homelessness, low income, unemployed, alcoholism, drug addiction, transportation, low edu. Level, literacy, decrease access to med. care, penitentiary, rehab)? @ -No Was there de-escalation of care discussed even if they declined (Discuss DNR or withdrawal of care, Hospice)? DNR status @ -No What co-morbidities impacted this encounter? (DM, HTN, Smoking, COPD, CAD, Cancer, CVA, ARF, Chemo, Hep., AIDS, mental health diagnosis, sleep apnea, morbid obesity)? @ -None Was patient admitted / discharged? Hospital course, mention meds given and route, prescriptions, significant lab abnormalities, going to OR and other pertinent info. @ -Patient had no abdominal complaints while here though he did state he was nauseous but never vomited. According to EMS patient's baseline is delusional and is always talking about suing the courts and things and he is very consistent with that. EMS stated his psychiatric state is baseline to them and they have seen him many times. Patient got Zofran and fluids and I went back into the room he was no longer nauseous. Undiagnosed new problem with uncertain prognosis? @ -No Drug Therapy requiring intensive monitoring for toxicity (Heparin, Nitro, Insulin, Cardizem)? @ -No Were any procedures done? @ -No Diagnosis/symptom? @ -Acute vomiting Acute, or Chronic, or Acute on Chronic? @ -Acute Uncomplicated (without systemic symptoms) or Complicated (systemic symptoms)? @ -@Uncomplicated Side effects of treatment? @ -No Exacerbation, Progression, or Severe Exacerbation? @ -No Poses a threat to life or bodily function? How? (Chest pain, [place], [place], pneumonia, PE, COPD, DKA, ARF, appy, cholecystitis, CVA, Diverticulitis, Homicidal, Suicidal, threat to staff... and all critical care pts) @ -No - Lab Data Result diagrams: 02/14/24 07:53 02/14/24 07:53 Lab Results 02/14/24 02/14/24 Range/Units 07:53 07:53 WBC 6.0 (3.8-10.6) k/uL RBC 4.43 (4.30-5.90) m/uL Hgb 14.5 (13.0-17.5) gm/dL Hct 40.4 (39.0-53.0) % MCV 91.1 (80.0-100.0) fL MCH 32.7 (25.0-35.0) pg MCHC 35.8 (31.0-37.0) g/dL RDW 13.8 (11.5-15.5) % Plt Count 223 (150-450) k/uL MPV 8.9 Neutrophils % 59 % Lymphocytes % 27 % Monocytes % 10 % Eosinophils % 2 % Basophils % 1 % Neutrophils # 3.5 (1.3-7.7) k/uL Lymphocytes # 1.6 (1.0-4.8) k/uL Monocytes # 0.6 (0-1.0) k/uL Eosinophils # 0.1 (0-0.7) k/uL Basophils # 0.0 (0-0.2) k/uL Hyperchromasia Slight Sodium 131 L (137-145) mmol/L Potassium 3.3 L (3.5-5.1) mmol/L Chloride 96 L (98-107) mmol/L Carbon Dioxide 21 L (22-30) mmol/L Anion Gap 14 mmol/L BUN 3 L (9-20) mg/dL Creatinine 0.54 L (0.66-1.25) mg/dL Est GFR (CKD-EPI)AfAm >90 (>60 ml/min/1.73 sqM) Est GFR (CKD-EPI)NonAf >90 (>60 ml/min/1.73 sqM) Glucose 95 (74-99) mg/dL Calcium 9.2 (8.4-10.2) mg/dL Total Bilirubin 2.1 H (0.2-1.3) mg/dL AST 39 (17-59) U/L ALT 39 (4-49) U/L Alkaline Phosphatase 58 (38-126) U/L Total Protein 7.6 (6.3-8.2) g/dL Albumin 4.4 (3.5-5.0) g/dL Amylase 44 (30-110) U/L Lipase 99 (23-300) U/L Disposition Clinical Impression: Vomiting Disposition: HOME SELF-CARE Condition: Good Instructions (If sedation given, give patient instructions): Acute Nausea and Vomiting (ED) Is patient prescribed a controlled substance at d/c from ED?: No Referrals: [facility] [Primary Care Provider] - 1-2 days Time of Disposition: 11:04
[2024-02-14] MEDS: ONDANSETRON 4 MG/2 ML VIAL IVP STA (08:02)
[2024-02-14] MEDS: SODIUM CHLORIDE 0.9% 500 ML 500 ML IV STA (08:06)
[2024-02-14] MEDS: hydrALAZINE HCL 20 MG/ML 1 ML VIAL IVP STA (08:43)
[2024-02-14 09:08] LABS: ALT 39 U/L (4-49); AST 39 U/L (17-59); African American GFR (CKD) >90 (>60 ml/min/1.73 sqM); Albumin 4.4 g/dL (3.5-5.0); Alkaline Phosphatase 58 U/L (38-126); Amylase 44 U/L (30-110); Anion Gap 14 mmol/L; Blood Urea Nitrogen 3 mg/dL (9-20); Calcium 9.2 mg/dL (8.4-10.2); Carbon Dioxide 21 mmol/L (22-30); Chloride 96 mmol/L (98-107); Glucose 95 mg/dL (74-99); Lipase 99 U/L (23-300); Non-African American GFR(CKD) >90 (>60 ml/min/1.73 sqM); Potassium 3.3 mmol/L (3.5-5.1); Sodium 131 mmol/L (137-145); Total Bilirubin 2.1 mg/dL (0.2-1.3); Total Protein 7.6 g/dL (6.3-8.2)
[2024-02-14 09:12] LABS: Basophils % (A) 1 %; Eosinophils # (A) 0.1 k/uL (0-0.7); Eosinophils % (A) 2 %; HCT 40.4 % (39.0-53.0); HGB 14.5 gm/dL (13.0-17.5); Hyperchromasia Slight; Lymphocytes # (A) 1.6 k/uL (1.0-4.8); Lymphocytes % (A) 27 %; MCH 32.7 pg (25.0-35.0); MCHC 35.8 g/dL (31.0-37.0); MCV 91.1 fL (80.0-100.0); Mean Platelet Volume 8.9; Monocytes # (A) 0.6 k/uL (0-1.0); Monocytes % (A) 10 %; Neutrophils # (A) 3.5 k/uL (1.3-7.7); Neutrophils % (A) 59 %; Platelet Count 223 k/uL (150-450); RBC 4.43 m/uL (4.30-5.90); RDW 13.8 % (11.5-15.5)
--- NOTE | 2024-02-14 10:32 | XR ---
KUB. HISTORY: Constipation for 4 days COMPARISON: 01/16/2024 TECHNIQUE: 2 upright views of the abdomen were obtained. FINDINGS: The lung bases are clear. There is no free intraperitoneal air beneath the diaphragm. The bowel gas pattern is nonspecific and there is no evidence of obstruction. There is mild stool wit hin the colon. There is no large amount of stool within the rectum. No suspicious abdominal or pelvic calcifications are seen. The osseous structures are intact. IMPRESSION: Nonspecific abdomen without evidence of free air or obstruction. No significant stool burden within t he colon or rectum. [facility], Workstation: [facility], 02/14/2024 10:30 AM
[2024-02-14 11:19] VITALS: BP 143/93; PULSE 97; RESP 18
== END 2024-02-14 11:19 | disposition home or self-care (01) ==
LOC: EC 07:12
CPT/HCPCS: 36415; 74018; 80053; 82150; 83690; 85025; 96361; 96374; 96375; 99284

== ENCOUNTER 2024-02-14 14:21 | Emergency (ER) | payer MEDICARE, OTHER ==
[2024-02-14 14:29] VITALS: TEMP 97.4
--- NOTE | 2024-02-14 14:55 | ED ---
General Adult HPI - General Chief complaint: Psychiatric Symptoms Stated complaint: vomiting Time Seen by Provider: 02/14/24 14:22 Source: patient Mode of arrival: EMS Limitations: no limitations - History of Present Illness Initial comments: This patient is a 58-year-old man who presents with complaint that vomiting has recurred. He has had 3 days of vomiting, and came to be seen here this morning. Patient's workup was largely unremarkable, he was feeling better and went home. The patient states that after being discharged he went to eat at [employer] and he had a recurrence of the vomiting. The patient denies any hematemesis or coffee- ground material. He states he is not really having any pain right now. Patient is concerned about possibility of food poisoning. No fever or chills. No change in bowel movements. No change in urination. Onset/Timin -: days(s) Severity scale (1-10): 0 Consistency: constant Improves with: none Worsens with: none Associated Symptoms: nausea/vomiting Treatments Prior to Arrival: none - Related Data Home Medications Medication Instructions Recorded Confirmed Cholecalciferol [Vitamin D3 (125 125 mcg PO DAILY 08/07/23 02/22/24 Mcg = 5000 Iu)] Loratadine [Claritin] 10 mg PO DAILY 08/07/23 02/22/24 amLODIPine [Norvasc] 10 mg PO DAILY 08/07/23 02/22/24 Previous Rx's Medication Instructions Recorded Aspirin 81 mg PO DAILY 30 Days tab 01/29/21 Pantoprazole Sodium [Protonix] 40 mg PO DAILY #15 tab 08/05/22 Propranolol [Inderal] 20 mg PO DAILY #30 tab 08/27/23 Ondansetron Odt [Zofran ODT] 4 mg PO Q8HR PRN #10 tab 02/16/24 Tamsulosin [Flomax] 0.4 mg PO PC-SUPPER #0 cap 02/22/24 Thiamine [Vitamin B-1] 100 mg PO DAILY tab 02/22/24 QUEtiapine [SEROquel] 25 mg PO HS 30 Days #30 tab 03/02/24 fluPHENAZine decanoate [Prolixin 50 mg IM [id number] 14 Days #1 ml 03/02/24 Decanoate] Allergies Allergy/AdvReac Type Severity Reaction Status Date / Time clozapine AdvReac Hypotension Verified 02/19/24 17:16 /Diarrhea divalproex sodium AdvReac Hyponatremi Verified 02/19/24 17:16 [From Depakote] a Review of Systems ROS Statement: Those systems with pertinent positive or pertinent negative responses have been documented in the HPI. ROS Other: All systems not noted in ROS Statement are negative. Constitutional: Denies: fever, chills Respiratory: Denies: cough, dyspnea Cardiovascular: Denies: chest pain, palpitations Gastrointestinal: Reports: nausea, vomiting. Denies: abdominal pain, diarrhea, hematemesis, melena, hematochezia Genitourinary: Denies: dysuria, hematuria, testicular pain Musculoskeletal: Denies: back pain Skin: Denies: rash Neurological: Denies: headache, weakness, numbness Past Medical History Past Medical History: GERD/Reflux, Hypertension, Vascular Disorder Additional Past Medical History / Comment(s): ETOH abuse, alcohol withdrawl with tremens, diverticular disease, benign colon polyp, varicose veins. History of Any Multi-Drug Resistant Organisms: None Reported Past Surgical History: No Surgical Hx Reported Additional Past Surgical History / Comment(s): Teeth extractions, colonoscopies. Past Anesthesia/Blood Transfusion Reactions: No Reported Reaction Additional Past Anesthesia/Blood Transfusion Reaction / Comment(s): Never had Past Psychological History: Anxiety, Depression, Schizophrenia Smoking Status: Never smoker Past Alcohol Use History: Heavy Past Drug Use History: None Reported - Past Family History Father Family Medical History: Myocardial Infarction ([place]) Additional Family Medical History / Comment(s): AT AGE 58 FROM [place] Mother Family Medical History: Deep Vein Thrombosis (DVT), Hypertension Additional Family Medical History / Comment(s): PRIMARY PULMONARY HYPERTENSION General Exam Limitations: no limitations General appearance: alert, in no apparent distress Head exam: Present: atraumatic, normocephalic Eye exam: Present: normal appearance. Absent: scleral icterus, conjunctival injection ENT exam: Present: mucous membranes dry Neck exam: Present: normal inspection Respiratory exam: Present: normal lung sounds bilaterally. Absent: respiratory distress, wheezes, rales, rhonchi, stridor, accessory muscle use Cardiovascular Exam: Present: regular rate, normal rhythm, normal heart sounds. Absent: systolic murmur, diastolic murmur, rubs, gallop GI/Abdominal exam: Present: soft. Absent: distended, tenderness, guarding, rebound, rigid, mass Extremities exam: Present: normal inspection, normal capillary refill. Absent: pedal edema, calf tenderness Back exam: Present: normal inspection. Absent: CVA tenderness (R), CVA tenderness (L) Neurological exam: Present: alert Skin exam: Present: warm, dry, intact, normal color. Absent: rash Course Vital Signs 02/14/24 02/14/24 02/14/24 14:23 15:24 17:00 Temperature 97.4 F L Pulse Rate 114 H 103 H 108 H Respiratory 18 16 16 Rate Blood Pressure 149/98 143/95 151/87 O2 Sat by Pulse 97 97 97 Oximetry 02/14/24 18:17 Temperature Pulse Rate 99 Respiratory 18 Rate Blood Pressure 144/78 O2 Sat by Pulse 97 Oximetry Medical Decision Making - Medical Decision Making Was pt. sent in by a medical professional or institution (Dr. PA, BASIC ACOUSTIC ANALYST, urgent care, hospital, or fci...) When possible be specific @ -[No] Did you speak to anyone other than the patient for history (EMS, parent, family, police, friend...)? What history was obtained from this source @ -[No] Did you review nursing and triage notes (agree or disagree)? Why? @ -[I reviewed and agree with nursing and triage notes] Were old charts reviewed (outside hosp., previous admission, EMS record, old EKG, old radiological studies, urgent care reports/EKG's, fci records)? Report findings @ -[No old charts were reviewed] Differential Diagnosis (chest pain, altered mental status, abdominal pain women, abdominal pain men, vaginal bleeding, weakness, fever, dyspnea, syncope, heada ventura, dizziness, GI bleed, back pain, seizure, CVA, palpatations, mental health, musculoskeletal)? @ -[Differential Mental Health Depression, anxiety, bipolar, psychosis, schizophrenia, borderline personality, situational depression, adjustment disorder, behavioral disorder, brain tumor, malingering, substance abuse, encephalopathy, medication reaction, dementia, hypothyroidism, degenerative neurologic disorder, lupus.... This is not meant to be all-inclusive list EKG interpreted by me (3pts min.). @ -[As above] X-rays interpreted by me (1pt min.). @ -[None done] CT interpreted by me (1pt min.). @ -[None done] U/S interpreted by me (1pt. min.). @ -[None done] What testing was considered but not performed or refused? (CT, X-rays, U/S, labs)? Why? @ -[None] What meds were considered but not given or refused? Why? @ -[None] Did you discuss the management of the patient with other professionals (professionals i.e. DrConrado, PA, BASIC ACOUSTIC ANALYST, lab, RT, psych nurse, social work coordinator, broach operator, teacher, home lending officer, showcase trimmer)? Give summary @ -[No] Was smoking cessation discussed for >3mins.? @ -[No] Was critical care preformed (if so, how long)? @ -[No] Were there social determinants of health that impacted care today? How? (Homelessness, low income, unemployed, alcoholism, drug addiction, transportation, low edu. Level, literacy, decrease access to med. care, fci, rehab)? @ -[No] Was there de-escalation of care discussed even if they declined (Discuss DNR or withdrawal of care, Hospice)? DNR status @ -[No] What co-morbidities impacted this encounter? (DM, HTN, Smoking, COPD, CAD, Cancer, CVA, ARF, Chemo, Hep., AIDS, mental health diagnosis, sleep apnea, morbid obesity)? @ -[None] Was patient admitted / discharged? Hospital course, mention meds given and route, prescriptions, significant lab abnormalities, going to OR and other pertinent info. @ -[On reevaluation, patient is feeling better and at this point stable for discharge. Discussed return parameters. Undiagnosed new problem with uncertain prognosis? @ -[No] Drug Therapy requiring intensive monitoring for toxicity (Heparin, Nitro, Insulin, Cardizem)? @ -[No] Were any procedures done? @ -[No] Diagnosis/symptom? @ -[Acute psychosis Nausea and vomiting Acute, or Chronic, or Acute on Chronic? @ -[default] Uncomplicated (without systemic symptoms) or Complicated (systemic symptoms)? @ -[default] Side effects of treatment? @ -[No] Exacerbation, Progression, or Severe Exacerbation? @ -[No] Poses a threat to life or bodily function? How? (Chest pain, [place], [place], pneumonia, PE, COPD, DKA, ARF, appy, cholecystitis, CVA, Diverticulitis, Homicidal, Suicidal, threat to staff... and all critical care pts) @ -[No] - Lab Data Result diagrams: 02/14/24 15:01 02/14/24 15:01 Lab Results 02/14/24 02/14/24 Range/Units 15:01 15:01 WBC 6.0 (3.8-10.6) k/uL RBC 4.61 (4.30-5.90) m/uL Hgb 15.2 (13.0-17.5) gm/dL Hct 41.9 (39.0-53.0) % MCV 90.9 (80.0-100.0) fL MCH 32.9 (25.0-35.0) pg MCHC 36.2 (31.0-37.0) g/dL RDW 13.6 (11.5-15.5) % Plt Count 242 (150-450) k/uL MPV 7.7 Neutrophils % 67 % Lymphocytes % 17 % Monocytes % 12 % Eosinophils % 1 % Basophils % 0 % Neutrophils # 4.0 (1.3-7.7) k/uL Lymphocytes # 1.0 (1.0-4.8) k/uL Monocytes # 0.7 (0-1.0) k/uL Eosinophils # 0.1 (0-0.7) k/uL Basophils # 0.0 (0-0.2) k/uL Hyperchromasia Slight Sodium 133 L (137-145) mmol/L Potassium 3.6 (3.5-5.1) mmol/L Chloride 102 (98-107) mmol/L Carbon Dioxide 22 (22-30) mmol/L Anion Gap 9 mmol/L BUN 5 L (9-20) mg/dL Creatinine 0.68 (0.66-1.25) mg/dL Est GFR (CKD-EPI)AfAm >90 (>60 ml/min/1.73 sqM) Est GFR (CKD-EPI)NonAf >90 (>60 ml/min/1.73 sqM) Glucose 104 H (74-99) mg/dL Calcium 9.4 (8.4-10.2) mg/dL Total Bilirubin 1.9 H (0.2-1.3) mg/dL AST 38 (17-59) U/L ALT 37 (4-49) U/L Alkaline Phosphatase 61 (38-126) U/L C-Reactive Protein 0.6 (<1.0) mg/dL Total Protein 7.5 (6.3-8.2) g/dL Albumin 4.9 (3.5-5.0) g/dL Amylase 50 (30-110) U/L Lipase 101 (23-300) U/L TSH 0.993 (0.465-4.680) mIU/L Serum Alcohol 50 mg/dL Disposition Clinical Impression: Vomiting, Dehydration, Acute psychosis Disposition: HOME SELF-CARE Condition: Good Instructions (If sedation given, give patient instructions): Acute Nausea and Vomiting (ED) Is patient prescribed a controlled substance at d/c from ED?: No Referrals: [facility] [Primary Care Provider] - 1-2 days
[2024-02-14] MEDS: ONDANSETRON 4 MG/2 ML VIAL IVP STA (15:05)
[2024-02-14] MEDS: SODIUM CHLORIDE 0.9% 500 ML 500 ML IV STA (15:06)
[2024-02-14 15:18] LABS: ALT 37 U/L (4-49); AST 38 U/L (17-59); African American GFR (CKD) >90 (>60 ml/min/1.73 sqM); Albumin 4.9 g/dL (3.5-5.0); Alcohol 50 mg/dL; Alkaline Phosphatase 61 U/L (38-126); Amylase 50 U/L (30-110); Anion Gap 9 mmol/L; Blood Urea Nitrogen 5 mg/dL (9-20); C Reactive Protein 0.6 mg/dL (<1.0); Calcium 9.4 mg/dL (8.4-10.2); Carbon Dioxide 22 mmol/L (22-30); Chloride 102 mmol/L (98-107); Glucose 104 mg/dL (74-99); Lipase 101 U/L (23-300); Non-African American GFR(CKD) >90 (>60 ml/min/1.73 sqM); Potassium 3.6 mmol/L (3.5-5.1); Sodium 133 mmol/L (137-145); Total Bilirubin 1.9 mg/dL (0.2-1.3); Total Protein 7.5 g/dL (6.3-8.2)
[2024-02-14 15:19] LABS: Basophils % (A) 0 %; Eosinophils # (A) 0.1 k/uL (0-0.7); Eosinophils % (A) 1 %; HCT 41.9 % (39.0-53.0); HGB 15.2 gm/dL (13.0-17.5); Hyperchromasia Slight; Lymphocytes % (A) 17 %; MCH 32.9 pg (25.0-35.0); MCHC 36.2 g/dL (31.0-37.0); MCV 90.9 fL (80.0-100.0); Mean Platelet Volume 7.7; Monocytes # (A) 0.7 k/uL (0-1.0); Monocytes % (A) 12 %; Neutrophils % (A) 67 %; Platelet Count 242 k/uL (150-450); RBC 4.61 m/uL (4.30-5.90); RDW 13.6 % (11.5-15.5)
[2024-02-14 18:18] VITALS: BP 144/78; PULSE 99; RESP 18
== END 2024-02-14 18:18 | disposition home or self-care (01) ==
LOC: EC 14:21
DX: R11.2 Nausea with vomiting, unspecified (principal); E86.0 Dehydration; F23 Brief psychotic disorder; Z88.8 Allergy status to other drugs, medicaments and biological substances
CPT/HCPCS: 82075; 36415; 80053; 82150; 83690; 84443; 85025; 86140; 99284; 96374; G0480; J2405; 80320

== ENCOUNTER 2024-02-16 06:56 | Emergency (ER) | payer MEDICARE, OTHER ==
[2024-02-16 07:06] VITALS: TEMP 98
[2024-02-16 07:23] LABS: Basophils % (A) 0 %; Eosinophils # (A) 0.2 k/uL (0-0.7); Eosinophils % (A) 3 %; HCT 46.8 % (39.0-53.0); HGB 15.8 gm/dL (13.0-17.5); Lymphocytes # (A) 1.3 k/uL (1.0-4.8); Lymphocytes % (A) 18 %; MCH 31.7 pg (25.0-35.0); MCHC 33.8 g/dL (31.0-37.0); MCV 93.7 fL (80.0-100.0); Mean Platelet Volume 7.7; Monocytes # (A) 0.7 k/uL (0-1.0); Monocytes % (A) 10 %; Neutrophils # (A) 4.7 k/uL (1.3-7.7); Neutrophils % (A) 66 %; Platelet Count 247 k/uL (150-450); RDW 13.3 % (11.5-15.5); WBC 7.1 k/uL (3.8-10.6)
[2024-02-16] MEDS: SODIUM CHLORIDE 0.9% 2,000 ML IV STA (07:26)
[2024-02-16] MEDS: diphenhydrAMINE 50 MG/ML 1 ML VIAL IVP STA (07:26)
[2024-02-16] MEDS: METOCLOPRAMIDE 5 MG/ML 2 ML VIAL IVP STA (07:28)
--- NOTE | 2024-02-16 07:34 | ED ---
General Adult HPI - General Chief complaint: Nausea/Vomiting/Diarrhea Stated complaint: NVD Time Seen by Provider: 02/16/24 06:58 Source: patient, EMS, RN notes reviewed Mode of arrival: EMS Limitations: no limitations - History of Present Illness Initial comments: 58-year-old male presents emergency department chief complaint of nausea vomiting. This been ongoing issue in which patient has been seen here several times. Patient does admit to alcohol use but states he last used yesterday denies any withdrawal symptoms denies chest pain shortness of breath he states he just has an upset stomach no significant change in bowel habits no dysuria denies any sick contacts. Patient is concerned about being dehydrated. - Related Data Home Medications Medication Instructions Recorded Confirmed fluPHENAZine decanoate [Prolixin 50 mg IM Q14D 08/03/22 01/20/24 Decanoate] Acetaminophen Tab [Tylenol] 650 mg PO TID PRN 08/07/23 01/20/24 Cholecalciferol [Vitamin D3 (125 125 mcg PO DAILY 08/07/23 01/20/24 Mcg = 5000 Iu)] Loratadine [Claritin] 10 mg PO DAILY 08/07/23 01/20/24 amLODIPine [Norvasc] 10 mg PO DAILY 08/07/23 01/20/24 Potassium Chloride ER [K-Dur 10] 10 meq PO DAILY 01/20/24 01/20/24 Previous Rx's Medication Instructions Recorded Aspirin 81 mg PO DAILY 30 Days tab 01/29/21 Pantoprazole Sodium [Protonix] 40 mg PO DAILY #15 tab 08/05/22 Propranolol [Inderal] 20 mg PO DAILY #30 tab 08/27/23 QUEtiapine [SEROquel] 50 mg PO HS #30 tab 08/27/23 Ondansetron Odt [Zofran Odt] 4 mg PO Q8HR PRN #10 tab 02/16/24 Allergies Allergy/AdvReac Type Severity Reaction Status Date / Time clozapine AdvReac Hypotension Verified 02/14/24 14:28 /Diarrhea divalproex sodium AdvReac Hyponatremi Verified 02/14/24 14:28 [From Depakote] a Review of Systems ROS Statement: Those systems with pertinent positive or pertinent negative responses have been documented in the HPI. ROS Other: All systems not noted in ROS Statement are negative. Past Medical History Past Medical History: GERD/Reflux, Hypertension, Vascular Disorder Additional Past Medical History / Comment(s): ETOH abuse, alcohol withdrawl with tremens, diverticular disease, benign colon polyp, varicose veins. History of Any Multi-Drug Resistant Organisms: None Reported Past Surgical History: No Surgical Hx Reported Additional Past Surgical History / Comment(s): Teeth extractions, colonoscopies. Past Anesthesia/Blood Transfusion Reactions: No Reported Reaction Additional Past Anesthesia/Blood Transfusion Reaction / Comment(s): Never had Past Psychological History: Anxiety, Depression, Schizophrenia Smoking Status: Never smoker Past Alcohol Use History: Heavy Past Drug Use History: None Reported - Past Family History Father Family Medical History: Myocardial Infarction ([place]) Additional Family Medical History / Comment(s): AT AGE 58 FROM [place] Mother Family Medical History: Deep Vein Thrombosis (DVT), Hypertension Additional Family Medical History / Comment(s): PRIMARY PULMONARY HYPERTENSION General Exam Limitations: no limitations General appearance: alert, in no apparent distress Head exam: Present: atraumatic, normocephalic, normal inspection Eye exam: Present: normal appearance, PERRL, EOMI. Absent: scleral icterus, conjunctival injection, periorbital swelling ENT exam: Present: normal exam, normal oropharynx, mucous membranes moist Neck exam: Present: normal inspection, full ROM. Absent: tenderness, meningismus, lymphadenopathy Respiratory exam: Present: normal lung sounds bilaterally. Absent: respiratory distress, wheezes, rales, rhonchi, stridor Cardiovascular Exam: Present: normal rhythm, tachycardia, normal heart sounds. Absent: systolic murmur, diastolic murmur, rubs, gallop, clicks GI/Abdominal exam: Present: soft, tenderness, normal bowel sounds. Absent: distended, guarding, rebound, rigid Back exam: Absent: CVA tenderness (R), CVA tenderness (L) Neurological exam: Present: alert Skin exam: Present: warm, dry, intact, normal color. Absent: rash Course Vital Signs 02/16/24 02/16/24 06:58 07:31 Temperature 98.0 F Pulse Rate 120 H 114 H Respiratory 16 18 Rate Blood Pressure 160/108 150/104 O2 Sat by Pulse 98 97 Oximetry Medical Decision Making - Medical Decision Making Was pt. sent in by a medical professional or institution (, PA, THERAPEUTIC SALES SPECIALIST, urgent care, hospital, or fdc...) When possible be specific @ -No Did you speak to anyone other than the patient for history (EMS, parent, family, police, friend...)? What history was obtained from this source @ -No Did you review nursing and triage notes (agree or disagree)? Why? @ -I reviewed and agree with nursing and triage notes Were old charts reviewed (outside hosp., previous admission, EMS record, old EKG, old radiological studies, urgent care reports/EKG's, fdc records)? Report findings @ -Reviewed prior CBC, CMP Differential Diagnosis (chest pain, altered mental status, abdominal pain women, abdominal pain men, vaginal bleeding, weakness, fever, dyspnea, syncope, headache, dizziness, GI bleed, back pain, seizure, CVA, palpatations, mental health, musculoskeletal)? @ -Differential Abdominal Pain Men: Appendicitis, cholecystitis, diverticulosis, ischemic bowel, pancreatitis, hepa titis, UTI, gastroenteritis, AAA, incarcerated hernia, bowel obstruction, constipation, inflammatory bowel, hepatitis, peptic ulcer disease, splenic infarction, perforated viscus, testicular torsion, this is not meant to be an all-inclusive list EKG interpreted by me (3pts min.). @ -None X-rays interpreted by me (1pt min.). @ -None done CT interpreted by me (1pt min.). @ -None done U/S interpreted by me (1pt. min.). @ -None done What testing was considered but not performed or refused? (CT, X-rays, U/S, labs)? Why? @ -None What meds were considered but not given or refused? Why? @ -None Did you discuss the management of the patient with other professionals (professionals i.e. , PA, THERAPEUTIC SALES SPECIALIST, lab, RT, psych nurse, director social, intelligence specialist, teacher, chief merchandising officer, onsite case manager)? Give summary @ -No Was smoking cessation discussed for >3mins.? @ -No Was critical care preformed (if so, how long)? @ -No Were there social determinants of health that impacted care today? How? (Homelessness, low income, unemployed, alcoholism, drug addiction, transportation, low edu. Level, literacy, decrease access to med. care, senior care, rehab)? @ -No Was there de-escalation of care discussed even if they declined (Discuss DNR or withdrawal of care, Hospice)? DNR status @ -No What co-morbidities impacted this encounter? (DM, HTN, Smoking, COPD, CAD, Cancer, CVA, ARF, Chemo, Hep., AIDS, mental health diagnosis, sleep apnea, morbid obesity)? @ -None Was patient admitted / discharged? Hospital course, mention meds given and route, prescriptions, significant lab abnormalities, going to OR and other pertinent info. @ -Discharge patient feels improved with IV fluids and antiemetics laboratory studies revealed no acute changes. Patient heart rate has improved after IV fluids will be discharged with antiemetics as he had no medications at home for this. Patient has a follow-up appoint next week Undiagnosed new problem with uncertain prognosis? @ -No Drug Therapy requiring intensive monitoring for toxicity (Heparin, Nitro, Insulin, Cardizem)? @ -No Were any procedures done? @ -No Diagnosis/symptom? @Nausea vomiting Acute, or Chronic, or Acute on Chronic? @ -Acute Uncomplicated (without systemic symptoms) or Complicated (systemic symptoms)? @ -Uncomplicated Side effects of treatment? @ -No Exacerbation, Progression, or Severe Exacerbation? @ -No Poses a threat to life or bodily function? How? (Chest pain, [place], [place], pneumonia, PE, COPD, DKA, ARF, appy, cholecystitis, CVA, Diverticulitis, Homicidal, Suicidal, threat to staff... and all critical care pts) @ -No - Lab Data Result diagrams: 02/16/24 07:17 02/16/24 07:17 Lab Results 02/16/24 02/16/24 Range/Units 07:17 07:17 WBC 7.1 (3.8-10.6) k/uL RBC 5.00 (4.30-5.90) m/uL Hgb 15.8 (13.0-17.5) gm/dL Hct 46.8 (39.0-53.0) % MCV 93.7 (80.0-100.0) fL MCH 31.7 (25.0-35.0) pg MCHC 33.8 (31.0-37.0) g/dL RDW 13.3 (11.5-15.5) % Plt Count 247 (150-450) k/uL MPV 7.7 Neutrophils % 66 % Lymphocytes % 18 % Monocytes % 10 % Eosinophils % 3 % Basophils % 0 % Neutrophils # 4.7 (1.3-7.7) k/uL Lymphocytes # 1.3 (1.0-4.8) k/uL Monocytes # 0.7 (0-1.0) k/uL Eosinophils # 0.2 (0-0.7) k/uL Basophils # 0.0 (0-0.2) k/uL Sodium 135 L (137-145) mmol/L Potassium 4.1 (3.5-5.1) mmol/L Chloride 101 (98-107) mmol/L Carbon Dioxide 20 L (22-30) mmol/L Anion Gap 14 mmol/L BUN 4 L (9-20) mg/dL Creatinine 0.59 L (0.66-1.25) mg/dL Est GFR (CKD-EPI)AfAm >90 (>60 ml/min/1.73 sqM) Est GFR (CKD-EPI)NonAf >90 (>60 ml/min/1.73 sqM) Glucose 85 (74-99) mg/dL Calcium 9.7 (8.4-10.2) mg/dL Magnesium 1.7 (1.6-2.3) mg/dL Total Bilirubin 2.8 H (0.2-1.3) mg/dL AST 40 (17-59) U/L ALT 35 (4-49) U/L Alkaline Phosphatase 63 (38-126) U/L Total Protein 8.0 (6.3-8.2) g/dL Albumin 4.9 (3.5-5.0) g/dL Lipase 94 (23-300) U/L Serum Alcohol <10 mg/dL Disposition Clinical Impression: Dehydration, Nausea & vomiting Disposition: HOME SELF-CARE Condition: Stable Instructions (If sedation given, give patient instructions): Acute Nausea and Vomiting (ED) Additional Instructions: Please return to the Emergency Department if symptoms worsen or any other concerns. Prescriptions: Ondansetron Odt [Zofran Odt] 4 mg PO Q8HR PRN #10 tab PRN Reason: Nausea Is patient prescribed a controlled substance at d/c from ED?: No Referrals: [facility] [Primary Care Provider] - 1-2 days Time of Disposition: 09:15
[2024-02-16 07:35] LABS: ALT 35 U/L (4-49); AST 40 U/L (17-59); African American GFR (CKD) >90 (>60 ml/min/1.73 sqM); Albumin 4.9 g/dL (3.5-5.0); Alcohol <10 mg/dL; Alkaline Phosphatase 63 U/L (38-126); Anion Gap 14 mmol/L; Blood Urea Nitrogen 4 mg/dL (9-20); Calcium 9.7 mg/dL (8.4-10.2); Carbon Dioxide 20 mmol/L (22-30); Chloride 101 mmol/L (98-107); Glucose 85 mg/dL (74-99); Lipase 94 U/L (23-300); Magnesium 1.7 mg/dL (1.6-2.3); Non-African American GFR(CKD) >90 (>60 ml/min/1.73 sqM); Potassium 4.1 mmol/L (3.5-5.1); Sodium 135 mmol/L (137-145); Total Bilirubin 2.8 mg/dL (0.2-1.3)
[2024-02-16] MEDS: ONDANSETRON 4 MG/2 ML VIAL IVP STA (09:33)
[2024-02-16 09:47] VITALS: BP 136/89; PULSE 71; RESP 16
== END 2024-02-16 09:47 | disposition home or self-care (01) ==
LOC: EC 06:56
CPT/HCPCS: 36415; 80053; 80320; 83690; 83735; 85025; 96361; 96374; 96375; 99284

== ENCOUNTER 2024-02-16 22:23 | Emergency (ER) | payer MEDICARE, OTHER ==
[2024-02-16 22:30] VITALS: TEMP 98.1
--- NOTE | 2024-02-16 23:29 | ED ---
Nausea/Vomiting/Diarrhea HPI - General Chief complaint: Nausea/Vomiting/Diarrhea Stated complaint: N/V Time Seen by Provider: 02/16/24 22:39 Source: patient, EMS, RN notes reviewed Mode of arrival: EMS Limitations: no limitations - History of Present Illness Initial comments: This is a 58-year-old male presents emergency department via EMS for chief comp laint of nausea and vomiting. Patient has been evaluated emergency department multiple times over the past few days for similar complaints. Patient is concerned that he thinks he is being poisoned from the food he is eating at [employer]. Patient denies suicidal homicidal ideation. Denies abdominal pain. Denies hematemesis or coffee-ground emesis. Denies fevers or chills. Denies urinary complaints. Denies bowel complaints. Was prescribed Zofran at his earlier visit emergency department however was not able to picker this medication until tomorrow prompting him to call EMS. After medication ministration states that he is feeling better. - Related Data Home Medications Medication Instructions Recorded Confirmed fluPHENAZine decanoate [Prolixin 50 mg IM Q14D 08/03/22 01/20/24 Decanoate] Acetaminophen Tab [Tylenol] 650 mg PO TID PRN 08/07/23 01/20/24 Cholecalciferol [Vitamin D3 (125 125 mcg PO DAILY 08/07/23 01/20/24 Mcg = 5000 Iu)] Loratadine [Claritin] 10 mg PO DAILY 08/07/23 01/20/24 amLODIPine [Norvasc] 10 mg PO DAILY 08/07/23 01/20/24 Potassium Chloride ER [K-Dur 10] 10 meq PO DAILY 01/20/24 01/20/24 Previous Rx's Medication Instructions Recorded Aspirin 81 mg PO DAILY 30 Days tab 01/29/21 Pantoprazole Sodium [Protonix] 40 mg PO DAILY #15 tab 08/05/22 Propranolol [Inderal] 20 mg PO DAILY #30 tab 08/27/23 QUEtiapine [SEROquel] 50 mg PO HS #30 tab 08/27/23 Ondansetron Odt [Zofran Odt] 4 mg PO Q8HR PRN #10 tab 02/16/24 Allergies Allergy/AdvReac Type Severity Reaction Status Date / Time clozapine AdvReac Hypotension Verified 02/16/24 22:27 /Diarrhea divalproex sodium AdvReac Hyponatremi Verified 02/16/24 22:27 [From Depakote] a Review of Systems ROS Statement: Those systems with pertinent positive or pertinent negative responses have been documented in the HPI. ROS Other: All systems not noted in ROS Statement are negative. Past Medical History Past Medical History: GERD/Reflux, Hypertension, Vascular Disorder Additional Past Medical History / Comment(s): ETOH abuse, alcohol withdrawl with tremens, diverticular disease, benign colon polyp, varicose veins. History of Any Multi-Drug Resistant Organisms: None Reported Past Surgical History: No Surgical Hx Reported Additional Past Surgical History / Comment(s): Teeth extractions, colonoscopies. Past Anesthesia/Blood Transfusion Reactions: No Reported Reaction Additional Past Anesthesia/Blood Transfusion Reaction / Comment(s): Never had Past Psychological History: Anxiety, Depression, Schizophrenia Smoking Status: Never smoker Past Alcohol Use History: Heavy Past Drug Use History: None Reported - Past Family History Father Family Medical History: Myocardial Infarction ([place]) Additional Family Medical History / Comment(s): AT AGE 58 FROM [place] Mother Family Medical History: Deep Vein Thrombosis (DVT), Hypertension Additional Family Medical History / Comment(s): PRIMARY PULMONARY HYPERTENSION General Exam Limitations: no limitations General appearance: alert, in no apparent distress ENT exam: Present: normal exam, mucous membranes moist Neck exam: Present: normal inspection. Absent: tenderness, meningismus, lymphadenopathy Respiratory exam: Present: normal lung sounds bilaterally. Absent: respiratory distress, wheezes, rales, rhonchi, stridor Cardiovascular Exam: Present: regular rate, normal rhythm, normal heart sounds. Absent: systolic murmur, diastolic murmur, rubs, gallop, clicks GI/Abdominal exam: Present: soft, normal bowel sounds. Absent: distended, tenderness, guarding, rebound, rigid Extremities exam: Present: normal inspection, full ROM, normal capillary refill. Absent: tenderness, pedal edema, joint swelling, calf tenderness Back exam: Present: normal inspection Psychiatric exam: Present: anxious, flat affect Expanded Focused psych exam: Present: delusional Course Vital Signs 02/16/24 22:25 Temperature 98.1 F Pulse Rate 93 Respiratory 18 Rate Blood Pressure 132/98 O2 Sat by Pulse 97 Oximetry Medical Decision Making - Medical Decision Making Was pt. sent in by a medical professional or institution (Dr., PA, FOREST PATHOLOGIST, urgent care, hospital, or senior care...) When possible be specific @ -No Did you speak to anyone other than the patient for history (EMS, parent, family, police, friend...)? What history was obtained from this source @ -No Did you review nursing and triage notes (agree or disagree)? Why? @ -I reviewed and agree with nursing and triage notes Were old charts reviewed (outside hosp., previous admission, EMS record, old EKG, old radiological studies, urgent care reports/EKG's, senior care records)? Report findings @ -Reviewed the patient's previous CBC and CMP Differential Diagnosis (chest pain, altered mental status, abdominal pain women, abdominal pain men, vaginal bleeding, weakness, fever, dyspnea, syncope, headache, dizziness, GI bleed, back pain, seizure, CVA, palpatations, mental health, musculoskeletal)? @ -Differential Abdominal Pain Men: Appendicitis, cholecystitis, diverticulosis, ischemic bowel, pancreatitis, hepatitis, UTI, gastroenteritis, AAA, incarcerated hernia, bowel obstruction, constipation, inflammatory bowel, hepatitis, peptic ulcer disease, splenic in farction, perforated viscus, testicular torsion, this is not meant to be an all- inclusive list EKG interpreted by me (3pts min.). @ -None X-rays interpreted by me (1pt min.). @ -None done CT interpreted by me (1pt min.). @ -None done U/S interpreted by me (1pt. min.). @ -None done What testing was considered but not performed or refused? (CT, X-rays, U/S, labs)? Why? @ -None What meds were considered but not given or refused? Why? @ -None Did you discuss the management of the patient with other professionals (professionals i.e. , PA, FOREST PATHOLOGIST, lab, RT, psych nurse, social science professor, disabilities services officer, teacher, life science technical officer, caser in)? Give summary @ -No Was smoking cessation discussed for >3mins.? @ -No Was critical care preformed (if so, how long)? @ -No Were there social determinants of health that impacted care today? How? (Homelessness, low income, unemployed, alcoholism, drug addiction, trans portation, low edu. Level, literacy, decrease access to med. care, nursing home, rehab)? @ -No Was there de-escalation of care discussed even if they declined (Discuss DNR or withdrawal of care, Hospice)? DNR status @ -No What co-morbidities impacted this encounter? (DM, HTN, Smoking, COPD, CAD, Cancer, CVA, ARF, Chemo, Hep., AIDS, mental health diagnosis, sleep apnea, morbid obesity)? @ -None Was patient admitted / discharged? Hospital course, mention meds given and route, prescriptions, significant lab abnormalities, going to OR and other pertinent info. @ -Discharge. 58-year-old male with nausea vomiting. Patient arrives via EMS with IV in place and is resting comfortably no signs acute distress. Patient states that he is currently not feeling nauseated as he was given Zofran and route. No abdominal pain on examination. Patient is provided with a liter fluid bolus pending laboratory results. On reevaluation patient is resting soundly asleep seen that he feels better however had an additional episode emesis on the emergency department. Patient is provided with starter pack of Zofran that he is able to take home with him and instructed to take this only as needed for intermittent nausea. Recommend that patient increase hydration as well at home and follow liquid diet over the next 24 hours and slowly reintroducing foods such as bananas, rice, applesauce, and toast. Additionally, recommend that he follow-up with patient's primary care provider this week for further evaluation. Patient is experiencing paranoid delusions however he denies homicidal or suicidal ideations and therefore he is stable for discharge. Discussed with Dr. Muir Undiagnosed new problem with uncertain prognosis? @ -No Drug Therapy requiring intensive monitoring for toxicity (Heparin, Nitro, Ins ulin, Cardizem)? @ -No Were any procedures done? @ -No Diagnosis/symptom? @ -nausea and vomiting, paranoid delusions Acute, or Chronic, or Acute on Chronic? @ -Acute Uncomplicated (without systemic symptoms) or Complicated (systemic symptoms)? @ -Uncomplicated Side effects of treatment? @ -No Exacerbation, Progression, or Severe Exacerbation? @ -No Poses a threat to life or bodily function? How? (Chest pain, [place], [place], pneumonia, PE, COPD, DKA, ARF, appy, cholecystitis, CVA, Diverticulitis, Homicidal, Suicidal, threat to staff... and all critical care pts) @ -No - Lab Data Result diagrams: 02/16/24 23:55 02/17/24 01:36 Lab Results 02/16/24 02/16/24 02/17/24 Range/Units 23:55 23:55 01:36 WBC 6.7 (3.8-10.6) k/uL RBC 4.43 (4.30-5.90) m/uL Hgb 14.3 (13.0-17.5) gm/dL Hct 40.3 (39.0-53.0) % MCV 91.1 (80.0-100.0) fL MCH 32.2 (25.0-35.0) pg MCHC 35.4 (31.0-37.0) g/dL RDW 13.8 (11.5-15.5) % Plt Count 208 (150-450) k/uL MPV 8.9 Neutrophils % 62 % Lymphocytes % 23 % Monocytes % 9 % Eosinophils % 3 % Basophils % 0 % Neutrophils # 4.1 (1.3-7.7) k/uL Lymphocytes # 1.5 (1.0-4.8) k/uL Monocytes # 0.6 (0-1.0) k/uL Eosinophils # 0.2 (0-0.7) k/uL Basophils # 0.0 (0-0.2) k/uL Hyperchromasia Slight Sodium 137 (137-145) mmol/L Potassium 3.6 (3.5-5.1) mmol/L Chloride 106 (98-107) mmol/L Carbon Dioxide 23 (22-30) mmol/L Anion Gap 8 mmol/L BUN 2 L (9-20) mg/dL Creatinine 0.59 L (0.66-1.25) mg/dL Est GFR (CKD-EPI)AfAm >90 (>60 ml/min/1.73 sqM) Est GFR (CKD-EPI)NonAf >90 (>60 ml/min/1.73 sqM) Glucose 84 (74-99) mg/dL Plasma Lactic Acid Edwin 1.9 (0.7-2.0) mmol/L Calcium 9.1 (8.4-10.2) mg/dL Phosphorus 3.4 (2.5-4.5) mg/dL Magnesium 1.6 (1.6-2.3) mg/dL Total Bilirubin 1.6 H (0.2-1.3) mg/dL AST 32 (17-59) U/L ALT 26 (4-49) U/L Alkaline Phosphatase 66 (38-126) U/L Total Protein 6.7 (6.3-8.2) g/dL Albumin 4.2 (3.5-5.0) g/dL Amylase 39 (30-110) U/L Lipase 87 (23-300) U/L Disposition Clinical Impression: Nausea and vomiting, Paranoid delusion Disposition: HOME SELF-CARE Condition: Good Instructions (If sedation given, give patient instructions): Acute Nausea and Vomiting (ED) Additional Instructions: Return to the emergency department for any new or worsening symptoms. Take Zofran as directed and increase oral hydration. Recommend follow-up as scheduled with your primary care provider for further evaluation. Is patient prescribed a controlled substance at d/c from ED?: No Referrals: [facility] [Primary Care Provider] - 1-2 days Time of Disposition: 02:24
[2024-02-16] MEDS: SODIUM CHLORIDE 0.9% 1,000 ML IV STA (23:51)
[2024-02-17 00:23] LABS: Basophils % (A) 0 %; Eosinophils # (A) 0.2 k/uL (0-0.7); Eosinophils % (A) 3 %; HCT 40.3 % (39.0-53.0); HGB 14.3 gm/dL (13.0-17.5); Hyperchromasia Slight; Lymphocytes # (A) 1.5 k/uL (1.0-4.8); Lymphocytes % (A) 23 %; MCH 32.2 pg (25.0-35.0); MCHC 35.4 g/dL (31.0-37.0); MCV 91.1 fL (80.0-100.0); Mean Platelet Volume 8.9; Monocytes # (A) 0.6 k/uL (0-1.0); Monocytes % (A) 9 %; Neutrophils # (A) 4.1 k/uL (1.3-7.7); Neutrophils % (A) 62 %; Platelet Count 208 k/uL (150-450); RBC 4.43 m/uL (4.30-5.90); RDW 13.8 % (11.5-15.5); WBC 6.7 k/uL (3.8-10.6)
[2024-02-17 02:14] LABS: ALT 26 U/L (4-49); AST 32 U/L (17-59); African American GFR (CKD) >90 (>60 ml/min/1.73 sqM); Albumin 4.2 g/dL (3.5-5.0); Alkaline Phosphatase 66 U/L (38-126); Amylase 39 U/L (30-110); Anion Gap 8 mmol/L; Blood Urea Nitrogen 2 mg/dL (9-20); Calcium 9.1 mg/dL (8.4-10.2); Carbon Dioxide 23 mmol/L (22-30); Chloride 106 mmol/L (98-107); Glucose 84 mg/dL (74-99); Lipase 87 U/L (23-300); Magnesium 1.6 mg/dL (1.6-2.3); Non-African American GFR(CKD) >90 (>60 ml/min/1.73 sqM); Phosphorus 3.4 mg/dL (2.5-4.5); Potassium 3.6 mmol/L (3.5-5.1); Sodium 137 mmol/L (137-145); Total Bilirubin 1.6 mg/dL (0.2-1.3); Total Protein 6.7 g/dL (6.3-8.2)
[2024-02-17] MEDS: ONDANSETRON 4 MG ODT STARTER PACK 2 TAB BTL PO STA (02:44)
[2024-02-17 02:45] VITALS: BP 124/78; PULSE 88; RESP 16
== END 2024-02-17 02:45 | disposition home or self-care (01) ==
LOC: EC 22:23
CPT/HCPCS: 36415; 80053; 82150; 83605; 83690; 83735; 84100; 85025; 96360; 99284

== ENCOUNTER 2024-02-19 11:40 | Inpatient (IN) | payer MEDICARE, OTHER ==
--- NOTE | 2024-02-19 13:11 | ED ---
Psych HPI - General Chief Complaint: Psychiatric Symptoms Stated Complaint: Vomiting Time Seen by Provider: 02/19/24 12:56 Source: patient, RN notes reviewed, old records reviewed Mode of arrival: ambulatory Limitations: no limitations - History of Present Illness Initial Comments: This is a 58-year-old male to the ER for evaluation today. Patient coming in for nausea vomiting and abdominal pain history of alcoholism. No travel history no sick contacts no recent surgery or other complaints MD Complaint: suicidal ideation, feels depressed -: days(s) Associated Psychiatric Symptoms: depression History of same: Yes Quality: constant Improves With: none Associated Symptoms: denies other symptoms Treatments Prior to Arrival: none - Related Data Home Medications Medication Instructions Recorded Confirmed Cholecalciferol [Vitamin D3 (125 125 mcg PO DAILY 08/07/23 02/22/24 Mcg = 5000 Iu)] Loratadine [Claritin] 10 mg PO DAILY 08/07/23 02/22/24 amLODIPine [Norvasc] 10 mg PO DAILY 08/07/23 02/22/24 Previous Rx's Medication Instructions Recorded Aspirin 81 mg PO DAILY 30 Days tab 01/29/21 Pantoprazole Sodium [Protonix] 40 mg PO DAILY #15 tab 08/05/22 Propranolol [Inderal] 20 mg PO DAILY #30 tab 08/27/23 Ondansetron Odt [Zofran ODT] 4 mg PO Q8HR PRN #10 tab 02/16/24 Tamsulosin [Flomax] 0.4 mg PO PC-SUPPER #0 cap 02/22/24 Thiamine [Vitamin B-1] 100 mg PO DAILY tab 02/22/24 QUEtiapine [SEROquel] 25 mg PO HS 30 Days #30 tab 03/02/24 fluPHENAZine decanoate [Prolixin 50 mg IM [id number] 14 Days #1 ml 03/02/24 Decanoate] Allergies Allergy/AdvReac Type Severity Reaction Status Date / Time clozapine AdvReac Hypotension Verified 02/19/24 17:16 /Diarrhea divalproex sodium AdvReac Hyponatremi Verified 02/19/24 17:16 [From Depakote] a Review of Systems ROS Statement: Those systems with pertinent positive or pertinent negative responses have been documented in the HPI. ROS Other: All systems not noted in ROS Statement are negative. Past Medical History Past Medical History: GERD/Reflux, Hypertension, Vascular Disorder Additional Past Medical History / Comment(s): ETOH abuse, alcohol withdrawl with tremens, diverticular disease, benign colon polyp, varicose veins. History of Any Multi-Drug Resistant Organisms: None Reported Past Surgical History: No Surgical Hx Reported Additional Past Surgical History / Comment(s): Teeth extractions, colonoscopies. Past Anesthesia/Blood Transfusion Reactions: No Reported Reaction Additional Past Anesthesia/Blood Transfusion Reaction / Comment(s): Never had Past Psychological History: Anxiety, Depression, Schizophrenia Smoking Status: Never smoker Past Alcohol Use History: Heavy Past Drug Use History: None Reported - Past Family History Father Family Medical History: Myocardial Infarction ([place]) Additional Family Medical History / Comment(s): AT AGE 58 FROM [place] Mother Family Medical History: Deep Vein Thrombosis (DVT), Hypertension Additional Family Medical History / Comment(s): PRIMARY PULMONARY HYPERTENSION General Exam Limitations: no limitations General appearance: alert, in no apparent distress Head exam: Present: atraumatic, normocephalic, normal inspection Eye exam: Present: normal appearance, PERRL, EOMI. Absent: scleral icterus, conjunctival injection, periorbital swelling ENT exam: Present: normal exam, mucous membranes moist Neck exam: Present: normal inspection. Absent: tenderness, meningismus, lymphadenopathy Respiratory exam: Present: normal lung sounds bilaterally. Absent: respiratory distress, wheezes, rales, rhonchi, stridor Cardiovascular Exam: Present: regular rate, normal rhythm, normal heart sounds. Absent: systolic murmur, diastolic murmur, rubs, gallop, clicks GI/Abdominal exam: Present: soft, normal bowel sounds. Absent: distended, tenderness, guarding, rebound, rigid Extremities exam: Present: normal inspection, full ROM, normal capillary refill. Absent: tenderness, pedal edema, joint swelling, calf tenderness Back exam: Present: normal inspection Neurological exam: Present: alert, oriented X3, CN II-XII intact Psychiatric exam: Present: normal affect, normal mood Skin exam: Present: warm, dry, intact, normal color. Absent: rash Course Vital Signs 02/19/24 02/19/24 02/19/24 11:53 17:48 20:10 Temperature 97.6 F 98.7 F 98.4 F Pulse Rate 92 79 100 Respiratory 18 18 18 Rate Blood Pressure 129/95 148/98 132/85 O2 Sat by Pulse 97 94 L 98 Oximetry 02/20/24 02/20/24 02/20/24 01:35 03:30 06:07 Temperature 98.6 F 98.3 F 98.2 F Pulse Rate 94 79 79 Respiratory 18 16 17 Rate Blood Pressure 114/77 126/76 116/78 O2 Sat by Pulse 98 98 95 Oximetry 02/20/24 07:03 Temperature 98.6 F Pulse Rate 70 Respiratory 17 Rate Blood Pressure 115/76 O2 Sat by Pulse 94 L Oximetry - Reevaluation(s) Reevaluation #1: 02/19/24 14:14 Medical records reviewed Reevaluation #2: 02/19/24 14:15 Symptoms improved Reevaluation #3: 02/19/24 17:40 Patient informed of results and questions answered Reevaluation #4: Was pt. sent in by a medical professional or institution ([facility] Damico, ROAD COMMISSIONER, urgent care, hospital, or fdc...) When possible be specific @ -no Did you speak to anyone other than the patient for history (EMS, parent, family, police, friend...)? What history was obtained from this source @ -no Did you review nursing and triage notes (agree or disagree)? Why? @ -agree Are old charts reviewed (outside hosp., previous admission, EMS record, old EKG, old radiological studies, urgent care reports/EKG's, fdc records)? Report findings @ -yes Differential Diagnosis (chest pain, altered mental status, abdominal pain women, abdominal pain men, vaginal bleeding, weakness, fever, dyspnea, syncope, headache, dizziness, GI bleed, back pain, seizure, CVA, palpatations, mental health, musculoskeletal)? @ -prior EKG interpreted by me (3pts min.). @ -yes X-rays interpreted by me (1pt min.). @ -no CT interpreted by me (1pt min.). @ -no U/S interpreted by me (1pt. min.). @ -no What testing was considered but not performed or refused? (CT, X-rays, U/S, labs)? Why? @ -none What meds were considered but not given or refused? Why? @ -none Did you discuss the management of the patient with other professionals (professionals i.e. , [facility], ROAD COMMISSIONER, lab, RT, psych nurse, case management social worker, yeast supervisor, teacher, plain clothes police officer, case management social worker)? Give summary @ -no Was smoking cessation discussed for >3mins.? @ -no Was critical care preformed (if so, how long)? @ -no Were there social determinants of health that impacted care today? How? (Homelessness, low income, unemployed, alcoholism, drug addiction, transportation, low edu. Level, literacy, decrease access to med. care, retirement, rehab)? @ -none Was there de-escalation of care discussed even if they declined (Discuss DNR or withdrawal of care, Hospice)? DNR status @ -no What co-morbidities impacted this encounter? (DM, HTN, Smoking, COPD, CAD, Cancer, CVA, ARF, Chemo, Hep., AIDS, mental health diagnosis, sleep apnea, morbid obesity)? @ -none Was patient admitted / discharged? Hospital course, mention meds given and route, prescriptions, significant lab abnormalities, going to OR and other pertinent info. 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 Patient will admit for further evaluation and monitoring Admitted Undiagnosed new problem with uncertain prognosis? @ -no Drug Therapy requiring intensive monitoring for toxicity (Heparin, Nitro, Insuli n, Cardizem)? @ -no Were any procedures done? @ -no Diagnosis/symptom? @ -Abdominal pain urinary retention polyuria Acute, or Chronic, or Acute on Chronic? @ -Acute Uncomplicated (without systemic symptoms) or Complicated (systemic symptoms)? @ -Complicated Side effects of treatment? @ -no Exacerbation, Progression, or Severe Exacerbation? @ -exacerbation Poses a threat to life or bodily function? How? (Chest pain, [place], [place], pneumonia, PE, COPD, DKA, ARF, appy, cholecystitis, CVA, Diverticulitis, Homicidal, Suicidal, threat to staff... and all critical care pts) @ -yes significant intoxication Reevaluation #5: Differential Weakness: Hypoglycemia, shock, sepsis, hyponatremia, anemia, infection, [place], ETOH, adverse medicine reaction, overdose, stroke, this is not meant to be an all-inclusive list. 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 Patient will admit for further evaluation and monitoring - Lab Data Result diagrams: 02/20/24 05:55 02/22/24 04:32 Lab Results 02/19/24 02/19/24 02/19/24 Range/Units 13:38 13:38 13:38 WBC 7.0 (3.8-10.6) k/uL RBC 4.31 (4.30-5.90) m/uL Hgb 13.9 (13.0-17.5) gm/dL Hct 40.4 (39.0-53.0) % MCV 93.9 (80.0-100.0) fL MCH 32.2 (25.0-35.0) pg MCHC 34.3 (31.0-37.0) g/dL RDW 13.2 (11.5-15.5) % Plt Count 186 (150-450) k/uL MPV 7.6 Neutrophils % 65 % Lymphocytes % 19 % Monocytes % 7 % Eosinophils % 4 % Basophils % 1 % Neutrophils # 4.6 (1.3-7.7) k/uL Lymphocytes # 1.3 (1.0-4.8) k/uL Monocytes # 0.5 (0-1.0) k/uL Eosinophils # 0.3 (0-0.7) k/uL Basophils # 0.0 (0-0.2) k/uL Sodium 131 L (137-145) mmol/L Potassium 3.4 L (3.5-5.1) mmol/L Chloride 101 (98-107) mmol/L Carbon Dioxide 20 L (22-30) mmol/L Anion Gap 10 mmol/L BUN 4 L (9-20) mg/dL Creatinine 0.63 L (0.66-1.25) mg/dL Est GFR (CKD-EPI)AfAm >90 (>60 ml/min/1.73 sqM) Est GFR (CKD-EPI)NonAf >90 (>60 ml/min/1.73 sqM) Glucose 103 H (74-99) mg/dL Calcium 8.9 (8.4-10.2) mg/dL Phosphorus 3.9 (2.5-4.5) mg/dL Magnesium 1.4 L (1.6-2.3) mg/dL Total Bilirubin 1.3 (0.2-1.3) mg/dL AST 36 (17-59) U/L ALT 28 (4-49) U/L Alkaline Phosphatase 57 (38-126) U/L Total Protein 6.5 (6.3-8.2) g/dL Albumin 4.1 (3.5-5.0) g/dL Lipase 81 (23-300) U/L Urine Color Colorless Urine Appearance Clear (Clear) Urine pH 6.0 (5.0-8.0) Ur Specific [place] 1.001 (1.001-1.035) Urine Protein Negative (Negative) Urine Glucose (UA) Negative (Negative) Urine Ketones Negative (Negative) Urine Blood Negative (Negative) Urine Nitrite Negative (Negative) Urine Bilirubin Negative (Negative) Urine Urobilinogen <2.0 (<2.0) mg/dL Ur Leukocyte Esterase Negative (Negative) Serum Alcohol 60 mg/dL SARS-CoV-2 (PCR) (Not Detectd) 02/19/24 Range/Units 14:11 WBC (3.8-10.6) k/uL RBC (4.30-5.90) m/uL Hgb (13.0-17.5) gm/dL Hct (39.0-53.0) % MCV (80.0-100.0) fL MCH (25.0-35.0) pg MCHC (31.0-37.0) g/dL RDW (11.5-15.5) % Plt Count (150-450) k/uL MPV Neutrophils % % Lymphocytes % % Monocytes % % Eosinophils % % Basophils % % Neutrophils # (1.3-7.7) k/uL Lymphocytes # (1.0-4.8) k/uL Monocytes # (0-1.0) k/uL Eosinophils # (0-0.7) k/uL Basophils # (0-0.2) k/uL Sodium (137-145) mmol/L Potassium (3.5-5.1) mmol/L Chloride (98-107) mmol/L Carbon Dioxide (22-30) mmol/L Anion Gap mmol/L BUN (9-20) mg/dL Creatinine (0.66-1.25) mg/dL Est GFR (CKD-EPI)AfAm (>60 ml/min/1.73 sqM) Est GFR (CKD-EPI)NonAf (>60 ml/min/1.73 sqM) Glucose (74-99) mg/dL Calcium (8.4-10.2) mg/dL Phosphorus (2.5-4.5) mg/dL Magnesium (1.6-2.3) mg/dL Total Bilirubin (0.2-1.3) mg/dL AST (17-59) U/L ALT (4-49) U/L Alkaline Phosphatase (38-126) U/L Total Protein (6.3-8.2) g/dL Albumin (3.5-5.0) g/dL Lipase (23-300) U/L Urine Color Urine Appearance (Clear) Urine pH (5.0-8.0) Ur Specific [place] (1.001-1.035) Urine Protein (Negative) Urine Glucose (UA) (Negative) Urine Ketones (Negative) Urine Blood (Negative) Urine Nitrite (Negative) Urine Bilirubin (Negative) Urine Urobilinogen (<2.0) mg/dL Ur Leukocyte Esterase (Negative) Serum Alcohol mg/dL SARS-CoV-2 (PCR) Not Detected (Not Detectd) Disposition Clinical Impression: Gastroenteritis, Alcohol abuse, Nausea & vomiting, Polyuria Disposition: ADMITTED IP TO THIS HOSP Condition: Good Is patient prescribed a controlled substance at d/c from ED?: No Time of Disposition: 15:20
[2024-02-19 13:46] LABS: Basophils % (A) 1 %; Eosinophils # (A) 0.3 k/uL (0-0.7); Eosinophils % (A) 4 %; HCT 40.4 % (39.0-53.0); HGB 13.9 gm/dL (13.0-17.5); Lymphocytes # (A) 1.3 k/uL (1.0-4.8); Lymphocytes % (A) 19 %; MCH 32.2 pg (25.0-35.0); MCHC 34.3 g/dL (31.0-37.0); MCV 93.9 fL (80.0-100.0); Mean Platelet Volume 7.6; Monocytes # (A) 0.5 k/uL (0-1.0); Monocytes % (A) 7 %; Neutrophils # (A) 4.6 k/uL (1.3-7.7); Neutrophils % (A) 65 %; Platelet Count 186 k/uL (150-450); RBC 4.31 m/uL (4.30-5.90); RDW 13.2 % (11.5-15.5)
[2024-02-19] MEDS: ONDANSETRON 4 MG/2 ML VIAL IVP STA (13:52)
[2024-02-19] MEDS: SODIUM CHLORIDE 0.9% 1,000 ML IV STA (13:52)
[2024-02-19 14:12] LABS: ALT 28 U/L (4-49); AST 36 U/L (17-59); African American GFR (CKD) >90 (>60 ml/min/1.73 sqM); Albumin 4.1 g/dL (3.5-5.0); Alcohol 60 mg/dL; Alkaline Phosphatase 57 U/L (38-126); Anion Gap 10 mmol/L; Blood Urea Nitrogen 4 mg/dL (9-20); Calcium 8.9 mg/dL (8.4-10.2); Carbon Dioxide 20 mmol/L (22-30); Chloride 101 mmol/L (98-107); Glucose 103 mg/dL (74-99); Lipase 81 U/L (23-300); Magnesium 1.4 mg/dL (1.6-2.3); Non-African American GFR(CKD) >90 (>60 ml/min/1.73 sqM); Phosphorus 3.9 mg/dL (2.5-4.5); Potassium 3.4 mmol/L (3.5-5.1); Sodium 131 mmol/L (137-145); Total Bilirubin 1.3 mg/dL (0.2-1.3); Total Protein 6.5 g/dL (6.3-8.2)
[2024-02-19 14:18] LABS: Appearance,Urine Clear (Clear); Bilirubin,Urine Negative (Negative); Blood,Urine Negative (Negative); Color,Urine Colorless; Glucose,Urine (UA) Negative (Negative); Ketones,Urine Negative (Negative); Leukocyte Esterase,Urine Negative (Negative); Nitrite,Urine Negative (Negative); Protein,Urine Negative (Negative); Specific Gravity,Urine 1.001 (1.001-1.035); Urobilinogen,Urine <2.0 mg/dL (<2.0)
[2024-02-19] MEDS: MAGNESIUM OXIDE 400 MG TAB PO STA ×2 (16:38)
[2024-02-19] MEDS: POTASSIUM BICARBONATE/CIT AC 20 MEQ TABLET.EFF PO ONE ×2 (16:38)
[2024-02-19] MEDS ORDERED: NALOXONE 0.4 MG/ML 1 ML VIAL IV PRN (17:37)
[2024-02-19] MEDS ORDERED: LORazepam 1 MG TAB PO PRN ×2 (17:39)
[2024-02-19] MEDS ORDERED: LORazepam 2 MG/ML INJ IV PRN ×2 (17:39)
[2024-02-19] MEDS: SODIUM CHLORIDE 0.9% 1,000 ML IV SCH (20:00)
[2024-02-19] MEDS: LORazepam 2 MG/ML INJ IV PRN (20:12)
--- NOTE | 2024-02-19 22:46 | P.HPIM ---
History of Present Illness H&P Date: 02/19/24 Chief Complaint: urinary retention Patient is a 58-year-old male with hypertension, anxiety, schizophrenia, depression, GERD, hyponatremia (seen by agricultural economics professor Dr. Silver), hypokalemia, EtOH abuse (last drink today, had history of admission for DTs) who came in for abdominal pain. Patient reported last Saturday 02/10, he started to experience abdominal pain and a feeling of fullness at the suprapubic area and having progressive difficulty to urinate. He reported he can only urinate if he strains and will see some dribbling, and weak stream with associated nausea and scant vomiting that is clear with some undigested food. He denies hematuria, dysuria, flank pain, fevers, chills, or diarrhea. At admission, patient noted to have flight of ideas and suicidal and homicidal ideation. Symptoms improved with Cotton catheter insertion. patient sounds paranoid and delusional , giving conflicting stories to different parties regarding being poisoned by supreme court , and that he is a royalty and being taken advantage of. Review of systems: Pertinent positives and negatives as discussed in HPI, a complete review of systems was performed and all other systems are negative. Social history: Tobacco: Denies tobacco use Alcohol: Current EtOH use. Drinks 1 Bacardi tonic daily Recreational drugs: Denies illicit drug use Travel: No recent travel Physical examination: Vital signs reviewed General: non toxic, no distress, appears at stated age Derm: no unusual rashes/lesions, warm Head: atraumatic, normocephalic, symmetric Eyes: EOMI, anicteric sclera, pupils equal round reactive to light ENT: Nose and ears atraumatic Neck: No masses or lesions grossly, trachea midline, supple Mouth: no lip lesion, mucus membranes moist Cardiovascular: S1S2 reg, no murmur Lungs: CTA bilateral, no rhonchi, no rales, no accessory muscle use Abdominal: soft, nondistended, epigastric tenderness on deep palpation, suprapubic fullness, no guarding, negative CVA tenderness Ext: muscle strength 5 out of 5 in all 4 extremities grossly, no gross muscle atrophy, no contractures, positive dorsalis pedis pulse bilateral, no edema Neuro: CN II-XI grossly intact, no gross focal neuro deficits Psych: Alert and oriented x 3, appropriate affect and mood Assessment/Plan: 78-year-old male who came in for abdominal pain and urinary retention. On admission he began to have flight of ideas and suicidal and homicidal ideation (patient did not identify a target). ED documentation reviewed and agree to admit this patient for abdominal pain and urinary retention. Anticipated length of stay greater than 2 midnight for evaluation. #. Urinary retention Patient reports inability to urinate. BUN normal at 4 and creatinine normal at 0.63 -Monitor urine output -Cotton catheter for now -BMP at a.m. -Consult urology #. Euvolemic hyponatremia due to alcohol intake and poor diet #. Hypomagnesemia due to alcohol intake Patient has a history of hyponatremia and has been evaluated by agricultural economics professor. Sodium 131. Patient stable at this time. -IV fluids normal saline 0.9% 75 cc/h -Magnesium replacement per protocol -BMP at a.m. #. Hypokalemia Patient has history of hypokalemia. Potassium 3.4 -s/p Potassium 60 mEq p.o. given in the ED -Check potassium after 4 hours #. Schizophrenia Patient experiencing flight of ideas and homicidal and suicidal ideation. -Consult psychiatry suicide precautions Chronic conditions: #. GERD #. Anxiety #. Depression -Resume home medications once reconciled DVT prophylaxis: Lovenox 40 SQ daily rest of blood work unremarkable , WBC 7 , Hgb 13.9 BUN 4 cr 0.6 CODE STATUS: Full Discussed with: Patient Anticipated discharge place: pending psych eval Past Medical History Past Medical History: GERD/Reflux, Hypertension, Vascular Disorder Additional Past Medical History / Comment(s): ETOH abuse, alcohol withdrawl with tremens, diverticular disease, benign colon polyp, varicose veins. History of Any Multi-Drug Resistant Organisms: None Reported Past Surgical History: No Surgical Hx Reported Additional Past Surgical History / Comment(s): Teeth extractions, colonoscopies. Past Anesthesia/Blood Transfusion Reactions: No Reported Reaction Additional Past Anesthesia/Blood Transfusion Reaction / Comment(s): Never had Past Psychological History: Anxiety, Depression, Schizophrenia Smoking Status: Never smoker Past Alcohol Use History: Heavy Past Drug Use History: None Reported - Past Family History Father Family Medical History: Myocardial Infarction ([place]) Additional Family Medical History / Comment(s): AT AGE 58 FROM [place] Mother Family Medical History: Deep Vein Thrombosis (DVT), Hypertension Additional Family Medical History / Comment(s): PRIMARY PULMONARY HYPERTENSION Medications and Allergies Home Medications Medication Instructions Recorded Confirmed Type Aspirin 81 mg PO DAILY 30 Days tab 01/29/21 02/19/24 Rx fluPHENAZine decanoate [Prolixin 50 mg IM Q14D 08/03/22 02/19/24 History Decanoate] Pantoprazole Sodium [Protonix] 40 mg PO DAILY #15 tab 08/05/22 02/19/24 Rx Acetaminophen Tab [Tylenol] 650 mg PO TID PRN 08/07/23 02/19/24 History Cholecalciferol [Vitamin D3 (125 125 mcg PO DAILY 08/07/23 02/19/24 History Mcg = 5000 Iu)] Loratadine [Claritin] 10 mg PO DAILY 08/07/23 02/19/24 History amLODIPine [Norvasc] 10 mg PO DAILY 08/07/23 02/19/24 History Propranolol [Inderal] 20 mg PO DAILY #30 tab 08/27/23 02/19/24 Rx QUEtiapine [SEROquel] 50 mg PO HS #30 tab 08/27/23 02/19/24 Rx Potassium Chloride ER [K-Dur 10] 10 meq PO DAILY 01/20/24 02/19/24 History Ondansetron Odt [Zofran Odt] 4 mg PO Q8HR PRN #10 tab 02/16/24 02/19/24 Rx Allergies Allergy/AdvReac Type Severity Reaction Status Date / Time clozapine AdvReac Hypotension Verified 02/19/24 17:16 /Diarrhea divalproex sodium AdvReac Hyponatremi Verified 02/19/24 17:16 [From Depakote] a Physical Exam Vitals: Vital Signs Temp Pulse Resp BP Pulse Ox 02/19/24 17:48 98.7 F 79 18 148/98 94 L 02/19/24 11:53 97.6 F 92 18 129/95 97 Intake and Output 02/19/24 02/19/24 02/19/24 06:59 14:59 22:59 Output Total 775 2004 Balance -775 -2004 Output: Urine 775 1075 Post Void Residual 930 Other: Weight 95.254 kg Results CBC & Chem 7: 02/19/24 13:38 02/19/24 13:38 Labs: Abnormal Lab Results - Last 24 Hours (Table) 02/19/24 Range/Units 13:38 Sodium 131 L (137-145) mmol/L Potassium 3.4 L (3.5-5.1) mmol/L Carbon Dioxide 20 L (22-30) mmol/L BUN 4 L (9-20) mg/dL Creatinine 0.63 L (0.66-1.25) mg/dL Glucose 103 H (74-99) mg/dL Magnesium 1.4 L (1.6-2.3) mg/dL Assessment and Plan Assessment: I have seen and evaluated the patient today. I Discussed the case with the resident and agree with the resident's findings I edited the assessment and plan as necessary as documented in the resident's note.
[2024-02-20] MEDS: PANTOPRAZOLE 40 MG TABLET PO SCH (08:19)
[2024-02-20] MEDS: THIAMINE 100 MG TAB PO SCH (08:19)
[2024-02-20] MEDS: amLODIPine 10 MG TAB PO SCH (08:19)
[2024-02-20] MEDS: ENOXAPARIN 40 MG/0.4 ML SYRINGE SQ SCH (08:19)
[2024-02-20] MEDS: ASPIRIN 81 MG PO SCH (08:19)
[2024-02-20] MEDS ORDERED: PANTOPRAZOLE 40 MG/10 ML VIAL IV SCH (09:00)
[2024-02-20] MEDS: PROPRANOLOL 20 MG TAB PO SCH (09:06)
[2024-02-20] MEDS: SODIUM CHLORIDE 0.9% 1,000 ML IV SCH (09:06)
[2024-02-20 10:35] LABS: ALT 24 U/L (10-49); AST 27 U/L (14-35); Albumin 3.9 g/dL (3.8-4.9); Albumin/Globulin Ratio 1.95 Ratio (1.60-3.17); Alkaline Phosphatase 53 U/L (41-126); BUN/Creat Ratio 6.86 Ratio (12.00-20.00); Blood Urea Nitrogen 4.8 mg/dL (9.0-27.0); Calcium 8.6 mg/dL (8.7-10.3); Carbon Dioxide 23.1 mmol/L (21.6-31.8); Chloride 103 mmol/L (96-109); Glucose 104 mg/dL (70-110); Magnesium 1.7 mg/dL (1.5-2.4); Potassium 3.8 mmol/L (3.5-5.5); Sodium 138 mmol/L (135-145); Total Bilirubin 1.4 mg/dL (0.3-1.2); Total Protein 5.9 g/dL (6.2-8.2)
[2024-02-20 10:38] LABS: Basophils # (A) 0.07 X 10*3/uL (0.00-0.10); Eosinophils # (A) 0.23 X 10*3/uL (0.04-0.35); Eosinophils % (A) 3.2 %; HCT 39.5 % (39.6-50.0); HGB 14.1 g/dL (13.0-17.0); Lymphocytes # (A) 1.45 X 10*3/uL (0.90-5.00); Lymphocytes % (A) 20.2 %; MCH 32.3 pg (27.0-32.0); MCHC 35.7 g/dL (32.0-37.0); MCV 90.6 FL (80.0-97.0); Mean Platelet Volume 10.8 FL (9.5-12.2); Monocytes # (A) 0.95 X 10*3/uL (0.20-1.00); Monocytes % (A) 13.2 %; NRBC Per 100 WBC 0 X 10*3/uL (0.00-0.01); Neutrophils # (A) 4.45 X 10*3/uL (1.80-7.70); Neutrophils % (A) 62.1 %; Platelet Count 180 X 10*3/uL (140-440); RBC 4.36 X 10*6/uL (4.40-5.60); RDW 13.2 % (11.5-14.5); WBC 7.17 X 10*3/uL (4.50-10.00)
--- NOTE | 2024-02-20 10:41 | P.GSCN ---
History of Present Illness Consult date: 02/20/24 History of present illness: 58-year-old male who came in the hospital for abdominal pain. The patient does have a history of schizophrenia and his history is questionable. Apparently had abdominal pain and the catheters placed and he seemed to get relief however he states that his abdominal pain now. The catheters draining appropriately. I saw the patient 5 years ago for out and obstruction of the lower urinary tract. He had a moderate residual. He's placed on alpha blockers but never followed up. Really not give me much interim history. He does state that his stream is somewhat slow. He denies incontinence or infection. There's been no hematuria. Review of Systems ROS unobtainable: due to mental status Past Medical History Past Medical History: GERD/Reflux, Hypertension, Vascular Disorder Additional Past Medical History / Comment(s): ETOH abuse, alcohol withdrawl with tremens, diverticular disease, benign colon polyp, varicose veins. History of Any Multi-Drug Resistant Organisms: None Reported Past Surgical History: No Surgical Hx Reported Additional Past Surgical History / Comment(s): Teeth extractions, colonoscopies. Past Anesthesia/Blood Transfusion Reactions: No Reported Reaction Additional Past Anesthesia/Blood Transfusion Reaction / Comm: Never had Past Psychological History: Anxiety, Depression, Schizophrenia Additional Psychological History / Comment(s): Pt does not drive, his brother drives him or he takes the bus. He goes to [facility]. He manages his own medications. Smoking Status: Never smoker Past Alcohol Use History: Heavy Additional Past Alcohol Use History / Comment(s): Pt has ETOH abuse Past Drug Use History: None Reported - Past Family History Father Family Medical History: Myocardial Infarction ([place]) Additional Family Medical History / Comment(s): AT AGE 58 FROM [place] Mother Family Medical History: Deep Vein Thrombosis (DVT), Hypertension Additional Family Medical History / Comment(s): PRIMARY PULMONARY HYPERTENSION Medications and Allergies Home Medications Medication Instructions Recorded Confirmed Type Aspirin 81 mg PO DAILY 30 Days tab 01/29/21 02/19/24 Rx fluPHENAZine decanoate [Prolixin 50 mg IM Q14D 08/03/22 02/19/24 History Decanoate] Pantoprazole Sodium [Protonix] 40 mg PO DAILY #15 tab 08/05/22 02/19/24 Rx Acetaminophen Tab [Tylenol] 650 mg PO TID PRN 08/07/23 02/19/24 History Cholecalciferol [Vitamin D3 (125 125 mcg PO DAILY 08/07/23 02/19/24 History Mcg = 5000 Iu)] Loratadine [Claritin] 10 mg PO DAILY 08/07/23 02/19/24 History amLODIPine [Norvasc] 10 mg PO DAILY 08/07/23 02/19/24 History Propranolol [Inderal] 20 mg PO DAILY #30 tab 08/27/23 02/19/24 Rx QUEtiapine [SEROquel] 50 mg PO HS #30 tab 08/27/23 02/19/24 Rx Potassium Chloride ER [K-Dur 10] 10 meq PO DAILY 01/20/24 02/19/24 History Ondansetron Odt [Zofran Odt] 4 mg PO Q8HR PRN #10 tab 02/16/24 02/19/24 Rx Allergies Allergy/AdvReac Type Severity Reaction Status Date / Time clozapine AdvReac Hypotension Verified 02/19/24 17:16 /Diarrhea divalproex sodium AdvReac Hyponatremi Verified 02/19/24 17:16 [From Depakote] a Surgical - Exam Vital Signs Temp Pulse Resp BP Pulse Ox 97.6 F 92 18 129/95 97 02/19/24 11:53 02/19/24 11:53 02/19/24 11:53 02/19/24 11:53 02/19/24 11:53 - Genitourinary indwelling catheter, the patient declines rectal - Neurologic confused - Psychiatric speech is normal Results - Labs 02/20/24 05:55 02/20/24 05:55 Abnormal Lab Results - Last 24 Hours (Table) 02/19/24 02/20/24 02/20/24 Range/Units 13:38 05:55 05:55 RBC 4.36 L (4.40-5.60) X 10*6/uL Hct 39.5 L (39.6-50.0) % MCH 32.3 H (27.0-32.0) pg Sodium 131 L (137-145) mmol/L Potassium 3.4 L (3.5-5.1) mmol/L Carbon Dioxide 20 L (22-30) mmol/L BUN 4 L 4.8 L (9-20) mg/dL Creatinine 0.63 L (0.66-1.25) mg/dL BUN/Creatinine Ratio 6.86 L (12.00-20.00) Ratio Glucose 103 H (74-99) mg/dL Calcium 8.6 L (8.7-10.3) mg/dL Magnesium 1.4 L (1.6-2.3) mg/dL Total Bilirubin 1.4 H (0.3-1.2) mg/dL Total Protein 5.9 L (6.2-8.2) g/dL Diabetes panel 02/19/24 02/20/24 Range/Units 13:38 05:55 Sodium 131 L 138 (137-145) mmol/L Potassium 3.4 L 3.8 (3.5-5.1) mmol/L Chloride 101 103 (98-107) mmol/L Carbon Dioxide 20 L 23.1 (22-30) mmol/L BUN 4 L 4.8 L (9-20) mg/dL Creatinine 0.63 L 0.7 (0.66-1.25) mg/dL Glucose 103 H 104 (74-99) mg/dL Calcium 8.9 8.6 L (8.4-10.2) mg/dL AST 36 27 (17-59) U/L ALT 28 24 (4-49) U/L Alkaline Phosphatase 57 53 (38-126) U/L Total Protein 6.5 5.9 L (6.3-8.2) g/dL Albumin 4.1 3.9 (3.5-5.0) g/dL Calcium panel 02/19/24 02/20/24 Range/Units 13:38 05:55 Calcium 8.9 8.6 L (8.4-10.2) mg/dL Phosphorus 3.9 3.0 (2.5-4.5) mg/dL Albumin 4.1 3.9 (3.5-5.0) g/dL Pituitary panel 02/19/24 02/20/24 Range/Units 13:38 05:55 Sodium 131 L 138 (137-145) mmol/L Potassium 3.4 L 3.8 (3.5-5.1) mmol/L Chloride 101 103 (98-107) mmol/L Carbon Dioxide 20 L 23.1 (22-30) mmol/L BUN 4 L 4.8 L (9-20) mg/dL Creatinine 0.63 L 0.7 (0.66-1.25) mg/dL Glucose 103 H 104 (74-99) mg/dL Calcium 8.9 8.6 L (8.4-10.2) mg/dL Adrenal panel 02/19/24 02/20/24 Range/Units 13:38 05:55 Sodium 131 L 138 (137-145) mmol/L Potassium 3.4 L 3.8 (3.5-5.1) mmol/L Chloride 101 103 (98-107) mmol/L Carbon Dioxide 20 L 23.1 (22-30) mmol/L BUN 4 L 4.8 L (9-20) mg/dL Creatinine 0.63 L 0.7 (0.66-1.25) mg/dL Glucose 103 H 104 (74-99) mg/dL Calcium 8.9 8.6 L (8.4-10.2) mg/dL Total Bilirubin 1.3 1.4 H (0.2-1.3) mg/dL AST 36 27 (17-59) U/L ALT 28 24 (4-49) U/L Alkaline Phosphatase 57 53 (38-126) U/L Total Protein 6.5 5.9 L (6.3-8.2) g/dL Albumin 4.1 3.9 (3.5-5.0) g/dL Assessment and Plan Assessment: impression: Urine retention probably acute versus chronic a. Its a frenular. Recommendations: I'll place him on an alpha-sarah to see if it improves his situation with the catheter comes out for a voiding trial.
--- NOTE | 2024-02-20 13:10 | P.NPCON ---
History of Present Illness - History of Present Illness Patient is a 58-year-old male who was admitted to the hospital with abdominal discomfort. Patient was noted to have urine retention and Cotton catheter was placed. a post void residual was elevated at 930. 24 hour urine output documented at 2.7 L. renal function is preserved. Serum creatinine is 0.6 mg/dL. No hypernatremia noted.. Blood glucose 103 Past Medical History Past Medical History: GERD/Reflux, Hypertension, Vascular Disorder Additional Past Medical History / Comment(s): ETOH abuse, alcohol withdrawl with tremens, diverticular disease, benign colon polyp, varicose veins. History of Any Multi-Drug Resistant Organisms: None Reported Past Surgical History: No Surgical Hx Reported Additional Past Surgical History / Comment(s): Teeth extractions, colonoscopies. Past Anesthesia/Blood Transfusion Reactions: No Reported Reaction Additional Past Anesthesia/Blood Transfusion Reaction / Comment(s): Never had Past Psychological History: Anxiety, Depression, Schizophrenia Additional Psychological History / Comment(s): Pt does not drive, his brother drives him or he takes the bus. He goes to [facility]. He manages his own medic ations. Smoking Status: Never smoker Past Alcohol Use History: Heavy Additional Past Alcohol Use History / Comment(s): Pt has ETOH abuse Past Drug Use History: None Reported - Past Family History Father Family Medical History: Myocardial Infarction ([place]) Additional Family Medical History / Comment(s): AT AGE 58 FROM [place] Mother Family Medical History: Deep Vein Thrombosis (DVT), Hypertension Additional Family Medical History / Comment(s): PRIMARY PULMONARY HYPERTENSION Medications and Allergies Home Medications Medication Instructions Recorded Confirmed Type Aspirin 81 mg PO DAILY 30 Days tab 01/29/21 02/19/24 Rx fluPHENAZine decanoate [Prolixin 50 mg IM Q14D 08/03/22 02/19/24 History Decanoate] Pantoprazole Sodium [Protonix] 40 mg PO DAILY #15 tab 08/05/22 02/19/24 Rx Acetaminophen Tab [Tylenol] 650 mg PO TID PRN 08/07/23 02/19/24 History Cholecalciferol [Vitamin D3 (125 125 mcg PO DAILY 08/07/23 02/19/24 History Mcg = 5000 Iu)] Loratadine [Claritin] 10 mg PO DAILY 08/07/23 02/19/24 History amLODIPine [Norvasc] 10 mg PO DAILY 08/07/23 02/19/24 History Propranolol [Inderal] 20 mg PO DAILY #30 tab 08/27/23 02/19/24 Rx QUEtiapine [SEROquel] 50 mg PO HS #30 tab 08/27/23 02/19/24 Rx Potassium Chloride ER [K-Dur 10] 10 meq PO DAILY 01/20/24 02/19/24 History Ondansetron Odt [Zofran Odt] 4 mg PO Q8HR PRN #10 tab 02/16/24 02/19/24 Rx Allergies Allergy/AdvReac Type Severity Reaction Status Date / Time clozapine AdvReac Hypotension Verified 02/19/24 17:16 /Diarrhea divalproex sodium AdvReac Hyponatremi Verified 02/19/24 17:16 [From Depakote] a Physical Exam Vitals: Vital Signs Temp Pulse Pulse Resp BP BP BP 02/20/24 12:38 97.9 F 81 16 135/90 02/20/24 09:53 131/88 143/93 02/20/24 09:11 97.8 F 85 16 157/103 154/103 02/20/24 07:03 98.6 F 70 17 115/76 02/20/24 06:07 98.2 F 79 17 116/78 02/20/24 03:30 98.3 F 79 16 126/76 02/20/24 01:35 98.6 F 94 18 114/77 02/19/24 20:10 98.4 F 100 18 132/85 02/19/24 17:48 98.7 F 79 18 148/98 Pulse Ox 02/20/24 12:38 97 02/20/24 09:53 02/20/24 09:11 99 02/20/24 07:03 94 L 02/20/24 06:07 95 02/20/24 03:30 98 02/20/24 01:35 98 02/19/24 20:10 98 02/19/24 17:48 94 L Intake and Output 02/19/24 02/20/24 02/20/24 22:59 06:59 14:59 Intake Total 237 Output Total 2505 350 700 Balance -226 -350 -700 Intake: Oral 237 Output: Urine 1575 350 700 Post Void Residual 930 Other: Voiding Method Indwelling Catheter Weight 95.254 kg patient is awake, comfortable, no acute distress. Examination of the heart S1 and S2 Examination of the lungs bilateral breath sounds are heard Abdomen is soft nontender Examination of lower extremity shows no significant edema. ECONOMIC MANAGER exam grossly intact Results - Lab Results Most recent lab results Calcium 8.6 mg/dL (8.7-10.3) L 02/20/24 05:55 Phosphorus 3.0 mg/dL (2.4-5.1) 02/20/24 05:55 Magnesium 1.7 mg/dL (1.5-2.4) 02/20/24 05:55 02/20/24 05:55 02/20/24 05:55 Assessment and Plan Assessment: 1. Urine retention status post Cotton catheter placement and being followed by urology. Abdominal computed tomography scan on 01/16/2024 did not show any r enal abnormalities Franco at bladder was prominent at that time. No significant polyuria noted. 2. Hypokalemia status post replacement. 3. Mild hyponatremia associated with urine retention and hypovolemia, currently improved. Continue with normal saline. 4. Hypomagnesemia associated with use of proton pump inhibitors, status post replacement 5. Hypertension Plan: decrease saline as blood pressure is elevated. Continue to monitor for postobstructive diuresis Monitor electrolytes. Next Thank you for the consultation. We will continue to follow the patient with you during his hospitalization
--- NOTE | 2024-02-20 13:59 | P.PN ---
Subjective Progress Note Date: 02/20/24 Patient is a poor historian due to ongoing psychosis/delusions. Gen: In NAD, non-toxic HEENT: normocephalic, atraumatic, hearing acuity is intant, mucous membranes moist CVS: perfusing all extremities well, no pitting edema, Respiratory: symmetric chest expansion, no accessory muscle use, GI: soft, NTTP, ND, : no suprapubic tenderness, no CVA tenderness MSK/Derm: no rashes, cyanosis Neuro: CN II-XII intact, no motor weakness, Hospital course: Patient is a 58-year-old male with hypertension, anxiety, schizophrenia, depression, GERD, hyponatremia (seen by distributed generation project manager Dr. Silver), hypokalemia, EtOH abuse (last drink today, had history of admission for DTs) who came in for abdominal pain. Assessment/Plan: #. Urinary retention Patient reports inability to urinate. BUN normal at 4 and creatinine normal at 0.63 -Monitor urine output -Cotton catheter for now -BMP daily -Consult urology , nephrology -monitor for post-obstructive diuresis #. Euvolemic hyponatremia due to alcohol intake and poor diet #. Hypomagnesemia due to alcohol intake -IV fluids normal saline 0.9% 75 cc/h -Magnesium replacement per protocol #. Hypokalemia Patient has history of hypokalemia. Potassium 3.4 -s/p Potassium 60 mEq p.o. given in the ED #. Schizophrenia Patient experiencing flight of ideas and homicidal and suicidal ideation. -Consult psychiatry suicide precautions Chronic conditions: #. GERD #. Anxiety #. Depression -Resume home medications once reconciled DVT prophylaxis: Lovenox 40 SQ daily CODE STATUS: Full Discussed with: Patient Anticipated discharge place: pending psych eval Objective - Vital Signs Vital signs: Vital Signs Temp 97.9 F 02/20/24 12:38 Pulse 81 02/20/24 12:38 Resp 16 02/20/24 12:38 BP 135/90 02/20/24 12:38 Pulse Ox 97 02/20/24 12:38 FiO2 Intake & Output 02/19/24 02/20/24 02/20/24 18:59 06:59 18:59 Intake Total 237 Output Total 7000 850 1700 Balance -2780 -613 -1700 Weight 95.254 kg 95.254 kg Intake: Oral 237 Output: Urine 9464 021 5368 Post Void Residual 930 Other: Voiding Method Indwelling Catheter - Labs CBC & Chem 7: 02/20/24 05:55 02/20/24 05:55 Labs: Abnormal Lab Results - Last 24 Hours (Table) 02/19/24 02/20/24 02/20/24 Range/Units 13:38 05:55 05:55 RBC 4.36 L (4.40-5.60) X 10*6/uL Hct 39.5 L (39.6-50.0) % MCH 32.3 H (27.0-32.0) pg Sodium 131 L (137-145) mmol/L Potassium 3.4 L (3.5-5.1) mmol/L Carbon Dioxide 20 L (22-30) mmol/L BUN 4 L 4.8 L (9-20) mg/dL Creatinine 0.63 L (0.66-1.25) mg/dL BUN/Creatinine Ratio 6.86 L (12.00-20.00) Ratio Glucose 103 H (74-99) mg/dL Calcium 8.6 L (8.7-10.3) mg/dL Magnesium 1.4 L (1.6-2.3) mg/dL Total Bilirubin 1.4 H (0.3-1.2) mg/dL Total Protein 5.9 L (6.2-8.2) g/dL
--- NOTE | 2024-02-20 14:10 | P.CN ---
Psychiatric Consult - . Consult date: 02/20/24 Consult:: 02/20/24 13:19 IDENTIFYING DATA: Patient is a 57-year-old single, on SSD, male with a significant history of schizophrenia and alcohol use disorder. Currently lives with his brother Reason for consultation: Flight of ideas, suicidal homicidal ideations, history of schizophrenia HPI: Patient has a chronic history of schizophrenia, history of alcohol use disorder as well. He has had similar hospitalizations several times in the past. Patient was brought into the hospital on 02/18 for nausea vomiting and abdominal pain according to ER report. Patient apparently was also endorsing suicidal ideations and depression. He has had several previous psychiatric hospitalizations and medical admissions. He had a sitter by him side today. He was agreeable to speak to play writer today. He was rambling, illogical, nonsensical. He spoke about having several lawsuits with "[employer]" talking about insurance claims and upwards of $100 trillion. He states that people are after him because he is suing them for that much money. He had several other loosely formed delusions. He was mildly irritable at times, rambling. He also spoke about potentially being poisoned by his food. He claims that he is having auditory hallucinations hearing his roto gravure press operator talk to him. Denying any visual hallucinations. Denying any suicidal homicidal ideations intent or plan. Claims that his sleep and appetite have been on and off. He states that he is not using any drugs at this time PAST PSYCHIATRIC HISTORY: Patient has been previously diagnosed with schizophrenia and alcohol use disorder. The patient is currently on a regimen of Prolixin Decanoate. Was previously on Depakote. The patient has had multiple inpatient psychiatric admissions with his last time being in August 2023. He is currently open with [facility]. Patient has no reported previous suicide attempts. PMH: Past Medical History: GERD/Reflux, Hypertension, Vascular Disorder Additional Past Medical History / Comment(s): ETOH abuse, alcohol withdrawl with tremens, diverticular disease, benign colon polyp, varicose veins. History of Any Multi-Drug Resistant Organisms: None Reported Past Surgical History: No Surgical Hx Reported Additional Past Surgical History / Comment(s): Teeth extractions, colonoscopies. Past Anesthesia/Blood Transfusion Reactions: No Reported Reaction Additional Past Anesthesia/Blood Transfusion Reaction / Comment(s): Never had Past Psychological History: Anxiety, Depression, Schizophrenia Smoking Status: Never smoker Past Alcohol Use History: Heavy Past Drug Use History: None Reported ALLERGIES: NO KNOWN DRUG ALLERGIES CHEMICAL DEPENDENCY HISTORY: He has a history of alcohol use disorder FAMILY PSYCHIATRIC/SUBSTANCE USE HISTORY: No reported family psychiatric history. One of his cousins reportedly committed suicide by carbon monoxide poisoning. SOCIAL HISTORY: Patient was born and raised in [place] by his parents. He currently lives with his brother currently. He is unemployed and receives Social Security disability. He attended some college. MENTAL STATUS EXAM: General Appearance: Patient appears to be stated age is alert, directable, and attempts to cooperate. Patient appears to have fair hygiene and grooming. Behavior: Patient is lying down in bed without any agitated behavior. Eye cont act is appropriate. Mildly irritable Speech: Patient's speech is rambling, loose associations Mood/Affect: Patient reports their mood is "ok." Affect is blunted. Suicidality/Homicidality: Patient denies having any homicidal ideation intent or plan. Denies any suicidal ideations intent or plan Perceptions: Patient denies any visual hallucinations, he is endorsing auditory hallucinations claiming that he hears his roto gravure press operator talking to him Though content/process: Patient is delusional, flight of ideas, rambling, illogical. Memory and concentration: AOX3, grossly intact for the purposes of this session. Cannot spell "WORLD" backwards Judgment and insight: chronically poor IMPRESSIONS: Schizophrenia Alcohol use disorder Nicotine dependence PLAN: -At this time patient DOES meet criteria for inpatient psychiatric admission. -Patient DOES NOT have decision making capacity at this time and is unable to reason through and communicate/appreciate the risks, benefits and alternatives to treatment. -Would recommend the following medication changes/additions: Can continue current psychiatric medications as prescribed until patient is transferred to the mental health unit after being medically cleared. -CIWA protocol with PRN Ativan for alcohol withdrawal. Continue to monitor vital signs. -Continue 1:1 sitter for safety until patient is safely transferred to the mental health unit -Cannot leave AMA at this time. Patient will need a petition and certification if attempting to leave AMA. -When medically stable, patient is eligible for transfer to a psych bed when available. -Communicated plan to patient's nurse -Psychiatry will sign off at this time -Please contact with any questions.
[2024-02-20] MEDS: ONDANSETRON 4 MG/2 ML VIAL IVP PRN (15:50)
[2024-02-20] MEDS: TAMSULOSIN 0.4 MG CAP.ER.24H PO SCH (17:49)
[2024-02-20] MEDS: QUEtiapine 50 MG TAB PO SCH (20:21)
[2024-02-20] MEDS: LORazepam 0.5 MG TAB PO PRN (23:20)
[2024-02-20 23:37] LABS: Glucose,Whole Blood 109 mg/dL (70-110)
--- NOTE | 2024-02-21 12:54 | P.PN ---
Subjective Progress Note Date: 02/21/24 No new complaints. Pt put out 6L of urine in last 24 hours. Nephrology is monitoring for post-obstructive diuresis and replacing IVF accordingly Gen: In NAD, non-toxic HEENT: normocephalic, atraumatic, hearing acuity is intant, mucous membranes moist CVS: perfusing all extremities well, no pitting edema, Respiratory: symmetric chest expansion, no accessory muscle use, GI: soft, NTTP, ND, : no suprapubic tenderness, no CVA tenderness MSK/Derm: no rashes, cyanosis Neuro: CN II-XII intact, no motor weakness, Hospital course: Patient is a 58-year-old male with hypertension, anxiety, schizophrenia, depression, GERD, hyponatremia (seen by cement mason highways and streets Dr. Silver), hypokalemia, EtOH abuse (last drink today, had history of admission for DTs) who came in for abdominal pain. Assessment/Plan: #. Urinary retention Patient reports inability to urinate. BUN normal at 4 and creatinine normal at 0.63 -Monitor urine output -Cotton catheter for now -BMP daily -Consult urology , nephrology -monitor for post-obstructive diuresis #. Euvolemic hyponatremia due to alcohol intake and poor diet #. Hypomagnesemia due to alcohol intake -IV fluids normal saline 0.9% 75 cc/h -Magnesium replacement per protocol #. Hypokalemia Patient has history of hypokalemia. Potassium 3.4 -s/p Potassium 60 mEq p.o. given in the ED #. Schizophrenia Patient experiencing flight of ideas and homicidal and suicidal ideation. -Consult psychiatry suicide precautions Chronic conditions: #. GERD #. Anxiety #. Depression -Resume home medications once reconciled DVT prophylaxis: Lovenox 40 SQ daily CODE STATUS: Full Discussed with: Patient Anticipated discharge place: pending psych eval Objective - Vital Signs Vital signs: Vital Signs Temp 98.5 F 02/21/24 07:20 Pulse 82 02/21/24 07:20 Resp 16 02/21/24 07:20 BP 122/81 02/21/24 07:20 Pulse Ox 95 02/21/24 07:20 FiO2 Intake & Output 02/20/24 02/21/24 02/21/24 18:59 06:59 18:59 Intake Total 600 Output Total 4500 1500 Balance -3900 -1500 Weight 95.254 kg Intake: Intake, IV Titration 600 Amount Sodium Chloride 0.9% 1, 600 000 ml @ 50 mls/hr IV . Q20H [facility] Rx#:[id number] Output: Urine 4500 1500 Other: Voiding Method Indwelling Catheter Indwelling Catheter # Bowel Movements 1 - Labs CBC & Chem 7: 02/20/24 05:55 02/20/24 05:55
[2024-02-21] MEDS: ACETAMINOPHEN TAB 325 MG TAB PO PRN (15:46)
--- NOTE | 2024-02-21 18:00 | P.PN ---
Subjective Patient is seen for follow-up for urinary retention. Currently with indwelling Cotton catheter. 24-hour urine documented at 6 L. No significant complaints. Objective - Vital Signs Vital signs: Vital Signs Temp 98.5 F 02/21/24 13:25 Pulse 81 02/21/24 13:25 Resp 16 02/21/24 13:25 BP 134/87 02/21/24 13:25 Pulse Ox 96 02/21/24 13:25 FiO2 Intake & Output 02/20/24 02/21/24 02/21/24 18:59 06:59 18:59 Intake Total 600 1302 Output Total 4500 1500 350 Balance -3900 -1500 952 Weight 95.254 kg Intake: Intake, IV Titration 600 Amount Sodium Chloride 0.9% 1, 600 000 ml @ 50 mls/hr IV . Q20H [facility] Rx#:[id number] Oral 1302 Output: Urine 4500 1500 350 Other: Voiding Method Indwelling Catheter Indwelling Catheter Indwelling Catheter # Bowel Movements 1 - Exam Patient is awake comfortable no acute distress. Examination shows he is euvolemic with no evidence of edema lower extremities. - Labs CBC & Chem 7: 02/20/24 05:55 02/20/24 05:55 Assessment and Plan Assessment: 1. Urine retention status post Cotton catheter placement and being followed by urology. Abdominal computed tomography scan on 01/16/2024 did not show any renal abnormalities. Bladder was prominent at that time. 6 L of urine output documented for 24 hours most likely underlying postobstructive diuresis. 2. Hypokalemia status post replacement. 3. Mild hyponatremia associated with urine retention and hypovolemia, currently improved. Continue with normal saline. 4. Hypomagnesemia associated with use of proton pump inhibitors, status post replacement 5. Hypertension Plan: Continue to monitor for postobstructive diuresis Monitor electrolytes. T
[2024-02-21] MEDS: LORazepam 1 MG TAB PO PRN (22:16)
[2024-02-22 07:54] VITALS: RESP 16
--- NOTE | 2024-02-22 09:46 | P.DS ---
Providers Date of admission: 02/19/24 17:39 Expected date of discharge: 02/22/24 Attending physician: Carlee Barnes MD Consults: 02/19/24 17:37 Consult Physician Routine Consulting Provider: Nba Rivero Consult Reason/Comments: polyuria Do you want consulting provider notified?: Yes 02/19/24 20:20 Consult Physician Urgent Consulting Provider: Maury Yuen Consult Reason/Comments: flight of ideas, suicidal and homicidal ideation, hx of schizophrenia Do you want consulting provider notified?: Yes 02/20/24 00:47 Consult Physician Routine Consulting Provider: Shravan Smith Consult Reason/Comments: urinary obstruction Do you want consulting provider notified?: Yes Primary care physician: [facility] Course: #. Urinary retention #. Euvolemic hyponatremia due to alcohol intake and poor diet #. Hypomagnesemia due to alcohol intake #. Hypokalemia #. Schizophrenia #. GERD #. Anxiety #. Depression Hospital course: Patient is a 58-year-old male with hypertension, anxiety, schizophrenia, depression, GERD, hyponatremia (seen by foster parent Dr. Silver), hypokalemia, EtOH abuse (last drink today, had history of admission for DTs) who came in for abdominal pain. Patient was noted to have urinary retention and had Cotton catheter placement. Afterwards, he was monitored for postobstructive diuresis with nephrology consultation. Initially patient put out 6 L of urine in 24 hours, but this tapered off. Patient was started on Flomax. He was seen by psychiatry who recommended patient be transferred to the mental health unit after being medically stabilized. Patient is medically cleared at this time to go to the mental health unit for further management of his psychosis from schizophrenia. Gen: In NAD, non-toxic HEENT: normocephalic, atraumatic, hearing acuity is intant, mucous membranes moist CVS: perfusing all extremities well, no pitting edema, Respiratory: symmetric chest expansion, no accessory muscle use, GI: soft, NTTP, ND, : no suprapubic tenderness, no CVA tenderness MSK/Derm: no rashes, cyanosis Neuro: CN II-XII intact, no motor weakness, Patient Condition at Discharge: Good Plan - Discharge Summary Discharge Rx Participant: No New Discharge Prescriptions: New Tamsulosin [Flomax] 0.4 mg PO PC-SUPPER #0 cap Thiamine [Vitamin B-1] 100 mg PO DAILY tab Continue fluPHENAZine decanoate [Prolixin Decanoate] 50 mg IM Q14D Pantoprazole Sodium [Protonix] 40 mg PO DAILY #15 tab Acetaminophen Tab [Tylenol] 650 mg PO TID PRN PRN Reason: Fever And/ Or Pain Cholecalciferol [Vitamin D3 (125 Mcg = 5000 Iu)] 125 mcg PO DAILY Loratadine [Claritin] 10 mg PO DAILY Propranolol [Inderal] 20 mg PO DAILY #30 tab QUEtiapine [SEROquel] 50 mg PO HS #30 tab Ondansetron Odt [Zofran ODT] 4 mg PO Q8HR PRN #10 tab PRN Reason: Nausea Aspirin 81 mg PO DAILY 30 Days tab amLODIPine [Norvasc] 10 mg PO DAILY Potassium Chloride ER [K-Dur 10] 10 meq PO DAILY Discharge Medication List Aspirin 81 mg PO DAILY 30 Days tab 01/29/21 [Rx] fluPHENAZine decanoate [Prolixin Decanoate] 50 mg IM Q14D 08/03/22 [History] Pantoprazole Sodium [Protonix] 40 mg PO DAILY #15 tab 08/05/22 [Rx] Acetaminophen Tab [Tylenol] 650 mg PO TID PRN 08/07/23 [History] Cholecalciferol [Vitamin D3 (125 Mcg = 5000 Iu)] 125 mcg PO DAILY 08/07/23 [History] Loratadine [Claritin] 10 mg PO DAILY 08/07/23 [History] amLODIPine [Norvasc] 10 mg PO DAILY 08/07/23 [History] Propranolol [Inderal] 20 mg PO DAILY #30 tab 08/27/23 [Rx] QUEtiapine [SEROquel] 50 mg PO HS #30 tab 08/27/23 [Rx] Potassium Chloride ER [K-Dur 10] 10 meq PO DAILY 01/20/24 [History] Ondansetron Odt [Zofran ODT] 4 mg PO Q8HR PRN #10 tab 02/16/24 [Rx] Tamsulosin [Flomax] 0.4 mg PO PC-SUPPER #0 cap 02/22/24 [Rx] Thiamine [Vitamin B-1] 100 mg PO DAILY tab 02/22/24 [Rx] Follow up Appointment(s)/Referral(s): [facility] [Primary Care Provider] - 1-2 days Patient Instructions/Handouts: Acute Nausea and Vomiting (ED) Discharge Disposition: TRANSFER TO PSYCH HOSP/UNIT
[2024-02-22 10:04] LABS: Magnesium 1.5 mg/dL (1.5-2.4)
[2024-02-22 10:25] LABS: BUN/Creat Ratio 13.29 Ratio (12.00-20.00); Blood Urea Nitrogen 9.3 mg/dL (9.0-27.0); Calcium 8.8 mg/dL (8.7-10.3); Carbon Dioxide 23.4 mmol/L (21.6-31.8); Chloride 103 mmol/L (96-109); Glucose 103 mg/dL (70-110); Potassium 3.6 mmol/L (3.5-5.5); Sodium 136 mmol/L (135-145)
[2024-02-22 12:54] VITALS: BP 138/93; PULSE 72; TEMP 98
[2024-02-22] MEDS: LORazepam 2 MG/ML INJ IV STA (17:00)
== END 2024-02-22 17:26 | DRG 897 ==
LOC: EC 11:40 → 4SSUR 17:39 → 5NMEDONC 02-20 00:54
PROVIDERS: ADMIT Internal Medicine; ATTEND Internal Medicine
DX: F10.229 Alcohol dependence with intoxication, unspecified (principal); E87.1 Hypo-osmolality and hyponatremia; R45.851 Suicidal ideations; R45.850 Homicidal ideations; F20.9 Schizophrenia, unspecified; F32.A Depression, unspecified; I10 Essential (primary) hypertension; K21.9 Gastro-esophageal reflux disease without esophagitis; E83.42 Hypomagnesemia; F41.9 Anxiety disorder, unspecified; E87.6 Hypokalemia; E86.1 Hypovolemia; R33.9 Retention of urine, unspecified; Y90.3 Blood alcohol level of 60-79 mg/100 ml; Z79.82 Long term (current) use of aspirin; Z79.899 Other long term (current) drug therapy; Z86.0100 Personal history of colon polyps, unspecified
CPT/HCPCS: 36415; 51798; 80048; 80053; 80320; 81003; 82075; 83690; 83735; 84100; 85025; 87635; 96361; 96374; 96375; 99285

== ENCOUNTER 2024-02-22 17:02 | Inpatient (IN) | payer MEDICARE, MEDICAID ==
[2024-02-22] MEDS ORDERED: ACETAMINOPHEN TAB 325 MG TAB PO PRN (18:32)
[2024-02-22] MEDS ORDERED: HALOPERIDOL LACTATE 5 MG/ML 1 ML VIAL IM PRN (18:32)
[2024-02-22] MEDS ORDERED: IBUPROFEN 600 MG TAB PO PRN (18:32)
[2024-02-22] MEDS ORDERED: MAGNESIUM HYDROXIDE 2,400 MG/30 ML CUP PO PRN (18:32)
[2024-02-22] MEDS ORDERED: haloperidoL 5 MG TAB PO PRN (18:32)
[2024-02-22] MEDS ORDERED: LORazepam 1 MG TAB PO PRN ×2 (18:32)
[2024-02-22] MEDS: TAMSULOSIN 0.4 MG CAP.ER.24H PO SCH (19:03)
[2024-02-22] MEDS: QUEtiapine 50 MG TAB PO SCH (20:13)
[2024-02-23] MEDS: THIAMINE 100 MG TAB PO SCH (08:31)
[2024-02-23] MEDS: FOLIC ACID 1 MG TAB PO SCH (08:32)
[2024-02-23] MEDS: amLODIPine 10 MG TAB PO SCH (08:32)
[2024-02-23] MEDS: PANTOPRAZOLE 40 MG TABLET PO SCH (08:32)
[2024-02-23] MEDS: ASPIRIN 81 MG PO SCH (08:32)
[2024-02-23] MEDS: CHOLECALCIFEROL 125 MCG (5000 IU) TABLET PO SCH (08:32)
[2024-02-23] MEDS: MULTIVITAMINS, THERA 1 EACH TAB PO SCH (08:32)
[2024-02-23] MEDS: LORATADINE 10 MG TAB PO SCH (08:32)
[2024-02-23] MEDS: PROPRANOLOL 20 MG TAB PO SCH (08:32)
[2024-02-23 08:47] LABS: Basophils % (A) 0 %; Eosinophils # (A) 0.4 k/uL (0-0.7); Eosinophils % (A) 7 %; HCT 43.9 % (39.0-53.0); HGB 15.3 gm/dL (13.0-17.5); Lymphocytes # (A) 1.5 k/uL (1.0-4.8); Lymphocytes % (A) 28 %; MCH 32.9 pg (25.0-35.0); MCHC 34.8 g/dL (31.0-37.0); MCV 94.7 fL (80.0-100.0); Mean Platelet Volume 8.4; Monocytes # (A) 0.6 k/uL (0-1.0); Monocytes % (A) 11 %; Neutrophils # (A) 2.6 k/uL (1.3-7.7); Neutrophils % (A) 50 %; Platelet Count 152 k/uL (150-450); RBC 4.64 m/uL (4.30-5.90); RDW 13.9 % (11.5-15.5); WBC 5.3 k/uL (3.8-10.6)
[2024-02-23 08:55] LABS: ALT 34 U/L (4-49); AST 38 U/L (17-59); African American GFR (CKD) >90 (>60 ml/min/1.73 sqM); Albumin 4.3 g/dL (3.5-5.0); Alkaline Phosphatase 71 U/L (38-126); Anion Gap 7 mmol/L; Bilirubin, Delta 0.3 mg/dL (0.0-0.2); Bilirubin,Unconjugated 0.9 mg/dL (0.0-1.1); Blood Urea Nitrogen 9 mg/dL (9-20); Calcium 9.7 mg/dL (8.4-10.2); Carbon Dioxide 28 mmol/L (22-30); Chloride 100 mmol/L (98-107); Glucose 103 mg/dL (74-99); Non-African American GFR(CKD) >90 (>60 ml/min/1.73 sqM); Potassium 3.6 mmol/L (3.5-5.1); Sodium 135 mmol/L (137-145); Total Bilirubin 1.2 mg/dL (0.2-1.3); Total Protein 6.8 g/dL (6.3-8.2)
[2024-02-23] MEDS ORDERED: THIAMINE 100 MG TAB PO SCH (09:00)
--- NOTE | 2024-02-23 11:37 | P.HP ---
Psychiatric H&P - . H&P Date: 02/23/24 History & Physical: Allergies Allergy/AdvReac Type Severity Reaction Status Date / Time clozapine AdvReac Hypotension Verified 02/19/24 17:16 /Diarrhea divalproex sodium AdvReac Hyponatremi Verified 02/19/24 17:16 [From Depakote] a Vital Signs Temp 97.8 F 02/23/24 06:29 Pulse 73 02/23/24 06:29 Resp 14 02/23/24 06:29 BP 128/88 02/23/24 06:29 Pulse Ox 96 02/23/24 06:29 FiO2 Intake & Output 02/22/24 02/23/24 02/23/24 18:59 06:59 18:59 Weight 89.448 kg 02/23/24 08:47 IDENTIFYING DATA: Patient is a 57-year-old single, on SSD, male with a significant history of schizophrenia and alcohol use disorder. Currently lives with his brother HPI: Patient presented to the hospital initially on 1016. He was admitted medically and greeting card writer seeing him on the medical floor. As per consult note, "Patient has a chronic history of schizophrenia, history of alcohol use disorder as well. He has had similar hospitalizations several times in the past. Patient was brought into the hospital on 02/18 for nausea vomiting and abdominal pain according to ER report. Patient apparently was also endorsing suicidal ideations and depression. He has had several previous psychiatric hosp italizations and medical admissions. He had a sitter by him side today. He was agreeable to speak to greeting card writer today. He was rambling, illogical, nonsensical. He spoke about having several lawsuits with "[employer]" talking about insurance claims and upwards of $[phone] trillion. He states that people are after him because he is suing them for that much money. He had several other loosely formed delusions. He was mildly irritable at times, rambling. He also spoke about potentially being poisoned by his food. He claims that he is having auditory hallucinations hearing his high school admissions representative talk to him. Denying any visual hallucinations. Denying any suicidal homicidal ideations intent or plan. Claims that his sleep and appetite have been on and off. He states that he is not using any drugs at this time". Upon today's assessment, the patient was seen at the bedside. Patient was sleeping, however was easily aroused, after saying his name. He states that he is tired even though he slept well last night. He states that he is not having any withdrawal symptoms, and asked about discharge. When asked if he is having any auditory hallucinations, he stated that he only hears Elementary Tutor Sandivasquez's voice saying unspeakable words to him. The patient is denying visual hallucinations denying suicidal ideations and homicidal ideations. The patient has been compliant with meds, and denies any side effec ts. He is secluding to his room. Tie Layer encouraged patient to go to groups and participate. PAST PSYCHIATRIC HISTORY: Patient has been previously diagnosed with schizophrenia and alcohol use disorder. The patient is currently on a regimen of Prolixin Decanoate. Was previously on Depakote. The patient has had multiple inpatient psychiatric admissions with his last time being in August 2023. He is currently open with [facility]. Patient has no reported previous suicide attempts. PMH:As per ER note ALLERGIES: as per EMR CHEMICAL DEPENDENCY HISTORY: as per HPI FAMILY PSYCHIATRIC/SUBSTANCE USE HISTORY: No reported family psychiatric history. One of his cousins reportedly committed suicide by carbon monoxide poisoning. SOCIAL HISTORY:Patient was born and raised in [place] by his parents. He currently lives with his brother currently. He is unemployed and receives Social Security disability. He attended some college. MENTAL STATUS EXAM: General Appearance: Patient appears to be stated age is alert, directable, and attempts to cooperate. Patient appears to have fair hygiene and grooming. Behavior: Patient is lying down in bed without any agitated behavior. Speech: Patient's speech is fluent Mood/Affect: Patient reports their mood is "ok." Affect is blunted. Suicidality/Homicidality: Patient denies having any homicidal ideation intent or plan. Denies any suicidal ideations intent or plan Perceptions: Patient denies any visual hallucinations, he is endorsing auditory hallucinations claiming that he hears a senior investigator talking to him Though content/process: Patient is delusional, flight of ideas, rambling, illogical. Memory and concentration: AOX3, grossly intact for the purposes of this session. Cannot spell "WORLD" backwards Judgment and insight: chronically poor STRENGTHS/WEAKNESSES: strength is that patient is [resilient]. Weakness is that patient [has poor judgment and is impulsive] INTELLECT: [average] IMPRESSIONS: Schizophrenia Alcohol use disorder Nicotine dependence PLAN: -Patient is admitted under voluntary status to MHU for stabilization of psychiatric symptoms and safety. Currently on court order, expiring 09/30/24 -Medications : Patient on Prolixin D 50mg IM, due q 2 weeks, next due 03/02/24, seroquel 50mg po qhs for sleep, -Ativan [and Haldol] PRN for agitation/aggression -Started thiamine, MVM for etoh use -CIWA protocol with Ativan PRN for ETOH withdrawal -Patient was counselled on substance abuse and desired to cut back on use -Patient was informed of the risks, benefits and side effects of the medication [and patient verbally consented to taking the medications. ] -Internal Medicine consult to perform medical evaluation and physical. -NRT - nicotine patch -SW on board for discharge planning. Encourage patient to participate in groups to work on coping skills.
[2024-02-23 16:06] LABS: Chol/HDL Ratio 1.44 Ratio; LDL Cholesterol,Calculated 20.1 mg/dL (0.0-131.0); VLDL Calculation 8.34 mg/dL (5.00-40.00)
[2024-02-24] MEDS: MAG HYDROX/AL HYDROX/SIMETH 30 ML CUP PO PRN (09:07)
--- NOTE | 2024-02-24 11:21 | P.PN ---
Progress Note - Text Progress Note Date: 02/24/24 Interval History: Patient was seen laying in his bed today, he was awoken by underwriter solicitation director agreeable to speak. He had several different papers on the other bed with different writings and drawings of money and insurance companies listed on them. He claims that they are just notes for himself. He appears to be fairly nonchalant, claims that he has fairly low energy has been mainly staying in bed. He claims that his mood is "poisoned" he feels like the medications are not helping him. He appeared to be less focused on his delusions today mildly however still talked about insurance companies and being poisoned. States that he slept fairly last night, continues fairly poor/limited insight and judgment, states that he had a poor appetite. Claims that he has an upset stomach today. At this time patient denies any suicidal or homical ideations, intent or plan. Patient denies any auditory, visual hallucinations and denies any paranoia or delusions. Patient denies any side effects from the medications and has been compliant with meds. MENTAL STATUS EXAM: General Appearance: Patient appears to be stated age is alert, laying in bed,. Patient appears to have fair hygiene and grooming Behavior: Patient is lying down in bed without any agitated behavior. Fairly nonchalant Speech: Patient's speech is fluent Mood/Affect: Patient reports their mood is "poisoned" Affect is blunted Suicidality/Homicidality: Patient denies having any homicidal ideation intent or plan. Denies any suicidal ideations intent or plan Perceptions: Patient denies any visual hallucinations, he is endorsing auditory hallucinations claiming that he hears a student development coordinator talking to him, improving mildly Though content/process: Patient is delusional, flight of ideas, rambling, illogical, improving mildly Memory and concentration: AOX3, grossly intact for the purposes of this session Judgment and insight: chronically poor IMPRESSIONS: Schizophrenia Alcohol use disorder Nicotine dependence PLAN: -Patient is admitted under voluntary status to MHU for stabilization of psychiatric symptoms and safety. Currently on court order, expiring 09/30/24 -Medications : Patient on Prolixin D 50mg IM, next dose due q 2 weeks, next due 03/02/24, decrease seroquel 25 mg po qhs for sleep/mood adjunct. -Ativan and Haldol PRN for agitation/aggression -thiamine, MVM for etoh use -D/c CIWA protocol with Ativan PRN for ETOH withdrawal -NRT - nicotine patch -SW on board for discharge planning. Encourage patient to participate in groups to work on coping skills.
--- NOTE | 2024-02-24 18:59 | P.MDCNMH ---
History of Present Illness H&P Date: 02/24/24 Chief Complaint: medical management From recent discharge: Patient is a 58-year-old male with hypertension, anxiety, schizophrenia, depression, GERD, hyponatremia (seen by intelligence operations specialist Dr. Silver), hypokalemia, EtOH abuse (last drink today, had history of admission for DTs) who came in for abdominal pain initially. Patient was noted to have urinary retention and had Cotton catheter placement. Afterwards, he was monitored for postobstructive diuresis with nephrology consultation. Initially patient put out 6 L of urine in 24 hours, but this tapered off. Patient was started on Flomax. He was seen by psychiatry who recommended patient be transferred to the mental health unit after being medically stabilized. Patient was medically cleared to go to the mental health unit for further management of his psychosis from schizophrenia. Interval HPI: Patient has no new complaints today. Is ambulated the hallway without any issues. Was able to urinate just prior to my evaluation, has no abdominal pain. Gen: In NAD, non-toxic HEENT: normocephalic, atraumatic, hearing acuity is intant, mucous membranes moist CVS: perfusing all extremities well, no pitting edema, Respiratory: symmetric chest expansion, no accessory muscle use, GI: soft, NTTP, ND, : no suprapubic tenderness, no CVA tenderness MSK/Derm: no rashes, cyanosis Neuro: CN II-XII intact, no motor weakness, Assessment/plan: #. Schizophrenia #. Urinary retention #. GERD #. Anxiety #. Depression Plan: Home medications reviewed and reconciled. Thank you for this consult. Please reach out if there is any further questions or concerns. Past Medical History Past Medical History: GERD/Reflux, Hypertension, Vascular Disorder Additional Past Medical History / Comment(s): ETOH abuse, alcohol withdrawl with tremens, diverticular disease, benign colon polyp, varicose veins. History of Any Multi-Drug Resistant Organisms: None Reported Past Surgical History: No Surgical Hx Reported Additional Past Surgical History / Comment(s): Teeth extractions, colonoscopies. Past Anesthesia/Blood Transfusion Reactions: No Reported Reaction Additional Past Anesthesia/Blood Transfusion Reaction / Comment(s): Never had Past Psychological History: Anxiety, Depression, Schizophrenia Additional Psychological History / Comment(s): Pt does not drive, his brother drives him or he takes the bus. He goes to [facility]. He manages his own medications. Smoking Status: Never smoker Past Alcohol Use History: Heavy Additional Past Alcohol Use History / Comment(s): Pt has ETOH abuse Past Drug Use History: None Reported - Past Family History Father Family Medical History: Myocardial Infarction ([place]) Additional Family Medical History / Comment(s): AT AGE 58 FROM [place] Mother Family Medical History: Deep Vein Thrombosis (DVT), Hypertension Additional Family Medical History / Comment(s): PRIMARY PULMONARY HYPERTENSION Medications and Allergies Home Medications Medication Instructions Recorded Confirmed Type Aspirin 81 mg PO DAILY 30 Days tab 01/29/21 02/22/24 Rx fluPHENAZine decanoate [Prolixin 50 mg IM Q14D 08/03/22 02/22/24 History Decanoate] Pantoprazole Sodium [Protonix] 40 mg PO DAILY #15 tab 08/05/22 02/22/24 Rx Acetaminophen Tab [Tylenol] 650 mg PO TID PRN 08/07/23 02/22/24 History Cholecalciferol [Vitamin D3 (125 125 mcg PO DAILY 08/07/23 02/22/24 History Mcg = 5000 Iu)] Loratadine [Claritin] 10 mg PO DAILY 08/07/23 02/22/24 History amLODIPine [Norvasc] 10 mg PO DAILY 08/07/23 02/22/24 History Propranolol [Inderal] 20 mg PO DAILY #30 tab 08/27/23 02/22/24 Rx QUEtiapine [SEROquel] 50 mg PO HS #30 tab 08/27/23 02/22/24 Rx Potassium Chloride ER [K-Dur 10] 10 meq PO DAILY 01/20/24 02/22/24 History Ondansetron Odt [Zofran ODT] 4 mg PO Q8HR PRN #10 tab 02/16/24 02/22/24 Rx Tamsulosin [Flomax] 0.4 mg PO PC-SUPPER #0 cap 02/22/24 02/22/24 Rx Thiamine [Vitamin B-1] 100 mg PO DAILY tab 02/22/24 02/22/24 Rx Allergies Allergy/AdvReac Type Severity Reaction Status Date / Time clozapine AdvReac Hypotension Verified 02/19/24 17:16 /Diarrhea divalproex sodium AdvReac Hyponatremi Verified 10/17/24 17:16 [From Depakote] a Physical Exam Osteopathic Statement: *. No significant issues noted on an osteopathic structural exam other than those noted in the History and Physical/Consult. Vitals: Vital Signs Temp Pulse Resp BP Pulse Ox 02/24/24 08:45 98/65 02/24/24 06:38 97.5 F L 71 16 108/73 95 Cranial Nerve Examination - Cranial Nerves Cranial Nerve II- Optic: Intact Cranial Nerve III- Oculomotor: Intact Cranial Nerve IV- Trochlear: Intact Cranial Nerve V- Trigeminal: Intact Cranial Nerve - Abducens: Intact Cranial Nerve VII- Facial: Intact Cranial Nerve VIII- Auditory: Intact Cranial Nerve IX- Glossopharyngeal: Intact Cranial Nerve X- Vagus: Intact Cranial Nerve XI- Accessory: Intact Cranial Nerve XII- Hypoglossal: Intact Results CBC & Chem 7: 02/23/24 08:15 02/23/24 08:15
[2024-02-24] MEDS: QUEtiapine 25 MG TAB PO SCH (20:53)
--- NOTE | 2024-02-25 11:23 | P.PN ---
Progress Note - Text Progress Note Date: 02/25/24 Interval History: Patient was seen laying in his bed today, he was awoken by copy writer agreeable to speak. Patient claims that he is still feeling that his food is poisoned. He claims that his medication is also poisoned as well. Claims that he has a poor appetite. States that he is feeling fairly constipated has not had a bowel movement in several days. Claims that he feels mainly lethargic at this time, laying in bed. Not taking part in many groups. States that he had a poor appetite. Claims that he has an upset stomach today. At this time patient denies any suicidal or homical ideations, intent or plan. Patient denies any auditory, visual hallucinations and denies any paranoia or delusions. Patient denies any side effects from the medications and has been compliant with meds. MENTAL STATUS EXAM: General Appearance: Patient appears to be stated age is alert, laying in bed, P atient appears to have fair hygiene and grooming Behavior: Patient is lying down in bed without any agitated behavior. Fairly nonchalant Speech: Patient's speech is fluent Mood/Affect: Patient reports their mood is "poisoned" Affect is blunted Suicidality/Homicidality: Patient denies having any homicidal ideation intent or plan. Denies any suicidal ideations intent or plan Perceptions: Patient denies any visual hallucinations, he is endorsing auditory hallucinations claiming that he hears a portfolio manager talking to him, improving mildly Though content/process: Patient is delusional, flight of ideas, rambling, illogical, improving mildly Memory and concentration: AOX3, grossly intact for the purposes of this session Judgment and insight: chronically poor IMPRESSIONS: Schizophrenia Alcohol use disorder Nicotine dependence PLAN: -Patient is admitted under voluntary status to MHU for stabilization of psychiatric symptoms and safety. Currently on court order, expiring 09/30/24 -Medications : Patient on Prolixin D 50mg IM, due q 2 weeks, next due 03/02/24, seroquel 25 mg po qhs for sleep/mood adjunct. -Ativan and Haldol PRN for agitation/aggression -thiamine, MVM for etoh use -NRT - nicotine patch -SW on board for discharge planning. Encourage patient to participate in groups to work on coping skills.
[2024-02-25] MEDS: SENNOSIDES-DOCUSATE SODIUM 1 EACH TAB PO SCH (12:25)
--- NOTE | 2024-02-26 11:07 | P.PN ---
Progress Note - Text Progress Note Date: 02/26/24 Interval History: Patient was seen laying in his bed today, he was awoken by telegraphic typewriter repairer agreeable to speak. Patient claims that the pills are making him sick in his stomach. He is secluding to his room, and claims that he does not sleep at night. Not taking part in any groups. States that he had a poor appetite. Claims that he still has an upset stomach today, however, does report that he had a bowel movement, so he refused the stool softener. At this time patient denies any suicidal or homicidal ideations, intent or plan. Patient endorses auditory hallucinations, claims to hear the justice department bells, and Director Internal Control Maryann. denies visual hallucinations and denies any paranoia or delusions. Patient denies any side effects from the medications and has been compliant with meds. MENTAL STATUS EXAM: General Appearance: Patient appears to be stated age is alert, laying in bed, Patient appears to have poor hygiene and grooming Behavior: Patient is lying down in bed without any agitated behavior. Fairly nonchalant Speech: Patient's speech is fluent Mood/Affect: Patient reports their mood is "poisoned" Affect is blunted Suicidality/Homicidality: Patient denies having any homicidal ideation intent or plan. Denies any suicidal ideations intent or plan Perceptions: Patient denies any visual hallucinations, he is endorsing auditory hallucinations claiming that he hears a trial judge talking to him Though content/process: Patient is delusional, flight of ideas, rambling, illogical, improving mildly Memory and concentration: AOX3, grossly intact for the purposes of this session Judgment and insight: chronically poor IMPRESSIONS: Schizophrenia Alcohol use disorder Nicotine dependence PLAN: -Patient is admitted under voluntary status to MHU for stabilization of psychiatric symptoms and safety. Currently on court order, expiring 09/30/24 -Medications : Patient on Prolixin D 50mg IM, due q 10days, next due 02/27/24, seroquel 25 mg po qhs for sleep/mood adjunct. add melatonin 10mg qhs for sleep, -Order CBC, BMP for 02/26 -Ativan and Haldol PRN for agitation/aggression -thiamine, MVM for etoh use -NRT - nicotine patch -SW on board for discharge planning. Encourage patient to participate in groups to work on coping skills.
[2024-02-26] MEDS: MELATONIN 5 MG TABLET PO SCH (21:48)
[2024-02-27 06:43] VITALS: RESP 16; TEMP 97.9
--- NOTE | 2024-02-27 10:50 | P.PN ---
Progress Note - Text Progress Note Date: 02/27/24 Interval History: Patient was seen laying in his bed today, he was awoken by sba underwriter agreeable to speak. Patient states that he is feeling a bit better today, less stomach pain. Continues to mainly keep to himself in his room. He was less tired today. Claims that he is hearing voices telling him about insurance claims and also related to a staff veterinarian. Not taking part in any groups and also refusing medications. When asked more about the medications he states that he does not trust them. States that he had a poor appetite. continues to be fairly delusional. At this time patient denies any suicidal or homicidal ideations, intent or plan. Patient endorses auditory hallucinations, claims to hear the justice department bells, and Three Dimensional Art Instructor Swati. he claims that he does not have any blood in his arms. denies visual hallucinations and denies any paranoia or delusions. Patient denies any side effects from the medications and has been compliant with meds. MENTAL STATUS EXAM: General Appearance: Patient appears to be stated age is alert, laying in bed, Patient appears to have improving hygiene and grooming Behavior: Patient is lying down in bed without any agitated behavior. Fairly nonchalant Speech: Patient's speech is fluent Mood/Affect: Patient reports their mood is "not good" Affect is blunted Suicidality/Homicidality: Patient denies having any homicidal ideation intent or plan. Denies any suicidal ideations intent or plan Perceptions: Patient denies any visual hallucinations, he is endorsing auditory hallucinations claiming that he hears a staff veterinarian talking to him Though content/process: Patient is delusional, flight of ideas, rambling, illogical, improving mildly Memory and concentration: AOX3, grossly intact for the purposes of this session Judgment and insight: chronically poor IMPRESSIONS: Schizophrenia Alcohol use disorder Nicotine dependence PLAN: -Patient is admitted under voluntary status to [facility] for stabilization of psychiatric symptoms and safety. Currently on court order, expiring 09/30/24 -Medications : Patient on Prolixin D 50mg IM, q 10days, will give on 02/27/24, next dose will be due on 03/08, seroquel 25 mg po qhs for sleep/mood adjunct. melatonin 10mg qhs for sleep, -Ativan and Haldol PRN for agitation/aggression -thiamine, MVM for etoh use -NRT - nicotine patch -SW on board for discharge planning. Encourage patient to participate in groups to work on coping skills. likely discharge next week once patient improves psychiatrically and back to baseline
[2024-02-27] MEDS: fluPHENAZine DECANOATE 25 MG/ML 5ML MDV IM SCH (11:13)
[2024-02-28 09:35] LABS: Basophils % (A) 1 %; Eosinophils # (A) 0.1 k/uL (0-0.7); Eosinophils % (A) 3 %; HCT 46.9 % (39.0-53.0); HGB 15.4 gm/dL (13.0-17.5); Lymphocytes # (A) 1.1 k/uL (1.0-4.8); Lymphocytes % (A) 26 %; MCH 31.4 pg (25.0-35.0); MCHC 32.8 g/dL (31.0-37.0); MCV 95.7 fL (80.0-100.0); Mean Platelet Volume 8.1; Monocytes # (A) 0.5 k/uL (0-1.0); Monocytes % (A) 10 %; Neutrophils # (A) 2.4 k/uL (1.3-7.7); Neutrophils % (A) 56 %; Platelet Count 202 k/uL (150-450); RBC 4.91 m/uL (4.30-5.90); RDW 12.9 % (11.5-15.5); WBC 4.4 k/uL (3.8-10.6)
[2024-02-28 09:47] LABS: African American GFR (CKD) >90 (>60 ml/min/1.73 sqM); Anion Gap 8 mmol/L; Blood Urea Nitrogen 8 mg/dL (9-20); Calcium 9.6 mg/dL (8.4-10.2); Carbon Dioxide 28 mmol/L (22-30); Chloride 99 mmol/L (98-107); Glucose 109 mg/dL (74-99); Non-African American GFR(CKD) >90 (>60 ml/min/1.73 sqM); Potassium 4.2 mmol/L (3.5-5.1); Sodium 135 mmol/L (137-145)
--- NOTE | 2024-02-28 13:39 | P.PN ---
Progress Note - Text Interval history: Patient was seen in his room and was directable and agreeable to speak with customs entry writer. denies paranoia and irritability. Requesting discharge. At this time patient denies any suicidal or homicidal ideations intent or plan. Denies any Auditory or visual hallucinations. Mental status exam: General Appearance: [Patient appears to be older thanstated age is alert, directable, and cooperative.] Behavior: [No agitated behavior. Patient is calm and directable] Speech: Patient's speech is fluent and nonpressured. Mood/Affect: Mood is improving mildly, affect is congruent and constricted. Suicidality/Homicidality: Patient denies having any suicidal or homicidal ideation intent or plan. Perceptions: Patient denies any auditory or visual hallucinations. Though content/process: [There is no evidence of any delusional thought content and thought process is linear and goal-directed.] Memory and concentration: AOX3, grossly intact for the purposes of this session Judgment and insight: poor Assessment/Plan: Continue with current diagnosis. Patient continues to meet criteria for inpatient psychiatric admission for symptom stabilization and safety.[Patient will be maintained on current psychotropic medication regimen.] Monitor for medication compliance and for any psychotropic medication side effe cts. Will continue to monitor ongoing response to treatment. Encouraged participation in milieu.
--- NOTE | 2024-02-29 10:02 | P.PN ---
Progress Note - Text Interval history: Patient was seen [wandering the hallways] and was directable and agreeable to speak with fiction and nonfiction writer prose. states that he is doing "pretty good" and denies paranoia or irritability. At this time patient denies any suicidal or homicidal ideations intent or plan. Denies any Auditory or visual hallucinations. Patient denies any side effects from the medications and has been compliant with meds. Mental status exam: General Appearance: [Patient appears to be stated age is alert, directable, and cooperative.] Behavior: [No agitated behavior. Patient is calm and directable] Speech: Patient's speech is fluent and nonpressured. Mood/Affect: Mood is improving mildly, affect is congruent and constricted. Suicidality/Homicidality: Patient denies having any suicidal or homicidal ideation intent or plan. Perceptions: Patient denies any auditory or visual hallucinations. Though content/process: [There is no evidence of any delusional thought content and thought process is linear and goal-directed.] Memory and concentration: AOX3, grossly intact for the purposes of this session Judgment and insight: improving mildly Assessment/Plan: Continue with current diagnosis. Patient continues to meet criteria for inpatient psychiatric admission for symptom stabilization and safety.[Patient will be maintained on current psychotropic medication regimen.] Monitor for medication compliance and for any psychotropic medication side effects. Will continue to monitor ongoing response to treatment. Encouraged participation in milieu.
--- NOTE | 2024-03-01 11:11 | P.PN ---
Progress Note - Text Progress Note Date: 03/01/24 Interval History: Patient was seen wandering the hallways and was directable and agreeable to [place] scott with hand sign writer in the office. Patient presented today noting that his voices have changed to horns, Rodriguez's, and whistles. He notes that he no longer hears his harvest supervisor or anybody else. Denies any visual hallucinations. He denies any ideas of reference or paranoia. He notes that he is not depressed or anxious. He notes that he is not sleeping well but notes that his energy is fair. He notes appetite is poor but concentration is good. Continues to crave alcohol and plans as soon as he gets discharged to start drinking 5th. Declined any in or outpatient services for alcohol and notes that alcohol is a medicine for him. At this time patient denies any suicidal or homical ideations, intent or plan. Patient denies any side effects from the medications and has been compliant with meds. Collateral: Spoke with the patient's brother Bert with the patient's permission . He notes that recently after he saw him on Friday night he was still speaking of working on the [employer]. He notes the patient has lots of experience of being hospitalized and knows how to get out. He does not voice any concerns of the patient harming himself or others and denied any access to guns. Mental Status Exam: General Appearance: Patient appears to be stated age is alert, directable, and cooperative. Behavior: Patient is calmly seated without any agitated behavior. Speech: Patient's speech is fluent and nonpressured. Mood/Affect: Mood is improving mildly, affect is congruent and constricted. Suicidality/Homicidality: Patient denies having any suicidal or homicidal ideation intent or plan. Perceptions: Patient denies any visual hallucinations. The patient notes that he is having auditory hallucinations of bells, whistles, and horns Though content/process: There is no evidence of any delusional thought content and thought process is linear and goal-directed. Memory and concentration: AOX3, grossly intact for the purposes of this session Judgment and insight: Improving mildly Assessment; Patient is denying any ongoing auditory hallucinations consistent since his admission and denies hearing his harvest supervisor's voice. Patient is also determined to get back to drinking. Current presentation warrants 1 more day of admission to get the patient's final decanoate shot. IMPRESSIONS: Schizophrenia Alcohol use disorder Nicotine dependence PLAN: -Patient is admitted under voluntary status to [facility] for stabilization of psychiatric symptoms and safety. Currently on court order, expiring 09/30/24 -Medications : Patient on Prolixin D 50mg IM, due q 2 weeks, last shot 02/27/2024 next due 03/12/2024 Seroquel 50mg po qhs for sleep, -Ativan and Haldol PRN for agitation/aggression -Started thiamine, MVM for etoh use -CIWA protocol with Ativan PRN for ETOH withdrawal -Patient was counselled on substance abuse and desired to cut back on use -Patient was informed of the risks, benefits and side effects of the medication and patient verbally consented to taking the medications. -Internal Medicine consult to perform medical evaluation and physical. -NRT - nicotine patch -SW on board for discharge planning. Encourage patient to participate in groups to work on coping skills.
[2024-03-02 07:02] VITALS: BP 145/95; PULSE 72
[2024-03-02] MEDS ORDERED: fluPHENAZine DECANOATE 25 MG/ML 5ML MDV IM SCH (09:00)
--- NOTE | 2024-03-02 11:41 | P.DS ---
Providers Date of admission: 02/22/24 17:40 Expected date of discharge: 03/02/24 Attending physician: Maury Yuen MD Admission HPI: Admission note was completed by Dr. Yuen "Patient presented to the hospital initially on 1016. He was admitted medically and blog writer seeing him on the medical floor. As per consult note, "Patient has a chronic history of schizophrenia, history of alcohol use disorder as well. He has had similar hospitalizations several times in the past. Patient was brought into the hospital on 02/18 for nausea vomiting and abdominal pain according to ER report. Patient apparently was also endorsing suicidal ideations and depression. He has had several previous psychiatric hospitalizations and medical admissions. He had a sitter by him side today. He was agreeable to speak to blog writer today. He was rambling, illogical, nonsensical. He spoke about having several lawsuits with "[employer]" talking about insurance claims and upwards of $[phone]. He states that people are after him because he is suing them for that much money. He had several other loosely formed delusions. He was mildly irritable at times, rambling. He also spoke about potentially being poisoned by his food. He claims that he is having auditory hallucinations hearing his hoop punch and coiler operator talk to him. Denying any visual hallucinations. Denying any suicidal homicidal ideations intent or plan. Claims that his sleep and appetite have been on and off. He states that he is not using any drugs at this time". Upon today's assessment, the patient was seen at the bedside. Patient was sleeping, however was easily aroused, after saying his name. He states that he is tired even though he slept well last night. He states that he is not having any withdrawal symptoms, and asked about discharge. When asked if he is having any auditory hallucinations, he stated that he only hears Judge Longoria's voice saying unspeakable words to him. The patient is denying visual hallucinations denying suicidal ideations and homicidal ideations. The patient has been compliant with meds, and denies any side effects. He is secluding to his room. Netsuite Consultant encouraged patient to go to groups and participate." Hospital course: Upon admission to the unit patient was directable and agreeable to commence treatment and signed adult voluntary form. Patient got along well with other patients on the unit and followed unit protocol. Patient was compliant with the medications and denied any side effects throughout hospital course. Patient was started on Prolixin decanoate 50 mg given on 02/27/24 as well as Seroquel at night to help with sleep. Patient spoke of his stressors and engaged in therapy both group and individual. Patient was also seen by medical team for history and physical exam. Throughout the course of the hospitalization patient gradually improved with regards to mood, anxiety, sleep and returned back to their baseline level of functioning became more future oriented with improved insight and judgment. On the day of discharge patient denied any suicidal or homicidal ideations intent or plan denied any auditory or visual hallucinations. Patient endorsed wanting to live for their health and family. The patient denied any access to guns or weapons. Patient denied any paranoia and did not endorse any delusions. Patient does have a significant history of substance abuse and was counseled on abstaining from all substances including alcohol and marijuana. Patient was offered however declined inpatient substance-abuse rehab. Patient was also counseled on the medications and need for regular compliance and was encouraged to follow-up with their outpatient appointment for mental health and also for primary care. Prior to discharge a family meeting will be arranged by protective services social worker to answer any questions and ensure safety upon discharge incuding making sure that guns/weapons are either removed from the home or locked away. Day of discharge patient denied any suicidal or homicidal ideations. He did endorse auditory hallucinations with negative comments. Pat ient denied any visual or paranoid psychotic symptoms. Patient notes that his depression 0/10 and his anxiety 2/10 with 10 being worst. Patient notes that his sleep was fair as well as his energy. He notes that his appetite and concentration are normal. When asking the patient what he would do upon being released he noted return drinking. Mental status exam: General Appearance: Patient appears to be older stated age is alert, pleasant, and cooperative. Patient is in no acute distress and has improved hygiene and grooming Behavior: Patient is calmly seated with mild agitated behavior. Speech: Patient's speech is fluent and nonpressured. Mood/Affect: Patient reports their mood is "better good", affect is congruent and euthymic. Suicidality/Homicidality: Patient denies having any suicidal or homicidal ideation intent or plan. Perceptions: Patient endorsed auditory hallucinations but did not endorse any visual hallucinations. Though content/process: There is evidence of any delusional thought but are baseline content and thought process is linear and goal-directed. More future oriented Memory and concentration: AOX3, grossly intact for the purposes of this session. Judgment and insight: Chronically poor, however has improved with guarded prognosis Impression: Schizophrenia Alcohol use disorder severe Nicotine dependence Plan: -Continue with discharge today as patient has improved and stabilized psychiatrically and is not currently an imminent threat to themself and/or others. Patient will remain at chronically elevated risk for harm to self and/or others due to their impulsivity and substance abuse. -Continue medications: Prolixin decanoate 50 mg IM every 2 weeks last injection 02/27/2024 next injection 03/16/2024 Seroquel 25 mg take 1 tablet at night as needed for insomnia -Patient was counseled on the need for medication compliance and appropriate follow-up at mental health and also primary care for medical issues. Patient verbalized understanding and agreed. -Social work to help coordinate patients discharge today arrange for and conduct family meeting to ensure safety upon discharge and answer any questions/concerns. also to ensure safe home environment that guns/weapons are either removed from the home or locked away. Social work also to arrange for patients follow up appointments with [facility] for psychiatric care along with follow up with primary care provider. -Patient counseled on abstaining from recreational drugs and marijuana and alcohol. Was informed/educated on the adverse effects on their physical and mental health. Patient verbally agreed and understood. Patient was offered substance abuse treatment however declined at this time. -Patient was instructed to return to the hospital or seek immediate medical care if their psychiatric or medical symptoms do worsen or reoccur. INSERT DATA FORMATS Consults: 02/22/24 18:40 Consult Physician Routine Consulting Provider: [facility] Consult Reason/Comments: History and Physical Do you want consulting provider notified?: Yes Primary care physician: Stated None - Discharge Diagnosis(es) (1) Acute anxiety Current Visit: No Status: Acute Priority: Medium (2) Schizophrenia Current Visit: No Status: Chronic Priority: High (3) Alcohol abuse Current Visit: No Status: Chronic Priority: Medium Patient Condition at Discharge: Fair Plan - Discharge Summary Discharge Rx Participant: No New Discharge Prescriptions: New QUEtiapine [SEROquel] 25 mg PO HS 30 Days #30 tab fluPHENAZine decanoate [Prolixin Decanoate] 50 mg IM [id number] 14 Days #1 ml Continue Pantoprazole Sodium [Protonix] 40 mg PO DAILY #15 tab Cholecalciferol [Vitamin D3 (125 Mcg = 5000 Iu)] 125 mcg PO DAILY Loratadine [Claritin] 10 mg PO DAILY Propranolol [Inderal] 20 mg PO DAILY #30 tab Ondansetron Odt [Zofran ODT] 4 mg PO Q8HR PRN #10 tab PRN Reason: Nausea Tamsulosin [Flomax] 0.4 mg PO PC-SUPPER #0 cap Thiamine [Vitamin B-1] 100 mg PO DAILY tab Aspirin 81 mg PO DAILY 30 Days tab amLODIPine [Norvasc] 10 mg PO DAILY Discontinued fluPHENAZine decanoate [Prolixin Decanoate] 50 mg IM Q14D Acetaminophen Tab [Tylenol] 650 mg PO TID PRN PRN Reason: Fever And/ Or Pain QUEtiapine [SEROquel] 50 mg PO HS #30 tab Potassium Chloride ER [K-Dur 10] 10 meq PO DAILY Discharge Medication List Aspirin 81 mg PO DAILY 30 Days tab 01/29/21 [Rx] Pantoprazole Sodium [Protonix] 40 mg PO DAILY #15 tab 08/05/22 [Rx] Cholecalciferol [Vitamin D3 (125 Mcg = 5000 Iu)] 125 mcg PO DAILY 08/07/23 [History] Loratadine [Claritin] 10 mg PO DAILY 08/07/23 [History] amLODIPine [Norvasc] 10 mg PO DAILY 08/07/23 [History] Propranolol [Inderal] 20 mg PO DAILY #30 tab 08/27/23 [Rx] Ondansetron Odt [Zofran ODT] 4 mg PO Q8HR PRN #10 tab 02/16/24 [Rx] Tamsulosin [Flomax] 0.4 mg PO PC-SUPPER #0 cap 02/22/24 [Rx] Thiamine [Vitamin B-1] 100 mg PO DAILY tab 02/22/24 [Rx] QUEtiapine [SEROquel] 25 mg PO HS 30 Days #30 tab 03/02/24 [Rx] fluPHENAZine decanoate [Prolixin Decanoate] 50 mg IM [id number] 14 Days #1 ml 03/02/24 [Rx] Activity/Diet/Wound Care/Special Instructions: Avoid the use of street drugs and alcohol. Take all medications as prescribed. When you are in need of refills on your medications, please contact your medical provider and/or outpatient psychiatrist/provider to have this done. Please go to your scheduled outpatient appointment for aftercare treatment. If symptoms return or become worse, call the crisis line at and/or go to the nearest emergency room for evaluation. National Suicide Hotline 989 Discharge Disposition: HOME SELF-CARE
== END 2024-03-02 14:48 | disposition home or self-care (01) | DRG 885 ==
LOC: 3MHU 17:40
PROVIDERS: ADMIT Psychiatry & Neurology Psychiatry; ATTEND Psychiatry & Neurology Psychiatry
DX: F20.9 Schizophrenia, unspecified (principal); E87.1 Hypo-osmolality and hyponatremia; R45.851 Suicidal ideations; F10.20 Alcohol dependence, uncomplicated; F17.200 Nicotine dependence, unspecified, uncomplicated; E87.6 Hypokalemia; F32.A Depression, unspecified; F41.9 Anxiety disorder, unspecified; I10 Essential (primary) hypertension; K21.9 Gastro-esophageal reflux disease without esophagitis; K59.00 Constipation, unspecified; Z56.0 Unemployment, unspecified; Z79.82 Long term (current) use of aspirin; Z79.899 Other long term (current) drug therapy; Z86.0100 Personal history of colon polyps, unspecified
CPT/HCPCS: 80048; 80053; 80061; 82248; 83036; 84443; 85025

== ENCOUNTER 2024-03-09 13:26 | Emergency (ER) | payer MEDICARE, OTHER ==
[2024-03-09 13:31] VITALS: TEMP 98
[2024-03-09] MEDS: KETOROLAC 15 MG/ML 1 ML VIAL IM STA (15:20)
[2024-03-09] MEDS: ORPHENADRINE 30 MG/ML 2 ML VIAL IM STA (15:21)
[2024-03-09 16:19] LABS: Appearance,Urine Clear (Clear); Bilirubin,Urine 1+ (Negative); Blood,Urine Negative (Negative); Color,Urine Yellow; Glucose,Urine (UA) Negative (Negative); Hyaline Casts,Urine 3 /lpf (0-2); Leukocyte Esterase,Urine Negative (Negative); Mucus,Urine Rare /hpf; Nitrite,Urine Negative (Negative); PH, Urine 6.5 (5.0-8.0); Protein,Urine 1+ (Negative); RBC,Urine 1 /hpf (0-5); Specific Gravity,Urine 1.015 (1.001-1.035); WBC,Urine <1 /hpf (0-5)
--- NOTE | 2024-03-09 16:35 | ED ---
Male Urogenital HPI - General Chief complaint: Urogenital Stated complaint: vomiting Time Seen by Provider: 03/09/24 13:42 Source: patient, RN notes reviewed Mode of arrival: ambulatory Limitations: no limitations - History of Present Illness Initial comments: This is a 58-year-old male with history of schizophrenia and EtOH abuse presenting with urinary retention x 3 days. Patient states he was originally having urinary retention 2 weeks ago and was admitted last week due to urinary retention where he was provided a Cotton catheter. Patient states Cotton catheter was removed and was provided Flomax for suspected obstruction. Patient states he did not start Flomax until just recently after urinary retention persisted. Patient endorses significant polydipsia despite urinary retention. Patient endorses associated nausea and vomiting stating he is "vomiting urine". Patient denies fever, chills, back pain, constipation, diarrhea. Onset/Timin -: days(s) Location: abdomen - Related Data Home Medications Medication Instructions Recorded Confirmed Potassium Chloride 10 meq PO DAILY 03/09/24 03/09/24 Sodium Chloride Tab 1 gm PO BID 03/09/24 03/09/24 Tamsulosin [Flomax] 0.4 mg PO W/SUPPER 03/09/24 03/09/24 Previous Rx's Medication Instructions Recorded Propranolol [Inderal] 20 mg PO DAILY #30 tab 08/27/23 QUEtiapine [SEROquel] 25 mg PO HS 30 Days #30 tab 03/02/24 fluPHENAZine decanoate [Prolixin 50 mg IM [id number] 14 Days #1 ml 03/02/24 Decanoate] Allergies Allergy/AdvReac Type Severity Reaction Status Date / Time clozapine AdvReac Hypotension Verified 03/09/24 15:51 /Diarrhea divalproex sodium AdvReac Hyponatremi Verified 03/09/24 15:51 [From Depakote] a Review of Systems ROS Statement: Those systems with pertinent positive or pertinent negative responses have been documented in the HPI. ROS Other: All systems not noted in ROS Statement are negative. Past Medical History Past Medical History: GERD/Reflux, Hypertension, Vascular Disorder Additional Past Medical History / Comment(s): ETOH abuse, alcohol withdrawl with tremens, diverticular disease, benign colon polyp, varicose veins. History of Any Multi-Drug Resistant Organisms: None Reported Past Surgical History: No Surgical Hx Reported Additional Past Surgical History / Comment(s): Teeth extractions, colonoscopies. Past Anesthesia/Blood Transfusion Reactions: No Reported Reaction Additional Past Anesthesia/Blood Transfusion Reaction / Comment(s): Never had Past Psychological History: Anxiety, Depression, Schizophrenia Smoking Status: Never smoker Past Alcohol Use History: Heavy Past Drug Use History: None Reported - Past Family History Father Family Medical History: Myocardial Infarction ([place]) Additional Family Medical History / Comment(s): AT AGE 58 FROM [place] Mother Family Medical History: Deep Vein Thrombosis (DVT), Hypertension Additional Family Medical History / Comment(s): PRIMARY PULMONARY HYPERTENSION General Exam Limitations: no limitations General appearance: alert, in no apparent distress Head exam: Present: atraumatic, normocephalic, normal inspection Eye exam: Present: normal appearance, PERRL, EOMI. Absent: scleral icterus, conjunctival injection, periorbital swelling ENT exam: Present: normal exam, mucous membranes moist Neck exam: Present: normal inspection. Absent: tenderness, meningismus, lymphadenopathy Respiratory exam: Present: normal lung sounds bilaterally. Absent: respiratory distress, wheezes, rales, rhonchi, stridor Cardiovascular Exam: Present: regular rate, normal rhythm, normal heart sounds. Absent: systolic murmur, diastolic murmur, rubs, gallop, clicks GI/Abdominal exam: Present: soft, tenderness (Positive suprapubic tenderness without guarding), normal bowel sounds. Absent: distended, guarding, rebound, rigid Extremities exam: Present: normal inspection, full ROM, normal capillary refill. Absent: tenderness, pedal edema, joint swelling, calf tenderness Back exam: Present: normal inspection Neurological exam: Present: alert, oriented X3, CN II-XII intact Psychiatric exam: Present: normal affect, normal mood Skin exam: Present: warm, dry, intact, normal color. Absent: rash Course Vital Signs 03/09/24 03/09/24 13:27 17:37 Temperature 98.0 F Pulse Rate 117 H 94 Respiratory 18 16 Rate Blood Pressure 142/100 145/103 O2 Sat by Pulse 99 96 Oximetry Medical Decision Making - Medical Decision Making Was pt. sent in by a medical professional or institution (, PA, ICE CREAM TRUCK DRIVER, urgent care, hospital, or senior care...) When possible be specific @ -No Did you speak to anyone other than the patient for history (EMS, parent, family, police, friend...)? What history was obtained from this source @ -No Did you review nursing and triage notes (agree or disagree)? Why? @ -I reviewed and agree with nursing and triage notes Were old charts reviewed (outside hosp., previous admission, EMS record, old EKG, old radiological studies, urgent care reports/EKG's, senior care records)? Report findings @ -Yes reviewed charts from previous visit regarding urinary retention. Physicians were unable to definitively identify cause of urinary retention and patient was prescribed Flomax and advised follow-up with urology. Differential Diagnosis (chest pain, altered mental status, abdominal pain women, abdominal pain men, vaginal bleeding, weakness, fever, dyspnea, syncope, headache, dizziness, GI bleed, back pain, seizure, CVA, palpatations, mental health, musculoskeletal)? @ -Differential Abdominal Pain Men: Appendicitis, cholecystitis, diverticulosis, ischemic bowel, pancreatitis, hepatitis, UTI, gastroenteritis, AAA, incarcerated hernia, bowel obstruction, constipation, inflammatory bowel, hepatitis, peptic ulcer disease, splenic infarction, perforated viscus, testicular torsion, this is not meant to be an all-inclusive list EKG interpreted by me (3pts min.). @ -Not done X-rays interpreted by me (1pt min.). @ -None done CT interpreted by me (1pt min.). @ -None done U/S interpreted by me (1pt. min.). @ -None done What testing was considered but not performed or refused? (CT, X-rays, U/S, labs)? Why? @ -None What meds were considered but not given or refused? Why? @ -None Did you discuss the management of the patient with other professionals (professionals i.e. , PA, ICE CREAM TRUCK DRIVER, lab, RT, psych nurse, social professionals, warp yarn sorter, teacher, guest relations officer, housing case manager)? Give summary @ -No Was smoking cessation discussed for >3mins.? @ -No Was critical care preformed (if so, how long)? @ -No Were there social determinants of health that impacted care today? How? (Homelessness, low income, unemployed, alcoholism, drug addiction, transportation, low edu. Level, literacy, decrease access to med. care, longterm, rehab)? @ -Alcoholism Was there de-escalation of care discussed even if they declined (Discuss DNR or withdrawal of care, Hospice)? DNR status @ -No What co-morbidities impacted this encounter? (DM, HTN, Smoking, COPD, CAD, Cancer, CVA, ARF, Chemo, Hep., AIDS, mental health diagnosis, sleep apnea, morbid obesity)? @ -EtOH abuse, schizophrenia Was patient admitted / discharged? Hospital course, mention meds given and route, prescriptions, significant lab abnormalities, going to OR and other pertinent info. @ -Discharge. Bladder scan performed showing between 101 150 mL of urine and Cotton catheter successfully inserted with significant about 150 mL of slightly dark urine evacuated. Patient notes significant relief of abdominal pressure following procedure. UA revealed no UTI. Patient discharged with Cotton left in place until he can follow-up with urology. Undiagnosed new problem with uncertain prognosis? @ -No Drug Therapy requiring intensive monitoring for toxicity (Heparin, Nitro, Insulin, Cardizem)? @ -No Were any procedures done? @ -Cotton catheter inserted by RN Diagnosis/symptom? @ -Urinary retention Acute, or Chronic, or Acute on Chronic? @ -Acute Uncomplicated (without systemic symptoms) or Complicated (systemic symptoms)? @ -Uncomplicated Side effects of treatment? @ -No Exacerbation, Progression, or Severe Exacerbation? @ -No Poses a threat to life or bodily function? How? (Chest pain, [place], [place], pneumonia, PE, COPD, DKA, ARF, appy, cholecystitis, CVA, Diverticulitis, Homicidal, Suicidal, threat to staff... and all critical care pts) @ -No - Lab Data Lab Results 03/09/24 Range/Units 16:07 Urine Color Yellow Urine Appearance Clear (Clear) Urine pH 6.5 (5.0-8.0) Ur Specific [place] 1.015 (1.001-1.035) Urine Protein 1+ H (Negative) Urine Glucose (UA) Negative (Negative) Urine Ketones 3+ H (Negative) Urine Blood Negative (Negative) Urine Nitrite Negative (Negative) Urine Bilirubin 1+ H (Negative) Urine Urobilinogen 4.0 (<2.0) mg/dL Ur Leukocyte Esterase Negative (Negative) Urine RBC 1 (0-5) /hpf Urine WBC <1 (0-5) /hpf Hyaline Casts 3 H (0-2) /lpf Urine Mucus Rare H (None) /hpf Disposition Clinical Impression: Urinary retention Disposition: HOME SELF-CARE Condition: Good Instructions (If sedation given, give patient instructions): Urinary Retention in Men (ED) Additional Instructions: Advised follow-up with urology within the next month for further instruction and evaluation. Vies return to ER for removal of Cotton catheter in 1 month if unable to obtain a urology appointment by them. Is patient prescribed a controlled substance at d/c from ED?: No Referrals: [facility] [Primary Care Provider] - 1-2 days Time of Disposition: 16:34
[2024-03-09 17:01] LABS: Ketones,Urine 3+ (Negative)
[2024-03-09 17:37] VITALS: BP 145/103; PULSE 94; RESP 16
== END 2024-03-09 17:52 | disposition home or self-care (01) ==
LOC: EC 13:26
DX: R33.9 Retention of urine, unspecified (principal); Z88.8 Allergy status to other drugs, medicaments and biological substances
CPT/HCPCS: 51702; 51798; 81001; 96372; 99284

== ENCOUNTER 2024-03-11 09:44 | Emergency (ER) | payer MEDICARE, OTHER ==
--- NOTE | 2024-03-11 10:26 | ED ---
Recheck HPI - General Chief Complaint: Recheck/Abnormal Lab/Rx Stated Complaint: catheter pain Time Seen by Provider: 03/11/24 10:01 Source: patient, RN notes reviewed Mode of arrival: ambulatory Limitations: no limitations - History of Present Illness Initial Comments: This is a 58-year-old male presenting to the emergency department for chief complaint of pain around his urinary catheter site. Patient states that he presented to the emergency department 3 days ago where urinary catheter was placed due to urinary retention. Patient states that he has been having pain at the catheter site and is concerned that the catheter has been slightly removed and is requesting that the catheter be removed. He denies abdominal pain, bloody urinary output, fevers, chills, flank pain. - Related Data Home Medications Medication Instructions Recorded Confirmed Potassium Chloride 10 meq PO DAILY 03/09/24 03/09/24 Sodium Chloride Tab 1 gm PO BID 03/09/24 03/09/24 Tamsulosin [Flomax] 0.4 mg PO W/SUPPER 03/09/24 03/09/24 Previous Rx's Medication Instructions Recorded Propranolol [Inderal] 20 mg PO DAILY #30 tab 08/27/23 QUEtiapine [SEROquel] 25 mg PO HS 30 Days #30 tab 03/02/24 fluPHENAZine decanoate [Prolixin 50 mg IM [id number] 14 Days #1 ml 03/02/24 Decanoate] Allergies Allergy/AdvReac Type Severity Reaction Status Date / Time clozapine AdvReac Hypotension Verified 03/11/24 10:07 /Diarrhea divalproex sodium AdvReac Hyponatremi Verified 03/11/24 10:07 [[facility] a Review of Systems ROS Statement: Those systems with pertinent positive or pertinent negative responses have been documented in the HPI. ROS Other: All systems not noted in ROS Statement are negative. Past Medical History Past Medical History: GERD/Reflux, Hypertension, Vascular Disorder Additional Past Medical History / Comment(s): ETOH abuse, alcohol withdrawl with tremens, diverticular disease, benign colon polyp, varicose veins. History of Any Multi-Drug Resistant Organisms: None Reported Past Surgical History: No Surgical Hx Reported Additional Past Surgical History / Comment(s): Teeth extractions, colonoscopies. Past Anesthesia/Blood Transfusion Reactions: No Reported Reaction Additional Past Anesthesia/Blood Transfusion Reaction / Comment(s): Never had Past Psychological History: Anxiety, Depression, Schizophrenia Smoking Status: Never smoker Past Alcohol Use History: Heavy Past Drug Use History: None Reported - Past Family History Father Family Medical History: Myocardial Infarction ([place]) Additional Family Medical History / Comment(s): AT AGE 58 FROM [place] Mother Family Medical History: Deep Vein Thrombosis (DVT), Hypertension Additional Family Medical History / Comment(s): PRIMARY PULMONARY HYPERTENSION General Exam Limitations: no limitations General appearance: alert, in no apparent distress Eye exam: Present: normal appearance, PERRL, EOMI. Absent: scleral icterus, conjunctival injection, periorbital swelling Neck exam: Present: normal inspection. Absent: tenderness, meningismus, lymphadenopathy Respiratory exam: Present: normal lung sounds bilaterally. Absent: respiratory distress, wheezes, rales, rhonchi, stridor Cardiovascular Exam: Present: regular rate, normal rhythm, normal heart sounds. Absent: systolic murmur, diastolic murmur, rubs, gallop, clicks GI/Abdominal exam: Present: soft, normal bowel sounds. Absent: distended, tenderness, guarding, rebound, rigid Extremities exam: Present: normal inspection, full ROM, normal capillary refill. Absent: tenderness, pedal edema, joint swelling, calf tenderness Back exam: Present: normal inspection Neurological exam: Present: alert, oriented X3, CN II-XII intact Skin exam: Present: warm, dry, intact, normal color. Absent: rash Course Vital Signs 03/11/24 03/11/24 10:05 10:39 Temperature 98.1 F 98.2 F Pulse Rate 101 H 96 Respiratory 20 18 Rate Blood Pressure 132/86 126/90 O2 Sat by Pulse 97 97 Oximetry Medical Decision Making - Medical Decision Making Was pt. sent in by a medical professional or institution (, PA, SALESPERSON WIGS, urgent care, hospital, or [facility]...) When possible be specific @ -No Did you speak to anyone other than the patient for history (EMS, parent, family, police, friend...)? What history was obtained from this source @ -No Did you review nursing and triage notes (agree or disagree)? Why? @ -I reviewed and agree with nursing and triage notes Were old charts reviewed (outside hosp., previous admission, EMS record, old EKG, old radiological studies, urgent care reports/EKG's, [facility] records)? Report findings @ -Reviewed previous emergency department visit note where patient had urinary catheter placed and urinalysis completed with no signs of infection. Differential Diagnosis (chest pain, altered mental status, abdominal pain women, abdominal pain men, vaginal bleeding, weakness, fever, dyspnea, syncope, headache, dizziness, GI bleed, back pain, seizure, CVA, palpatations, mental health, musculoskeletal)? @ -Differential Abdominal Pain Men: Appendicitis, cholecystitis, diverticulosis, ischemic bowel, pancreatitis, hepatitis, UTI, gastroenteritis, AAA, incarcerated hernia, bowel obstruction, constipation, inflammatory bowel, hepatitis, peptic ulcer disease, splenic infarction, perforated viscus, testicular torsion, this is not meant to be an all-inclusive list EKG interpreted by me (3pts min.). @ -None X-rays interpreted by me (1pt min.). @ -None done CT interpreted by me (1pt min.). @ -None done U/S interpreted by me (1pt. min.). @ -None done What testing was considered but not performed or refused? (CT, X-rays, U/S, labs)? Why? @ -None What meds were considered but not given or refused? Why? @ -None Did you discuss the management of the patient with other professionals ( professionals i.e. , PA, SALESPERSON WIGS, lab, RT, psych nurse, secondary social studies teacher, it communications specialist, teacher, police liaison officer, case planner)? Give summary @ -No Was smoking cessation discussed for >3mins.? @ -No Was critical care preformed (if so, how long)? @ -No Were there social determinants of health that impacted care today? How? (Homelessness, low income, unemployed, alcoholism, drug addiction, transportation, low edu. Level, literacy, decrease access to med. care, halfway, rehab)? @ -No Was there de-escalation of care discussed even if they declined (Discuss DNR or withdrawal of care, Hospice)? DNR status @ -No What co-morbidities impacted this encounter? (DM, HTN, Smoking, COPD, CAD, Cancer, CVA, ARF, Chemo, Hep., AIDS, mental health diagnosis, sleep apnea, morbid obesity)? @ -None Was patient admitted / discharged? Hospital course, mention meds given and route, prescriptions, significant lab abnormalities, going to OR and other pertinent info. @ -Discharge. 58-year-old male with urinary catheter pain. Patient has persisted that he would like his urinary catheter removed. Discussed with patient at bedside the risks of removing catheter however patient refuses to keep catheter in place and is requesting it be removed. Recommend that patient contact urology to schedule sooner follow-up appointment for further evaluation of urinary retention. Discussion with patient to return the emergency depar tment if symptoms urinary retention arise again. Patient's urinalysis remarkable for red blood cells with moderate leukocyte esterase not remarkable for infection. Case discussed with my attending Dr. Ziegler Undiagnosed new problem with uncertain prognosis? @ -No Drug Therapy requiring intensive monitoring for toxicity (Heparin, Nitro, Insulin, Cardizem)? @ -No Were any procedures done? @ -No Diagnosis/symptom? @ -Urinary catheter malfunction Acute, or Chronic, or Acute on Chronic? @ -Acute Uncomplicated (without systemic symptoms) or Complicated (systemic symptoms)? @ -Uncomplicated Side effects of treatment? @ -No Exacerbation, Progression, or Severe Exacerbation? @ -No Poses a threat to life or bodily function? How? (Chest pain, [place], [place], pneumonia, PE, COPD, DKA, ARF, appy, cholecystitis, CVA, Diverticulitis, Homicidal, Suicidal, threat to staff... and all critical care pts) @ -No - Lab Data Lab Results 03/11/24 Range/Units 10:27 Urine Color Colorless Urine Appearance Clear (Clear) Urine pH 6.5 (5.0-8.0) Ur Specific [place] 1.005 (1.001-1.035) Urine Protein 1+ H (Negative) Urine Glucose (UA) Negative (Negative) Urine Ketones Negative (Negative) Urine Blood Large H (Negative) Urine Nitrite Negative (Negative) Urine Bilirubin Negative (Negative) Urine Urobilinogen <2.0 (<2.0) mg/dL Ur Leukocyte Esterase Moderate H (Negative) Urine RBC 69 H (0-5) /hpf Urine WBC 7 H (0-5) /hpf Urine Bacteria Rare H (None) /hpf Disposition Clinical Impression: Complication associated with urinary catheter Disposition: HOME SELF-CARE Condition: Stable Instructions (If sedation given, give patient instructions): Urinary Retention in Men (ED) Additional Instructions: Please return to the Emergency Department if symptoms worsen or any other concerns. Recommend that you contact urology to schedule follow-up appointment within the next week. Is patient prescribed a controlled substance at d/c from ED?: No Referrals: [facility] [Primary Care Provider] - 1-2 days Time of Disposition: 10:35
[2024-03-11 10:41] VITALS: BP 126/90; PULSE 96; RESP 18; TEMP 98.2
[2024-03-11 10:58] LABS: Appearance,Urine Clear (Clear); Bacteria,Urine Rare /hpf; Bilirubin,Urine Negative (Negative); Blood,Urine Large (Negative); Color,Urine Colorless; Glucose,Urine (UA) Negative (Negative); Ketones,Urine Negative (Negative); Leukocyte Esterase,Urine Moderate (Negative); Nitrite,Urine Negative (Negative); PH, Urine 6.5 (5.0-8.0); Protein,Urine 1+ (Negative); RBC,Urine 69 /hpf (0-5); Specific Gravity,Urine 1.005 (1.001-1.035); Urobilinogen,Urine <2.0 mg/dL (<2.0); WBC,Urine 7 /hpf (0-5)
== END 2024-03-11 10:56 | disposition home or self-care (01) ==
LOC: EC 09:44
DX: T83.098A Other mechanical complication of other urinary catheter, initial encounter (principal); Z88.8 Allergy status to other drugs, medicaments and biological substances
CPT/HCPCS: 81001; 99283

== ENCOUNTER → 2024-06-25 | Day surgery (SDC) | payer MEDICARE, OTHER ==
[2024-06-24 13:10] VITALS: BMI 29.0
[~2024-06-25] MED LIST changes: -LACTATED RINGERS 1,000 ML IV SCH; -LIDOCAINE 1% 20 ML VIAL (10MG/ML) FOR IV START INTRADERMA PRN; +LIDOCAINE 1% INJ 10MG/ML (20 ML MDV) ONE; +PROPOFOL 10 MG/ML 20 ML VIAL IV ONE
[2024-06-25 14:18] VITALS: TEMP 98.6
[2024-06-25] MEDS: LACTATED RINGERS 1,000 ML IV SCH (14:28)
[2024-06-25] MEDS: IV FLUID CONTINUATION 1,000 ML IV ONE (14:28)
--- NOTE | 2024-06-25 15:15 | P.PCN ---
Date of Procedure: 06/25/24 Procedure(s) Performed: Brief history: Patient is a pleasant 58-year-old white male scheduled for an elective upper endoscopy as well as colonoscopy as a part of evaluation of longstanding history of GERD and screening for history of colon polyps. Last colonoscopy was in [address] Funk and was noted to have a large rectal polyp that was revealed adenoma. He had a repeat flexible sigmoidoscopy in 3 months and complete polypectomy was performed. Procedure performed: Esophagogastroduodenoscopy Colonoscopy Preoperative diagnosis: Longstanding history of GERD Screening for history of colon polyps Anesthesia: MAC Procedure: After informed consent was obtained from the patient was brought into the endoscopy unit and IV sedation was administered by anesthesia under continuous monitoring. Initially upper endoscopy was done. The Olympus GF 160 video endoscope was inserted inserted into the mouth and esophagus intubated without any difficulty and was gradually advanced into the stomach and duodenum and carefully examined. The bulb and second part of the duodenum appeared normal. The scope was then withdrawn into the stomach adequately insufflated with air and upon careful examination the antrum and body, cardia and fundus had diffuse gastritis and biopsies were done from this area. The scope was then withdrawn into the esophagus. Small hiatal hernia noted. The GE junction was located at 38 cm to the incisors. There was a long segment of Gutierrez's esophagus extending from 30 to 40 cm from incisors and biopsies were done from this area. There were linear erosions and ulcerations in the distal esophagus consistent with LA grade D reflux esophagitis. Rest of the esophagus appeared normal. Patient tolerated the procedure well. At this time the patient continued to remain sedation. Initial digital rectal examination was normal. Olympus CF 160 video colonoscope was then inserted into the rectum and gradually advanced to the cecum without any difficulty. Careful examination was performed as the scope was gradually being withdrawn. The prep was excellent. The cecum, ascending colon appeared normal. The transverse colon there was a 1 cm polyp removed by snare polypectomy. Rest of the transverse colon, descending colon, sigmoid colon appeared normal. Proximal rectum at 11 cm from anal verge there was a 3-4 cm broad-based rounded polypoid lesion and multiple biopsies were done from this area to rule out malignancy.. The distal rectum appeared normal. Retroflexion was performed in the rectum and no lesions were noted. Patient tolerated the procedure well. Impression: 1. Upper endoscopy revealed small hiatal hernia, Gutierrez's esophagus, linear erosions and ulcerations in the distal esophagus consistent with LA grade D reflux esophagitis and diffuse gastritis 2. Colonoscopy revealed: a) 1 centimeter transverse colon polyp status post snare polypectomy b) 3 to 4 cm round polypoid lesion in the proximal rectum at 11 cm from the anal verge status post multiple biopsies to rule out malignancy. Recommendations: Findings of this examination were discussed with the patient as well as his family. He was advised to follow-up with the biopsy results. He will be seen in the office in 2 to 3 weeks. Based on the biopsy results we will decide if he needs to have a sigmoidoscopy with polypectomy versus surgical evaluation
[2024-06-25 15:23] VITALS: RESP 16
[2024-06-25 15:39] VITALS: BP 142/85; PULSE 90
== END ==
LOC: ORWHC2ENDO 13:20
PROVIDERS: ATTEND Internal Medicine Gastroenterology
DX: C20 Malignant neoplasm of rectum (principal); K22.70 Barrett's esophagus without dysplasia; K29.50 Unspecified chronic gastritis without bleeding; K21.00 Gastro-esophageal reflux disease with esophagitis, without bleeding; K44.9 Diaphragmatic hernia without obstruction or gangrene; D12.3 Benign neoplasm of transverse colon; Z86.0101 Personal history of adenomatous and serrated colon polyps
CPT/HCPCS: 88305; 45380; 45385; 43239; J2003; J2704; 88341

== ENCOUNTER 2024-07-15 15:59 | Emergency (ER) | payer MEDICARE, OTHER ==
[2024-07-15 16:14] VITALS: RESP 18
--- NOTE | 2024-07-15 17:48 | ED ---
URI HPI - General Chief Complaint: Upper Respiratory Infection Stated Complaint: flu like symptoms Time Seen by Provider: 07/15/24 16:12 Source: patient, RN notes reviewed Mode of arrival: ambulatory Limitations: no limitations - History of Present Illness Initial Comments: This is a 58-year-old male with history of prostate CA and EtOH abuse presenting with for sick symptoms x 3 weeks. Patient states symptoms started shortly following his colonoscopy when he was diagnosed with rectal cancer. Patient states he has yet to undergo treatment, just completing an appointment with Dr. Hyde.. Patient also saw his PCP, Dr. Bass, earlier today who diagnosed him with influenza A before sending him to ER for IV fluids and possible IV antibiotics. Patient endorses cough, congestion and vomiting. Endorses use of Mucinex DM and Robitussin with minimal relief. Denies fever, chills, hemoptysis, chest pain, dyspnea/SOB, abdominal pain, nausea, diarrhea. MD Complaint: cough, nasal congestion Onset/Timin -: week(s) Associated Symptoms: nasal congestion, cough, vomiting Treatments Prior to Arrival: "cold medicine" - Related Data Home Medications Medication Instructions Recorded Confirmed Potassium Chloride 20 meq PO DAILY 03/09/24 06/25/24 Sodium Chloride Tab 1 gm PO BID 03/09/24 06/25/24 Tamsulosin [Flomax] 0.4 mg PO W/SUPPER 03/09/24 06/25/24 Aspirin 325 mg PO DAILY 06/24/24 06/25/24 Pantoprazole [Protonix] 40 mg PO DAILY 06/24/24 06/25/24 Propranolol [Inderal] 60 mg PO BID 06/24/24 06/25/24 Previous Rx's Medication Instructions Recorded QUEtiapine [SEROquel] 25 mg PO HS 30 Days #30 tab 03/02/24 fluPHENAZine decanoate [Prolixin 50 mg IM [id number] 14 Days #1 ml 03/02/24 Decanoate] Albuterol Inhaler [Ventolin Hfa 1 - 2 puff INHALATION Q6H PRN #1 07/15/24 Inhaler] each Allergies Allergy/AdvReac Type Severity Reaction Status Date / Time clozapine AdvReac Hypotension Verified 06/25/24 14:08 /Diarrhea divalproex sodium AdvReac Hyponatremi Verified 06/25/24 14:08 [From Depakote] a propranolol AdvReac Chest Pain Verified 07/15/24 16:14 Review of Systems ROS Statement: Those systems with pertinent positive or pertinent negative responses have been documented in the HPI. ROS Other: All systems not noted in ROS Statement are negative. Past Medical History Past Medical History: CVA/TIA, GERD/Reflux, Hypertension, Vascular Disorder Additional Past Medical History / Comment(s): ETOH abuse, alcohol withdrawl with tremens, diverticular disease, benign colon polyp, varicose veins. "Mini stroke." "I had it 22 years ago.""I had numbness to one side of body."-no residual affect. History of Any Multi-Drug Resistant Organisms: None Reported Past Surgical History: No Surgical Hx Reported Additional Past Surgical History / Comment(s): Teeth extractions, colonoscopies. Past Anesthesia/Blood Transfusion Reactions: No Reported Reaction Additional Past Anesthesia/Blood Transfusion Reaction / Comment(s): Never had Past Psychological History: Anxiety, Depression, Schizophrenia Smoking Status: Never smoker Past Alcohol Use History: Abuse, Daily Past Drug Use History: None Reported - Past Family History Father Family Medical History: Myocardial Infarction (ND) Additional Family Medical History / Comment(s): AT AGE 58 FROM [place] Mother Family Medical History: Deep Vein Thrombosis (DVT), Hypertension Additional Family Medical History / Comment(s): PRIMARY PULMONARY HYPERTENSION General Exam Limitations: no limitations General appearance: alert, in no apparent distress Head exam: Present: atraumatic, normocephalic, normal inspection Eye exam: Present: normal appearance, PERRL, EOMI. Absent: scleral icterus, conjunctival injection, periorbital swelling ENT exam: Present: mucous membranes moist, TM's normal bilaterally, other (Postnasal drip noted without erythema) Neck exam: Present: normal inspection. Absent: tenderness, meningismus, lymphadenopathy Respiratory exam: Present: normal lung sounds bilaterally, wheezes, rhonchi, decreased breath sounds, prolonged expiratory. Absent: respiratory distress, rales, stridor, accessory muscle use Cardiovascular Exam: Present: regular rate, normal rhythm, normal heart sounds. Absent: systolic murmur, diastolic murmur, rubs, gallop, clicks GI/Abdominal exam: Present: soft, normal bowel sounds. Absent: distended, tenderness, guarding, rebound, rigid Extremities exam: Present: normal inspection, full ROM, normal capillary refill. Absent: tenderness, pedal edema, joint swelling, calf tenderness Back exam: Present: normal inspection Neurological exam: Present: alert, oriented X3, CN II-XII intact Psychiatric exam: Present: normal affect, normal mood Skin exam: Present: warm, dry, intact, normal color. Absent: rash Course Vital Signs 07/15/24 07/15/24 07/15/24 16:10 19:49 20:03 Temperature 97.9 F 99.0 F Pulse Rate 115 H 125 H 117 H Respiratory 18 18 18 Rate Blood Pressure 157/101 170/105 O2 Sat by Pulse 98 99 Oximetry 07/15/24 20:09 Temperature Pulse Rate 119 H Respiratory 18 Rate Blood Pressure O2 Sat by Pulse Oximetry Medical Decision Making - Medical Decision Making Was pt. sent in by a medical professional or institution (, PA, [employer], urgent care, hospital, or shelter...) When possible be specific @ -PCP, Dr. Bass Did you speak to anyone other than the patient for history (EMS, parent, family, police, friend...)? What history was obtained from this source @ - provided portion of HPI Did you review nursing and triage notes (agree or disagree)? Why? @ -I reviewed and agree with nursing and triage notes Were old charts reviewed (outside hosp., previous admission, EMS record, old EKG, old radiological studies, urgent care reports/EKG's, shelter records)? Report findings @ -No old charts were reviewed Differential Diagnosis (chest pain, altered mental status, abdominal pain women, abdominal pain men, vaginal bleeding, weakness, fever, dyspnea, syncope, headache, dizziness, GI bleed, back pain, seizure, CVA, palpatations, mental he alth, musculoskeletal)? @ -Differential Fever: Pneumonia, viral URI, endocarditis, myocarditis, pericarditis, otitis, sinusitis, peritonsillar Abscess, retropharyngeal Abscess, epiglottitis, peritonitis, appendicitis, Kanwal cystitis, diverticulitis, hepatitis, colitis, UTI, PID, TOA, pyelonephritis, prostatitis, epididymitis, meningitis, encephalitis, pulmonary embolism, CVA, thyroid storm, pancreatitis, adrenal crisis, cavernous sinus thrombosis, this is not meant to be an all-inclusive list. EKG interpreted by me (3pts min.). @ -Not done X-rays interpreted by me (1pt min.). @ -CXR shows no acute cardiopulmonary process CT interpreted by me (1pt min.). @ -None done U/S interpreted by me (1pt. min.). @ -None done What testing was considered but not performed or refused? (CT, X-rays, U/S, labs)? Why? @ -None What meds were considered but not given or refused? Why? @ -Patient offered admission for observation due to ongoing hypertension and tachycardia with repeat vital sign check. Patient declined, stating abnormal vital signs were due to hospital associated anxiety and that he would rather spend the night in his own home. Advised follow-up with primary care tomorrow for ongoing care/treatment. Did you discuss the management of the patient with other professionals (professionals i.e. , PA, [employer], lab, RT, psych nurse, social service agency director, immigration lawyer, teacher, account officer, test case developer)? Give summary @ -No Was smoking cessation discussed for >3mins.? @ -No Was critical care preformed (if so, how long)? @ -No Were there social determinants of health that impacted care today? How? (Homelessness, low income, unemployed, alcoholism, drug addiction, transportation, low edu. Level, literacy, decrease access to med. care, senior care, rehab)? @ -Alcoholism Was there de-escalation of care discussed even if they declined (Discuss DNR or withdrawal of care, Hospice)? DNR status @ -No What co-morbidities impacted this encounter? (DM, HTN, Smoking, COPD, CAD, Cancer, CVA, ARF, Chemo, Hep., AIDS, mental health diagnosis, sleep apnea, morbid obesity)? @ -Rectal cancer Was patient admitted / discharged? Hospital course, mention meds given and route, prescriptions, significant lab abnormalities, going to OR and other pertinent info. @ -Lab work shows anemia at 12.4, hyponatremia 129, hypokalemia 3.3 and hypomagnesia 1.5. UA and serum alcohol unremarkable bold. Cepheid test positive for influenza A. CXR shows no acute cardiopulmonary process. Patient initially provided IV normal saline and DuoNeb inhaler. Patient notes significant improvement in breathing following breathing treatment. Provided p.o. potassium chloride and magnesium oxide for electrolyte replacement. Given p.o. Tylenol for slightly elevated temperature. Patient shows no indication of bacterial infection at this time. Consideration made for observation admission due to ongoing hypertension and tachycardia following treatments. Patient declined admission, stating abnormal vital signs are possibly related to hospital associated anxiety, stating he would rather be at home tonight. Advised to cut back On alcohol use and increase oral rehydration with water, Gatorade/Pedialyte. Honey and warm fluids for cough and humidifier for congestion and cough. Advised follow-up with PCP tomorrow for ongoing management. Lab results provided upon request. Discussed patient with Dr. Ziegler. Undiagnosed new problem with uncertain prognosis? @ -No Drug Therapy requiring intensive monitoring for toxicity (Heparin, Nitro, Insulin, Cardizem)? @ -No Were any procedures done? @ -No Diagnosis/symptom? @ -Influenza A Acute, or Chronic, or Acute on Chronic? @ -Acute Uncomplicated (without systemic symptoms) or Complicated (systemic symptoms)? @ -Complicated Side effects of treatment? @ -No Exacerbation, Progression, or Severe Exacerbation? @ -No Poses a threat to life or bodily function? How? (Chest pain, [place], ND, pneumonia, PE, COPD, DKA, ARF, appy, cholecystitis, CVA, Diverticulitis, Homicidal, Suicidal, threat to staff... and all critical care pts) @ -No - Lab Data Result diagrams: 07/15/24 17:59 07/15/24 17:59 Lab Results 07/15/24 07/15/24 07/15/24 Range/Units 17:59 17:59 17:59 WBC 4.6 (3.8-10.6) k/uL RBC 4.22 L (4.30-5.90) m/uL Hgb 12.4 L (13.0-17.5) gm/dL Hct 38.0 L (39.0-53.0) % MCV 90.1 (80.0-100.0) fL MCH 29.4 (25.0-35.0) pg MCHC 32.6 (31.0-37.0) g/dL RDW 15.5 (11.5-15.5) % Plt Count 64 L (150-450) k/uL MPV 8.6 Neutrophils % 66 % Lymphocytes % 25 % Monocytes % 5 % Eosinophils % 0 % Basophils % 0 % Neutrophils # 3.1 (1.3-7.7) k/uL Lymphocytes # 1.1 (1.0-4.8) k/uL Monocytes # 0.2 (0-1.0) k/uL Eosinophils # 0.0 (0-0.7) k/uL Basophils # 0.0 (0-0.2) k/uL Manual Slide Review Performed Sodium (137-145) mmol/L Potassium (3.5-5.1) mmol/L Chloride (98-107) mmol/L Carbon Dioxide (22-30) mmol/L Anion Gap mmol/L BUN (9-20) mg/dL Creatinine (0.66-1.25) mg/dL Est GFR (CKD-EPI)AfAm (>60 ml/min/1.73 sqM) Est GFR (CKD-EPI)NonAf (>60 ml/min/1.73 sqM) Glucose (74-99) mg/dL Plasma Lactic Acid Edwin (0.7-2.0) mmol/L Calcium (8.4-10.2) mg/dL Phosphorus (2.5-4.5) mg/dL Magnesium (1.6-2.3) mg/dL Total Bilirubin (0.2-1.3) mg/dL AST (17-59) U/L ALT (4-49) U/L Alkaline Phosphatase (38-126) U/L Total Protein (6.3-8.2) g/dL Albumin (3.5-5.0) g/dL Urine Color Colorless Urine Appearance Clear (Clear) Urine pH 6.5 (5.0-8.0) Ur Specific [place] 1.002 (1.001-1.035) Urine Protein Negative (Negative) Urine Glucose (UA) Negative (Negative) Urine Ketones Negative (Negative) Urine Blood Negative (Negative) Urine Nitrite Negative (Negative) Urine Bilirubin Negative (Negative) Urine Urobilinogen <2.0 (<2.0) mg/dL Ur Leukocyte Esterase Negative (Negative) Serum Alcohol mg/dL Influenza Type A (PCR) Detected A (Not Detectd) Influenza Type B (PCR) Not Detected (Not Detectd) RSV (PCR) Not Detected (Not Detectd) SARS-CoV-2 (PCR) Not Detected (Not Detectd) 07/15/24 07/15/24 Range/Units 17:59 18:12 WBC (3.8-10.6) k/uL RBC (4.30-5.90) m/uL Hgb (13.0-17.5) gm/dL Hct (39.0-53.0) % MCV (80.0-100.0) fL MCH (25.0-35.0) pg MCHC (31.0-37.0) g/dL RDW (11.5-15.5) % Plt Count (150-450) k/uL MPV Neutrophils % % Lymphocytes % % Monocytes % % Eosinophils % % Basophils % % Neutrophils # (1.3-7.7) k/uL Lymphocytes # (1.0-4.8) k/uL Monocytes # (0-1.0) k/uL Eosinophils # (0-0.7) k/uL Basophils # (0-0.2) k/uL Manual Slide Review Sodium 129 L (137-145) mmol/L Potassium 3.3 L (3.5-5.1) mmol/L Chloride 93 L (98-107) mmol/L Carbon Dioxide 25 (22-30) mmol/L Anion Gap 11 mmol/L BUN 3 L (9-20) mg/dL Creatinine 0.50 L (0.66-1.25) mg/dL Est GFR (CKD-EPI)AfAm >90 (>60 ml/min/1.73 sqM) Est GFR (CKD-EPI)NonAf >90 (>60 ml/min/1.73 sqM) Glucose 103 H (74-99) mg/dL Plasma Lactic Acid Edwin 1.2 (0.7-2.0) mmol/L Calcium 8.8 (8.4-10.2) mg/dL Phosphorus 2.7 (2.5-4.5) mg/dL Magnesium 1.5 L (1.6-2.3) mg/dL Total Bilirubin 1.7 H (0.2-1.3) mg/dL AST 34 (17-59) U/L ALT 13 (4-49) U/L Alkaline Phosphatase 107 (38-126) U/L Total Protein 7.6 (6.3-8.2) g/dL Albumin 4.0 (3.5-5.0) g/dL Urine Color Urine Appearance (Clear) Urine pH (5.0-8.0) Ur Specific [place] (1.001-1.035) Urine Protein (Negative) Urine Glucose (UA) (Negative) Urine Ketones (Negative) Urine Blood (Negative) Urine Nitrite (Negative) Urine Bilirubin (Negative) Urine Urobilinogen (<2.0) mg/dL Ur Leukocyte Esterase (Negative) Serum Alcohol <10 mg/dL Influenza Type A (PCR) (Not Detectd) Influenza Type B (PCR) (Not Detectd) RSV (PCR) (Not Detectd) SARS-CoV-2 (PCR) (Not Detectd) Disposition Clinical Impression: Influenza A, Hypertension, Tachycardia Disposition: HOME SELF-CARE Condition: Good Instructions (If sedation given, give patient instructions): Influenza (ED) Additional Instructions: Follow-up with PCP in the next 24-48 hours Prescriptions: Albuterol Inhaler [Ventolin Hfa Inhaler] 1 - 2 puff INHALATION Q6H PRN #1 each PRN Reason: Shortness Of Breath Is patient prescribed a controlled substance at d/c from ED?: No Referrals: Sharron Bass MD [Primary Care Provider] - 1-2 days Time of Disposition: 19:36
[2024-07-15] MEDS: SODIUM CHLORIDE 0.9% 1,000 ML IV STA (18:13)
[2024-07-15 18:22] LABS: Basophils % (A) 0 %; Eosinophils % (A) 0 %; HGB 12.4 gm/dL (13.0-17.5); Lymphocytes # (A) 1.1 k/uL (1.0-4.8); Lymphocytes % (A) 25 %; MCH 29.4 pg (25.0-35.0); MCHC 32.6 g/dL (31.0-37.0); MCV 90.1 fL (80.0-100.0); Mean Platelet Volume 8.6; Monocytes # (A) 0.2 k/uL (0-1.0); Monocytes % (A) 5 %; Neutrophils # (A) 3.1 k/uL (1.3-7.7); Neutrophils % (A) 66 %; RBC 4.22 m/uL (4.30-5.90); RDW 15.5 % (11.5-15.5); WBC 4.6 k/uL (3.8-10.6)
[2024-07-15 18:28] LABS: Appearance,Urine Clear (Clear); Bilirubin,Urine Negative (Negative); Blood,Urine Negative (Negative); Color,Urine Colorless; Glucose,Urine (UA) Negative (Negative); Ketones,Urine Negative (Negative); Leukocyte Esterase,Urine Negative (Negative); Nitrite,Urine Negative (Negative); PH, Urine 6.5 (5.0-8.0); Protein,Urine Negative (Negative); Specific Gravity,Urine 1.002 (1.001-1.035); Urobilinogen,Urine <2.0 mg/dL (<2.0)
--- NOTE | 2024-07-15 18:30 | XR ---
EXAMINATION TYPE: XR chest 2V DATE OF EXAM: 07/15/2024 CLINICAL INDICATION: Male, 58 years old with history of Cough, TECHNIQUE: Frontal and lateral views of the chest are obtained. COMPARISON: Chest x-ray November 22, 2023 FINDINGS: Improved inspiration. There is no focal air space opacity, pleural effusion, or pneumothor ax seen. The cardiac silhouette size is within normal limits. Bridging osteophytes in the thoracic s pine are redemonstrated. IMPRESSION: No acute pulmonary process. [facility], , 07/15/2024 6:27 PM
[2024-07-15 18:39] LABS: ALT 13 U/L (4-49); AST 34 U/L (17-59); African American GFR (CKD) >90 (>60 ml/min/1.73 sqM); Alcohol <10 mg/dL; Alkaline Phosphatase 107 U/L (38-126); Anion Gap 11 mmol/L; Blood Urea Nitrogen 3 mg/dL (9-20); Calcium 8.8 mg/dL (8.4-10.2); Carbon Dioxide 25 mmol/L (22-30); Chloride 93 mmol/L (98-107); Glucose 103 mg/dL (74-99); Magnesium 1.5 mg/dL (1.6-2.3); Non-African American GFR(CKD) >90 (>60 ml/min/1.73 sqM); Phosphorus 2.7 mg/dL (2.5-4.5); Potassium 3.3 mmol/L (3.5-5.1); Sodium 129 mmol/L (137-145); Total Bilirubin 1.7 mg/dL (0.2-1.3); Total Protein 7.6 g/dL (6.3-8.2)
[2024-07-15 18:57] LABS: Influenza A Detected (Not Detectd); Influenza B Not Detected (Not Detectd); RSV Not Detected (Not Detectd)
[2024-07-15] MEDS: POTASSIUM CHLORIDE ER 20 MEQ TAB.ER PO STA (18:59)
[2024-07-15 19:03] LABS: Platelet Count 64 k/uL (150-450)
[2024-07-15] MEDS: MAGNESIUM OXIDE 400 MG TAB PO STA (19:52)
[2024-07-15] MEDS: IPRATROPIUM-ALBUTEROL 3 ML NEB INHALATION STA (20:02)
[2024-07-15] MEDS: ACETAMINOPHEN TAB 500 MG TAB PO STA (20:18)
[2024-07-15 20:26] VITALS: BP 166/97; PULSE 118; TEMP 99.3
== END 2024-07-15 20:26 | disposition home or self-care (01) ==
LOC: EC 15:59
DX: C20 Malignant neoplasm of rectum (principal); J10.1 Influenza due to other identified influenza virus with other respiratory manifestations; I10 Essential (primary) hypertension; R00.0 Tachycardia, unspecified
CPT/HCPCS: 36415; 94640; 80053; 83605; 83735; 84100; 85025; 81003; 84145; 87636; 71046; 99284; 96360; G0480; 80320

== ENCOUNTER 2024-08-07 04:01 | Inpatient (IN) | payer MEDICARE, OTHER ==
--- NOTE | 2024-08-07 04:32 | ED ---
General Adult HPI - General Chief complaint: Weakness Stated complaint: Weakness Time Seen by Provider: 08/07/24 04:02 Source: patient, EMS, RN notes reviewed, old records reviewed Mode of arrival: EMS Limitations: no limitations - History of Present Illness Initial comments: -year-old male presenting with generalized weakness, fatigue. Patient has had subjective fever and chills. Symptoms began within the last 24 hours.58 patient does admit to heavy alcohol consumption. He states he was diagnosed with influenza and believes he is just getting over the. He was prescribed antibiotics and vitamins by his primary care provider and told that he may have symptoms related to this. - Related Data Home Medications Medication Instructions Recorded Confirmed Potassium Chloride 20 meq PO DAILY 03/09/24 06/25/24 Sodium Chloride Tab 1 gm PO BID 03/09/24 06/25/24 Tamsulosin [Flomax] 0.4 mg PO W/SUPPER 03/09/24 06/25/24 Aspirin 325 mg PO DAILY 06/24/24 06/25/24 Pantoprazole [Protonix] 40 mg PO DAILY 06/24/24 06/25/24 Propranolol [Inderal] 60 mg PO BID 06/24/24 06/25/24 Previous Rx's Medication Instructions Recorded QUEtiapine [SEROquel] 25 mg PO HS 30 Days #30 tab 03/02/24 fluPHENAZine decanoate [Prolixin 50 mg IM [id number] 14 Days #1 ml 03/02/24 Decanoate] Albuterol Inhaler [Ventolin Hfa 1 - 2 puff INHALATION Q6H PRN #1 07/15/24 Inhaler] each Allergies Allergy/AdvReac Type Severity Reaction Status Date / Time clozapine AdvReac Hypotension Verified 08/07/24 04:07 /Diarrhea divalproex sodium AdvReac Hyponatremi Verified 08/07/24 04:07 [From Depakote] a propranolol AdvReac Chest Pain Verified 08/07/24 04:07 Review of Systems ROS Statement: Those systems with pertinent positive or pertinent negative responses have been documented in the HPI. ROS Other: All systems not noted in ROS Statement are negative. Past Medical History Past Medical History: CVA/TIA, GERD/Reflux, Hypertension, Vascular Disorder Additional Past Medical History / Comment(s): ETOH abuse, alcohol withdrawl with tremens, diverticular disease, benign colon polyp, varicose veins. "Mini stroke ." "I had it 22 years ago.""I had numbness to one side of body."-no residual affect. History of Any Multi-Drug Resistant Organisms: None Reported Past Surgical History: No Surgical Hx Reported Additional Past Surgical History / Comment(s): Teeth extractions, colonoscopies. Past Anesthesia/Blood Transfusion Reactions: No Reported Reaction Additional Past Anesthesia/Blood Transfusion Reaction / Comment(s): Never had Past Psychological History: Anxiety, Depression, Schizophrenia Smoking Status: Never smoker Past Alcohol Use History: Abuse, Daily Past Drug Use History: None Reported - Past Family History Father Family Medical History: Myocardial Infarction ([place]) Additional Family Medical History / Comment(s): AT AGE 58 FROM [place] Mother Family Medical History: Deep Vein Thrombosis (DVT), Hypertension Additional Family Medical History / Comment(s): PRIMARY PULMONARY HYPERTENSION General Exam General appearance: alert, in no apparent distress Head exam: Present: atraumatic, normocephalic Eye exam: Present: normal appearance, PERRL ENT exam: Present: normal exam Neck exam: Present: normal inspection. Absent: tenderness, meningismus Respiratory exam: Present: normal lung sounds bilaterally. Absent: respiratory distress Cardiovascular Exam: Present: normal rhythm, tachycardia Neurological exam: Present: alert, oriented X3, CN II-XII intact. Absent: motor sensory deficit Psychiatric exam: Present: anxious Skin exam: Present: warm, dry, intact, pallor Course Vital Signs 08/07/24 08/07/24 04:02 05:42 Temperature 100.6 F H 99.1 F Pulse Rate 113 H Respiratory 18 Rate Blood Pressure 131/86 O2 Sat by Pulse 99 Oximetry Medical Decision Making - Medical Decision Making Was pt. sent in by a medical professional or institution (, PA, LEADER TIER, urgent care, hospital, or penitentiary...) When possible be specific @ -No Did you speak to anyone other than the patient for history (EMS, parent, family, police, friend...)? What history was obtained from this source @ -Paramedics Did you review nursing and triage notes (agree or disagree)? Why? @ -I reviewed and agree with nursing and triage notes Were old charts reviewed (outside hosp., previous admission, EMS record, old EKG, old radiological studies, urgent care reports/EKG's, penitentiary records)? Report findings @ -No old charts were reviewed Differential Weakness: Hypoglycemia, shock, sepsis, hyponatremia, anemia, infection, [place], ETOH, adverse medicine reaction, overdose, stroke, this is not meant to be an all-inclusive list. EKG interpreted by me (3pts min.). @ -Sinus tachycardia rate of 100, GA interval 142, QRS duration 93, QTc [address] segment elevation. X-rays interpreted by me (1pt min.). @ -Chest x-ray negative for consolidated pneumonia CT interpreted by me (1pt min.). @ -None done U/S interpreted by me (1pt. min.). @ -None done What testing was considered but not performed or refused? (CT, X-rays, U/S, labs)? Why? @ -None What meds were considered but not given or refused? Why? @ -None Did you discuss the management of the patient with other professionals (professionals i.e. , PA, LEADER TIER, lab, RT, psych nurse, high school social studies tutor, nurse staff, teacher, corrections officer, test case developer)? Give summary @ -[EMH Was smoking cessation discussed for >3mins.? @ -No Was critical care preformed (if so, how long)? @ -No Were there social determinants of health that impacted care today? How? (Homelessness, low income, unemployed, alcoholism, drug addiction, transportation, low edu. Level, literacy, decrease access to med. care, custodial, rehab)? @ -No Was there de-escalation of care discussed even if they declined (Discuss DNR or withdrawal of care, Hospice)? DNR status @ -No What co-morbidities impacted this encounter? (DM, HTN, Smoking, COPD, CAD, C ancer, CVA, ARF, Chemo, Hep., AIDS, mental health diagnosis, sleep apnea, morbid obesity)? @Alcohol abuse Was patient admitted / discharged? Hospital course, mention meds given and route, prescriptions, significant lab abnormalities, going to OR and other pertinent info. @ --year-old male presents with generalized weakness,58 difficulty ambulating. Patient reports this is an both legs and in general feels weak. He has a low- grade temperature upon arrival and is currently on antibiotics. Undiagnosed new problem with uncertain prognosis? @ -No Drug Therapy requiring intensive monitoring for toxicity (Heparin, Nitro, Insulin, Cardizem)? @ -No Were any procedures done? @ -No Diagnosis/symptom? @ -Weakness dehydration, hypomagnesemia Acute, or Chronic, or Acute on Chronic? @ -[Acute Uncomplicated (without systemic symptoms) or Complicated (systemic symptoms)? @ -Default Side effects of treatment? @ -No Exacerbation, Progression, or Severe Exacerbation? @ -No Poses a threat to life or bodily function? How? (Chest pain, [place], [place], pneumonia, PE, COPD, DKA, ARF, appy, cholecystitis, CVA, Diverticulitis, Homicidal, Suicidal, threat to staff... and all critical care pts) @ -No - Lab Data Result diagrams: 08/07/24 04:30 08/07/24 04:30 Lab Results 08/07/24 08/07/24 08/07/24 Range/Units 04:30 04:30 04:30 WBC 5.5 (3.8-10.6) k/uL RBC 3.74 L (4.30-5.90) m/uL Hgb 11.3 L (13.0-17.5) gm/dL Hct 33.9 L (39.0-53.0) % MCV 90.8 (80.0-100.0) fL MCH 30.3 (25.0-35.0) pg MCHC 33.4 (31.0-37.0) g/dL RDW 16.7 H (11.5-15.5) % Plt Count 112 L D (150-450) k/uL MPV 8.5 Neutrophils % 77 % Lymphocytes % 14 % Monocytes % 6 % Eosinophils % 0 % Basophils % 0 % Neutrophils # 4.2 (1.3-7.7) k/uL Lymphocytes # 0.8 L (1.0-4.8) k/uL Monocytes # 0.3 (0-1.0) k/uL Eosinophils # 0.0 (0-0.7) k/uL Basophils # 0.0 (0-0.2) k/uL Anisocytosis Slight PT 11.5 (10.0-12.5) sec INR 1.0 (<1.2) APTT 25.0 (22.0-30.0) sec Sodium 132 L (137-145) mmol/L Potassium 5.2 H (3.5-5.1) mmol/L Chloride 102 (98-107) mmol/L Carbon Dioxide 21 L (22-30) mmol/L Anion Gap 9 mmol/L BUN 6 L (9-20) mg/dL Creatinine 0.46 L (0.66-1.25) mg/dL Est GFR (CKD-EPI)AfAm >90 (>60 ml/min/1.73 sqM) Est GFR (CKD-EPI)NonAf >90 (>60 ml/min/1.73 sqM) Glucose 109 H (74-99) mg/dL Plasma Lactic Acid Edwin (0.7-2.0) mmol/L Calcium 8.9 (8.4-10.2) mg/dL Magnesium 1.5 L (1.6-2.3) mg/dL Total Bilirubin 1.4 H (0.2-1.3) mg/dL AST 40 (17-59) U/L ALT 13 (4-49) U/L Alkaline Phosphatase 98 (38-126) U/L Total Protein 7.6 (6.3-8.2) g/dL Albumin 3.9 (3.5-5.0) g/dL Urine Color Urine Appearance (Clear) Urine pH (5.0-8.0) Ur Specific [place] (1.001-1.035) Urine Protein (Negative) Urine Glucose (UA) (Negative) Urine Ketones (Negative) Urine Blood (Negative) Urine Nitrite (Negative) Urine Bilirubin (Negative) Urine Urobilinogen (<2.0) mg/dL Ur Leukocyte Esterase (Negative) Urine RBC (0-5) /hpf Urine WBC (0-5) /hpf Influenza Type A (PCR) (Not Detectd) Influenza Type B (PCR) (Not Detectd) RSV (PCR) (Not Detectd) SARS-CoV-2 (PCR) (Not Detectd) 08/07/24 08/07/24 08/07/24 Range/Units 04:30 04:30 05:40 WBC (3.8-10.6) k/uL RBC (4.30-5.90) m/uL Hgb (13.0-17.5) gm/dL Hct (39.0-53.0) % MCV (80.0-100.0) fL MCH (25.0-35.0) pg MCHC (31.0-37.0) g/dL RDW (11.5-15.5) % Plt Count (150-450) k/uL MPV Neutrophils % % Lymphocytes % % Monocytes % % Eosinophils % % Basophils % % Neutrophils # (1.3-7.7) k/uL Lymphocytes # (1.0-4.8) k/uL Monocytes # (0-1.0) k/uL Eosinophils # (0-0.7) k/uL Basophils # (0-0.2) k/uL Anisocytosis PT (10.0-12.5) sec INR (<1.2) APTT (22.0-30.0) sec Sodium (137-145) mmol/L Potassium (3.5-5.1) mmol/L Chloride (98-107) mmol/L Carbon Dioxide (22-30) mmol/L Anion Gap mmol/L BUN (9-20) mg/dL Creatinine (0.66-1.25) mg/dL Est GFR (CKD-EPI)AfAm (>60 ml/min/1.73 sqM) Est GFR (CKD-EPI)NonAf (>60 ml/min/1.73 sqM) Glucose (74-99) mg/dL Plasma Lactic Acid Edwin 1.5 (0.7-2.0) mmol/L Calcium (8.4-10.2) mg/dL Magnesium (1.6-2.3) mg/dL Total Bilirubin (0.2-1.3) mg/dL AST (17-59) U/L ALT (4-49) U/L Alkaline Phosphatase (38-126) U/L Total Protein (6.3-8.2) g/dL Albumin (3.5-5.0) g/dL Urine Color Light Yellow Urine Appearance Clear (Clear) Urine pH 6.5 (5.0-8.0) Ur Specific [place] 1.009 (1.001-1.035) Urine Protein Negative (Negative) Urine Glucose (UA) Negative (Negative) Urine Ketones Negative (Negative) Urine Blood Trace H (Negative) Urine Nitrite Negative (Negative) Urine Bilirubin Negative (Negative) Urine Urobilinogen 2.0 (<2.0) mg/dL Ur Leukocyte Esterase Negative (Negative) Urine RBC 2 (0-5) /hpf Urine WBC 1 (0-5) /hpf Influenza Type A (PCR) Not Detected (Not Detectd) Influenza Type B (PCR) Not Detected (Not Detectd) RSV (PCR) Not Detected (Not Detectd) SARS-CoV-2 (PCR) Not Detected (Not Detectd) Disposition Clinical Impression: Dehydration, Weakness Disposition: ADMITTED IP TO THIS [facility] Condition: Stable Is patient prescribed a controlled substance at d/c from ED?: No Referrals: Sharron Bass MD [Primary Care Provider] - 1-2 days Time of Disposition: 06:10
[2024-08-07] MEDS: ACETAMINOPHEN TAB 500 MG TAB PO STA (04:34)
[2024-08-07] MEDS: LACTATED RINGERS 1,000 ML IV ONE (04:34)
[2024-08-07 04:37] LABS: Anisocytosis Slight; Basophils % (A) 0 %; Eosinophils % (A) 0 %; HCT 33.9 % (39.0-53.0); HGB 11.3 gm/dL (13.0-17.5); Lymphocytes # (A) 0.8 k/uL (1.0-4.8); Lymphocytes % (A) 14 %; MCH 30.3 pg (25.0-35.0); MCHC 33.4 g/dL (31.0-37.0); MCV 90.8 fL (80.0-100.0); Mean Platelet Volume 8.5; Monocytes # (A) 0.3 k/uL (0-1.0); Monocytes % (A) 6 %; Neutrophils # (A) 4.2 k/uL (1.3-7.7); Neutrophils % (A) 77 %; RBC 3.74 m/uL (4.30-5.90); RDW 16.7 % (11.5-15.5); WBC 5.5 k/uL (3.8-10.6)
[2024-08-07 04:48] LABS: Prothrombin Time 11.5 sec (10.0-12.5)
[2024-08-07 04:52] LABS: ALT 13 U/L (4-49); African American GFR (CKD) >90 (>60 ml/min/1.73 sqM); Anion Gap 9 mmol/L; Blood Urea Nitrogen 6 mg/dL (9-20); Calcium 8.9 mg/dL (8.4-10.2); Carbon Dioxide 21 mmol/L (22-30); Chloride 102 mmol/L (98-107); Glucose 109 mg/dL (74-99); Non-African American GFR(CKD) >90 (>60 ml/min/1.73 sqM); Sodium 132 mmol/L (137-145)
[2024-08-07 04:54] LABS: Platelet Count 112 k/uL (150-450)
[2024-08-07 05:00] LABS: AST 40 U/L (17-59); Albumin 3.9 g/dL (3.5-5.0); Alkaline Phosphatase 98 U/L (38-126); Magnesium 1.5 mg/dL (1.6-2.3); Potassium 5.2 mmol/L (3.5-5.1); Total Bilirubin 1.4 mg/dL (0.2-1.3); Total Protein 7.6 g/dL (6.3-8.2)
[2024-08-07 05:18] LABS: Influenza A Not Detected (Not Detectd); Influenza B Not Detected (Not Detectd); RSV Not Detected (Not Detectd)
[2024-08-07 05:49] LABS: Appearance,Urine Clear (Clear); Bilirubin,Urine Negative (Negative); Blood,Urine Trace (Negative); Color,Urine Light Yellow; Glucose,Urine (UA) Negative (Negative); Ketones,Urine Negative (Negative); Leukocyte Esterase,Urine Negative (Negative); Nitrite,Urine Negative (Negative); PH, Urine 6.5 (5.0-8.0); Protein,Urine Negative (Negative); RBC,Urine 2 /hpf (0-5); Specific Gravity,Urine 1.009 (1.001-1.035); WBC,Urine 1 /hpf (0-5)
[2024-08-07] MEDS ORDERED: NALOXONE 0.4 MG/ML 1 ML VIAL IV PRN (06:07)
[2024-08-07] MEDS: MAGNESIUM SULFATE-D5W PMX 1 GM in DEXTROSE/WATER 1 100ML.BAG IVPB SCH (06:19)
[2024-08-07] MEDS: SODIUM CHLORIDE 0.9% 1,000 ML IV SCH (06:20)
--- NOTE | 2024-08-07 06:59 | XR ---
EXAM: XR Chest, 2 Views CLINICAL HISTORY: ITS.REASON XR Reason: fever TECHNIQUE: Frontal and lateral views of the chest. COMPARISON: X-ray dated 07/15/2024. FINDINGS: Lungs: Unremarkable. No consolidation. Pleural space: Unremarkable. No pneumothorax. Heart: Unremarkable. No cardiomegaly. Mediastinum: Unremarkable. Normal mediastinal contour. Bones/joints: Degenerative changes are seen within the spine and shoulders. No acute fracture. IMPRESSION: No acute findings in the chest.
[2024-08-07] MEDS: PANTOPRAZOLE 40 MG TABLET PO SCH (18:03)
[2024-08-07] MEDS: TAMSULOSIN 0.4 MG CAP.ER.24H PO SCH (18:03)
[2024-08-07] MEDS: ACETAMINOPHEN TAB 325 MG TAB PO PRN (18:19)
[2024-08-07] MEDS: AMOXIC-POT CLAV 875-125MG 1 EACH TAB PO SCH (18:20)
[2024-08-07] MEDS: ALBUTEROL NEBULIZED 2.5 MG/3 ML INHALATION SCH (19:50)
[2024-08-07] MEDS ORDERED: LORazepam 1 MG/0.5 ML VIAL IV PRN ×3 (21:18)
[2024-08-07] MEDS: HEPARIN SODIUM,PORCINE 5,000 UNIT/ML 1 ML VIAL SQ SCH (21:31)
--- NOTE | 2024-08-07 22:52 | HP ---
HISTORY AND PHYSICAL CHIEF COMPLAINTS: Weakness and dehydration. HISTORY OF PRESENT ILLNESS: This is a 58-year-old gentleman with a past medical history of multiple medical issues including hypertension and also had significant EtOH issues also. The patient drinks almost a pint of alcohol. The patient was recently diagnosed with influenza, is complaining of weakness and fatigue. At this time, the patient was found to have mild hyperkalemia and hypomagnesemia. The patient admitted for further evaluation and treatment. There is no history of any fever, rigors, or chills at this time. PAST MEDICAL HISTORY: Reviewed and includes GERD, hypertension, EtOH. Rest of the history and rest of the chart is also reviewed. HOME MEDICATIONS: Reviewed and include Flomax. Dose and rest of medications reviewed. ALLERGIES: Clozapine. FAMILY HISTORY: History of myocardial infarction. SOCIAL HISTORY: History of EtOH, half a gallon 3 days and no smoking. REVIEW OF SYSTEMS: Fourteen-point review of systems negative except as mentioned earlier. PHYSICAL EXAMINATION: VITAL SIGNS: Pulse is 102, blood pressure 135/85, respirations 16. HEENT: Oral mucosa dry. HEENT: Conjunctivae normal. NECK: No JVD. CARDIOVASCULAR: S1, S2. RESPIRATIONS: Clear to auscultation. ABDOMEN: Soft. LEGS: No edema. NERVOUS SYSTEM: Diffusely weak. Minimal tremors present. LABORATORY DATA: Reviewed. ASSESSMENT: 1. Severe dehydration and weakness, possibly with diminished p.o. intake, present on admission. 2. History of EtOH. 3. Possible early ETOH withdrawal symptoms. 4. Elevated potassium. 5. Hypertension. 6. Gastroesophageal reflux disease. 7. Weakness. 8. Anxiety, depression and schizophrenia. RECOMMENDATIONS: This is a 58-year-old gentleman, who presented with multiple complex medical issues. We will monitor the patient closely. Continue with the current medications. Continue with IV fluids. Repeat labs. Resume the home medications once they are confirmed. CIWA protocol. Guarded prognosis because of multiple complex medical issues. Further recommendations to follow. MMODL / IJN: [id number] /
[2024-08-08 08:05] LABS: ALT 11 U/L (4-49); AST 28 U/L (17-59); African American GFR (CKD) >90 (>60 ml/min/1.73 sqM); Albumin 3.1 g/dL (3.5-5.0); Alkaline Phosphatase 94 U/L (38-126); Anion Gap 5 mmol/L; Blood Urea Nitrogen 5 mg/dL (9-20); Calcium 8.7 mg/dL (8.4-10.2); Carbon Dioxide 24 mmol/L (22-30); Chloride 99 mmol/L (98-107); Globulin 3.2 g/dL; Glucose 103 mg/dL (74-99); Non-African American GFR(CKD) >90 (>60 ml/min/1.73 sqM); Potassium 4.4 mmol/L (3.5-5.1); Sodium 128 mmol/L (137-145); Total Bilirubin 1.4 mg/dL (0.2-1.3); Total Protein 6.3 g/dL (6.3-8.2)
[2024-08-08 08:29] LABS: Anisocytosis Slight; Basophils % (A) 0 %; Eosinophils % (A) 0 %; HCT 30.4 % (39.0-53.0); HGB 10.2 gm/dL (13.0-17.5); Lymphocytes # (A) 0.9 k/uL (1.0-4.8); Lymphocytes % (A) 21 %; MCH 30.8 pg (25.0-35.0); MCHC 33.4 g/dL (31.0-37.0); MCV 92.1 fL (80.0-100.0); Mean Platelet Volume 8.5; Monocytes # (A) 0.3 k/uL (0-1.0); Monocytes % (A) 8 %; Neutrophils # (A) 2.7 k/uL (1.3-7.7); Neutrophils % (A) 67 %; RDW 16.8 % (11.5-15.5)
[2024-08-08] MEDS: ASPIRIN 81 MG PO SCH (09:24)
[2024-08-08] MEDS: FOLIC ACID 1 MG TAB PO SCH (09:24)
[2024-08-08] MEDS: FERROUS SULFATE 325 MG TAB PO SCH (09:24)
[2024-08-08] MEDS: atenoloL 50 MG TAB PO SCH (09:25)
[2024-08-08 09:48] LABS: Large Platelets Present
[2024-08-08 09:49] LABS: Platelet Count 88 k/uL (150-450)
--- NOTE | 2024-08-08 16:39 | CT ---
EXAMINATION TYPE: CT chest angio for PE DATE OF EXAM: 08/08/2024 4:13 PM COMPARISON: Chest radiograph 08/07/2024. CLINICAL INDICATION: Male, 58 years old with history of rule out PE; rule out PE TECHNIQUE/CONTRAST: CTA scan of the thorax is performed with IV Contrast, patient injected with 70ml mL of Isovue 300, AL P images are created and reviewed these are created on a separate workstation.. CT DLP: 347.70 mGycm, Automated exposure control for dose reduction was used. FINDINGS: Pulmonary Artery: There is no evidence for a filling defect within the pulmonary vasculature to sugge st acute pulmonary embolism. The pulmonary artery is of normal size. Lungs/Pleura: No evidence of focal consolidation, pleural effusion or pneumothorax. Airway: Large airways are patent. Heart: Heart is within normal limits for size. Vasculature: No evidence of aortic aneurysm. Mediastinum: No gross evidence of adenopathy. Musculoskeletal: No acute osseous abnormalities Soft Tissues/lymph nodes: Unremarkable. Lower neck: No significant findings. Upper Abdomen: No significant acute findings. Cholelithiasis. Splenomegaly and hepatic steatosis. IMPRESSION: 1. No acute pulmonary embolism or acute pulmonary pathology. 2. Hepatic steatosis. 3. Cholelithiasis. 4. Cardiomegaly. [facility], , 08/08/2024 4:37 PM
--- NOTE | 2024-08-09 05:42 | PN ---
PROGRESS NOTE DATE OF SERVICE: 08/08/2024 SUBJECTIVE: This is a 58-year-old gentleman, who was admitted with severe dehydration and weakness, also had history of EtOH. The patient has some tremors. OBJECTIVE: VITAL SIGNS: Pulse is 110, blood pressure 120/80, respirations 16. CHEST: A few scattered rhonchi. ABDOMEN: Soft. NERVOUS SYSTEM: Nonfocal. LABORATORY DATA: Reviewed. ASSESSMENT: 1. Severe dehydration and weakness, possibly with diminished p.o. intake, present on admission. 2. History of EtOH. 3. Tachycardia. 4. Elevated D-dimer. 5. Possible early EtOH withdrawal symptoms. 6. Elevated potassium. 7. Multiple complex medical issues. RECOMMENDATIONS: Recommend to continue current management and continue symptomatic treatment. I recommend CT angio of the chest and I would also recommend repeat labs. Continue with CIWA protocol. Prognosis guarded. Further recommendations to follow. HEIDYL / BRADFORDN: [id number] /
[2024-08-09 08:27] LABS: BUN/Creat Ratio 9.83 Ratio (12.00-20.00); Blood Urea Nitrogen 5.9 mg/dL (9.0-27.0); Calcium 8.3 mg/dL (8.7-10.3); Carbon Dioxide 24.5 mmol/L (21.6-31.8); Chloride 99 mmol/L (96-109); Glucose 95 mg/dL (70-110); Potassium 4.2 mmol/L (3.5-5.5); Sodium 131 mmol/L (135-145)
[2024-08-09 09:16] LABS: Basophils # (A) 0.02 X 10*3/uL (0.00-0.10); Basophils % (A) 0.5 %; Eosinophils # (A) 0 X 10*3/uL (0.04-0.35); Eosinophils % (A) 0 %; HCT 28.8 % (39.6-50.0); HGB 9.5 g/dL (13.0-17.0); Immature Platelet Fraction 3.5 % (1.1-6.1); Lymphocytes # (A) 0.97 X 10*3/uL (0.90-5.00); Lymphocytes % (A) 22.9 %; MCH 30.6 pg (27.0-32.0); MCV 92.9 FL (80.0-97.0); Mean Platelet Volume 9.8 FL (9.5-12.2); Monocytes # (A) 0.46 X 10*3/uL (0.20-1.00); Monocytes % (A) 10.8 %; NRBC Per 100 WBC 0 X 10*3/uL (0.00-0.01); Neutrophils # (A) 2.77 X 10*3/uL (1.80-7.70); Neutrophils % (A) 65.3 %; Platelet Count 79 X 10*3/uL (140-440); RDW 17.4 % (11.5-14.5); WBC 4.24 X 10*3/uL (4.50-10.00)
[2024-08-09 15:39] VITALS: BP 125/71; RESP 15; TEMP 98.8
[2024-08-09 17:04] VITALS: PULSE 92
[2024-08-10] MEDS ORDERED: fluPHENAZine DECANOATE 25 MG/ML 5ML MDV IM SCH (09:00)
--- NOTE | 2024-08-10 11:52 | P.DS ---
Providers Date of admission: 08/09/24 08:01 Expected date of discharge: 08/09/24 Attending physician: Percy Harrison Primary care physician: Sharron Bass [facility] Course: Final diagnosis Severe dehydration and weakness with diminished oral intake, present on admission History of EtOH with concerns of possible EtOH withdrawal Tachycardia, improved Elevated D-dimer, PE ruled out Elevated potassium, improved History of CVA/TIA GERD Hypertension History of anxiety/depression/schizophrenia Daily alcohol use GI prophylaxis Noncompliance with medication and follow-up DVT prophylaxis Full code Discharge disposition Patient is being discharged in a stable condition with guarded prognosis to home. Patient will follow-up with Dr. Steven Root in the outpatient setting upon discharge. Patient is to continue with current medications and recommend strongly patient goes to inpatient alcohol rehab as scheduled. Patient reports he has no desire to and has no desire to quit drinking. Total time taken is greater than 35 minutes. Hospital course This is a 58-year-old male who was recently admitted with severe dehydration and weakness with EtOH and also some tremors with concerns of acute alcohol withdrawal and delirium tremens. Patient did have an elevated D-dimer and underwent CTA which was negative for PE. Patient maintained on hydration showing improvements is up and walking and was also maintained on CIWA protocol. Patient has not required Ativan and reports he has no desire to quit drinking and that he enjoys it as it is his hobby. Patient strongly encouraged to attend inpatient alcohol rehab and/or AA meetings and complete alcohol cessation. Patient to follow-up with primary care provider on discharge. Currently no reports of chest pain, shortness of breath, or palpitations. Patient is afebrile. No reports of nausea or vomiting and patient is tolerating diet. Patient will be discharged home today. Guarded prognosis and high risk for readmissions given continued ongoing alcohol abuse Physical exam: Gen: This is a 58-year-old male who is awake, alert and oriented x 3, well- developed, well-nourished, appears older than stated age HEENT: Head is atraumatic, normocephalic. Pupils equal, round. Sclerae is anicteric. NECK: Supple. No JVD. No lymphadenopathy. No thyromegaly. LUNGS: Diminished breath sounds bilaterally otherwise clear to auscultation. No wheezes or rhonchi. No intercostal retractions. HEART: S1, S2 are muffled ABDOMEN: Soft. Bowel sounds are present. No masses. No tenderness. EXTREMITIES: No pedal edema. No calf tenderness. NEUROLOGICAL: Patient is awake, alert and oriented x3. Cranial nerves 2 through 12 are grossly intact. Please refer to medication reconciliation sheet for a list of medications. The impression and plan of care has been dictated by Merry Maldonado, Nurse Practitioner as directed. Dr. Dk MD I have performed a history and examination and MDM of this patient, discussed the same with the dictator, and agree with the dictator's assessment and plan as written ,documented as a scribe. Based on total visit time, I have performed more than 50% of the visit. Patient Condition at Discharge: Stable Plan - Discharge Summary New Discharge Prescriptions: New Acetaminophen Tab [Tylenol] 650 mg PO Q6HR PRN tab PRN Reason: Mild Pain Or Fever > 100.5 Continue Pantoprazole [Protonix] 40 mg PO AC-BID Potassium Chloride ER [K-Dur 20] 20 meq PO BID atenoloL [Tenormin] 50 mg PO DAILY Aspirin EC [Ecotrin Low Dose] 81 mg PO DAILY Folic Acid 1 mg PO DAILY Ferrous Sulfate [Iron] 325 mg PO DAILY fluPHENAZine decanoate [Prolixin Decanoate] 50 mg IM [id number] 14 Days #1 ml Tamsulosin [Flomax] 0.4 mg PO W/SUPPER Sodium Chloride Tab 1 gm PO BID Amoxic-Pot Clav 875-125Mg [Augmentin 875-125] 1 tab PO Q12HR Albuterol Inhaler [Ventolin Hfa Inhaler] 2 puff INHALATION RT-Q6H PRN PRN Reason: Shortness Of Breath Discharge Medication List fluPHENAZine decanoate [Prolixin Decanoate] 50 mg IM [id number] 14 Days #1 ml 03/02/24 [Rx] Sodium Chloride Tab 1 gm PO BID 03/09/24 [History] Tamsulosin [Flomax] 0.4 mg PO W/SUPPER 03/09/24 [History] Pantoprazole [Protonix] 40 mg PO AC-BID 06/24/24 [History] Albuterol Inhaler [Ventolin Hfa Inhaler] 2 puff INHALATION RT-Q6H PRN 08/07/24 [History] Amoxic-Pot Clav 875-125Mg [Augmentin 875-125] 1 tab PO Q12HR 08/07/24 [History] Aspirin EC [Ecotrin Low Dose] 81 mg PO DAILY 08/07/24 [History] Ferrous Sulfate [Iron] 325 mg PO DAILY 08/07/24 [History] Folic Acid 1 mg PO DAILY 08/07/24 [History] Potassium Chloride ER [K-Dur 20] 20 meq PO BID 08/07/24 [History] atenoloL [Tenormin] 50 mg PO DAILY 08/07/24 [History] Acetaminophen Tab [Tylenol] 650 mg PO Q6HR PRN tab 08/09/24 [Rx] Follow up Appointment(s)/Referral(s): Sharron Bass MD [Primary Care Provider] - 1-2 days Patient Instructions/Handouts: Hyponatremia (DC), Abuse of Alcohol (DC), Weakness (DC) Activity/Diet/Wound Care/Special Instructions: Activity limited until follow-up Follow-up with primary care provider on discharge Strongly recommend inpatient alcohol rehab and AA meetings Cut down drinking drastically as discussed and/or complete cessation of Discharge Disposition: HOME SELF-CARE
== END 2024-08-09 20:07 | disposition home or self-care (01) | DRG 641 ==
LOC: EC 04:01 → 6NMEDSUR 06:07 → OBSVTOIN 08-09 08:01
PROVIDERS: ADMIT Internal Medicine; ATTEND Internal Medicine
DX: E86.0 Dehydration (principal); E83.42 Hypomagnesemia; F10.239 Alcohol dependence with withdrawal, unspecified; F20.9 Schizophrenia, unspecified; I10 Essential (primary) hypertension; F32.A Depression, unspecified; E87.5 Hyperkalemia; R00.0 Tachycardia, unspecified; R79.89 Other specified abnormal findings of blood chemistry; K21.9 Gastro-esophageal reflux disease without esophagitis; F41.9 Anxiety disorder, unspecified; Z91.148 Patient's other noncompliance with medication regimen for other reason; Z79.82 Long term (current) use of aspirin; Z88.8 Allergy status to other drugs, medicaments and biological substances; Z86.73 Personal history of transient ischemic attack (TIA), and cerebral infarction without residual deficits; Z88.9 Allergy status to unspecified drugs, medicaments and biological substances
CPT/HCPCS: 36415; 71046; 71275; 80048; 80053; 81001; 83605; 83735; 85025; 85379; 85610; 85730; 87636; 93005; 94640; 94664; 96361; 96365; 96366; 99285

== ENCOUNTER → 2024-10-12 | Outpatient (CLI) | payer MEDICARE, OTHER ==
--- NOTE | 2024-10-12 11:49 | US ---
EXAMINATION TYPE: US thyroid st tissue head/neck DATE OF EXAM: 10/12/2024 COMPARISON: NONE CLINICAL INDICATION: Male, 58 years old with history of E04.1 THYROID NODULE; thy nodule TECHNIQUE: Grayscale and color Doppler imaging of the thyroid gland. FINDINGS: GLAND SIZE: Right Lobe: 5.6 x 1.3 x 1.8 cm Overall Parenchyma: homogeneous Left Lobe: 5.2 x 1.3 x 1.7 cm Overall Parenchyma: homogeneous Isthmus Thickness: .3 cm NODULES RIGHT: # of nodules measured on right: 0 LEFT: # of nodules measured on left: 0 ISTHMUS: # of nodules measured in the isthmus: 0 Bilateral neck scanned, no evidence of lymphadenopathy. IMPRESSION: No suspicious thyroid nodules Highest TI-RADS level nodule reported: 2017 ACR TI-RADS LEVEL: TI-RADS 1 - BENIGN: No FNA TI-RADS assessment score and recommendation for follow-up based on appropriate scoring and treatment protocols. TR1 Benign No FNA TR2 Not suspicious No FNA TR3: If nodule size is ? 2.5 cm, FNA is recommended. If nodule size is ? 1.5 cm, follow-up imaging at 1, 3, and 5 years is recommended. TR4: If nodule size is ? 1.5 cm, FNA is recommended. If nodule size is ? 1.0 cm, follow-up imaging at 1, 2, 3, and 5 years is recommended. TR5: If nodule size is ? 1.0 cm, FNA is recommended. If nodule size is ? 0.5 cm, annual follow-up for up to 5 years is recommended. TR 1 thyroid nodules have a 0.3 % risk of malignancy. TR 2 thyroid nodules have a 1.5 % risk of malignancy. TR 3 thyroid nodules have a 4.8 % risk of malignancy. TR 4 thyroid nodules have a 9.1 % risk of malignancy. TR 5 thyroid nodules have a 35 % risk of malignancy. [email or web address] [facility], , 10/12/2024 11:46 AM
== END | disposition home or self-care (01) ==
LOC: RADUSWWP 10:55
PROVIDERS: ATTEND Family Medicine
DX: E04.1 Nontoxic single thyroid nodule (principal)
CPT/HCPCS: 76536

== ENCOUNTER → 2024-11-02 | Outpatient (CLI) | payer MEDICARE, OTHER ==
--- NOTE | 2024-11-02 15:01 | US ---
EXAMINATION TYPE: US venous doppler duplex LE BI DATE OF EXAM: 11/02/2024 2:39 PM COMPARISON: NONE CLINICAL INDICATION: Male, 59 years old with history of M79.605 PAIN LT LEG,M79.604 PAIN RT LEG; Pain in both right and left legs, Pain TECHNIQUE: The lower extremity deep venous system is examined utilizing real time linear array sonog rito with graded compression, color doppler sonography, and spectral doppler. SIDE PERFORMED: Bilateral FINDINGS: VESSELS IMAGED: Common Femoral Vein Deep Femoral Vein Greater Saphenous Vein * Femoral Vein Popliteal Vein Small Saphenous Vein * Proximal Calf Veins (* superficial vessels) Exam limited by patient movement Right Leg: Appears negative for DVT Left Leg: Appears negative for DVT IMPRESSION: No ultrasound evidence for deep venous thrombosis. [facility], , 11/02/2024 2:59 PM
== END | disposition home or self-care (01) ==
LOC: RADUSWWP 13:25
PROVIDERS: ATTEND Family Medicine
DX: M79.605 Pain in left leg (principal); M79.604 Pain in right leg
CPT/HCPCS: 93970

== ENCOUNTER 2024-11-14 11:41 | Emergency (ER) | payer MEDICARE, OTHER ==
[2024-11-14 11:52] VITALS: RESP 18
--- NOTE | 2024-11-14 13:29 | ED ---
Extremity Problem HPI - General Chief complaint: Extremity Problem,Nontraumatic Stated complaint: L foot pain Time Seen by Provider: 11/14/24 13:25 Source: patient, RN notes reviewed Mode of arrival: ambulatory Limitations: no limitations - History of Present Illness Initial comments: 59-year-old male presenting for left foot swelling x 1 week. States he dropped a 2 L of pop onto his foot and since then has had increasing pain and redness on the top of his left foot. He is able to weight-bear. He has been taking ibuprofen for the pain. Denies calf pain or swelling. Denies drainage from the site. He is currently undergoing radiation therapy for rectal cancer. - Related Data Home Medications Medication Instructions Recorded Confirmed Sodium Chloride Tab 1 gm PO BID 03/09/24 08/07/24 Tamsulosin [Flomax] 0.4 mg PO W/SUPPER 03/09/24 08/07/24 Pantoprazole [Protonix] 40 mg PO AC-BID 06/24/24 08/07/24 Albuterol Inhaler [Ventolin Hfa 2 puff INHALATION RT-Q6H PRN 08/07/24 08/07/24 Inhaler] Amoxic-Pot Clav 875-125Mg 1 tab PO Q12HR 08/07/24 08/07/24 [Augmentin 875-125] Aspirin EC [Ecotrin Low Dose] 81 mg PO DAILY 08/07/24 08/07/24 Ferrous Sulfate [Iron] 325 mg PO DAILY 08/07/24 08/07/24 Folic Acid 1 mg PO DAILY 08/07/24 08/07/24 Potassium Chloride ER [K-Dur 20] 20 meq PO BID 08/07/24 08/07/24 atenoloL [Tenormin] 50 mg PO DAILY 08/07/24 08/07/24 Previous Rx's Medication Instructions Recorded fluPHENAZine decanoate [Prolixin 50 mg IM [id number] 14 Days #1 ml 03/02/24 Decanoate] Acetaminophen Tab [Tylenol] 650 mg PO Q6HR PRN tab 08/09/24 Cephalexin [Keflex] 500 mg PO Q6HR 7 Days #28 cap 11/14/24 Diclofenac Sodium Gel [Voltaren 1% 2 gm TOPICAL QID #100 gm 11/14/24 Gel] Allergies Allergy/AdvReac Type Severity Reaction Status Date / Time clozapine AdvReac Hypotension Verified 08/07/24 10:21 /Diarrhea divalproex sodium AdvReac Hyponatremi Verified 08/07/24 10:21 [From Depakote] a propranolol AdvReac Chest Pain Verified 08/07/24 10:21 Review of Systems ROS Statement: Those systems with pertinent positive or pertinent negative responses have been documented in the HPI. ROS Other: All systems not noted in ROS Statement are negative. Past Medical History Past Medical History: CVA/TIA, GERD/Reflux, Hypertension, Vascular Disorder Additional Past Medical History / Comment(s): ETOH abuse, alcohol withdrawl with tremens, diverticular disease, benign colon polyp, varicose veins. "Mini stroke." "I had it 22 years ago.""I had numbness to one side of body."-no residual affect. History of Any Multi-Drug Resistant Organisms: None Reported Past Surgical History: No Surgical Hx Reported Additional Past Surgical History / Comment(s): Teeth extractions, colonoscopies. Past Anesthesia/Blood Transfusion Reactions: No Reported Reaction Additional Past Anesthesia/Blood Transfusion Reaction / Comment(s): Never had Past Psychological History: Anxiety, Depression, Schizophrenia Smoking Status: Never smoker Past Alcohol Use History: Abuse, Daily Past Drug Use History: None Reported - Past Family History Father Family Medical History: Myocardial Infarction ([place]) Additional Family Medical History / Comment(s): AT AGE 58 FROM [place] Mother Family Medical History: Deep Vein Thrombosis (DVT), Hypertension Additional Family Medical History / Comment(s): PRIMARY PULMONARY HYPERTENSION General Exam Limitations: no limitations General appearance: alert, in no apparent distress Head exam: Present: atraumatic, normocephalic, normal inspection Left Lower Leg exam: Present: normal inspection, full ROM. Absent: tenderness, swelling Ankle exam: Present: normal inspection, full ROM. Absent: tenderness, swelling Foot/Toe exam: Present: full ROM, tenderness, swelling. Absent: normal inspection (Mild erythema and warmth over dorsal aspect of left foot with no active drainage. No fluctuance.), abrasion, puncture wound Neurovascular tendon exam: Present: no vascular compromise. Absent: pulse deficit, abnormal cap refill, motor deficit Neurological exam: Present: alert, oriented X3 Psychiatric exam: Present: normal affect, normal mood Skin exam: Present: warm, dry, intact, normal color. Absent: rash Course Vital Signs 11/14/24 11:49 Temperature 98.2 F Pulse Rate 94 Respiratory 18 Rate Blood Pressure 159/93 O2 Sat by Pulse 98 Oximetry Medical Decision Making - Medical Decision Making Was pt. sent in by a medical professional or institution (, [facility], WOOD TYPE CUTTER, urgent care, hospital, or intermediate...) When possible be specific @ -No Did you speak to anyone other than the patient for history (EMS, parent, family, police, friend...)? What history was obtained from this source @ -No Did you review nursing and triage notes (agree or disagree)? Why? @ -I reviewed and agree with nursing and triage notes Were old charts reviewed (outside hosp., previous admission, EMS record, old EKG, old radiological studies, urgent care reports/EKG's, intermediate records)? Report findings @ -No old charts were reviewed Differential Diagnosis (chest pain, altered mental status, abdominal pain women, abdominal pain men, vaginal bleeding, weakness, fever, dyspnea, syncope, headache, dizziness, GI bleed, back pain, seizure, CVA, palpatations, mental health, musculoskeletal)? @ -Differential Musculoskeletal Muscular strain, contusion, ligament sprain, fracture, arthritis, septic arthritis, bursitis, cellulitis, muscle spasm, nerve compression, DVT, arterial occlusion, herpes zoster, electrolyte abnormality, tumor.... This is not meant to be in all inclusive list EKG interpreted by me (3pts min.). @ -None X-rays interpreted by me (1pt min.). @ -X-ray left foot reveals no acute process CT interpreted by me (1pt min.). @ -None done U/S interpreted by me (1pt. min.). @ -None done What testing was considered but not performed or refused? (CT, X-rays, U/S, labs)? Why? @ -None What meds were considered but not given or refused? Why? @ -None Did you discuss the management of the patient with other professionals (professionals i.e. , [facility]YSON, WOOD TYPE CUTTER, lab, RT, psych nurse, social welfare administrator, utility worker film processing, teacher, community liaison officer, case advocate)? Give summary @ -No Was smoking cessation discussed for >3mins.? @ -No Was critical care preformed (if so, how long)? @ -No Were there social determinants of health that impacted care today? How? (Homelessness, low income, unemployed, alcoholism, drug addiction, transportation, low edu. Level, literacy, decrease access to med. care, [facility], rehab)? @ -No Was there de-escalation of care discussed even if they declined (Discuss DNR or withdrawal of care, Hospice)? DNR status @ -No What co-morbidities impacted this encounter? (DM, HTN, Smoking, COPD, CAD, Cancer, CVA, ARF, Chemo, Hep., AIDS, mental health diagnosis, sleep apnea, morbid obesity)? @ -None Was patient admitted / discharged? Hospital course, mention meds given and route, prescriptions, significant lab abnormalities, going to OR and other pertinent info. @ -Discharge. 59-year-old male presenting for left foot redness/swelling x 1 week status post dropping a 2 L of pop on his foot. He is able to weight-bear. Neurovascularly intact to the left lower extremity. X-ray left foot reveals no acute process. Discussed diagnosis of mild cellulitis. Will provide patient with outpatient course of Keflex. Patient is also requesting Voltaren gel. Strict return precautions and close follow-up care discussed with patient and he verbalizes understanding and agrees to plan. Case was discussed with my ED attending Dr. Ziegler. Undiagnosed new problem with uncertain prognosis? @ -No Drug Therapy requiring intensive monitoring for toxicity (Heparin, Nitro, Insulin, Cardizem)? @ -No Were any procedures done? @ -No Diagnosis/symptom? @ -Cellulitis left foot Acute, or Chronic, or Acute on Chronic? @ -Acute Uncomplicated (without systemic symptoms) or Complicated (systemic symptoms)? @ -Uncomplicated Side effects of treatment? @ -No Exacerbation, Progression, or Severe Exacerbation? @ -No Poses a threat to life or bodily function? How? (Chest pain, [place], [place], pneumonia, PE, COPD, DKA, ARF, appy, cholecystitis, CVA, Diverticulitis, Homicidal, Suicidal, threat to staff... and all critical care pts) @ -Not at this time Disposition Clinical Impression: Cellulitis of left foot Disposition: HOME SELF-CARE Condition: Stable Instructions (If sedation given, give patient instructions): Cellulitis (ED) Additional Instructions: Take Keflex as prescribed. Please return to the Emergency Department if symptoms worsen or any other concerns. Prescriptions: Cephalexin [Keflex] 500 mg PO Q6HR 7 Days #28 cap Diclofenac Sodium Gel [Voltaren 1% Gel] 2 gm TOPICAL QID #100 gm Is patient prescribed a controlled substance at d/c from ED?: No Referrals: Sharron Bass MD [Primary Care Provider] - 1-2 days Time of Disposition: 14:13
--- NOTE | 2024-11-14 13:44 | XR ---
Left foot HISTORY: Pain following injury. COMPARISON: None TECHNIQUE: 3 views of the left foot were obtained. FINDINGS: There is no fracture, dislocation, intraosseous or intra-articular abnormality. There is no radiopaqu e foreign body or abnormal soft tissue calcification or gas. IMPRESSION: No significant abnormality seen. [facility], , 11/14/2024 1:42 PM
[2024-11-14] MEDS: CEPHALEXIN 500 MG CAP PO STA (14:33)
[2024-11-14 14:50] VITALS: BP 157/93; PULSE 80; TEMP 97.7
== END 2024-11-14 14:40 | disposition home or self-care (01) ==
LOC: EC 11:41
DX: L03.116 Cellulitis of left lower limb (principal); Z51.0 Encounter for antineoplastic radiation therapy; Z88.8 Allergy status to other drugs, medicaments and biological substances; W20.8XXA Other cause of strike by thrown, projected or falling object, initial encounter
CPT/HCPCS: 99283

== ENCOUNTER 2024-11-19 12:46 | Emergency (ER) | payer MEDICARE, OTHER ==
[2024-11-19 12:50] VITALS: TEMP 97.9
--- NOTE | 2024-11-19 13:02 | ED ---
General Adult HPI - General Chief complaint: Extremity Problem,Nontraumatic Stated complaint: Left foot injury Time Seen by Provider: 11/19/24 12:52 Source: patient Mode of arrival: ambulatory Limitations: no limitations - History of Present Illness Initial comments: Dictation was produced using [employer] dictation software. please excuse any grammatical, word or spelling errors. Chief Complaint: 59-year-old male presents to the ER for left foot pain History of Present Illness: Patient 59-year-old male presents emergency department for left foot pain. Patient was seen here last week for the same issue. States that he believes his symptoms all started when he dropped a 2 L bottle of pop on his foot. Since then he had some redness. Seen here in the emergency department prescribed Keflex for concerns of possible associated cellulitis. Symptoms did not improve with Keflex went to see the primary care doctor today. According to at the bedside primary care doctor offered a blood test to check for WBC count with the results tomorrow. They did not feel patient have to wait decided come to the ER instead. Denies any fever chills or night sweats. States that pain is localized to the top of his foot when palpating. Patient denies minimal complications with ambulating. The ROS documented in this emergency department record has been reviewed and confirmed by me. Those systems with pertinent positive or negative responses have been documented in the HPI. All other systems are other negative and/or noncontributory. - Related Data Home Medications Medication Instructions Recorded Confirmed Sodium Chloride Tab 1 gm PO BID 03/09/24 08/07/24 Tamsulosin [Flomax] 0.4 mg PO W/SUPPER 03/09/24 08/07/24 Pantoprazole [Protonix] 40 mg PO AC-BID 06/24/24 08/07/24 Albuterol Inhaler [Ventolin Hfa 2 puff INHALATION RT-Q6H PRN 08/07/24 08/07/24 Inhaler] Amoxic-Pot Clav 875-125Mg 1 tab PO Q12HR 08/07/24 08/07/24 [Augmentin 875-125] Aspirin EC [Ecotrin Low Dose] 81 mg PO DAILY 08/07/24 08/07/24 Ferrous Sulfate [Iron] 325 mg PO DAILY 08/07/24 08/07/24 Folic Acid 1 mg PO DAILY 08/07/24 08/07/24 Potassium Chloride ER [K-Dur 20] 20 meq PO BID 08/07/24 08/07/24 atenoloL [Tenormin] 50 mg PO DAILY 08/07/24 08/07/24 Previous Rx's Medication Instructions Recorded fluPHENAZine decanoate [Prolixin 50 mg IM [id number] 14 Days #1 ml 03/02/24 Decanoate] Acetaminophen Tab [Tylenol] 650 mg PO Q6HR PRN tab 08/09/24 Cephalexin [Keflex] 500 mg PO Q6HR 7 Days #28 cap 11/14/24 Diclofenac Sodium Gel [Voltaren 1% 2 gm TOPICAL QID #100 gm 11/14/24 Gel] oxyCODONE-APAP 5-325MG [Percocet 1 tab PO Q6HR PRN 3 Days #12 tab 11/19/24 5-325 mg] Allergies Allergy/AdvReac Type Severity Reaction Status Date / Time clozapine AdvReac Hypotension Verified 11/19/24 12:50 /Diarrhea divalproex sodium AdvReac Hyponatremi Verified 11/19/24 12:50 [From Depakote] a propranolol AdvReac Chest Pain Verified 11/19/24 12:50 Review of Systems ROS Statement: Those systems with pertinent positive or pertinent negative responses have been documented in the HPI. ROS Other: All systems not noted in ROS Statement are negative. Past Medical History Past Medical History: CVA/TIA, GERD/Reflux, Hypertension, Vascular Disorder Additional Past Medical History / Comment(s): ETOH abuse, alcohol withdrawl with tremens, diverticular disease, benign colon polyp, varicose veins. "Mini stroke." "I had it 22 years ago.""I had numbness to one side of body."-no re sidual affect. History of Any Multi-Drug Resistant Organisms: None Reported Past Surgical History: No Surgical Hx Reported Additional Past Surgical History / Comment(s): Teeth extractions, colonoscopies. Past Anesthesia/Blood Transfusion Reactions: No Reported Reaction Additional Past Anesthesia/Blood Transfusion Reaction / Comment(s): Never had Past Psychological History: Anxiety, Depression, Schizophrenia Smoking Status: Never smoker Past Alcohol Use History: Abuse, Daily Past Drug Use History: None Reported - Past Family History Father Family Medical History: Myocardial Infarction ([place]) Additional Family Medical History / Comment(s): AT AGE 58 FROM [place] Mother Family Medical History: Deep Vein Thrombosis (DVT), Hypertension Additional Family Medical History / Comment(s): PRIMARY PULMONARY HYPERTENSION General Exam - General Exam Comments Initial Comments: General: Well-appearing, nontoxic, no acute distress. Head: Normocephalic, atraumatic Eyes: PERRLA, EOMI ENT: Airway patent Chest: Nonlabored breathing Skin: No visual rash, normal skin tone Neuro: Alert and oriented 3 Musculoskeletal: No gross abnormalities Left foot: Erythema to the dorsum of the foot with mild palpatory tenderness to the dorsum. Denies any significant exacerbation with squeezing the metatarsal heads Limitations: no limitations Course Vital Signs 11/19/24 12:47 Temperature 97.9 F Pulse Rate 103 H Respiratory 18 Rate Blood Pressure 158/96 O2 Sat by Pulse 95 Oximetry Medical Decision Making - Medical Decision Making Was pt. sent in by a medical professional or institution (, PA, PSYCHIATRIC LPN, urgent care, hospital, or fdc...) When possible be specific @ -No Did you speak to anyone other than the patient for history (EMS, parent, family, police, friend...)? What history was obtained from this source @ -No Did you review nursing and triage notes (agree or disagree)? Why? @ -I reviewed and agree with nursing and triage notes Were old charts reviewed (outside hosp., previous admission, EMS record, old EKG, old radiological studies, urgent care reports/EKG's, fdc records)? Report findings @ -No old charts were reviewed Differential Diagnosis (chest pain, altered mental status, abdominal pain women, abdominal pain men, vaginal bleeding, musculoskeletal, weakness, fever, dyspnea, syncope, headache, dizziness, GI bleed, back pain, seizure, CVA, palpatations, mental health)? @ -Foot fracture, foot sprain, cellulitis EKG interpreted by me (3pts min.). @ -None done X-rays interpreted by me (1pt min.). @ -Left foot x-ray shows no acute processes CT interpreted by me (1pt min.). @ -None done U/S interpreted by me (1pt. min.). @ -None done What testing was considered but not performed or refused? (CT, X-rays, U/S, labs)? Why? @ -None What meds were considered but not given or refused? Why? @ -None Was smoking cessation discussed for >3mins.? @ -No Were there social determinants of health that impacted care today? How? (Homelessness, low income, unemployed, alcoholism, drug addiction, transportation, low edu. Level, literacy, decrease access to med. care, long-term, rehab)? @ -No Was there de-escalation of care discussed even if they declined (Discuss DNR or withdrawal of care, Hospice)? DNR status @ -No What co-morbidities impacted this encounter? (DM, HTN, Smoking, COPD, CAD, Cancer, CVA, ARF, Chemo, Hep., AIDS, mental health diagnosis, sleep apnea, morbid obesity)? @ -History of rectal cancer with current rectal cancer treatment Was patient admitted / discharged? Hospital course, mention meds given and route, prescriptions, significant lab abnormalities, going to OR and other pertinent info. @ -59-year-old male with erythema and pain to the dorsum of the foot. Patient otherwise well-appearing no acute distress. Physical examination shows erythematous left dorsal foot with some soft tissue swelling. Vital signs otherwise stable. Laboratory evaluation shows pancytopenia likely secondary to cancer treatment. Left x-ray shows no acute processes. Patient has upcoming appointment with podiatry. Did you discuss the management of the patient with other professionals (professionals i.e. , PA, PSYCHIATRIC LPN, lab, RT, psych nurse, social services, shearing shed hand, teacher, security police officer, porter sample case)? Give summary @ -No Was critical care preformed (if so, how long)? @ -No Undiagnosed new problem with uncertain prognosis? @ -No Drug Therapy requiring intensive monitoring for toxicity (Heparin, Nitro, Insulin, Cardizem)? @ -No Were any procedures done? @ -No Diagnosis/symptom? Acute, or Chronic, or Acute on Chronic? Uncomplicated (without systemic symptoms) or Complicated (systemic symptoms)? @ -Left foot pain Side effects of treatment? @ -No Exacerbation, Progression, or Severe Exacerbation? @ -No Poses a threat to life or bodily function? How? (Chest pain, [place], [place], pneumonia, PE, COPD, DKA, ARF, appy, cholecystitis, CVA, Diverticulitis, Homicidal, Camila cidal, threat to staff... and all critical care pts) @ -No - Lab Data Result diagrams: 11/19/24 13:29 Lab Results 11/19/24 Range/Units 13:29 WBC 2.77 L (4.50-10.00) 10*3/uL RBC 3.73 L (4.40-5.60) 10*6/uL Hgb 12.4 L (13.0-17.0) g/dL Hct 33.8 L (39.6-50.0) % MCV 90.6 (80.0-97.0) fL MCH 33.2 H (27.0-32.0) pg MCHC 36.7 (32.0-37.0) g/dL Plt Count 83 L (140-440) 10*3/uL MPV 8.8 L (9.5-12.2) fL Immature Gran % (Auto) 0.4 % Neutrophils % 42.2 % Lymphocytes % 35.0 % Monocytes % 16.6 % Eosinophils % 4.0 % Basophils % 1.8 % Immature Gran # 0.01 (0.00-0.04) 10*3/uL Neutrophils # 1.17 L (1.80-7.70) 10*3/uL Lymphocytes # 0.97 (0.90-5.00) 10*3/uL Monocytes # 0.46 (0.20-1.00) 10*3/uL Eosinophils # 0.11 (0.04-0.35) 10*3/uL Basophils # 0.05 (0.00-0.10) 10*3/uL Manual Slide Review Performed Disposition Clinical Impression: Left foot pain Disposition: HOME SELF-CARE Condition: Good Instructions (If sedation given, give patient instructions): Foot Contusion (ED) Prescriptions: oxyCODONE-APAP 5-325MG [Percocet 5-325 mg] 1 tab PO Q6HR PRN 3 Days #12 tab PRN Reason: Pain Is patient prescribed a controlled substance at d/c from ED?: Yes If prescribed controlled substance>3 days was MAPS reviewed?: Prescribed <3 Days Referrals: Sharron Bass MD [Primary Care Provider] - 1-2 days Time of Disposition: 14:21
[2024-11-19 13:33] LABS: Basophils # (A) 0.05 10*3/uL (0.00-0.10); Basophils % (A) 1.8 %; Eosinophils # (A) 0.11 10*3/uL (0.04-0.35); Eosinophils % (A) 4.0 %; HCT 33.8 % (39.6-50.0); HGB 12.4 g/dL (13.0-17.0); Lymphocytes # (A) 0.97 10*3/uL (0.90-5.00); Lymphocytes % (A) 35.0 %; MCH 33.2 pg (27.0-32.0); MCHC 36.7 g/dL (32.0-37.0); MCV 90.6 fL (80.0-97.0); Monocytes # (A) 0.46 10*3/uL (0.20-1.00); Monocytes % (A) 16.6 %; Neutrophils # (A) 1.17 10*3/uL (1.80-7.70); Neutrophils % (A) 42.2 %; RBC 3.73 10*6/uL (4.40-5.60); RDW 12.8 % (11.5-14.5); WBC 2.77 10*3/uL (4.50-10.00)
--- NOTE | 2024-11-19 13:52 | XR ---
EXAMINATION TYPE: XR foot complete LT DATE OF EXAM: 11/19/2024 1:34 PM COMPARISON: None CLINICAL INDICATION: Male, 59 years old with history of dorsal foot pain, pain TECHNIQUE: XR foot complete LT examined in the AP, oblique, and lateral projections. FINDINGS: Soft tissue swelling present. No evidence of any acute osseous pathology. Multifocal degeneration ch anges throughout the joints of the foot with osteophyte formation and joint space narrowing. Access ory ossicles are present. Calcaneal plantar spurring is present. 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 IMPRESSION: 1. Soft tissue swelling without evidence of acute fracture. 2. 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 [facility], , 11/19/2024 1:50 PM
[2024-11-19 14:09] LABS: Platelet Count 83 10*3/uL (140-440)
[2024-11-19] MEDS: oxyCODONE-APAP 5-325MG 1 EACH TAB PO STA (14:11)
[2024-11-19 14:40] VITALS: BP 147/88; PULSE 102; RESP 20
== END 2024-11-19 14:40 | disposition home or self-care (01) ==
LOC: EC 12:46
DX: M79.672 Pain in left foot (principal); C20 Malignant neoplasm of rectum; Z88.8 Allergy status to other drugs, medicaments and biological substances; W20.8XXA Other cause of strike by thrown, projected or falling object, initial encounter
CPT/HCPCS: 36415; 85025; 99283